=== PATIENT | female | born 1935 | race Caucasian/White ===

== ENCOUNTER 2016-10-05 14:03 | Inpatient (IN) | payer MEDICARE, OTHER ==
[~2016-10-05] VITALS: Ht 157.5 cm; Wt 79.5 kg
[2016-10-05] VITALS (20 sets, daily range): BP systolic 83–183; BP diastolic 44–110; PULSE 76–90; RESP 12–21
[2016-10-05] MEDS ORDERED: ONDANSETRON 4 MG INJ IV STA (14:21)
[2016-10-05] MEDS ORDERED: FAMOTIDINE 20 MG INJ IV STA (14:21)
[2016-10-05] MEDS ORDERED: SOD CHLORIDE 0.9% 1,000 ML IV STA (14:21)
[2016-10-05] MEDS ORDERED: morphine 4 MG/ML VIAL IV STA ×2 (14:21→18:43)
[2016-10-05 15:00] LABS: ADD SCAN DIFF NO
[2016-10-05 15:03] LABS: BASOPHIL # 0.1 10^3/ul (0.0-0.1); BASOPHILS % 0.5 % (0.0-2.0); EOSINOPHILS % 0.4 % (0.0-7.0); HEMATOCRIT 40.1 % (37.0-47.0); HEMOGLOBIN 12.6 g/dl (12.0-16.0); LYMPHOCYTES # 1.7 10^3/ul (0.8-2.9); LYMPHOCYTES % 15.3 % (15.0-51.0); MEAN CORPUSCULAR HEMOGLOBIN 28.4 pg (29.0-33.0); MEAN CORPUSCULAR HGB CONC 31.4 g/dl (32.0-37.0); MEAN CORPUSCULAR VOLUME 90.5 fl (82.0-101.0); MEAN PLATELET VOLUME 11.1 fl (7.4-10.4); MONOCYTE # 0.4 10^3/ul (0.3-0.9); MONOCYTES % 3.8 % (0.0-11.0); NEUTROPHIL # 8.6 10^3/ul (1.6-7.5); NEUTROPHILS % 79.6 % (39.0-77.0); PLATELET COUNT 295 10^3/UL (140-415); RED BLOOD COUNT 4.43 10^6/ul (4.20-5.40); RED CELL DISTRIBUTION WIDTH 15.3 % (11.5-14.5); WHITE BLOOD COUNT 10.8 10^3/ul (4.8-10.8)
[2016-10-05 15:23] LABS: ALBUMIN 4.1 g/dl (3.3-4.9)
[2016-10-05 15:24] LABS: POTASSIUM 4.4 mmol/L (3.5-5.1)
[2016-10-05 15:26] LABS: ALBUMIN/GLOBULIN RATIO 1.24; BILIRUBIN,INDIRECT 0.6 mg/dl (0-1.1); BILIRUBIN,TOTAL 0.6 mg/dl (0.2-1.3); CALCIUM 9.9 mg/dl (8.4-10.2); CREATININE 0.59 mg/dl (0.44-1.00); TOTAL PROTEIN 7.4 g/dl (6.1-8.1)
[2016-10-05 16:35] LABS: ADD UMIC YES; URINE BILIRUBIN (Dip) NEGATIVE (NEGATIVE); URINE BLOOD (Dip) NEGATIVE (NEGATIVE); URINE COLOR LT. YELLOW (YELLOW); URINE GLUCOSE (Dip) NEGATIVE (NEGATIVE); URINE KETONES (Dip) NEGATIVE (NEGATIVE); URINE LEUKOCYTE ESTERASE (Dip) 1+ (NEGATIVE); URINE NITRITE (Dip) NEGATIVE (NEGATIVE); URINE TOTAL PROTEIN (Dip) NEGATIVE (NEGATIVE); URINE UROBILINOGEN (Dip) 0.2 E.U./dL (0.1-1.0)
--- NOTE | 2016-10-05 16:36 | RADRPT ---
PROCEDURE: CT Abdomen and Pelvis without contrast. CLINICAL INDICATION: Abdominal and pelvic pain. TECHNIQUE: CT scan of the abdomen and pelvis without contrast was performed. Coronal and sagittal reformatted images were obtained from the axial source images. Images were reviewed on a high-resolu [employer] PACS workstation. Total exam DLP is 1188.68 mGy-cm. CTDIvol is 21.06 mGy. One or more of the following dose reduction techniques were used: Automated exposure control, adjustment of the mA and/ or kV according to patient size, use of iterative reconstruction technique. COMPARISON: None. FINDINGS: There is mild linear scarring or atelectasis at the left lung base. The lung bases are otherwise no rmal. There is no pleural effusion or pericardial effusion. The heart is mildly enlarged. The liver is normal in size and attenuation. There is no focal hepatic lesion. Gallstones are present in the gallbladder. There is no evidence of cholecystitis. The bile ducts a re normal. The spleen is normal in size. There is no focal splenic lesion. Both adrenals are normal with no enlargement or mass. The pancreas is unremarkable with no mass or evidence of pancreatitis. There is no renal mass or hydronephrosis. There are small nonobstructing 0.1-0.2 cm calculi in both kidneys. The abdominal aorta is not dilated. There is calcification in the aorta consistent with atherosclero sis. There is no retroperitoneal lymphadenopathy or mass. There is a soft tissue mass in the pelvis posterior to the right acetabulum measuring 4.6 x 3.5 x 4. 7 cm in AP, transverse, and cranial caudal dimensions. Small calcifications are present within the mass. The mass has smooth margins. There is no other pelvic lymphadenopathy or mass. The bladder and distal ureters are normal. The periappendiceal region is unremarkable with no evidence of appendicitis. There is diverticulosis throughout the colon. There is no evidence of diverticulitis. There is a l eft lower quadrant spigelian hernia containing a loop of small bowel with surrounding edema consiste nt with incarceration of the spigelian hernia. There is no free fluid or free gas. There is no abscess or perforation demonstrated. There are degenerative changes of the spine. There is no fracture or lytic lesion. IMPRESSION: 1. Mild linear scarring or atelectasis at the left lung base. 2. Mild cardiomegaly. 3. Gallstones in the gallbladder. No evidence of cholecystitis. 4. Small nonobstructing bilateral renal calculi. 5. Atherosclerosis. 6. Soft tissue mass in the pelvis posterior to the right acetabulum measuring up to 4.7 cm in maxim al dimension. This may be benign or malignant. Correlation with MRI should be considered. 7. Diverticulosis throughout the colon. No evidence of diverticulitis. 8. Left lower quadrant spigelian hernia containing a loop of bowel with surrounding edema consisten t with incarceration. 9. Degenerative changes of the spine. Call report: A call report of the findings was made to Dr. Arenas on 10/05/2016 at 1630 hours. RPTAT: QQ .Rodri Don MD, MD Date Time Electronically viewed and signed by .Rodri Don MD, on 10/05/2016 16:36 .R/
[2016-10-05] MEDS ORDERED: LACT-9 PO (16:49)
[2016-10-05 16:50] LABS: BACTERIA,URINE MANY; SQUAMOUS EPITHELIAL CELL,UR MANY; URINE RBCS 0-2 /HPF (0)
[2016-10-05] MEDS ORDERED: MAGN1TAB PO (16:52)
[2016-10-05] MEDS ORDERED: APIX5TAB PO (16:53)
[2016-10-05] MEDS ORDERED: ATOR80TA75 PO (16:53)
[2016-10-05] MEDS ORDERED: FAMO-18 PO (16:54)
[2016-10-05] MEDS ORDERED: DOCU-144 PO (16:54)
[2016-10-05] MEDS ORDERED: LISI-313 PO (16:55)
[2016-10-05] MEDS ORDERED: SIME125T PO (16:56)
[2016-10-05] MEDS ORDERED: METO-448 PO (16:57)
[2016-10-05] MEDS ORDERED: ACET325T45 PO (16:58)
[2016-10-05] MEDS ORDERED: POLY17PO6 PO (16:59)
[2016-10-05] MEDS ORDERED: MULT-105 PO (16:59)
[2016-10-05] MEDS ORDERED: MAGN400O4 PO (17:00)
[2016-10-05] MEDS ORDERED: ONDANSETRON 4 MG INJ IV PRN ×4 (17:00→21:30)
[2016-10-05] MEDS ORDERED: ACETAMINOPHEN 325 MG TAB PO PRN ×2 (17:00→18:30)
[2016-10-05] MEDS ORDERED: ESCI10TA PO (17:01)
[2016-10-05] MEDS ORDERED: TEMA15CA PO (17:01)
[2016-10-05] MEDS ORDERED: BISA10SU75 PR (17:02)
[2016-10-05] MEDS ORDERED: FLEETPED PR (17:03)
--- NOTE | 2016-10-05 17:06 | CONS ---
Date/Time of Note Date/Time of Note DATE: 10/05/16 TIME: 17:05 Assessment/Plan Assessment/Plan Chief Complaint/Hosp Course ASSESSMENT AND PLAN: This is an 81-year-old female who presents with: soft tissue mass in the right acetabulum, questionable malignancy versus benign. check tumor markers will d/w family how aggressive we will be with w-up Mild anemia. We will continue to monitor hemoglobin and hematocrit levels. Incarcerated abdominal hernia surg eval History of cerebrovascular accident with left-sided hemiparesis. dc anticoagulation prior surgery. Once the patient has been cleared from surgery we will resume full anticoagulation. History of coronary artery disease, continue medical management. Hypertension. Blood pressure is currently controlled. We will continue to monitor. We will resume blood pressure medications once the patient is tolerating p.o. History of dyslipidemia. Continue statin therapy. Gastrointestinal and deep venous thrombosis prophylaxis. Continue Pepcid and heparin. General debility. We will place a physical therapy consult for evaluation. Problems: Consultation Date/Type/Reason Admit Date/Time 10/05/16 Date of Consultation: Oct 05, 2016 Type of Consultation: HEMEON Reason for Consultation ANEMIA PELVIC MASS Referring Provider: MEGAN FLORES DO Hx of Present Illness This is an 81-year-old female with a past medical history of hypertension, a history of CVA with left-sided weakness, history of diverticulitis, history of coronary artery disease, history of depression, history of dyslipidemia, who presents to [facility] for evaluation of abdominal pain. The patient states the pain has been sharp and ongoing for the last 3 days. She describes it as localizing to her left lower quadrant. The patient felt this was similar to previous history of diverticulitis. She was having mild nausea, but denied any vomiting. The patient upon arrival to the emergency room had a CT scan of the abdomen and pelvis which showed diverticulitis and left lower quadrant hernia containing a loop of bowel, surrounding edema, consistent with incarceration, as well as a soft tissue mass in the pelvis in the posterior right acetabulum measuring 4.7 cm. I WAS ASKED TO SEE PT RE soft tissue mass in the pelvis PAST MEDICAL HISTORY: As stated above, history of hypertension, history of CVA with left-sided hemiparesis, history of dyslipidemia, history of coronary artery disease, history of depression. PAST SURGICAL HISTORY: Ovarian cyst removal. ALLERGIES: NO KNOWN DRUG ALLERGIES. FAMILY HISTORY: Noncontributory. MEDICATIONS: The patient's medications have been reviewed and reconciled. REVIEW OF SYSTEMS: A 14-point review of systems was conducted. Pertinent positives stated in HPI, otherwise negative. Social History Smoking Status: Never smoker Exam/Review of Systems Vital Signs Vitals Vital Signs Date Time Temp Pulse Resp B/P Pulse Ox O2 Delivery O2 Flow Rate FiO2 10/05/16 14:10 98.7 84 20 141/90 98 Exam PHYSICAL EXAMINATION: HEENT: Head is normocephalic. Pupils are reactive to light. NECK: Supple. HEART: Regular rate. LUNGS: Show diminished breath sounds at the base. ABDOMEN: Soft with abdominal binder. There is some mild tenderness to palpation. No rebound. EXTREMITIES: Negative for clubbing or cyanosis. No edema. DERMATOLOGIC: No rashes. MUSCULOSKELETAL: No joint effusions. NEUROLOGIC: There is noted left-sided weakness. Results Result Diagram: 10/05/16 1430 10/05/16 1430 Results 24 hrs Laboratory Tests Test 10/05/16 14:30 10/05/16 16:10 White Blood Count 10.8 Red Blood Count 4.43 Hemoglobin 12.6 Hematocrit 40.1 Mean Corpuscular Volume 90.5 Mean Corpuscular Hemoglobin 28.4 L Mean Corpuscular Hemoglobin Concent 31.4 L Red Cell Distribution Width 15.3 H Platelet Count 295 Mean Platelet Volume 11.1 H Neutrophils % 79.6 H Lymphocytes % 15.3 Monocytes % 3.8 Eosinophils % 0.4 Basophils % 0.5 Nucleated Red Blood Cells % 0.0 Neutrophils # 8.6 H Lymphocytes # 1.7 Monocytes # 0.4 Eosinophils # 0.0 Basophils # 0.1 Nucleated Red Blood Cells # 0.0 Sodium Level 139 Potassium Level 4.4 Chloride Level 101 Carbon Dioxide Level 25 Anion Gap 17 H Blood Urea Nitrogen 17 Creatinine 0.59 Glucose Level 118 Lactic Acid Level 1.2 Calcium Level 9.9 Total Bilirubin 0.6 Direct Bilirubin 0.00 Indirect Bilirubin 0.6 Aspartate Amino Transf (AST/SGOT) 28 Alanine Aminotransferase (ALT/SGPT) 28 Alkaline Phosphatase 150 H Total Protein 7.4 Albumin 4.1 Globulin 3.30 H Albumin/Globulin Ratio 1.24 Lipase 28 Urine Color LT. YELLOW Urine Clarity CLOUDY Urine pH 6.0 Urine Specific [place] 1.015 Urine Ketones NEGATIVE Urine Nitrite NEGATIVE Urine Bilirubin NEGATIVE Urine Urobilinogen 0.2 E.U./dL Urine Leukocyte Esterase 1+ H Urine Microscopic RBC 0-2 Urine Microscopic WBC 10-25 Urine Squamous Epithelial Cells MANY Urine Bacteria MANY Urine Hemoglobin NEGATIVE Urine Glucose NEGATIVE Urine Total Protein NEGATIVE TERRA RANGEL MD Oct 05, 2016 17:06
[2016-10-05] MEDS ORDERED: SOD CHLORIDE 0.9% 1,000 ML IV SCH (18:10)
--- NOTE | 2016-10-05 18:18 | ERA ---
ER Documentation Chief Complaint Date/Time DATE: 10/05/16 TIME: 18:15 Chief Complaint AP LOWER QUADS WITH NORMAL BM AND NO N/V. NO DIARRHEA. POOR PO INTAKE HPI This is an 81-year-old female who presents to the emergency room for evaluation of abdominal pain. The patient localizes her pain to the left lower quadrant and states that it is an achy and sharp pain that has been present for 3 days. The patient states that this feels similar to her previous episodes of diverticulitis. She states that she has mild nausea but denies any vomiting or diarrhea associated with this. Patient states that she is passing gas, but has not had a bowel movement today. The patient denies any aggravating or relieving factors for her pain and came to the ER for evaluation ROS All systems reviewed and are negative except as per history of present illness. Medications Home Meds Reported Medications Sod Phosphate/Sod Biphosphate* (Fleet* Enema Pediatric) 66.6 Ml Soln, 66.6 ML WI Q2DAYS Y for CONSTIPATION, ENEMA 10/05/16 Bisacodyl* (Bisacodyl*) 10 Mg Supp, 10 MG WI Q24H Y for PRN, SUPP 10/05/16 Temazepam* (Temazepam*) 15 Mg Capsule, 15 MG PO HS Y for INSOMNIA, CAP 10/05/16 Escitalopram Oxalate* (Lexapro*) 10 Mg Tablet, 10 MG PO QHS, #30 TAB 10/05/16 Magnesium Hydroxide* (Milk Of Magnesia*) 400 Mg/5 Ml Oral.susp, 30 ML PO Q24H Y for PRN, ML 10/05/16 Polyethylene Glycol* (Miralax*) 17 Gm Powd.pack, 17 GM PO DAILY, #30 PACKET 10/05/16 Multivitamin with Minerals (Multivitamins with Minerals) 1 Each Tablet, 1 EACH PO DAILY, TAB 10/05/16 Acetaminophen* (Acetaminophen*) 325 Mg Tablet, 650 MG PO Q4H Y for FOR PAIN 1-, #30 TAB 10/05/16 Metoprolol Tartrate* (Lopressor*) 25 Mg Tab, 12.5 MG PO BID, #60 TAB HOLD IF SBP<110 10/05/16 Simethicone* (Phazyme*) 125 Mg Tab.chew, 125 MG PO QHS Y for DISTENSION/GAS/ BLOATING, TAB.CHEW 10/05/16 Lisinopril* (Lisinopril*) 5 Mg Tablet, 5 MG PO DAILY, #30 TAB HOLD IF SBP<110 10/05/16 Famotidine* (Pepcid*) 20 Mg Tablet, 20 MG PO BID, #60 TAB 10/05/16 Docusate Sodium* (Colace*) 100 Mg Capsule, 100 MG PO BID, #60 CAP 10/05/16 Atorvastatin* (Atorvastatin*) 80 Mg Tablet, 80 MG PO QHS, #30 TAB 10/05/16 Apixaban* (Eliquis*) 5 Mg Tablet, 5 MG PO BID, TAB 10/05/16 Magnesium Carbonate/Al Hydrox (Gaviscon Es Tablet Chew) 1 Each Tab.chew, 1 EACH PO TID Y for PRN, TAB.CHEW 10/05/16 Lactose-Free Food (ENSURE LIQUID) 237 Ml Liquid, 237 ML PO BID 10/05/16 Allergies Allergies: Coded Allergies: No Known Allergy (Unverified , 10/05/16) PMhx/Soc History of Surgery: Yes (OVARIAN CYST REMOVAL ) Anesthesia Reaction: No Hx Neurological Disorder: Yes (STROKE WITH LT SIDE WEAKNESS ) Hx Respiratory Disorders: No Hx Cardiac Disorders: Yes (HTN ) Hx Psychiatric Problems: No Hx Miscellaneous Medical Probl: Yes (DIVERTICULITIS ) Hx Alcohol Use: No Hx Substance Use: No Hx Tobacco Use: No Smoking Status: Never smoker Physical Exam Vitals Vital Signs Date Time Temp Pulse Resp B/P Pulse Ox O2 Delivery O2 Flow Rate FiO2 10/05/16 17:30 90 18 135/87 96 Room Air 10/05/16 14:10 98.7 84 20 141/90 98 Physical Exam INITIAL VITAL SIGNS: Reviewed by me GENERAL: The patient is well developed and appropriate for usual state of health in no apparent distress HEENT: Pupils equal, round, and reactive to light. EOMI. There is no scleral icterus. NECK: C-spine is soft and supple, there is no meningismus. There is no cervical lymphadenopathy. LUNGS: Clear to auscultation bilaterally. There are no rales, wheezes or rhonchi. HEART: Regular rate and rhythm, no murmurs, clicks, rubs or gallops. ABDOMEN: Tender to palpation in the left lower quadrant, bowel sounds 4 EXTREMITIES: There is no peripheral cyanosis or edema. No focal swelling or erythema. NEUROLOGICAL: The patient moves all four extremities with 5/5 strength. Cranial nerves II - XII are intact. Normal gait. Alert and oriented SKIN: There is no apparent rash or petechiae. HEME/LYMPHATIC: There is no evidence of excessive bruising or lymphedema. PSYCHIATRIC: The patient does not appear anxious or depressed. Result Diagram: 10/05/16 1430 10/05/16 1430 Results 24 hrs Laboratory Tests Test 10/05/16 14:30 10/05/16 16:10 White Blood Count 10.810^3/ul Red Blood Count 4.4310^6/ul Hemoglobin 12.6g/dl Hematocrit 40.1% Mean Corpuscular Volume 90.5fl Mean Corpuscular Hemoglobin 28.4pg Mean Corpuscular Hemoglobin Concent 31.4g/dl Red Cell Distribution Width 15.3% Platelet Count 63366^3/UL Mean Platelet Volume 11.1fl Neutrophils % 79.6% Lymphocytes % 15.3% Monocytes % 3.8% Eosinophils % 0.4% Basophils % 0.5% Nucleated Red Blood Cells % 0.0/100WBC Neutrophils # 8.610^3/ul Lymphocytes # 1.710^3/ul Monocytes # 0.410^3/ul Eosinophils # 0.010^3/ul Basophils # 0.110^3/ul Nucleated Red Blood Cells # 0.010^3/ul Sodium Level 139mmol/L Potassium Level 4.4mmol/L Chloride Level 101mmol/L Carbon Dioxide Level 25mmol/L Anion Gap 17 Blood Urea Nitrogen 17mg/dl Creatinine 0.59mg/dl Glucose Level 118mg/dl Lactic Acid Level 1.2mmol/L Calcium Level 9.9mg/dl Total Bilirubin 0.6mg/dl Direct Bilirubin 0.00mg/dl Indirect Bilirubin 0.6mg/dl Aspartate Amino Transf (AST/SGOT) 28IU/L Alanine Aminotransferase (ALT/SGPT) 28IU/L Alkaline Phosphatase 150IU/L Total Protein 7.4g/dl Albumin 4.1g/dl Globulin 3.30g/dl Albumin/Globulin Ratio 1.24 Lipase 28U/L Urine Color LT. YELLOW Urine Clarity CLOUDY Urine pH 6.0 Urine Specific [place] 1.015 Urine Ketones NEGATIVE Urine Nitrite NEGATIVE Urine Bilirubin NEGATIVE Urine Urobilinogen 0.2 E.U./dL Urine Leukocyte Esterase 1+ Urine Microscopic RBC 0-2/HPF Urine Microscopic WBC 10-25/HPF Urine Squamous Epithelial Cells MANY Urine Bacteria MANY Urine Hemoglobin NEGATIVE Urine Glucose NEGATIVE% Urine Total Protein NEGATIVE Current Medications Medications (Trade) Dose Ordered Sig/Portillo Route PRN Reason Start Time Stop Time Status Last Admin Dose Admin Sodium Chloride (NS) 1,000 ml @ 1,000 mls/hr Q1H STAT IV 10/05/16 14:21 10/05/16 15:20 DC 10/05/16 15:12 Morphine Sulfate (morphine) 4 mg ONCE STAT IV 10/05/16 14:21 10/05/16 14:22 DC 10/05/16 15:12 Ondansetron HCl (Zofran Inj) 4 mg ONCE STAT IV 10/05/16 14:21 10/05/16 14:22 DC 10/05/16 15:12 Famotidine (Pepcid Iv) 20 mg ONCE STAT IV 10/05/16 14:21 10/05/16 14:22 DC 10/05/16 15:12 Ondansetron HCl (Zofran Inj) 4 mg BRIDGE ORDER PRN IV NAUSEA AND/OR VOMITING 10/05/16 17:00 10/06/16 16:59 Acetaminophen 650 mg 650 mg ER BRIDGE PRN PO MILD PAIN/FEVER 10/05/16 17:00 10/06/16 16:59 Sodium Chloride (NS) 1,000 ml @ 80 mls/hr [id number] IV 10/05/16 18:10 10/06/16 06:39 Ondansetron HCl (Zofran Inj) 4 mg BRIDGE ORDER PRN IV NAUSEA AND/OR VOMITING 10/05/16 18:30 10/06/16 18:29 Acetaminophen (Tylenol Tab) 650 mg ER BRIDGE PRN PO MILD PAIN/FEVER 10/05/16 18:30 10/06/16 18:29 Procedures/MDM CT abdomen pelvis without: 1. Mild linear scarring or atelectasis at the left lung base. 2. Mild cardiomegaly. 3. Gallstones in the gallbladder. No evidence of cholecystitis. 4. Small nonobstructing bilateral renal calculi. 5. Atherosclerosis. 6. Soft tissue mass in the pelvis posterior to the right acetabulum measuring up to 4.7 cm in maximal dimension. This may be benign or malignant. Correlation with MRI should be considered. 7. Diverticulosis throughout the colon. No evidence of diverticulitis. 8. Left lower quadrant spigelian hernia containing a loop of bowel with surrounding edema consistent with incarceration. 9. Degenerative changes of the spine. EKG: Rate/Rhythm: [Normal Sinus Rhythm] QRS, ST, T-waves: [No changes consistent w/ acute ischemia] Impression: [No evidence of ischemia or arrhythmia] This 81-year-old female presents to the ER for evaluation of abdominal pain. When I evaluated this patient she did have left lower quadrant abdominal pain and does have a history of diverticulitis. CT of abdomen pelvis was obtained which does show an incarcerated spigelian hernia with mild edema. I did contact this patient's primary care physician, Dr. Chin who would like this patient admitted to Dr. Bloom. I have contacted our general surgeon collections technician who agrees to see this patient. This patient and the patient's son are aware this patient's condition and the patient will be kept n.p.o. Pain is controlled with morphine. The patient is hemodynamically stable for [facility] floor at this time. Departure Diagnosis: Primary Impression: Incarcerated hernia Additional Impressions: Spigelian hernia Abdominal pain Condition: Stable IRAIDA JAMES DO Oct 05, 2016 18:18
--- NOTE | 2016-10-05 19:24 | CONS ---
Date/Time of Note Date/Time of Note DATE: 10/05/16 TIME: 19:09 Assessment/Plan Assessment/Plan Chief Complaint/Hosp Course 81-year-old female with incarcerated left spigelian hernia * CT scan personally reviewed. I agree with the radiologist's findings. * Given incarcerated nature of hernia containing small bowel and inflammatory changes within the hernia I would recommend emergent surgical intervention to prevent bowel strangulation. * The patient has a recent history of a CVA and is on anticoagulation. This significantly increases the risk of an operative procedure, however, the consequences of nonoperation would before more detrimental to the patient. * I discussed the above with the patient's son at the bedside including all risks and benefits of the procedure, including, but not limited to: Wound infection, excessive bleeding, further cerebrovascular accident, cardiac complications, injury to surrounding intra-abdominal organs, hernia recurrence, etc. also discussed the case with the patient's grandson was a polytechnic registrar. They all understand and agreed to the treatment plan as outlined. * Informed consent will be obtained and she'll be scheduled for emergent surgical intervention Problems: Consultation Date/Type/Reason Admit Date/Time 10/05/16 Date of Consultation: Oct 05, 2016 Type of Consultation: GENERAL SURGERY Reason for Consultation Abdominal pain Hx of Present Illness Patient is an 81-year-old female with a history of CVA in June 2016, diverticulitis who presents with a 1 day history of abdominal pain. The history is mostly obtained from the patient's son at the bedside. The pain is located in the left lower quadrant. It was associated with nausea, but no vomiting. She did have a regular bowel movement yesterday, but no bowel movement today. She has been passing flatus. There has been no fever/chills. On arrival to the emergency room the patient was found to be hemodynamically stable and without leukocytosis. A CT scan of the abdomen and pelvis showed findings consistent with an incarcerated left Spigelian hernia containing a loop of bowel. A 14 point review of systems was conducted and was negative except for that which was mentioned in history of present illness Past Medical History Medical History: diverticulitis, other (CVA) Past Surgical History Past Surgical Hx: no surgical history Family History Significant Family History: no pertinent family hx Social History Smoking Status: Never smoker Exam/Review of Systems Vital Signs Vitals Vital Signs Date Time Temp Pulse Resp B/P Pulse Ox O2 Delivery O2 Flow Rate FiO2 10/05/16 18:00 89 20 152/80 98 Nasal Cannula 2.0 10/05/16 14:10 98.7 Exam GENERAL: Awake, alert, oriented 3. No acute distress. SKIN: No jaundice. HEENT: PERRLA, EOMI, No Scleral Icterus NECK: Supple without JVD CARDIOVASCULAR: S1S2, regular rate and rhythm. No murmurs appreciated. RESPIRATORY: Clear to auscultation bilaterally. ABDOMEN: Obese, Soft, bowel sounds present, nondistended, there is left lower quadrant tenderness to palpation. There is a firm, nonreducible mass in the area of the patient's tenderness. There is no rebound or guarding or evidence of peritonitis. There are no overlying skin changes. EXTREMITIES: There is left upper extremity and left lower extremity weakness from prior CVA NEUROLOGIC: Cranial nerves II-XII are intact. Sensation is intact grossly. Results Result Diagram: 10/05/16 1430 10/05/16 1430 Results 24 hrs Laboratory Tests Test 10/05/16 14:30 10/05/16 16:10 White Blood Count 10.8 Red Blood Count 4.43 Hemoglobin 12.6 Hematocrit 40.1 Mean Corpuscular Volume 90.5 Mean Corpuscular Hemoglobin 28.4 L Mean Corpuscular Hemoglobin Concent 31.4 L Red Cell Distribution Width 15.3 H Platelet Count 295 Mean Platelet Volume 11.1 H Neutrophils % 79.6 H Lymphocytes % 15.3 Monocytes % 3.8 Eosinophils % 0.4 Basophils % 0.5 Nucleated Red Blood Cells % 0.0 Neutrophils # 8.6 H Lymphocytes # 1.7 Monocytes # 0.4 Eosinophils # 0.0 Basophils # 0.1 Nucleated Red Blood Cells # 0.0 Sodium Level 139 Potassium Level 4.4 Chloride Level 101 Carbon Dioxide Level 25 Anion Gap 17 H Blood Urea Nitrogen 17 Creatinine 0.59 Glucose Level 118 Lactic Acid Level 1.2 Calcium Level 9.9 Total Bilirubin 0.6 Direct Bilirubin 0.00 Indirect Bilirubin 0.6 Aspartate Amino Transf (AST/SGOT) 28 Alanine Aminotransferase (ALT/SGPT) 28 Alkaline Phosphatase 150 H Total Protein 7.4 Albumin 4.1 Globulin 3.30 H Albumin/Globulin Ratio 1.24 Lipase 28 Urine Color LT. YELLOW Urine Clarity CLOUDY Urine pH 6.0 Urine Specific [place] 1.015 Urine Ketones NEGATIVE Urine Nitrite NEGATIVE Urine Bilirubin NEGATIVE Urine Urobilinogen 0.2 E.U./dL Urine Leukocyte Esterase 1+ H Urine Microscopic RBC 0-2 Urine Microscopic WBC 10-25 Urine Squamous Epithelial Cells MANY Urine Bacteria MANY Urine Hemoglobin NEGATIVE Urine Glucose NEGATIVE Urine Total Protein NEGATIVE Medications Medications Current Medications Sodium Chloride (NS) 1,000 ml @ 80 mls/hr [id number] IV ; Start 10/05/16 at 18:10 ; Stop 10/06/16 at 06:39 Procedures Procedures PROCEDURE: CT Abdomen and Pelvis without contrast. CLINICAL INDICATION: Abdominal and pelvic pain. TECHNIQUE: CT scan of the abdomen and pelvis without contrast was performed. Coronal and sagittal reformatted images were obtained from the axial source images. Images were reviewed on a high-resolution PACS workstation. Total exam DLP is 1188.68 mGy-cm. CTDIvol is 21.06 mGy. One or more of the following dose reduction techniques were used: Automated exposure control, adjustment of the mA and/or kV according to patient size, use of iterative reconstruction technique. COMPARISON: None. FINDINGS: There is mild linear scarring or atelectasis at the left lung base. The lung bases are otherwise normal. There is no pleural effusion or pericardial effusion. The heart is mildly enlarged. The liver is normal in size and attenuation. There is no focal hepatic lesion. Gallstones are present in the gallbladder. There is no evidence of cholecystitis. The bile ducts are normal. The spleen is normal in size. There is no focal splenic lesion. Both adrenals are normal with no enlargement or mass. The pancreas is unremarkable with no mass or evidence of pancreatitis. There is no renal mass or hydronephrosis. There are small nonobstructing 0.1- 0.2 cm calculi in both kidneys. The abdominal aorta is not dilated. There is calcification in the aorta consistent with atherosclerosis. There is no retroperitoneal lymphadenopathy or mass. There is a soft tissue mass in the pelvis posterior to the right acetabulum measuring 4.6 x 3.5 x 4.7 cm in AP, transverse, and cranial caudal dimensions. Small calcifications are present within the mass. The mass has smooth margins. There is no other pelvic lymphadenopathy or mass. The bladder and distal ureters are normal. The periappendiceal region is unremarkable with no evidence of appendicitis. There is diverticulosis throughout the colon. There is no evidence of diverticulitis. There is a left lower quadrant spigelian hernia containing a loop of small bowel with surrounding edema consistent with incarceration of the spigelian hernia. There is no free fluid or free gas. There is no abscess or perforation demonstrated. There are degenerative changes of the spine. There is no fracture or lytic lesion. IMPRESSION: 1. Mild linear scarring or atelectasis at the left lung base. 2. Mild cardiomegaly. 3. Gallstones in the gallbladder. No evidence of cholecystitis. 4. Small nonobstructing bilateral renal calculi. 5. Atherosclerosis. 6. Soft tissue mass in the pelvis posterior to the right acetabulum measuring up to 4.7 cm in maximal dimension. This may be benign or malignant. Correlation with MRI should be considered. 7. Diverticulosis throughout the colon. No evidence of diverticulitis. 8. Left lower quadrant spigelian hernia containing a loop of bowel with surrounding edema consistent with incarceration. 9. Degenerative changes of the spine. Call report: A call report of the findings was made to Dr. James on 2016 at 1630 hours. RPTAT: QQ .Rodri Don MD, Date Time Electronically viewed and signed by .Rodri Don MD, on 10/05/2016 16:36 .R/ CC: IRAIDA JAMES MICHAEL A. MD Oct 05, 2016 19:19
[2016-10-05] MEDS ORDERED: HYDROmorphONE (0.2 MG/ML) 10ML SYG IV PRN (20:00)
[2016-10-05] MEDS ORDERED: FENTAnyl 50 MCG/ML VIAL IV PRN ×2 (20:00)
[2016-10-05] MEDS ORDERED: LABETALOL HCL 20MG INJ IV PRN (20:00)
[2016-10-05] MEDS ORDERED: hydrALAzine 20 MG INJ IV PRN (20:00)
[2016-10-05] MEDS ORDERED: EPHEDrine SULFATE 50 MG/5 ML SYG IV PRN (20:00)
[2016-10-05] MEDS ORDERED: MEPERIDINE 25 MG INJ IV PRN (20:00)
[2016-10-05] MEDS ORDERED: FENTAnyl 50 MCG/ML VIAL ONE (20:02)
[2016-10-05] MEDS: BUPIVACAINE 0.25% (MPF) 30 ML INJ ONE ×2 (20:16→21:20)
[2016-10-05] MEDS ORDERED: POLYMYXIN/BACITRACIN 1L IRRIG ONE (20:48)
[2016-10-05] MEDS ORDERED: DEXAMETHASONE 4 MG/ML 1 ML INJ ONE (21:17)
[2016-10-05] MEDS ORDERED: ONDANSETRON 4 MG INJ ONE (21:19)
[2016-10-05] MEDS ORDERED: GLYCOPYRROLATE 0.4 MG INJ ONE (21:29)
[2016-10-05] MEDS ORDERED: NEOSTIGMINE 3 MG/3 ML SYRINGE ONE (21:29)
[2016-10-05] MEDS: CEFAZOLIN 2 GM/50 ML (PMX) 50 ML IVPB SCH (21:30)
--- NOTE | 2016-10-05 21:49 | OPR ---
Date/Time of Note Date/Time of Note DATE: 10/05/16 TIME: 21:38 Operative Report Procedure Date: Oct 05, 2016 Preoperative Diagnosis Incarcerated abdominal wall hernia Postoperative Diagnosis Incarcerated abdominal wall hernia Operation Performed 1. Laparoscopic repair of incarcerated abdominal wall hernia 2. Laparoscopic lysis of adhesions Surgeon: SULEIMAN LUI MD Anesthesia: general Anesthesiologist: AURY COLEMAN Estimated Blood Loss: minimal Specimens None Complications: None Pt Condition Post Procedure: stable Disposition: PACU Indications The patient is an obese 81-year-old female with a history of recent CVA on anti- thrombotic therapy who presented to the emergency room complaining of a 1 day history of severe left lower quadrant abdominal pain. Patient had clinical signs and symptoms of an incarcerated left lower quadrant abdominal wall hernia. CT scan which was done confirmed the presence of incarcerated small bowel within the hernia. She was therefore scheduled for emergent surgical repair. All risks and benefits of the procedure, including, but not limited to: Wound infection, excessive bleeding given the fact that she is on anti- thrombotic therapy, repeat CVA, injury to intra-abdominal organs, hernia recurrence, possible need for bowel resection, , etc. were all explained to the patient's son in extensive detail. Both the patient and the son fully understood and wished to proceed with the procedure. Informed consent was obtained. Operative\Procedure Findings Abdominal wall hernia containing incarcerated small bowel inferior and medial to the iliac crest on the left side. Bowel was hemorrhagic, but viable. Procedure Description Patient was brought to the operating room and placed supine on the operating table. Bilateral sequential compression devices were placed on both lower extremities. A dose of broad-spectrum perioperative intravenous antibiotics was given. The patient had a Cramer catheter inserted while in the emergency room. After the induction of smooth general endotracheal anesthesia the patient's abdomen was prepped and draped in standard surgical fashion. After performance of the surgical timeout a 5 mm incision was made in the midline subxiphoid area. Veress needle was used to access the intra-abdominal cavity atraumatically. Pneumoperitoneum was then obtained and the Veress needle was exchanged for a 5 mm trocar through which a 5 mm 30 laparoscope was placed. Diagnostic laparoscopy showed a hernia defect in the left lower quadrant inferior and lateral to the location of a spigelian hernia. This hernia defect was more inferior and medial to the iliac crest on the left side. There was small bowel incarcerated within the hernia defect. There were intra-abdominal adhesions to the anterior abdominal wall. At this point another 5 mm port was placed in line with the umbilicus near the anterior axillary line. Using the LigaSure device lysis of adhesions was performed in order to be able to place the third port. The 12 mm port was then placed in the right lower quadrant. All port sites were anesthetized with 0.25% Marcaine prior to incision. Using manual external pressure and slight traction the hernia was reduced. The small bowel was examined. It was noted to be hemorrhagic, but viable. The hernia defect was then measured. It measured approximately 2 cm in diameter. Warm irrigation was used over the area of the hemorrhagic small bowel. Small bowel was observed during the entire procedure and repair of the hernia defect and appeared more viable as the hemorrhagic nature improved. It was then decided to repair the hernia defect. The defect was repaired using a 9 cm round Covidien Symbotex mesh. A 3-0 Vicryl suture was placed through the mid portion of the mesh. Mesh was then soaked in antibiotic irrigation and inserted into the field. A small incision was made using the 11 blade scalpel the center of the hernia defect and the suture passer was passed through the center of the defect. The marking suture in the midportion of the mesh was then grasped and pulled out through this site. The mesh was anchored to the abdominal wall. The mesh was then secured in place in double crown fashion using a secure strap tacker. With the repair complete hemostasis was inspected for and noted to be total. The fascia of the 12 mm port site was then reapproximated using an Endo Close device and 0 Vicryl suture. Pneumoperitoneum was then released and all remaining trochars were withdrawn under direct vision. The incisions were irrigated with more warm normal saline. Further local anesthesia was applied around the skin of the incision sites. The skin was then reapproximated using 4- 0 Monocryl sutures in subcuticular fashion. Incisions were cleaned and Dermabond was applied as was an abdominal binder. The patient was then awoken from anesthesia and transported to the recovery room in stable condition. All counts were correct at the end of the case 2 SULEIMAN LUI MD Oct 05, 2016 21:48
[2016-10-05] MEDS: HYDROmorphONE (0.2 MG/ML) 10ML SYG IV PRN ×2 (22:10→22:21)
[2016-10-06] VITALS (11 sets, daily range): BP systolic 116–140; BP diastolic 64–84; PULSE 73–88; RESP 18–20; Ht 157.5 cm; Wt 79.5 kg
[2016-10-06] MEDS: CEFAZOLIN 2 GM/50 ML (PMX) 50 ML IVPB SCH ×2 (07:01→14:43)
[2016-10-06 07:52] LABS: ADD SCAN DIFF NO
[2016-10-06 07:54] LABS: BASOPHILS % 0.1 % (0.0-2.0); HEMATOCRIT 36.6 % (37.0-47.0); HEMOGLOBIN 11.3 g/dl (12.0-16.0); LYMPHOCYTES # 1.2 10^3/ul (0.8-2.9); LYMPHOCYTES % 11.7 % (15.0-51.0); MEAN CORPUSCULAR HEMOGLOBIN 28.3 pg (29.0-33.0); MEAN CORPUSCULAR HGB CONC 30.9 g/dl (32.0-37.0); MEAN CORPUSCULAR VOLUME 91.7 fl (82.0-101.0); MEAN PLATELET VOLUME 10.4 fl (7.4-10.4); MONOCYTE # 0.3 10^3/ul (0.3-0.9); MONOCYTES % 2.5 % (0.0-11.0); NEUTROPHILS % 85.5 % (39.0-77.0); PLATELET COUNT 281 10^3/UL (140-415); RED BLOOD COUNT 3.99 10^6/ul (4.20-5.40); RED CELL DISTRIBUTION WIDTH 15.5 % (11.5-14.5); WHITE BLOOD COUNT 10.5 10^3/ul (4.8-10.8)
[2016-10-06 08:20] LABS: CALCIUM 9.2 mg/dl (8.4-10.2); CREATININE 0.57 mg/dl (0.44-1.00); POTASSIUM 4.7 mmol/L (3.5-5.1)
[2016-10-06] MEDS ORDERED: ACETAMINOPHEN 325 MG TAB PO PRN (08:30)
[2016-10-06] MEDS ORDERED: MAGNESIUM HYDROXIDE 30ML CUP PO PRN (08:30)
--- NOTE | 2016-10-06 08:30 | PN ---
Date/Time of Note Date/Time of Note DATE: 10/06/16 TIME: 08:27 Assessment/Plan Lines/Catheters IV Catheter Type (from Nrs): Peripheral IV Horner in Place (from Nrsg): Yes Assessment/Plan Assessment/Plan 81-year-old female s/p laparoscopic repair of incarcerated abdominal wall hernia * Clinically doing well * Labs are OK * Advance diet to clear liquids * OOB/IS/PT * D/C horner if OK with primary team * Can start prophylactic subcutaneous heparin * If remains stable can resume full anticoagulation in AM Discussed with primary care team Subjective 24 Hr Interval Summary Feeling better. Denies abdominal pain. Afebrile. Exam/Review of Systems Vital Signs Vitals Vital Signs Date Time Temp Pulse Resp B/P Pulse Ox O2 Delivery O2 Flow Rate FiO2 10/06/16 07:29 98.2 90 18 120/75 92 10/05/16 22:57 Nasal Cannula 3.0 Intake and Output 10/05/16 10/05/16 10/06/16 15:00 23:00 07:00 Intake Total 2000 ml Output Total 5 ml Balance 1995 ml Exam Free Text/Dictation GENERAL: Awake, alert, oriented 3. No acute distress. CARDIOVASCULAR: S1S2, irregularly irregular. No murmurs appreciated. RESPIRATORY: Clear to auscultation bilaterally. ABDOMEN: Obese, Soft, bowel sounds present, nondistended, minimal incisional tenderness to palpation EXTREMITIES: There is left upper extremity and left lower extremity weakness from prior CVA Results Result Diagram: 10/06/16 0700 10/05/16 1430 SULEIMAN LUI MD Oct 06, 2016 08:30
[2016-10-06] MEDS ORDERED: FAMOTIDINE 20 MG TAB PO SCH (09:00)
[2016-10-06] MEDS ORDERED: DOCUSATE SODIUM 100 MG CAP PO SCH (09:00)
[2016-10-06] MEDS: FAMOTIDINE 20 MG INJ IV SCH (09:02)
[2016-10-06] MEDS: METOPROLOL 25 MG TAB PO SCH ×2 (09:03→20:44)
[2016-10-06] MEDS: POLYETHYLENE GLYCOL 17 GM PACKET PO SCH (09:03)
--- NOTE | 2016-10-06 09:08 | HP ---
DATE OF ADMISSION: 10/05/2016 CHIEF COMPLAINT: Abdominal pain, incarcerated abdominal hernia. HISTORY OF PRESENT ILLNESS: This is an 81-year-old female with a past medical history of hypertensi on, a history of CVA with left-sided weakness, history of diverticulitis, history of coronary artery disease, history of depression, history of dyslipidemia, who presents to [facility] for evaluation of abdominal pain. The patient states the pain has been sharp and ongoing for the last 3 days. She describes it as localizing to her left lower quadrant. The patient felt this was similar to previous history of diverticulitis. She was having mild nausea, but denied any vomiting . The patient upon arrival to the emergency room had a CT scan of the abdomen and pelvis which show ed diverticulitis and left lower quadrant hernia containing a loop of bowel, surrounding edema, cons istent with incarceration, as well as a soft tissue mass in the pelvis in the posterior right acetab ulum measuring 4.7 cm. The patient was then seen by surgeon, Dr. Foster, and was taken to the operat ing room where she had a laparoscopic repair of her incarcerated abdominal hernia, and had lysis of adhesions. The patient had no intraoperative or immediate postoperative complications. She was bro ught back to telemetry. Upon my evaluation of the patient at this time, she is currently complaining of some mild lower back pain, but otherwise is stating she feels much better. She denies any hemoptysis, hemetemesis, bhavin tochezia, or any chest pain. PAST MEDICAL HISTORY: As stated above, history of hypertension, history of CVA with left-sided mann paresis, history of dyslipidemia, history of coronary artery disease, history of depression. PAST SURGICAL HISTORY: Ovarian cyst removal. ALLERGIES: NO KNOWN DRUG ALLERGIES. FAMILY HISTORY: Noncontributory. MEDICATIONS: The patient's medications have been reviewed and reconciled. REVIEW OF SYSTEMS: A 14-point review of systems was conducted. Pertinent positives stated in HPI, otherwise negative. PHYSICAL EXAMINATION: VITAL SIGNS: Blood pressure is 120/75, respiration 18, pulse 90, temperature 98.2. HEENT: Head is normocephalic. Pupils are reactive to light. NECK: Supple. HEART: Regular rate. LUNGS: Show diminished breath sounds at the base. ABDOMEN: Soft with abdominal binder. There is some mild tenderness to palpation. No rebound. EXTREMITIES: Negative for clubbing or cyanosis. No edema. DERMATOLOGIC: No rashes. MUSCULOSKELETAL: No joint effusions. NEUROLOGIC: There is noted left-sided weakness. LABORATORY DATA: Shows white count 10.5, hemoglobin , hematocrit 36.6, platelets 281,000. IMAGING STUDIES: As stated in HPI. ASSESSMENT AND PLAN: This is an 81-year-old female who presents with: 1. Incarcerated abdominal hernia. The patient is status post laparoscopic repair, status post lysi s of adhesions. The patient is postop day #1. Plan at this point is to monitor patient closely. W e will continue pain control. We will follow up with general surgeon, Dr. Foster, for further help w ith management. Keep patient n.p.o. at this time until cleared by surgery. We will monitor closely . 2. History of cerebrovascular accident with left-sided hemiparesis. The patient is currently off a nticoagulation due to recent surgery. We will continue to monitor. Once the patient has been clear ed from surgery we will resume full anticoagulation. 3. History of coronary artery disease, continue medical management. 4. Hypertension. Blood pressure is currently controlled. We will continue to monitor. We will re sume blood pressure medications once the patient is tolerating p.o. 6. History of dyslipidemia. Continue statin therapy. 7. Mild anemia. We will continue to monitor hemoglobin and hematocrit levels. No evidence of blee d. 8. Gastrointestinal and deep venous thrombosis prophylaxis. Continue Pepcid and heparin. 9. General debility. We will place a physical therapy consult for evaluation. 10. History of soft tissue mass in the right acetabulum, questionable malignancy versus benign. We will monitor. Workup can be done once the patient is clinically stable and in the outpatient [facility]. Please note, I spent 25 minutes of face to face time with the patient's son, discussing code status. The patient is FULL CODE. Dictated By: MEGAN SILVA/JOSÉ ANTONIO Conf#: [id number] DID#: [id number]
[2016-10-06] MEDS: HEPARIN 5,000 UNIT/0.5 ML VIAL SC SCH ×2 (09:09→20:48)
[2016-10-06 10:44] LABS: ALBUMIN 3.2 g/dl (3.3-4.9); BILIRUBIN,INDIRECT 0.4 mg/dl (0-1.1); BILIRUBIN,TOTAL 0.4 mg/dl (0.2-1.3)
[2016-10-06] MEDS ORDERED: VITAMIN A & D 5 GM OINT PACKET TOP ONE (11:34)
[2016-10-06 12:35] LABS: CANCER ANTIGEN 125 14.2 U/ml (0.0-35.0); CARCINOEMBRYONIC ANTIGEN 1.6 ng/ml (0.0-5.0)
[2016-10-06 12:39] LABS: CANCER ANTIGEN 19-9 3.4 U/ml (0.0-37.0)
[2016-10-06] MEDS: morphine 2 MG INJ IV PRN (15:49)
[2016-10-06] MEDS: DOCUSATE SODIUM 10 MG/ML (10ML CUP) PO SCH (20:43)
[2016-10-06] MEDS: ATORVASTATIN 80 MG TAB PO SCH (20:44)
[2016-10-06] MEDS: ESCITALOPRAM 10 MG TAB PO SCH (20:44)
--- NOTE | 2016-10-06 21:15 | CONS ---
Date/Time of Note Date/Time of Note DATE: 10/06/16 TIME: 21:11 Assessment/Plan Assessment/Plan Chief Complaint/Hosp Course ASSESSMENT AND PLAN: This is an 81-year-old female who presents with: soft tissue mass in the right acetabulum, questionable malignancy versus benign. tumor markers- neg will d/w family how aggressive we will be with w-up Mild anemia. We will continue to monitor hemoglobin and hematocrit levels. Incarcerated abdominal hernia surg eval History of cerebrovascular accident with left-sided hemiparesis. anticoagulation off for surgery. Once the patient has been cleared from surgery we will resume full anticoagulation. History of coronary artery disease, continue medical management. Hypertension. Blood pressure is currently controlled. We will continue to monitor. We will resume blood pressure medications once the patient is tolerating p.o. History of dyslipidemia. Continue statin therapy. Gastrointestinal and deep venous thrombosis prophylaxis. Continue Pepcid and heparin. General debility. We will place a physical therapy consult for evaluation. Problems: Consultation Date/Type/Reason Admit Date/Time Oct 05, 2016 at 16:59 Initial Consult Date 10/05/16 Type of Consultation: [facility] Referring Provider: MEGAN FLORES DO 24 HR Interval Summary Free Text/Dictation all noted d/w staff pt is felling better post op pain controlled tumor markers - neg Exam/Review of Systems Vital Signs Vitals Vital Signs Date Time Temp Pulse Resp B/P Pulse Ox O2 Delivery O2 Flow Rate FiO2 10/06/16 16:17 87 10/06/16 16:05 98.4 18 140/84 91 10/06/16 08:20 Nasal Cannula 2.0 Intake and Output 10/05/16 10/05/16 10/06/16 15:00 23:00 07:00 Intake Total 2000 ml Output Total 5 ml 450 ml Balance 1995 ml -450 ml Exam HEENT: Head is normocephalic. Pupils are reactive to light. NECK: Supple. HEART: Regular rate. LUNGS: Show diminished breath sounds at the base. ABDOMEN: Soft with abdominal binder. There is some mild tenderness to palpation. No rebound. EXTREMITIES: Negative for clubbing or cyanosis. No edema. DERMATOLOGIC: No rashes. MUSCULOSKELETAL: No joint effusions. NEUROLOGIC: There is noted left-sided weakness. Results Result Diagram: 10/06/16 0700 10/06/16 0700 Results 24 hrs Laboratory Tests Test 10/06/16 05:58 10/06/16 07:00 Total Bilirubin 0.4 Direct Bilirubin 0.00 Indirect Bilirubin 0.4 Aspartate Amino Transf (AST/SGOT) 22 Alanine Aminotransferase (ALT/SGPT) 29 Alkaline Phosphatase 126 H Total Protein 6.0 #L Albumin 3.2 L Carcinoembryonic Antigen 1.6 CA 19-9 Antigen 3.4 CA 125 Antigen 14.2 White Blood Count 10.5 Red Blood Count 3.99 L Hemoglobin 11.3 L Hematocrit 36.6 L Mean Corpuscular Volume 91.7 Mean Corpuscular Hemoglobin 28.3 L Mean Corpuscular Hemoglobin Concent 30.9 L Red Cell Distribution Width 15.5 H Platelet Count 281 Mean Platelet Volume 10.4 Neutrophils % 85.5 H Lymphocytes % 11.7 L Monocytes % 2.5 Eosinophils % 0.0 Basophils % 0.1 Nucleated Red Blood Cells % 0.0 Neutrophils # 9.0 H Lymphocytes # 1.2 Monocytes # 0.3 Eosinophils # 0.0 Basophils # 0.0 Nucleated Red Blood Cells # 0.0 Sodium Level 135 Potassium Level 4.7 Chloride Level 107 Carbon Dioxide Level 24 Anion Gap 9 # Blood Urea Nitrogen 16 Creatinine 0.57 Glucose Level 123 Lactic Acid Level 1.0 Calcium Level 9.2 Medications Medications Current Medications Cefazolin Sodium/ Dextrose (Ancef 2 Gm/50 ml (Pmx)) 50 ml @ 100 mls/hr Q8H IVPB Last administered on 10/06/16 14:43; Admin Dose 100 MLS/HR; Start at 21:30; Stop 10/06/16 at 21:29 Morphine Sulfate (morphine) 2 mg Q3 PRN IV PAIN LEVEL 6-10 Last administered on 10/06/16 15:49; Admin Dose 2 MG; Start 10/05/16 at 21:30 Ondansetron HCl (Zofran Inj) 4 mg Q6H PRN IV NAUSEA AND/OR VOMITING Last administered on 10/06/16 16:00; Admin Dose 4 MG; Start 10/05/16 at 21:30 Famotidine (Pepcid Iv) 20 mg Q24H IV Last administered on 10/06/16 09:02; Admin Dose 20 MG; Start 10/06/16 at 09:00 Acetaminophen (Tylenol Tab) 650 mg Q4H PRN PO FOR PAIN -11/04 Last administered on 10/06/16 20:50; Admin Dose 650 MG; Start 10/06/16 at 08:30 Atorvastatin Calcium (Lipitor) 80 mg QHS PO Last administered on 10/06/16 20: 44; Admin Dose 80 MG; Start 10/06/16 at 21:00 Escitalopram Oxalate (Lexapro) 10 mg QHS PO Last administered on 10/06/16 20: 44; Admin Dose 10 MG; Start 10/06/16 at 21:00 Magnesium Hydroxide (Milk Of Mag) 30 ml Q24H PRN PO PRN; Start 10/06/16 at 08: 30 Metoprolol Tartrate (Lopressor) 12.5 mg BID PO Last administered on 10/06/16 20:44; Admin Dose 12.5 MG; Start 10/06/16 at 09:00 Polyethylene Glycol (Miralax) 17 gm DAILY PO Last administered on 10/06/16 09: 03; Admin Dose 17 GM; Start 10/06/16 at 09:00 Heparin Sodium (Porcine) (Heparin (5000 Units/0.5 ml)) 5,000 unit BID SC Last administered on 10/06/16 20:48; Admin Dose 5,000 UNIT; Start 10/06/16 at 09:00 Docusate Sodium (Colace Liquid Cup) 100 mg BID PO Last administered on 20:43; Admin Dose 100 MG; Start 10/06/16 at 21:00 TERRA RANGEL MD Oct 06, 2016 21:14
[2016-10-06] MEDS: SOD CHLORIDE 0.9% 1,000 ML IV SCH (22:47)
[2016-10-07] VITALS (12 sets, daily range): BP systolic 124–139; BP diastolic 63–76; PULSE 72–85; RESP 18–20
[2016-10-07] MEDS ORDERED: HYDROCODONE/APAP (7.5/325) TAB PO PRN (02:30)
[2016-10-07] MEDS: morphine 2 MG INJ IV PRN ×3 (03:25→22:28)
[2016-10-07 06:59] LABS: ADD SCAN DIFF NO
[2016-10-07 07:03] LABS: BASOPHIL # 0.1 10^3/ul (0.0-0.1); BASOPHILS % 0.6 % (0.0-2.0); EOSINOPHILS # 0.1 10^3/ul (0.0-0.5); EOSINOPHILS % 0.6 % (0.0-7.0); HEMOGLOBIN 10.3 g/dl (12.0-16.0); LYMPHOCYTES # 2.2 10^3/ul (0.8-2.9); LYMPHOCYTES % 24.4 % (15.0-51.0); MEAN CORPUSCULAR HEMOGLOBIN 28.7 pg (29.0-33.0); MEAN CORPUSCULAR HGB CONC 31.2 g/dl (32.0-37.0); MEAN CORPUSCULAR VOLUME 91.9 fl (82.0-101.0); MEAN PLATELET VOLUME 10.5 fl (7.4-10.4); MONOCYTE # 0.7 10^3/ul (0.3-0.9); MONOCYTES % 7.3 % (0.0-11.0); NEUTROPHIL # 5.9 10^3/ul (1.6-7.5); NEUTROPHILS % 66.8 % (39.0-77.0); PLATELET COUNT 252 10^3/UL (140-415); RED BLOOD COUNT 3.59 10^6/ul (4.20-5.40); RED CELL DISTRIBUTION WIDTH 15.7 % (11.5-14.5); WHITE BLOOD COUNT 8.9 10^3/ul (4.8-10.8)
[2016-10-07 07:30] LABS: CALCIUM 8.7 mg/dl (8.4-10.2); CREATININE 0.63 mg/dl (0.44-1.00); PHOSPHORUS 2.5 mg/dl (2.5-4.9)
[2016-10-07] MEDS: DOCUSATE SODIUM 10 MG/ML (10ML CUP) PO SCH ×2 (08:36→20:49)
[2016-10-07] MEDS: FAMOTIDINE 20 MG INJ IV SCH (08:36)
[2016-10-07] MEDS: POLYETHYLENE GLYCOL 17 GM PACKET PO SCH (08:37)
[2016-10-07] MEDS: METOPROLOL 25 MG TAB PO SCH ×2 (08:38→20:50)
[2016-10-07] MEDS: HEPARIN 5,000 UNIT/0.5 ML VIAL SC SCH ×2 (08:48→20:54)
[2016-10-07] MEDS ORDERED: CHOLECALCIFEROL 1,000 UNIT TAB PO SCH (09:00)
[2016-10-07] MEDS ORDERED: FOLIC ACID 1 MG TAB PO SCH (09:00)
[2016-10-07] MEDS ORDERED: ASPIRIN (EC) 81 MG TAB PO SCH (09:00)
--- NOTE | 2016-10-07 09:48 | PN ---
DATE: 10/07/2016 SUBJECTIVE: The patient is stable, complaining of generalized abdominal pain, some flatulence. No o ther events noted. No hemoptysis, hematemesis or hematochezia. OBJECTIVE: VITAL SIGNS: Blood pressure 128/63, respiration 18, pulse 85, temperature 98.2. HEENT: Head is normocephalic. NECK: Supple. HEART: Regular rate. LUNGS: Show diminished breath sounds at the base. ABDOMEN: Soft, mild tenderness to palpation, laparoscopy scars are clean, dry and intact. EXTREMITIES: Negative for clubbing, cyanosis. No edema. DERMATOLOGIC: No rashes. MUSCULOSKELETAL: No joint effusions. NEUROLOGIC: No change in exam. MEDICATIONS: The patient's medications have been reviewed. LABORATORY DATA: Shows sodium 135, potassium 4.0, chloride 106, BUN 20, creatinine 0.63. White cou nt 8.9, hemoglobin 10.3, hematocrit 32.0, platelet count 252. ASSESSMENT AND PLAN: 1. Incarcerated abdominal hernia. The patient is status post laparoscopic repair, status post lysi s of adhesions. The patient is postop day #2, currently stable. Pain is well controlled. We will c ontinue to follow up recommendations by general surgeon, Dr. Foster. The patient is on clear liquid diet. We will advance as tolerated. 2. History of cerebrovascular accident with left-sided hemiparesis. The patient remains on Eliquis . We will follow up with general surgeon, if okay we will resume anticoagulation. 3. History of coronary artery disease. Continue medical regimen. 4. Hypertension. Blood pressure controlled. Continue to monitor. The patient's blood pressure me dication will resume. 5. History of dyslipidemia. Continue statin therapy. 6. Mild anemia, likely from postoperative blood loss. Continue to monitor hemoglobin and hematocrit levels, no evidence of bleed. 7. GI and deep venous thrombosis prophylaxis continue Pepcid and heparin. 8. General debility. Continue physical therapy. Consult has been placed. 9. Soft tissue mass right acetabulum, questionable malignancy. The patient has been seen by hemato logist/oncologist, Dr. Huntley will defer workup to her. Dictated By: MEGAN FLORES DO NR/NTS Conf#: [id number] DID#: [id number]
--- NOTE | 2016-10-07 13:02 | PN ---
Date/Time of Note Date/Time of Note DATE: 10/07/16 TIME: 12:58 Assessment/Plan Lines/Catheters IV Catheter Type (from Nrsg): Saline Lock Cramer in Place (from Nrsg): Yes Assessment/Plan Assessment/Plan 81-year-old female s/p laparoscopic repair of incarcerated abdominal wall hernia POD #2 * Advance to soft diet * OOB/IS/PT * Okay to restart anticoagulation * Continue medical management Subjective 24 Hr Interval Summary Complaining of some incisional pain. Cramer had to be reinserted for urinary retention. Passing flatus. Small bowel movement. Denies nausea. Tolerating clear liquids. Afebrile. Exam/Review of Systems Vital Signs Vitals Vital Signs Date Time Temp Pulse Resp B/P Pulse Ox O2 Delivery O2 Flow Rate FiO2 10/07/16 12:07 72 10/07/16 11:48 98.7 20 124/70 95 10/07/16 08:00 Nasal Cannula 2.0 Intake and Output 10/06/16 10/06/16 10/07/16 15:00 23:00 07:00 Intake Total 700 ml 600 ml Output Total 450 ml 400 ml Balance 250 ml 200 ml Exam Free Text/Dictation GENERAL: Awake, alert, oriented 3. No acute distress. CARDIOVASCULAR: S1S2, irregularly irregular. No murmurs appreciated. RESPIRATORY: Decreased air entry bilateral bases ABDOMEN: Obese, Soft, bowel sounds present, nondistended, mild incisional tenderness to palpation INCISIONS: Clean, dry, intact EXTREMITIES: There is left upper extremity and left lower extremity weakness from prior CVA Results Result Diagram: 10/07/16 0625 10/07/16 0625 SULEIMAN LUI MD Oct 07, 2016 13:02
[2016-10-07] MEDS: ATORVASTATIN 80 MG TAB PO SCH (20:49)
[2016-10-07] MEDS: ESCITALOPRAM 10 MG TAB PO SCH (20:50)
[2016-10-07] MEDS ORDERED: ATORVASTATIN 40 MG TAB PO SCH (21:00)
[2016-10-07] MEDS ORDERED: TAMSULOSIN (SR) 0.4 MG CAP PO SCH (21:00)
[2016-10-07] MEDS: SOD CHLORIDE 0.9% 1,000 ML IV SCH (22:14)
--- NOTE | 2016-10-07 23:32 | CONS ---
Date/Time of Note Date/Time of Note DATE: 10/07/16 TIME: 23:30 Assessment/Plan Assessment/Plan Chief Complaint/Hosp Course ASSESSMENT AND PLAN: This is an 81-year-old female who presents with: soft tissue mass in the right acetabulum, questionable malignancy versus benign. tumor markers- neg will d/w family how aggressive we will be with w-up CONSIDER MRI PELVIS AFTER SURGICAL RECOVERY Mild anemia. We will continue to monitor hemoglobin and hematocrit levels. Incarcerated abdominal hernia POST OP History of cerebrovascular accident with left-sided hemiparesis. anticoagulation off for surgery. Once the patient has been cleared from surgery we will resume full anticoagulation. History of coronary artery disease, continue medical management. Hypertension. Blood pressure is currently controlled. We will continue to monitor. We will resume blood pressure medications once the patient is tolerating p.o. History of dyslipidemia. Continue statin therapy. Gastrointestinal and deep venous thrombosis prophylaxis. Continue Pepcid and heparin. General debility. We will place a physical therapy consult for evaluation. Problems: Consultation Date/Type/Reason Admit Date/Time Oct 05, 2016 at 16:59 Initial Consult Date 10/05/16 Type of Consultation: [facility] Referring Provider: MEGAN FLORES DO 24 HR Interval Summary Free Text/Dictation SUBJECTIVE: The patient is stable, complaining of generalized abdominal pain, some flatulence. No other events noted. No hemoptysis, hematemesis or hematochezia. Exam/Review of Systems Vital Signs Vitals Vital Signs Date Time Temp Pulse Resp B/P Pulse Ox O2 Delivery O2 Flow Rate FiO2 10/07/16 20:30 78 10/07/16 20:13 98.8 20 139/76 90 10/07/16 20:00 Nasal Cannula 2.0 Intake and Output 10/06/16 10/06/16 10/07/16 15:00 23:00 07:00 Intake Total 700 ml 600 ml Output Total 450 ml 400 ml Balance 250 ml 200 ml Exam OBJECTIVE: HEENT: Head is normocephalic. NECK: Supple. HEART: Regular rate. LUNGS: Show diminished breath sounds at the base. ABDOMEN: Soft, mild tenderness to palpation, laparoscopy scars are clean, dry and intact. EXTREMITIES: Negative for clubbing, cyanosis. No edema. DERMATOLOGIC: No rashes. MUSCULOSKELETAL: No joint effusions. NEUROLOGIC: No change in exam. Results Result Diagram: 10/07/16 0625 10/07/16 0625 Results 24 hrs Laboratory Tests Test 10/07/16 06:25 White Blood Count 8.9 Red Blood Count 3.59 L Hemoglobin 10.3 L Hematocrit 33.0 L Mean Corpuscular Volume 91.9 Mean Corpuscular Hemoglobin 28.7 L Mean Corpuscular Hemoglobin Concent 31.2 L Red Cell Distribution Width 15.7 H Platelet Count 252 Mean Platelet Volume 10.5 H Neutrophils % 66.8 Lymphocytes % 24.4 Monocytes % 7.3 Eosinophils % 0.6 Basophils % 0.6 Nucleated Red Blood Cells % 0.0 Neutrophils # 5.9 Lymphocytes # 2.2 Monocytes # 0.7 Eosinophils # 0.1 Basophils # 0.1 Nucleated Red Blood Cells # 0.0 Sodium Level 135 Potassium Level 4.0 Chloride Level 106 Carbon Dioxide Level 29 Anion Gap 4 L Blood Urea Nitrogen 20 Creatinine 0.63 Glucose Level 95 Calcium Level 8.7 Phosphorus Level 2.5 Magnesium Level 2.0 Medications Medications Current Medications Morphine Sulfate (morphine) 2 mg Q3 PRN IV PAIN LEVEL 6-10 Last administered on 10/07/16 22:28; Admin Dose 2 MG; Start 10/05/16 at 21:30 Ondansetron HCl (Zofran Inj) 4 mg Q6H PRN IV NAUSEA AND/OR VOMITING Last administered on 10/06/16 16:00; Admin Dose 4 MG; Start 10/05/16 at 21:30 Famotidine (Pepcid Iv) 20 mg Q24H IV Last administered on 10/07/16 08:36; Admin Dose 20 MG; Start 10/06/16 at 09:00 Acetaminophen (Tylenol Tab) 650 mg Q4H PRN PO FOR PAIN 1-5/10 Last administered on 10/06/16 20:50; Admin Dose 650 MG; Start 10/06/16 at 08:30 Atorvastatin Calcium (Lipitor) 80 mg QHS PO Last administered on 10/07/16 20: 49; Admin Dose 80 MG; Start 10/06/16 at 21:00 Escitalopram Oxalate (Lexapro) 10 mg QHS PO Last administered on 10/07/16 20: 50; Admin Dose 10 MG; Start 10/06/16 at 21:00 Magnesium Hydroxide (Milk Of Mag) 30 ml Q24H PRN PO PRN Last administered on 21:15; Admin Dose 30 ML; Start 10/06/16 at 08:30 Metoprolol Tartrate (Lopressor) 12.5 mg BID PO Last administered on 10/07/16 20:50; Admin Dose 12.5 MG; Start 10/06/16 at 09:00 Polyethylene Glycol (Miralax) 17 gm DAILY PO Last administered on 10/07/16 08: 37; Admin Dose 17 GM; Start 10/06/16 at 09:00 Heparin Sodium (Porcine) (Heparin (5000 Units/0.5 ml)) 5,000 unit BID SC Last administered on 10/07/16 20:54; Admin Dose 5,000 UNIT; Start 10/06/16 at 09:00 Docusate Sodium 100 mg 100 mg BID PO Last administered on 10/07/16 20:49; Admin Dose 100 MG; Start 10/06/16 at 21:00 Sodium Chloride (NS) 1,000 ml @ 40 mls/hr Q24H IV Last administered on 22:14; Admin Dose 40 MLS/HR; Start 10/06/16 at 23:00 Simethicone (Mylicon) 80 mg Q6H PRN PO DISTENSION/GAS/BLOATING Last administered on 10/07/16 22:15; Admin Dose 80 MG; Start 10/07/16 at 16:00 TERRA RANGEL MD Oct 07, 2016 23:31
[2016-10-08] VITALS (12 sets, daily range): BP systolic 132–177; BP diastolic 67–95; PULSE 75–90; RESP 18–20
[2016-10-08 07:23] LABS: ADD SCAN DIFF NO
[2016-10-08 07:25] LABS: BASOPHILS % 0.4 % (0.0-2.0); EOSINOPHILS # 0.1 10^3/ul (0.0-0.5); HEMATOCRIT 31.4 % (37.0-47.0); HEMOGLOBIN 10.1 g/dl (12.0-16.0); LYMPHOCYTES # 1.6 10^3/ul (0.8-2.9); LYMPHOCYTES % 22.1 % (15.0-51.0); MEAN CORPUSCULAR HGB CONC 32.2 g/dl (32.0-37.0); MEAN CORPUSCULAR VOLUME 90.2 fl (82.0-101.0); MEAN PLATELET VOLUME 10.5 fl (7.4-10.4); MONOCYTE # 0.5 10^3/ul (0.3-0.9); MONOCYTES % 7.6 % (0.0-11.0); NEUTROPHIL # 4.9 10^3/ul (1.6-7.5); NEUTROPHILS % 68.6 % (39.0-77.0); PLATELET COUNT 234 10^3/UL (140-415); RED BLOOD COUNT 3.48 10^6/ul (4.20-5.40); RED CELL DISTRIBUTION WIDTH 15.4 % (11.5-14.5); WHITE BLOOD COUNT 7.1 10^3/ul (4.8-10.8)
[2016-10-08] MEDS: HEPARIN 5,000 UNIT/0.5 ML VIAL SC SCH (08:12)
[2016-10-08] MEDS: POLYETHYLENE GLYCOL 17 GM PACKET PO SCH (08:13)
[2016-10-08] MEDS: FAMOTIDINE 20 MG INJ IV SCH (08:13)
[2016-10-08] MEDS: DOCUSATE SODIUM 10 MG/ML (10ML CUP) PO SCH ×2 (08:13→21:00)
[2016-10-08] MEDS: METOPROLOL 25 MG TAB PO SCH ×2 (08:14→21:01)
[2016-10-08 08:37] LABS: CALCIUM 8.2 mg/dl (8.4-10.2); CREATININE 0.54 mg/dl (0.44-1.00); PHOSPHORUS 2.2 mg/dl (2.5-4.9); POTASSIUM 3.7 mmol/L (3.5-5.1)
--- NOTE | 2016-10-08 09:47 | PN ---
DATE: 10/08/2016 SUBJECTIVE: Patient stable, no acute events overnight. No fevers, chills, nausea, vomiting, no malvin rtness of breath. The patient is tolerating p.o.s. No other events noted. OBJECTIVE: VITAL SIGNS: Blood pressure 177/95, respiration 19, pulse 87, temperature 98.1. HEENT: Head is normocephalic. NECK: Supple. HEART: Regular rate. LUNGS: Show diminished breath sounds at the base. ABDOMEN: Soft, nontender to palpation without rebound or guarding. EXTREMITIES: Negative for clubbing, cyanosis. No edema. DERMATOLOGIC: No rashes. MUSCULOSKELETAL: No joint effusions. NEUROLOGIC: No change in exam. MEDICATIONS: Reviewed. LABORATORY DATA: Showed sodium 134, potassium 3.7, BUN 15, creatinine 0.54, phosphorus 2.2. White count 7.1, hemoglobin 10.1, hematocrit 31.4, platelet count 234. ASSESSMENT AND PLAN: 1. Incarcerated abdominal hernia. The patient is status post laparoscopic repair, status post lysi s of adhesions. The patient is postop day #3. Currently stable. Continue pain control. The patien t is tolerating p.o.s. 2. History of cerebrovascular accident with left-sided hemiparesis. Will resume Eliquis. 3. History of coronary artery disease. Continue medical management. 4. Hypertension. Continue current blood pressure regimen. Adjust medications as needed. 5. Dyslipidemia. Continue statin therapy. 6. Mild anemia. Continue to monitor hemoglobin and hematocrit levels, no evidence of bleed. 7. General debility. Continue physical therapy. 8. Soft tissue mass, right acetabulum, questionable malignancy, will defer to hematology for evalua tion. 9. General debility. Continue physical therapy. Dictated By: MEGAN SILVA/NTS Conf#: [id number] DID#: [id number]
[2016-10-08] MEDS: APIXABAN 5 MG TABLET PO SCH ×2 (10:12→21:00)
[2016-10-08] MEDS ORDERED: NEUTRA-PHOS 250 MG PACKET PO ONE (10:30)
--- NOTE | 2016-10-08 18:33 | PN ---
Date/Time of Note Date/Time of Note DATE: 10/08/16 TIME: 18:31 Assessment/Plan Lines/Catheters IV Catheter Type (from Nrs): Saline Lock Cramer in Place (from Nrs): No Assessment/Plan Assessment/Plan 81-year-old female s/p laparoscopic repair of incarcerated abdominal wall hernia POD #3 * Continue current management * Surgically stable for discharge to rehabilitation once medically clear Subjective 24 Hr Interval Summary Doing well. Up in chair. Denies abdominal pain. Tolerating diet. BM x 2 today. Afebrile. Exam/Review of Systems Vital Signs Vitals Vital Signs Date Time Temp Pulse Resp B/P Pulse Ox O2 Delivery O2 Flow Rate FiO2 10/08/16 16:33 90 10/08/16 15:29 98.2 18 158/75 96 10/08/16 03:10 21 10/07/16 20:00 Nasal Cannula 2.0 Intake and Output 10/07/16 10/07/16 10/08/16 15:00 23:00 07:00 Intake Total 750 ml 680 ml Output Total 300 ml 600 ml Balance 450 ml 80 ml Exam Free Text/Dictation GENERAL: Awake, alert, oriented 3. No acute distress. CARDIOVASCULAR: S1S2, irregularly irregular. No murmurs appreciated. RESPIRATORY: Decreased air entry bilateral bases ABDOMEN: Obese, Soft, bowel sounds present, nondistended, nontender to palpation INCISIONS: Clean, dry, intact EXTREMITIES: There is left upper extremity and left lower extremity weakness from prior CVA Results Result Diagram: 10/08/16 0635 10/08/16 0635 SULEIMAN LUI MD Oct 08, 2016 18:33
--- NOTE | 2016-10-08 19:30 | CONS ---
Date/Time of Note Date/Time of Note DATE: 10/08/16 TIME: 19:30 Assessment/Plan Assessment/Plan Chief Complaint/Hosp Course ASSESSMENT AND PLAN: This is an 81-year-old female who presents with: soft tissue mass in the right acetabulum, questionable malignancy versus benign. tumor markers- neg will d/w family how aggressive we will be with w-up CONSIDER MRI PELVIS AFTER SURGICAL RECOVERY Mild anemia. We will continue to monitor hemoglobin and hematocrit levels. Incarcerated abdominal hernia POST OP History of cerebrovascular accident with left-sided hemiparesis. resumed full anticoagulation. History of coronary artery disease, continue medical management. Hypertension. Blood pressure is currently controlled. We will continue to monitor. We will resume blood pressure medications once the patient is tolerating p.o. History of dyslipidemia. Continue statin therapy. Gastrointestinal and deep venous thrombosis prophylaxis. Continue Pepcid and heparin. General debility. CONT PT Problems: Consultation Date/Type/Reason Admit Date/Time Oct 05, 2016 at 16:59 Initial Consult Date 10/05/16 Type of Consultation: [facility] Referring Provider: MEGAN FLORES DO 24 HR Interval Summary Free Text/Dictation Patient stable, no acute events overnight. No fevers, chills, nausea, vomiting , no shortness of breath. The patient is tolerating p.o.s. No other events noted. ALL NOTED IMPROVING Exam/Review of Systems Vital Signs Vitals Vital Signs Date Time Temp Pulse Resp B/P Pulse Ox O2 Delivery O2 Flow Rate FiO2 10/08/16 16:33 90 10/08/16 15:29 98.2 18 158/75 96 10/08/16 03:10 21 10/07/16 20:00 Nasal Cannula 2.0 Intake and Output 10/07/16 10/07/16 10/08/16 14:59 22:59 06:59 Intake Total 750 ml 680 ml Output Total 300 ml 600 ml Balance 450 ml 80 ml Exam OBJECTIVE: HEENT: Head is normocephalic. NECK: Supple. HEART: Regular rate. LUNGS: Show diminished breath sounds at the base. ABDOMEN: Soft, nontender to palpation without rebound or guarding. EXTREMITIES: Negative for clubbing, cyanosis. No edema. DERMATOLOGIC: No rashes. MUSCULOSKELETAL: No joint effusions. NEUROLOGIC: No change in exam. Results Result Diagram: 10/08/16 0635 4/13/17 0635 Results 24 hrs Laboratory Tests Test 10/08/16 06:35 White Blood Count 7.1 # Red Blood Count 3.48 L Hemoglobin 10.1 L Hematocrit 31.4 L Mean Corpuscular Volume 90.2 Mean Corpuscular Hemoglobin 29.0 Mean Corpuscular Hemoglobin Concent 32.2 Red Cell Distribution Width 15.4 H Platelet Count 234 Mean Platelet Volume 10.5 H Neutrophils % 68.6 Lymphocytes % 22.1 Monocytes % 7.6 Eosinophils % 1.0 Basophils % 0.4 Nucleated Red Blood Cells % 0.0 Neutrophils # 4.9 Lymphocytes # 1.6 Monocytes # 0.5 Eosinophils # 0.1 Basophils # 0.0 Nucleated Red Blood Cells # 0.0 Sodium Level 134 L Potassium Level 3.7 Chloride Level 104 Carbon Dioxide Level 26 Anion Gap 8 Blood Urea Nitrogen 15 Creatinine 0.54 Glucose Level 95 Calcium Level 8.2 L Phosphorus Level 2.2 L Magnesium Level 2.0 Medications Medications Current Medications Morphine Sulfate (morphine) 2 mg Q3 PRN IV PAIN LEVEL 6-10 Last administered on 10/07/16 22:28; Admin Dose 2 MG; Start 10/05/16 at 21:30 Ondansetron HCl (Zofran Inj) 4 mg Q6H PRN IV NAUSEA AND/OR VOMITING Last administered on 10/06/16 16:00; Admin Dose 4 MG; Start 10/05/16 at 21:30 Famotidine (Pepcid Iv) 20 mg Q24H IV Last administered on 10/08/16 08:13; Admin Dose 20 MG; Start 10/06/16 at 09:00 Acetaminophen (Tylenol Tab) 650 mg Q4H PRN PO FOR PAIN 1-5/10 Last administered on 10/06/16 20:50; Admin Dose 650 MG; Start 10/06/16 at 08:30 Atorvastatin Calcium (Lipitor) 80 mg QHS PO Last administered on 10/07/16 20: 49; Admin Dose 80 MG; Start 10/06/16 at 21:00 Escitalopram Oxalate (Lexapro) 10 mg QHS PO Last administered on 10/07/16 20: 50; Admin Dose 10 MG; Start 10/06/16 at 21:00 Magnesium Hydroxide (Milk Of Mag) 30 ml Q24H PRN PO PRN Last administered on 21:15; Admin Dose 30 ML; Start 10/06/16 at 08:30 Metoprolol Tartrate (Lopressor) 12.5 mg BID PO Last administered on 10/08/16 08:14; Admin Dose 12.5 MG; Start 10/06/16 at 09:00 Polyethylene Glycol (Miralax) 17 gm DAILY PO Last administered on 10/07/16 08: 37; Admin Dose 17 GM; Start 10/06/16 at 09:00 Docusate Sodium (Colace Liquid Cup) 100 mg BID PO Last administered on 20:49; Admin Dose 100 MG; Start 10/06/16 at 21:00 Simethicone (Mylicon) 80 mg Q6H PRN PO DISTENSION/GAS/BLOATING Last administered on 10/08/16 09:08; Admin Dose 80 MG; Start 10/07/16 at 16:00 Apixaban (Eliquis) 5 mg BID PO Last administered on 10/08/16 10:12; Admin Dose 5 MG; Start 10/08/16 at 09:30 TERRA RANGEL MD Oct 08, 2016 19:30
[2016-10-08] MEDS: morphine 2 MG INJ IV PRN (20:58)
[2016-10-08] MEDS: ESCITALOPRAM 10 MG TAB PO SCH (20:59)
[2016-10-08] MEDS: ATORVASTATIN 80 MG TAB PO SCH (21:00)
[2016-10-09 01:03] VITALS: BP 144/86; RESP 20
[2016-10-09 07:11] LABS: ADD SCAN DIFF NO
[2016-10-09 07:20] VITALS: BP 153/82; RESP 18
[2016-10-09 07:23] LABS: BASOPHILS % 0.5 % (0.0-2.0); EOSINOPHILS # 0.1 10^3/ul (0.0-0.5); EOSINOPHILS % 1.5 % (0.0-7.0); HEMATOCRIT 33.4 % (37.0-47.0); LYMPHOCYTES # 2.4 10^3/ul (0.8-2.9); LYMPHOCYTES % 31.3 % (15.0-51.0); MEAN CORPUSCULAR HEMOGLOBIN 29.2 pg (29.0-33.0); MEAN CORPUSCULAR HGB CONC 32.9 g/dl (32.0-37.0); MEAN CORPUSCULAR VOLUME 88.6 fl (82.0-101.0); MEAN PLATELET VOLUME 10.8 fl (7.4-10.4); MONOCYTE # 0.5 10^3/ul (0.3-0.9); MONOCYTES % 6.9 % (0.0-11.0); NEUTROPHIL # 4.5 10^3/ul (1.6-7.5); NEUTROPHILS % 59.3 % (39.0-77.0); PLATELET COUNT 266 10^3/UL (140-415); RED BLOOD COUNT 3.77 10^6/ul (4.20-5.40); RED CELL DISTRIBUTION WIDTH 14.9 % (11.5-14.5); WHITE BLOOD COUNT 7.5 10^3/ul (4.8-10.8)
[2016-10-09 07:57] LABS: CALCIUM 8.7 mg/dl (8.4-10.2); CREATININE 0.53 mg/dl (0.44-1.00); PHOSPHORUS 2.5 mg/dl (2.5-4.9); POTASSIUM 3.6 mmol/L (3.5-5.1)
[2016-10-09] MEDS: APIXABAN 5 MG TABLET PO SCH (08:23)
[2016-10-09] MEDS: METOPROLOL 25 MG TAB PO SCH (08:24)
[2016-10-09] MEDS: FAMOTIDINE 20 MG INJ IV SCH (08:24)
[2016-10-09] MEDS: POLYETHYLENE GLYCOL 17 GM PACKET PO SCH (09:00)
[2016-10-09] MEDS: DOCUSATE SODIUM 10 MG/ML (10ML CUP) PO SCH (09:00)
[2016-10-09 10:15] VITALS: BP 138/80; PULSE 70
--- NOTE | 2016-10-09 11:21 | CONS ---
Date/Time of Note Date/Time of Note DATE: 10/09/16 TIME: 11:21 Assessment/Plan Assessment/Plan Chief Complaint/Hosp Course ASSESSMENT AND PLAN: This is an 81-year-old female who presents with: soft tissue mass in the right acetabulum, questionable malignancy versus benign. tumor markers- neg will d/w family how aggressive we will be with w-up CONSIDER MRI PELVIS AFTER SURGICAL RECOVERY Mild anemia. We will continue to monitor hemoglobin and hematocrit levels. Incarcerated abdominal hernia POST OP History of cerebrovascular accident with left-sided hemiparesis. resumed full anticoagulation. History of coronary artery disease, continue medical management. Hypertension. Blood pressure is currently controlled. We will continue to monitor. We will resume blood pressure medications once the patient is tolerating p.o. History of dyslipidemia. Continue statin therapy. Gastrointestinal and deep venous thrombosis prophylaxis. Continue Pepcid and heparin. General debility. CONT PT Problems: Consultation Date/Type/Reason Admit Date/Time Oct 05, 2016 at 16:59 Initial Consult Date 10/05/16 [facility] Referring Provider: MEGAN FLORES DO 24 HR Interval Summary Free Text/Dictation IMPROVING Exam/Review of Systems Vital Signs Vitals Vital Signs Date Time Temp Pulse Resp B/P Pulse Ox O2 Delivery O2 Flow Rate FiO2 10/09/16 10:15 70 138/80 10/09/16 07:20 98.1 18 98 10/08/16 03:10 21 10/07/16 20:00 Nasal Cannula 2.0 Intake and Output 10/08/16 10/08/16 10/09/16 15:00 23:00 07:00 Intake Total 1010 ml 250 ml Balance 1010 ml 250 ml Exam HEENT: Head is normocephalic. NECK: Supple. HEART: Regular rate. LUNGS: Show diminished breath sounds at the base. ABDOMEN: Soft, nontender to palpation without rebound or guarding. EXTREMITIES: Negative for clubbing, cyanosis. No edema. DERMATOLOGIC: No rashes. MUSCULOSKELETAL: No joint effusions. NEUROLOGIC: No change in exam. Results Result Diagram: 10/09/16 0622 10/09/16 0622 Results 24 hrs Laboratory Tests Test 10/09/16 06:22 White Blood Count 7.5 Red Blood Count 3.77 L Hemoglobin 11.0 L Hematocrit 33.4 L Mean Corpuscular Volume 88.6 Mean Corpuscular Hemoglobin 29.2 Mean Corpuscular Hemoglobin Concent 32.9 Red Cell Distribution Width 14.9 H Platelet Count 266 Mean Platelet Volume 10.8 H Neutrophils % 59.3 Lymphocytes % 31.3 Monocytes % 6.9 Eosinophils % 1.5 Basophils % 0.5 Nucleated Red Blood Cells % 0.0 Neutrophils # 4.5 Lymphocytes # 2.4 Monocytes # 0.5 Eosinophils # 0.1 Basophils # 0.0 Nucleated Red Blood Cells # 0.0 Sodium Level 135 Potassium Level 3.6 Chloride Level 104 Carbon Dioxide Level 28 Anion Gap 7 L Blood Urea Nitrogen 10 Creatinine 0.53 Glucose Level 100 Calcium Level 8.7 Phosphorus Level 2.5 Magnesium Level 2.0 Medications Medications Current Medications Morphine Sulfate (morphine) 2 mg Q3 PRN IV PAIN LEVEL 6-10 Last administered on 10/08/16 20:58; Admin Dose 2 MG; Start 10/05/16 at 21:30 Ondansetron HCl (Zofran Inj) 4 mg Q6H PRN IV NAUSEA AND/OR VOMITING Last administered on 10/06/16 16:00; Admin Dose 4 MG; Start 10/05/16 at 21:30 Famotidine (Pepcid Iv) 20 mg Q24H IV Last administered on 10/09/16 08:24; Admin Dose 20 MG; Start 10/06/16 at 09:00 Acetaminophen (Tylenol Tab) 650 mg Q4H PRN PO FOR PAIN 1-5 Last administered on 10/06/16 20:50; Admin Dose 650 MG; Start 10/06/16 at 08:30 Atorvastatin Calcium (Lipitor) 80 mg QHS PO Last administered on 10/08/16 21: 00; Admin Dose 80 MG; Start 10/06/16 at 21:00 Escitalopram Oxalate (Lexapro) 10 mg QHS PO Last administered on 10/08/16 20: 59; Admin Dose 10 MG; Start 10/06/16 at 21:00 Magnesium Hydroxide (Milk Of Mag) 30 ml Q24H PRN PO PRN Last administered on 21:15; Admin Dose 30 ML; Start 10/06/16 at 08:30 Metoprolol Tartrate (Lopressor) 12.5 mg BID PO Last administered on 10/09/16 08:24; Admin Dose 12.5 MG; Start 10/06/16 at 09:00 Polyethylene Glycol (Miralax) 17 gm DAILY PO Last administered on 10/07/16 08: 37; Admin Dose 17 GM; Start 10/06/16 at 09:00 Docusate Sodium (Colace Liquid Cup) 100 mg BID PO Last administered on 20:49; Admin Dose 100 MG; Start 10/06/16 at 21:00 Simethicone (Mylicon) 80 mg Q6H PRN PO DISTENSION/GAS/BLOATING Last administered on 10/09/16 08:24; Admin Dose 80 MG; Start 10/07/16 at 16:00 Apixaban (Eliquis) 5 mg BID PO Last administered on 10/09/16 08:23; Admin Dose 5 MG; Start 10/08/16 at 09:30 TERRA RANGEL MD Oct 09, 2016 11:21
--- NOTE | 2016-10-09 11:58 | PN ---
DATE: 10/09/2016 SUBJECTIVE: The patient is stable. The patient did have an episode of loose stool. No other event s noted. No hemoptysis, hematemesis, or hematochezia. OBJECTIVE: VITAL SIGNS: Blood pressure 138/80, respirations 18, pulse 73, temperature 98.1. HEENT: Head is normocephalic. NECK: Supple. HEART: Regular rate. LUNGS: Show diminished breath sounds at the base. ABDOMEN: Soft, nontender to palpation, no rebound or guarding. EXTREMITIES: Negative for clubbing, cyanosis, no edema. DERMATOLOGIC: No rashes. MUSCULOSKELETAL: No joint effusions. NEUROLOGIC: No change in exam. MEDICATIONS: The patient's medications have been reviewed. LABORATORY DATA: Shows a white count 7.5, hemoglobin 11.0, hematocrit 33.4, platelet count 266. So dium 135, potassium 3.6, BUN 10, creatinine 0.53. ASSESSMENT AND PLAN: 1. Incarcerated abdominal hernia. The patient is status post laparoscopic repair, status post lysi s of adhesions. The patient is postop day #4, currently stable. Continue supportive care. 2. History of cerebrovascular accident with left-sided hemiparesis. The patient was resumed on [place]se. Continue medical management. 3. History of coronary artery disease. Continue medical management. 4. Hypertension. Continue current blood pressure regimen. 5. Dyslipidemia. Continue statin therapy. 6. Anemia. Continue to monitor hemoglobin and hematocrit levels. 7. Soft tissue mass, right acetabulum, questionable malignancy. Etiology is unclear, defer to bhavin tology for evaluation. 8. General debility. Continue physical therapy. DISPOSITION: The patient is pending possible transfer to acute rehab if okay with family. Otherwis e, the patient may be discharged back to her [facility]. Dictated By: MEGAN SILVA/JOSÉ ANTONIO Conf#: [id number] DID#: [id number]
== END 2016-10-09 16:03 | DRG 354 ==
LOC: E/R 14:03 → MS1 16:59 → TEL 10-06 00:03 → PP2 10-09 00:26
PROVIDERS: ADMIT Internal Medicine; ATTEND Internal Medicine
PROC: 0WUF4JZ Supplement Abdominal Wall with Synthetic Substitute, Percutaneous Endoscopic Approach (ICD-10-PCS; principal; 2016-10-05 19:30)
DX: K43.6 Other and unspecified ventral hernia with obstruction, without gangrene (principal); I69.354 Hemiplegia and hemiparesis following cerebral infarction affecting left non-dominant side; D64.9 Anemia, unspecified; R19.09 Other intra-abdominal and pelvic swelling, mass and lump; I10 Essential (primary) hypertension; E78.5 Hyperlipidemia, unspecified; R33.9 Retention of urine, unspecified
CPT/HCPCS: 74176; 80048; 80053; 80076; 81001; 81003; 82378; 83605; 83690; 83735; 84100; 85025; 86301; 86304; 86900; 86901; 87081; 96361; 96374; 96375; 96376; 97116; 97162; 97530; J0360; J0690; J1100; J1170; J1644; J2270; J2405; J2710; J3010; J7030

== ENCOUNTER 2016-10-09 16:20 | Inpatient (IN) | payer MEDICARE, OTHER ==
[~2016-10-09] VITALS: Ht 167.6 cm; Wt 84.8 kg
[2016-10-09 16:20] VITALS: BP 164/74; PULSE 92; RESP 20; Ht 167.6 cm; Wt 84.8 kg
[~2016-10-09 16:20] MED LIST: ACET325T45 PO; APIX5TAB PO; ATOR80TA75 PO; BISA10SU75 PR; DOCU-144 PO; ESCI10TA PO; FAMO-18 PO; FLEETPED PR; LACT-9 PO; LISI-313 PO; MAGN1TAB PO; MAGN400O4 PO; METO-448 PO; MULT-105 PO; POLY17PO6 PO; SIME125T PO; TEMA15CA PO
[2016-10-09] MEDS ORDERED: LACTULOSE 30ML CUP PO PRN (19:30)
[2016-10-09] MEDS ORDERED: MAGNESIUM HYDROXIDE 30ML CUP PO PRN ×2 (19:30)
[2016-10-09] MEDS ORDERED: ACETAMINOPHEN 325 MG TAB PO PRN (19:30)
[2016-10-09] MEDS ORDERED: BISACODYL 10 MG SUPP PR PRN (19:30)
[2016-10-09] MEDS: DOCUSATE SODIUM 10 MG/ML (10ML CUP) PO SCH (20:04)
[2016-10-09] MEDS: ATORVASTATIN 80 MG TAB PO SCH (20:04)
[2016-10-09 20:05] VITALS: BP 139/84; RESP 18
[2016-10-09] MEDS: ESCITALOPRAM 10 MG TAB PO SCH (20:05)
[2016-10-09] MEDS: SENNA TAB PO SCH (20:05)
[2016-10-09] MEDS: METOPROLOL 25 MG TAB PO SCH (20:25)
[2016-10-09] MEDS: APIXABAN 5 MG TABLET PO SCH (21:09)
[2016-10-10] MEDS: AL HYDROX/MG TRISILICATE TAB PO PRN (03:47)
[2016-10-10 07:18] LABS: ADD SCAN DIFF NO
[2016-10-10 07:31] LABS: BASOPHILS % 0.4 % (0.0-2.0); EOSINOPHILS # 0.1 10^3/ul (0.0-0.5); EOSINOPHILS % 1.8 % (0.0-7.0); HEMATOCRIT 36.1 % (37.0-47.0); HEMOGLOBIN 11.8 g/dl (12.0-16.0); LYMPHOCYTES # 2.3 10^3/ul (0.8-2.9); MEAN CORPUSCULAR HGB CONC 32.7 g/dl (32.0-37.0); MEAN CORPUSCULAR VOLUME 88.7 fl (82.0-101.0); MEAN PLATELET VOLUME 10.2 fl (7.4-10.4); MONOCYTE # 0.5 10^3/ul (0.3-0.9); MONOCYTES % 6.8 % (0.0-11.0); NEUTROPHIL # 4.6 10^3/ul (1.6-7.5); NEUTROPHILS % 60.7 % (39.0-77.0); PLATELET COUNT 296 10^3/UL (140-415); RED BLOOD COUNT 4.07 10^6/ul (4.20-5.40); RED CELL DISTRIBUTION WIDTH 15.1 % (11.5-14.5); WHITE BLOOD COUNT 7.6 10^3/ul (4.8-10.8)
[2016-10-10 07:44] LABS: ALBUMIN 3.3 g/dl (3.3-4.9)
[2016-10-10 07:45] LABS: POTASSIUM 3.6 mmol/L (3.5-5.1)
[2016-10-10 07:47] LABS: BILIRUBIN,INDIRECT 0.6 mg/dl (0-1.1); BILIRUBIN,TOTAL 0.6 mg/dl (0.2-1.3); CREATININE 0.55 mg/dl (0.44-1.00)
[2016-10-10 07:48] LABS: CALCIUM 9.3 mg/dl (8.4-10.2); TOTAL PROTEIN 6.6 g/dl (6.1-8.1)
[2016-10-10] MEDS: DOCUSATE SODIUM 10 MG/ML (10ML CUP) PO SCH ×2 (08:09→20:28)
[2016-10-10] MEDS: APIXABAN 5 MG TABLET PO SCH ×2 (08:09→20:27)
[2016-10-10] MEDS: POLYETHYLENE GLYCOL 17 GM PACKET PO SCH (08:09)
[2016-10-10] MEDS: MULTIVITAMINS/MINERALS TAB PO SCH (08:11)
[2016-10-10] MEDS: LISINOPRIL 5 MG TAB PO SCH (08:11)
[2016-10-10] MEDS: FAMOTIDINE 20 MG TAB PO SCH (08:11)
[2016-10-10] MEDS: METOPROLOL 25 MG TAB PO SCH ×2 (08:11→20:24)
[2016-10-10 08:33] VITALS: BP 138/78; RESP 18
--- NOTE | 2016-10-10 09:27 | CONS ---
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 ACTIVE COMORBIDITIES: 1. Dysphagia. 2. Status post laparoscopic repair of abdominal hernia. 3. Coronary artery disease. 4. Hypertension. 5. Dyslipidemia. 6. Soft tissue mass in the right acetabulum. 7. Impairments in self-care, mobility and cognition. HISTORY OF PRESENT ILLNESS: The patient is a pleasant 81-year-old female with a history of multipl e medical comorbidities, who had a recent CVA with left-sided weakness. The patient was [facility] a prison facility for [facility]itative care; however, was noted to have increasing abdomi nal pain and was brought to the acute hospital, where she was noted to have an incarcerated hernia, as well as a soft tissue mass in the right acetabulum. The patient underwent laparoscopic repair of the hernia. The patient is now with significant impairments in self-care and mobility as compared to baseline, and has been cleared to transfer to the rehabilitation unit for comprehensive interdisc iplinary rehab care. FUNCTIONAL HISTORY: Prior to recent events she was independent in self-care tasks and mobility. Cu rrently she requires moderate assist for self-care and mobility tasks. SOCIAL HISTORY: The patient reportedly has a supportive family who is looking to have her return h ome with supervision. PAST MEDICAL HISTORY: 1. Hypertension. 2. History of diverticulitis. 3. History of coronary artery disease. 4. History of depression. 5. Dyslipidemia. CURRENT MEDICATIONS: 1. Lisinopril 5 mg p.o. daily. 2. Gaviscon ES p.o. t.i.d. 3. Temazepam 50 mg p.o. at bedtime p.r.n. 4. Eliquis 5 mg p.o. b.i.d. 5. Lipitor 80 mg p.o. at bedtime. 6. Lexapro 10 mg p.o. at bedtime. 7. Lopressor 12.5 mg p.o. b.i.d. 8. MiraLax p.r.n. 9. Mylicon p.r.n. ALLERGIES: PATIENT WITH NO KNOWN DRUG ALLERGIES. PHYSICAL EXAMINATION: VITAL SIGNS: The patient is currently afebrile, with stable vital signs. HEENT: Extraocular motions are intact. Oropharynx is clear. NECK: Supple. LUNGS: Clear anteriorly. CARDIAC: S1, S2. ABDOMEN: Soft, nontender, positive bowel sounds. NEUROLOGIC: She is awake and alert. She is oriented to person and hospital. She will follow simpl e 1-step commands. She demonstrates good strength in the right upper and lower extremities. She aponte s a flaccid left upper extremity. She has antigravity strength in the left lower extremity. PLAN: The patient has been admitted for comprehensive interdisciplinary acute rehab and is anticipa hailee to tolerate 3 hours of daily therapy in divided doses for at least 5/7 days a week. Treatment p trevor will include: 1. Physical therapy to focus on bed mobility, transfers, and household ambulation, with the goal of having the patient reach a standby assist level. 2. Occupational therapy to focus on hygiene, grooming, dressing, bathing, and toileting activities, with the goal of having the patient reach a standby assist level. 3. Rehabilitation nursing for carryover of therapeutic interventions, with the goal of continent of bowel and bladder and the goal of pain adequately managed on oral medications. 4. Speech therapy for full dysphagia management, in addition to cognitive evaluation, with the goal of having the patient return to baseline cognition and meet nutritional needs by mouth. ESTIMATED LENGTH OF STAY: 14 days. DISPOSITION GOAL: Home. REHABILITATION BARRIER: Abdominal pain. INTERVENTION FOR BARRIER: Close medical followup. I acknowledge that I performed a full physical examination on this patient within 24 hours of admiss ion to the rehabilitation unit and believe the patient is a good candidate for comprehensive interdi sciplinary rehab care and is anticipated to make reasonable goals in a reasonable period of time, as outlined above. Dictated By: FARIDEH FREEMAN/JOSÉ ANTONIO Conf#: [id number] DID#: [id number]
--- NOTE | 2016-10-10 10:45 | CONS ---
Date/Time of Note Date/Time of Note DATE: 10/10/16 TIME: 10:43 Assessment/Plan Assessment/Plan Chief Complaint/Hosp Course This is an 81-year-old female who presents with: soft tissue mass in the right acetabulum, questionable malignancy versus benign. tumor markers- neg will d/w family how aggressive we will be with w-up CONSIDER MRI PELVIS AFTER SURGICAL RECOVERY Mild anemia. We will continue to monitor hemoglobin and hematocrit levels. Incarcerated abdominal hernia POST OP History of cerebrovascular accident with left-sided hemiparesis. resumed full anticoagulation. History of coronary artery disease, continue medical management. Hypertension. Blood pressure is currently controlled. We will continue to monitor. We will resume blood pressure medications once the patient is tolerating p.o. History of dyslipidemia. Continue statin therapy. Gastrointestinal and deep venous thrombosis prophylaxis. Continue Pepcid and heparin. General debility. CONT PT Problems: Consultation Date/Type/Reason Admit Date/Time Oct 09, 2016 at 16:20 Date of Consultation: Oct 10, 2016 Type of Consultation: 10.10.16 Referring Provider: MEGAN FLORES DO Hx of Present Illness The patient is a pleasant 81-year-old female with a history of multiple medical comorbidities, who had a recent CVA with left-sided weakness. The patient was transferred [place] [facility] facility for rehabilitative care; however, was noted to have increasing abdominal pain and was brought to the acute hospital, where she was noted to have an incarcerated hernia, as well as a soft tissue mass in the right acetabulum. The patient underwent laparoscopic repair of the hernia. The patient is now with significant impairments in self- care and mobility as compared to baseline, and has been cleared to transfer to the rehabilitation unit for comprehensive interdisciplinary rehab care. FUNCTIONAL HISTORY: Prior to recent events she was independent in self-care tasks and mobility. Currently she requires moderate assist for self-care and mobility tasks. SOCIAL HISTORY: The patient reportedly has a supportive family who is looking to have her return home with supervision. PAST MEDICAL HISTORY: 1. Hypertension. 2. History of diverticulitis. 3. History of coronary artery disease. 4. History of depression. 5. Dyslipidemia. CURRENT MEDICATIONS: 1. Lisinopril 5 mg p.o. daily. 2. Gaviscon ES p.o. t.i.d. 3. Temazepam 50 mg p.o. at bedtime p.r.n. 4. Eliquis 5 mg p.o. b.i.d. 5. Lipitor 80 mg p.o. at bedtime. 6. Lexapro 10 mg p.o. at bedtime. 7. Lopressor 12.5 mg p.o. b.i.d. 8. MiraLax p.r.n. 9. Mylicon p.r.n. ALLERGIES: PATIENT WITH NO KNOWN DRUG ALLERGIES. Past Surgical History Past Surgical Hx: no surgical history Social History Smoking Status: Never smoker Exam/Review of Systems Vital Signs Vitals Vital Signs Date Time Temp Pulse Resp B/P Pulse Ox O2 Delivery O2 Flow Rate FiO2 10/10/16 08:33 97.7 83 18 138/78 97 10/09/16 16:20 Room Air Intake and Output 10/09/16 10/09/16 10/10/16 15:00 23:00 07:00 Intake Total 360 ml 300 ml Output Total 400 ml 850 ml Balance -40 ml -550 ml Exam PHYSICAL EXAMINATION: VITAL SIGNS: The patient is currently afebrile, with stable vital signs. HEENT: Extraocular motions are intact. Oropharynx is clear. NECK: Supple. LUNGS: Clear anteriorly. CARDIAC: S1, S2. ABDOMEN: Soft, nontender, positive bowel sounds. NEUROLOGIC: She is awake and alert. She is oriented to person and hospital. She will follow simple 1-step commands. She demonstrates good strength in the right upper and lower extremities. She has a flaccid left upper extremity. She has antigravity strength in the left lower extremity. Results Result Diagram: 10/10/16 0657 10/10/16 0657 Results 24 hrs Laboratory Tests Test 10/10/16 06:57 White Blood Count 7.6 Red Blood Count 4.07 L Hemoglobin 11.8 L Hematocrit 36.1 L Mean Corpuscular Volume 88.7 Mean Corpuscular Hemoglobin 29.0 Mean Corpuscular Hemoglobin Concent 32.7 Red Cell Distribution Width 15.1 H Platelet Count 296 Mean Platelet Volume 10.2 Neutrophils % 60.7 Lymphocytes % 30.0 Monocytes % 6.8 Eosinophils % 1.8 Basophils % 0.4 Nucleated Red Blood Cells % 0.0 Neutrophils # 4.6 Lymphocytes # 2.3 Monocytes # 0.5 Eosinophils # 0.1 Basophils # 0.0 Nucleated Red Blood Cells # 0.0 Sodium Level 136 Potassium Level 3.6 Chloride Level 103 Carbon Dioxide Level 26 Anion Gap 11 Blood Urea Nitrogen 10 Creatinine 0.55 Glucose Level 111 Calcium Level 9.3 Total Bilirubin 0.6 Direct Bilirubin 0.00 Indirect Bilirubin 0.6 Aspartate Amino Transf (AST/SGOT) 20 Alanine Aminotransferase (ALT/SGPT) 20 Alkaline Phosphatase 123 H Total Protein 6.6 Albumin 3.3 Globulin 3.30 H Albumin/Globulin Ratio 1.00 Medications Medications Current Medications Acetaminophen (Tylenol Tab) 650 mg Q4H PRN PO FOR PAIN -11/04; Start 10/09/16 at 19:30 Apixaban (Eliquis) 5 mg BID PO Last administered on 10/10/16 08:09; Admin Dose 5 MG; Start 10/09/16 at 21:00 Atorvastatin Calcium (Lipitor) 80 mg QHS PO Last administered on 10/09/16 20: 04; Admin Dose 80 MG; Start 10/09/16 at 21:00 Docusate Sodium (Colace Liquid Cup) 100 mg BID PO Last administered on 08:09; Admin Dose 100 MG; Start 10/09/16 at 21:00 Escitalopram Oxalate (Lexapro) 10 mg QHS PO Last administered on 10/09/16 20: 05; Admin Dose 10 MG; Start 10/09/16 at 21:00 Famotidine (Pepcid) 20 mg DAILY@09 PO Last administered on 10/10/16 08:11; Admin Dose 20 MG; Start 10/10/16 at 09:00 Metoprolol Tartrate (Lopressor) 12.5 mg BID PO Last administered on 10/10/16 08:11; Admin Dose 12.5 MG; Start 10/09/16 at 21:00 Polyethylene Glycol (Miralax) 17 gm DAILY PO Last administered on 10/10/16 08: 09; Admin Dose 17 GM; Start 10/10/16 at 09:00 Simethicone (Mylicon) 80 mg Q6H PRN PO DISTENSION/GAS/BLOATING Last administered on 10/09/16 20:04; Admin Dose 80 MG; Start 10/09/16 at 19:30 Senna (Senokot) 1 tab HS PO Last administered on 10/09/16 20:05; Admin Dose 1 TAB; Start 10/09/16 at 21:00 Bisacodyl (Dulcolax Supp) 10 mg DAILY PRN [place] CONSTIPATION; Start 10/09/16 at 19 :30 Magnesium Hydroxide (Milk Of Mag) 30 ml BID PRN PO CONSTIPATION; Start at 19:30 Lactulose (Enulose) 20 gm DAILY PRN PO CONSTIPATION; Start 10/09/16 at 19:30 Temazepam (Restoril) 15 mg HS PRN PO INSOMNIA; Start 10/10/16 at 01:55 Multivitamins/ Minerals (Theragran-M) 1 tab DAILY PO Last administered on 08:11; Admin Dose 1 TAB; Start 10/10/16 at 09:00 Lisinopril (Zestril) 5 mg DAILY PO Last administered on 10/10/16 08:11; Admin Dose 5 MG; Start 10/10/16 at 09:00 Al Hydroxide/Mg Trisilicate (Gaviscon) 1 tab TID PRN PO HEARTBURN Last administered on 10/10/16 03:47; Admin Dose 1 TAB; Start 10/10/16 at 02:00 TERRA RANGEL MD Oct 10, 2016 10:44
--- NOTE | 2016-10-10 11:35 | HP ---
Date/Time of Note Date/Time of Note DATE: 10/10/16 TIME: 11:34 Assessment/Plan VTE Prophylaxis VTE Prophylaxis Intervention: other Lines/Catheters IV [facility]ter [facility]from [facility]): Saline Lock Assessment/Plan Assessment/Plan 1. Incarcerated abdominal hernia. The patient is status post laparoscopic repair, status post lysis of adhesions. The patient is postop day #5, currently stable. Continue supportive care. 2. History of cerebrovascular accident with left-sided hemiparesis. The patient was resumed on Eliquis. Currently admitted to ARU for continuity of care 3. History of coronary artery disease. Continue medical management. 4. Hypertension. Continue current blood pressure regimen. 5. Dyslipidemia. Continue statin therapy. 6. Anemia. Continue to monitor hemoglobin and hematocrit levels. 7. Soft tissue mass, right acetabulum, questionable malignancy. Etiology is unclear, defer to hematology for evaluation. 8. General debility. Continue physical therapy. HPI/ROS Admit Date/Time Admit Date/Time Oct 09, 2016 at 16:20 ROS Eyes: no complaints ENT: no complaints Respiratory: no complaints Cardiovascular: no complaints Gastrointestinal: no complaints Genitourinary: no complaints Musculoskeletal: no complaints Skin: no complaints Neurologic: other Lymphatic: no complaints Psychological: no complaints Immunologic: no complaints PMH/Family/Social Past Medical History HISTORY OF PRESENT ILLNESS: The patient is a pleasant 81-year-old female with a history of multiple medical comorbidities, who had a recent CVA with left- sided weakness. The patient was transferred to a detention facility for rehabilitative care; however, was noted to have increasing abdominal pain and was brought to the acute hospital, where she was noted to have an incarcerated hernia, as well as a soft tissue mass in the right acetabulum. The patient underwent laparoscopic repair of the hernia. The patient is now with significant impairments in self-care and mobility as compared to baseline, and has been cleared to transfer to the rehabilitation unit for comprehensive interdisciplinary rehab care. FUNCTIONAL HISTORY: Prior to recent events she was independent in self-care tasks and mobility. Currently she requires moderate assist for self-care and mobility tasks. SOCIAL HISTORY: The patient reportedly has a supportive family who is looking to have her return home with supervision. PAST MEDICAL HISTORY: 1. Hypertension. 2. History of diverticulitis. 3. History of coronary artery disease. 4. History of depression. 5. Dyslipidemia. CURRENT MEDICATIONS: 1. Lisinopril 5 mg p.o. daily. 2. Gaviscon ES p.o. t.i.d. 3. Temazepam 50 mg p.o. at bedtime p.r.n. 4. Eliquis 5 mg p.o. b.i.d. 5. Lipitor 80 mg p.o. at bedtime. 6. Lexapro 10 mg p.o. at bedtime. 7. Lopressor 12.5 mg p.o. b.i.d. 8. MiraLax p.r.n. 9. Mylicon p.r.n. ALLERGIES: PATIENT WITH NO KNOWN DRUG ALLERGIES. PHYSICAL EXAMINATION: VITAL SIGNS: The patient is currently afebrile, with stable vital signs. HEENT: Extraocular motions are intact. Oropharynx is clear. NECK: Supple. LUNGS: Clear anteriorly. CARDIAC: S1, S2. ABDOMEN: Soft, nontender, positive bowel sounds. NEUROLOGIC: She is awake and alert. She is oriented to person and hospital. She will follow simple 1-step commands. She demonstrates good strength in the right upper and lower extremities. She has a flaccid left upper extremity. She has antigravity strength in the left lower extremity. Past Surgical History Past Surgical Hx: no surgical history Social History Smoking Status: Never smoker Exam/Review of Systems Vital Signs Vitals Vital Signs Date Time Temp Pulse Resp B/P Pulse Ox O2 Delivery O2 Flow Rate FiO2 10/10/16 08:33 97.7 83 18 138/78 97 10/09/16 16:20 Room Air Intake and Output 10/09/16 10/09/16 10/10/16 15:00 23:00 07:00 Intake Total 360 ml 300 ml Output Total 400 ml 850 ml Balance -40 ml -550 ml Labs Result Diagram: 10/10/16 0657 10/10/16 0657 Medications Medications Current Medications Acetaminophen (Tylenol Tab) 650 mg Q4H PRN PO FOR PAIN 1-5; Start 10/09/16 at 19:30 Apixaban (Eliquis) 5 mg BID PO Last administered on 10/10/16 08:09; Admin Dose 5 MG; Start 10/09/16 at 21:00 Atorvastatin Calcium (Lipitor) 80 mg QHS PO Last administered on 10/09/16 20: 04; Admin Dose 80 MG; Start 10/09/16 at 21:00 Docusate Sodium (Colace Liquid Cup) 100 mg BID PO Last administered on 08:09; Admin Dose 100 MG; Start 10/09/16 at 21:00 Escitalopram Oxalate (Lexapro) 10 mg QHS PO Last administered on 10/09/16 20: 05; Admin Dose 10 MG; Start 10/09/16 at 21:00 Famotidine (Pepcid) 20 mg DAILY@09 PO Last administered on 10/10/16 08:11; Admin Dose 20 MG; Start 10/10/16 at 09:00 Metoprolol Tartrate (Lopressor) 12.5 mg BID PO Last administered on 10/10/16 08:11; Admin Dose 12.5 MG; Start 10/09/16 at 21:00 Polyethylene Glycol (Miralax) 17 gm DAILY PO Last administered on 10/10/16 08: 09; Admin Dose 17 GM; Start 10/10/16 at 09:00 Simethicone (Mylicon) 80 mg Q6H PRN PO DISTENSION/GAS/BLOATING Last administered on 10/09/16 20:04; Admin Dose 80 MG; Start 10/09/16 at 19:30 Senna (Senokot) 1 tab HS PO Last administered on 10/09/16 20:05; Admin Dose 1 TAB; Start 10/09/16 at 21:00 Bisacodyl (Dulcolax Supp) 10 mg DAILY PRN [place] CONSTIPATION; Start 10/09/16 at 19 :30 Magnesium Hydroxide (Milk Of Mag) 30 ml BID PRN PO CONSTIPATION; Start at 19:30 Lactulose (Enulose) 20 gm DAILY PRN PO CONSTIPATION; Start 10/09/16 at 19:30 Temazepam (Restoril) 15 mg HS PRN PO INSOMNIA; Start 10/10/16 at 01:55 Multivitamins/ Minerals (Theragran-M) 1 tab DAILY PO Last administered on 08:11; Admin Dose 1 TAB; Start 10/10/16 at 09:00 Lisinopril (Zestril) 5 mg DAILY PO Last administered on 10/10/16 08:11; Admin Dose 5 MG; Start 10/10/16 at 09:00 Al Hydroxide/Mg Trisilicate (Gaviscon) 1 tab TID PRN PO HEARTBURN Last administered on 10/10/16t 03:47; Admin Dose 1 TAB; Start 10/10/16 at 02:00 FORTUNATO ALBERTO DO Oct 10, 2016 11:35
[2016-10-10 20:00] VITALS: BP 175/89; PULSE 84; RESP 18
[2016-10-10] MEDS: ESCITALOPRAM 10 MG TAB PO SCH (20:26)
[2016-10-10] MEDS: ATORVASTATIN 80 MG TAB PO SCH (20:28)
[2016-10-10] MEDS: SENNA TAB PO SCH (20:28)
[2016-10-10 22:06] VITALS: BP 151/75; RESP 18
[2016-10-11] MEDS: TEMAZEPAM 15 MG CAP PO PRN ×2 (00:08→20:38)
[2016-10-11 07:30] VITALS: BP 128/78; RESP 18
[2016-10-11] MEDS: DOCUSATE SODIUM 10 MG/ML (10ML CUP) PO SCH ×3 (08:30→20:38)
[2016-10-11] MEDS: APIXABAN 5 MG TABLET PO SCH ×2 (08:30→20:38)
[2016-10-11] MEDS: METOPROLOL 25 MG TAB PO SCH ×2 (08:31→20:38)
[2016-10-11] MEDS: POLYETHYLENE GLYCOL 17 GM PACKET PO SCH (08:31)
[2016-10-11] MEDS: LISINOPRIL 5 MG TAB PO SCH (08:32)
[2016-10-11] MEDS: FAMOTIDINE 20 MG TAB PO SCH (08:32)
[2016-10-11] MEDS: MULTIVITAMINS/MINERALS TAB PO SCH (08:32)
--- NOTE | 2016-10-11 12:21 | PN ---
Date/Time of Note Date/Time of Note DATE: 10/11/16 TIME: 12:20 Assessment/Plan VTE Prophylaxis VTE Prophylaxis Intervention: other Lines/Catheters IV Catheter Type (from [facility]): Saline Lock Assessment/Plan Assessment/Plan 1. Incarcerated abdominal hernia. The patient is status post laparoscopic repair, status post lysis of adhesions. The patient is postop day #6, currently stable. Continue supportive care. 2. History of cerebrovascular accident with left-sided hemiparesis. The patient was resumed on Eliquis. Currently admitted to ARU for continuity of care 3. History of coronary artery disease. Continue medical management. 4. Hypertension. Continue current blood pressure regimen. 5. Dyslipidemia. Continue statin therapy. 6. Anemia. Continue to monitor hemoglobin and hematocrit levels. 7. Soft tissue mass, right acetabulum, questionable malignancy. Etiology is unclear, defer to hematology for evaluation. 8. General debility. Continue physical therapy. Subjective 24 Hr Interval Summary Free Text/Dictation internal medicine follow up ROS Eyes: no complaints ENT: no complaints Respiratory: no complaints Cardiovascular: no complaints Gastrointestinal: no complaints Genitourinary: no complaints Musculoskeletal: no complaints Skin: no complaints Neurologic: other Lymphatic: no complaints Psychological: no complaints Immunologic: no complaints The patient is a pleasant 81-year-old female with a history of multiple medical comorbidities, who had a recent CVA with left-sided weakness. The patient was transferred to a fpc facility for rehabilitative care; however, was noted to have increasing abdominal pain and was brought to the acute hospital, where she was noted to have an incarcerated hernia, as well as a soft tissue mass in the right acetabulum. The patient underwent laparoscopic repair of the hernia. The patient is now with significant impairments in self- care and mobility as compared to baseline, and has been cleared to transfer to the rehabilitation unit for comprehensive interdisciplinary rehab care. d/w charge nurse and family at the bedside PHYSICAL EXAMINATION: VITAL SIGNS: The patient is currently afebrile, with stable vital signs. HEENT: Extraocular motions are intact. Oropharynx is clear. NECK: Supple. LUNGS: Clear anteriorly. CARDIAC: S1, S2. ABDOMEN: Soft, nontender, positive bowel sounds. NEUROLOGIC: She is awake and alert. She is oriented to person and hospital. She will follow simple 1-step commands. She demonstrates good strength in the right upper and lower extremities. She has a flaccid left upper extremity. She has antigravity strength in the left lower extremity. Exam/Review of Systems Vital Signs Vitals Vital Signs Date Time Temp Pulse Resp B/P Pulse Ox O2 Delivery O2 Flow Rate FiO2 10/11/16 07:30 98.1 81 18 128/78 97 10/10/16 22:06 Room Air Intake and Output 10/10/16 10/10/16 10/11/16 15:00 23:00 07:00 Intake Total 300 ml 480 ml 360 ml Balance 300 ml 480 ml 360 ml Results Result Diagram: 10/10/16 0657 10/10/16 0657 Medications Medications Current Medications Acetaminophen (Tylenol Tab) 650 mg Q4H PRN PO FOR PAIN -11/04; Start 10/09/16 at 19:30 Apixaban (Eliquis) 5 mg BID PO Last administered on 10/11/16 08:30; Admin Dose 5 MG; Start 10/09/16 at 21:00 Atorvastatin Calcium (Lipitor) 80 mg QHS PO Last administered on 10/10/16 20: 28; Admin Dose 80 MG; Start 10/09/16 at 21:00 Docusate Sodium (Colace Liquid Cup) 100 mg BID PO Last administered on 20:28; Admin Dose 100 MG; Start 10/09/16 at 21:00 Escitalopram Oxalate (Lexapro) 10 mg QHS PO Last administered on 10/10/16 20: 26; Admin Dose 10 MG; Start 10/09/16 at 21:00 Famotidine (Pepcid) 20 mg DAILY@09 PO Last administered on 10/11/16 08:32; Admin Dose 20 MG; Start 10/10/16 at 09:00 Metoprolol Tartrate (Lopressor) 12.5 mg BID PO Last administered on 10/11/16 08:31; Admin Dose 12.5 MG; Start 10/09/16 at 21:00 Polyethylene Glycol (Miralax) 17 gm DAILY PO Last administered on 10/11/16 08: 31; Admin Dose 17 GM; Start 10/10/16 at 09:00 Simethicone (Mylicon) 80 mg Q6H PRN PO DISTENSION/GAS/BLOATING Last administered on 10/09/16 20:04; Admin Dose 80 MG; Start 10/09/16 at 19:30 Senna (Senokot) 1 tab HS PO Last administered on 10/10/16 20:28; Admin Dose 1 TAB; Start 10/09/16 at 21:00 Bisacodyl (Dulcolax Supp) 10 mg DAILY PRN [place] CONSTIPATION; Start 10/09/16 at 19 :30 Magnesium Hydroxide (Milk Of Mag) 30 ml BID PRN PO CONSTIPATION; Start at 19:30 Lactulose (Enulose) 20 gm DAILY PRN PO CONSTIPATION; Start 10/09/16 at 19:30 Temazepam (Restoril) 15 mg HS PRN PO INSOMNIA Last administered on 10/11/16 00 :08; Admin Dose 15 MG; Start 10/10/16 at 01:55 Multivitamins/ Minerals (Theragran-M) 1 tab DAILY PO Last administered on 08:32; Admin Dose 1 TAB; Start 10/10/16 at 09:00 Lisinopril (Zestril) 5 mg DAILY PO Last administered on 10/11/16 08:32; Admin Dose 5 MG; Start 10/10/16 at 09:00 Al Hydroxide/Mg Trisilicate (Gaviscon) 1 tab TID PRN PO HEARTBURN Last administered on 10/10/16 03:47; Admin Dose 1 TAB; Start 10/10/16 at 02:00 FORTUNATO ALBERTO DO Oct 11, 2016 12:21
--- NOTE | 2016-10-11 15:45 | CONS ---
Date/Time of Note Date/Time of Note DATE: 10/11/16 TIME: 15:43 Assessment/Plan Assessment/Plan Chief Complaint/Hosp Course This is an 81-year-old female who presents with: soft tissue mass in the right acetabulum, questionable malignancy versus benign. tumor markers- neg will d/w family how aggressive we will be with w-up D/W SON PAULETTE- AGREED TO DO MRI PELVIS Mild anemia. We will continue to monitor hemoglobin and hematocrit levels. Incarcerated abdominal hernia POST OP History of cerebrovascular accident with left-sided hemiparesis. resumed full anticoagulation. History of coronary artery disease, continue medical management. Hypertension. Blood pressure is currently controlled. We will continue to monitor. We will resume blood pressure medications once the patient is tolerating p.o. History of dyslipidemia. Continue statin therapy. Gastrointestinal and deep venous thrombosis prophylaxis. Continue Pepcid and heparin. General debility. CONT PT Problems: Consultation Date/Type/Reason Admit Date/Time Oct 09, 2016 at 16:20 Initial Consult Date 10/10/16 Type of Consultation: 10.10.16 Referring Provider: MEGAN FLORES DO 24 HR Interval Summary Free Text/Dictation ALL NOTED NO NEW EVENTS Exam/Review of Systems Vital Signs Vitals Vital Signs Date Time Temp Pulse Resp B/P Pulse Ox O2 Delivery O2 Flow Rate FiO2 10/11/16 07:30 98.1 81 18 128/78 97 10/10/16 22:06 Room Air Intake and Output 10/10/16 10/10/16 10/11/16 15:00 23:00 07:00 Intake Total 300 ml 480 ml 360 ml Balance 300 ml 480 ml 360 ml Exam HEENT: Extraocular motions are intact. Oropharynx is clear. NECK: Supple. LUNGS: Clear anteriorly. CARDIAC: S1, S2. ABDOMEN: Soft, nontender, positive bowel sounds. NEUROLOGIC: She is awake and alert. She is oriented to person and hospital. She will follow simple 1-step commands. She demonstrates good strength in the right upper and lower extremities. She has a flaccid left upper extremity. She has antigravity strength in the left lower extremity. NO PATH LN-NAZ Results Result Diagram: 10/10/16 0657 10/10/16 0657 Medications Medications Current Medications Acetaminophen (Tylenol Tab) 650 mg Q4H PRN PO FOR PAIN 1-5/10; Start 10/09/16 at 19:30 Apixaban (Eliquis) 5 mg BID PO Last administered on 10/11/16 08:30; Admin Dose 5 MG; Start 10/09/16 at 21:00 Atorvastatin Calcium (Lipitor) 80 mg QHS PO Last administered on 10/10/16 20: 28; Admin Dose 80 MG; Start 10/09/16 at 21:00 Docusate Sodium (Colace Liquid Cup) 100 mg BID PO Last administered on 20:28; Admin Dose 100 MG; Start 10/09/16 at 21:00 Escitalopram Oxalate (Lexapro) 10 mg QHS PO Last administered on 10/10/16 20: 26; Admin Dose 10 MG; Start 10/09/16 at 21:00 Famotidine (Pepcid) 20 mg DAILY@09 PO Last administered on 10/11/16 08:32; Admin Dose 20 MG; Start 10/10/16 at 09:00 Metoprolol Tartrate (Lopressor) 12.5 mg BID PO Last administered on 10/11/16 08:31; Admin Dose 12.5 MG; Start 10/09/16 at 21:00 Polyethylene Glycol (Miralax) 17 gm DAILY PO Last administered on 10/11/16 08: 31; Admin Dose 17 GM; Start 10/10/16 at 09:00 Simethicone (Mylicon) 80 mg Q6H PRN PO DISTENSION/GAS/BLOATING Last administered on 10/09/16 20:04; Admin Dose 80 MG; Start 10/09/16 at 19:30 Senna (Senokot) 1 tab HS PO Last administered on 10/10/16 20:28; Admin Dose 1 TAB; Start 10/09/16 at 21:00 Bisacodyl (Dulcolax Supp) 10 mg DAILY PRN [place] CONSTIPATION; Start 10/09/16 at 19 :30 Magnesium Hydroxide (Milk Of Mag) 30 ml BID PRN PO CONSTIPATION; Start at 19:30 Lactulose (Enulose) 20 gm DAILY PRN PO CONSTIPATION; Start 10/09/16 at 19:30 Temazepam (Restoril) 15 mg HS PRN PO INSOMNIA Last administered on 10/11/16 00 :08; Admin Dose 15 MG; Start 10/10/16 at 01:55 Multivitamins/ Minerals (Theragran-M) 1 tab DAILY PO Last administered on 08:32; Admin Dose 1 TAB; Start 10/10/16 at 09:00 Lisinopril (Zestril) 5 mg DAILY PO Last administered on 10/11/16 08:32; Admin Dose 5 MG; Start 10/10/16 at 09:00 Al Hydroxide/Mg Trisilicate (Gaviscon) 1 tab TID PRN PO HEARTBURN Last administered on 10/10/16 03:47; Admin Dose 1 TAB; Start 10/10/16 at 02:00 TERRA RANGEL MD Oct 11, 2016 15:45
[2016-10-11] MEDS: [UNRECOGNIZED DRUG - OTHER] PO SCH (18:37)
[2016-10-11 19:35] VITALS: BP 121/56; RESP 19
[2016-10-11] MEDS: ATORVASTATIN 80 MG TAB PO SCH (20:37)
[2016-10-11] MEDS: SENNA TAB PO SCH (20:38)
[2016-10-11] MEDS: ESCITALOPRAM 10 MG TAB PO SCH (20:38)
[2016-10-12] MEDS: [UNRECOGNIZED DRUG - OTHER] PO SCH (02:02)
[2016-10-12 07:30] VITALS: BP 145/96; RESP 18
[2016-10-12] MEDS: MULTIVITAMINS/MINERALS TAB PO SCH (08:12)
[2016-10-12] MEDS: LISINOPRIL 5 MG TAB PO SCH (08:12)
[2016-10-12] MEDS: POLYETHYLENE GLYCOL 17 GM PACKET PO SCH (08:12)
[2016-10-12] MEDS: DOCUSATE SODIUM 10 MG/ML (10ML CUP) PO SCH ×2 (08:12→20:32)
[2016-10-12] MEDS: FAMOTIDINE 20 MG TAB PO SCH (08:12)
[2016-10-12] MEDS: METOPROLOL 25 MG TAB PO SCH ×2 (08:13→20:26)
[2016-10-12] MEDS: APIXABAN 5 MG TABLET PO SCH ×2 (08:13→20:29)
--- NOTE | 2016-10-12 09:44 | PN ---
DATE: 10/12/2016 SUBJECTIVE: The patient is stable, no acute events overnight. No fevers, chills, sweats. No short ness of breath. OBJECTIVE: VITAL SIGNS: Blood pressure 145/96, respiration 18, pulse 73, temperature 98.3. HEENT: Head is normocephalic. NECK: Supple. HEART: Regular rate. LUNGS: Show diminished breath sounds at the base. ABDOMEN: Soft, nontender to palpation. No rebound or guarding. EXTREMITIES: Negative for clubbing, cyanosis. No edema. DERMATOLOGIC: No rashes. MUSCULOSKELETAL: No joint effusions. NEUROLOGIC: No change in exam. MEDICATIONS: Have been reviewed. LABORATORY DATA: Has been reviewed. No new labs. ASSESSMENT AND PLAN: 1. Incarcerated abdominal hernia. The patient is status post laparoscopic repair, status post lysi s of adhesions. The patient is postop day #7, currently stable. Continue supportive care. 2. History of cerebrovascular accident with left-sided hemiparesis. The patient has been resumed o n Eliquis. Continue physical therapy and occupational therapy. 3. Coronary artery disease. Continue current medical management. 4. Hypertension. Blood pressure controlled. Continue current regimen. 5. Dyslipidemia. Continue statin therapy. 6. Anemia. Continue to monitor hemoglobin and hematocrit levels. 7. Soft tissue mass of the right acetabulum, questionable malignancy. Etiology unclear. Defer to hematology for further evaluation. 8. General debility. Continue physical therapy and occupational therapy. 9. Gastrointestinal/deep venous thrombosis prophylaxis. Continue proton pump inhibitor and Eliquis . Dictated By: MEGAN SILVA/JOSÉ ANTONIO Conf#: [id number] DID#: [id number]
--- NOTE | 2016-10-12 10:16 | CONS ---
Date/Time of Note Date/Time of Note DATE: 10/12/16 TIME: 10:15 Assessment/Plan Assessment/Plan Chief Complaint/Hosp Course This is an 81-year-old female who presents with: soft tissue mass in the right acetabulum, questionable malignancy versus benign. tumor markers- neg will d/w family how aggressive we will be with w-up D/W SON PAULETTE- AGREED TO DO MRI PELVIS , W ILL PROCEED TODAY Mild anemia. We will continue to monitor hemoglobin and hematocrit levels. Incarcerated abdominal hernia POST OP History of cerebrovascular accident with left-sided hemiparesis. ON full anticoagulation. History of coronary artery disease, continue medical management. Hypertension. Blood pressure is currently controlled. We will continue to monitor. We will resume blood pressure medications once the patient is tolerating p.o. History of dyslipidemia. Continue statin therapy. Gastrointestinal and deep venous thrombosis prophylaxis. Continue Pepcid and heparin. General debility. CONT PT Problems: Consultation Date/Type/Reason Admit Date/Time Oct 09, 2016 at 16:20 Initial Consult Date 10/10/16 Type of Consultation: 10.10.16 Referring Provider: MEGAN FLORES DO 24 HR Interval Summary Free Text/Dictation ALL NOTED FOR MRI ABD/ PELVIS TODAY Exam/Review of Systems Vital Signs Vitals Vital Signs Date Time Temp Pulse Resp B/P Pulse Ox O2 Delivery O2 Flow Rate FiO2 10/12/16 07:30 98.3 73 18 145/96 98 10/10/16 22:06 Room Air Intake and Output 10/11/16 10/11/16 10/12/16 15:00 23:00 07:00 Intake Total 480 ml Balance 480 ml Exam HEENT: Extraocular motions are intact. Oropharynx is clear. NECK: Supple. LUNGS: Clear anteriorly. CARDIAC: S1, S2. ABDOMEN: Soft, nontender, positive bowel sounds. NEUROLOGIC: She is awake and alert. She is oriented to person and hospital. She will follow simple 1-step commands. She demonstrates good strength in the right upper and lower extremities. She has a flaccid left upper extremity. She has antigravity strength in the left lower extremity. NO PATH LN-NAZ Results Result Diagram: 10/10/16 0657 10/10/16 0657 Medications Medications Current Medications Acetaminophen (Tylenol Tab) 650 mg Q4H PRN PO FOR PAIN 1-5/10; Start 10/09/16 at 19:30 Apixaban (Eliquis) 5 mg BID PO Last administered on 10/12/16 08:13; Admin Dose 5 MG; Start 10/09/16 at 21:00 Atorvastatin Calcium (Lipitor) 80 mg QHS PO Last administered on 10/11/16 20: 37; Admin Dose 80 MG; Start 10/09/16 at 21:00 Docusate Sodium (Colace Liquid Cup) 100 mg BID PO Last administered on 08:12; Admin Dose 100 MG; Start 10/09/16 at 21:00 Escitalopram Oxalate (Lexapro) 10 mg QHS PO Last administered on 10/11/16 20: 38; Admin Dose 10 MG; Start 10/09/16 at 21:00 Famotidine (Pepcid) 20 mg DAILY@09 PO Last administered on 10/12/16 08:12; Admin Dose 20 MG; Start 10/10/16 at 09:00 Metoprolol Tartrate (Lopressor) 12.5 mg BID PO Last administered on 10/12/16 08:13; Admin Dose 12.5 MG; Start 10/09/16 at 21:00 Polyethylene Glycol (Miralax) 17 gm DAILY PO Last administered on 10/12/16 08: 12; Admin Dose 17 GM; Start 10/10/16 at 09:00 Senna (Senokot) 1 tab HS PO Last administered on 10/11/16 20:38; Admin Dose 1 TAB; Start 10/09/16 at 21:00 Bisacodyl (Dulcolax Supp) 10 mg DAILY PRN [place] CONSTIPATION; Start 10/09/16 at 19 :30 Magnesium Hydroxide (Milk Of Mag) 30 ml BID PRN PO CONSTIPATION; Start at 19:30 Lactulose (Enulose) 20 gm DAILY PRN PO CONSTIPATION; Start 10/09/16 at 19:30 Temazepam (Restoril) 15 mg HS PRN PO INSOMNIA Last administered on 10/11/16 20 :38; Admin Dose 15 MG; Start 10/10/16 at 01:55 Multivitamins/ Minerals (Theragran-M) 1 tab DAILY PO Last administered on 08:12; Admin Dose 1 TAB; Start 10/10/16 at 09:00 Lisinopril (Zestril) 5 mg DAILY PO Last administered on 10/12/16 08:12; Admin Dose 5 MG; Start 10/10/16 at 09:00 Al Hydroxide/Mg Trisilicate (Gaviscon) 1 tab TID PRN PO HEARTBURN Last administered on 10/10/16 03:47; Admin Dose 1 TAB; Start 10/10/16 at 02:00 Patient Own Medication 1 ea DAILY PO Last administered on 10/12/16 02:02; Admin Dose 1 EA; Start 10/12/16 at 09:00 TERRA RANGEL MD Oct 12, 2016 10:16
--- NOTE | 2016-10-12 12:08 | CONS ---
Date/Time of Note Date/Time of Note DATE: 10/12/16 TIME: 12:06 Consult Date/Type/Reason Admit Date/Time Oct 09, 2016 at 16:20 Initial Consult Date 10/10/16 Type of Consultation: 10.10.16 Ordering Provider: MEGAN FLORES DO Subjective Comfortable Objective pulm-cta abd-soft Vital Signs Date Time Temp Pulse Resp B/P Pulse Ox O2 Delivery O2 Flow Rate FiO2 10/12/16 07:30 98.3 73 18 145/96 98 10/10/16 22:06 Room Air Intake and Output 10/11/16 10/11/16 10/12/16 15:00 23:00 07:00 Intake Total 480 ml Balance 480 ml INTERDISCIPLINARY TEAM CONFERENCE BOWEL- Cont BLADDER-Cont SKIN- intact OT- DRESSING-mod/max BATHING-mod/max TOILETING-mod/max PT- BED MOBILITY-max TRANSFERS-max AMBULATION-max 10 feet SPEECH- COGNITION-[place] DYPHAGIA-mech soft A/P- Interdisciplinary team conference held today. Please see interdisciplinary sheet. Working toward d.c. on 10/22 with post discharge follow up of physical therapy, occupational therapy. Results/Medications Result Diagram: 10/10/16 0657 10/10/16 0657 Medications Current Medications Acetaminophen (Tylenol Tab) 650 mg Q4H PRN PO FOR PAIN 1-5; Start 10/09/16 at 19:30 Apixaban (Eliquis) 5 mg BID PO Last administered on 10/12/16 08:13; Admin Dose 5 MG; Start 10/09/16 at 21:00 Atorvastatin Calcium (Lipitor) 80 mg QHS PO Last administered on 10/11/16 20: 37; Admin Dose 80 MG; Start 10/09/16 at 21:00 Docusate Sodium (Colace Liquid Cup) 100 mg BID PO Last administered on 08:12; Admin Dose 100 MG; Start 10/09/16 at 21:00 Escitalopram Oxalate (Lexapro) 10 mg QHS PO Last administered on 10/11/16 20: 38; Admin Dose 10 MG; Start 10/09/16 at 21:00 Famotidine (Pepcid) 20 mg DAILY@09 PO Last administered on 10/12/16 08:12; Admin Dose 20 MG; Start 10/10/16 at 09:00 Metoprolol Tartrate (Lopressor) 12.5 mg BID PO Last administered on 10/12/16 08:13; Admin Dose 12.5 MG; Start 10/09/16 at 21:00 Polyethylene Glycol (Miralax) 17 gm DAILY PO Last administered on 10/12/16 08: 12; Admin Dose 17 GM; Start 10/10/16 at 09:00 Senna (Senokot) 1 tab HS PO Last administered on 10/11/16 20:38; Admin Dose 1 TAB; Start 10/09/16 at 21:00 Bisacodyl (Dulcolax Supp) 10 mg DAILY PRN [place] CONSTIPATION; Start 10/09/16 at 19 :30 Magnesium Hydroxide (Milk Of Mag) 30 ml BID PRN PO CONSTIPATION; Start at 19:30 Lactulose (Enulose) 20 gm DAILY PRN PO CONSTIPATION; Start 10/09/16 at 19:30 Temazepam (Restoril) 15 mg HS PRN PO INSOMNIA Last administered on 10/11/16 20 :38; Admin Dose 15 MG; Start 10/10/16 at 01:55 Multivitamins/ Minerals (Theragran-M) 1 tab DAILY PO Last administered on 08:12; Admin Dose 1 TAB; Start 10/10/16 at 09:00 Lisinopril (Zestril) 5 mg DAILY PO Last administered on 10/12/16 08:12; Admin Dose 5 MG; Start 10/10/16 at 09:00 Al Hydroxide/Mg Trisilicate (Gaviscon) 1 tab TID PRN PO HEARTBURN Last administered on 10/10/16 03:47; Admin Dose 1 TAB; Start 10/10/16 at 02:00 Patient Own Medication 1 ea DAILY PO Last administered on 10/12/16 02:02; Admin Dose 1 EA; Start 10/12/16 at 09:00 FARIDEH COOK MD Oct 12, 2016 12:08
[2016-10-12] MEDS: AL HYDROX/MG TRISILICATE TAB PO PRN ×2 (14:03→23:27)
[2016-10-12] MEDS ORDERED: [UNRECOGNIZED DRUG - OTHER] ORAL PRN (14:30)
[2016-10-12 20:24] VITALS: BP 135/52; RESP 18
[2016-10-12] MEDS: ESCITALOPRAM 10 MG TAB PO SCH (20:26)
[2016-10-12] MEDS: ATORVASTATIN 80 MG TAB PO SCH (20:29)
[2016-10-12] MEDS: SENNA TAB PO SCH (20:29)
[2016-10-13] MEDS: AL HYDROX/MG TRISILICATE TAB PO PRN (06:32)
[2016-10-13 07:36] VITALS: BP 127/74; RESP 18
--- NOTE | 2016-10-13 08:37 | RADRPT ---
PROCEDURE: MR Pelvis with and without contrast. CLINICAL INDICATION: Soft tissue mass. TECHNIQUE: Protocol: MRI of the pelvis with and without intravenous contrast using a female pelvis soft tisssu e protocol. Contrast: 10 cc of intravenous Magnevist. COMPARISON: CT, 10/05/2016. FINDINGS: There is a complex T2 hyperintense cystic mass identified in the region of the posterior acetabulum, measuring approximately 4.5 x 3.3 cm. Postmenopausal uterus measures approximately 7 cm in craniocaudal length. There are multiple small uterine fibroids, largest of which is is a subserosal anterior uterine body fibroid measuring 17 mm. There is also a 9 mm anterior submucosal uterine body fibroid. There is no adnexal cyst or mass. There is moderate to severe sigmoid colonic diverticulosis without diverticulitis. 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 Decompressed urinary bladder is grossly unremarkable. 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 Recommend percutaneous CT guided biopsy for confirmation. Multiple uterine myomas. RPTAT: EE .Hipolito Glynn MD, Date Time Electronically viewed and signed by .Hipolito Glynn MD, on 10/13/2016 08:41 .C/
[2016-10-13] MEDS: POLYETHYLENE GLYCOL 17 GM PACKET PO SCH (09:20)
[2016-10-13] MEDS: MULTIVITAMINS/MINERALS TAB PO SCH (09:21)
[2016-10-13] MEDS: FAMOTIDINE 20 MG TAB PO SCH (09:21)
[2016-10-13] MEDS: DOCUSATE SODIUM 10 MG/ML (10ML CUP) PO SCH ×2 (09:21→21:00)
[2016-10-13] MEDS: LISINOPRIL 5 MG TAB PO SCH (09:23)
[2016-10-13] MEDS: APIXABAN 5 MG TABLET PO SCH ×2 (09:23→21:09)
[2016-10-13] MEDS: METOPROLOL 25 MG TAB PO SCH ×2 (09:23→21:09)
--- NOTE | 2016-10-13 10:55 | PN ---
DATE: 10/13/2016 SUBJECTIVE: The patient is stable, no acute events overnight. No fevers, chills, nausea or vomitin g. OBJECTIVE: VITAL SIGNS: Blood pressure 127/74, respirations 18, pulse 87, temperature 98.4. HEENT: Head is normocephalic. NECK: Supple. HEART: Regular rate. LUNGS: Show diminished breath sounds at base. ABDOMEN: Soft, nontender to palpation without rebound or guarding. EXTREMITIES: Negative for clubbing, cyanosis, edema. DERMATOLOGIC: No rashes. MUSCULOSKELETAL: No joint effusions. NEUROLOGIC: No change in exam. MEDICATIONS: Have been reviewed. LABORATORY DATA: Reviewed. No new labs. IMAGING STUDIES: MRI shows an enhancing mass in the posterior right acetabulum, suggestive of neuro genic tumor. The patient's urine culture is growing out multi____ organisms. ASSESSMENT AND PLAN: 1. Incarcerated abdominal hernia. The patient is status post laparoscopic repair, status post lysi s of adhesions. The patient is postop day #8, currently stable. Continue supportive care. 2. 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 Will defer to hemato logy for evaluation and for possible biopsy. 3. History of cerebrovascular accident with left-sided hemiparesis. Continue Eliquis. 4. Coronary artery disease. Continue medical management. 5. Hypertension. Continue current blood pressure regimen. 6. Dyslipidemia. Continue statin therapy. 7. Anemia. Continue to monitor hemoglobin and hematocrit levels. 8. General debility. Continue physical therapy. 9. Gastrointestinal and deep venous thrombosis prophylaxis. Continue proton pump inhibitor and Ciara elyse. 10. Urinary contamination. The patient's urine culture shows multi____organisms. There is no evid ence of sepsis or urinary tract infection at this time. Will continue to monitor. Dictated By: MEGAN SILVA/JOSÉ ANTONIO Conf#: [id number] DID#: [id number]
--- NOTE | 2016-10-13 12:25 | CONS ---
Date/Time of Note Date/Time of Note DATE: 10/13/16 TIME: 12:22 Consult Date/Type/Reason Admit Date/Time Oct 09, 2016 at 16:20 Initial Consult Date 10/10/16 Type of Consultation: . Ordering Provider: MEGAN FLORES DO Subjective tired after therapy this morning Objective pulm-cta mod assist transfer and amb 25 feet Vital Signs Date Time Temp Pulse Resp B/P Pulse Ox O2 Delivery O2 Flow Rate FiO2 10/13/16 07:36 98.4 87 18 127/74 97 10/10/16 22:06 Room Air Intake and Output 10/12/16 10/12/16 10/13/16 15:00 23:00 07:00 Intake Total 300 ml 420 ml 240 ml Balance 300 ml 420 ml 240 ml Results/Medications Result Diagram: 10/10/16 0657 10/10/16 0657 Medications Current Medications Acetaminophen (Tylenol Tab) 650 mg Q4H PRN PO FOR PAIN -11/04; Start 10/09/16 at 19:30 Apixaban (Eliquis) 5 mg BID PO Last administered on 10/13/16 09:23; Admin Dose 5 MG; Start 10/09/16 at 21:00 Atorvastatin Calcium (Lipitor) 80 mg QHS PO Last administered on 10/12/16 20: 29; Admin Dose 80 MG; Start 10/09/16 at 21:00 Docusate Sodium (Colace Liquid Cup) 100 mg BID PO Last administered on 09:21; Admin Dose 100 MG; Start 10/09/16 at 21:00 Escitalopram Oxalate (Lexapro) 10 mg QHS PO Last administered on 10/12/16 20: 26; Admin Dose 10 MG; Start 10/09/16 at 21:00 Famotidine (Pepcid) 20 mg DAILY@09 PO Last administered on 10/13/16 09:21; Admin Dose 20 MG; Start 10/10/16 at 09:00 Metoprolol Tartrate (Lopressor) 12.5 mg BID PO Last administered on 10/13/16 09:23; Admin Dose 12.5 MG; Start 10/09/16 at 21:00 Polyethylene Glycol (Miralax) 17 gm DAILY PO Last administered on 10/13/16 09: 20; Admin Dose 17 GM; Start 10/10/16 at 09:00 Senna (Senokot) 1 tab HS PO Last administered on 10/12/16 20:29; Admin Dose 1 TAB; Start 10/09/16 at 21:00 Bisacodyl (Dulcolax Supp) 10 mg DAILY PRN [place] CONSTIPATION; Start 10/09/16 at 19 :30 Magnesium Hydroxide (Milk Of Mag) 30 ml BID PRN PO CONSTIPATION; Start at 19:30 Lactulose (Enulose) 20 gm DAILY PRN PO CONSTIPATION; Start 10/09/16 at 19:30 Temazepam (Restoril) 15 mg HS PRN PO INSOMNIA Last administered on 10/11/16 20 :38; Admin Dose 15 MG; Start 10/10/16 at 01:55 Multivitamins/ Minerals (Theragran-M) 1 tab DAILY PO Last administered on 09:21; Admin Dose 1 TAB; Start 10/10/16 at 09:00 Lisinopril (Zestril) 5 mg DAILY PO Last administered on 10/13/16 09:23; Admin Dose 5 MG; Start 10/10/16 at 09:00 Al Hydroxide/Mg Trisilicate (Gaviscon) 1 tab TID PRN PO HEARTBURN Last administered on 10/13/16 06:32; Admin Dose 1 TAB; Start 10/10/16 at 02:00 Simethicone (Mylicon) 160 mg TID PRN PO DISTENSION/GAS/BLOATING; Start at 15:00 Assessment/Plan Additional Assessment/Plan Rehab- Right infarct cerebrovascular accident with left-sided weakness. Continue interdisciplinary rehab Rt acetab mass- Enhancing, enhancing mass located posterior to the right acetabulum on MRI. F/B heme/onc Dysphagia-speech Status post laparoscopic repair of abdominal hernia. Coronary artery disease. Hypertension. Dyslipidemia. FARIDEH COOK MD Oct 13, 2016 12:25
--- NOTE | 2016-10-13 18:15 | CONS ---
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 Recommend percutaneous CT guided biopsy for confirmation. WILL D/W FAMILY Multiple uterine myomas. Mild anemia. We will continue to monitor hemoglobin and hematocrit levels. Incarcerated abdominal hernia POST OP History of cerebrovascular accident with left-sided hemiparesis. ON full anticoagulation. History of coronary artery disease, continue medical management. Hypertension. Blood pressure is currently controlled. We will continue to monitor. We will resume blood pressure medications once the patient is tolerating p.o. History of dyslipidemia. Continue statin therapy. Gastrointestinal and deep venous thrombosis prophylaxis. Continue Pepcid and heparin. General debility. CONT PT Problems: Consultation Date/Type/Reason Admit Date/Time Oct 09, 2016 at 16:20 Initial Consult Date 10/10/16 Type of Consultation: 10.10.16 Referring Provider: MEGAN FLORES DO 24 HR Interval Summary Free Text/Dictation ALL NOTED NO NEW EVENTS Exam/Review of Systems Vital Signs Vitals Vital Signs Date Time Temp Pulse Resp B/P Pulse Ox O2 Delivery O2 Flow Rate FiO2 10/13/16 07:36 98.4 87 18 127/74 97 10/10/16 22:06 Room Air Intake and Output 10/12/16 10/12/16 10/13/16 15:00 23:00 07:00 Intake Total 300 ml 420 ml 240 ml Balance 300 ml 420 ml 240 ml Exam HEENT: Head is normocephalic. NECK: Supple. HEART: Regular rate. LUNGS: Show diminished breath sounds at base. ABDOMEN: Soft, nontender to palpation without rebound or guarding. EXTREMITIES: Negative for clubbing, cyanosis, edema. DERMATOLOGIC: No rashes. MUSCULOSKELETAL: No joint effusions. NEUROLOGIC: No change in exam. Results Result Diagram: 10/10/16 0657 10/10/16 0657 Medications Medications Current Medications Acetaminophen (Tylenol Tab) 650 mg Q4H PRN PO FOR PAIN 1-5/10; Start 10/09/16 at 19:30 Apixaban (Eliquis) 5 mg BID PO Last administered on 10/13/16 09:23; Admin Dose 5 MG; Start 10/09/16 at 21:00 Atorvastatin Calcium (Lipitor) 80 mg QHS PO Last administered on 10/12/16 20: 29; Admin Dose 80 MG; Start 10/09/16 at 21:00 Docusate Sodium (Colace Liquid Cup) 100 mg BID PO Last administered on 09:21; Admin Dose 100 MG; Start 10/09/16 at 21:00 Escitalopram Oxalate (Lexapro) 10 mg QHS PO Last administered on 10/12/16 20: 26; Admin Dose 10 MG; Start 10/09/16 at 21:00 Famotidine (Pepcid) 20 mg DAILY@09 PO Last administered on 10/13/16 09:21; Admin Dose 20 MG; Start 10/10/16 at 09:00 Metoprolol Tartrate (Lopressor) 12.5 mg BID PO Last administered on 10/13/16 09:23; Admin Dose 12.5 MG; Start 10/09/16 at 21:00 Polyethylene Glycol (Miralax) 17 gm DAILY PO Last administered on 10/13/16 09: 20; Admin Dose 17 GM; Start 10/10/16 at 09:00 Senna (Senokot) 1 tab HS PO Last administered on 10/12/16 20:29; Admin Dose 1 TAB; Start 10/09/16 at 21:00 Bisacodyl (Dulcolax Supp) 10 mg DAILY PRN [place] CONSTIPATION; Start 10/09/16 at 19 :30 Magnesium Hydroxide (Milk Of Mag) 30 ml BID PRN PO CONSTIPATION; Start at 19:30 Lactulose (Enulose) 20 gm DAILY PRN PO CONSTIPATION; Start 10/09/16 at 19:30 Temazepam (Restoril) 15 mg HS PRN PO INSOMNIA Last administered on 10/11/16 20 :38; Admin Dose 15 MG; Start 10/10/16 at 01:55 Multivitamins/ Minerals (Theragran-M) 1 tab DAILY PO Last administered on 09:21; Admin Dose 1 TAB; Start 10/10/16 at 09:00 Lisinopril (Zestril) 5 mg DAILY PO Last administered on 10/13/16 09:23; Admin Dose 5 MG; Start 10/10/16 at 09:00 Al Hydroxide/Mg Trisilicate (Gaviscon) 1 tab TID PRN PO HEARTBURN Last administered on 10/13/16 06:32; Admin Dose 1 TAB; Start 10/10/16 at 02:00 Simethicone (Mylicon) 160 mg TID PRN PO DISTENSION/GAS/BLOATING; Start at 15:00 Procedures Procedures [place] [id number] Radiology Main Line: [phone] DIAGNOSTIC IMAGING REPORT Patient: MARIANELA MURILLO : 1935 Age: 81 Sex: F MR #: [id number] DOS: 10/12/16 0900 Ordering MD: TERRA RANGEL MD Location: [facility] Room/Bed: [facility] PROCEDURE: MR Pelvis with and without contrast. CLINICAL INDICATION: Soft tissue mass. TECHNIQUE: Protocol: MRI of the pelvis with and without intravenous contrast using a female pelvis soft tisssue protocol. Contrast: 10 cc of intravenous Magnevist. COMPARISON: CT, 10/05/2016. FINDINGS: There is a complex T2 hyperintense cystic mass identified in the region of the posterior acetabulum, measuring approximately 4.5 x 3.3 cm. Postmenopausal uterus measures approximately 7 cm in craniocaudal length. There are multiple small uterine fibroids, largest of which is is a subserosal anterior uterine body fibroid measuring 17 mm. There is also a 9 mm anterior submucosal uterine body fibroid. There is no adnexal cyst or mass. There is moderate to severe sigmoid colonic diverticulosis without diverticulitis. 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 Decompressed urinary bladder is grossly unremarkable. 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 Recommend percutaneous CT guided biopsy for confirmation. Multiple uterine myomas. TERRA RANGEL MD Oct 13, 2016 18:15
[2016-10-13 20:00] VITALS: BP 133/68; RESP 18
[2016-10-13] MEDS: ESCITALOPRAM 10 MG TAB PO SCH (21:09)
[2016-10-13] MEDS: SENNA TAB PO SCH (21:09)
[2016-10-13] MEDS: ATORVASTATIN 80 MG TAB PO SCH (21:09)
[2016-10-14] MEDS: AL HYDROX/MG TRISILICATE TAB PO PRN (01:50)
[2016-10-14 07:47] VITALS: BP 106/76; RESP 18
[2016-10-14] MEDS: POLYETHYLENE GLYCOL 17 GM PACKET PO SCH (08:20)
[2016-10-14] MEDS: DOCUSATE SODIUM 10 MG/ML (10ML CUP) PO SCH ×2 (08:20→20:38)
[2016-10-14] MEDS: APIXABAN 5 MG TABLET PO SCH ×2 (08:20→20:38)
[2016-10-14] MEDS: MULTIVITAMINS/MINERALS TAB PO SCH (08:20)
[2016-10-14] MEDS: METOPROLOL 25 MG TAB PO SCH ×2 (08:21→20:39)
[2016-10-14] MEDS: LISINOPRIL 5 MG TAB PO SCH (08:22)
[2016-10-14] MEDS: FAMOTIDINE 20 MG TAB PO SCH (08:24)
--- NOTE | 2016-10-14 10:25 | PN ---
DATE: 10/14/2016 SUBJECTIVE: The patient is stable, no acute events overnight. No fevers, chills, nausea, vomiting, no shortness of breath. OBJECTIVE: VITAL SIGNS: Blood pressure is 106/76, respiration 18, pulse 77, temperature 98.1. HEENT: Head is normocephalic. NECK: Supple. HEART: Regular rate. LUNGS: Show diminished breath sounds at the base. ABDOMEN: Soft, nontender to palpation without rebound or guarding. EXTREMITIES: Negative for clubbing, cyanosis, no edema. DERMATOLOGIC: No rashes. MUSCULOSKELETAL: No joint effusions. NEUROLOGIC: No change in exam. MEDICATIONS: The patient's medications have been reviewed. LABORATORY DATA: Has been reviewed. No new labs. Pelvic ultrasound was reviewed. ASSESSMENT AND PLAN: 1. Incarcerated abdominal hernia status post laparoscopic repair, status post lysis of adhesions. The patient is postop day #9, currently stable. Continue physical therapy. 2. Pelvic mass. MRI suggests ____ endocrine tumor. I reviewed yesterday the patient's previous im aging study which was given to me by the patient's grandson. I also discussed with the patient's so n, Dev, about whether to pursue a biopsy. He will review it with Dr. Huntley. Otherwise, con tranue to monitor. 3. History of cerebrovascular accident with left-sided hemiparesis. Continue Eliquis. 4. Coronary disease. Continue medical management. 5. Hypertension. Continue current blood pressure regimen. 6. Dyslipidemia. Continue statin therapy. 7. Anemia. Continue to monitor hemoglobin and hematocrit levels. 8. Gastrointestinal and deep venous thrombosis prophylaxis. Continue proton pump inhibitor and Ciara elyse. 9. General debility. Continue physical therapy. 10. Urinary contamination. Will continue to monitor. No obvious signs of sepsis or urinary tract infection. Dictated By: MEGAN SILVA/JOSÉ ANTONIO Conf#: [id number] DID#: [id number]
--- NOTE | 2016-10-14 12:37 | CONS ---
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 Recommend percutaneous CT guided biopsy for confirmation. WILL D/W FAMILY- PT HAD PELVIC MASS 2 YR AGO ON IMAGING STUDIES AT [facility] WILL COMPARE Multiple uterine myomas. Mild anemia. We will continue to monitor hemoglobin and hematocrit levels. Incarcerated abdominal hernia POST OP History of cerebrovascular accident with left-sided hemiparesis. ON full anticoagulation. History of coronary artery disease, continue medical management. Hypertension. Blood pressure is currently controlled. We will continue to monitor. We will resume blood pressure medications once the patient is tolerating p.o. History of dyslipidemia. Continue statin therapy. Gastrointestinal and deep venous thrombosis prophylaxis. Continue Pepcid and heparin. General debility. CONT PT Problems: Consultation Date/Type/Reason Admit Date/Time Oct 09, 2016 at 16:20 Initial Consult Date 10/10/16 Type of Consultation: 10.10.16 Referring Provider: MEGAN FLORES DO 24 HR Interval Summary Free Text/Dictation ALL NOTED D/W FAMILY RE MRI Exam/Review of Systems Vital Signs Vitals Vital Signs Date Time Temp Pulse Resp B/P Pulse Ox O2 Delivery O2 Flow Rate FiO2 10/14/16 07:47 98.1 77 18 106/76 98 10/10/16 22:06 Room Air Intake and Output 10/13/16 10/13/16 10/14/16 15:00 23:00 07:00 Intake Total 1950 ml 360 ml 1150 ml Output Total 2 ml Balance 1948 ml 360 ml 1150 ml Exam HEENT: Head is normocephalic. NECK: Supple. HEART: Regular rate. LUNGS: Show diminished breath sounds at base. ABDOMEN: Soft, nontender to palpation without rebound or guarding. EXTREMITIES: Negative for clubbing, cyanosis, edema. DERMATOLOGIC: No rashes. MUSCULOSKELETAL: No joint effusions. NEUROLOGIC: No change in exam. Results Result Diagram: 10/10/16 0657 10/10/16 0657 Medications Medications Current Medications Acetaminophen (Tylenol Tab) 650 mg Q4H PRN PO FOR PAIN 1-5/; Start 10/09/16 at 19:30 Apixaban (Eliquis) 5 mg BID PO Last administered on 10/14/16 08:20; Admin Dose 5 MG; Start 10/09/16 at 21:00 Atorvastatin Calcium (Lipitor) 80 mg QHS PO Last administered on 10/13/16 21: 09; Admin Dose 80 MG; Start 10/09/16 at 21:00 Docusate Sodium (Colace Liquid Cup) 100 mg BID PO Last administered on 08:20; Admin Dose 100 MG; Start 10/09/16 at 21:00 Escitalopram Oxalate (Lexapro) 10 mg QHS PO Last administered on 10/13/16 21: 09; Admin Dose 10 MG; Start 10/09/16 at 21:00 Famotidine (Pepcid) 20 mg DAILY@09 PO Last administered on 10/14/16 08:24; Admin Dose 20 MG; Start 10/10/16 at 09:00 Metoprolol Tartrate (Lopressor) 12.5 mg BID PO Last administered on 10/13/16 21:09; Admin Dose 12.5 MG; Start 10/09/16 at 21:00 Polyethylene Glycol (Miralax) 17 gm DAILY PO Last administered on 10/14/16 08: 20; Admin Dose 17 GM; Start 10/10/16 at 09:00 Senna (Senokot) 1 tab HS PO Last administered on 10/13/16 21:09; Admin Dose 1 TAB; Start 10/09/16 at 21:00 Bisacodyl (Dulcolax Supp) 10 mg DAILY PRN [place] CONSTIPATION; Start 10/09/16 at 19 :30 Magnesium Hydroxide (Milk Of Mag) 30 ml BID PRN PO CONSTIPATION; Start at 19:30 Lactulose (Enulose) 20 gm DAILY PRN PO CONSTIPATION; Start 10/09/16 at 19:30 Temazepam (Restoril) 15 mg HS PRN PO INSOMNIA Last administered on 10/11/16 20 :38; Admin Dose 15 MG; Start 10/10/16 at 01:55 Multivitamins/ Minerals (Theragran-M) 1 tab DAILY PO Last administered on 08:20; Admin Dose 1 TAB; Start 10/10/16 at 09:00 Lisinopril (Zestril) 5 mg DAILY PO Last administered on 10/13/16 09:23; Admin Dose 5 MG; Start 10/10/16 at 09:00 Al Hydroxide/Mg Trisilicate (Gaviscon) 1 tab TID PRN PO HEARTBURN Last administered on 10/14/16 01:50; Admin Dose 1 TAB; Start 10/10/16 at 02:00 Simethicone (Mylicon) 160 mg TID PRN PO DISTENSION/GAS/BLOATING; Start at 15:00 TERRA RANGEL MD Oct 14, 2016 12:37
--- NOTE | 2016-10-14 12:45 | CONS ---
Date/Time of Note Date/Time of Note DATE: 10/14/16 TIME: 12:44 Consult Date/Type/Reason Admit Date/Time Oct 09, 2016 at 16:20 Initial Consult Date 10/10/16 Type of Consultation: 10.10.16 Ordering Provider: MEGAN FLORES DO Subjective Comfortable Objective pulm-cta abd- soft min/mod ambulation Vital Signs Date Time Temp Pulse Resp B/P Pulse Ox O2 Delivery O2 Flow Rate FiO2 10/14/16 07:47 98.1 77 18 106/76 98 10/10/16 22:06 Room Air Intake and Output 10/13/16 10/13/16 10/14/16 14:59 22:59 06:59 Intake Total 1950 ml 360 ml 1150 ml Output Total 2 ml Balance 1948 ml 360 ml 1150 ml Results/Medications Result Diagram: 10/10/16 0657 10/10/16 0657 Medications Current Medications Acetaminophen (Tylenol Tab) 650 mg Q4H PRN PO FOR PAIN -11/04; Start 10/09/16 at 19:30 Apixaban (Eliquis) 5 mg BID PO Last administered on 10/14/16 08:20; Admin Dose 5 MG; Start 10/09/16 at 21:00 Atorvastatin Calcium (Lipitor) 80 mg QHS PO Last administered on 10/13/16 21: 09; Admin Dose 80 MG; Start 10/09/16 at 21:00 Docusate Sodium (Colace Liquid Cup) 100 mg BID PO Last administered on 08:20; Admin Dose 100 MG; Start 10/09/16 at 21:00 Escitalopram Oxalate (Lexapro) 10 mg QHS PO Last administered on 10/13/16 21: 09; Admin Dose 10 MG; Start 10/09/16 at 21:00 Famotidine (Pepcid) 20 mg DAILY@09 PO Last administered on 10/14/16 08:24; Admin Dose 20 MG; Start 10/10/16 at 09:00 Metoprolol Tartrate (Lopressor) 12.5 mg BID PO Last administered on 10/13/16 21:09; Admin Dose 12.5 MG; Start 10/09/16 at 21:00 Polyethylene Glycol (Miralax) 17 gm DAILY PO Last administered on 10/14/16 08: 20; Admin Dose 17 GM; Start 10/10/16 at 09:00 Senna (Senokot) 1 tab HS PO Last administered on 10/13/16 21:09; Admin Dose 1 TAB; Start 10/09/16 at 21:00 Bisacodyl (Dulcolax Supp) 10 mg DAILY PRN [place] CONSTIPATION; Start 10/09/16 at 19 :30 Magnesium Hydroxide (Milk Of Mag) 30 ml BID PRN PO CONSTIPATION; Start at 19:30 Lactulose (Enulose) 20 gm DAILY PRN PO CONSTIPATION; Start 10/09/16 at 19:30 Temazepam (Restoril) 15 mg HS PRN PO INSOMNIA Last administered on 10/11/16 20 :38; Admin Dose 15 MG; Start 10/10/16 at 01:55 Multivitamins/ Minerals (Theragran-M) 1 tab DAILY PO Last administered on 08:20; Admin Dose 1 TAB; Start 10/10/16 at 09:00 Lisinopril (Zestril) 5 mg DAILY PO Last administered on 10/13/16 09:23; Admin Dose 5 MG; Start 10/10/16 at 09:00 Al Hydroxide/Mg Trisilicate (Gaviscon) 1 tab TID PRN PO HEARTBURN Last administered on 10/14/16 01:50; Admin Dose 1 TAB; Start 10/10/16 at 02:00 Simethicone (Mylicon) 160 mg TID PRN PO DISTENSION/GAS/BLOATING; Start at 15:00 Assessment/Plan Additional Assessment/Plan Rehab- Right infarct cerebrovascular accident with left-sided weakness. Continue rehab therapy. LUE support when OOB Rt acetab mass- Enhancing, enhancing mass located posterior to the right acetabulum on MRI. F/B heme/onc Dysphagia-speech Status post laparoscopic repair of abdominal hernia. Coronary artery disease. Hypertension. Dyslipidemia. FARIDEH COOK MD Oct 14, 2016 12:45
[2016-10-14] MEDS: TEMAZEPAM 15 MG CAP PO PRN (20:38)
[2016-10-14] MEDS: ATORVASTATIN 80 MG TAB PO SCH (20:38)
[2016-10-14] MEDS: ESCITALOPRAM 10 MG TAB PO SCH (20:38)
[2016-10-14] MEDS: SENNA TAB PO SCH (20:38)
[2016-10-15] MEDS: AL HYDROX/MG TRISILICATE TAB PO PRN (02:21)
[2016-10-15 08:00] VITALS: BP 140/74; PULSE 73; RESP 18
[2016-10-15] MEDS: DOCUSATE SODIUM 10 MG/ML (10ML CUP) PO SCH ×2 (08:34→21:00)
[2016-10-15] MEDS: MULTIVITAMINS/MINERALS TAB PO SCH (08:34)
[2016-10-15] MEDS: POLYETHYLENE GLYCOL 17 GM PACKET PO SCH (08:34)
[2016-10-15] MEDS: METOPROLOL 25 MG TAB PO SCH ×2 (08:35→20:53)
[2016-10-15] MEDS: LISINOPRIL 5 MG TAB PO SCH (08:36)
[2016-10-15] MEDS: FAMOTIDINE 20 MG TAB PO SCH (08:36)
[2016-10-15] MEDS: APIXABAN 5 MG TABLET PO SCH ×2 (08:36→20:51)
--- NOTE | 2016-10-15 10:36 | PN ---
DATE: 10/15/2016 SUBJECTIVE: The patient is stable. No events overnight. No fevers, chills, nausea or vomiting. OBJECTIVE: VITAL SIGNS: Blood pressure is 140/74, respirations 18, pulse 73, temperature 98.1. HEENT: Head is normocephalic. NECK: Supple. HEART: Regular rate. LUNGS: Showed diminished breath sounds at the base. ABDOMEN: Soft, nontender to palpation. No rebound or guarding. EXTREMITIES: Negative for clubbing or cyanosis. No edema. DERMATOLOGIC: No rashes. MUSCULOSKELETAL: Have no joint effusion. NEUROLOGIC: No change in exam. MEDICATIONS: The patient's medications have been reviewed. LABORATORY DATA: Has been reviewed. No new labs. ASSESSMENT AND PLAN: 1. Incarcerated abdominal hernia, status post laparoscopic repair. The patient is status post lysi s of adhesions, postop day #10. Continue physical therapy. 2. Pelvic mass. Questionable neuroendocrine tumor. I have discussed the case with the patient's s on, Dev. Will follow up with Dr. Huntley to determine if biopsy will be pursued. 3. History of cerebrovascular accident with left-sided hemiparesis. Continue Eliquis. 4. Coronary artery disease. Continue medical management. 5. Hypertension. Continue the current blood pressure regimen. 6. Dyslipidemia. Continue statin therapy. 7. Anemia. Continue to monitor hemoglobin and hematocrit levels. 8. General debility. Continue physical therapy. 9. Gastrointestinal and deep venous thrombosis prophylaxis. Continue PPI and Eliquis. Dictated By: MEGAN SILVA/JOSÉ ANTONIO Conf#: [id number] DID#: [id number]
--- NOTE | 2016-10-15 12:14 | CONS ---
Date/Time of Note Date/Time of Note DATE: 10/15/16 TIME: 12:13 Consult Date/Type/Reason Admit Date/Time Oct 09, 2016 at 16:20 Initial Consult Date 10/10/16 Type of Consultation: 10.10.16 Ordering Provider: MEGAN FLORES DO Subjective Doing well, no complaints Objective pulm-cta abd- soft Vital Signs Date Time Temp Pulse Resp B/P Pulse Ox O2 Delivery O2 Flow Rate FiO2 10/15/16 08:00 98.1 73 18 140/74 99 Room Air Intake and Output 10/14/16 10/14/16 10/15/16 14:59 22:59 06:59 Intake Total 720 ml 840 ml Output Total 600 ml Balance 720 ml 840 ml -600 ml Results/Medications Medications Current Medications Acetaminophen (Tylenol Tab) 650 mg Q4H PRN PO FOR PAIN 1-11/04; Start 10/09/16 at 19:30 Apixaban (Eliquis) 5 mg BID PO Last administered on 10/15/16 08:36; Admin Dose 5 MG; Start 10/09/16 at 21:00 Atorvastatin Calcium (Lipitor) 80 mg QHS PO Last administered on 10/14/16 20: 38; Admin Dose 80 MG; Start 10/09/16 at 21:00 Docusate Sodium (Colace Liquid Cup) 100 mg BID PO Last administered on 08:34; Admin Dose 100 MG; Start 10/09/16 at 21:00 Escitalopram Oxalate (Lexapro) 10 mg QHS PO Last administered on 10/14/16 20: 38; Admin Dose 10 MG; Start 10/09/16 at 21:00 Famotidine (Pepcid) 20 mg DAILY@09 PO Last administered on 10/15/16 08:36; Admin Dose 20 MG; Start 10/10/16 at 09:00 Metoprolol Tartrate (Lopressor) 12.5 mg BID PO Last administered on 10/15/16 08:35; Admin Dose 12.5 MG; Start 10/09/16 at 21:00 Polyethylene Glycol (Miralax) 17 gm DAILY PO Last administered on 10/15/16 08: 34; Admin Dose 17 GM; Start 10/10/16 at 09:00 Senna (Senokot) 1 tab HS PO Last administered on 10/14/16 20:38; Admin Dose 1 TAB; Start 10/09/16 at 21:00 Bisacodyl (Dulcolax Supp) 10 mg DAILY PRN [place] CONSTIPATION; Start 10/09/16 at 19 :30 Magnesium Hydroxide (Milk Of Mag) 30 ml BID PRN PO CONSTIPATION; Start at 19:30 Lactulose (Enulose) 20 gm DAILY PRN PO CONSTIPATION; Start 10/09/16 at 19:30 Temazepam (Restoril) 15 mg HS PRN PO INSOMNIA Last administered on 10/14/16 20 :38; Admin Dose 15 MG; Start 10/10/16 at 01:55 Multivitamins/ Minerals (Theragran-M) 1 tab DAILY PO Last administered on 08:34; Admin Dose 1 TAB; Start 10/10/16 at 09:00 Lisinopril (Zestril) 5 mg DAILY PO Last administered on 10/15/16 08:36; Admin Dose 5 MG; Start 10/10/16 at 09:00 Al Hydroxide/Mg Trisilicate (Gaviscon) 1 tab TID PRN PO HEARTBURN Last administered on 10/15/16 02:21; Admin Dose 1 TAB; Start 10/10/16 at 02:00 Simethicone (Mylicon) 160 mg TID PRN PO DISTENSION/GAS/BLOATING; Start at 15:00 Assessment/Plan Additional Assessment/Plan Rehab- Right infarct cerebrovascular accident with left-sided weakness. Case d/w family at bedside. Steady progress. Continue rehab Rt acetab mass- Enhancing, enhancing mass located posterior to the right acetabulum on MRI. F/B heme/onc Dysphagia-speech Status post laparoscopic repair of abdominal hernia. Coronary artery disease. Hypertension. Dyslipidemia. FARIDEH COOK MD Oct 15, 2016 12:14
--- NOTE | 2016-10-15 18:07 | CONS ---
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 Recommend percutaneous CT guided biopsy for confirmation. D/W FAMILY- PT HAD PELVIC MASS 2 YR AGO ON IMAGING STUDIES AT [facility] on CT AP 10.29.15- MASS 4.6 X.4.6 - RELATIVELY STABLE WILL D/W FAMILY - WOULD NOT PUSH BX FOR NOW Multiple uterine myomas. Mild anemia. We will continue to monitor hemoglobin and hematocrit levels. Incarcerated abdominal hernia POST OP History of cerebrovascular accident with left-sided hemiparesis. ON full anticoagulation. History of coronary artery disease, continue medical management. Hypertension. Blood pressure is currently controlled. We will continue to monitor. We will resume blood pressure medications once the patient is tolerating p.o. History of dyslipidemia. Continue statin therapy. Gastrointestinal and deep venous thrombosis prophylaxis. Continue Pepcid and heparin. General debility. CONT PT Problems: Consultation Date/Type/Reason Admit Date/Time Oct 09, 2016 at 16:20 Initial Consult Date 10/10/16 Type of Consultation: 10.10.16 Referring Provider: MEGAN FLORES DO 24 HR Interval Summary Free Text/Dictation SUBJECTIVE: The patient is stable. No events overnight. No fevers, chills, nausea or vomiting. Exam/Review of Systems Vital Signs Vitals Vital Signs Date Time Temp Pulse Resp B/P Pulse Ox O2 Delivery O2 Flow Rate FiO2 10/15/16 08:00 98.1 73 18 140/74 99 Room Air Intake and Output 10/14/16 10/14/16 10/15/16 15:00 23:00 07:00 Intake Total 720 ml 840 ml Output Total 600 ml Balance 720 ml 840 ml -600 ml Exam HEENT: Head is normocephalic. NECK: Supple. HEART: Regular rate. LUNGS: Showed diminished breath sounds at the base. ABDOMEN: Soft, nontender to palpation. No rebound or guarding. EXTREMITIES: Negative for clubbing or cyanosis. No edema. DERMATOLOGIC: No rashes. MUSCULOSKELETAL: Have no joint effusion. NEUROLOGIC: No change in exam. Medications Medications Current Medications Acetaminophen (Tylenol Tab) 650 mg Q4H PRN PO FOR PAIN -11/04; Start 10/09/16 at 19:30 Apixaban (Eliquis) 5 mg BID PO Last administered on 10/15/16 08:36; Admin Dose 5 MG; Start 10/09/16 at 21:00 Atorvastatin Calcium (Lipitor) 80 mg QHS PO Last administered on 10/14/16 20: 38; Admin Dose 80 MG; Start 10/09/16 at 21:00 Docusate Sodium (Colace Liquid Cup) 100 mg BID PO Last administered on 08:34; Admin Dose 100 MG; Start 10/09/16 at 21:00 Escitalopram Oxalate (Lexapro) 10 mg QHS PO Last administered on 10/14/16 20: 38; Admin Dose 10 MG; Start 10/09/16 at 21:00 Famotidine (Pepcid) 20 mg DAILY@09 PO Last administered on 10/15/16 08:36; Admin Dose 20 MG; Start 10/10/16 at 09:00 Metoprolol Tartrate (Lopressor) 12.5 mg BID PO Last administered on 10/15/16 08:35; Admin Dose 12.5 MG; Start 10/09/16 at 21:00 Polyethylene Glycol (Miralax) 17 gm DAILY PO Last administered on 10/15/16 08: 34; Admin Dose 17 GM; Start 10/10/16 at 09:00 Senna (Senokot) 1 tab HS PO Last administered on 10/14/16 20:38; Admin Dose 1 TAB; Start 10/09/16 at 21:00 Bisacodyl (Dulcolax Supp) 10 mg DAILY PRN [place] CONSTIPATION; Start 10/09/16 at 19 :30 Magnesium Hydroxide (Milk Of Mag) 30 ml BID PRN PO CONSTIPATION; Start at 19:30 Lactulose (Enulose) 20 gm DAILY PRN PO CONSTIPATION; Start 10/09/16 at 19:30 Temazepam (Restoril) 15 mg HS PRN PO INSOMNIA Last administered on 10/14/16 20 :38; Admin Dose 15 MG; Start 10/10/16 at 01:55 Multivitamins/ Minerals (Theragran-M) 1 tab DAILY PO Last administered on 08:34; Admin Dose 1 TAB; Start 10/10/16 at 09:00 Lisinopril (Zestril) 5 mg DAILY PO Last administered on 10/15/16 08:36; Admin Dose 5 MG; Start 10/10/16 at 09:00 Al Hydroxide/Mg Trisilicate (Gaviscon) 1 tab TID PRN PO HEARTBURN Last administered on 10/15/16 02:21; Admin Dose 1 TAB; Start 10/10/16 at 02:00 Simethicone (Mylicon) 160 mg TID PRN PO DISTENSION/GAS/BLOATING; Start at 15:00 TERRA RANGEL MD Oct 15, 2016 18:07
[2016-10-15 20:00] VITALS: BP 103/53; RESP 18
[2016-10-15] MEDS: ATORVASTATIN 80 MG TAB PO SCH (20:51)
[2016-10-15] MEDS: ESCITALOPRAM 10 MG TAB PO SCH (20:51)
[2016-10-15] MEDS: SENNA TAB PO SCH (21:00)
[2016-10-16 06:47] LABS: ADD SCAN DIFF NO
[2016-10-16 06:58] LABS: BASOPHIL # 0.1 10^3/ul (0.0-0.1); BASOPHILS % 0.6 % (0.0-2.0); EOSINOPHILS # 0.2 10^3/ul (0.0-0.5); EOSINOPHILS % 2.7 % (0.0-7.0); HEMATOCRIT 35.3 % (37.0-47.0); HEMOGLOBIN 11.4 g/dl (12.0-16.0); LYMPHOCYTES # 2.4 10^3/ul (0.8-2.9); MEAN CORPUSCULAR HEMOGLOBIN 29.1 pg (29.0-33.0); MEAN CORPUSCULAR HGB CONC 32.3 g/dl (32.0-37.0); MEAN CORPUSCULAR VOLUME 90.1 fl (82.0-101.0); MEAN PLATELET VOLUME 10.2 fl (7.4-10.4); MONOCYTE # 0.6 10^3/ul (0.3-0.9); MONOCYTES % 7.4 % (0.0-11.0); NEUTROPHIL # 4.9 10^3/ul (1.6-7.5); NEUTROPHILS % 59.7 % (39.0-77.0); PLATELET COUNT 331 10^3/UL (140-415); RED BLOOD COUNT 3.92 10^6/ul (4.20-5.40); RED CELL DISTRIBUTION WIDTH 15.7 % (11.5-14.5); WHITE BLOOD COUNT 8.2 10^3/ul (4.8-10.8)
[2016-10-16 07:55] LABS: CALCIUM 9.2 mg/dl (8.4-10.2); CREATININE 0.57 mg/dl (0.44-1.00); MAGNESIUM 2.3 mg/dl (1.7-2.5); PHOSPHORUS 3.9 mg/dl (2.5-4.9); POTASSIUM 4.4 mmol/L (3.5-5.1)
[2016-10-16] MEDS: POLYETHYLENE GLYCOL 17 GM PACKET PO SCH (09:00)
[2016-10-16] MEDS: METOPROLOL 25 MG TAB PO SCH ×2 (09:00→20:49)
[2016-10-16] MEDS: LISINOPRIL 5 MG TAB PO SCH (09:00)
[2016-10-16] MEDS: DOCUSATE SODIUM 10 MG/ML (10ML CUP) PO SCH ×2 (09:00→20:50)
[2016-10-16] MEDS: FAMOTIDINE 20 MG TAB PO SCH (09:00)
--- NOTE | 2016-10-16 10:44 | PN ---
DATE: 10/16/2016 SUBJECTIVE: The patient is stable. No events overnight. No fevers, chills, nausea or vomiting. OBJECTIVE: VITAL SIGNS: Blood pressure 103/53, respirations 18, pulse 89, temperature 98.2. HEENT: Head is normocephalic. NECK: Supple. HEART: Regular rate. LUNGS: Show diminished breath sounds at the bases. ABDOMEN: Soft, nontender to palpation. No rebound or guarding. EXTREMITIES: Negative for clubbing, cyanosis. No edema. DERMATOLOGIC: No rashes. MUSCULOSKELETAL: No joint effusions. NEUROLOGIC: No change in exam. MEDICATIONS: The patient's medications have been reviewed. LABORATORY DATA: Shows a BMP within normal limits. White count 8.2, hemoglobin 9.4, hematocrit 35. 2, platelet count 331. ASSESSMENT AND PLAN: 1. Incarcerated abdominal hernia, status post laparoscopic repair. The patient is status post lysi s of adhesions. Postop day #11. 2. 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 The case has been discussed with the patient's naomi love and Dr. Huntley. We will follow up with their recommendations. 3. History of cerebrovascular accident with left-sided hemiparesis. Continue Eliquis. 4. Coronary artery disease. Continue medical management. 5. Hypertension. Continue current blood pressure regimen. 6. Dyslipidemia. Continue statin therapy. 7. Anemia. Continue to monitor hemoglobin and hematocrit levels. 8. General debility. Continue PT, OT. 9. Gastrointestinal and deep venous thrombosis prophylaxis. Continue proton pump inhibitor and Ciara elyse. Dictated By: MEGAN SILVA/JOSÉ ANTONIO Conf#: [id number] DID#: [id number]
[2016-10-16] MEDS: MULTIVITAMINS/MINERALS TAB PO SCH (10:51)
[2016-10-16] MEDS: APIXABAN 5 MG TABLET PO SCH ×2 (10:51→20:49)
--- NOTE | 2016-10-16 12:09 | CONS ---
Date/Time of Note Date/Time of Note DATE: 10/16/16 TIME: 12:08 Consult Date/Type/Reason Admit Date/Time Oct 09, 2016 at 16:20 Initial Consult Date 10/10/16 Type of Consultation: 10.10.16 Ordering Provider: MEGAN FLORES DO Subjective Comfortable Objective pulm-cta abd-soft min assist Vital Signs Date Time Temp Pulse Resp B/P Pulse Ox O2 Delivery O2 Flow Rate FiO2 10/15/16 20:00 98.2 89 18 103/53 96 10/15/16 08:00 Room Air Intake and Output 10/15/16 10/15/16 10/16/16 14:59 22:59 06:59 Intake Total 720 ml 200 ml Balance 720 ml 200 ml Results/Medications Result Diagram: 10/16/16 0520 10/16/16 0550 Results 24 hrs Laboratory Tests Test 10/16/16 05:20 10/16/16 05:50 White Blood Count 8.2 Red Blood Count 3.92 L Hemoglobin 11.4 L Hematocrit 35.3 L Mean Corpuscular Volume 90.1 Mean Corpuscular Hemoglobin 29.1 Mean Corpuscular Hemoglobin Concent 32.3 Red Cell Distribution Width 15.7 H Platelet Count 331 Mean Platelet Volume 10.2 Neutrophils % 59.7 Lymphocytes % 29.0 Monocytes % 7.4 Eosinophils % 2.7 Basophils % 0.6 Nucleated Red Blood Cells % 0.0 Neutrophils # 4.9 Lymphocytes # 2.4 Monocytes # 0.6 Eosinophils # 0.2 Basophils # 0.1 Nucleated Red Blood Cells # 0.0 Sodium Level 136 Potassium Level 4.4 Chloride Level 105 Carbon Dioxide Level 24 Anion Gap 11 Blood Urea Nitrogen 15 Creatinine 0.57 Glucose Level 100 Calcium Level 9.2 Phosphorus Level 3.9 Magnesium Level 2.3 Medications Current Medications Acetaminophen (Tylenol Tab) 650 mg Q4H PRN PO FOR PAIN 1-11/04; Start 10/09/16 at 19:30 Apixaban (Eliquis) 5 mg BID PO Last administered on 10/16/16 10:51; Admin Dose 5 MG; Start 10/09/16 at 21:00 Atorvastatin Calcium (Lipitor) 80 mg QHS PO Last administered on 10/15/16 20: 51; Admin Dose 80 MG; Start 10/09/16 at 21:00 Docusate Sodium (Colace Liquid Cup) 100 mg BID PO Last administered on 08:34; Admin Dose 100 MG; Start 10/09/16 at 21:00 Escitalopram Oxalate (Lexapro) 10 mg QHS PO Last administered on 10/15/16 20: 51; Admin Dose 10 MG; Start 10/09/16 at 21:00 Famotidine (Pepcid) 20 mg DAILY@09 PO Last administered on 10/16/16 09:00; Admin Dose 20 MG; Start 10/10/16 at 09:00 Metoprolol Tartrate (Lopressor) 12.5 mg BID PO Last administered on 10/15/16 20:53; Admin Dose 12.5 MG; Start 10/09/16 at 21:00 Polyethylene Glycol (Miralax) 17 gm DAILY PO Last administered on 10/15/16 08: 34; Admin Dose 17 GM; Start 10/10/16 at 09:00 Senna (Senokot) 1 tab HS PO Last administered on 10/14/16 20:38; Admin Dose 1 TAB; Start 10/09/16 at 21:00 Bisacodyl (Dulcolax Supp) 10 mg DAILY PRN [place] CONSTIPATION; Start 10/09/16 at 19 :30 Magnesium Hydroxide (Milk Of Mag) 30 ml BID PRN PO CONSTIPATION; Start at 19:30 Lactulose (Enulose) 20 gm DAILY PRN PO CONSTIPATION; Start 10/09/16 at 19:30 Temazepam (Restoril) 15 mg HS PRN PO INSOMNIA Last administered on 10/14/16 20 :38; Admin Dose 15 MG; Start 10/10/16 at 01:55 Multivitamins/ Minerals (Theragran-M) 1 tab DAILY PO Last administered on 10:51; Admin Dose 1 TAB; Start 10/10/16 at 09:00 Lisinopril (Zestril) 5 mg DAILY PO Last administered on 10/15/16 08:36; Admin Dose 5 MG; Start 10/10/16 at 09:00 Al Hydroxide/Mg Trisilicate (Gaviscon) 1 tab TID PRN PO HEARTBURN Last administered on 10/15/16 02:21; Admin Dose 1 TAB; Start 10/10/16 at 02:00 Simethicone (Mylicon) 160 mg TID PRN PO DISTENSION/GAS/BLOATING Last administered on 10/15/16t 23:34; Admin Dose 160 MG; Start 10/12/16 at 15:00 Assessment/Plan Additional Assessment/Plan Rehab- Right infarct cerebrovascular accident with left-sided weakness. Continue rehab program Rt acetab mass- Enhancing, enhancing mass located posterior to the right acetabulum on MRI. F/B heme/onc Dysphagia-speech Status post laparoscopic repair of abdominal hernia. Coronary artery disease. Hypertension. Dyslipidemia. FARIDEH COOK MD Oct 16, 2016 12:09
[2016-10-16 20:22] VITALS: BP 120/74; RESP 18
[2016-10-16] MEDS: ESCITALOPRAM 10 MG TAB PO SCH (20:49)
[2016-10-16] MEDS: ATORVASTATIN 80 MG TAB PO SCH (20:49)
[2016-10-16] MEDS: SENNA TAB PO SCH (20:50)
[2016-10-17] MEDS: AL HYDROX/MG TRISILICATE TAB PO PRN ×2 (00:41→21:00)
[2016-10-17] MEDS: POLYETHYLENE GLYCOL 17 GM PACKET PO SCH (08:41)
[2016-10-17] MEDS: DOCUSATE SODIUM 10 MG/ML (10ML CUP) PO SCH ×2 (08:41→20:10)
[2016-10-17] MEDS: APIXABAN 5 MG TABLET PO SCH ×2 (08:41→20:09)
[2016-10-17] MEDS: MULTIVITAMINS/MINERALS TAB PO SCH (08:41)
[2016-10-17] MEDS: METOPROLOL 25 MG TAB PO SCH ×2 (08:43→20:10)
[2016-10-17] MEDS: FAMOTIDINE 20 MG TAB PO SCH (08:43)
[2016-10-17] MEDS: LISINOPRIL 5 MG TAB PO SCH (08:44)
--- NOTE | 2016-10-17 09:11 | CONS ---
Date/Time of Note Date/Time of Note DATE: 10/17/16 TIME: 09:11 Consult Date/Type/Reason Admit Date/Time Oct 09, 2016 at 16:20 Initial Consult Date 10/10/16 Type of Consultation: 10.10.16 Ordering Provider: MEGAN FLORES DO Subjective Comfortable Objective pulm-cta mod assist ambulation Vital Signs Date Time Temp Pulse Resp B/P Pulse Ox O2 Delivery O2 Flow Rate FiO2 10/16/16 20:22 99.0 93 18 120/74 95 10/15/16 08:00 Room Air Intake and Output 10/16/16 10/16/16 10/17/16 15:00 23:00 07:00 Intake Total 960 ml 1000 ml 150 ml Output Total 1 ml Balance 959 ml 1000 ml 150 ml Results/Medications Result Diagram: 10/16/16 0520 10/16/16 0550 Results 24 hrs Laboratory Tests Test 10/17/16 02:02 Bedside Glucose 110 Medications Current Medications Acetaminophen (Tylenol Tab) 650 mg Q4H PRN PO FOR PAIN -11/04; Start 10/09/16 at 19:30 Apixaban (Eliquis) 5 mg BID PO Last administered on 10/17/16 08:41; Admin Dose 5 MG; Start 10/09/16 at 21:00 Atorvastatin Calcium (Lipitor) 80 mg QHS PO Last administered on 10/16/16 20: 49; Admin Dose 80 MG; Start 10/09/16 at 21:00 Docusate Sodium (Colace Liquid Cup) 100 mg BID PO Last administered on 08:41; Admin Dose 100 MG; Start 10/09/16 at 21:00 Escitalopram Oxalate (Lexapro) 10 mg QHS PO Last administered on 10/16/16 20: 49; Admin Dose 10 MG; Start 10/09/16 at 21:00 Famotidine (Pepcid) 20 mg DAILY@09 PO Last administered on 10/17/16 08:43; Admin Dose 20 MG; Start 10/10/16 at 09:00 Metoprolol Tartrate (Lopressor) 12.5 mg BID PO Last administered on 10/15/16 20:53; Admin Dose 12.5 MG; Start 10/09/16 at 21:00 Polyethylene Glycol (Miralax) 17 gm DAILY PO Last administered on 10/17/16 08: 41; Admin Dose 17 GM; Start 10/10/16 at 09:00 Senna (Senokot) 1 tab HS PO Last administered on 10/14/16 20:38; Admin Dose 1 TAB; Start 10/09/16 at 21:00 Bisacodyl (Dulcolax Supp) 10 mg DAILY PRN [place] CONSTIPATION; Start 10/09/16 at 19 :30 Magnesium Hydroxide (Milk Of Mag) 30 ml BID PRN PO CONSTIPATION; Start at 19:30 Lactulose (Enulose) 20 gm DAILY PRN PO CONSTIPATION; Start 10/09/16 at 19:30 Temazepam (Restoril) 15 mg HS PRN PO INSOMNIA Last administered on 10/14/16 20 :38; Admin Dose 15 MG; Start 10/10/16 at 01:55 Multivitamins/ Minerals (Theragran-M) 1 tab DAILY PO Last administered on 08:41; Admin Dose 1 TAB; Start 10/10/16 at 09:00 Lisinopril (Zestril) 5 mg DAILY PO Last administered on 10/15/16 08:36; Admin Dose 5 MG; Start 10/10/16 at 09:00 Al Hydroxide/Mg Trisilicate (Gaviscon) 1 tab TID PRN PO HEARTBURN Last administered on 10/17/16 00:41; Admin Dose 1 TAB; Start 10/10/16 at 02:00 Simethicone (Mylicon) 160 mg TID PRN PO DISTENSION/GAS/BLOATING Last administered on 10/15/16 23:34; Admin Dose 160 MG; Start 10/12/16 at 15:00 Assessment/Plan Additional Assessment/Plan Rehab- Right infarct cerebrovascular accident with left-sided weakness. Continue rehab therapies Rt acetab mass- Enhancing, enhancing mass located posterior to the right acetabulum on MRI. F/B heme/onc Dysphagia-speech Status post laparoscopic repair of abdominal hernia- pain improving. Coronary artery disease. Hypertension. Dyslipidemia. FARIDEH COOK MD Oct 17, 2016 09:11
--- NOTE | 2016-10-17 12:04 | PN ---
DATE: 10/17/2016 SUBJECTIVE: The patient is stable, no acute events overnight. No fevers, chills, nausea, vomiting. OBJECTIVE: VITAL SIGNS: Blood pressure 120/74, respirations ____, pulse 93, temperature 99.0. HEENT: Head is normocephalic. NECK: Supple. HEART: Regular rate. LUNGS: Show diminished breath sounds at base. ABDOMEN: Soft, nontender to palpation without rebound or guarding. EXTREMITIES: Negative for clubbing, cyanosis, or edema. DERMATOLOGIC: No rashes. MUSCULOSKELETAL: No joint effusions. NEUROLOGIC: No change in exam. MEDICATIONS: The patient's medications have been reviewed. LABORATORY DATA: Have been reviewed. No new labs. ASSESSMENT AND PLAN: 1. Incarcerated abdominal hernia status post laparoscopic repair. The patient is currently stable. Continue PT, OT. 2. Pelvic mass, questionable neuroendocrine tumor. The case has been discussed with family. Will follow up with Dr. Huntley for recommendations. 3. History of cerebrovascular accident with left-sided hemiparesis. Continue medical management. 4. Coronary artery disease. Continue current treatment plan. 5. Hypertension. Blood pressure is controlled with current regimen. 6. Dyslipidemia. Continue statin therapy. 7. Anemia. Continue to monitor hemoglobin and hematocrit levels. 8. General debility. Continue PT, OT. 9. Gastrointestinal and deep venous thrombosis prophylaxis. Continue proton pump inhibitor and Ciara elyse. Dictated By: MEGAN SILVA/JOSÉ ANTONIO Conf#: [id number] DID#: [id number]
[2016-10-17 16:00] VITALS: BP 110/62; PULSE 80; RESP 18
[2016-10-17 20:06] VITALS: BP 116/59; RESP 21
[2016-10-17] MEDS: SENNA TAB PO SCH (20:09)
[2016-10-17] MEDS: ESCITALOPRAM 10 MG TAB PO SCH (20:09)
[2016-10-17] MEDS: ATORVASTATIN 80 MG TAB PO SCH (20:10)
[2016-10-18 08:00] VITALS: BP 122/63; PULSE 83; RESP 20
[2016-10-18] MEDS: APIXABAN 5 MG TABLET PO SCH ×2 (08:54→20:29)
[2016-10-18] MEDS: MULTIVITAMINS/MINERALS TAB PO SCH (08:54)
[2016-10-18] MEDS: POLYETHYLENE GLYCOL 17 GM PACKET PO SCH (08:54)
[2016-10-18] MEDS: DOCUSATE SODIUM 10 MG/ML (10ML CUP) PO SCH ×2 (08:54→20:35)
[2016-10-18] MEDS: LISINOPRIL 5 MG TAB PO SCH (08:55)
[2016-10-18] MEDS: METOPROLOL 25 MG TAB PO SCH ×2 (08:55→20:29)
[2016-10-18] MEDS: FAMOTIDINE 20 MG TAB PO SCH (08:57)
--- NOTE | 2016-10-18 11:17 | PN ---
DATE: 10/18/2016 SUBJECTIVE: The patient is stable, no acute events overnight. No fevers, chills, nausea or vomitin g. No shortness of breath. OBJECTIVE: VITAL SIGNS: Blood pressure 116/59, respiration 21, pulse is 80, temperature 97.8. HEENT: Head is normocephalic. NECK: Supple. HEART: Regular rate. LUNGS: Show diminished breath sounds at the base. ABDOMEN: Soft, nontender to palpation without rebound or guarding. EXTREMITIES: Negative for clubbing, cyanosis, no edema. DERMATOLOGIC: No rashes. MUSCULOSKELETAL: No joint effusions. NEUROLOGIC: No change in exam. MEDICATIONS: The patient's medications are reviewed. LABORATORY DATA: Reviewed. ASSESSMENT AND PLAN: 1. Incarcerated abdominal hernia status post laparoscopic repair. The patient is currently stable. Continue physical therapy/occupational therapy. 2. Pelvic mass, questionable neuroendocrine tumor. Case has been discussed with family and will fo llow up with Dr. Huntley for recommendations. 3. Cerebrovascular accident with left-sided hemiparesis. Continue medical management. 4. Coronary artery disease. Continue current treatment plan. 5. Hypertension. Continue current blood pressure regimen. 6. Dyslipidemia. Continue statin therapy. 7. Anemia. Continue to monitor hemoglobin and hematocrit levels. 8. Episodes of flatus. Continue Gas-X. 9. General debility. Continue physical therapy/occupational Therapy. 10. Gastrointestinal and deep venous thrombosis prophylaxis. Give PPI and Eliquis. Dictated By: MEGAN SILVA/JOSÉ ANTONIO Conf#: [id number] DID#: [id number]
[2016-10-18 19:29] VITALS: BP 119/64; RESP 20
[2016-10-18] MEDS: SENNA TAB PO SCH (20:29)
[2016-10-18] MEDS: AL HYDROX/MG TRISILICATE TAB PO PRN (20:29)
[2016-10-18] MEDS: ATORVASTATIN 80 MG TAB PO SCH (20:29)
[2016-10-18] MEDS: ESCITALOPRAM 10 MG TAB PO SCH (20:29)
[2016-10-19 07:30] VITALS: BP 144/84; RESP 18
[2016-10-19] MEDS: DOCUSATE SODIUM 10 MG/ML (10ML CUP) PO SCH ×2 (08:17→21:00)
[2016-10-19] MEDS: LISINOPRIL 5 MG TAB PO SCH (08:18)
[2016-10-19] MEDS: MULTIVITAMINS/MINERALS TAB PO SCH (08:18)
[2016-10-19] MEDS: FAMOTIDINE 20 MG TAB PO SCH (08:18)
[2016-10-19] MEDS: POLYETHYLENE GLYCOL 17 GM PACKET PO SCH (08:18)
[2016-10-19] MEDS: METOPROLOL 25 MG TAB PO SCH ×2 (08:19→20:35)
[2016-10-19] MEDS: APIXABAN 5 MG TABLET PO SCH ×2 (08:19→20:34)
--- NOTE | 2016-10-19 09:39 | CONS ---
Date/Time of Note Date/Time of Note DATE: 10/19/16 TIME: 09:39 Consult Date/Type/Reason Admit Date/Time Oct 09, 2016 at 16:20 Initial Consult Date 10/10/16 Type of Consultation: ..17 Ordering Provider: MEGAN FLORES DO Objective Vital Signs Date Time Temp Pulse Resp B/P Pulse Ox O2 Delivery O2 Flow Rate FiO2 10/19/16 07:30 98.1 69 18 144/84 100 10/18/16 08:00 Room Air Intake and Output 10/18/16 10/18/16 10/19/16 15:00 23:00 07:00 Intake Total 400 ml 240 ml Output Total 350 ml Balance 50 ml 240 ml INTERDISCIPLINARY TEAM CONFERENCE BOWEL- Cont BLADDER-Cont SKIN- intact OT- DRESSING-min/mod BATHING-min/mod TOILETING-min/mod PT- BED MOBILITY-mod TRANSFERS-mod AMBULATION-mod 60 feet SPEECH- COGNITION-HI DYPHAGIA- mech soft A/P- Interdisciplinary team conference held today. Please see interdisciplinary sheet. Working toward d.c. on 10/28 with post discharge follow up of physical therapy, occupational therapy. Results/Medications Result Diagram: 10/16/16 0520 10/16/16 0550 Medications Current Medications Acetaminophen (Tylenol Tab) 650 mg Q4H PRN PO FOR PAIN -11/04; Start 10/09/16 at 19:30 Apixaban (Eliquis) 5 mg BID PO Last administered on 10/19/16 08:19; Admin Dose 5 MG; Start 10/09/16 at 21:00 Atorvastatin Calcium (Lipitor) 80 mg QHS PO Last administered on 10/18/16 20: 29; Admin Dose 80 MG; Start 10/09/16 at 21:00 Docusate Sodium (Colace Liquid Cup) 100 mg BID PO Last administered on 08:17; Admin Dose 100 MG; Start 10/09/16 at 21:00 Escitalopram Oxalate (Lexapro) 10 mg QHS PO Last administered on 10/18/16 20: 29; Admin Dose 10 MG; Start 10/09/16 at 21:00 Famotidine (Pepcid) 20 mg DAILY@09 PO Last administered on 10/19/16 08:18; Admin Dose 20 MG; Start 10/10/16 at 09:00 Metoprolol Tartrate (Lopressor) 12.5 mg BID PO Last administered on 10/19/16 08:19; Admin Dose 12.5 MG; Start 10/09/16 at 21:00 Polyethylene Glycol (Miralax) 17 gm DAILY PO Last administered on 10/19/16 08: 18; Admin Dose 17 GM; Start 10/10/16 at 09:00 Senna (Senokot) 1 tab HS PO Last administered on 10/18/16 20:29; Admin Dose 1 TAB; Start 10/09/16 at 21:00 Bisacodyl (Dulcolax Supp) 10 mg DAILY PRN [place] CONSTIPATION; Start 10/09/16 at 19 :30 Magnesium Hydroxide (Milk Of Mag) 30 ml BID PRN PO CONSTIPATION; Start at 19:30 Lactulose (Enulose) 20 gm DAILY PRN PO CONSTIPATION; Start 10/09/16 at 19:30 Temazepam (Restoril) 15 mg HS PRN PO INSOMNIA Last administered on 10/14/16 20 :38; Admin Dose 15 MG; Start 10/10/16 at 01:55 Multivitamins/ Minerals (Theragran-M) 1 tab DAILY PO Last administered on 08:18; Admin Dose 1 TAB; Start 10/10/16 at 09:00 Lisinopril (Zestril) 5 mg DAILY PO Last administered on 10/19/16 08:18; Admin Dose 5 MG; Start 10/10/16 at 09:00 Al Hydroxide/Mg Trisilicate (Gaviscon) 1 tab TID PRN PO HEARTBURN Last administered on 10/18/16 20:29; Admin Dose 1 TAB; Start 10/10/16 at 02:00 Simethicone (Mylicon) 160 mg TID PRN PO DISTENSION/GAS/BLOATING Last administered on 10/15/16 23:34; Admin Dose 160 MG; Start 10/12/16 at 15:00 FARIDEH COOK MD Oct 19, 2016 09:39
--- NOTE | 2016-10-19 11:38 | PN ---
DATE: 10/19/2016 SUBJECTIVE: The patient is stable. No events overnight. No fevers, chills, nausea, vomiting. No s hortness of breath. OBJECTIVE: VITAL SIGNS: Blood pressure 144/84, respiration 18, pulse 69, temperature 98.1. HEENT: Head is normocephalic. NECK: Supple. HEART: Regular rate. LUNGS: Show diminished breath sounds at the base. ABDOMEN: Soft, nontender to palpation without rebound or guarding. EXTREMITIES: Negative for clubbing, cyanosis. No edema. DERMATOLOGIC: No rashes. MUSCULOSKELETAL: No joint effusions. NEUROLOGIC: No change in exam. MEDICATIONS: The patient's medications have been reviewed. LABORATORY DATA: Have been reviewed. ASSESSMENT AND PLAN: 1. Incarcerated abdominal hernia status post laparoscopic repair. The patient is currently stable. Continue PT, OT. 2. Pelvic mass with possible neuroendocrine tumor. The patient's case has been discussed with naomi love. We will follow up with Dr. Huntley recommendations. No plan for biopsy at this time. 3. Cerebrovascular accident with left-sided hemiparesis. Continue medical management. 4. Chronic disease. Continue current treatment plan. 5. Hypertension. Continue current blood pressure regimen. 6. Dyslipidemia. Continue statin therapy. 7. Anemia. Continue to monitor hemoglobin and hematocrit levels. 8. General debility. Continue PT, OT. 9. Gastrointestinal and DVT prophylaxis. Continue PPI and Eliquis. Dictated By: MEGAN SILVA/JOSÉ ANTONIO Conf#: [id number] DID#: [id number]
[2016-10-19 20:15] VITALS: BP 114/65; RESP 18
[2016-10-19] MEDS: ATORVASTATIN 80 MG TAB PO SCH (20:34)
[2016-10-19] MEDS: ESCITALOPRAM 10 MG TAB PO SCH (20:34)
[2016-10-19] MEDS: AL HYDROX/MG TRISILICATE TAB PO PRN (20:40)
[2016-10-19] MEDS: SENNA TAB PO SCH (21:00)
[2016-10-20 07:30] LABS: ADD SCAN DIFF NO
[2016-10-20 07:39] LABS: BASOPHIL # 0.1 10^3/ul (0.0-0.1); BASOPHILS % 0.9 % (0.0-2.0); EOSINOPHILS # 0.2 10^3/ul (0.0-0.5); EOSINOPHILS % 2.3 % (0.0-7.0); HEMOGLOBIN 11.1 g/dl (12.0-16.0); LYMPHOCYTES # 2.7 10^3/ul (0.8-2.9); LYMPHOCYTES % 33.4 % (15.0-51.0); MEAN CORPUSCULAR HEMOGLOBIN 28.2 pg (29.0-33.0); MEAN CORPUSCULAR HGB CONC 30.8 g/dl (32.0-37.0); MEAN CORPUSCULAR VOLUME 91.4 fl (82.0-101.0); MEAN PLATELET VOLUME 10.5 fl (7.4-10.4); MONOCYTE # 0.6 10^3/ul (0.3-0.9); MONOCYTES % 7.2 % (0.0-11.0); NEUTROPHIL # 4.6 10^3/ul (1.6-7.5); NEUTROPHILS % 55.8 % (39.0-77.0); PLATELET COUNT 334 10^3/UL (140-415); RED BLOOD COUNT 3.94 10^6/ul (4.20-5.40); RED CELL DISTRIBUTION WIDTH 15.9 % (11.5-14.5); WHITE BLOOD COUNT 8.2 10^3/ul (4.8-10.8)
[2016-10-20 08:00] VITALS: BP 140/69; PULSE 81; RESP 18
[2016-10-20 08:05] LABS: CALCIUM 9.4 mg/dl (8.4-10.2); CREATININE 0.59 mg/dl (0.44-1.00); MAGNESIUM 2.2 mg/dl (1.7-2.5); PHOSPHORUS 3.8 mg/dl (2.5-4.9); POTASSIUM 4.2 mmol/L (3.5-5.1)
[2016-10-20] MEDS: POLYETHYLENE GLYCOL 17 GM PACKET PO SCH (08:24)
[2016-10-20] MEDS: DOCUSATE SODIUM 10 MG/ML (10ML CUP) PO SCH ×2 (08:24→21:32)
[2016-10-20] MEDS: FAMOTIDINE 20 MG TAB PO SCH (08:25)
[2016-10-20] MEDS: LISINOPRIL 5 MG TAB PO SCH (08:25)
[2016-10-20] MEDS: MULTIVITAMINS/MINERALS TAB PO SCH (08:25)
[2016-10-20] MEDS: METOPROLOL 25 MG TAB PO SCH ×2 (08:26→21:00)
[2016-10-20] MEDS: APIXABAN 5 MG TABLET PO SCH ×2 (08:26→21:32)
--- NOTE | 2016-10-20 11:40 | PN ---
DATE: 10/20/2016 SUBJECTIVE: The patient is stable, no acute events overnight. No fevers, chills, nausea, vomiting. OBJECTIVE: VITAL SIGNS: Blood pressure is 140/69, respirations 18, pulse 91, temperature 98.0. HEENT: Head is normocephalic. NECK: Supple. HEART: Regular rate. LUNGS: Show diminished breath sounds at the bases. ABDOMEN: Soft, nontender to palpation. No rebound or guarding. EXTREMITIES: Negative for clubbing, cyanosis. DERMATOLOGIC: No rashes. MUSCULOSKELETAL: No joint effusions. NEUROLOGIC: No change in exam. MEDICATIONS: The patient's medications have been reviewed. LABORATORY DATA: Shows white count 8.2, hemoglobin 9.1, hematocrit 36.0, platelet count 334. BMP w ithin normal limits. ASSESSMENT AND PLAN: 1. Incarcerated abdominal hernia, status post laparoscopic repair. The patient is currently stable . Continue PT, OT. 2. Pelvic mass with possible neuroendocrine tumor. The patient's case has been discussed with naomi love and Dr. Huntley, no further intervention at this time. 3. Cerebrovascular accident with left-sided hemiparesis. Continue medical management. 4. Hypertension. Continue current blood pressure regimen. 5. Dyslipidemia. Continue statin therapy. 6. Anemia. Continue to monitor hemoglobin and hematocrit levels. 7. Gastrointestinal and deep venous thrombosis prophylaxis. Continue proton pump inhibitor and Ciara elyse. 8. General debility. Continue PT, OT. Dictated By: MEGAN SILVA/JOSÉ ANTONIO Conf#: [id number] DID#: [id number]
--- NOTE | 2016-10-20 12:57 | CONS ---
Date/Time of Note Date/Time of Note DATE: 10/20/16 TIME: 12:56 Consult Date/Type/Reason Admit Date/Time Oct 09, 2016 at 16:20 Initial Consult Date 10/10/16 Type of Consultation: 10.10.16 Ordering Provider: MEGAN FLORES DO Subjective "I am better" Objective pulm-cta mod assist ambulation Vital Signs Date Time Temp Pulse Resp B/P Pulse Ox O2 Delivery O2 Flow Rate FiO2 10/20/16 08:00 98.0 81 18 140/69 97 Room Air Intake and Output 10/19/16 10/19/16 10/20/16 15:00 23:00 07:00 Intake Total 420 ml 200 ml Balance 420 ml 200 ml Results/Medications Result Diagram: 10/20/16 0610/20/16 0600 Results 24 hrs Laboratory Tests Test 10/20/16 06:00 White Blood Count 8.2 Red Blood Count 3.94 L Hemoglobin 11.1 L Hematocrit 36.0 L Mean Corpuscular Volume 91.4 Mean Corpuscular Hemoglobin 28.2 L Mean Corpuscular Hemoglobin Concent 30.8 L Red Cell Distribution Width 15.9 H Platelet Count 334 Mean Platelet Volume 10.5 H Neutrophils % 55.8 Lymphocytes % 33.4 Monocytes % 7.2 Eosinophils % 2.3 Basophils % 0.9 Nucleated Red Blood Cells % 0.0 Neutrophils # 4.6 Lymphocytes # 2.7 Monocytes # 0.6 Eosinophils # 0.2 Basophils # 0.1 Nucleated Red Blood Cells # 0.0 Sodium Level 137 Potassium Level 4.2 Chloride Level 107 Carbon Dioxide Level 26 Anion Gap 8 Blood Urea Nitrogen 17 Creatinine 0.59 Glucose Level 92 Calcium Level 9.4 Phosphorus Level 3.8 Magnesium Level 2.2 Medications Current Medications Acetaminophen (Tylenol Tab) 650 mg Q4H PRN PO FOR PAIN 1-5/10; Start 10/09/16 at 19:30 Apixaban (Eliquis) 5 mg BID PO Last administered on 10/20/16 08:26; Admin Dose 5 MG; Start 10/09/16 at 21:00 Atorvastatin Calcium (Lipitor) 80 mg QHS PO Last administered on 10/19/16 20: 34; Admin Dose 80 MG; Start 10/09/16 at 21:00 Docusate Sodium (Colace Liquid Cup) 100 mg BID PO Last administered on 08:24; Admin Dose 100 MG; Start 10/09/16 at 21:00 Escitalopram Oxalate (Lexapro) 10 mg QHS PO Last administered on 10/19/16 20: 34; Admin Dose 10 MG; Start 10/09/16 at 21:00 Famotidine (Pepcid) 20 mg DAILY@09 PO Last administered on 10/20/16 08:25; Admin Dose 20 MG; Start 10/10/16 at 09:00 Metoprolol Tartrate (Lopressor) 12.5 mg BID PO Last administered on 10/20/16 08:26; Admin Dose 12.5 MG; Start 10/09/16 at 21:00 Polyethylene Glycol (Miralax) 17 gm DAILY PO Last administered on 10/20/16 08: 24; Admin Dose 17 GM; Start 10/10/16 at 09:00 Senna (Senokot) 1 tab HS PO Last administered on 10/18/16 20:29; Admin Dose 1 TAB; Start 10/09/16 at 21:00 Bisacodyl (Dulcolax Supp) 10 mg DAILY PRN [place] CONSTIPATION; Start 10/09/16 at 19 :30 Magnesium Hydroxide (Milk Of Mag) 30 ml BID PRN PO CONSTIPATION; Start at 19:30 Lactulose (Enulose) 20 gm DAILY PRN PO CONSTIPATION; Start 10/09/16 at 19:30 Temazepam (Restoril) 15 mg HS PRN PO INSOMNIA Last administered on 10/14/16 20 :38; Admin Dose 15 MG; Start 10/10/16 at 01:55 Multivitamins/ Minerals (Theragran-M) 1 tab DAILY PO Last administered on 08:25; Admin Dose 1 TAB; Start 10/10/16 at 09:00 Lisinopril (Zestril) 5 mg DAILY PO Last administered on 10/20/16 08:25; Admin Dose 5 MG; Start 10/10/16 at 09:00 Al Hydroxide/Mg Trisilicate (Gaviscon) 1 tab TID PRN PO HEARTBURN Last administered on 10/19/16 20:40; Admin Dose 1 TAB; Start 10/10/16 at 02:00 Simethicone (Mylicon) 160 mg TID PRN PO DISTENSION/GAS/BLOATING Last administered on 10/15/16t 23:34; Admin Dose 160 MG; Start 10/12/16 at 15:00 Assessment/Plan Additional Assessment/Plan Rehab- Right infarct cerebrovascular accident with left-sided weakness. Continue rehab therapies. Patient with some increasing tone in L UE, but no volitional strength Rt acetab mass- Enhancing, enhancing mass located posterior to the right acetabulum on MRI. F/B heme/onc Dysphagia-speech Status post laparoscopic repair of abdominal hernia. Coronary artery disease. Hypertension. Dyslipidemia. FARIDEH COOK MD Oct 20, 2016 12:57
[2016-10-20 20:00] VITALS: BP 108/64; RESP 18
[2016-10-20] MEDS: SENNA TAB PO SCH (21:32)
[2016-10-20] MEDS: ATORVASTATIN 80 MG TAB PO SCH (21:32)
[2016-10-20] MEDS: TEMAZEPAM 15 MG CAP PO PRN (21:32)
[2016-10-20] MEDS: ESCITALOPRAM 10 MG TAB PO SCH (21:35)
[2016-10-21 08:00] VITALS: BP 103/68; PULSE 85; RESP 18
[2016-10-21] MEDS: LISINOPRIL 5 MG TAB PO SCH (08:24)
[2016-10-21] MEDS: APIXABAN 5 MG TABLET PO SCH ×2 (08:31→20:29)
[2016-10-21] MEDS: POLYETHYLENE GLYCOL 17 GM PACKET PO SCH (08:31)
[2016-10-21] MEDS: MULTIVITAMINS/MINERALS TAB PO SCH (08:31)
[2016-10-21] MEDS: FAMOTIDINE 20 MG TAB PO SCH (08:31)
[2016-10-21] MEDS: DOCUSATE SODIUM 10 MG/ML (10ML CUP) PO SCH ×2 (08:35→20:42)
[2016-10-21] MEDS: METOPROLOL 25 MG TAB PO SCH ×2 (08:35→20:29)
--- NOTE | 2016-10-21 11:27 | PN ---
DATE: 10/21/2016 SUBJECTIVE: The patient is stable. No acute events overnight. No fevers, chills, nausea or vomiti ng. No shortness of breath. OBJECTIVE: VITAL SIGNS: Blood pressure 103/68, respirations 18, pulse 85, temperature 98.2. HEENT: Head is normocephalic. NECK: Supple. HEART: Regular rate. LUNGS: Show diminished breath sounds at the bases. ABDOMEN: Soft, nontender to palpation. No rebound or guarding. EXTREMITIES: Negative for clubbing, cyanosis. No edema. DERMATOLOGIC: No rashes. MUSCULOSKELETAL: No joint effusions. NEUROLOGIC: No change in exam. MEDICATIONS: The patient's medications have been reviewed. LABORATORY DATA: Has been reviewed. No new labs. ASSESSMENT AND PLAN: 1. Incarcerated abdominal hernia, status post laparoscopic repair. The patient is currently stable . Continue PT, OT. 2. Pelvis mass with possible neuroendocrine tumor. The patient's case has been discussed with the family and Dr. Huntley. No plan for intervention. 3. Cerebrovascular accident with left-sided hemiparesis. Continue medical management. 4. Hypertension. Continue current blood pressure regimen. 5. Dyslipidemia. Continue statin therapy. 6. Anemia. Continue to monitor hemoglobin and hematocrit levels. 7. Gastrointestinal and deep venous thrombosis prophylaxis. Continue proton pump inhibitor and Ciara elyse. 8. General debility. Continue PT, OT. Dictated By: MEGAN SILVA/JOSÉ ANTONIO Conf#: [id number] DID#: [id number]
--- NOTE | 2016-10-21 12:35 | CONS ---
Date/Time of Note Date/Time of Note DATE: 10/21/16 TIME: 12:33 Consult Date/Type/Reason Admit Date/Time Oct 09, 2016 at 16:20 Initial Consult Date 10/10/16 Type of Consultation: 10.10.16 Ordering Provider: MEGAN FLORES DO Objective pulm-cta abd-soft Vital Signs Date Time Temp Pulse Resp B/P Pulse Ox O2 Delivery O2 Flow Rate FiO2 10/21/16 08:00 98.2 85 18 103/68 97 Room Air Intake and Output 10/20/16 10/20/16 10/21/16 15:00 23:00 07:00 Intake Total 750 ml 720 ml 240 ml Balance 750 ml 720 ml 240 ml Results/Medications Result Diagram: 10/20/16 0610/20/16 0600 Medications Current Medications Acetaminophen (Tylenol Tab) 650 mg Q4H PRN PO FOR PAIN 1-11/04; Start 10/09/16 at 19:30 Apixaban (Eliquis) 5 mg BID PO Last administered on 10/21/16 08:31; Admin Dose 5 MG; Start 10/09/16 at 21:00 Atorvastatin Calcium (Lipitor) 80 mg QHS PO Last administered on 10/20/16 21: 32; Admin Dose 80 MG; Start 10/09/16 at 21:00 Docusate Sodium (Colace Liquid Cup) 100 mg BID PO Last administered on 21:32; Admin Dose 100 MG; Start 10/09/16 at 21:00 Escitalopram Oxalate (Lexapro) 10 mg QHS PO Last administered on 10/20/16 21: 35; Admin Dose 10 MG; Start 10/09/16 at 21:00 Famotidine (Pepcid) 20 mg DAILY@09 PO Last administered on 10/21/16 08:31; Admin Dose 20 MG; Start 10/10/16 at 09:00 Metoprolol Tartrate (Lopressor) 12.5 mg BID PO Last administered on 10/20/16 08:26; Admin Dose 12.5 MG; Start 10/09/16 at 21:00 Polyethylene Glycol (Miralax) 17 gm DAILY PO Last administered on 10/21/16 08: 31; Admin Dose 17 GM; Start 10/10/16 at 09:00 Senna (Senokot) 1 tab HS PO Last administered on 10/20/16 21:32; Admin Dose 1 TAB; Start 10/09/16 at 21:00 Bisacodyl (Dulcolax Supp) 10 mg DAILY PRN [place] CONSTIPATION; Start 10/09/16 at 19 :30 Magnesium Hydroxide (Milk Of Mag) 30 ml BID PRN PO CONSTIPATION; Start at 19:30 Lactulose (Enulose) 20 gm DAILY PRN PO CONSTIPATION; Start 10/09/16 at 19:30 Temazepam (Restoril) 15 mg HS PRN PO INSOMNIA Last administered on 10/20/16 21 :32; Admin Dose 15 MG; Start 10/10/16 at 01:55 Multivitamins/ Minerals (Theragran-M) 1 tab DAILY PO Last administered on 08:31; Admin Dose 1 TAB; Start 10/10/16 at 09:00 Lisinopril (Zestril) 5 mg DAILY PO Last administered on 10/20/16 08:25; Admin Dose 5 MG; Start 10/10/16 at 09:00 Al Hydroxide/Mg Trisilicate (Gaviscon) 1 tab TID PRN PO HEARTBURN Last administered on 10/19/16 20:40; Admin Dose 1 TAB; Start 10/10/16 at 02:00 Simethicone (Mylicon) 160 mg TID PRN PO DISTENSION/GAS/BLOATING Last administered on 10/15/16 23:34; Admin Dose 160 MG; Start 10/12/16 at 15:00 Assessment/Plan Additional Assessment/Plan Rehab- 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 Continue rehab program Rt acetab mass- Enhancing, enhancing mass located posterior to the right acetabulum on MRI. F/B heme/onc Dysphagia-speech Status post laparoscopic repair of abdominal hernia. Coronary artery disease. Hypertension. Dyslipidemia. FARIDEH COOK MD Oct 21, 2016 12:34
--- NOTE | 2016-10-21 18:45 | CONS ---
DATE OF ADMISSION: 10/09/2016 DATE OF CONSULTATION: 10/21/2016 TYPE OF CONSULTATION: Psychological. REFERRING PHYSICIAN: Nathan Ramesh MD CONSULTING PSYCHOLOGIST: Sneha Strong, PhD REASON FOR CONSULTATION: This consultation was requested by Dr. Haris Ramesh in order to evaluate the cognitive and emotional functioning of this patient related to her present medical condition. HISTORY OF PRESENT ILLNESS: The patient is an 81-year-old female. The patient does have a history of multiple medical problems. The patient had a recent CVA with left-sided weakness. The patient t jimbo had some other medical problems and then underwent a laparoscopic repair of a hernia. The patie nt was cleared medically and did have impairments in self-care, so was then transferred to the [facility] for rehabilitation. The patient reports being very d epressed. The patient is depressed about her medical condition, but also about the of her you ngramakrishna son who was only 56-year-old, of brain cancer. The patient does have one other son who does h elp with her care. The patient is motivated to get better and does want to return to her previous l evel of functioning. The patient reports that she is very tired and wants to go home. The patient is motivated to help herself do as well as she can. FAMILY AND SOCIAL HISTORY: The patient lives alone in a home in [place]. The patient report s that her 5 years ago and her son approximately a year ago. The pa tient does want to return home after discharge. The patient is aware that she is going to need help after discharge and the patient's son is trying to work on this in regard to getting caregiver serv ices. MEDICATIONS: The patient is currently on Lexapro 10 mg at bedtime and restoril 15 mg at bedtime. SUBSTANCE USE: The patient reports that she does not smoke. The patient reports that she does not use alcohol or other drugs. MENTAL STATUS EXAMINATION: APPEARANCE: The patient was seen in her wheelchair. She appears of average height and weight. The patient is right-handed. BEHAVIOR: The patient was cooperative during the consultation. The patient did attempt to answer a ll questions presented to her by the interviewer. MOOD AND AFFECT: The patient's mood appears to be depressed. Affect does appear to be just slightl y anxious. PERCEPTION: The patient reports no hallucinations or delusions. The patient was alert to person, p lace, situation and time. MEMORY AND COGNITION: The patient's memory and cognition appear to be intact. She did not have dif ficulty recalling recent or remote events. She was able to say that she was in the [facility] rehab program. The patient was able to say who the [facility] administrator is. She c ould not say who the governor of the state, or who the mayor of the [facility] is. But for her age, the p atient overall is seeming to be adequate in regard to her overall cognitive ability. INTELLIGENCE: Intelligence appears to fall in the average range. INSIGHT: Fair. JUDGMENT: Fair. THOUGHT CONTENT: The patient is concerned about her present medical condition. The patient does wa nt to return home as soon as possible. The patient is motivated to get better. The patient is very depressed about situations in her life. The patient's 5 years ago and her son ap proximately a year ago. DISCUSSION: The patient can likely benefit from some cognitive/behavioral psychotherapy while she i s on the unit. The psychotherapy would help her with her underlying level of grief and some of her depression and to try to deal with her frustration about her physical health. DIAGNOSTIC IMPRESSION: F33.1, major depressive disorder, recurrent, moderate. Thank you very much, Dr. Haris Ramesh, for referring this individual. Please do not hesitate to ca ll if you have additional questions. Dictated By: SNEHA STRONG PHD LEO/JOSÉ ANTONIO Conf#: [id number] DID#: [id number]
[2016-10-21 20:00] VITALS: BP 131/73; RESP 18
[2016-10-21] MEDS: ESCITALOPRAM 10 MG TAB PO SCH (20:28)
[2016-10-21] MEDS: SENNA TAB PO SCH (20:29)
[2016-10-21] MEDS: AL HYDROX/MG TRISILICATE TAB PO PRN (20:30)
[2016-10-21] MEDS: ATORVASTATIN 80 MG TAB PO SCH (20:41)
[2016-10-22 07:30] VITALS: BP 123/76; RESP 18
[2016-10-22] MEDS: POLYETHYLENE GLYCOL 17 GM PACKET PO SCH (08:40)
[2016-10-22] MEDS: MULTIVITAMINS/MINERALS TAB PO SCH (08:40)
[2016-10-22] MEDS: FAMOTIDINE 20 MG TAB PO SCH (08:40)
[2016-10-22] MEDS: DOCUSATE SODIUM 10 MG/ML (10ML CUP) PO SCH ×2 (08:40→20:18)
[2016-10-22] MEDS: LISINOPRIL 5 MG TAB PO SCH (08:40)
[2016-10-22] MEDS: APIXABAN 5 MG TABLET PO SCH ×2 (08:42→20:10)
[2016-10-22] MEDS: METOPROLOL 25 MG TAB PO SCH ×2 (08:42→20:19)
--- NOTE | 2016-10-22 10:42 | PN ---
DATE: 10/22/2016 SUBJECTIVE: The patient is stable, no acute events overnight. No fevers, chills, nausea, vomiting. OBJECTIVE: VITAL SIGNS: Blood pressure 123/76, respirations 18, pulse 68, temperature 97.7. HEENT: Head is normocephalic. NECK: Supple. HEART: Regular rate. LUNGS: Show diminished breath sounds at the bases. ABDOMEN: Soft, nontender to palpation. No rebound or guarding. EXTREMITIES: Negative for clubbing, cyanosis. No edema. DERMATOLOGIC: No rashes. MUSCULOSKELETAL: No joint effusions. NEUROLOGIC: No change in exam. MEDICATIONS: The patient's medications have been reviewed. LABORATORY DATA: Have been reviewed. No new labs. ASSESSMENT AND PLAN: 1. Incarcerated abdominal hernia, status post laparoscopic repair. The patient is currently stable . Continue PT, OT. 2. 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 The patient's guest service team leader, Dr. Huntley, is aware . No plan for intervention at this time. 3. Cerebrovascular accident with left-sided hemiparesis. Continue current medical management. 4. Hypertension. Continue current blood pressure regimen. 5. Dyslipidemia. Continue statin therapy. 6. Anemia. Continue to monitor hemoglobin and hematocrit levels. 7. Gastrointestinal and deep venous thrombosis prophylaxis. Continue proton pump inhibitor and Ciara elyse. 8. General debility. Continue PT, OT. Dictated By: MEGAN SILAV/JOSÉ ANTONIO Conf#: [id number] DID#: [id number]
--- NOTE | 2016-10-22 11:06 | PN ---
Date/Time of Note Date/Time of Note DATE: 10/22/16 TIME: 10:58 Assessment/Plan VTE Prophylaxis VTE Prophylaxis Intervention: other (eliquis) Lines/Catheters IV Catheter Type (from Nrs): Saline Lock Urinary Cath still in place: No Assessment/Plan Assessment/Plan 1. Right cerebrovascular accident with left-sided hemiparesis, left hemisensory loss, impaired mobility/gait/ADLs/cognition, dysphagia. Continue PT/OT/ST. Min assist to CGA for bed mobility and transfers. Continue secondary stroke prevention. 2. Right acetabulum mass. Medically managed per heme/onc. 3.Status post laparoscopic repair of abdominal hernia. 4.Coronary artery disease. Continue medical management. 5.Hypertension. BP controlled. Continue medical management. 6.Dyslipidemia. Continue statin. Subjective 24 Hr Interval Summary Free Text/Dictation Rehab progress note Subjective: No acute complaints. ROS: Denies abdominal pain, no chest pain, no shortness of breath, denies constipation, no dysuria, no chills, no new weakness, no headache or dizziness. Exam/Review of Systems Vital Signs Vitals Vital Signs Date Time Temp Pulse Resp B/P Pulse Ox O2 Delivery O2 Flow Rate FiO2 10/22/16 07:30 97.7 68 18 123/76 96 10/21/16 08:00 Room Air Intake and Output 10/21/16 10/21/16 10/22/16 15:00 23:00 07:00 Intake Total 700 ml 480 ml 350 ml Balance 700 ml 480 ml 350 ml Exam General: Awake, alert, no acute distress CV: Regular rate, s1s2 Lungs: Clear to auscultation, no wheezing or crackles Abdomen soft, nontender, +bowel sounds Extremities without cyanosis, no edema Neuro: Left sided hemiparesis. No new sensory changes. Results Result Diagram: 10/20/16 0600 10/20/16 0600 Medications Medications Current Medications Acetaminophen (Tylenol Tab) 650 mg Q4H PRN PO FOR PAIN 1-5; Start 10/09/16 at 19:30 Apixaban (Eliquis) 5 mg BID PO Last administered on 10/22/16 08:42; Admin Dose 5 MG; Start 10/09/16 at 21:00 Atorvastatin Calcium (Lipitor) 80 mg QHS PO Last administered on 10/21/16 20: 41; Admin Dose 80 MG; Start 10/09/16 at 21:00 Docusate Sodium (Colace Liquid Cup) 100 mg BID PO Last administered on 08:40; Admin Dose 100 MG; Start 10/09/16 at 21:00 Escitalopram Oxalate (Lexapro) 10 mg QHS PO Last administered on 10/21/16 20: 28; Admin Dose 10 MG; Start 10/09/16 at 21:00 Famotidine (Pepcid) 20 mg DAILY@09 PO Last administered on 10/22/16 08:40; Admin Dose 20 MG; Start 10/10/16 at 09:00 Metoprolol Tartrate (Lopressor) 12.5 mg BID PO Last administered on 10/22/16 08:42; Admin Dose 12.5 MG; Start 10/09/16 at 21:00 Polyethylene Glycol (Miralax) 17 gm DAILY PO Last administered on 10/22/16 08: 40; Admin Dose 17 GM; Start 10/10/16 at 09:00 Senna (Senokot) 1 tab HS PO Last administered on 10/21/16 20:29; Admin Dose 1 TAB; Start 10/09/16 at 21:00 Bisacodyl (Dulcolax Supp) 10 mg DAILY PRN [place] CONSTIPATION; Start 10/09/16 at 19 :30 Magnesium Hydroxide (Milk Of Mag) 30 ml BID PRN PO CONSTIPATION; Start at 19:30 Lactulose (Enulose) 20 gm DAILY PRN PO CONSTIPATION; Start 10/09/16 at 19:30 Temazepam (Restoril) 15 mg HS PRN PO INSOMNIA Last administered on 10/20/16 21 :32; Admin Dose 15 MG; Start 10/10/16 at 01:55 Multivitamins/ Minerals (Theragran-M) 1 tab DAILY PO Last administered on 08:40; Admin Dose 1 TAB; Start 10/10/16 at 09:00 Lisinopril (Zestril) 5 mg DAILY PO Last administered on 10/22/16 08:40; Admin Dose 5 MG; Start 10/10/16 at 09:00 Al Hydroxide/Mg Trisilicate (Gaviscon) 1 tab TID PRN PO HEARTBURN Last administered on 10/21/16 20:30; Admin Dose 1 TAB; Start 10/10/16 at 02:00 Simethicone (Mylicon) 160 mg TID PRN PO DISTENSION/GAS/BLOATING Last administered on 10/15/16 23:34; Admin Dose 160 MG; Start 10/12/16 at 15:00 HANG MEDRANO Oct 22, 2016 11:06
[2016-10-22 19:28] VITALS: BP 99/56; RESP 19
[2016-10-22] MEDS: ESCITALOPRAM 10 MG TAB PO SCH (20:09)
[2016-10-22] MEDS: ATORVASTATIN 80 MG TAB PO SCH (20:10)
[2016-10-22] MEDS: SENNA TAB PO SCH (20:19)
[2016-10-23] MEDS: AL HYDROX/MG TRISILICATE TAB PO PRN (00:33)
[2016-10-23 07:30] VITALS: BP 119/58; RESP 18
[2016-10-23] MEDS: MULTIVITAMINS/MINERALS TAB PO SCH (08:22)
[2016-10-23] MEDS: LISINOPRIL 5 MG TAB PO SCH (08:23)
[2016-10-23] MEDS: METOPROLOL 25 MG TAB PO SCH ×2 (08:23→20:49)
[2016-10-23] MEDS: APIXABAN 5 MG TABLET PO SCH ×2 (08:23→20:49)
[2016-10-23] MEDS: DOCUSATE SODIUM 10 MG/ML (10ML CUP) PO SCH ×2 (08:24→20:55)
[2016-10-23] MEDS: POLYETHYLENE GLYCOL 17 GM PACKET PO SCH (08:24)
[2016-10-23] MEDS: FAMOTIDINE 20 MG TAB PO SCH (08:28)
--- NOTE | 2016-10-23 10:43 | PN ---
DATE: 10/23/2016 SUBJECTIVE: The patient is stable. No events overnight. No fevers, chills, nausea, vomiting. OBJECTIVE: VITAL SIGNS: Blood pressure is 119/58, respiration is 18, pulse 77, temperature 98.1. HEENT: Head is normocephalic. NECK: Supple. HEART: Regular rate. LUNGS: Show diminished breath sounds at base. ABDOMEN: Soft, nontender to palpation without rebound or guarding. EXTREMITIES: Negative for clubbing, cyanosis, edema. DERMATOLOGIC: No rashes. MUSCULOSKELETAL: No joint effusions. NEUROLOGIC: No change in exam. MEDICATIONS: The patient's medications have been reviewed. LABORATORY DATA: Has been reviewed. ASSESSMENT AND PLAN: 1. Incarcerated abdominal hernia status post laparoscopic repair. The patient is currently stable. Continue PT, OT. 2. 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 The patient has been evaluated by furniture delivery driver, Dr. Huntley. No plan for intervention at this time. 3. Cerebrovascular accident with left-sided hemiparesis. Continue medical management. 4. Hypertension. Continue current blood pressure regimen. 5. Dyslipidemia. Continue statin therapy. 6. Anemia. Continue to monitor hemoglobin and hematocrit levels. 7. Gastrointestinal and deep venous thrombosis prophylaxis. Continue proton pump inhibitor and Ciara elyse. 8. General debility. Continue PT, OT. Dictated By: MEGAN SILVA/JOSÉ ANTONIO Conf#: [id number] DID#: [id number]
--- NOTE | 2016-10-23 12:38 | PN ---
Date/Time of Note Date/Time of Note DATE: 10/23/16 TIME: 12:33 Assessment/Plan VTE Prophylaxis VTE Prophylaxis Intervention: other (eliquis) Lines/Catheters IV Catheter Type (from Nrs): Saline Lock Urinary Cath still in place: No Assessment/Plan Assessment/Plan 1. Right cerebrovascular accident with left-sided hemiparesis, left hemisensory loss, impaired mobility/gait/ADLs/cognition, dysphagia. Continue PT/OT/ST. Transfers improving, now CGA. Minimal assistance for lower body dressing. Continue secondary stroke prevention. Developing more tone in LUE, continue ROM/ stretching, proper positioning. May benefit from addition of baclofen in the future, will monitor. 2. Right acetabulum mass. Medically managed per oncology. 3.Status post laparoscopic repair of abdominal hernia. 4.Coronary artery disease. Continue medical management. 5.Hypertension. Continue to monitor BP. Continue antihypertensive meds per internal medicine. 6.Dyslipidemia. Continue statin. 7. Anemia. Continue to monitor hemoglobin/hematocrit. Subjective 24 Hr Interval Summary Free Text/Dictation Rehab progress note Subjective: Denies any acute complaints at present. ROS: Denies chest pain, no shortness of breath, no abdominal pain, no nausea, no vomiting, denies muscle spasms. Exam/Review of Systems Vital Signs Vitals Vital Signs Date Time Temp Pulse Resp B/P Pulse Ox O2 Delivery O2 Flow Rate FiO2 10/23/16 07:30 98.1 77 18 119/58 98 10/21/16 08:00 Room Air Intake and Output 10/22/16 10/22/16 10/23/16 15:00 23:00 07:00 Intake Total 680 ml 350 ml Output Total 200 ml Balance 680 ml 150 ml Exam General: Awake, alert, no acute distress CV: Regular rate, s1s2 Lungs: Clear to auscultation, no wheezing or crackles Abdomens soft, nontender Extremities without cyanosis, no new swelling Neuro: Left sided hemiparesis stable. Mild increased tone in LUE. Results Result Diagram: 10/20/16 0600 10/20/16 0600 Medications Medications Current Medications Acetaminophen (Tylenol Tab) 650 mg Q4H PRN PO FOR PAIN 1-5; Start 10/09/16 at 19:30 Apixaban (Eliquis) 5 mg BID PO Last administered on 10/23/16t 08:23; Admin Dose 5 MG; Start 10/09/16 at 21:00 Atorvastatin Calcium (Lipitor) 80 mg QHS PO Last administered on 10/22/16 20: 10; Admin Dose 80 MG; Start 10/09/16 at 21:00 Docusate Sodium (Colace Liquid Cup) 100 mg BID PO Last administered on 08:24; Admin Dose 100 MG; Start 10/09/16 at 21:00 Escitalopram Oxalate (Lexapro) 10 mg QHS PO Last administered on 10/22/16 20: 09; Admin Dose 10 MG; Start 10/09/16 at 21:00 Famotidine (Pepcid) 20 mg DAILY@09 PO Last administered on 10/23/16 08:28; Admin Dose 20 MG; Start 10/10/16 at 09:00 Metoprolol Tartrate (Lopressor) 12.5 mg BID PO Last administered on 10/23/16 08:23; Admin Dose 12.5 MG; Start 10/09/16 at 21:00 Polyethylene Glycol (Miralax) 17 gm DAILY PO Last administered on 10/23/16 08: 24; Admin Dose 17 GM; Start 10/10/16 at 09:00 Senna (Senokot) 1 tab HS PO Last administered on 10/21/16 20:29; Admin Dose 1 TAB; Start 10/09/16 at 21:00 Bisacodyl (Dulcolax Supp) 10 mg DAILY PRN [place] CONSTIPATION; Start 10/09/16 at 19 :30 Magnesium Hydroxide (Milk Of Mag) 30 ml BID PRN PO CONSTIPATION; Start at 19:30 Lactulose (Enulose) 20 gm DAILY PRN PO CONSTIPATION; Start 10/09/16 at 19:30 Temazepam (Restoril) 15 mg HS PRN PO INSOMNIA Last administered on 10/20/16 21 :32; Admin Dose 15 MG; Start 10/10/16 at 01:55 Multivitamins/ Minerals (Theragran-M) 1 tab DAILY PO Last administered on 08:22; Admin Dose 1 TAB; Start 10/10/16 at 09:00 Lisinopril (Zestril) 5 mg DAILY PO Last administered on 10/23/16 08:23; Admin Dose 5 MG; Start 10/10/16 at 09:00 Al Hydroxide/Mg Trisilicate (Gaviscon) 1 tab TID PRN PO HEARTBURN Last administered on 10/23/16 00:33; Admin Dose 1 TAB; Start 10/10/16 at 02:00 Simethicone (Mylicon) 160 mg TID PRN PO DISTENSION/GAS/BLOATING Last administered on 10/15/16 23:34; Admin Dose 160 MG; Start 10/12/16 at 15:00 HANG MEDRANO Oct 23, 2016 12:38
[2016-10-23 20:30] VITALS: BP 155/71; RESP 18
[2016-10-23] MEDS: ESCITALOPRAM 10 MG TAB PO SCH (20:49)
[2016-10-23] MEDS: ATORVASTATIN 80 MG TAB PO SCH (20:49)
[2016-10-23] MEDS: SENNA TAB PO SCH (20:58)
[2016-10-24] MEDS: AL HYDROX/MG TRISILICATE TAB PO PRN ×2 (05:58→16:28)
[2016-10-24 06:05] VITALS: BP 143/80; PULSE 74
--- NOTE | 2016-10-24 09:56 | CONS ---
Date/Time of Note Date/Time of Note DATE: 10/24/16 TIME: 09:55 Consult Date/Type/Reason Admit Date/Time Oct 09, 2016 at 16:20 Initial Consult Date 10/10/16 Type of Consultation: 10.10.16 Ordering Provider: MEGAN FLORES pt. seen and examined. no new c/o. PE: VITAL SIGNS: Blood pressure is 119/58, respiration is 18, pulse 77, temperature 98.1. HEENT: Head is normocephalic. NECK: Supple. HEART: Regular rate. LUNGS: Show diminished breath sounds at base. ABDOMEN: Soft, nontender to palpation without rebound or guarding. EXTREMITIES: Negative for clubbing, cyanosis, edema. DERMATOLOGIC: No rashes. MUSCULOSKELETAL: No joint effusions. NEUROLOGIC: No change in exam. Objective Vital Signs Date Time Temp Pulse Resp B/P Pulse Ox O2 Delivery O2 Flow Rate FiO2 10/24/16 06:05 74 143/80 10/23/16 20:30 97.6 18 97 10/21/16 08:00 Room Air Intake and Output 10/23/16 10/23/16 10/24/16 15:00 23:00 07:00 Intake Total 320 ml 450 ml Output Total 300 ml Balance 20 ml 450 ml Results/Medications Result Diagram: 10/20/16 0610/20/16 0600 Medications Current Medications Acetaminophen (Tylenol Tab) 650 mg Q4H PRN PO FOR PAIN 1-5/10; Start 10/09/16 at 19:30 Apixaban (Eliquis) 5 mg BID PO Last administered on 10/23/16 20:49; Admin Dose 5 MG; Start 10/09/16 at 21:00 Atorvastatin Calcium (Lipitor) 80 mg QHS PO Last administered on 10/23/16 20: 49; Admin Dose 80 MG; Start 10/09/16 at 21:00 Docusate Sodium (Colace Liquid Cup) 100 mg BID PO Last administered on 20:55; Admin Dose 100 MG; Start 10/09/16 at 21:00 Escitalopram Oxalate (Lexapro) 10 mg QHS PO Last administered on 10/23/16 20: 49; Admin Dose 10 MG; Start 10/09/16 at 21:00 Famotidine (Pepcid) 20 mg DAILY@09 PO Last administered on 10/23/16 08:28; Admin Dose 20 MG; Start 10/10/16 at 09:00 Metoprolol Tartrate (Lopressor) 12.5 mg BID PO Last administered on 10/23/16 20:49; Admin Dose 12.5 MG; Start 10/09/16 at 21:00 Polyethylene Glycol (Miralax) 17 gm DAILY PO Last administered on 10/23/16 08: 24; Admin Dose 17 GM; Start 10/10/16 at 09:00 Senna (Senokot) 1 tab HS PO Last administered on 10/21/16 20:29; Admin Dose 1 TAB; Start 10/09/16 at 21:00 Bisacodyl (Dulcolax Supp) 10 mg DAILY PRN [place] CONSTIPATION; Start 10/09/16 at 19 :30 Magnesium Hydroxide (Milk Of Mag) 30 ml BID PRN PO CONSTIPATION; Start at 19:30 Lactulose (Enulose) 20 gm DAILY PRN PO CONSTIPATION; Start 10/09/16 at 19:30 Temazepam (Restoril) 15 mg HS PRN PO INSOMNIA Last administered on 10/20/16 21 :32; Admin Dose 15 MG; Start 10/10/16 at 01:55 Multivitamins/ Minerals (Theragran-M) 1 tab DAILY PO Last administered on 08:22; Admin Dose 1 TAB; Start 10/10/16 at 09:00 Lisinopril (Zestril) 5 mg DAILY PO Last administered on 10/23/16 08:23; Admin Dose 5 MG; Start 10/10/16 at 09:00 Al Hydroxide/Mg Trisilicate (Gaviscon) 1 tab TID PRN PO HEARTBURN Last administered on 10/24/16 05:58; Admin Dose 1 TAB; Start 10/10/16 at 02:00 Simethicone (Mylicon) 160 mg TID PRN PO DISTENSION/GAS/BLOATING Last administered on 10/15/16 23:34; Admin Dose 160 MG; Start 10/12/16 at 15:00 Assessment/Plan Chief Complaint/Hosp Course 1. Incarcerated abdominal hernia status post laparoscopic repair. The patient is currently stable. Continue PT, OT. 2. 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 The patient has been evaluated by converter skimmer, Dr. Huntley. No plan for intervention at this time. 3. Cerebrovascular accident with left-sided hemiparesis. Continue medical management. 4. Hypertension. Continue current blood pressure regimen. 5. Dyslipidemia. Continue statin therapy. 6. Anemia. Continue to monitor hemoglobin and hematocrit levels. 7. Gastrointestinal and deep venous thrombosis prophylaxis. Continue proton pump inhibitor and Eliquis. 8. General debility. Continue PT, OT. Problems: JAVI BELTRÁN MD Oct 24, 2016 09:56
[2016-10-24] MEDS: MULTIVITAMINS/MINERALS TAB PO SCH (10:22)
[2016-10-24] MEDS: DOCUSATE SODIUM 10 MG/ML (10ML CUP) PO SCH ×2 (10:22→20:27)
[2016-10-24] MEDS: LISINOPRIL 5 MG TAB PO SCH (10:23)
[2016-10-24] MEDS: APIXABAN 5 MG TABLET PO SCH ×2 (10:23→20:25)
[2016-10-24] MEDS: METOPROLOL 25 MG TAB PO SCH ×2 (10:24→20:26)
[2016-10-24] MEDS: POLYETHYLENE GLYCOL 17 GM PACKET PO SCH (10:24)
[2016-10-24] MEDS: FAMOTIDINE 20 MG TAB PO SCH (10:28)
--- NOTE | 2016-10-24 13:42 | PN ---
Date/Time of Note Date/Time of Note DATE: 10/24/16 TIME: 13:40 Assessment/Plan VTE Prophylaxis VTE Prophylaxis Intervention: other (eliquis) Lines/Catheters IV Catheter Type (from Nrs): Saline Lock Urinary Cath still in place: No Assessment/Plan Assessment/Plan 1. Right cerebrovascular accident with left-sided hemiparesis, left hemisensory loss, impaired mobility/gait/ADLs/cognition, dysphagia. Continue PT/OT/ST. Gait improving now ambulating 60ft x2 with CGA with hemiwalker. Continue secondary stroke prevention. Continue to monitor tone on the left, continue ROM/stretching , proper positioning. 2. Right acetabulum mass. Oncology medically managing. 3.Status post laparoscopic repair of abdominal hernia. Monitor surgical site. 4.Coronary artery disease. Continue medical management. 5.Hypertension. BP controlled. Continue current regimen per internal medicine. 6.Dyslipidemia. Continue statin. 7. Anemia. Continue to monitor hemoglobin/hematocrit, internal medicine following. Subjective 24 Hr Interval Summary Free Text/Dictation Rehab progress note Subjective: Nursing reports no acute overnight events. Patient without acute complaints. Denies muscle spasms. ROS: Denies headache, no chest pain, no shortness of breath, no abdominal pain, no vomiting, no chills. Exam/Review of Systems Vital Signs Vitals Vital Signs Date Time Temp Pulse Resp B/P Pulse Ox O2 Delivery O2 Flow Rate FiO2 10/24/16 06:05 74 143/80 10/23/16 20:30 97.6 18 97 10/21/16 08:00 Room Air Intake and Output 10/23/16 10/23/16 10/24/16 15:00 23:00 07:00 Intake Total 320 ml 450 ml Output Total 300 ml Balance 20 ml 450 ml Exam General: Awake, alert, no acute distress CV: Regular rate, s1s2 Lungs: Clear to auscultation, no wheezing or crackles Abdomens soft, nontender Extremities without cyanosis, no new swelling Neuro: Left sided hemiparesis stable. Follows simple commands. Results Result Diagram: 10/20/16 0600 10/20/16 0600 Medications Medications Current Medications Acetaminophen (Tylenol Tab) 650 mg Q4H PRN PO FOR PAIN 1-510; Start 10/09/16 at 19:30 Apixaban (Eliquis) 5 mg BID PO Last administered on 10/24/16 10:23; Admin Dose 5 MG; Start 10/09/16 at 21:00 Atorvastatin Calcium (Lipitor) 80 mg QHS PO Last administered on 10/23/16 20: 49; Admin Dose 80 MG; Start 10/09/16 at 21:00 Docusate Sodium (Colace Liquid Cup) 100 mg BID PO Last administered on 10:22; Admin Dose 100 MG; Start 10/09/16 at 21:00 Escitalopram Oxalate (Lexapro) 10 mg QHS PO Last administered on 10/23/16 20: 49; Admin Dose 10 MG; Start 10/09/16 at 21:00 Famotidine (Pepcid) 20 mg DAILY@09 PO Last administered on 10/24/16 10:28; Admin Dose 20 MG; Start 10/10/16 at 09:00 Metoprolol Tartrate (Lopressor) 12.5 mg BID PO Last administered on 10/24/16 10:24; Admin Dose 12.5 MG; Start 10/09/16 at 21:00 Polyethylene Glycol (Miralax) 17 gm DAILY PO Last administered on 10/24/16 10: 24; Admin Dose 17 GM; Start 10/10/16 at 09:00 Senna (Senokot) 1 tab HS PO Last administered on 10/21/16 20:29; Admin Dose 1 TAB; Start 10/09/16 at 21:00 Bisacodyl (Dulcolax Supp) 10 mg DAILY PRN [place] CONSTIPATION; Start 10/09/16 at 19 :30 Magnesium Hydroxide (Milk Of Mag) 30 ml BID PRN PO CONSTIPATION; Start at 19:30 Lactulose (Enulose) 20 gm DAILY PRN PO CONSTIPATION; Start 10/09/16 at 19:30 Temazepam (Restoril) 15 mg HS PRN PO INSOMNIA Last administered on 10/20/16 21 :32; Admin Dose 15 MG; Start 10/10/16 at 01:55 Multivitamins/ Minerals (Theragran-M) 1 tab DAILY PO Last administered on 10:22; Admin Dose 1 TAB; Start 10/10/16 at 09:00 Lisinopril (Zestril) 5 mg DAILY PO Last administered on 10/24/16 10:23; Admin Dose 5 MG; Start 10/10/16 at 09:00 Al Hydroxide/Mg Trisilicate (Gaviscon) 1 tab TID PRN PO HEARTBURN Last administered on 10/24/16 05:58; Admin Dose 1 TAB; Start 10/10/16 at 02:00 Simethicone (Mylicon) 160 mg TID PRN PO DISTENSION/GAS/BLOATING Last administered on 10/15/16 23:34; Admin Dose 160 MG; Start 10/12/16 at 15:00 HANG MEDRANO Oct 24, 2016 13:42
[2016-10-24] MEDS: ESCITALOPRAM 10 MG TAB PO SCH (20:25)
[2016-10-24] MEDS: ATORVASTATIN 80 MG TAB PO SCH (20:25)
[2016-10-24] MEDS: SENNA TAB PO SCH (20:27)
[2016-10-24 20:40] VITALS: BP 106/62; RESP 18
[2016-10-24] MEDS: ACETAMINOPHEN 325 MG TAB PO PRN (23:32)
[2016-10-24] MEDS: TEMAZEPAM 15 MG CAP PO PRN (23:32)
[2016-10-25] MEDS: ACETAMINOPHEN 325 MG TAB PO PRN (03:48)
[2016-10-25 07:30] VITALS: BP 116/58; RESP 18
[2016-10-25] MEDS: LISINOPRIL 5 MG TAB PO SCH (09:00)
[2016-10-25] MEDS: METOPROLOL 25 MG TAB PO SCH ×2 (09:00→20:22)
[2016-10-25] MEDS: FAMOTIDINE 20 MG TAB PO SCH (09:01)
[2016-10-25] MEDS: POLYETHYLENE GLYCOL 17 GM PACKET PO SCH (09:01)
[2016-10-25] MEDS: APIXABAN 5 MG TABLET PO SCH ×2 (09:01→20:21)
[2016-10-25] MEDS: MULTIVITAMINS/MINERALS TAB PO SCH (09:01)
[2016-10-25] MEDS: DOCUSATE SODIUM 10 MG/ML (10ML CUP) PO SCH ×2 (09:01→20:21)
[2016-10-25 09:09] VITALS: BP 108/68; PULSE 68; RESP 18
--- NOTE | 2016-10-25 09:09 | CONS ---
Date/Time of Note Date/Time of Note DATE: 10/25/16 TIME: 09:08 Consult Date/Type/Reason Admit Date/Time Oct 09, 2016 at 16:20 Initial Consult Date 10/10/16 Type of Consultation: 10.10.16 Ordering Provider: MEGAN FLORES DO Subjective pt. seen and exaimend good uop. d/w rn, no new events. PE: General: Awake, alert, no acute distress CV: Regular rate, s1s2 Lungs: Clear to auscultation, no wheezing or crackles Abdomens soft, nontender Extremities without cyanosis, no new swelling Neuro: Left sided hemiparesis stable. Follows simple commands. Objective Vital Signs Date Time Temp Pulse Resp B/P Pulse Ox O2 Delivery O2 Flow Rate FiO2 10/24/16 20:40 97.7 78 18 106/62 97 10/21/16 08:00 Room Air Intake and Output 10/24/16 10/24/16 10/25/16 15:00 23:00 07:00 Intake Total 600 ml 650 ml Balance 600 ml 650 ml Results/Medications Medications Current Medications Acetaminophen (Tylenol Tab) 650 mg Q4H PRN PO FOR PAIN -11/04 Last administered on 10/25/16 03:48; Admin Dose 650 MG; Start 10/09/16 at 19:30 Apixaban (Eliquis) 5 mg BID PO Last administered on 10/25/16 09:01; Admin Dose 5 MG; Start 10/09/16 at 21:00 Atorvastatin Calcium (Lipitor) 80 mg QHS PO Last administered on 10/24/16 20: 25; Admin Dose 80 MG; Start 10/09/16 at 21:00 Docusate Sodium (Colace Liquid Cup) 100 mg BID PO Last administered on 09:01; Admin Dose 100 MG; Start 10/09/16 at 21:00 Escitalopram Oxalate (Lexapro) 10 mg QHS PO Last administered on 10/24/16 20: 25; Admin Dose 10 MG; Start 10/09/16 at 21:00 Famotidine (Pepcid) 20 mg DAILY@09 PO Last administered on 10/25/16 09:01; Admin Dose 20 MG; Start 10/10/16 at 09:00 Metoprolol Tartrate (Lopressor) 12.5 mg BID PO Last administered on 10/24/16 10:24; Admin Dose 12.5 MG; Start 10/09/16 at 21:00 Polyethylene Glycol (Miralax) 17 gm DAILY PO Last administered on 10/25/16 09: 01; Admin Dose 17 GM; Start 10/10/16 at 09:00 Senna (Senokot) 1 tab HS PO Last administered on 10/21/16 20:29; Admin Dose 1 TAB; Start 10/09/16 at 21:00 Bisacodyl (Dulcolax Supp) 10 mg DAILY PRN [place] CONSTIPATION; Start 10/09/16 at 19 :30 Magnesium Hydroxide (Milk Of Mag) 30 ml BID PRN PO CONSTIPATION; Start at 19:30 Lactulose (Enulose) 20 gm DAILY PRN PO CONSTIPATION; Start 10/09/16 at 19:30 Temazepam (Restoril) 15 mg HS PRN PO INSOMNIA Last administered on 10/24/16 23 :32; Admin Dose 15 MG; Start 10/10/16 at 01:55 Multivitamins/ Minerals (Theragran-M) 1 tab DAILY PO Last administered on 09:01; Admin Dose 1 TAB; Start 10/10/16 at 09:00 Lisinopril (Zestril) 5 mg DAILY PO Last administered on 10/24/16 10:23; Admin Dose 5 MG; Start 10/10/16 at 09:00 Al Hydroxide/Mg Trisilicate (Gaviscon) 1 tab TID PRN PO HEARTBURN Last administered on 10/24/16 16:28; Admin Dose 1 TAB; Start 10/10/16 at 02:00 Simethicone (Mylicon) 160 mg TID PRN PO DISTENSION/GAS/BLOATING Last administered on 10/15/16 23:34; Admin Dose 160 MG; Start 10/12/16 at 15:00 Assessment/Plan Chief Complaint/Hosp Course 1. Incarcerated abdominal hernia status post laparoscopic repair. The patient is currently stable. Continue PT, OT. 2. 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 The patient has been evaluated by marketing strategy manager, Dr. Huntley. No plan for intervention at this time. 3. Cerebrovascular accident with left-sided hemiparesis. Continue medical management. 4. Hypertension. Continue current blood pressure regimen. 5. Dyslipidemia. Continue statin therapy. 6. Anemia. Continue to monitor hemoglobin and hematocrit levels. 7. Gastrointestinal and deep venous thrombosis prophylaxis. Continue proton pump inhibitor and Eliquis. 8. General debility. Continue PT, OT. Problems: JAVI BELTRÁN MD Oct 25, 2016 09:09
--- NOTE | 2016-10-25 10:01 | PN ---
Date/Time of Note Date/Time of Note DATE: 10/25/16 TIME: 09:58 Assessment/Plan VTE Prophylaxis VTE Prophylaxis Intervention: other (eliquis) Lines/Catheters IV Catheter Type (from Nrs): Saline Lock Urinary Cath still in place: No Assessment/Plan Assessment/Plan 1. Right cerebrovascular accident with left-sided hemiparesis, left hemisensory loss, impaired mobility/gait/ADLs/cognition, dysphagia. Continue PT/OT/ST. SPV for grooming, mod assist for bathing. Continue secondary stroke prevention. Developing more tone in left upper extremity, continue ROM/stretching, proper positioning. Keep LUE elevated. 2. Right acetabulum mass. Medically managed per heme/onc. 3.Status post laparoscopic repair of abdominal hernia. Continue to monitor surgical site. 4.Coronary artery disease. Continue medical management. 5.Hypertension. BP overall controlled. Continue management per internal medicine. 6.Dyslipidemia. Continue statin. 7. Anemia. Continue to monitor. Subjective 24 Hr Interval Summary Free Text/Dictation Rehab progress note Subjective: No acute complaints. ROS: Denies headache, no dizziness, no chest pain, no shortness of breath, no abdominal pain, no vomiting, no constipation. Exam/Review of Systems Vital Signs Vitals Vital Signs Date Time Temp Pulse Resp B/P Pulse Ox O2 Delivery O2 Flow Rate FiO2 10/25/16 09:09 68 18 108/68 96 Room Air 10/24/16 20:40 97.7 Intake and Output 10/24/16 10/24/16 10/25/16 15:00 23:00 07:00 Intake Total 600 ml 650 ml Balance 600 ml 650 ml Exam General: Awake, alert, no acute distress CV: Regular rate and rhythm, s1s2 audible Lungs: Respirations are nonlabored, no wheezing Abdomen soft, nontender. Extremities without cyanosis, left hand edema without warmth or redness Neuro: Left hemiparesis stable. Follows simple commands. Medications Medications Current Medications Acetaminophen (Tylenol Tab) 650 mg Q4H PRN PO FOR PAIN 1-510 Last administered on 10/25/16 03:48; Admin Dose 650 MG; Start 10/09/16 at 19:30 Apixaban (Eliquis) 5 mg BID PO Last administered on 10/25/16 09:01; Admin Dose 5 MG; Start 10/09/16 at 21:00 Atorvastatin Calcium (Lipitor) 80 mg QHS PO Last administered on 10/24/16 20: 25; Admin Dose 80 MG; Start 10/09/16 at 21:00 Docusate Sodium (Colace Liquid Cup) 100 mg BID PO Last administered on 09:01; Admin Dose 100 MG; Start 10/09/16 at 21:00 Escitalopram Oxalate (Lexapro) 10 mg QHS PO Last administered on 10/24/16 20: 25; Admin Dose 10 MG; Start 10/09/16 at 21:00 Famotidine (Pepcid) 20 mg DAILY@09 PO Last administered on 10/25/16 09:01; Admin Dose 20 MG; Start 10/10/16 at 09:00 Metoprolol Tartrate (Lopressor) 12.5 mg BID PO Last administered on 10/24/16 10:24; Admin Dose 12.5 MG; Start 10/09/16 at 21:00 Polyethylene Glycol (Miralax) 17 gm DAILY PO Last administered on 10/25/16 09: 01; Admin Dose 17 GM; Start 10/10/16 at 09:00 Senna (Senokot) 1 tab HS PO Last administered on 10/21/16 20:29; Admin Dose 1 TAB; Start 10/09/16 at 21:00 Bisacodyl (Dulcolax Supp) 10 mg DAILY PRN [place] CONSTIPATION; Start 10/09/16 at 19 :30 Magnesium Hydroxide (Milk Of Mag) 30 ml BID PRN PO CONSTIPATION; Start at 19:30 Lactulose (Enulose) 20 gm DAILY PRN PO CONSTIPATION; Start 10/09/16 at 19:30 Temazepam (Restoril) 15 mg HS PRN PO INSOMNIA Last administered on 10/24/16 23 :32; Admin Dose 15 MG; Start 10/10/16 at 01:55 Multivitamins/ Minerals (Theragran-M) 1 tab DAILY PO Last administered on 09:01; Admin Dose 1 TAB; Start 10/10/16 at 09:00 Lisinopril (Zestril) 5 mg DAILY PO Last administered on 10/24/16 10:23; Admin Dose 5 MG; Start 10/10/16 at 09:00 Al Hydroxide/Mg Trisilicate (Gaviscon) 1 tab TID PRN PO HEARTBURN Last administered on 10/24/16 16:28; Admin Dose 1 TAB; Start 10/10/16 at 02:00 Simethicone (Mylicon) 160 mg TID PRN PO DISTENSION/GAS/BLOATING Last administered on 10/15/16 23:34; Admin Dose 160 MG; Start 10/12/16 at 15:00 HANG MEDRANO Oct 25, 2016 10:01
[2016-10-25] MEDS: ESCITALOPRAM 10 MG TAB PO SCH (20:21)
[2016-10-25] MEDS: SENNA TAB PO SCH (20:21)
[2016-10-25] MEDS: ATORVASTATIN 80 MG TAB PO SCH (20:21)
[2016-10-25 20:39] VITALS: BP 117/58; RESP 19
[2016-10-26 07:30] VITALS: BP 123/88; RESP 18
[2016-10-26] MEDS: DOCUSATE SODIUM 10 MG/ML (10ML CUP) PO SCH ×2 (09:08→20:44)
[2016-10-26] MEDS: APIXABAN 5 MG TABLET PO SCH ×2 (09:08→20:44)
[2016-10-26] MEDS: MULTIVITAMINS/MINERALS TAB PO SCH (09:08)
[2016-10-26] MEDS: LISINOPRIL 5 MG TAB PO SCH (09:09)
[2016-10-26] MEDS: METOPROLOL 25 MG TAB PO SCH ×2 (09:09→20:44)
[2016-10-26] MEDS: POLYETHYLENE GLYCOL 17 GM PACKET PO SCH (09:09)
[2016-10-26] MEDS: FAMOTIDINE 20 MG TAB PO SCH (09:15)
--- NOTE | 2016-10-26 11:10 | CONS ---
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 D/W FAMILY- PT HAD PELVIC MASS 2 YR AGO ON IMAGING STUDIES AT [facility] on CT AP 10.29.15- MASS 4.6 X.4.6 - RELATIVELY STABLE WILL D/W FAMILY - WOULD NOT PUSH BX FOR NOW Multiple uterine myomas. anemia. We will continue to monitor hemoglobin and hematocrit levels. Incarcerated abdominal hernia POST OP History of cerebrovascular accident with left-sided hemiparesis. ON full anticoagulation. History of coronary artery disease, continue medical management. Hypertension. Blood pressure is currently controlled. We will continue to monitor. We will resume blood pressure medications once the patient is tolerating p.o. History of dyslipidemia. Continue statin therapy. Gastrointestinal and deep venous thrombosis prophylaxis. Continue Pepcid and heparin. General debility. CONT PT Problems: Consultation Date/Type/Reason Admit Date/Time Oct 09, 2016 at 16:20 Initial Consult Date 10/10/16 Type of Consultation: 10.10.16 Referring Provider: MEGAN FLORES DO 24 HR Interval Summary Free Text/Dictation all noted no new events no bleeding no hemolysis Exam/Review of Systems Vital Signs Vitals Vital Signs Date Time Temp Pulse Resp B/P Pulse Ox O2 Delivery O2 Flow Rate FiO2 10/25/16 20:39 98.0 80 19 117/58 98 10/25/16 09:09 Room Air Intake and Output 10/25/16 10/25/16 10/26/16 15:00 23:00 07:00 Intake Total 1580 ml Output Total 550 ml 300 ml Balance 1030 ml -300 ml Exam HEENT: Head is normocephalic. NECK: Supple. HEART: Regular rate. LUNGS: Show diminished breath sounds at the base. ABDOMEN: Soft, nontender to palpation without rebound or guarding. EXTREMITIES: Negative for clubbing, cyanosis, no edema. DERMATOLOGIC: No rashes. MUSCULOSKELETAL: No joint effusions. NEUROLOGIC: No change in exam. Medications Medications Current Medications Acetaminophen (Tylenol Tab) 650 mg Q4H PRN PO FOR PAIN 1-5/10 Last administered on 10/25/16 03:48; Admin Dose 650 MG; Start 10/09/16 at 19:30 Apixaban (Eliquis) 5 mg BID PO Last administered on 10/26/16 09:08; Admin Dose 5 MG; Start 10/09/16 at 21:00 Atorvastatin Calcium (Lipitor) 80 mg QHS PO Last administered on 10/25/16 20: 21; Admin Dose 80 MG; Start 10/09/16 at 21:00 Docusate Sodium (Colace Liquid Cup) 100 mg BID PO Last administered on 09:08; Admin Dose 100 MG; Start 10/09/16 at 21:00 Escitalopram Oxalate (Lexapro) 10 mg QHS PO Last administered on 10/25/16 20: 21; Admin Dose 10 MG; Start 10/09/16 at 21:00 Famotidine (Pepcid) 20 mg DAILY@09 PO Last administered on 10/26/16 09:15; Admin Dose 20 MG; Start 10/10/16 at 09:00 Metoprolol Tartrate (Lopressor) 12.5 mg BID PO Last administered on 10/26/16 09 :09; Admin Dose 12.5 MG; Start 10/09/16 at 21:00 Polyethylene Glycol (Miralax) 17 gm DAILY PO Last administered on 10/26/16 09: 09; Admin Dose 17 GM; Start 10/10/16 at 09:00 Senna (Senokot) 1 tab HS PO Last administered on 10/25/16 20:21; Admin Dose 1 TAB; Start 10/09/16 at 21:00 Bisacodyl (Dulcolax Supp) 10 mg DAILY PRN [place] CONSTIPATION; Start 10/09/16 at 19 :30 Magnesium Hydroxide (Milk Of Mag) 30 ml BID PRN PO CONSTIPATION; Start at 19:30 Lactulose (Enulose) 20 gm DAILY PRN PO CONSTIPATION; Start 10/09/16 at 19:30 Temazepam (Restoril) 15 mg HS PRN PO INSOMNIA Last administered on 10/24/16 23 :32; Admin Dose 15 MG; Start 10/10/16 at 01:55 Multivitamins/ Minerals (Theragran-M) 1 tab DAILY PO Last administered on 09:08; Admin Dose 1 TAB; Start 10/10/16 at 09:00 Lisinopril (Zestril) 5 mg DAILY PO Last administered on 10/26/16 09:09; Admin Dose 5 MG; Start 10/10/16 at 09:00 Al Hydroxide/Mg Trisilicate (Gaviscon) 1 tab TID PRN PO HEARTBURN Last administered on 10/24/16 16:28; Admin Dose 1 TAB; Start 10/10/16 at 02:00 Simethicone (Mylicon) 160 mg TID PRN PO DISTENSION/GAS/BLOATING Last administered on 10/15/16 23:34; Admin Dose 160 MG; Start 10/12/16 at 15:00 TERRA RANGEL MD October 26, 2016 11:10
--- NOTE | 2016-10-26 12:19 | CONS ---
Date/Time of Note Date/Time of Note DATE: 10/26/16 TIME: 12:19 Consult Date/Type/Reason Admit Date/Time Oct 09, 2016 at 16:20 Initial Consult Date 10/10/16 Type of Consultation: 10.10.16 Ordering Provider: MEGAN FLORES DO Objective Vital Signs Date Time Temp Pulse Resp B/P Pulse Ox O2 Delivery O2 Flow Rate FiO2 10/25/16 20:39 98.0 80 19 117/58 98 10/25/16 09:09 Room Air Intake and Output 10/25/16 10/25/16 10/26/16 14:59 22:59 06:59 Intake Total 1580 ml Output Total 550 ml 300 ml Balance 1030 ml -300 ml INTERDISCIPLINARY TEAM CONFERENCE BOWEL- Cont BLADDER-Cont SKIN- intact OT- DRESSING-min BATHING-min TOILETING-min PT- BED MOBILITY-min TRANSFERS-min AMBULATION-cga 60 feet A/P- Interdisciplinary team conference held today. Please see interdisciplinary sheet. Working toward d.c. on 10/28 with post discharge follow up of physical therapy, occupational therapy. Results/Medications Medications Current Medications Acetaminophen (Tylenol Tab) 650 mg Q4H PRN PO FOR PAIN -11/04 Last administered on 10/25/16 03:48; Admin Dose 650 MG; Start 10/09/16 at 19:30 Apixaban (Eliquis) 5 mg BID PO Last administered on 10/26/16 09:08; Admin Dose 5 MG; Start 10/09/16 at 21:00 Atorvastatin Calcium (Lipitor) 80 mg QHS PO Last administered on 10/25/16 20: 21; Admin Dose 80 MG; Start 10/09/16 at 21:00 Docusate Sodium (Colace Liquid Cup) 100 mg BID PO Last administered on 09:08; Admin Dose 100 MG; Start 10/09/16 at 21:00 Escitalopram Oxalate (Lexapro) 10 mg QHS PO Last administered on 10/25/16 20: 21; Admin Dose 10 MG; Start 10/09/16 at 21:00 Famotidine (Pepcid) 20 mg DAILY@09 PO Last administered on 10/26/16 09:15; Admin Dose 20 MG; Start 10/10/16 at 09:00 Metoprolol Tartrate (Lopressor) 12.5 mg BID PO Last administered on 10/26/16 09 :09; Admin Dose 12.5 MG; Start 10/09/16 at 21:00 Polyethylene Glycol (Miralax) 17 gm DAILY PO Last administered on 10/26/16 09: 09; Admin Dose 17 GM; Start 10/10/16 at 09:00 Senna (Senokot) 1 tab HS PO Last administered on 10/25/16 20:21; Admin Dose 1 TAB; Start 10/09/16 at 21:00 Bisacodyl (Dulcolax Supp) 10 mg DAILY PRN [place] CONSTIPATION; Start 10/09/16 at 19 :30 Magnesium Hydroxide (Milk Of Mag) 30 ml BID PRN PO CONSTIPATION; Start at 19:30 Lactulose (Enulose) 20 gm DAILY PRN PO CONSTIPATION; Start 10/09/16 at 19:30 Temazepam (Restoril) 15 mg HS PRN PO INSOMNIA Last administered on 10/24/16 23 :32; Admin Dose 15 MG; Start 10/10/16 at 01:55 Multivitamins/ Minerals (Theragran-M) 1 tab DAILY PO Last administered on 09:08; Admin Dose 1 TAB; Start 10/10/16 at 09:00 Lisinopril (Zestril) 5 mg DAILY PO Last administered on 10/26/16 09:09; Admin Dose 5 MG; Start 10/10/16 at 09:00 Al Hydroxide/Mg Trisilicate (Gaviscon) 1 tab TID PRN PO HEARTBURN Last administered on 10/24/16 16:28; Admin Dose 1 TAB; Start 10/10/16 at 02:00 Simethicone (Mylicon) 160 mg TID PRN PO DISTENSION/GAS/BLOATING Last administered on 10/15/16 23:34; Admin Dose 160 MG; Start 10/12/16 at 15:00 FARIDEH COOK MD October 26, 2016 12:19 FARIDEH COOK MD October 26, 2016 12:19
--- NOTE | 2016-10-26 13:47 | PN ---
DATE: 10/26/2016 SUBJECTIVE: The patient is stable. No events overnight. No fevers, chills, nausea or vomiting. OBJECTIVE: VITAL SIGNS: Blood pressure 117/58, respiration is 19, pulse 60, temperature 98.0. HEENT: Head is normocephalic. NECK: Supple. HEART: Regular rate. LUNGS: Show diminished breath sounds at the base. ABDOMEN: Soft, nontender to palpation without rebound or guarding. EXTREMITIES: Negative for clubbing, cyanosis, no edema. DERMATOLOGIC: No rashes. MUSCULOSKELETAL: No joint effusions. NEUROLOGIC: No change in exam. MEDICATIONS: Have been reviewed. LABORATORY DATA: Has been reviewed. ASSESSMENT AND PLAN: 1. Incarcerated abdominal hernia status post laparoscopic repair. The patient is currently stable. Continue PT, OT. 2. 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 The patient has been evaluated by electric cutter operator, Dr. Huntley. No plan for intervention. Continue to monitor. 3. Cerebrovascular accident with left-sided hemiparesis. Continue medical management. 4. Hypertension. Continue current blood pressure regimen. 5. Dyslipidemia. Continue statin therapy. 6. Anemia. Continue to monitor hemoglobin and hematocrit levels. 7. Gastrointestinal and deep venous thrombosis prophylaxis. Continue proton pump inhibitor and Ciara elyse. 8. General debility. Continue PT, OT. Dictated By: MEGAN SILVA/JOSÉ ANTONIO Conf#: [id number] DID#: [id number]
[2016-10-26] MEDS: AL HYDROX/MG TRISILICATE TAB PO PRN (19:42)
[2016-10-26 20:11] VITALS: BP 116/71; RESP 18
[2016-10-26] MEDS: ESCITALOPRAM 10 MG TAB PO SCH (20:43)
[2016-10-26] MEDS: SENNA TAB PO SCH (20:44)
[2016-10-26] MEDS: ATORVASTATIN 80 MG TAB PO SCH (20:44)
[2016-10-27 08:06] VITALS: BP 116/75; RESP 18
[2016-10-27] MEDS: DOCUSATE SODIUM 10 MG/ML (10ML CUP) PO SCH ×2 (09:00→20:41)
[2016-10-27] MEDS: LISINOPRIL 5 MG TAB PO SCH (09:00)
[2016-10-27] MEDS: METOPROLOL 25 MG TAB PO SCH ×2 (09:16→20:41)
[2016-10-27] MEDS: APIXABAN 5 MG TABLET PO SCH ×2 (09:16→20:41)
[2016-10-27] MEDS: MULTIVITAMINS/MINERALS TAB PO SCH (09:16)
[2016-10-27] MEDS: POLYETHYLENE GLYCOL 17 GM PACKET PO SCH (09:17)
[2016-10-27] MEDS: FAMOTIDINE 20 MG TAB PO SCH (09:17)
--- NOTE | 2016-10-27 11:38 | PN ---
DATE: 10/27/2016 SUBJECTIVE: The patient is stable, no acute events overnight. No fevers, chills, nausea, vomiting. OBJECTIVE: VITAL SIGNS: Blood pressure 116/75, respiration 18, pulse 70, temperature 97.9. HEENT: Head is normocephalic. NECK: Supple. HEART: Regular rate. LUNGS: Show diminished breath sounds at base. ABDOMEN: Soft, nontender to palpation. No rebound or guarding. EXTREMITIES: Negative for clubbing, cyanosis, no edema. DERMATOLOGIC: No rashes. MUSCULOSKELETAL: No joint effusions. NEUROLOGIC: No change in exam. MEDICATIONS: The patient's medications have been reviewed. LABORATORY DATA: Have been reviewed. ASSESSMENT AND PLAN: 1. Incarcerated abdominal hernia status post laparoscopic therapy is currently stable. Continue PT , OT. 2. 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 The patient has been evaluated by Dr. Huntley no plan for intervention. Continue to monitor. 3. Cerebrovascular accident with left-sided hemiparesis. Continue medical management. 4. Hypertension. Continue current blood pressure regimen. 5. Dyslipidemia. Continue statin therapy. 6. Anemia. Continue to monitor hemoglobin and hematocrit levels. 7. General debility. Continue PT, OT. 8. Gastrointestinal prophylaxis, continue PPI and Eliquis. Dictated By: MEGAN SILVA/JOSÉ ANTONIO Conf#: [id number] DID#: [id number]
--- NOTE | 2016-10-27 12:08 | CONS ---
Date/Time of Note Date/Time of Note DATE: 10/27/16 TIME: 12:08 Consult Date/Type/Reason Admit Date/Time Oct 09, 2016 at 16:20 Initial Consult Date 10/10/16 Type of Consultation: 4.15.17 Ordering Provider: MEGAN FLORES DO Subjective Overall improved Objective pulm-cta ambulation 60 feet Vital Signs Date Time Temp Pulse Resp B/P Pulse Ox O2 Delivery O2 Flow Rate FiO2 10/27/16 08:06 97.9 90 18 116/75 96 10/25/16 09:09 Room Air Intake and Output 10/26/16 10/26/16 10/27/16 15:00 23:00 07:00 Intake Total 960 ml 800 ml Balance 960 ml 800 ml Results/Medications Medications Current Medications Acetaminophen (Tylenol Tab) 650 mg Q4H PRN PO FOR PAIN -11/04 Last administered on 10/25/16 03:48; Admin Dose 650 MG; Start 10/09/16 at 19:30 Apixaban (Eliquis) 5 mg BID PO Last administered on 10/27/16 09:16; Admin Dose 5 MG; Start 10/09/16 at 21:00 Atorvastatin Calcium (Lipitor) 80 mg QHS PO Last administered on 10/26/16 20:44 ; Admin Dose 80 MG; Start 10/09/16 at 21:00 Docusate Sodium (Colace Liquid Cup) 100 mg BID PO Last administered on 20:44; Admin Dose 100 MG; Start 10/09/16 at 21:00 Escitalopram Oxalate (Lexapro) 10 mg QHS PO Last administered on 10/26/16 20:43 ; Admin Dose 10 MG; Start 10/09/16 at 21:00 Famotidine (Pepcid) 20 mg DAILY@09 PO Last administered on 10/27/16 09:17; Admin Dose 20 MG; Start 10/10/16 at 09:00 Metoprolol Tartrate (Lopressor) 12.5 mg BID PO Last administered on 10/27/16 09 :16; Admin Dose 12.5 MG; Start 10/09/16 at 21:00 Polyethylene Glycol (Miralax) 17 gm DAILY PO Last administered on 10/27/16 09: 17; Admin Dose 17 GM; Start 10/10/16 at 09:00 Senna (Senokot) 1 tab HS PO Last administered on 10/26/16 20:44; Admin Dose 1 TAB; Start 10/09/16 at 21:00 Bisacodyl (Dulcolax Supp) 10 mg DAILY PRN [place] CONSTIPATION; Start 10/09/16 at 19 :30 Magnesium Hydroxide (Milk Of Mag) 30 ml BID PRN PO CONSTIPATION; Start at 19:30 Lactulose (Enulose) 20 gm DAILY PRN PO CONSTIPATION; Start 10/09/16 at 19:30 Temazepam (Restoril) 15 mg HS PRN PO INSOMNIA Last administered on 10/24/16 23 :32; Admin Dose 15 MG; Start 10/10/16 at 01:55 Multivitamins/ Minerals (Theragran-M) 1 tab DAILY PO Last administered on 09:16; Admin Dose 1 TAB; Start 10/10/16 at 09:00 Lisinopril (Zestril) 5 mg DAILY PO Last administered on 10/26/16 09:09; Admin Dose 5 MG; Start 10/10/16 at 09:00 Al Hydroxide/Mg Trisilicate (Gaviscon) 1 tab TID PRN PO HEARTBURN Last administered on 10/26/16 19:42; Admin Dose 1 TAB; Start 10/10/16 at 02:00 Simethicone (Mylicon) 160 mg TID PRN PO DISTENSION/GAS/BLOATING Last administered on 10/15/16 23:34; Admin Dose 160 MG; Start 10/12/16 at 15:00 Assessment/Plan Additional Assessment/Plan Rehab- R Infarct CVA Overall steady progress. Anticipate dc tomorrow Dyphagia- improved s/p lap repair of abd hernia CAD HTn R actebular soft tissue mass FARIDEH COOK MD October 27, 2016 12:08
--- NOTE | 2016-10-27 17:48 | CONS ---
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 D/W FAMILY- PT HAD PELVIC MASS 2 YR AGO ON IMAGING STUDIES AT [facility] on CT AP 10.29.15- MASS 4.6 X.4.6 - RELATIVELY STABLE D/W FAMILY - NO BX FOR NOW Multiple uterine myomas. anemia. We will continue to monitor hemoglobin and hematocrit levels. Incarcerated abdominal hernia POST OP History of cerebrovascular accident with left-sided hemiparesis. ON full anticoagulation. History of coronary artery disease, continue medical management. Hypertension. Blood pressure is currently controlled. We will continue to monitor. We will resume blood pressure medications once the patient is tolerating p.o. History of dyslipidemia. Continue statin therapy. Gastrointestinal and deep venous thrombosis prophylaxis. Continue Pepcid and heparin. General debility. CONT PT Problems: Consultation Date/Type/Reason Admit Date/Time Oct 09, 2016 at 16:20 Initial Consult Date 10/10/16 Type of Consultation: 10.10.16 Referring Provider: MEGAN FLORES DO 24 HR Interval Summary Free Text/Dictation ALL NOTED NO NEW EVENTS Exam/Review of Systems Vital Signs Vitals Vital Signs Date Time Temp Pulse Resp B/P Pulse Ox O2 Delivery O2 Flow Rate FiO2 10/27/16 08:06 97.9 90 18 116/75 96 10/25/16 09:09 Room Air Intake and Output 10/26/16 10/26/16 10/27/16 15:00 23:00 07:00 Intake Total 960 ml 800 ml Balance 960 ml 800 ml Exam The patient is stable, no acute events overnight. No fevers, chills, nausea, vomiting. OBJECTIVE: HEENT: Head is normocephalic. NECK: Supple. HEART: Regular rate. LUNGS: Show diminished breath sounds at base. ABDOMEN: Soft, nontender to palpation. No rebound or guarding. EXTREMITIES: Negative for clubbing, cyanosis, no edema. DERMATOLOGIC: No rashes. MUSCULOSKELETAL: No joint effusions. NEUROLOGIC: No change in exam. Medications Medications Current Medications Acetaminophen (Tylenol Tab) 650 mg Q4H PRN PO FOR PAIN -11/04 Last administered on 10/25/16 03:48; Admin Dose 650 MG; Start 10/09/16 at 19:30 Apixaban (Eliquis) 5 mg BID PO Last administered on 10/27/16 09:16; Admin Dose 5 MG; Start 10/09/16 at 21:00 Atorvastatin Calcium (Lipitor) 80 mg QHS PO Last administered on 10/26/16 20:44 ; Admin Dose 80 MG; Start 10/09/16 at 21:00 Docusate Sodium (Colace Liquid Cup) 100 mg BID PO Last administered on 20:44; Admin Dose 100 MG; Start 10/09/16 at 21:00 Escitalopram Oxalate (Lexapro) 10 mg QHS PO Last administered on 10/26/16 20:43 ; Admin Dose 10 MG; Start 10/09/16 at 21:00 Famotidine (Pepcid) 20 mg DAILY@09 PO Last administered on 10/27/16 09:17; Admin Dose 20 MG; Start 10/10/16 at 09:00 Metoprolol Tartrate (Lopressor) 12.5 mg BID PO Last administered on 10/27/16 09 :16; Admin Dose 12.5 MG; Start 10/09/16 at 21:00 Polyethylene Glycol (Miralax) 17 gm DAILY PO Last administered on 10/27/16 09: 17; Admin Dose 17 GM; Start 10/10/16 at 09:00 Senna (Senokot) 1 tab HS PO Last administered on 10/26/16 20:44; Admin Dose 1 TAB; Start 10/09/16 at 21:00 Bisacodyl (Dulcolax Supp) 10 mg DAILY PRN [place] CONSTIPATION; Start 10/09/16 at 19 :30 Magnesium Hydroxide (Milk Of Mag) 30 ml BID PRN PO CONSTIPATION; Start at 19:30 Lactulose (Enulose) 20 gm DAILY PRN PO CONSTIPATION; Start 10/09/16 at 19:30 Temazepam (Restoril) 15 mg HS PRN PO INSOMNIA Last administered on 10/24/16 23 :32; Admin Dose 15 MG; Start 10/10/16 at 01:55 Multivitamins/ Minerals (Theragran-M) 1 tab DAILY PO Last administered on 09:16; Admin Dose 1 TAB; Start 10/10/16 at 09:00 Lisinopril (Zestril) 5 mg DAILY PO Last administered on 10/26/16 09:09; Admin Dose 5 MG; Start 10/10/16 at 09:00 Al Hydroxide/Mg Trisilicate (Gaviscon) 1 tab TID PRN PO HEARTBURN Last administered on 10/26/16 19:42; Admin Dose 1 TAB; Start 10/10/16 at 02:00 Simethicone (Mylicon) 160 mg TID PRN PO DISTENSION/GAS/BLOATING Last administered on 10/15/16 23:34; Admin Dose 160 MG; Start 10/12/16 at 15:00 TERRA RANGEL MD October 27, 2016 17:48
[2016-10-27 20:00] VITALS: BP 112/63; RESP 19
[2016-10-27] MEDS: ESCITALOPRAM 10 MG TAB PO SCH (20:41)
[2016-10-27] MEDS: SENNA TAB PO SCH (20:41)
[2016-10-27] MEDS: ATORVASTATIN 80 MG TAB PO SCH (20:41)
[2016-10-27] MEDS: AL HYDROX/MG TRISILICATE TAB PO PRN (22:22)
[2016-10-28] MEDS: AL HYDROX/MG TRISILICATE TAB PO PRN (04:35)
[2016-10-28] MEDS: LISINOPRIL 5 MG TAB PO SCH (09:00)
[2016-10-28] MEDS: DOCUSATE SODIUM 10 MG/ML (10ML CUP) PO SCH (09:00)
[2016-10-28] MEDS: METOPROLOL 25 MG TAB PO SCH (09:00)
--- NOTE | 2016-10-28 09:24 | CONS ---
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 D/W FAMILY- PT HAD PELVIC MASS 2 YR AGO ON IMAGING STUDIES AT [facility] on CT AP 10.29.15- MASS 4.6 X.4.6 - RELATIVELY STABLE D/W FAMILY - NO BX FOR NOW Multiple uterine myomas. anemia. We will continue to monitor hemoglobin and hematocrit levels. Incarcerated abdominal hernia POST OP History of cerebrovascular accident with left-sided hemiparesis. ON full anticoagulation. History of coronary artery disease, continue medical management. Hypertension. Blood pressure is currently controlled. We will continue to monitor. We will resume blood pressure medications once the patient is tolerating p.o. History of dyslipidemia. Continue statin therapy. Gastrointestinal and deep venous thrombosis prophylaxis. Continue Pepcid and heparin. General debility. CONT PT dc per dr Bloom Problems: Consultation Date/Type/Reason Admit Date/Time Oct 09, 2016 at 16:20 Initial Consult Date 10/10/16 Type of Consultation: 10.10.16 Referring Provider: MEGAN BLOOM DO 24 HR Interval Summary Free Text/Dictation The patient is stable, no acute events overnight. No fevers, chills, nausea, vomiting. Exam/Review of Systems Vital Signs Vitals Vital Signs Date Time Temp Pulse Resp B/P Pulse Ox O2 Delivery O2 Flow Rate FiO2 10/27/16 20:00 97.9 79 19 112/63 95 10/25/16 09:09 Room Air Intake and Output 10/27/16 10/27/16 10/28/16 15:00 23:00 07:00 Intake Total 1260 ml 620 ml 750 ml Balance 1260 ml 620 ml 750 ml Exam OBJECTIVE: HEENT: Head is normocephalic. NECK: Supple. HEART: Regular rate. LUNGS: Show diminished breath sounds at base. ABDOMEN: Soft, nontender to palpation. No rebound or guarding. EXTREMITIES: Negative for clubbing, cyanosis, no edema. DERMATOLOGIC: No rashes. MUSCULOSKELETAL: No joint effusions. NEUROLOGIC: No change in exam. Medications Medications Current Medications Acetaminophen (Tylenol Tab) 650 mg Q4H PRN PO FOR PAIN -11/04 Last administered on 10/25/16 03:48; Admin Dose 650 MG; Start 10/09/16 at 19:30 Apixaban (Eliquis) 5 mg BID PO Last administered on 10/27/16 20:41; Admin Dose 5 MG; Start 10/09/16 at 21:00 Atorvastatin Calcium (Lipitor) 80 mg QHS PO Last administered on 10/27/16 20:41 ; Admin Dose 80 MG; Start 10/09/16 at 21:00 Docusate Sodium (Colace Liquid Cup) 100 mg BID PO Last administered on 20:41; Admin Dose 100 MG; Start 10/09/16 at 21:00 Escitalopram Oxalate (Lexapro) 10 mg QHS PO Last administered on 10/27/16 20:41 ; Admin Dose 10 MG; Start 10/09/16 at 21:00 Famotidine (Pepcid) 20 mg DAILY@09 PO Last administered on 10/27/16 09:17; Admin Dose 20 MG; Start 10/10/16 at 09:00 Metoprolol Tartrate (Lopressor) 12.5 mg BID PO Last administered on 10/27/16 20 :41; Admin Dose 12.5 MG; Start 10/09/16 at 21:00 Polyethylene Glycol (Miralax) 17 gm DAILY PO Last administered on 10/27/16 09: 17; Admin Dose 17 GM; Start 10/10/16 at 09:00 Senna (Senokot) 1 tab HS PO Last administered on 10/27/16 20:41; Admin Dose 1 TAB; Start 10/09/16 at 21:00 Bisacodyl (Dulcolax Supp) 10 mg DAILY PRN [place] CONSTIPATION; Start 10/09/16 at 19 :30 Magnesium Hydroxide (Milk Of Mag) 30 ml BID PRN PO CONSTIPATION; Start at 19:30 Lactulose (Enulose) 20 gm DAILY PRN PO CONSTIPATION; Start 10/09/16 at 19:30 Temazepam (Restoril) 15 mg HS PRN PO INSOMNIA Last administered on 10/24/16 23 :32; Admin Dose 15 MG; Start 10/10/16 at 01:55 Multivitamins/ Minerals (Theragran-M) 1 tab DAILY PO Last administered on 09:16; Admin Dose 1 TAB; Start 10/10/16 at 09:00 Lisinopril (Zestril) 5 mg DAILY PO Last administered on 10/26/16 09:09; Admin Dose 5 MG; Start 10/10/16 at 09:00 Al Hydroxide/Mg Trisilicate (Gaviscon) 1 tab TID PRN PO HEARTBURN Last administered on 10/28/16 04:35; Admin Dose 1 TAB; Start 10/10/16 at 02:00 Simethicone (Mylicon) 160 mg TID PRN PO DISTENSION/GAS/BLOATING Last administered on 10/15/16 23:34; Admin Dose 160 MG; Start 10/12/16 at 15:00 TERRA RANGEL MD October 28, 2016 09:24
[2016-10-28] MEDS: POLYETHYLENE GLYCOL 17 GM PACKET PO SCH (09:28)
[2016-10-28] MEDS: MULTIVITAMINS/MINERALS TAB PO SCH (09:28)
[2016-10-28] MEDS: FAMOTIDINE 20 MG TAB PO SCH (09:29)
[2016-10-28] MEDS: APIXABAN 5 MG TABLET PO SCH (09:29)
--- NOTE | 2016-10-28 09:38 | CONS ---
Date/Time of Note Date/Time of Note DATE: 10/28/16 TIME: 09:38 Consult Date/Type/Reason Admit Date/Time Oct 09, 2016 at 16:20 Initial Consult Date 10/10/16 Type of Consultation: 10.10.16 Ordering Provider: MEGAN FLORES pt. seen and examined going to snf for further help with ADL's PE: HEENT: Head is normocephalic. NECK: Supple. HEART: Regular rate. LUNGS: Show diminished breath sounds at the base. ABDOMEN: Soft, nontender to palpation, no rebound or guarding. EXTREMITIES: Positive for bilateral AKA. DERMATOLOGIC: No rashes. MUSCULOSKELETAL: No joint effusions. NEUROLOGIC: No change in exam. Objective Vital Signs Date Time Temp Pulse Resp B/P Pulse Ox O2 Delivery O2 Flow Rate FiO2 10/27/16 20:00 97.9 79 19 112/63 95 10/25/16 09:09 Room Air Intake and Output 10/27/16 10/27/16 10/28/16 15:00 23:00 07:00 Intake Total 1260 ml 620 ml 750 ml Balance 1260 ml 620 ml 750 ml Results/Medications Medications Current Medications Acetaminophen (Tylenol Tab) 650 mg Q4H PRN PO FOR PAIN -11/04 Last administered on 10/25/16 03:48; Admin Dose 650 MG; Start 10/09/16 at 19:30 Apixaban (Eliquis) 5 mg BID PO Last administered on 10/28/16 09:29; Admin Dose 5 MG; Start 10/09/16 at 21:00 Atorvastatin Calcium (Lipitor) 80 mg QHS PO Last administered on 10/27/16 20:41 ; Admin Dose 80 MG; Start 10/09/16 at 21:00 Docusate Sodium (Colace Liquid Cup) 100 mg BID PO Last administered on 20:41; Admin Dose 100 MG; Start 10/09/16 at 21:00 Escitalopram Oxalate (Lexapro) 10 mg QHS PO Last administered on 10/27/16 20:41 ; Admin Dose 10 MG; Start 10/09/16 at 21:00 Famotidine (Pepcid) 20 mg DAILY@ PO Last administered on 10/28/16 09:29; Admin Dose 20 MG; Start 10/10/16 at 09:00 Metoprolol Tartrate (Lopressor) 12.5 mg BID PO Last administered on 10/27/16 20 :41; Admin Dose 12.5 MG; Start 10/09/16 at 21:00 Polyethylene Glycol (Miralax) 17 gm DAILY PO Last administered on 10/28/16 09: 28; Admin Dose 17 GM; Start 10/10/16 at 09:00 Senna (Senokot) 1 tab HS PO Last administered on 10/27/16 20:41; Admin Dose 1 TAB; Start 10/09/16 at 21:00 Bisacodyl (Dulcolax Supp) 10 mg DAILY PRN [place] CONSTIPATION; Start 10/09/16 at 19 :30 Magnesium Hydroxide (Milk Of Mag) 30 ml BID PRN PO CONSTIPATION; Start at 19:30 Lactulose (Enulose) 20 gm DAILY PRN PO CONSTIPATION; Start 10/09/16 at 19:30 Temazepam (Restoril) 15 mg HS PRN PO INSOMNIA Last administered on 10/24/16 23 :32; Admin Dose 15 MG; Start 10/10/16 at 01:55 Multivitamins/ Minerals (Theragran-M) 1 tab DAILY PO Last administered on 09:28; Admin Dose 1 TAB; Start 10/10/16 at 09:00 Lisinopril (Zestril) 5 mg DAILY PO Last administered on 10/26/16 09:09; Admin Dose 5 MG; Start 10/10/16 at 09:00 Al Hydroxide/Mg Trisilicate (Gaviscon) 1 tab TID PRN PO HEARTBURN Last administered on 10/28/16 04:35; Admin Dose 1 TAB; Start 10/10/16 at 02:00 Simethicone (Mylicon) 160 mg TID PRN PO DISTENSION/GAS/BLOATING Last administered on 10/15/16 23:34; Admin Dose 160 MG; Start 10/12/16 at 15:00 Assessment/Plan Chief Complaint/Hosp Course 1. Incarcerated abdominal hernia status post laparoscopic repair. The patient is currently stable. Continue PT, OT. 2. 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 The patient has been evaluated by plane runner, Dr. Huntley. No plan for intervention at this time. 3. Cerebrovascular accident with left-sided hemiparesis. Continue medical management. 4. Hypertension. Continue current blood pressure regimen. 5. Dyslipidemia. Continue statin therapy. 6. Anemia. Continue to monitor hemoglobin and hematocrit levels. 7. Gastrointestinal and deep venous thrombosis prophylaxis. Continue proton pump inhibitor and Eliquis. 8. General debility. Continue PT, OT. Problems: JAIV BELTRÁN MD October 28, 2016 09:38
--- NOTE | 2016-10-28 20:13 | PN ---
DATE: 10/28/2016 PSYCHOLOGY--INDIVIDUAL SESSION--[id number] This is a followup on a patient who was seen last week. The patient was seen sitting up in her whee lchair. The patient reports that she has made progress while in the program. The patient is prepar ing for discharge today. The patient is still feeling that she has a ways to go, that she wants to be able to increase her overall level of functioning. The patient is still having issues with her e motions surrounding her physical disability. The patient still does have some left-sided paralysis, and she is upset about her inability to function as she would like. I worked with the patient supportively try to help encourage her to continue to work on herself when she leaves the hospital both emotionally and physically. Dictated By: SNEHA JACKSON PHD LEO/JOSÉ ANTONIO Conf#: [id number] DID#: [id number]
--- NOTE | 2016-10-29 13:43 | DS ---
DATE OF ADMISSION: 10/09/2016 DATE OF DISCHARGE: 10/28/2016 REHABILITATION DISCHARGE SUMMARY ADMISSION DIAGNOSES 1. 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 2. Dysphagia. 3. Status post laparoscopic repair of abdominal hernia. 4. Coronary artery disease. 5. Hypertension. 6. Dyslipidemia. 7. Soft tissue mass in the right acetabulum. 8. Impairments in self-care, mobility and cognition. DISCHARGE DIAGNOSES: 1. 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 2. Dysphagia. 3. Status post laparoscopic repair of abdominal hernia. 4. Coronary artery disease. 5. Hypertension. 6. Dyslipidemia. 7. Soft tissue mass in the right acetabulum. 8. Improvements in self-care, mobility and cognition. HOSPITAL COURSE: The patient was admitted for comprehensive interdisciplinary acute rehab and made excellent functional gains during the course of the stay. The patient progressed to a minimal to co ntact guard assist level for all areas of self-care and mobility including ambulating over 100 feet with the use of a front-wheel walker. The patient's cognition also significantly improved. The pat ient now able to tolerate lower level of care and is being discharged to [facility] facility. DISCHARGE MEDICATIONS: Per the medication reconciliation sheet. CONDITION ON DISCHARGE: Stable. Dictated By: FARIDEH FREEMAN/JOSÉ ANTONIO Conf#: [id number] DID#: [id number]
== END 2016-10-28 13:15 | disposition home health service (06) | DRG 57 ==
LOC: VRC 16:20
PROVIDERS: ADMIT Physical Medicine & Rehabilitation; ATTEND Physical Medicine & Rehabilitation
DX: I69.354 Hemiplegia and hemiparesis following cerebral infarction affecting left non-dominant side (principal); F33.1 Major depressive disorder, recurrent, moderate; I10 Essential (primary) hypertension; R13.10 Dysphagia, unspecified; I25.10 Atherosclerotic heart disease of native coronary artery without angina pectoris; E78.5 Hyperlipidemia, unspecified; G31.84 Mild cognitive impairment of uncertain or unknown etiology; Z74.09 Other reduced mobility; R22.9 Localized swelling, mass and lump, unspecified; Z48.815 Encounter for surgical aftercare following surgery on the digestive system
CPT/HCPCS: 72197; 80048; 80053; 82962; 83735; 84100; 85025; 87081; 87086; 92507; 92523; 92526; 92610; 97110; 97112; 97116; 97150; 97163; 97167; 97530; 97535; 97542

== ENCOUNTER 2017-02-15 13:33 | Inpatient (IN) | payer MEDICARE, OTHER ==
[~2017-02-15] VITALS: Ht 172.7 cm; Wt 73.5 kg
[2017-02-15] VITALS (7 sets, daily range): BP systolic 121–142; BP diastolic 76–94; PULSE 62–79; RESP 16–18; TEMP 98.4; Ht 172.7 cm; Wt 73.5 kg
[~2017-02-15 13:33] MED LIST changes: -FAMO-18 PO; +FAMO-96 PO
--- NOTE | 2017-02-15 13:39 | ERA ---
ER Documentation Chief Complaint Date/Time DATE: 02/15/17 TIME: 13:38 Chief Complaint Fainting HPI The patient is a 82-year-old female, presenting to the ER because of generalized weakness for 3 days and episodes of fainting since going to the son today. She does not have any trauma, seizure activity, neck pain, chest pain, dyspnea, abdominal pain, vomiting, dysuria, diarrhea. She does not smoke nor drink Past medical history: History of CVA with left hemiparalysis, hypertension, dyslipidemia, CAD Past surgical history: Appendectomy, right inguinal herniorrhaphy ROS All systems reviewed and are negative except as per history of present illness. Medications Home Meds Reported Medications Lactulose (Generlac) 10 Gm/15 Ml Solution, 30 ML PO TID 02/15/17 Donepezil* (Donepezil*) 23 Mg Tablet, 23 MG PO DAILY, #30 TAB 02/15/17 Meclizine Hcl* (Meclizine Hcl*) 25 Mg Tablet, 25 MG PO DAILY Y for DIZZINESS, TAB 02/15/17 Esomeprazole Mag Trihydrate (Nexium) 40 Mg Capsule.dr, 40 MG PO DAILY, #30 CAP 02/15/17 Fzrjcy-Akwwfecu-Njpwads* (Creon DR* 3,000) 3,000 L-9,500-15,000 Unit Capsule.dr , 1 CAP PO WITH MEALS, CAP 02/15/17 Rivaroxaban* (Xarelto*) 20 Mg Tablet, 20 MG PO WITH DINNER, TAB 02/15/17 Simethicone* (Mylicon*) 80 Mg Tab, 160 MG PO TID Y for STOMACH UPSET, TAB 02/15/17 Metoprolol Succinate* (Toprol XL*) 25 Mg Tab.sr.24h, 12.5 MG PO BID, #30 TAB HOLD FOR SBP<110 02/15/17 Temazepam* (Temazepam*) 15 Mg Capsule, 15 MG PO HS Y for INSOMNIA, CAP 10/05/16 Escitalopram Oxalate* (Lexapro*) 10 Mg Tablet, 10 MG PO QHS, #30 TAB 10/05/16 Polyethylene Glycol* (Miralax*) 17 Gm Powd.pack, 17 GM PO DAILY, #30 PACKET 10/05/16 Lisinopril* (Lisinopril*) 5 Mg Tablet, 5 MG PO DAILY, #30 TAB HOLD IF SBP<110 10/05/16 Docusate Sodium* (Colace*) 100 Mg Capsule, 100 MG PO BID, #60 CAP 10/05/16 Atorvastatin* (Atorvastatin*) 80 Mg Tablet, 80 MG PO QHS, #30 TAB 10/05/16 Discontinued Reported Medications Sod Phosphate/Sod Biphosphate* (Fleet* Enema Pediatric) 66.6 Ml Soln, 66.6 ML SD Q2DAYS Y for CONSTIPATION, ENEMA 10/05/16 Bisacodyl* (Bisacodyl*) 10 Mg Supp, 10 MG SD Q24H Y for PRN, SUPP 10/05/16 Magnesium Hydroxide* (Milk Of Magnesia*) 400 Mg/5 Ml Oral.susp, 30 ML PO Q24H Y for PRN, ML 10/05/16 Multivitamin with Minerals (Multivitamins with Minerals) 1 Each Tablet, 1 EACH PO DAILY, TAB 10/05/16 Acetaminophen* (Acetaminophen*) 325 Mg Tablet, 650 MG PO Q4H Y for FOR PAIN -, #30 TAB 10/05/16 Metoprolol Tartrate* (Lopressor*) 25 Mg Tab, 12.5 MG PO BID, #60 TAB HOLD IF SBP<110 10/05/16 Simethicone* (Phazyme*) 125 Mg Tab.chew, 125 MG PO QHS Y for DISTENSION/GAS/ BLOATING, TAB.CHEW 10/05/16 Famotidine* (Pepcid*) 20 Mg Tablet, 20 MG PO BID, #60 TAB 10/05/16 Apixaban* (Eliquis*) 5 Mg Tablet, 5 MG PO BID, TAB 10/05/16 Magnesium Carbonate/Al Hydrox (Gaviscon Es Tablet Chew) 1 Each Tab.chew, 1 EACH PO TID Y for PRN, TAB.CHEW 10/05/16 Lactose-Free Food (ENSURE LIQUID) 237 Ml Liquid, 237 ML PO BID 10/05/16 Allergies Allergies: Coded Allergies: No Known Allergy (Unverified , 02/15/17) PMhx/Soc Anesthesia Reaction: No Hx Neurological Disorder: No Hx Respiratory Disorders: Yes (STROKE 10 YRS AGO) Hx Cardiac Disorders: Yes (HX OF HTN,DISLIPIDEMIA,CAD) Hx Psychiatric Problems: No Hx Alcohol Use: No Hx Substance Use: No Hx Tobacco Use: No Physical Exam Vitals Vital Signs Date Time Temp Pulse Resp B/P Pulse Ox O2 Delivery O2 Flow Rate FiO2 02/15/17 15:41 98.4 78 18 130/80 96 02/15/17 13:41 98.4 80 18 134/85 96 Physical Exam Const: No acute distress. Head: Atraumatic. Eyes: Normal Conjunctiva. ENT: Normal External Ears, Nose and Mouth. Neck: Full range of motion. No meningismus. Resp: Clear to auscultation bilaterally. Cardio: Regular rate and rhythm. Abd: Soft, non distended, normal bowel sounds, non tender. Skin: No petechiae or rashes. Back: No midline or flank tenderness. Ext: No cyanosis, or edema. Neur: Awake and alert. No focal deficit. Mild left hemiparalysis Psych: Normal Mood and Affect. Result Diagram: 02/15/17 1420 02/15/17 1420 Results 24 hrs Laboratory Tests Test 02/15/17 14:20 02/15/17 16:18 White Blood Count 5.710^3/ul Red Blood Count 4.0510^6/ul Hemoglobin 11.8g/dl Hematocrit 36.1% Mean Corpuscular Volume 89.1fl Mean Corpuscular Hemoglobin 29.1pg Mean Corpuscular Hemoglobin Concent 32.7g/dl Red Cell Distribution Width 14.2% Platelet Count 20496^3/UL Mean Platelet Volume 10.3fl Neutrophils % 58.9% Lymphocytes % 30.3% Monocytes % 8.1% Eosinophils % 1.2% Basophils % 1.1% Nucleated Red Blood Cells % 0.0/100WBC Neutrophils # (Manual) 310^3/ul Lymphocytes # 1.710^3/ul Monocytes # 0.510^3/ul Eosinophils # 0.110^3/ul Basophils # 0.110^3/ul Nucleated Red Blood Cells # 0.010^3/ul Sodium Level 139mmol/L Potassium Level 3.7mmol/L Chloride Level 105mmol/L Carbon Dioxide Level 25mmol/L Anion Gap 13 Blood Urea Nitrogen 11mg/dl Creatinine 0.61mg/dl Glucose Level 100mg/dl Calcium Level 9.1mg/dl Total Bilirubin 0.1mg/dl Direct Bilirubin 0.00mg/dl Indirect Bilirubin 0.1mg/dl Aspartate Amino Transf (AST/SGOT) 19IU/L Alanine Aminotransferase (ALT/SGPT) 32IU/L Alkaline Phosphatase 124IU/L Total Protein 6.7g/dl Albumin 3.4g/dl Globulin 3.30g/dl Albumin/Globulin Ratio 1.03 Lipase 26U/L Bedside Urine pH (LAB) 5.0 Bedside Urine Protein (LAB) Trace Bedside Urine Glucose (UA) Negative Bedside Urine Ketones (LAB) Negative Bedside Urine Blood Trace-intact Bedside Urine Nitrite (LAB) Positive Bedside Urine Leukocyte Esterase (L Trace Current Medications Medications (Trade) Dose Ordered Sig/Portillo Route PRN Reason Start Time Stop Time Status Last Admin Dose Admin Ceftriaxone Sodium (Rocephin) 50 ml @ 100 mls/hr ONCE ONCE IVPB 02/15/17 17:00 02/15/17 17:29 Procedures/MDM [place] [address] Radiology Main Line: [phone] DIAGNOSTIC IMAGING REPORT Patient: MARIANELA MURILLO : 1935 Age: 82 Sex: F MR #: [id number] DOS: 02/15/17 1354 Ordering MD: SULEIMAN MEIER MD Location: E/R Room/Bed: PROCEDURE: XR Chest 1 view. CLINICAL INDICATION: Abnormal breath sounds, abdominal pain. TECHNIQUE: AP views of the chest were obtained. COMPARISON: None. FINDINGS: The heart is large. Calcified atherosclerosis is noted in the aorta. The lungs are hypoinflated. Atelectasis is identified at the lung bases. No consolidations are identified. No pneumothorax is seen. Osseous structures are intact. IMPRESSION: Cardiomegaly with calcified atherosclerosis in the aorta. Hypoinflated lungs with atelectasis at the lung bases. RPTAT: AA .Kemal Kasper MD, MD Date Time Electronically viewed and signed by .Kemal Kasper MD, on 02/15/2017 15:13 .P/ CC: SULEIMAN MEIER MD [facility] [address] [place] [address] Radiology Main Line: [phone] DIAGNOSTIC IMAGING REPORT Patient: MARIANELA MURILLO : 1935 Age: 82 Sex: F [id number] DOS: 02/15/17 1407 Ordering MD: SULEIMAN MEIER MD Location: E/R Room/Bed: PROCEDURE: CT brain without contrast CLINICAL INDICATION: Syncope, history of stroke TECHNIQUE: CT of the brain without contrast performed on a multidetector CT scanner, with multiplanar reformats. One or more of the following dose reduction techniques were used: Automated exposure control, adjustment in mA and / or kV according to patient size, use of iterative reconstructive technique. CTDIvol = 43 mGy; DLP = 872 mGy-cm. COMPARISON: None available FINDINGS: There is a chronic infarct involving the right frontal, parietal and insular regions with adjacent gliosis. No acute intracranial hemorrhage is identified. No extra-axial fluid collection is seen. No significant mass effect or midline shift is identified. The ventricles and sulci are mild to moderate enlarged compatible with volume loss. There are mild areas of hypodensity in the periventricular - deep white matter which are nonspecific but suggestive of chronic small vessel ischemic changes. Cordero-white differentiation is otherwise preserved. Atherosclerotic calcifications of the intracranial internal carotid arteries are noted. Calvarium and skull base are intact. Mastoid air cells and imaged paranasal sinuses grossly clear. IMPRESSION: 1. No acute intracranial pathology identified. 2. Chronic right frontoparietal - insular infarct. 3. Mild to moderate volume loss, with mild chronic small vessel ischemic changes. RPTAT: VV .Jorge Logan MD, MD Date Time Electronically viewed and signed by .Jorge Logan MD, MD on 02/15/2017 15:47 .O/ CC: SULEIMAN MEIER MD MEDICAL MAKING DECISION: The patient is a 82-year-old female, presenting with acute syncope of unclear etiology, acute cystitis. She was treated with Rocephin 1 g IV The differential diagnoses considered include but are not limited to bradyarrhythmia, tachyarrhythmias, aortic outflow obstruction, neurogenic including subarachnoid hemorrhage, orthostatic hypotension and all of its causes , hypoglycemia, dysautonomia, medications, UTI, pyelonephritis. Departure Diagnosis: Primary Impression: Syncope Additional Impressions: UTI (urinary tract infection) Anemia Condition: Stable Comments I discussed the findings with the patient. I discussed the patient with her physician at 3:55 PM who was made aware of the lab, the treatment, the patient condition. The patient is admitted to telemetry under SULEIMAN Kelley MD Feb 15, 2017 13:38
[2017-02-15 14:36] LABS: BASOPHIL # 0.1 10^3/ul (0.0-0.1); BASOPHILS % 1.1 % (0.0-2.0); EOSINOPHILS # 0.1 10^3/ul (0.0-0.5); EOSINOPHILS % 1.2 % (0.0-7.0); HEMATOCRIT 36.1 % (37.0-47.0); HEMOGLOBIN 11.8 g/dl (12.0-16.0); LYMPHOCYTES # 1.7 10^3/ul (0.8-2.9); LYMPHOCYTES % 30.3 % (15.0-51.0); MEAN CORPUSCULAR HEMOGLOBIN 29.1 pg (29.0-33.0); MEAN CORPUSCULAR HGB CONC 32.7 g/dl (32.0-37.0); MEAN CORPUSCULAR VOLUME 89.1 fl (82.0-101.0); MEAN PLATELET VOLUME 10.3 fl (7.4-10.4); MONOCYTE # 0.5 10^3/ul (0.3-0.9); MONOCYTES % 8.1 % (0.0-11.0); NEUTROPHILS % 58.9 % (39.0-77.0); PLATELET COUNT 342 10^3/UL (140-415); RED BLOOD COUNT 4.05 10^6/ul (4.20-5.40); RED CELL DISTRIBUTION WIDTH 14.2 % (11.5-14.5); WHITE BLOOD COUNT 5.7 10^3/ul (4.8-10.8)
[2017-02-15 14:58] LABS: ALBUMIN 3.4 g/dl (3.3-4.9); ALBUMIN/GLOBULIN RATIO 1.03; BILIRUBIN,INDIRECT 0.1 mg/dl (0-1.1); BILIRUBIN,TOTAL 0.1 mg/dl (0.2-1.3); CALCIUM 9.1 mg/dl (8.4-10.2); CREATININE 0.61 mg/dl (0.44-1.00); POTASSIUM 3.7 mmol/L (3.5-5.1); TOTAL PROTEIN 6.7 g/dl (6.1-8.1)
--- NOTE | 2017-02-15 15:13 | RADRPT ---
PROCEDURE: XR Chest 1 view. CLINICAL INDICATION: Abnormal breath sounds, abdominal pain. TECHNIQUE: AP views of the chest were obtained. COMPARISON: None. FINDINGS: The heart is large. Calcified atherosclerosis is noted in the aorta. The lungs are hypoinflated. A telectasis is identified at the lung bases. No consolidations are identified. No pneumothorax is se en. Osseous structures are intact. IMPRESSION: Cardiomegaly with calcified atherosclerosis in the aorta. Hypoinflated lungs with atelectasis at the lung bases. RPTAT: AA .Kemal Kasper MD, MD Date Time Electronically viewed and signed by .Kemal Kasper MD, on 02/15/2017 15:13 .P/
--- NOTE | 2017-02-15 15:48 | RADRPT ---
PROCEDURE: CT brain without contrast CLINICAL INDICATION: Syncope, history of stroke TECHNIQUE: CT of the brain without contrast performed on a multidetector CT scanner, with multiplan ar reformats. One or more of the following dose reduction techniques were used: Automated exposure control, adjustment in mA and / or kV according to patient size, use of iterative reconstructive jennifer hnique. CTDIvol = 43 mGy; DLP = 872 mGy-cm. COMPARISON: None available FINDINGS: There is a chronic infarct involving the right frontal, parietal and insular regions with adjacent g liosis. No acute intracranial hemorrhage is identified. No extra-axial fluid collection is seen. No significant mass effect or midline shift is identified. The ventricles and sulci are mild to moderate enlarged compatible with volume loss. There are mild areas of hypodensity in the periventricular - deep white matter which are nonspecific but suggestive of chronic small vessel ischemic changes. Cordero-white differentiation is otherwise p reserved. Atherosclerotic calcifications of the intracranial internal carotid arteries are noted. Calvarium and skull base are intact. Mastoid air cells and imaged paranasal sinuses grossly clear. IMPRESSION: 1. No acute intracranial pathology identified. 2. Chronic right frontoparietal - insular infarct. 3. Mild to moderate volume loss, with mild chronic small vessel ischemic changes. RPTAT: VV .Jorge Logan MD, MD Date Time Electronically viewed and signed by .Jorge Logan MD, on 02/15/2017 15:47 .O/
[2017-02-15 16:13] LABS: URINE BLOOD (Dip) POC Trace-intact (NEGATIVE)
[2017-02-15] MEDS ORDERED: METO25TA7 PO (16:17)
[2017-02-15] MEDS ORDERED: MYL80 PO (16:18)
[2017-02-15] MEDS ORDERED: RIVA20TA PO (16:19)
[2017-02-15] MEDS ORDERED: ESOM40CA PO (16:21)
[2017-02-15] MEDS ORDERED: LIPA1CAP PO (16:21)
[2017-02-15] MEDS ORDERED: DONE23TA3 PO (16:22)
[2017-02-15] MEDS ORDERED: MECL-77 PO (16:22)
[2017-02-15] MEDS ORDERED: LACT10SO36 PO (16:23)
[2017-02-15] MEDS ORDERED: CEFTRIAXONE 1 GM/50 ML (PMX) 50 ML IVPB ONE (17:00)
--- NOTE | 2017-02-15 18:22 | RADRPT ---
PROCEDURE: US carotid arteries. CLINICAL INDICATION: Dizziness. TECHNIQUE: Multiple sonographic images of the carotid arteries and vertebral arteries were obtaine d utilizing tapia scale, duplex, and color-flow imaging. The images were reviewed on a PACS workstati on. COMPARISON: No prior studies are available for comparison. FINDINGS: Evaluation of the right carotid bifurcation region reveals mild atherosclerotic disease. Evaluation of the left carotid bifurcation region reveals mild atherosclerotic disease. There is antegrade flow within the vertebral arteries bilaterally. RIGHT CAROTID MEASUREMENTS: Common Carotid Ijrldn65 (cm/sec) Internal Carotid Artery 56 (cm/sec) External Carotid Artery 77 (cm/sec) Vertebral Artery 72 (cm/sec) Internal Carotid/Common Carotid0.6 LEFT CAROTID MEASUREMENTS: Common Carotid Ekpcen48 (cm/sec) Internal Carotid Artery 63 (cm/sec) External Carotid Artery 53 (cm/sec) Vertebral Artery 67 (cm/sec) Internal Carotid/Common Carotid0.7 Validated velocity measurements with angiographic measurements. Velocity criteria are extrapolated f rom diameter data as defined by the Society of Radiologists in Ultrasound Consensus Conference. Radi ology 2003; 229;340-346. This study does indirectly reference the measurement of the distal ICA juan carlos meter as the denominator for stenosis measurement. IMPRESSION: 1. Less than 50% stenosis bilaterally in the internal carotid arteries. 2. Normal antegrade flow in the vertebral arteries bilaterally. RPTAT: QQ SRU Consensus Conference Criteria for the Diagnosis of Carotid Artery Stenosis* Degree of Stenosis, % ICA PSV, cm/sec Plaque Estimate, % ICA/CCA PSV Ratio Normal <125 None <2.0 <50 <125 <50 <2.0 50 69 125-230 >50 2.0-4.0 >70 but less than near occlusion >230 >50 <4.0 Near occlusion High, low, or undetectable Visible Variable Total occlusion Undetectable Visible, no detectable lumen Not applicable *Cartoid artery stenosis: tapia-scale and Doppler US diagnosis. Society of Radiologists in Ultrasound Consensus Conference. Radiology 2003; 229: 340-346 .Rodri Don MD, Date Time Electronically viewed and signed by .Rodri Don MD, on 02/15/2017 18:21 .R/
--- NOTE | 2017-02-15 18:24 | CONS ---
DATE OF ADMISSION: 02/15/2017 DATE OF CONSULTATION: REASON FOR CONSULTATION: Syncope, rule out cardiac etiology. REQUESTING PHYSICIAN: Dr. Huntley. HISTORY OF PRESENT ILLNESS: Mr. Woodward is a very pleasant 82-year- old female with a history of prior CVA, dyslipidemia, hypertension, coronary artery disease, possible cardiac arrhythmia on Xarelto, left hemiparesis, who initially presented with generalized weakness x3 days, and then an episode of syncope. Per patient, she was lying in bed, and was told that she had passed out. The patient states that she felt generalized weakness before this, but no chest pain or shortness of breath. Upon arrival in the Emergency Department, temperature 98.4, blood pressure 134/85, pulse 80, respirations 18, O2 saturation 96 percent. Patient's labs white count 5.7, hemoglobin 0.8, platelet count 342. Sodium 139, potassium 3.7, creatinine 0.6, BUN 11, AST 19, ALT 32, alkaline phosphotase 124. UA borderline positive. The patient underwent a chest x-ray revealing hypoinflated lungs, atelectasis at the lung bases. She had a head CT that revealed no acute intracranial pathology, chronic right frontoparietal insular infarct, qaxh-ms-rwcltyer volume loss. The patient does not have an electrocardiogram in the chart for my review at this time. Patient at this time awaits admit to the floor for further evaluation and treatment. The patient denies chest pain and shortness of breath. PAST MEDICAL HISTORY: As above in history of present illness. MEDICATION: Prior to admit: 1. Aricept daily. 2. Xarelto 10 mg daily. 3. Atorvastatin 80 mg q.h.s. 4. Lisinopril 5 mg daily. 5. Toprol-XL 12.5 mg p.o. b.i.d. 6. Temazepam p.r.n.. 7. Lactulose p.r.n. 8. Colace p.r.n. 9. Nexium 40 mg daily. 10. Lipase. 11. Protease. 12. Amylase with meals. 13. Meclizine p.r.n. 14. MiraLAX p.r.n. 15. Mylicon p.r.n. ALLERGIES: NO KNOWN DRUG ALLERGIES. SOCIAL HISTORY: No tobacco, EtOH, no illicit drug use. FAMILY HISTORY: No history of sudden cardiac or early CAD. REVIEW OF SYSTEMS: As above in history of present illness. CONSTITUTIONAL: No fevers or chills. RESPIRATORY: No current shortness of breath. CARDIOVASCULAR: An episode of syncope. No current chest pain. GASTROINTESTINAL: No vomiting. GENITOURINARY: No hematuria. MUSCULOSKELETAL: Skeletal, no significant myalgias or arthralgias. ENDOCRINE: No documented diagnosis of thyroid disease. PHYSICAL EXAMINATION: VITAL SIGNS: Afebrile. Blood pressure most recently 130/80, pulse 78, respiratory 98, respirations 18, O2 saturation 98 percent. GENERAL: The patient is alert, awake, in no acute distress. NECK: JVP approximately 8-9 cm of water. LUNGS: Fair air movement throughout. HEART: Regular rate and rhythm. Normal S1, S2, 1/6 systolic murmur, nondisplaced PMI. ABDOMEN: Positive bowel sounds. Soft. EXTREMITIES: No edema. 1+ pulses bilaterally posterior tibia. LABORATORY: As above in history of present illness. No further labs reviewed. IMAGING STUDIES: Imaging studies above in history of present illness. No further imaging studies were reviewed at this time. IMPRESSION: 1. Syncope. Assess with cardiology, rule out cardiac arrhythmia. Rule out acute coronary syndrome. 2. Hypertension. 3. Dyslipidemia. 4. History of cerebrovascular accident. 5. Dementia. 6. Possible urinary tract infection. 7. Possible cardiac arrhythmias by medications. RECOMMENDATIONS: 1. At this time, would admit patient to telemetry monitoring to follow rhythm and rate control closely and rule out any possible rhythm causes to the patient's single episode. 2. Would follow blood pressures closely with possible need for low-dose beta ted. 3. We resumed the patient's baseline Xarelto at this time for possible ventral thromboembolic complications. It is for atrial fibrillation. 4. Complete workup for infarction show patient's symptoms are not due to any acute coronary syndrome or acute myocardial infarction. Check troponin q.6h x3. 5. Check a fasting lipid panel for general stratification and initiate lipid medications necessary. 6. Continue patient's antibiotics and follow up all culture data, including urine culture, and we checked orthostatics that showed possibly short orthostasis . 7. Check a 2D echo to rule out any decreased EF for significant valvular wall motion abnormalities that may be associated with the syncopal episode. Thank you for allowing me take part in the care of this patient with you. I will continue to follow very closely with you with recommendations to be made and to her inpatient hospital course. Dictated By: Jersey Guido /chaut/ /Document#: [id number] CC: Kristin Huntley MD;*End*
[2017-02-15] MEDS ORDERED: ACETAMINOPHEN 325 MG TAB PO PRN (20:30)
[2017-02-15] MEDS ORDERED: MECLIZINE 25 MG TAB PO PRN (20:30)
[2017-02-15] MEDS ORDERED: NACL 0.9% 3 ML SYG IV SCH (20:30)
[2017-02-15] MEDS ORDERED: ONDANSETRON 4 MG INJ IV PRN (20:30)
[2017-02-15] MEDS: DOCUSATE SODIUM 100 MG CAP PO SCH (21:00)
[2017-02-15] MEDS: LACTULOSE 30ML CUP PO SCH (21:00)
[2017-02-15] MEDS: ATORVASTATIN 80 MG TAB PO SCH (22:56)
[2017-02-15] MEDS: ZOLPIDEM 5 MG TAB PO PRN (22:57)
[2017-02-15] MEDS: ESCITALOPRAM 10 MG TAB PO SCH (22:57)
[2017-02-15] MEDS: METOPROLOL (XL) 25 MG TAB PO SCH (22:58)
--- NOTE | 2017-02-15 23:22 | CONS ---
Date/Time of Note Date/Time of Note DATE: 02/15/17 TIME: 23:21 Assessment/Plan Assessment/Plan Chief Complaint/Hosp Course IMPRESSION: ANEMIA MONITOR BLOOD COUNT CLOSELY PROCEED WITH W-UP Syncope. Assess with cardiology, rule out cardiac arrhythmia. Rule out acute coronary syndrome. admit patient to telemetry CARD CONSULT follow blood pressures closely with possible need for low- dose beta ted per cardiology resumed Xarelto at this time for possible ventral thromboembolic complications. It is for atrial fibrillation. workup for infarction- Check troponin q.6h x3. fasting lipid panel for general stratification and initiate lipid medications necessary. 2D echo to rule out any decreased EF for significant valvular wall motion abnormalities that may be associated with the syncopal episode. Hypertension. Dyslipidemia. History of cerebrovascular accident. Dementia. Possible urinary tract infection. Possible cardiac arrhythmias by medications. Problems: Consultation Date/Type/Reason Admit Date/Time Feb 15, 2017 at 15:58 Date of Consultation: Feb 15, 2017 Type of Consultation: hemeonc Reason for Consultation anemia Referring Provider: FORTUNATO ALBERTO of Present Illness Mr. Woodward is a very pleasant 82-year- old female with a history of prior CVA, dyslipidemia, hypertension, coronary artery disease, possible cardiac arrhythmia on Xarelto, left hemiparesis, who initially presented with generalized weakness x3 days, and then an episode of syncope. Per patient, she was lying in bed, and was told that she had passed out. The patient states that she felt generalized weakness before this, but no chest pain or shortness of breath. Upon arrival in the Emergency Department, temperature 98.4, blood pressure 134/85, pulse 80, respirations 18, O2 saturation 96 percent. Patient's labs white count 5.7, hemoglobin 0.8, platelet count 342. Sodium 139, potassium 3.7, creatinine 0.6, BUN 11, AST 19, ALT 32, alkaline phosphotase 124. UA borderline positive. The patient underwent a chest x-ray revealing hypoinflated lungs, atelectasis at the lung bases. She had a head CT that revealed no acute intracranial pathology, chronic right frontoparietal insular infarct, [id number] volume loss. The patient does not have an electrocardiogram in the chart for my review at this time. Patient at this time awaits admit to the floor for further evaluation and treatment. The patient denies chest pain and shortness of breath. I WAS AKED TO PROVIDE [facility] CONSULT RE ANEMIA PAST MEDICAL HISTORY: As above in history of present illness. MEDICATION: Prior to admit: 1. Aricept daily. 2. Xarelto 10 mg daily. 3. Atorvastatin 80 mg q.h.s. 4. Lisinopril 5 mg daily. 5. Toprol-XL 12.5 mg p.o. b.i.d. 6. Temazepam p.r.n.. 7. Lactulose p.r.n. 8. Colace p.r.n. 9. Nexium 40 mg daily. 10. Lipase. 11. Protease. 12. Amylase with meals. 13. Meclizine p.r.n. 14. MiraLAX p.r.n. 15. Mylicon p.r.n. ALLERGIES: NO KNOWN DRUG ALLERGIES. SOCIAL HISTORY: No tobacco, EtOH, no illicit drug use. FAMILY HISTORY: No history of sudden cardiac or early CAD. REVIEW OF SYSTEMS: As above in history of present illness. CONSTITUTIONAL: No fevers or chills. RESPIRATORY: No current shortness of breath. CARDIOVASCULAR: An episode of syncope. No current chest pain. GASTROINTESTINAL: No vomiting. GENITOURINARY: No hematuria. MUSCULOSKELETAL: Skeletal, no significant myalgias or arthralgias. ENDOCRINE: No documented diagnosis of thyroid disease. LABORATORY: As above in history of present illness. No further labs reviewed. IMAGING STUDIES: Imaging studies above in history of present illness. No further imaging studies were reviewed at this time. Past Surgical History Past Surgical Hx: no surgical history Social History Smoking Status: Never smoker Exam/Review of Systems Vital Signs Vitals Vital Signs Date Time Temp Pulse Resp B/P Pulse Ox O2 Delivery O2 Flow Rate FiO2 02/15/17 22:23 70 02/15/17 21:20 97.6 18 136/76 96 Room Air Exam PHYSICAL EXAMINATION: VITAL SIGNS: PER EMR GENERAL: The patient is alert, awake, in no acute distress. NECK: JVP approximately 8-9 cm of water. LUNGS: Fair air movement throughout. HEART: Regular rate and rhythm. Normal S1, S2, 1/6 systolic murmur, nondisplaced PMI. ABDOMEN: Positive bowel sounds. Soft. EXTREMITIES: No edema. 1+ pulses bilaterally posterior tibia. Results Result Diagram: 02/15/17 1420 02/15/17 1420 Results 24 hrs Laboratory Tests Test 02/15/17 14:20 02/15/17 16:18 White Blood Count 5.7 # Red Blood Count 4.05 L Hemoglobin 11.8 L Hematocrit 36.1 L Mean Corpuscular Volume 89.1 Mean Corpuscular Hemoglobin 29.1 Mean Corpuscular Hemoglobin Concent 32.7 Red Cell Distribution Width 14.2 Platelet Count 342 Mean Platelet Volume 10.3 Neutrophils % 58.9 Lymphocytes % 30.3 Monocytes % 8.1 Eosinophils % 1.2 Basophils % 1.1 Nucleated Red Blood Cells % 0.0 Neutrophils # (Manual) 3 Lymphocytes # 1.7 Monocytes # 0.5 Eosinophils # 0.1 Basophils # 0.1 Nucleated Red Blood Cells # 0.0 Sodium Level 139 Potassium Level 3.7 Chloride Level 105 Carbon Dioxide Level 25 Anion Gap 13 Blood Urea Nitrogen 11 Creatinine 0.61 Glucose Level 100 Calcium Level 9.1 Total Bilirubin 0.1 L Direct Bilirubin 0.00 Indirect Bilirubin 0.1 Aspartate Amino Transf (AST/SGOT) 19 Alanine Aminotransferase (ALT/SGPT) 32 Alkaline Phosphatase 124 H Troponin I < 0.012 Total Protein 6.7 Albumin 3.4 Globulin 3.30 H Albumin/Globulin Ratio 1.03 Lipase 26 Thyroid Stimulating Hormone (TSH) 1.480 Bedside Urine pH (LAB) 5.0 Bedside Urine Protein (LAB) Trace H Bedside Urine Glucose (UA) Negative Bedside Urine Ketones (LAB) Negative Bedside Urine Blood Trace-intact H Bedside Urine Nitrite (LAB) Positive H Bedside Urine Leukocyte Esterase (L Trace H Medications Medications Current Medications Ondansetron HCl (Zofran Inj) 4 mg Q6H PRN IV NAUSEA AND/OR VOMITING; Start at 20:30 Acetaminophen 650 mg 650 mg Q6H PRN PO PAIN LEVEL 1-3 OR FEVER; Start 02/15/17 at 20:30 Ceftriaxone Sodium (Rocephin) 50 ml @ 100 mls/hr Q24H IVPB ; Start 02/16/17 at 17:00 Atorvastatin Calcium (Lipitor) 80 mg QHS PO Last administered on 02/15/17t 22: 56; Admin Dose 80 MG; Start 02/15/17 at 21:00 Docusate Sodium (Colace) 100 mg BID PO ; Start 02/15/17 at 21:00 Escitalopram Oxalate (Lexapro) 10 mg QHS PO Last administered on 02/15/17 22: 57; Admin Dose 10 MG; Start 02/15/17 at 21:00 Lisinopril (Zestril) 5 mg DAILY PO ; Start 02/16/17 at 09:00 Meclizine HCl (Antivert) 25 mg DAILY PRN PO DIZZINESS; Start 02/15/17 at 20:30 Metoprolol Succinate (Toprol Xl) 12.5 mg BID PO Last administered on 02/15/17 22:58; Admin Dose 12.5 MG; Start 02/15/17 at 21:00 Polyethylene Glycol (Miralax) 17 gm DAILY PO ; Start 02/16/17 at 09:00 Simethicone (Mylicon) 160 mg TID PRN PO STOMACH UPSET; Start 02/15/17 at 20:30 Miscellaneous Information 23 mg DAILY PO ; Start 02/16/17 at 09:00; Status UNV Pantoprazole (Protonix Tab) 40 mg DAILY@06 PO ; Start 02/16/17 at 06:00 Lactulose (Enulose) 20 gm TID PO ; Start 02/15/17 at 21:00 Zolpidem Tartrate (Ambien) 5 mg HS PRN PO INSOMNIA Last administered on 22:57; Admin Dose 5 MG; Start 02/15/17 at 21:00 TERRA RANGEL MD Feb 15, 2017 23:22
[2017-02-16] VITALS (12 sets, daily range): BP systolic 112–139; BP diastolic 58–93; PULSE 60–80; RESP 15–18
[2017-02-16] MEDS: PANTOPRAZOLE (EC) 40 MG TAB PO SCH (06:22)
[2017-02-16 06:38] LABS: BASOPHIL # 0.1 10^3/ul (0.0-0.1); BASOPHILS % 0.9 % (0.0-2.0); EOSINOPHILS # 0.1 10^3/ul (0.0-0.5); EOSINOPHILS % 2.4 % (0.0-7.0); HEMATOCRIT 33.9 % (37.0-47.0); HEMOGLOBIN 11.1 g/dl (12.0-16.0); LYMPHOCYTES # 2.2 10^3/ul (0.8-2.9); MEAN CORPUSCULAR HGB CONC 32.7 g/dl (32.0-37.0); MEAN CORPUSCULAR VOLUME 88.5 fl (82.0-101.0); MEAN PLATELET VOLUME 10.2 fl (7.4-10.4); MONOCYTE # 0.5 10^3/ul (0.3-0.9); MONOCYTES % 8.6 % (0.0-11.0); NEUTROPHILS % 46.7 % (39.0-77.0); PLATELET COUNT 349 10^3/UL (140-415); RED BLOOD COUNT 3.83 10^6/ul (4.20-5.40); RED CELL DISTRIBUTION WIDTH 14.3 % (11.5-14.5); WHITE BLOOD COUNT 5.4 10^3/ul (4.8-10.8)
[2017-02-16 07:00] LABS: RETICULOCYTE COUNT % 0.9 % (0.5-1.5)
[2017-02-16 07:10] LABS: URIC ACID 3.6 mg/dl (3.1-7.9)
[2017-02-16 07:11] LABS: ALBUMIN 3.1 g/dl (3.3-4.9); ALBUMIN/GLOBULIN RATIO 0.96; BILIRUBIN,INDIRECT 0.2 mg/dl (0-1.1); BILIRUBIN,TOTAL 0.2 mg/dl (0.2-1.3); CALCIUM 9.3 mg/dl (8.4-10.2); CREATININE 0.59 mg/dl (0.44-1.00); PHOSPHORUS 3.4 mg/dl (2.5-4.9); POTASSIUM 3.7 mmol/L (3.5-5.1); TOTAL PROTEIN 6.3 g/dl (6.1-8.1)
[2017-02-16] MEDS ORDERED: LIPASE PROTEASE AMYLASE PO SCH (07:35)
[2017-02-16 07:38] LABS: IRON 37 ug/dl (35-150)
[2017-02-16 07:47] LABS: TOTAL IRON BINDING CAPACITY 213 ug/dl (241-421)
[2017-02-16 08:12] LABS: CHOL/HDL RATIO 3.8 RATIO
[2017-02-16] MEDS: METOPROLOL (XL) 25 MG TAB PO SCH ×2 (08:53→21:58)
[2017-02-16] MEDS: LISINOPRIL 5 MG TAB PO SCH (08:53)
[2017-02-16] MEDS: LACTULOSE 30ML CUP PO SCH ×3 (08:53→21:58)
[2017-02-16] MEDS: DOCUSATE SODIUM 100 MG CAP PO SCH ×2 (08:53→21:58)
[2017-02-16] MEDS: POLYETHYLENE GLYCOL 17 GM PACKET PO SCH (08:58)
[2017-02-16] MEDS ORDERED: NON-FORMULARY/PATIENT OWN MED (Donepezil* 23 MG) PO SCH (09:00)
[2017-02-16] MEDS ORDERED: ENOXAPARIN 40 MG/0.4 ML SYG SC SCH (09:00)
[2017-02-16 09:44] LABS: T3 UPTAKE 36.9 % (23.5-40.5)
--- NOTE | 2017-02-16 11:15 | CONS ---
Date/Time of Note Date/Time of Note DATE: 02/16/17 TIME: 11:12 Assessment/Plan Assessment/Plan Additional Assessment/Plan 1. Syncope. Assess with cardiology, rule out cardiac arrhythmia. Rule out acute coronary syndrome - rate controlled ow, no rocío arrhythmia reported. 2. Hypertension- well Rx, con't med rx 3. Dyslipidemia. 4. History of cerebrovascular accident- con't supportive Rx. 5. Dementia- on meds. 6. Possible urinary tract infection- anti-Bx preprimary team 7. Possible cardiac arrhythmias by medications- rate controlled now. Consultation Date/Type/Reason Admit Date/Time Feb 15, 2017 at 15:58 Initial Consult Date 02/15/17 Type of Consultation: [facility] Referring Provider: FORTUNATO ALBERTO DO 24 HR Interval Summary Free Text/Dictation Rule out acute coronary syndrome - rate controlled ow, no rocío arrhythmia reported. ROS: No fever, no chills, no nausea, no vomiting, no diarrhea/constipation No recent weight changes No chest pain, no PND, no orthopnea No dizziness, blurred vision No thirst, no heat or cold intolerance Exam/Review of Systems Vital Signs Vitals Vital Signs Date Time Temp Pulse Resp B/P Pulse Ox O2 Delivery O2 Flow Rate FiO2 02/16/17 08:12 78 02/16/17 07:44 98.5 18 120/66 94 02/15/17 21:20 Room Air Intake and Output 02/15/17 02/15/17 02/16/17 15:00 23:00 07:00 Intake Total 300 ml Balance 300 ml Exam General: WN/WD/NAD, AOx 1-2 confused HEENT: Unicetric/atraumatic/EOMI (follows some commands) NECK: JVD elevated, no thyromegaly Lymph: no lymphadenopathy HEART: irregular with no S3, II/ systolic murmur at apex LUNGS: Coarse sounds ABD: soft, NT, ND, +BS : Intact Neuro: non focal SKIN: chronic changes EXT: trace edema Results Result Diagram: 02/16/17 0502/16/17 0520 Results 24 hrs Laboratory Tests Test 02/15/17 14:20 02/15/17 16:18 02/16/17 00:38 02/16/17 05:20 White Blood Count 5.7 # 5.4 Red Blood Count 4.05 L 3.83 L Hemoglobin 11.8 L 11.1 L Hematocrit 36.1 L 33.9 L Mean Corpuscular Volume 89.1 88.5 Mean Corpuscular Hemoglobin 29.1 29.0 Mean Corpuscular Hemoglobin Concent 32.7 32.7 Red Cell Distribution Width 14.2 14.3 Platelet Count 342 349 Mean Platelet Volume 10.3 10.2 Neutrophils % 58.9 46.7 Lymphocytes % 30.3 41.0 Monocytes % 8.1 8.6 Eosinophils % 1.2 2.4 Basophils % 1.1 0.9 Nucleated Red Blood Cells % 0.0 0.0 Neutrophils # (Manual) 3 3 Lymphocytes # 1.7 2.2 Monocytes # 0.5 0.5 Eosinophils # 0.1 0.1 Basophils # 0.1 0.1 Nucleated Red Blood Cells # 0.0 0.0 Sodium Level 139 138 Potassium Level 3.7 3.7 Chloride Level 105 104 Carbon Dioxide Level 25 27 Anion Gap 13 11 Blood Urea Nitrogen 11 10 Creatinine 0.61 0.59 Glucose Level 100 88 Calcium Level 9.1 9.3 Total Bilirubin 0.1 L 0.2 Direct Bilirubin 0.00 0.00 Indirect Bilirubin 0.1 0.2 Aspartate Amino Transf (AST/SGOT) 19 18 Alanine Aminotransferase (ALT/SGPT) 32 27 Alkaline Phosphatase 124 H 119 Troponin I < 0.012 < 0.012 Total Protein 6.7 6.3 Albumin 3.4 3.1 L Globulin 3.30 H 3.20 Albumin/Globulin Ratio 1.03 0.96 Lipase 26 Thyroid Stimulating Hormone (TSH) 1.480 Bedside Urine pH (LAB) 5.0 Bedside Urine Protein (LAB) Trace H Bedside Urine Glucose (UA) Negative Bedside Urine Ketones (LAB) Negative Bedside Urine Blood Trace-intact H Bedside Urine Nitrite (LAB) Positive H Bedside Urine Leukocyte Esterase (L Trace H Erythrocyte Sedimentation Rate 21 Absolute Reticulocyte Count 0.033 Percent Reticulocyte Count 0.9 Uric Acid 3.6 Phosphorus Level 3.4 Magnesium Level 2.0 Iron Level 37 Total Iron Binding Capacity 213 L Percent Iron Saturation 17 L Ferritin 133.0 Lactate Dehydrogenase 391 Carcinoembryonic Antigen Pending Vitamin B12 Level 278 Folate 9.0 Free Thyroxine Index 3.51 Thyroxine (T4) 9.5 Triiodothyronine (T3) Uptake 36.9 Test 02/16/17 07:32 Troponin I < 0.012 Triglycerides Level 105 Cholesterol Level 137 LDL Cholesterol, Calculated 80 HDL Cholesterol 36 Cholesterol/HDL Ratio 3.8 Medications Medications Current Medications Ondansetron HCl (Zofran Inj) 4 mg Q6H PRN IV NAUSEA AND/OR VOMITING; Start at 20:30 Acetaminophen 650 mg 650 mg Q6H PRN PO PAIN LEVEL 1-3 OR FEVER; Start 02/15/17 at 20:30 Ceftriaxone Sodium (Rocephin) 50 ml @ 100 mls/hr Q24H IVPB ; Start 02/16/17 at 17:00 Atorvastatin Calcium (Lipitor) 80 mg QHS PO Last administered on 02/15/17 22: 56; Admin Dose 80 MG; Start 02/15/17 at 21:00 Docusate Sodium (Colace) 100 mg BID PO Last administered on 02/16/17 08:53; Admin Dose 100 MG; Start 02/15/17 at 21:00 Escitalopram Oxalate (Lexapro) 10 mg QHS PO Last administered on 02/15/17 22: 57; Admin Dose 10 MG; Start 02/15/17 at 21:00 Lisinopril (Zestril) 5 mg DAILY PO Last administered on 02/16/17 08:53; Admin Dose 5 MG; Start 02/16/17 at 09:00 Meclizine HCl (Antivert) 25 mg DAILY PRN PO DIZZINESS; Start 02/15/17 at 20:30 Metoprolol Succinate (Toprol Xl) 12.5 mg BID PO Last administered on 02/16/17 08:53; Admin Dose 12.5 MG; Start 02/15/17 at 21:00 Polyethylene Glycol (Miralax) 17 gm DAILY PO ; Start 02/16/17 at 09:00 Simethicone (Mylicon) 160 mg TID PRN PO STOMACH UPSET; Start 02/15/17 at 20:30 Miscellaneous Information 23 mg DAILY PO ; Start 02/16/17 at 09:00; Status UNV Pantoprazole (Protonix Tab) 40 mg DAILY@06 PO Last administered on 02/16/17 06 :22; Admin Dose 40 MG; Start 02/16/17 at 06:00 Lactulose (Enulose) 20 gm TID PO Last administered on 02/16/17 08:53; Admin Dose 20 GM; Start 02/15/17 at 21:00 Zolpidem Tartrate (Ambien) 5 mg HS PRN PO INSOMNIA Last administered on t 22:57; Admin Dose 5 MG; Start 02/15/17 at 21:00 NAGI NARANJO MD Feb 16, 2017 11:14
[2017-02-16] MEDS: [UNRECOGNIZED DRUG - OTHER] XX SCH ×2 (12:00→20:00)
[2017-02-16] MEDS: LIPASE XX SCH ×2 (12:00→20:00)
[2017-02-16] MEDS: [UNRECOGNIZED DRUG - REMARK] XX SCH ×2 (12:00→20:00)
[2017-02-16] MEDS: AMYLASE XX SCH ×2 (12:00→20:00)
[2017-02-16 15:10] LABS: CARCINOEMBRYONIC ANTIGEN 2.6 ng/ml (0.0-5.0)
[2017-02-16] MEDS: CEFTRIAXONE 1 GM/50 ML (PMX) 50 ML IVPB SCH (18:10)
[2017-02-16] MEDS: RIVAROXABAN 20 MG TABLET PO SCH (18:10)
--- NOTE | 2017-02-16 20:55 | CONS ---
Date/Time of Note Date/Time of Note DATE: 02/16/17 TIME: 20:53 Assessment/Plan Assessment/Plan Chief Complaint/Hosp Course IMPRESSION: ANEMIA MONITOR BLOOD COUNT CLOSELY COMPLETE W-UP Syncope. cardiology f-up, rule out cardiac arrhythmia. Ruled out acute coronary syndrome. admit patient to telemetry CARD CONSULT follow blood pressures closely with possible need for low- dose beta ted per cardiology resumed Xarelto at this time for possible ventral thromboembolic complications. It is for atrial fibrillation. workup for infarction- Check troponin q.6h x3. fasting lipid panel for general stratification and initiate lipid medications necessary. 2D echo to rule out any decreased EF for significant valvular wall motion abnormalities that may be associated with the syncopal episode. DECONDITIONING START PT Hypertension. Dyslipidemia. History of cerebrovascular accident. Dementia. Possible urinary tract infection. Possible cardiac arrhythmias by medications. Problems: Consultation Date/Type/Reason Admit Date/Time Feb 15, 2017 at 15:58 Initial Consult Date 02/15/17 Type of Consultation: [facility] Referring Provider: FORTUNATO ALBERTO DO 24 HR Interval Summary Free Text/Dictation all noted a-up in progress no bleeding no hemolysis Exam/Review of Systems Vital Signs Vitals Vital Signs Date Time Temp Pulse Resp B/P Pulse Ox O2 Delivery O2 Flow Rate FiO2 02/16/17 16:17 80 02/16/17 15:36 98.1 18 131/81 98 02/15/17 21:20 Room Air Intake and Output 02/15/17 02/15/17 02/16/17 14:59 22:59 06:59 Intake Total 300 ml Balance 300 ml Exam GENERAL: The patient is alert, awake, in no acute distress. NECK: JVP approximately 8-9 cm of water. LUNGS: Fair air movement throughout. HEART: Regular rate and rhythm. Normal S1, S2, 1/6 systolic murmur, nondisplaced PMI. ABDOMEN: Positive bowel sounds. Soft. EXTREMITIES: No edema. 1+ pulses bilaterally posterior tibia. Results Result Diagram: 02/16/17 0520 02/16/17 0520 Results 24 hrs Laboratory Tests Test 02/16/17 00:38 02/16/17 05:20 02/16/17 07:32 Troponin I < 0.012 < 0.012 White Blood Count 5.4 Red Blood Count 3.83 L Hemoglobin 11.1 L Hematocrit 33.9 L Mean Corpuscular Volume 88.5 Mean Corpuscular Hemoglobin 29.0 Mean Corpuscular Hemoglobin Concent 32.7 Red Cell Distribution Width 14.3 Platelet Count 349 Mean Platelet Volume 10.2 Neutrophils % 46.7 Lymphocytes % 41.0 Monocytes % 8.6 Eosinophils % 2.4 Basophils % 0.9 Nucleated Red Blood Cells % 0.0 Neutrophils # (Manual) 3 Lymphocytes # 2.2 Monocytes # 0.5 Eosinophils # 0.1 Basophils # 0.1 Nucleated Red Blood Cells # 0.0 Erythrocyte Sedimentation Rate 21 Absolute Reticulocyte Count 0.033 Percent Reticulocyte Count 0.9 Sodium Level 138 Potassium Level 3.7 Chloride Level 104 Carbon Dioxide Level 27 Anion Gap 11 Blood Urea Nitrogen 10 Creatinine 0.59 Glucose Level 88 Uric Acid 3.6 Calcium Level 9.3 Phosphorus Level 3.4 Magnesium Level 2.0 Iron Level 37 Total Iron Binding Capacity 213 L Percent Iron Saturation 17 L Ferritin 133.0 Total Bilirubin 0.2 Direct Bilirubin 0.00 Indirect Bilirubin 0.2 Aspartate Amino Transf (AST/SGOT) 18 Alanine Aminotransferase (ALT/SGPT) 27 Alkaline Phosphatase 119 Lactate Dehydrogenase 391 Total Protein 6.3 Albumin 3.1 L Globulin 3.20 Albumin/Globulin Ratio 0.96 Carcinoembryonic Antigen 2.6 Vitamin B12 Level 278 Folate 9.0 Free Thyroxine Index 3.51 Thyroxine (T4) 9.5 Triiodothyronine (T3) Uptake 36.9 Triglycerides Level 105 Cholesterol Level 137 LDL Cholesterol, Calculated 80 HDL Cholesterol 36 Cholesterol/HDL Ratio 3.8 Medications Medications Current Medications Ondansetron HCl (Zofran Inj) 4 mg Q6H PRN IV NAUSEA AND/OR VOMITING; Start at 20:30 Acetaminophen 650 mg 650 mg Q6H PRN PO PAIN LEVEL 1-3 OR FEVER; Start 02/15/17 at 20:30 Ceftriaxone Sodium (Rocephin) 50 ml @ 100 mls/hr Q24H IVPB Last administered on 02/16/17 18:10; Admin Dose 100 MLS/HR; Start 02/16/17 at 17:00 Atorvastatin Calcium (Lipitor) 80 mg QHS PO Last administered on 02/15/17 22: 56; Admin Dose 80 MG; Start 02/15/17 at 21:00 Docusate Sodium (Colace) 100 mg BID PO Last administered on 02/16/17 08:53; Admin Dose 100 MG; Start 02/15/17 at 21:00 Escitalopram Oxalate (Lexapro) 10 mg QHS PO Last administered on 02/15/17 22: 57; Admin Dose 10 MG; Start 02/15/17 at 21:00 Lisinopril (Zestril) 5 mg DAILY PO Last administered on 02/16/17 08:53; Admin Dose 5 MG; Start 02/16/17 at 09:00 Meclizine HCl (Antivert) 25 mg DAILY PRN PO DIZZINESS; Start 02/15/17 at 20:30 Metoprolol Succinate (Toprol Xl) 12.5 mg BID PO Last administered on 02/16/17 08:53; Admin Dose 12.5 MG; Start 02/15/17 at 21:00 Polyethylene Glycol (Miralax) 17 gm DAILY PO ; Start 02/16/17 at 09:00 Simethicone (Mylicon) 160 mg TID PRN PO STOMACH UPSET; Start 02/15/17 at 20:30 Miscellaneous Information 23 mg DAILY PO ; Start 02/16/17 at 09:00; Status UNV Pantoprazole (Protonix Tab) 40 mg DAILY@06 PO Last administered on 02/16/17 06 :22; Admin Dose 40 MG; Start 02/16/17 at 06:00 Lactulose (Enulose) 20 gm TID PO Last administered on 02/16/17 08:53; Admin Dose 20 GM; Start 02/15/17 at 21:00 Zolpidem Tartrate (Ambien) 5 mg HS PRN PO INSOMNIA Last administered on 22:57; Admin Dose 5 MG; Start 02/15/17 at 21:00 Miscellaneous Information (*Order Clarification Bulletin) Lipase-Protease- Amylase* (Zaida DR* 3,000) 1 ... Q8H XX ; Start 02/16/17 at 12:00 Miscellaneous Information (*Order Clarification Bulletin) DONEPEZIL 23MG : PLEASE ASK FAMILY... Q8H XX ; Start 02/16/17 at 12:00 TERRA RANGEL MD Feb 16, 2017 20:55
[2017-02-16] MEDS: ESCITALOPRAM 10 MG TAB PO SCH (21:00)
[2017-02-16] MEDS: ATORVASTATIN 80 MG TAB PO SCH (21:57)
[2017-02-16] MEDS: ZOLPIDEM 5 MG TAB PO PRN (22:29)
[2017-02-17] VITALS (15 sets, daily range): BP systolic 104–141; BP diastolic 61–77; PULSE 60–75; RESP 16–20
[2017-02-17] MEDS: AMYLASE XX SCH ×3 (03:51→20:00)
[2017-02-17] MEDS: [UNRECOGNIZED DRUG - REMARK] XX SCH ×3 (03:51→20:00)
[2017-02-17] MEDS: [UNRECOGNIZED DRUG - OTHER] XX SCH ×3 (03:51→20:00)
[2017-02-17] MEDS: LIPASE XX SCH ×3 (03:51→20:00)
[2017-02-17] MEDS: PANTOPRAZOLE (EC) 40 MG TAB PO SCH (06:03)
[2017-02-17] MEDS: LACTULOSE 30ML CUP PO SCH ×3 (08:52→21:00)
[2017-02-17] MEDS: POLYETHYLENE GLYCOL 17 GM PACKET PO SCH (08:52)
[2017-02-17] MEDS: LISINOPRIL 5 MG TAB PO SCH (08:53)
[2017-02-17] MEDS: DOCUSATE SODIUM 100 MG CAP PO SCH ×2 (08:53→20:57)
[2017-02-17] MEDS: METOPROLOL (XL) 25 MG TAB PO SCH ×2 (08:54→21:03)
--- NOTE | 2017-02-17 13:10 | CONS ---
Date/Time of Note Date/Time of Note DATE: 02/17/17 TIME: 13:10 Assessment/Plan Assessment/Plan Chief Complaint/Hosp Course IMPRESSION: ANEMIA MONITOR BLOOD COUNT CLOSELY COMPLETE W-UP Syncope. cardiology f-up, rule out cardiac arrhythmia. Ruled out acute coronary syndrome. admit patient to telemetry CARD CONSULT follow blood pressures closely with possible need for low- dose beta ted per cardiology resumed Xarelto at this time for possible ventral thromboembolic complications. It is for atrial fibrillation. workup for infarction- Check troponin q.6h x3. fasting lipid panel for general stratification and initiate lipid medications necessary. 2D echo to rule out any decreased EF for significant valvular wall motion abnormalities that may be associated with the syncopal episode. DECONDITIONING START PT Hypertension. Dyslipidemia. History of cerebrovascular accident. Dementia. Possible urinary tract infection. Possible cardiac arrhythmias by medications. Problems: Consultation Date/Type/Reason Admit Date/Time Feb 15, 2017 at 15:58 Initial Consult Date 02/15/17 [facility] Referring Provider: FORTUNATO ALBERTO DO 24 HR Interval Summary Free Text/Dictation ALL NOTED W-UP IN PROGRESS Exam/Review of Systems Vital Signs Vitals Vital Signs Date Time Temp Pulse Resp B/P Pulse Ox O2 Delivery O2 Flow Rate FiO2 02/17/17 12:06 97.8 73 18 119/72 98 02/15/17 21:20 Room Air Intake and Output 02/16/17 02/16/17 02/17/17 15:00 23:00 07:00 Intake Total 650 ml 500 ml Balance 650 ml 500 ml Exam GENERAL: The patient is alert, awake, in no acute distress. NECK: JVP approximately 8-9 cm of water. LUNGS: Fair air movement throughout. HEART: Regular rate and rhythm. Normal S1, S2, 1/6 systolic murmur, nondisplaced PMI. ABDOMEN: Positive bowel sounds. Soft. EXTREMITIES: No edema. 1+ pulses bilaterally posterior tibia. Results Result Diagram: 02/16/1751902/16/17519 Medications Medications Current Medications Ondansetron HCl (Zofran Inj) 4 mg Q6H PRN IV NAUSEA AND/OR VOMITING; Start at 20:30 Acetaminophen 650 mg 650 mg Q6H PRN PO PAIN LEVEL 1-3 OR FEVER; Start 02/15/17 at 20:30 Ceftriaxone Sodium (Rocephin) 50 ml @ 100 mls/hr Q24H IVPB Last administered on 02/16/17 18:10; Admin Dose 100 MLS/HR; Start 02/16/17 at 17:00 Atorvastatin Calcium (Lipitor) 80 mg QHS PO Last administered on 02/16/17 21: 57; Admin Dose 80 MG; Start 02/15/17 at 21:00 Docusate Sodium (Colace) 100 mg BID PO Last administered on 02/17/17 08:53; Admin Dose 100 MG; Start 02/15/17 at 21:00 Escitalopram Oxalate (Lexapro) 10 mg QHS PO Last administered on 02/16/17 21: 00; Admin Dose 10 MG; Start 02/15/17 at 21:00 Lisinopril (Zestril) 5 mg DAILY PO Last administered on 02/17/17 08:53; Admin Dose 5 MG; Start 02/16/17 at 09:00 Meclizine HCl (Antivert) 25 mg DAILY PRN PO DIZZINESS; Start 02/15/17 at 20:30 Metoprolol Succinate (Toprol Xl) 12.5 mg BID PO Last administered on 02/17/17 08:54; Admin Dose 12.5 MG; Start 02/15/17 at 21:00 Polyethylene Glycol (Miralax) 17 gm DAILY PO Last administered on 02/17/17 08: 52; Admin Dose 17 GM; Start 02/16/17 at 09:00 Simethicone (Mylicon) 160 mg TID PRN PO STOMACH UPSET; Start 02/15/17 at 20:30 Miscellaneous Information 23 mg DAILY PO ; Start 02/16/17 at 09:00; Status UNV Pantoprazole (Protonix Tab) 40 mg DAILY@06 PO Last administered on 02/17/17 06 :03; Admin Dose 40 MG; Start 02/16/17 at 06:00 Lactulose (Enulose) 20 gm TID PO Last administered on 02/17/17 08:52; Admin Dose 20 GM; Start 02/15/17 at 21:00 Zolpidem Tartrate (Ambien) 5 mg HS PRN PO INSOMNIA Last administered on 22:29; Admin Dose 5 MG; Start 02/15/17 at 21:00 Miscellaneous Information (*Order Clarification Bulletin) Lipase-Protease- Amylase* (Zaida DR* 3,000) 1 ... Q8H XX ; Start 02/16/17 at 12:00 Miscellaneous Information (*Order Clarification Bulletin) DONEPEZIL 23MG : PLEASE ASK FAMILY... Q8H XX ; Start 02/16/17 at 12:00 TERRA RANGEL MD Feb 17, 2017 13:10
--- NOTE | 2017-02-17 14:03 | CONS ---
Date/Time of Note Date/Time of Note DATE: 02/17/17 TIME: 13:54 Assessment/Plan Assessment/Plan Chief Complaint/Hosp Course IMPRESSION: 1. Syncope. Assess with cardiology, rule out cardiac arrhythmia. Rule out acute coronary syndrome.-negative trop x 3/negative orthostatics 2. Hypertension. 3. Dyslipidemia. 4. History of cerebrovascular accident. 5. Dementia. 6. Possible urinary tract infection. 7. PAF on xarelto 8. H/O cva Recc: -Tele -serial ecg's -Continue low dose BB -Continue statin -Continue xarelto -will f/u echo Problems: Consultation Date/Type/Reason Admit Date/Time Feb 15, 2017 at 15:58 Initial Consult Date 02/15/17 Type of Consultation: cardiology Reason for Consultation syncope Referring Provider: FORTUNATO ALBERTO DO Exam/Review of Systems Vital Signs Vitals Vital Signs Date Time Temp Pulse Resp B/P Pulse Ox O2 Delivery O2 Flow Rate FiO2 02/17/17 12:06 97.8 73 18 119/72 98 02/15/17 21:20 Room Air Intake and Output 02/16/17 02/16/17 02/17/17 15:00 23:00 07:00 Intake Total 650 ml 500 ml Balance 650 ml 500 ml Exam Review of Systems: CONSTITUTIONAL: No fevers, chills. PULMONARY: No sob CARDIOVASCULAR: No chest pain/palpitations GASTROINTESTINAL: No nausea/vomiting. GENITOURINARY: No hematuria/dysuria. MUSCULOSKELETAL: No myagias/arthalgias. PSYCHIATRIC: The patient denies depression. NEUROLOGIC: No weakness Constitutional: alert Psych: no complaints Head: normocephalic Neck: jvd (9 cm water), supple Respiratory: diminished breath sounds Cardiovascular: regular rate and rhythm Gastrointestinal: non-tender, soft Musculoskeletal: muscle tone (normal) Extremities: edema (none) Neurological: other (No focal deficits) Results Result Diagram: 02/16/1751902/16/17519 Medications Medications Current Medications Ondansetron HCl (Zofran Inj) 4 mg Q6H PRN IV NAUSEA AND/OR VOMITING; Start at 20:30 Acetaminophen 650 mg 650 mg Q6H PRN PO PAIN LEVEL 1-3 OR FEVER; Start 02/15/17 at 20:30 Ceftriaxone Sodium (Rocephin) 50 ml @ 100 mls/hr Q24H IVPB Last administered on 02/16/17 18:10; Admin Dose 100 MLS/HR; Start 02/16/17 at 17:00 Atorvastatin Calcium (Lipitor) 80 mg QHS PO Last administered on 02/16/17 21: 57; Admin Dose 80 MG; Start 02/15/17 at 21:00 Docusate Sodium (Colace) 100 mg BID PO Last administered on 02/17/17 08:53; Admin Dose 100 MG; Start 02/15/17 at 21:00 Escitalopram Oxalate (Lexapro) 10 mg QHS PO Last administered on 02/16/17 21: 00; Admin Dose 10 MG; Start 02/15/17 at 21:00 Lisinopril (Zestril) 5 mg DAILY PO Last administered on 02/17/17 08:53; Admin Dose 5 MG; Start 02/16/17 at 09:00 Meclizine HCl (Antivert) 25 mg DAILY PRN PO DIZZINESS; Start 02/15/17 at 20:30 Metoprolol Succinate (Toprol Xl) 12.5 mg BID PO Last administered on 02/17/17 08:54; Admin Dose 12.5 MG; Start 02/15/17 at 21:00 Polyethylene Glycol (Miralax) 17 gm DAILY PO Last administered on 02/17/17 08: 52; Admin Dose 17 GM; Start 02/16/17 at 09:00 Simethicone (Mylicon) 160 mg TID PRN PO STOMACH UPSET; Start 02/15/17 at 20:30 Miscellaneous Information 23 mg DAILY PO ; Start 02/16/17 at 09:00; Status UNV Pantoprazole (Protonix Tab) 40 mg DAILY@06 PO Last administered on 02/17/17 06 :03; Admin Dose 40 MG; Start 02/16/17 at 06:00 Lactulose (Enulose) 20 gm TID PO Last administered on 02/17/17 08:52; Admin Dose 20 GM; Start 02/15/17 at 21:00 Zolpidem Tartrate (Ambien) 5 mg HS PRN PO INSOMNIA Last administered on 22:29; Admin Dose 5 MG; Start 02/15/17 at 21:00 Miscellaneous Information (*Order Clarification Bulletin) Lipase-Protease- Amylase* (Zaida WALKER* 3,000) 1 ... Q8H XX ; Start 02/16/17 at 12:00 Miscellaneous Information (*Order Clarification Bulletin) DONEPEZIL 23MG : PLEASE ASK FAMILY... Q8H XX ; Start 02/16/17 at 12:00 DAVID TESFAYE Feb 17, 2017 14:03
--- NOTE | 2017-02-17 14:54 | RADRPT ---
Echocardiogram Report Patient Name: MARIANELA MURILLO Gender: Female Date: 1935 Study Date: 16-Feb-2017 Hospital Security Officer: [facility] Location: [id number] Ref. Physician: DAVID DONNELLY Quality: Technically Difficult Study Procedures: Transthoracic echocardiogram with complete 2D, M-Mode, and doppler examination. Indications: Syncope. 2D/M Mode Doppler Measurement Value Normal Ranges Measurement Value Normal Ranges LVIDd 2D 4.6 3.5 - 5.6 cm AV Peak Graham 1.4 m/sec LVIDs 2D 3.0 2.1 - 4.1 cm AV Peak PG 8.0 mmHg FS 2D 33.3 % LVOT Peak Graham 0.8 m/sec LVPWd 2D 1.1 0.6 - 1.1 cm LVOT Peak PG 3.0 mmHg IVSd 2D 1.1 0.6 - 1.1 cm MV E Peak Graham 0.8 m/sec IVS/LVPW 2D 1.0 TR Peak Graham 3.1 m/sec AoR Diam 2D 2.8 2.0 - 3.7 cm TR Peak PG 37.0 mmHg LA/Ao 2D 2 0 - 1 RVSP 41.0 mmHg EDV 2D 95.4 cm3 ESV 2D 28.4 cm3 LA Dimen 2D 5.1 2.3 - 4.0 cm Findings Left Ventricle: Normal left ventricular systolic function. Normal left ventricular cavity size. Normal left ventricular wall thickness. Ejection fraction is visually estimated at 5560 %. Abnormal Diastolic Function. Right Ventricle: Normal right ventricular systolic function. Mild enlargement of right ventricle. Left Atrium: There is severe enlargement of left atrium. Right Atrium: The right atrium is normal in size. Mitral Valve: Mild mitral leaflet calcification. Mild mitral annular calcification. Trace mitral regurgitation. Aortic Valve: Normal appearance of the aortic valve. No significant aortic stenosis or insufficiency. Tricuspid Valve: Normal appearance of the tricuspid valve. Estimated peak PA systolic pressure 40 mmHg. There is mild tricuspid regurgitation. Pulmonic Valve: Pulmonic valve not well visualized. There is trace pulmonic regurgitation. Pericardium: Normal pericardium with no significant pericardial effusion. Aorta: Normal aortic root. IVC: Normal size and normal respiratory collapse consistent with normal right atrial pressure. Conclusions 1.Normal left ventricular systolic function. Normal left ventricular cavity size. Normal left ventricular wall thickness. Ejection fraction is visually estimated at 55-60 %. Abnormal Diastolic Function. 2.Normal right ventricular systolic function. Mild enlargement of right ventricle. 3.There is severe enlargement of left atrium. 4.Mild mitral leaflet calcification. Mild mitral annular calcification. Trace mitral regurgitation. 5.Normal appearance of the tricuspid valve. Estimated peak PA systolic pressure 40 mmHg. There is mild tricuspid regurgitation. 6.Pulmonic valve not well visualized. There is trace pulmonic regurgitation. Electronically Signed By: David Donnelly 17-Feb-2017 14:54:14 -0700 Patient Name: MARIANELA MURILLO Study Date: 16-Feb-2017 [id number]
[2017-02-17] MEDS: GENTAMICIN 0.3% 5 ML OPH BOTH EYES SCH ×3 (16:28→20:59)
--- NOTE | 2017-02-17 17:35 | CONS ---
Date/Time of Note Date/Time of Note DATE: 02/17/17 TIME: 17:34 Consultation Date/Type/Reason Admit Date/Time Feb 15, 2017 at 15:58 Date of Consultation: Feb 17, 2017 Type of Consultation: ID Reason for Consultation Antibiotic management Psychological: no complaints Past Surgical History Past Surgical Hx: no surgical history Social History Smoking Status: Never smoker Exam/Review of Systems Vital Signs Vitals Vital Signs Date Time Temp Pulse Resp B/P Pulse Ox O2 Delivery O2 Flow Rate FiO2 02/17/17 16:06 98.5 18 125/77 95 02/17/17 16:00 65 02/15/17 21:20 Room Air Intake and Output 02/16/17 02/16/17 02/17/17 15:00 23:00 07:00 Intake Total 650 ml 500 ml Balance 650 ml 500 ml Results Result Diagram: 02/16/17 0520 02/16/17 05 Medications Medications Current Medications Ondansetron HCl (Zofran Inj) 4 mg Q6H PRN IV NAUSEA AND/OR VOMITING; Start at 20:30 Acetaminophen 650 mg 650 mg Q6H PRN PO PAIN LEVEL 1-3 OR FEVER; Start 02/15/17 at 20:30 Ceftriaxone Sodium (Rocephin) 50 ml @ 100 mls/hr Q24H IVPB Last administered on 02/16/17 18:10; Admin Dose 100 MLS/HR; Start 02/16/17 at 17:00 Atorvastatin Calcium (Lipitor) 80 mg QHS PO Last administered on 02/16/17 21: 57; Admin Dose 80 MG; Start 02/15/17 at 21:00 Docusate Sodium (Colace) 100 mg BID PO Last administered on 02/17/17 08:53; Admin Dose 100 MG; Start 02/15/17 at 21:00 Escitalopram Oxalate (Lexapro) 10 mg QHS PO Last administered on 02/16/17 21: 00; Admin Dose 10 MG; Start 02/15/17 at 21:00 Lisinopril (Zestril) 5 mg DAILY PO Last administered on 02/17/17 08:53; Admin Dose 5 MG; Start 02/16/17 at 09:00 Meclizine HCl (Antivert) 25 mg DAILY PRN PO DIZZINESS; Start 02/15/17 at 20:30 Metoprolol Succinate (Toprol Xl) 12.5 mg BID PO Last administered on 02/17/17 08:54; Admin Dose 12.5 MG; Start 02/15/17 at 21:00 Polyethylene Glycol (Miralax) 17 gm DAILY PO Last administered on 02/17/17 08: 52; Admin Dose 17 GM; Start 02/16/17 at 09:00 Simethicone (Mylicon) 160 mg TID PRN PO STOMACH UPSET; Start 02/15/17 at 20:30 Miscellaneous Information 23 mg DAILY PO ; Start 02/16/17 at 09:00; Status UNV Pantoprazole (Protonix Tab) 40 mg DAILY@06 PO Last administered on 02/17/17 06 :03; Admin Dose 40 MG; Start 02/16/17 at 06:00 Lactulose (Enulose) 20 gm TID PO Last administered on 02/17/17 08:52; Admin Dose 20 GM; Start 02/15/17 at 21:00 Zolpidem Tartrate (Ambien) 5 mg HS PRN PO INSOMNIA Last administered on 22:29; Admin Dose 5 MG; Start 02/15/17 at 21:00 Miscellaneous Information (*Order Clarification Bulletin) Lipase-Protease- Amylase* (Zaida WALKER* 3,000) 1 ... Q8H XX ; Start 02/16/17 at 12:00 Miscellaneous Information (*Order Clarification Bulletin) DONEPEZIL 23MG : PLEASE ASK FAMILY... Q8H XX ; Start 02/16/17 at 12:00 ENZO ARTEAGA MD Feb 17, 2017 17:35
[2017-02-17] MEDS: RIVAROXABAN 20 MG TABLET PO SCH (17:47)
[2017-02-17] MEDS: CEFTRIAXONE 1 GM/50 ML (PMX) 50 ML IVPB SCH (17:48)
[2017-02-17] MEDS: ZOLPIDEM 5 MG TAB PO PRN (20:57)
[2017-02-17] MEDS: ATORVASTATIN 80 MG TAB PO SCH (20:57)
[2017-02-17] MEDS: ESCITALOPRAM 10 MG TAB PO SCH (21:00)
--- NOTE | 2017-02-17 21:32 | HP ---
DATE OF ADMISSION: 02/15/2017 HISTORY OF PRESENT ILLNESS: This is an 82-year-old female with a past medical history of CVA with left-sided hemiparesis, history of hypertension, dyslipidemia, coronary artery disease, who presents to [facility] Emergency Room because of generalized weakness for 3 day and an episode of syncope. Patient denies any episodes of trauma, seizure activity, neck pain, nausea, vomiting, shortness of breath. Patient was subsequently admitted to telemetry. While on telemetry, patient was seen by spreader operator, Dr. Donnelly, for evaluation. A CT scan of the brain was obtained, which showed no acute intracranial pathology. Chest x-ray was also obtained, which shows cardiomegaly and lungs, but a carotid Doppler ultrasound shows less than 50 percent stenosis. Patient while on telemetry has been stable. There have been no episodes of hemoptysis, hematemesis, hematochezia. PAST MEDICAL HISTORY: As stated above. History of CVA, hypertension, dyslipidemia, disease. PAST SURGICAL HISTORY: Appendectomy, right inguinal hemiarthroplasty. MEDICATIONS: Reviewed and reconciled. FAMILY HISTORY: Noncontributory. SOCIAL HISTORY: Does not drink, smoke, or do drugs. REVIEW OF SYSTEMS: Fourteen-point review of systems was conducted. Pertinent positives in HPI, otherwise negative. PHYSICAL EXAMINATION: VITAL SIGNS: Blood pressure is 125/77, respirations 18, pulse 65, temperature 98.5. HEENT: Head is normocephalic. NECK: Supple. HEART: Regular rate. LUNGS: Show diminished breath sounds at the base. ABDOMEN: Soft, nontender to palpation. No rebound. No guarding. EXTREMITIES: Negative for clubbing, cyanosis, no edema. DERMATOLOGIC: No rashes. MUSCULOSKELETAL: No joint effusion. NEUROLOGIC: No change in exam. MEDICATIONS: Have been reviewed. LABORATORY DATA: Shows a white count 5.4, hemoglobin 11.1, hematocrit 33.9, platelet count . Sodium 138, potassium 3.7, BUN 10, creatinine 0.59. Patient has a urine culture positive for Klebsiella pneumonia. ASSESSMENT AND PLAN: This is an 82-year-old female who presents with: 1. Syncope. Etiology is unclear, possibly vasovagal, possibly secondary to urinary tract infection. Patient is currently stable on telemetry. Workup ongoing by Cardiology. Will continue current treatment plan. Monitor closely. 2. Systemic inflammatory response syndrome. Possible sepsis secondary to urinary tract infection. Patient is on antibiotic therapy. Continue follow up with Infectious Disease. 3. Coronary artery disease. Continue current medical management. 4. History of cerebrovascular accident with right-sided hemiparesis. Continue current treatment plan. 5. Hypertension. Continue current blood pressure regimen. 6. Hyperlipidemia. Continue statin therapy. 7. Anemia. Continue to monitor H and H levels. 8. History of soft tissue mass in the right acetabulum. Patient's workup has been completed. Will follow up with her primary oncologist, Dr. Huntley for further recommendations. 9. Debility. Continue physical therapy. 10. Dementia. 11. History of paroxysmal atrial fibrillation. Continue current medical management. Follow up with Cardiology. 12. Anxiety/depression. Continue Lexapro. Dictated By: Derrick Bloom DO /anders/kel /Document#: [id number]
--- NOTE | 2017-02-17 21:46 | CONS ---
Date/Time of Note Date/Time of Note DATE: 02/17/17 TIME: 21:37 Assessment/Plan Assessment/Plan Chief Complaint/Hosp Course Neuroexam: AOx3, fluent speech, decreased response to visual threat from the left, pupils reactive 4 to 3 mm right, 3 to 2 mm on the left, EOMI, left afcial droop, normal sensations, tongue on midline. Increased tone, spasticity LUE, 1/ 5, LLE 3+/5. Sensory intact, to touch. DTR 2 on the right, 3 on the left, left babinski. Coordination intact RUE, no dysmetria or tremor A/P: Generalized weakness, improving. UTI. Hx of CVA. Possible syncope, pt denies, a.fib, card on case. On anticoagulation, keep normotensive euglycemic, continue statin Problems: Consultation Date/Type/Reason Admit Date/Time Feb 15, 2017 at 15:58 Type of Consultation: neurology Hx of Present Illness 82 y/o female with 3 days of generalized weakness, questionable syncope, pt denies now. Better now Psychological: no complaints Past Medical History a.fib, cva with left sided weakness Medical History: high cholesterol, hypertension Past Surgical History Past Surgical Hx: no surgical history Family History Significant Family History: hypertension Social History Alcohol Use: none Smoking Status: Never smoker Drug Use: none Exam/Review of Systems Vital Signs Vitals Vital Signs Date Time Temp Pulse Resp B/P Pulse Ox O2 Delivery O2 Flow Rate FiO2 02/17/17 19:45 98.6 71 17 104/61 94 02/15/17 21:20 Room Air Intake and Output 02/16/17 02/16/17 02/17/17 15:00 23:00 07:00 Intake Total 650 ml 500 ml Balance 650 ml 500 ml Exam Constitutional: alert, oriented, well developed Head: atraumatic, normocephalic Eyes: EOMI, nl conjunctiva Neck: non-tender, supple Respiratory: clear to auscultation, normal air movement Cardiovascular: irregular rhythm Gastrointestinal: non-tender, soft Results Result Diagram: 02/16/1751902/16/17519 Medications Medications Current Medications Ondansetron HCl (Zofran Inj) 4 mg Q6H PRN IV NAUSEA AND/OR VOMITING; Start at 20:30 Acetaminophen 650 mg 650 mg Q6H PRN PO PAIN LEVEL 1-3 OR FEVER; Start 02/15/17 at 20:30 Ceftriaxone Sodium (Rocephin) 50 ml @ 100 mls/hr Q24H IVPB Last administered on 02/17/17 17:48; Admin Dose 100 MLS/HR; Start 02/16/17 at 17:00 Atorvastatin Calcium (Lipitor) 80 mg QHS PO Last administered on 02/17/17 20: 57; Admin Dose 80 MG; Start 02/15/17 at 21:00 Docusate Sodium (Colace) 100 mg BID PO Last administered on 02/17/17 20:57; Admin Dose 100 MG; Start 02/15/17 at 21:00 Escitalopram Oxalate (Lexapro) 10 mg QHS PO Last administered on 02/16/17 21: 00; Admin Dose 10 MG; Start 02/15/17 at 21:00 Lisinopril (Zestril) 5 mg DAILY PO Last administered on 02/17/17 08:53; Admin Dose 5 MG; Start 02/16/17 at 09:00 Meclizine HCl (Antivert) 25 mg DAILY PRN PO DIZZINESS; Start 02/15/17 at 20:30 Metoprolol Succinate (Toprol Xl) 12.5 mg BID PO Last administered on 02/17/17 21:03; Admin Dose 12.5 MG; Start 02/15/17 at 21:00 Polyethylene Glycol (Miralax) 17 gm DAILY PO Last administered on 02/17/17 08: 52; Admin Dose 17 GM; Start 02/16/17 at 09:00 Simethicone (Mylicon) 160 mg TID PRN PO STOMACH UPSET; Start 02/15/17 at 20:30 Miscellaneous Information 23 mg DAILY PO ; Start 02/16/17 at 09:00; Status UNV Pantoprazole (Protonix Tab) 40 mg DAILY@06 PO Last administered on 02/17/17 06 :03; Admin Dose 40 MG; Start 02/16/17 at 06:00 Lactulose (Enulose) 20 gm TID PO Last administered on 02/17/17 08:52; Admin Dose 20 GM; Start 02/15/17 at 21:00 Zolpidem Tartrate (Ambien) 5 mg HS PRN PO INSOMNIA Last administered on 8/23/ 17at 20:57; Admin Dose 5 MG; Start 02/15/17 at 21:00 Miscellaneous Information (*Order Clarification Bulletin) Lipase-Protease- Amylase* (Zaida WALKER* 3,000) 1 ... Q8H XX ; Start 02/16/17 at 12:00 Miscellaneous Information (*Order Clarification Bulletin) DONEPEZIL 23MG : PLEASE ASK FAMILY... Q8H XX ; Start 02/16/17 at 12:00 GA GRIER MD Feb 17, 2017 21:46
[2017-02-18] VITALS (14 sets, daily range): BP systolic 101–142; BP diastolic 60–78; PULSE 66–102; RESP 18–20
[2017-02-18] MEDS: GENTAMICIN 0.3% 5 ML OPH BOTH EYES SCH ×6 (01:00→21:00)
[2017-02-18] MEDS: [UNRECOGNIZED DRUG - REMARK] XX SCH ×2 (01:37→11:28)
[2017-02-18] MEDS: AMYLASE XX SCH ×2 (04:00→11:28)
[2017-02-18] MEDS: LIPASE XX SCH ×2 (04:00→11:28)
[2017-02-18] MEDS: [UNRECOGNIZED DRUG - OTHER] XX SCH ×2 (04:00→11:28)
--- NOTE | 2017-02-18 04:48 | CONS ---
DATE OF ADMISSION: 02/15/2017 DATE OF CONSULTATION: 02/17/2017 REASON FOR CONSULTATION: Antibiotic management. HISTORY OF PRESENT ILLNESS: Karlee Woodward is an 82-year-old female who was admitted on the , with a history of "fainting." Her past problems include: 1. History of CVA with left hemiparesis. 2. Hypertension. 3. Dyslipidemia. 4. Coronary artery disease. 5. Status post appendectomy. 6. Status post right inguinal herniorrhaphy. The patient has had generalized weakness for 3 days and episodes of fainting since going to, I guess, visit her son today. As noted, she has a history of stroke, hyperlipidemia, hypertension, and coronary artery disease. On admission, her white count was 5.7, H and H of 11.8 and 36.1, platelet count 343,000. BUN and creatinine are 11 and 0.61. PAST MEDICAL HISTORY: Operations as outlined. FAMILY HISTORY: Noncontributory. SOCIAL HISTORY: She does not smoke, drink, or abuse drugs. ALLERGIES: NONE TO PENICILLIN, SULFA, OR FOODS. MEDICATION: Per chart. REVIEW OF SYSTEMS: As per HPI. PHYSICAL EXAMINATION: GENERAL: The patient is an elderly appearing female who is awake, responsive, in no acute distress. VITAL SIGNS: Stable. She is afebrile. SKIN: Without generalized rash. HEENT: Within normal limits. NECK: Supple. Lymph nodes are nonpalpable. CHEST: Decreased breath sounds at the bases. HEART: Without murmur or gallop. ABDOMEN: Soft and nontender without organosplenomegaly or masses. EXTREMITIES: Without cyanosis, clubbing, or edema. RECTAL AND GENITAL: Deferred. NEUROLOGIC: She has mild left hemiparesis. LABORATORY: The patient was started on ceftriaxone. Her white count today is 5.4. Her urine shows positive for nitrites, trace leukocyte esterase. Her urine culture is growing salazar pneumoniae, which is sensitive to everything, including ceftriaxone. Chest x- ray shows hypoinflated lungs with atelectasis at the lung base and cardiomegaly with calcified atherosclerosis in the aorta. IMPRESSION: The patient comes in now with urinary tract infection. She has been seen by Dr. Huntley. She is on Xarelto for possible ventral probable embolic complications and for atrial fibrillation. Will continue her on this current therapy. I will dictate my findings to Dr. Bloom, to Dr. Huntley, Dr. Donnelly, Dr. Abel. Dictated By: Sameer Mims MD JD/anders/mira /Document#: [id number]
[2017-02-18] MEDS: PANTOPRAZOLE (EC) 40 MG TAB PO SCH (06:28)
[2017-02-18 07:43] LABS: BASOPHIL # 0.1 10^3/ul (0.0-0.1); EOSINOPHILS # 0.1 10^3/ul (0.0-0.5); EOSINOPHILS % 1.8 % (0.0-7.0); HEMATOCRIT 35.6 % (37.0-47.0); HEMOGLOBIN 11.4 g/dl (12.0-16.0); LYMPHOCYTES # 2.2 10^3/ul (0.8-2.9); LYMPHOCYTES % 36.1 % (15.0-51.0); MEAN CORPUSCULAR HEMOGLOBIN 28.9 pg (29.0-33.0); MEAN CORPUSCULAR VOLUME 90.1 fl (82.0-101.0); MONOCYTE # 0.4 10^3/ul (0.3-0.9); MONOCYTES % 6.8 % (0.0-11.0); NEUTROPHILS % 53.8 % (39.0-77.0); PLATELET COUNT 351 10^3/UL (140-415); RED BLOOD COUNT 3.95 10^6/ul (4.20-5.40); RED CELL DISTRIBUTION WIDTH 14.2 % (11.5-14.5); WHITE BLOOD COUNT 6.1 10^3/ul (4.8-10.8)
[2017-02-18] MEDS: DOCUSATE SODIUM 100 MG CAP PO SCH ×2 (08:38→21:13)
[2017-02-18] MEDS: LACTULOSE 30ML CUP PO SCH ×3 (08:39→21:00)
[2017-02-18] MEDS: POLYETHYLENE GLYCOL 17 GM PACKET PO SCH (08:39)
[2017-02-18] MEDS: METOPROLOL (XL) 25 MG TAB PO SCH ×2 (08:48→21:00)
[2017-02-18] MEDS: LISINOPRIL 5 MG TAB PO SCH (08:48)
--- NOTE | 2017-02-18 09:22 | PN ---
DATE: 02/18/2017 SUBJECTIVE DATA: The patient is stable. No events overnight. No fevers, chills, nausea, vomiting. No shortness of breath. OBJECTIVE DATA: VITAL SIGNS: Blood pressure 114/77, respirations 18, pulse 94, temperature 98.6. HEENT: Head is normocephalic. NECK: Supple. HEART: Regular rate. LUNGS: Show diminished breath sounds at the base. ABDOMEN: Soft, nontender to palpation. No rebound or guarding. EXTREMITIES: Negative for clubbing, cyanosis. No edema. DERMATOLOGIC: Clean. No rashes. MUSCULOSKELETAL: No joint effusion. NEUROLOGIC: No focal deficits. MEDICATIONS: Reviewed. LABORATORY AND DIAGNOSTIC DATA: Shows a white count 6.1, hemoglobin 9.4, crit 25.6, platelet count is 351. ASSESSMENT AND PLAN: 1. Syncope. Etiology is unclear, possibly vasovagal. The patient has been seen by neurologist, Dr. Garcia and cloth shrinking machine operator helper, Dr. Donnelly. At this point, continue current treatment plan. We will follow with recommendations. 2. Urinary tract infection. Continue current antibiotic regimen. Follow up with Infectious Disease. 3. Coronary artery disease. The patient has been seen by Cardiology. No evidence of acute coronary syndrome. Continue medical management. 4. History of cerebrovascular accident with right-sided hemiparesis. Continue medical management. 5. Hypertension. Continue current treatment plan. 6. Continue with statin therapy. 7. Anemia. Continue to monitor H and H levels. 8. Debility. Continue physical therapy. 9. Dementia. Continue to monitor. 10. Paroxysmal atrial fibrillation. Currently in sinus rhythm. 11. Anxiety, depression. Continue Lexapro. Dictated By: Derrick Bloom DO /anders/elkin /Document#: [id number]
[2017-02-18 10:28] LABS: CALCIUM 9.3 mg/dl (8.4-10.2); CREATININE 0.64 mg/dl (0.44-1.00); PHOSPHORUS 3.3 mg/dl (2.5-4.9); POTASSIUM 4.1 mmol/L (3.5-5.1)
--- NOTE | 2017-02-18 13:29 | CONS ---
Date/Time of Note Date/Time of Note DATE: 02/18/17 TIME: 13:26 Assessment/Plan Assessment/Plan Chief Complaint/Hosp Course IMPRESSION: 1. Syncope. -NL EF by echo/RV enlargement with NL RV function/negative trop x 3/negative orthostatics/no sig arrythmias by ecg 2. Hypertension. 3. Dyslipidemia. 4. History of cerebrovascular accident. 5. Dementia. 6. Possible urinary tract infection. 7. PAF on xarelto 8. H/O cva Recc: -Tele -serial ecg's -Continue low dose BB -Continue statin -Continue xarelto Problems: Consultation Date/Type/Reason Admit Date/Time Feb 18, 2017 at 08:37 Initial Consult Date 02/15/17 Type of Consultation: cardiology Reason for Consultation syncope Referring Provider: FORTUNATO ALBERTO DO Exam/Review of Systems Vital Signs Vitals Vital Signs Date Time Temp Pulse Resp B/P Pulse Ox O2 Delivery O2 Flow Rate FiO2 02/18/17 12:44 73 02/18/17 11:50 97.8 18 133/69 100 02/15/17 21:20 Room Air Intake and Output 02/17/17 02/17/17 02/18/17 15:00 23:00 07:00 Intake Total 770 ml 500 ml Balance 770 ml 500 ml Exam Review of Systems: CONSTITUTIONAL: No fevers, chills. PULMONARY: No sob CARDIOVASCULAR: No chest pain/palpitations GASTROINTESTINAL: No nausea/vomiting. GENITOURINARY: No hematuria/dysuria. MUSCULOSKELETAL: No myagias/arthalgias. PSYCHIATRIC: The patient denies depression. NEUROLOGIC: No weakness Constitutional: alert Psych: no complaints Head: normocephalic ENMT: mucosa pink and moist Neck: jvd (9 cm water), supple Respiratory: diminished breath sounds (at bases/B) Cardiovascular: regular rate and rhythm Gastrointestinal: non-tender, soft Musculoskeletal: muscle tone (normal) Extremities: edema (none) Neurological: other (NO focal deficits) Results Result Diagram: 02/18/17 0659 02/18/17 0659 Results 24 hrs Laboratory Tests Test 02/18/17 06:59 White Blood Count 6.1 Red Blood Count 3.95 L Hemoglobin 11.4 L Hematocrit 35.6 L Mean Corpuscular Volume 90.1 Mean Corpuscular Hemoglobin 28.9 L Mean Corpuscular Hemoglobin Concent 32.0 Red Cell Distribution Width 14.2 Platelet Count 351 Mean Platelet Volume 10.0 Neutrophils % 53.8 Lymphocytes % 36.1 Monocytes % 6.8 Eosinophils % 1.8 Basophils % 1.0 Nucleated Red Blood Cells % 0.0 Neutrophils # (Manual) 3 Lymphocytes # 2.2 Monocytes # 0.4 Eosinophils # 0.1 Basophils # 0.1 Nucleated Red Blood Cells # 0.0 Sodium Level 138 Potassium Level 4.1 Chloride Level 104 Carbon Dioxide Level 24 Anion Gap 14 Blood Urea Nitrogen 14 Creatinine 0.64 Glucose Level 101 Calcium Level 9.3 Phosphorus Level 3.3 Magnesium Level 2.0 Medications Medications Current Medications Ondansetron HCl (Zofran Inj) 4 mg Q6H PRN IV NAUSEA AND/OR VOMITING; Start at 20:30 Acetaminophen 650 mg 650 mg Q6H PRN PO PAIN LEVEL 1-3 OR FEVER; Start 02/15/17 at 20:30 Ceftriaxone Sodium (Rocephin) 50 ml @ 100 mls/hr Q24H IVPB Last administered on 02/17/17 17:48; Admin Dose 100 MLS/HR; Start 02/16/17 at 17:00 Atorvastatin Calcium (Lipitor) 80 mg QHS PO Last administered on 02/17/17 20: 57; Admin Dose 80 MG; Start 02/15/17 at 21:00 Docusate Sodium (Colace) 100 mg BID PO Last administered on 02/17/17 20:57; Admin Dose 100 MG; Start 02/15/17 at 21:00 Escitalopram Oxalate (Lexapro) 10 mg QHS PO Last administered on 02/16/17 21: 00; Admin Dose 10 MG; Start 02/15/17 at 21:00 Lisinopril (Zestril) 5 mg DAILY PO Last administered on 02/18/17 08:48; Admin Dose 5 MG; Start 02/16/17 at 09:00 Meclizine HCl (Antivert) 25 mg DAILY PRN PO DIZZINESS; Start 02/15/17 at 20:30 Metoprolol Succinate (Toprol Xl) 12.5 mg BID PO Last administered on 02/18/17 08:48; Admin Dose 12.5 MG; Start 02/15/17 at 21:00 Polyethylene Glycol (Miralax) 17 gm DAILY PO Last administered on 02/17/17 08: 52; Admin Dose 17 GM; Start 02/16/17 at 09:00 Simethicone (Mylicon) 160 mg TID PRN PO STOMACH UPSET; Start 02/15/17 at 20:30 Pantoprazole (Protonix Tab) 40 mg DAILY@06 PO Last administered on 02/18/17 06 :28; Admin Dose 40 MG; Start 02/16/17 at 06:00 Lactulose (Enulose) 20 gm TID PO Last administered on 02/17/17 08:52; Admin Dose 20 GM; Start 02/15/17 at 21:00 Zolpidem Tartrate (Ambien) 5 mg HS PRN PO INSOMNIA Last administered on 20:57; Admin Dose 5 MG; Start 02/15/17 at 21:00 DAVID TESFAYE Feb 18, 2017 13:29
--- NOTE | 2017-02-18 14:30 | PN ---
DATE: 02/18/2017 SUBJECTIVE DATA: No events overnight. The patient is alert, looks comfortable. Denies pain. No fevers. OBJECTIVE DATA: VITAL SIGNS: Temperature 97.8, pulse 66, respirations 18, blood pressure 133/69, saturation 100 percent on room air. LABORATORY AND DIAGNOSTIC DATA: WBC 6.1, platelets 351, no shift, no bands. BUN is 14, creatinine 0.64. ANTIMICROBIALS: The patient is on ceftriaxone. MICROBIOLOGY: Urine culture growing Klebsiella pneumonia. PHYSICAL EXAMINATION: GENERAL: This is a well-developed, well-nourished, fragile elderly woman, who is alert, in no distress. HEENT: Head atraumatic, normocephalic. Sclerae anicteric. Buccal mucosa pink. NECK: Supple. CHEST: Rise symmetrical. Breath sounds clear. HEART: S1, S2. ABDOMEN: Soft, bowel sounds present. EXTREMITIES: Without cyanosis. ASSESSMENT: 1. Urinary tract infection. 2. Cerebrovascular accident (CVA). 3. Hypertension. 4. Dyslipidemia. PLAN: 1. The patient remains stable. 2. We will continue her on current antimicrobials to complete treatment for urinary tract infection. 3. Continue management as per primary team and consultants, patient is being seen by Neurology and Cardiology. Dictated By: Jake Jimenez NP /anders/raiza /Document#: [id number]
[2017-02-18] MEDS ORDERED: LORAZEPAM 2 MG INJ IV ONE (16:00)
--- NOTE | 2017-02-18 16:38 | RADRPT ---
PROCEDURE: CT head without intravenous contrast CLINICAL INDICATION: New onset tremors. COMPARISON: CT from 02/15/2017. TECHNIQUE: Axial CT images from skull base to vertex. DOSE: The estimated administered radiation dose was CTDI vol = 45 mGy. DLP = 720 mGy-cm. One or mor e of the following dose reduction techniques were used: automated exposure control, adjustment of th e mA and/or kV according to patient size, or use of iterative reconstruction. FINDINGS: Parenchyma: No acute hemorrhage, large territorial infarction, or mass. Old infarction within the ri ght frontal lobe. Mild amount of periventricular and subcortical white matter hypodensity, a nonspec ific finding often associated with chronic microangiopathy. Ventricles: Slight ex vacuo dilation of the lateral ventricles. Extra-axial spaces: No herniation or midline shift. Paranasal sinuses: Clear. Mastoids and middle ears: Clear. Visualized orbits: Normal. Vessels: No calcified atherosclerotic arterial plaque identified. Bones: Normal. Extracranial soft tissues: Normal. Additional comment: None. IMPRESSION: 1. No acute hemorrhage or new territorial infarction. 2. Old infarction within the right middle cerebral artery territory. RPTAT: PP Physician Pacheco Date Time Electronically viewed and signed by Physician Pacheco on 02/18/2017 16:37 LG/
--- NOTE | 2017-02-18 17:32 | EN ---
Date/Time of Note Date/Time of Note DATE: 02/18/17 TIME: 17:31 Event Note Medicine Medicine Event Note Rapid response team: Called for seizure activity Patient was noted to have rhythmic shaking of her LLE into her LLQ abdominal muscles. She remained alert the whole time and in no distress. VSS She was given 2 mg ativan and seizure activity stopped Will be sent for head CT Dr Bloom was made aware JUVENTINO WISEMAN MD Feb 18, 2017 17:32
[2017-02-18] MEDS: RIVAROXABAN 20 MG TABLET PO SCH (17:55)
[2017-02-18] MEDS: CEFTRIAXONE 1 GM/50 ML (PMX) 50 ML IVPB SCH (17:55)
--- NOTE | 2017-02-18 20:14 | CONS ---
Date/Time of Note Date/Time of Note DATE: 02/18/17 TIME: 20:10 Consult Date/Type/Reason Admit Date/Time Feb 18, 2017 at 08:37 Initial Consult Date 02/17/17 Type of Consultation: neurology Ordering Provider: FORTUNATO ALBERTO DO Subjective left sided tremor? earlier today, improved with ativan. Repeat CT negative. No new medications. Objective Vital Signs Date Time Temp Pulse Resp B/P Pulse Ox O2 Delivery O2 Flow Rate FiO2 02/18/17 19:47 97.4 67 19 101/64 93 02/15/17 21:20 Room Air Intake and Output 02/17/17 02/17/17 02/18/17 15:00 23:00 07:00 Intake Total 770 ml 500 ml Balance 770 ml 500 ml Results/Medications Result Diagram: 02/18/17 0659 02/18/17 0659 Results 24 hrs Laboratory Tests Test 02/18/17 06:59 02/18/17 15:45 White Blood Count 6.1 Red Blood Count 3.95 L Hemoglobin 11.4 L Hematocrit 35.6 L Mean Corpuscular Volume 90.1 Mean Corpuscular Hemoglobin 28.9 L Mean Corpuscular Hemoglobin Concent 32.0 Red Cell Distribution Width 14.2 Platelet Count 351 Mean Platelet Volume 10.0 Neutrophils % 53.8 Lymphocytes % 36.1 Monocytes % 6.8 Eosinophils % 1.8 Basophils % 1.0 Nucleated Red Blood Cells % 0.0 Neutrophils # (Manual) 3 Lymphocytes # 2.2 Monocytes # 0.4 Eosinophils # 0.1 Basophils # 0.1 Nucleated Red Blood Cells # 0.0 Sodium Level 138 Potassium Level 4.1 Chloride Level 104 Carbon Dioxide Level 24 Anion Gap 14 Blood Urea Nitrogen 14 Creatinine 0.64 Glucose Level 101 Calcium Level 9.3 Phosphorus Level 3.3 Magnesium Level 2.0 Bedside Glucose 106 Medications Current Medications Ondansetron HCl (Zofran Inj) 4 mg Q6H PRN IV NAUSEA AND/OR VOMITING; Start at 20:30 Acetaminophen 650 mg 650 mg Q6H PRN PO PAIN LEVEL 1-3 OR FEVER; Start 02/15/17 at 20:30 Ceftriaxone Sodium (Rocephin) 50 ml @ 100 mls/hr Q24H IVPB Last administered on 02/18/17t 17:55; Admin Dose 100 MLS/HR; Start 02/16/17 at 17:00 Atorvastatin Calcium (Lipitor) 80 mg QHS PO Last administered on 02/17/17 20: 57; Admin Dose 80 MG; Start 02/15/17 at 21:00 Docusate Sodium (Colace) 100 mg BID PO Last administered on 02/17/17 20:57; Admin Dose 100 MG; Start 02/15/17 at 21:00 Escitalopram Oxalate (Lexapro) 10 mg QHS PO Last administered on 02/16/17 21: 00; Admin Dose 10 MG; Start 02/15/17 at 21:00 Lisinopril (Zestril) 5 mg DAILY PO Last administered on 02/18/17 08:48; Admin Dose 5 MG; Start 02/16/17 at 09:00 Meclizine HCl (Antivert) 25 mg DAILY PRN PO DIZZINESS; Start 02/15/17 at 20:30 Metoprolol Succinate (Toprol Xl) 12.5 mg BID PO Last administered on 02/18/17 08:48; Admin Dose 12.5 MG; Start 02/15/17 at 21:00 Polyethylene Glycol (Miralax) 17 gm DAILY PO Last administered on 02/17/17 08: 52; Admin Dose 17 GM; Start 02/16/17 at 09:00 Simethicone (Mylicon) 160 mg TID PRN PO STOMACH UPSET Last administered on 02/18 17:55; Admin Dose 160 MG; Start 02/15/17 at 20:30 Pantoprazole (Protonix Tab) 40 mg DAILY@06 PO Last administered on 02/18/17 06 :28; Admin Dose 40 MG; Start 02/16/17 at 06:00 Lactulose (Enulose) 20 gm TID PO Last administered on 02/17/17 08:52; Admin Dose 20 GM; Start 02/15/17 at 21:00 Zolpidem Tartrate (Ambien) 5 mg HS PRN PO INSOMNIA Last administered on 20:57; Admin Dose 5 MG; Start 02/15/17 at 21:00 Clonidine (Catapres) 0.1 mg Q6H PRN PO ELEVATED SYSTOLIC BP; Start 02/18/17 at 16:00 Assessment/Plan Chief Complaint/Hosp Course Neuroexam: AOx2 (feb 16) , fluent speech, decreased response to visual threat from the left, pupils reactive 4 to 3 mm right, 3 to 2 mm on the left, EOMI, left afcial droop, normal sensations, tongue on midline. Increased tone, spasticity LUE/LE, 0-1/5, . Sensory intact, to touch. DTR 2 on the right, 3 on the left, left babinski. 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 MRI brain requested. EEG. Keppra 500 mg bid, ativan prn. Admitted with 3 days of generalized weakness, improving. UTI. Hx of CVA. Possible syncope, pt farshadies, chelly, card on case. On anticoagulation, keep normotensive euglycemic, continue statin Problems: AG GRIER MD Feb 18, 2017 20:14
[2017-02-18] MEDS: ATORVASTATIN 80 MG TAB PO SCH (21:13)
[2017-02-18] MEDS: ESCITALOPRAM 10 MG TAB PO SCH (21:13)
[2017-02-18] MEDS: LEVETIRACETAM IV 500 MG in SOD CHLORIDE 0.9% 100 ML IVPB SCH (21:15)
[2017-02-18] MEDS: ZOLPIDEM 5 MG TAB PO PRN (23:21)
--- NOTE | 2017-02-18 23:26 | CONS ---
Date/Time of Note Date/Time of Note DATE: 02/18/17 TIME: 23:26 Assessment/Plan Assessment/Plan Chief Complaint/Hosp Course IMPRESSION: ANEMIA MONITOR BLOOD COUNT CLOSELY COMPLETE W-UP Syncope. cardiology f-up, rule out cardiac arrhythmia. Ruled out acute coronary syndrome. admit patient to telemetry CARD CONSULT follow blood pressures closely with possible need for low- dose beta ted per cardiology resumed Xarelto at this time for possible ventral thromboembolic complications. It is for atrial fibrillation. workup for infarction- Check troponin q.6h x3. fasting lipid panel for general stratification and initiate lipid medications necessary. 2D echo to rule out any decreased EF for significant valvular wall motion abnormalities that may be associated with the syncopal episode. SZ- NEURO DECONDITIONING START PT Hypertension. Dyslipidemia. History of cerebrovascular accident. Dementia. Possible urinary tract infection. Possible cardiac arrhythmias by medications. Problems: Consultation Date/Type/Reason Admit Date/Time Feb 18, 2017 at 08:37 Initial Consult Date 02/15/17 Type of Consultation: hemeon Referring Provider: FORTUNATO ALBERTO DO 24 HR Interval Summary Free Text/Dictation H/H STABLE + SZ Exam/Review of Systems Vital Signs Vitals Vital Signs Date Time Temp Pulse Resp B/P Pulse Ox O2 Delivery O2 Flow Rate FiO2 02/18/17 20:00 76 02/18/17 19:47 97.4 19 101/64 93 02/15/17 21:20 Room Air Intake and Output 02/17/17 02/17/17 02/18/17 15:00 23:00 07:00 Intake Total 770 ml 500 ml Balance 770 ml 500 ml Exam GENERAL: The patient is alert, awake, in no acute distress. NECK: JVP approximately 8-9 cm of water. LUNGS: Fair air movement throughout. HEART: Regular rate and rhythm. Normal S1, S2, 1/6 systolic murmur, nondisplaced PMI. ABDOMEN: Positive bowel sounds. Soft. EXTREMITIES: No edema. 1+ pulses bilaterally posterior tibia. + SZ Results Result Diagram: 02/18/17 0659 02/18/17 0659 Results 24 hrs Laboratory Tests Test 02/18/17 06:59 02/18/17 15:45 White Blood Count 6.1 Red Blood Count 3.95 L Hemoglobin 11.4 L Hematocrit 35.6 L Mean Corpuscular Volume 90.1 Mean Corpuscular Hemoglobin 28.9 L Mean Corpuscular Hemoglobin Concent 32.0 Red Cell Distribution Width 14.2 Platelet Count 351 Mean Platelet Volume 10.0 Neutrophils % 53.8 Lymphocytes % 36.1 Monocytes % 6.8 Eosinophils % 1.8 Basophils % 1.0 Nucleated Red Blood Cells % 0.0 Neutrophils # (Manual) 3 Lymphocytes # 2.2 Monocytes # 0.4 Eosinophils # 0.1 Basophils # 0.1 Nucleated Red Blood Cells # 0.0 Sodium Level 138 Potassium Level 4.1 Chloride Level 104 Carbon Dioxide Level 24 Anion Gap 14 Blood Urea Nitrogen 14 Creatinine 0.64 Glucose Level 101 Calcium Level 9.3 Phosphorus Level 3.3 Magnesium Level 2.0 Bedside Glucose 106 Medications Medications Current Medications Ondansetron HCl (Zofran Inj) 4 mg Q6H PRN IV NAUSEA AND/OR VOMITING; Start at 20:30 Acetaminophen 650 mg 650 mg Q6H PRN PO PAIN LEVEL 1-3 OR FEVER; Start 02/15/17 at 20:30 Ceftriaxone Sodium (Rocephin) 50 ml @ 100 mls/hr Q24H IVPB Last administered on 02/18/17 17:55; Admin Dose 100 MLS/HR; Start 02/16/17 at 17:00 Atorvastatin Calcium (Lipitor) 80 mg QHS PO Last administered on 02/18/17 21: 13; Admin Dose 80 MG; Start 02/15/17 at 21:00 Docusate Sodium (Colace) 100 mg BID PO Last administered on 02/18/17 21:13; Admin Dose 100 MG; Start 02/15/17 at 21:00 Escitalopram Oxalate (Lexapro) 10 mg QHS PO Last administered on 02/18/17 21: 13; Admin Dose 10 MG; Start 02/15/17 at 21:00 Lisinopril (Zestril) 5 mg DAILY PO Last administered on 02/18/17 08:48; Admin Dose 5 MG; Start 02/16/17 at 09:00 Meclizine HCl (Antivert) 25 mg DAILY PRN PO DIZZINESS; Start 02/15/17 at 20:30 Metoprolol Succinate (Toprol Xl) 12.5 mg BID PO Last administered on 02/18/17 08:48; Admin Dose 12.5 MG; Start 02/15/17 at 21:00 Polyethylene Glycol (Miralax) 17 gm DAILY PO Last administered on 02/17/17 08: 52; Admin Dose 17 GM; Start 02/16/17 at 09:00 Simethicone (Mylicon) 160 mg TID PRN PO STOMACH UPSET Last administered on 02/18 17:55; Admin Dose 160 MG; Start 02/15/17 at 20:30 Pantoprazole (Protonix Tab) 40 mg DAILY@06 PO Last administered on 02/18/17 06 :28; Admin Dose 40 MG; Start 02/16/17 at 06:00 Lactulose (Enulose) 20 gm TID PO Last administered on 02/18/17 21:00; Admin Dose 20 GM; Start 02/15/17 at 21:00 Zolpidem Tartrate (Ambien) 5 mg HS PRN PO INSOMNIA Last administered on 23:21; Admin Dose 5 MG; Start 02/15/17 at 21:00 Clonidine 0.1 mg 0.1 mg Q6H PRN PO ELEVATED SYSTOLIC BP; Start 02/18/17 at 16: 00 Levetiracetam/ Sodium Chloride (Keppra Iv/NS) 105 ml @ 430 mls/hr Q12 IVPB Last administered on 02/18/17 21:15; Admin Dose 430 MLS/HR; Start 02/18/17 at 21:00 TERRA RANGEL MD Feb 18, 2017 23:26
--- NOTE | 2017-02-18 23:43 | RADRPT ---
PROCEDURE: MR Brain without contrast. CLINICAL INDICATION: 82-year-old female with new onset of seizures. TECHNIQUE: An MRI of the brain was performed without contrast utilizing the following sequences: Sagittal T1 weighted, sagittal FLAIR, axial T1, axial FLAIR, axial T2 weighted, axial diffusion weig hted, axial ADC mapping. Images were reviewed on a PACS workstation. COMPARISON: CT head 02/18/2017, 02/15/2017 FINDINGS: Diffusion weighted sequences demonstrate subtle areas of diffusion restriction involving the deep po rtions of the large right middle cerebral artery distribution infarct (axial series image [id number]) as well as the right periventricular region (axial series image 20). There is a prominent area of encep halomalacia involving the right frontal operculum, lateral right frontal lobe, right frontal and par ietal lobes. There is no evidence of hemorrhagic conversion. There is no intracranial hemorrhage, extra-axial fluid collection, mass lesion, midline shift or hydrocephalous. There is baseline of mo derate prominence of the cerebral sulci, lateral and third ventricles. The basal cisterns are patent . There is severe patchy and confluent periventricular and subcortical white matter T2 / FLAIR sign al hyperintensity, with extensive gliosis involving the right cerebral hemisphere in the regions of the chronic right MCA distribution infarct. Normal flow voids are visible the proximal intracranial arteries and dural sinuses, indicating patency. The midline structures are intact. The paranasal sinuses, mastoid air cells and middle ear cavities are normally aerated. The orbits, calvarium and extracranial soft tissues are normal in appearance. IMPRESSION: 1. Large remote right MCA distribution infarct involving the right frontal and parietal lobes with extensive encephalomalacia and gliosis in the underlying white matter. In the deepest portions of t he ounce infarct, there are small areas of acute/recent infarct superimposed on the chronic infarct. 2. Small area of acute/recent infarct involving the right periventricular white matter. 3. No intracranial hemorrhage, mass lesion or hydrocephalous. The above findings were discussed with Patient's Nurse Rebeca by telephone on 02/18/2017 11:39:10 PM. RPTAT: HGAS .Choco Cox MD, MD Date Time Electronically viewed and signed by .Choco Cox MD, on 02/18/2017 23:43 .S/
[2017-02-19] VITALS (11 sets, daily range): BP systolic 98–151; BP diastolic 53–79; PULSE 65–75; RESP 18–20
[2017-02-19] MEDS: GENTAMICIN 0.3% 5 ML OPH BOTH EYES SCH ×6 (01:00→21:09)
[2017-02-19] MEDS: PANTOPRAZOLE (EC) 40 MG TAB PO SCH (06:00)
[2017-02-19] MEDS: LEVETIRACETAM IV 500 MG in SOD CHLORIDE 0.9% 100 ML IVPB SCH ×2 (09:34→21:09)
[2017-02-19] MEDS: DOCUSATE SODIUM 100 MG CAP PO SCH ×2 (09:34→21:10)
[2017-02-19] MEDS: POLYETHYLENE GLYCOL 17 GM PACKET PO SCH (09:35)
[2017-02-19] MEDS: LACTULOSE 30ML CUP PO SCH ×3 (09:35→21:00)
[2017-02-19] MEDS: LISINOPRIL 5 MG TAB PO SCH (09:36)
[2017-02-19] MEDS: METOPROLOL (XL) 25 MG TAB PO SCH ×2 (09:36→21:00)
[2017-02-19] MEDS: BACLOFEN 10 MG TAB PO SCH ×2 (10:30→21:10)
--- NOTE | 2017-02-19 12:08 | PN ---
DATE: 02/19/2017 SUBJECTIVE DATA: The patient had an episode of a twitching spasm yesterday. The patient had a stat CT scan and MRI of the brain, which showed findings of a small area of acute infarct of the right periventricular white matter. No hemorrhage was noted. The patient was seen by a neurologist, Dr. Burt. No other acute events noted. No fevers, chills, nausea, vomiting. This morning, the patient noted to have spasming of her abdomen, but is alert and oriented. OBJECTIVE DATA: VITAL SIGNS: Blood pressure is 151/79, respirations 20, pulse 79, temperature 97.9. HEENT: Head is normocephalic. NECK: Supple. HEART: Regular rate. LUNGS: Diminished breath sounds at the base. ABDOMEN: Soft, nontender to palpation. Noted twitching of her left-sided abdomen. EXTREMITIES: Negative for clubbing, cyanosis. No edema. DERMATOLOGIC: No rashes. MUSCULOSKELETAL: No joint effusion. NEUROLOGIC: The patient has a right-sided deficit, no change. LABORATORY AND DIAGNOSTIC DATA: From 02/18/2017 was reviewed. MRI of the brain, as stated, shows a large remote right MCA distribution infarct with extensive encephalomalacia. In the deepest portion, there is a small area of acute infarct superimposed. No intracranial hemorrhage noted. No hydrocephalus. ASSESSMENT AND PLAN: 1. Acute cerebrovascular accident (CVA). The patient's MRI shows a small area of acute infarct in the right periventricular white matter. Plan is to continue current medical management with Xarelto. Continue Lipitor. Will discuss with Neurology if the patient should be started on aspirin. Will monitor closely. 2. Myoclonic jerks, abdominal twitching. Etiology is unclear if this is a seizure. Plan is continue Keppra. Will give patient baclofen p.r.n. Will follow up with Neurology for recommendations. 3. Hypertension. Will allow level of permissive hypertension in the setting of acute cerebrovascular accident (CVA). Monitor closely. 4. Syncope. Etiology may have been vasovagal versus recent cerebrovascular accident (CVA). Continue to monitor. Follow up with Cardiology, Neurology. 5. Urinary tract infection (UTI). Continue current antibiotic regimen. 6. Coronary artery disease. Continue medical management. 7. Hypertension. Continue current blood pressure regimen. 8. Continue statin therapy. 9. Anemia. Monitor H and H levels. 10. Dementia. Continue to monitor. 11. Paroxysmal atrial fibrillation. Currently in sinus rhythm. 12. Anxiety, depression. Continue Lexapro. 13. Gastrointestinal and deep venous thrombosis prophylaxis. Continue Xarelto and PPI. Dictated By: Derrick Bloom DO /anders/margarita /Document#: [id number]
--- NOTE | 2017-02-19 12:50 | CONS ---
Date/Time of Note Date/Time of Note DATE: 02/19/17 TIME: 12:47 Assessment/Plan Assessment/Plan Chief Complaint/Hosp Course IMPRESSION: 1. Syncope. -NL EF by echo/RV enlargement with NL RV function/negative trop x 3/negative orthostatics/no sig arrythmias by ecg. Area of acute infarct by MRI 2. Hypertension. 3. Dyslipidemia. 4. History of cerebrovascular accident. 5. Dementia. 6. Possible urinary tract infection. 7. PAF on xarelto 8. H/O cva-acute on chronic by MRI this admit Recc: -Tele -Continue low dose BBACEI -Continue statin -Continue xarelto -Continue abx's and f/u cx data Problems: Consultation Date/Type/Reason Admit Date/Time Feb 18, 2017 at 08:37 Initial Consult Date 02/15/17 Type of Consultation: cardiology Reason for Consultation syncope/AF Referring Provider: FORTUNATO ALBERTO DO Exam/Review of Systems Vital Signs Vitals Vital Signs Date Time Temp Pulse Resp B/P Pulse Ox O2 Delivery O2 Flow Rate FiO2 02/19/17 12:41 75 02/19/17 11:34 98.1 18 127/77 97 02/15/17 21:20 Room Air Intake and Output 02/18/17 02/18/17 02/19/17 15:00 23:00 07:00 Intake Total 720 ml 500 ml Balance 720 ml 500 ml Exam Review of Systems: CONSTITUTIONAL: No fevers, chills. PULMONARY: No sob CARDIOVASCULAR: No chest pain/palpitations GASTROINTESTINAL: No nausea/vomiting. GENITOURINARY: No hematuria/dysuria. MUSCULOSKELETAL: No myagias/arthalgias. PSYCHIATRIC: The patient denies depression. NEUROLOGIC: No weakness Psych: no complaints Head: normocephalic ENMT: mucosa pink and moist Neck: jvd (9 cm water), supple Respiratory: clear to auscultation Cardiovascular: regular rate and rhythm Gastrointestinal: non-tender, soft Musculoskeletal: muscle tone (normal) Extremities: edema (none) Neurological: lethargic Results Result Diagram: 02/18/17 0659 02/18/17 0659 Results 24 hrs Laboratory Tests Test 02/18/17 15:45 Bedside Glucose 106 Medications Medications Current Medications Ondansetron HCl (Zofran Inj) 4 mg Q6H PRN IV NAUSEA AND/OR VOMITING; Start at 20:30 Acetaminophen 650 mg 650 mg Q6H PRN PO PAIN LEVEL 1-3 OR FEVER; Start 02/15/17 at 20:30 Ceftriaxone Sodium (Rocephin) 50 ml @ 100 mls/hr Q24H IVPB Last administered on 02/18/17 17:55; Admin Dose 100 MLS/HR; Start 02/16/17 at 17:00 Atorvastatin Calcium (Lipitor) 80 mg QHS PO Last administered on 02/18/17 21: 13; Admin Dose 80 MG; Start 02/15/17 at 21:00 Docusate Sodium (Colace) 100 mg BID PO Last administered on 02/19/17 09:34; Admin Dose 100 MG; Start 02/15/17 at 21:00 Escitalopram Oxalate (Lexapro) 10 mg QHS PO Last administered on 02/18/17 21: 13; Admin Dose 10 MG; Start 02/15/17 at 21:00 Lisinopril (Zestril) 5 mg DAILY PO Last administered on 02/19/17 09:36; Admin Dose 5 MG; Start 02/16/17 at 09:00 Meclizine HCl (Antivert) 25 mg DAILY PRN PO DIZZINESS; Start 02/15/17 at 20:30 Metoprolol Succinate (Toprol Xl) 12.5 mg BID PO Last administered on 02/19/17 09:36; Admin Dose 12.5 MG; Start 02/15/17 at 21:00 Polyethylene Glycol (Miralax) 17 gm DAILY PO Last administered on 02/19/17 09: 35; Admin Dose 17 GM; Start 02/16/17 at 09:00 Simethicone (Mylicon) 160 mg TID PRN PO STOMACH UPSET Last administered on 02/18 17:55; Admin Dose 160 MG; Start 02/15/17 at 20:30 Pantoprazole (Protonix Tab) 40 mg DAILY@06 PO Last administered on 02/19/17 06 :00; Admin Dose 40 MG; Start 02/16/17 at 06:00 Lactulose (Enulose) 20 gm TID PO Last administered on 02/19/17 09:35; Admin Dose 20 GM; Start 02/15/17 at 21:00 Zolpidem Tartrate (Ambien) 5 mg HS PRN PO INSOMNIA Last administered on 23:21; Admin Dose 5 MG; Start 02/15/17 at 21:00 Clonidine 0.1 mg 0.1 mg Q6H PRN PO ELEVATED SYSTOLIC BP; Start 02/18/17 at 16: 00 Levetiracetam/ Sodium Chloride (Keppra Iv/NS) 105 ml @ 430 mls/hr Q12 IVPB Last administered on 02/19/17 09:34; Admin Dose 430 MLS/HR; Start 02/18/17 at 21:00 Baclofen (Lioresal) 5 mg BID PO Last administered on 02/19/17 10:30; Admin Dose 5 MG; Start 02/19/17 at 10:30 DAVID TESFAYE Feb 19, 2017 12:49
--- NOTE | 2017-02-19 15:08 | CONS ---
Date/Time of Note Date/Time of Note DATE: 02/19/17 TIME: 15:04 Assessment/Plan Assessment/Plan Chief Complaint/Hosp Course SUBJECTIVE DATA: Alert, reading newspaper, afebrile, had episode of severe muscular twitching last night ANTIMICROBIALS: The patient is on ceftriaxone. MICROBIOLOGY: Urine culture growing Klebsiella pneumonia. PHYSICAL EXAMINATION: GENERAL: This is a well-developed, well-nourished, fragile elderly woman, who is alert, in no distress. HEENT: Head atraumatic, normocephalic. Sclerae anicteric. Buccal mucosa pink. NECK: Supple. CHEST: Rise symmetrical. Breath sounds clear. HEART: S1, S2. ABDOMEN: Soft, bowel sounds present. EXTREMITIES: Without cyanosis. ASSESSMENT: 1. Urinary tract infection. 2. Acute Cerebrovascular accident (CVA). 3. Hypertension. 4. Dyslipidemia. 5. Recurrent muscle twitching PLAN: The patient remains stable, neurology on case, continue abx for UTI for couple more days DW pt Problems: Consultation Date/Type/Reason Admit Date/Time Feb 18, 2017 at 08:37 Initial Consult Date 02/17/17 Type of Consultation: id Referring Provider: FORTUNATO ALBERTO DO Exam/Review of Systems Vital Signs Vitals Vital Signs Date Time Temp Pulse Resp B/P Pulse Ox O2 Delivery O2 Flow Rate FiO2 02/19/17 12:41 75 02/19/17 11:34 98.1 18 127/77 97 02/15/17 21:20 Room Air Intake and Output 02/18/17 02/18/17 02/19/17 15:00 23:00 07:00 Intake Total 720 ml 500 ml Balance 720 ml 500 ml Results Result Diagram: 02/18/17 0659 02/18/17 0659 Results 24 hrs Laboratory Tests Test 02/18/17 15:45 Bedside Glucose 106 Medications Medications Current Medications Ondansetron HCl (Zofran Inj) 4 mg Q6H PRN IV NAUSEA AND/OR VOMITING; Start at 20:30 Acetaminophen 650 mg 650 mg Q6H PRN PO PAIN LEVEL 1-3 OR FEVER; Start 02/15/17 at 20:30 Ceftriaxone Sodium (Rocephin) 50 ml @ 100 mls/hr Q24H IVPB Last administered on 02/18/17t 17:55; Admin Dose 100 MLS/HR; Start 02/16/17 at 17:00 Atorvastatin Calcium (Lipitor) 80 mg QHS PO Last administered on 02/18/17 21: 13; Admin Dose 80 MG; Start 02/15/17 at 21:00 Docusate Sodium (Colace) 100 mg BID PO Last administered on 02/19/17 09:34; Admin Dose 100 MG; Start 02/15/17 at 21:00 Escitalopram Oxalate (Lexapro) 10 mg QHS PO Last administered on 02/18/17 21: 13; Admin Dose 10 MG; Start 02/15/17 at 21:00 Lisinopril (Zestril) 5 mg DAILY PO Last administered on 02/19/17 09:36; Admin Dose 5 MG; Start 02/16/17 at 09:00 Meclizine HCl (Antivert) 25 mg DAILY PRN PO DIZZINESS; Start 02/15/17 at 20:30 Metoprolol Succinate (Toprol Xl) 12.5 mg BID PO Last administered on 02/19/17 09:36; Admin Dose 12.5 MG; Start 02/15/17 at 21:00 Polyethylene Glycol (Miralax) 17 gm DAILY PO Last administered on 02/19/17 09: 35; Admin Dose 17 GM; Start 02/16/17 at 09:00 Simethicone (Mylicon) 160 mg TID PRN PO STOMACH UPSET Last administered on 02/18 17:55; Admin Dose 160 MG; Start 02/15/17 at 20:30 Pantoprazole (Protonix Tab) 40 mg DAILY@06 PO Last administered on 02/19/17 06 :00; Admin Dose 40 MG; Start 02/16/17 at 06:00 Lactulose (Enulose) 20 gm TID PO Last administered on 02/19/17 09:35; Admin Dose 20 GM; Start 02/15/17 at 21:00 Zolpidem Tartrate (Ambien) 5 mg HS PRN PO INSOMNIA Last administered on 23:21; Admin Dose 5 MG; Start 02/15/17 at 21:00 Clonidine 0.1 mg 0.1 mg Q6H PRN PO ELEVATED SYSTOLIC BP; Start 02/18/17 at 16: 00 Levetiracetam/ Sodium Chloride (Keppra Iv/NS) 105 ml @ 430 mls/hr Q12 IVPB Last administered on 02/19/17 09:34; Admin Dose 430 MLS/HR; Start 02/18/17 at 21:00 Baclofen (Lioresal) 5 mg BID PO Last administered on 02/19/17 10:30; Admin Dose 5 MG; Start 02/19/17 at 10:30 DWAINE CHIRINOS NP Feb 19, 2017 15:08
--- NOTE | 2017-02-19 16:59 | CONS ---
Date/Time of Note Date/Time of Note DATE: 02/19/17 TIME: 16:47 Consult Date/Type/Reason Admit Date/Time Feb 18, 2017 at 08:37 Initial Consult Date 02/17/17 Type of Consultation: neurology Ordering Provider: FORTUNATO ALBERTO DO Subjective transient left sided tremulousness in AM per pt, abdominal jerks seen by PMD, none now. MRI tiny areas of acute ischemic CVA at the border of old right MCA CVA Objective Vital Signs Date Time Temp Pulse Resp B/P Pulse Ox O2 Delivery O2 Flow Rate FiO2 02/19/17 16:28 65 02/19/17 15:50 98.0 18 120/60 97 02/15/17 21:20 Room Air Intake and Output 02/18/17 02/18/17 02/19/17 15:00 23:00 07:00 Intake Total 720 ml 500 ml Balance 720 ml 500 ml Results/Medications Result Diagram: 02/18/17 0659 02/18/17 0659 Medications Current Medications Ondansetron HCl (Zofran Inj) 4 mg Q6H PRN IV NAUSEA AND/OR VOMITING; Start at 20:30 Acetaminophen 650 mg 650 mg Q6H PRN PO PAIN LEVEL 1-3 OR FEVER; Start 02/15/17 at 20:30 Ceftriaxone Sodium (Rocephin) 50 ml @ 100 mls/hr Q24H IVPB Last administered on 02/18/17 17:55; Admin Dose 100 MLS/HR; Start 02/16/17 at 17:00 Atorvastatin Calcium (Lipitor) 80 mg QHS PO Last administered on 02/18/17 21: 13; Admin Dose 80 MG; Start 02/15/17 at 21:00 Docusate Sodium (Colace) 100 mg BID PO Last administered on 02/19/17 09:34; Admin Dose 100 MG; Start 02/15/17 at 21:00 Escitalopram Oxalate (Lexapro) 10 mg QHS PO Last administered on 02/18/17 21: 13; Admin Dose 10 MG; Start 02/15/17 at 21:00 Lisinopril (Zestril) 5 mg DAILY PO Last administered on 02/19/17 09:36; Admin Dose 5 MG; Start 02/16/17 at 09:00 Meclizine HCl (Antivert) 25 mg DAILY PRN PO DIZZINESS; Start 02/15/17 at 20:30 Metoprolol Succinate (Toprol Xl) 12.5 mg BID PO Last administered on 02/19/17 09:36; Admin Dose 12.5 MG; Start 02/15/17 at 21:00 Polyethylene Glycol (Miralax) 17 gm DAILY PO Last administered on 02/19/17 09: 35; Admin Dose 17 GM; Start 02/16/17 at 09:00 Simethicone (Mylicon) 160 mg TID PRN PO STOMACH UPSET Last administered on 02/18 17:55; Admin Dose 160 MG; Start 02/15/17 at 20:30 Pantoprazole (Protonix Tab) 40 mg DAILY@06 PO Last administered on 02/19/17 06 :00; Admin Dose 40 MG; Start 02/16/17 at 06:00 Lactulose (Enulose) 20 gm TID PO Last administered on 02/19/17 13:00; Admin Dose 20 GM; Start 02/15/17 at 21:00 Zolpidem Tartrate (Ambien) 5 mg HS PRN PO INSOMNIA Last administered on 23:21; Admin Dose 5 MG; Start 02/15/17 at 21:00 Clonidine 0.1 mg 0.1 mg Q6H PRN PO ELEVATED SYSTOLIC BP; Start 02/18/17 at 16: 00 Levetiracetam/ Sodium Chloride (Keppra Iv/NS) 105 ml @ 430 mls/hr Q12 IVPB Last administered on 02/19/17 09:34; Admin Dose 430 MLS/HR; Start 02/18/17 at 21:00 Baclofen (Lioresal) 5 mg BID PO Last administered on 02/19/17 10:30; Admin Dose 5 MG; Start 02/19/17 at 10:30 Assessment/Plan Chief Complaint/Hosp Course Neuroexam: AOx2 , fluent speech, decreased response to visual threat from the left, pupils reactive 4 to 3 mm right, 3 to 2 mm on the left, EOMI, left afcial droop, normal sensations, tongue on midline. Increased tone, spasticity LUE 0/5 , LLE 3-/5 . Sensory intact, to touch. DTR 2 on the right, 3 on the left, left babinski. 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 Acute ischemic CVA in on the border of old right MCA CVA on MRI brain. EEG pending. Continue Keppra 500 mg bid, ativan prn. Cont anticoagulation, I'll add ASA 81 Admitted with 3 days of generalized weakness, improving. UTI. Hx of CVA. Syncopes upon admisiion, per son, chelly, card on case. On anticoagulation, keep normotensive euglycemic, continue statin Problems: GA GRIER MD Feb 19, 2017 16:58
[2017-02-19] MEDS: CEFTRIAXONE 1 GM/50 ML (PMX) 50 ML IVPB SCH (17:00)
--- NOTE | 2017-02-19 17:07 | RADRPT ---
Vent Rate: 68 bpm RR Interval: 0 msec HI Interval: 0 msec QRS Duration: 80 msec QT Interval: 462 msec QTC Interval: 491 msec P-R-T Lillian: 0 - -9 - 7 degrees Atrial fibrillation Prolonged QT Abnormal ECG Electronically Signed By: Baudilio Verdugo [id number]
[2017-02-19] MEDS: RIVAROXABAN 20 MG TABLET PO SCH (18:32)
--- NOTE | 2017-02-19 20:12 | CONS ---
Date/Time of Note Date/Time of Note DATE: 02/19/17 TIME: 20:10 Assessment/Plan Assessment/Plan Chief Complaint/Hosp Course IMPRESSION: ANEMIA MONITOR BLOOD COUNT CLOSELY ACD CVD MRI- Large remote right MCA distribution infarct involving the right frontal and parietal lobes with extensive encephalomalacia and gliosis in the underlying white matter. In the deepest portions of the ounce infarct, there are small areas of acute/recent infarct superimposed on the chronic infarct. Small area of acute/recent infarct involving the right periventricular white matter. NEURO F-UP ON KERA ON ASA AND XARELTO Syncope. cardiology f-up, rule out cardiac arrhythmia. Ruled out acute coronary syndrome. admit patient to telemetry CARD CONSULT follow blood pressures closely with possible need for low- dose beta ted per cardiology resumed Xarelto at this time for possible ventral thromboembolic complications. It is for atrial fibrillation. workup for infarction- Check troponin q.6h x3. fasting lipid panel for general stratification and initiate lipid medications necessary. 2D echo to rule out any decreased EF for significant valvular wall motion abnormalities that may be associated with the syncopal episode. DECONDITIONING START PT Hypertension. Dyslipidemia. History of cerebrovascular accident. Dementia. Possible urinary tract infection. Possible cardiac arrhythmias by medications. Problems: Consultation Date/Type/Reason Admit Date/Time Feb 18, 2017 at 08:37 Initial Consult Date 02/15/17 Type of Consultation: [facility] Referring Provider: FORTUNATO ALBERTO DO 24 HR Interval Summary Free Text/Dictation SEEN BY NEURO BETTER ON [facility] Exam/Review of Systems Vital Signs Vitals Vital Signs Date Time Temp Pulse Resp B/P Pulse Ox O2 Delivery O2 Flow Rate FiO2 02/19/17 16:28 65 02/19/17 15:50 98.0 18 120/60 97 02/15/17 21:20 Room Air Intake and Output 02/18/17 02/18/17 02/19/17 15:00 23:00 07:00 Intake Total 720 ml 500 ml Balance 720 ml 500 ml Exam GENERAL: The patient is alert, awake, in no acute distress. NECK: JVP approximately 8-9 cm of water. LUNGS: Fair air movement throughout. HEART: Regular rate and rhythm. Normal S1, S2, 1/6 systolic murmur, nondisplaced PMI. ABDOMEN: Positive bowel sounds. Soft. EXTREMITIES: No edema. 1+ pulses bilaterally posterior tibia. Results Result Diagram: 02/18/1759 02/18/1759 Medications Medications Current Medications Ondansetron HCl (Zofran Inj) 4 mg Q6H PRN IV NAUSEA AND/OR VOMITING; Start at 20:30 Acetaminophen 650 mg 650 mg Q6H PRN PO PAIN LEVEL 1-3 OR FEVER; Start 02/15/17 at 20:30 Ceftriaxone Sodium (Rocephin) 50 ml @ 100 mls/hr Q24H IVPB Last administered on 02/19/17 17:00; Admin Dose 100 MLS/HR; Start 02/16/17 at 17:00 Atorvastatin Calcium (Lipitor) 80 mg QHS PO Last administered on 02/18/17 21: 13; Admin Dose 80 MG; Start 02/15/17 at 21:00 Docusate Sodium (Colace) 100 mg BID PO Last administered on 02/19/17 09:34; Admin Dose 100 MG; Start 02/15/17 at 21:00 Escitalopram Oxalate (Lexapro) 10 mg QHS PO Last administered on 02/18/17 21: 13; Admin Dose 10 MG; Start 02/15/17 at 21:00 Lisinopril (Zestril) 5 mg DAILY PO Last administered on 02/19/17 09:36; Admin Dose 5 MG; Start 02/16/17 at 09:00 Meclizine HCl (Antivert) 25 mg DAILY PRN PO DIZZINESS; Start 02/15/17 at 20:30 Metoprolol Succinate (Toprol Xl) 12.5 mg BID PO Last administered on 02/19/17 09:36; Admin Dose 12.5 MG; Start 02/15/17 at 21:00 Polyethylene Glycol (Miralax) 17 gm DAILY PO Last administered on 02/19/17 09: 35; Admin Dose 17 GM; Start 02/16/17 at 09:00 Simethicone (Mylicon) 160 mg TID PRN PO STOMACH UPSET Last administered on 02/18 17:55; Admin Dose 160 MG; Start 02/15/17 at 20:30 Pantoprazole (Protonix Tab) 40 mg DAILY@06 PO Last administered on 02/19/17 06 :00; Admin Dose 40 MG; Start 02/16/17 at 06:00 Lactulose (Enulose) 20 gm TID PO Last administered on 02/19/17 13:00; Admin Dose 20 GM; Start 02/15/17 at 21:00 Zolpidem Tartrate (Ambien) 5 mg HS PRN PO INSOMNIA Last administered on 23:21; Admin Dose 5 MG; Start 02/15/17 at 21:00 Clonidine 0.1 mg 0.1 mg Q6H PRN PO ELEVATED SYSTOLIC BP; Start 02/18/17 at 16: 00 Levetiracetam/ Sodium Chloride (Keppra Iv/NS) 105 ml @ 430 mls/hr Q12 IVPB Last administered on 02/19/17 09:34; Admin Dose 430 MLS/HR; Start 02/18/17 at 21:00 Baclofen (Lioresal) 5 mg BID PO Last administered on 02/19/17 10:30; Admin Dose 5 MG; Start 02/19/17 at 10:30 Aspirin (Aspirin) 81 mg DAILY PO ; Start 02/20/17 at 09:00 Procedures Procedures [place] [address] Radiology Main Line: [phone] DIAGNOSTIC IMAGING REPORT Patient: MARIANELA MURILLO : 1935 Age: 82 Sex: F MR #: [id number] DOS: 02/18/17 1822 Ordering MD: TERRA RANGEL MD Location: [facility] [place] Room/Bed: [facility] PROCEDURE: MR Brain without contrast. CLINICAL INDICATION: 82-year-old female with new onset of seizures. TECHNIQUE: An MRI of the brain was performed without contrast utilizing the following sequences: Sagittal T1 weighted, sagittal FLAIR, axial T1, axial FLAIR, axial T2 weighted, axial diffusion weighted, axial ADC mapping. Images were reviewed on a PACS workstation. COMPARISON: CT head 02/18/2017, 02/15/2017 FINDINGS: Diffusion weighted sequences demonstrate subtle areas of diffusion restriction involving the deep portions of the large right middle cerebral artery distribution infarct (axial series image [id number]) as well as the right periventricular region (axial series image 20). There is a prominent area of encephalomalacia involving the right frontal operculum, lateral right frontal lobe, right frontal and parietal lobes. There is no evidence of hemorrhagic conversion. There is no intracranial hemorrhage, extra-axial fluid collection, mass lesion, midline shift or hydrocephalous. There is baseline of moderate prominence of the cerebral sulci, lateral and third ventricles. The basal cisterns are patent. There is severe patchy and confluent periventricular and subcortical white matter T2 / FLAIR signal hyperintensity, with extensive gliosis involving the right cerebral hemisphere in the regions of the chronic right MCA distribution infarct. Normal flow voids are visible the proximal intracranial arteries and dural sinuses, indicating patency. The midline structures are intact. The paranasal sinuses, mastoid air cells and middle ear cavities are normally aerated. The orbits, calvarium and extracranial soft tissues are normal in appearance. IMPRESSION: 1. Large remote right MCA distribution infarct involving the right frontal and parietal lobes with extensive encephalomalacia and gliosis in the underlying white matter. In the deepest portions of the ounce infarct, there are small areas of acute/recent infarct superimposed on the chronic infarct. 2. Small area of acute/recent infarct involving the right periventricular white matter. 3. No intracranial hemorrhage, mass lesion or hydrocephalous. The above findings were discussed with Patient's Nurse Rebeca by telephone on 11:39:10 PM. RPTAT: HGAS .Choco Cox MD, MD Date Time Electronically viewed and signed by .Choco Cox MD, on 02/18/2017 23: 43 .S/ CC: TERRA RANGEL MD, VERA M MD Feb 19, 2017 20:12
[2017-02-19] MEDS: ATORVASTATIN 80 MG TAB PO SCH (21:10)
[2017-02-19] MEDS: ESCITALOPRAM 10 MG TAB PO SCH (21:10)
[2017-02-20] VITALS (10 sets, daily range): BP systolic 89–130; BP diastolic 53–78; PULSE 69–73; RESP 17–20
[2017-02-20] MEDS: GENTAMICIN 0.3% 5 ML OPH BOTH EYES SCH ×6 (01:00→21:07)
[2017-02-20] MEDS: ZOLPIDEM 5 MG TAB PO PRN ×2 (01:30→21:07)
[2017-02-20] MEDS: PANTOPRAZOLE (EC) 40 MG TAB PO SCH (06:00)
[2017-02-20 08:00] LABS: BASOPHIL # 0.1 10^3/ul (0.0-0.1); BASOPHILS % 0.8 % (0.0-2.0); EOSINOPHILS # 0.1 10^3/ul (0.0-0.5); EOSINOPHILS % 1.3 % (0.0-7.0); HEMATOCRIT 37.2 % (37.0-47.0); HEMOGLOBIN 11.9 g/dl (12.0-16.0); LYMPHOCYTES # 2.2 10^3/ul (0.8-2.9); LYMPHOCYTES % 25.6 % (15.0-51.0); MEAN CORPUSCULAR HEMOGLOBIN 28.7 pg (29.0-33.0); MEAN CORPUSCULAR VOLUME 89.9 fl (82.0-101.0); MEAN PLATELET VOLUME 10.2 fl (7.4-10.4); MONOCYTE # 0.5 10^3/ul (0.3-0.9); MONOCYTES % 5.7 % (0.0-11.0); PLATELET COUNT 377 10^3/UL (140-415); RED BLOOD COUNT 4.14 10^6/ul (4.20-5.40); RED CELL DISTRIBUTION WIDTH 14.3 % (11.5-14.5); WHITE BLOOD COUNT 8.4 10^3/ul (4.8-10.8)
[2017-02-20 08:26] LABS: CALCIUM 9.3 mg/dl (8.4-10.2); CREATININE 0.63 mg/dl (0.44-1.00); MAGNESIUM 2.1 mg/dl (1.7-2.5); PHOSPHORUS 3.3 mg/dl (2.5-4.9); POTASSIUM 4.2 mmol/L (3.5-5.1)
[2017-02-20] MEDS: POLYETHYLENE GLYCOL 17 GM PACKET PO SCH (09:00)
[2017-02-20] MEDS: LACTULOSE 30ML CUP PO SCH ×3 (09:00→21:02)
--- NOTE | 2017-02-20 09:28 | PN ---
DATE: 02/20/2017 SUBJECTIVE DATA: The patient is stable this morning. There is no further signs of myoclonic jerks or abdominal twitching. Aspirin was added by Neurology yesterday. No other events noted. OBJECTIVE DATA: VITAL SIGNS: Blood pressure 130/78, respirations 18, pulse 87, and temperature 98.0. HEENT: Head is normocephalic. NECK: Supple. HEART: Regular rate. LUNGS: Diminished breath sounds at the base. ABDOMEN: Soft, nontender to palpation. No guarding. EXTREMITIES: Negative for clubbing, cyanosis. No edema. DERMATOLOGIC: No rashes. MUSCULOSKELETAL: No joint effusion. NEUROLOGIC: No change in exam. MEDICATIONS: Reviewed. LABORATORY AND DIAGNOSTIC DATA: Currently pending. ASSESSMENT AND PLAN: 1. Acute cerebrovascular accident (CVA). The patient's MRI shows small area of acute infarct. The patient is currently stable. Continue current medical management with Xarelto, aspirin, and Lipitor. Follow up with Neurology. 2. Myoclonic jerks and abdominal twitching, improved, etiology is unclear. Continue Keppra and baclofen. 3. Hypertension. Continue current blood pressure regimen. 4. Syncope. Etiology is vasovagal. Continue to monitor. 5. Urinary tract infection (UTI). Continue current antibiotic regimen. 6. Coronary artery disease. Continue medical management. 7. Hypertension. Continue current blood pressure regimen. 8. Dyslipidemia. Continue statin therapy. 9. Anemia. Monitor hemoglobin and hematocrit levels. 10. Dementia. Continue to monitor. 11. Paroxysmal atrial fibrillation. Currently sinus rhythm. 12. Anxiety depression. Continue Lexapro. 13. Sequential compression devices (SCDs) for deep venous thrombosis (DVT) prophylaxis. Continue PPI with Xarelto. DISPOSITION: Anticipate possible transfer to SNF in the next 1 to 2 if the patient remains hemodynamically stable. Dictated By: Derrick Bloom DO /anders/raiza /Document#: [id number]
[2017-02-20] MEDS: ASPIRIN 81 MG TAB PO SCH (10:50)
[2017-02-20] MEDS: DOCUSATE SODIUM 100 MG CAP PO SCH ×2 (10:50→21:01)
[2017-02-20] MEDS: LISINOPRIL 5 MG TAB PO SCH (10:50)
[2017-02-20] MEDS: BACLOFEN 10 MG TAB PO SCH ×2 (10:52→21:02)
[2017-02-20] MEDS: METOPROLOL (XL) 25 MG TAB PO SCH ×2 (10:52→21:00)
[2017-02-20] MEDS: LEVETIRACETAM IV 500 MG in SOD CHLORIDE 0.9% 100 ML IVPB SCH (10:53)
--- NOTE | 2017-02-20 12:47 | CONS ---
Date/Time of Note Date/Time of Note DATE: 02/20/17 TIME: 12:46 Assessment/Plan Assessment/Plan Chief Complaint/Hosp Course IMPRESSION: ANEMIA MONITOR BLOOD COUNT CLOSELY ACD CVD MRI- Large remote right MCA distribution infarct involving the right frontal and parietal lobes with extensive encephalomalacia and gliosis in the underlying white matter. In the deepest portions of the ounce infarct, there are small areas of acute/recent infarct superimposed on the chronic infarct. Small area of acute/recent infarct involving the right periventricular white matter. NEURO F-UP ON KEPPRA ON ASA AND XARELTO SZ per neuro Syncope. cardiology f-up, ruled out cardiac arrhythmia. Ruled out acute coronary syndrome. telemetry CARD f-up follow blood pressures closely with possible need for low- dose beta ted per cardiology resumed Xarelto at this time for possible ventral thromboembolic complications. It is for atrial fibrillation. fasting lipid panel for general stratification and initiate lipid medications necessary. 2D echo to rule out any decreased EF for significant valvular wall motion abnormalities that may be associated with the syncopal episode. DECONDITIONING PT Hypertension. Dyslipidemia. History of cerebrovascular accident. Dementia. Possible urinary tract infection. Possible cardiac arrhythmias by medications. Problems: Consultation Date/Type/Reason Admit Date/Time Feb 18, 2017 at 08:37 Initial Consult Date 02/15/17 Type of Consultation: [facility] Referring Provider: FORTUNATO ALBERTO DO 24 HR Interval Summary Free Text/Dictation ALL NOTED IMPROVING Exam/Review of Systems Vital Signs Vitals Vital Signs Date Time Temp Pulse Resp B/P Pulse Ox O2 Delivery O2 Flow Rate FiO2 02/20/17 12:00 72 02/20/17 08:08 98.0 18 130/78 97 Intake and Output 02/19/17 02/19/17 02/20/17 15:00 23:00 07:00 Intake Total 105 ml 220 ml Balance 105 ml 220 ml Exam GENERAL: The patient is alert, awake, in no acute distress. NECK: JVP approximately 8-9 cm of water. LUNGS: Fair air movement throughout. HEART: Regular rate and rhythm. Normal S1, S2, 1/6 systolic murmur, nondisplaced PMI. ABDOMEN: Positive bowel sounds. Soft. EXTREMITIES: No edema. 1+ pulses bilaterally posterior tibia. Results Result Diagram: 02/20/17 0645 02/20/17 0645 Results 24 hrs Laboratory Tests Test 02/20/17 06:45 White Blood Count 8.4 # Red Blood Count 4.14 L Hemoglobin 11.9 L Hematocrit 37.2 Mean Corpuscular Volume 89.9 Mean Corpuscular Hemoglobin 28.7 L Mean Corpuscular Hemoglobin Concent 32.0 Red Cell Distribution Width 14.3 Platelet Count 377 Mean Platelet Volume 10.2 Neutrophils % 66.0 Lymphocytes % 25.6 Monocytes % 5.7 Eosinophils % 1.3 Basophils % 0.8 Nucleated Red Blood Cells % 0.0 Neutrophils # (Manual) 5.6 Lymphocytes # 2.2 Monocytes # 0.5 Eosinophils # 0.1 Basophils # 0.1 Nucleated Red Blood Cells # 0.0 Sodium Level 142 Potassium Level 4.2 Chloride Level 103 Carbon Dioxide Level 25 Anion Gap 18 H Blood Urea Nitrogen 13 Creatinine 0.63 Glucose Level 87 Calcium Level 9.3 Phosphorus Level 3.3 Magnesium Level 2.1 Medications Medications Current Medications Ondansetron HCl (Zofran Inj) 4 mg Q6H PRN IV NAUSEA AND/OR VOMITING; Start at 20:30 Acetaminophen 650 mg 650 mg Q6H PRN PO PAIN LEVEL 1-3 OR FEVER; Start 02/15/17 at 20:30 Ceftriaxone Sodium (Rocephin) 50 ml @ 100 mls/hr Q24H IVPB Last administered on 02/19/17 17:00; Admin Dose 100 MLS/HR; Start 02/16/17 at 17:00 Atorvastatin Calcium (Lipitor) 80 mg QHS PO Last administered on 02/19/17 21: 10; Admin Dose 80 MG; Start 02/15/17 at 21:00 Docusate Sodium (Colace) 100 mg BID PO Last administered on 02/20/17 10:50; Admin Dose 100 MG; Start 02/15/17 at 21:00 Escitalopram Oxalate (Lexapro) 10 mg QHS PO Last administered on 02/19/17 21: 10; Admin Dose 10 MG; Start 02/15/17 at 21:00 Lisinopril (Zestril) 5 mg DAILY PO Last administered on 02/20/17 10:50; Admin Dose 5 MG; Start 02/16/17 at 09:00 Meclizine HCl (Antivert) 25 mg DAILY PRN PO DIZZINESS; Start 02/15/17 at 20:30 Metoprolol Succinate (Toprol Xl) 12.5 mg BID PO Last administered on 02/20/17 10:52; Admin Dose 12.5 MG; Start 02/15/17 at 21:00 Polyethylene Glycol (Miralax) 17 gm DAILY PO Last administered on 02/19/17 09: 35; Admin Dose 17 GM; Start 02/16/17 at 09:00 Simethicone (Mylicon) 160 mg TID PRN PO STOMACH UPSET Last administered on 02/18 17:55; Admin Dose 160 MG; Start 02/15/17 at 20:30 Pantoprazole (Protonix Tab) 40 mg DAILY@06 PO Last administered on 02/20/17 06 :00; Admin Dose 40 MG; Start 02/16/17 at 06:00 Lactulose (Enulose) 20 gm TID PO Last administered on 02/19/17 13:00; Admin Dose 20 GM; Start 02/15/17 at 21:00 Zolpidem Tartrate (Ambien) 5 mg HS PRN PO INSOMNIA Last administered on 01:30; Admin Dose 5 MG; Start 02/15/17 at 21:00 Clonidine 0.1 mg 0.1 mg Q6H PRN PO ELEVATED SYSTOLIC BP; Start 02/18/17 at 16: 00 Levetiracetam/ Sodium Chloride (Keppra Iv/NS) 105 ml @ 430 mls/hr Q12 IVPB Last administered on 02/20/17 10:53; Admin Dose 430 MLS/HR; Start 02/18/17 at 21:00 Baclofen (Lioresal) 5 mg BID PO Last administered on 02/20/17 10:52; Admin Dose 5 MG; Start 02/19/17 at 10:30 Aspirin (Aspirin) 81 mg DAILY PO Last administered on 02/20/17 10:50; Admin Dose 81 MG; Start 02/20/17 at 09:00 TERRA RANGEL MD Feb 20, 2017 12:47
--- NOTE | 2017-02-20 13:08 | CONS ---
Date/Time of Note Date/Time of Note DATE: 02/20/17 TIME: 13:06 Assessment/Plan Assessment/Plan Additional Assessment/Plan 1. Syncope. -NL EF by echo/RV enlargement with NL RV function/negative trop x 3/negative orthostatics/no sig arrythmias by ecg. Area of acute infarct by MRI - neuro follows 2. Hypertension - well Rx, con't med rx. 3. Dyslipidemia. 4. History of cerebrovascular accident- stable, neuro follows 5. Dementia. 6. Possible urinary tract infection- on anti-bx 7. PAF on xarelto - no bleeding 8. H/O cva-acute on chronic by MRI this admit Consultation Date/Type/Reason Admit Date/Time Feb 18, 2017 at 08:37 Initial Consult Date 02/15/17 Type of Consultation: [facility] Referring Provider: FORTUNATO ALBERTO DO 24 HR Interval Summary Free Text/Dictation NO acute change - no significant ectopy on tele ROS: No fever, no chills, no nausea, no vomiting, no diarrhea/constipation No recent weight changes No chest pain, no PND, no orthopnea No dizziness, blurred vision No thirst, no heat or cold intolerance Exam/Review of Systems Vital Signs Vitals Vital Signs Date Time Temp Pulse Resp B/P Pulse Ox O2 Delivery O2 Flow Rate FiO2 02/20/17 12:00 72 02/20/17 08:08 98.0 18 130/78 97 Intake and Output 02/19/17 02/19/17 02/20/17 15:00 23:00 07:00 Intake Total 105 ml 220 ml Balance 105 ml 220 ml Exam General: WN/WD/NAD, AOx 1-2 HEENT: Unicetric/atraumatic/EOMI (follows some commands) NECK: JVD elevated, no thyromegaly Lymph: no lymphadenopathy HEART: regular with no S3, II/ systolic murmur at apex LUNGS: Coarse sounds ABD: soft, NT, ND, +BS : Intact Neuro: non focal SKIN: chronic changes EXT: trace edema Results Result Diagram: 02/20/17 0645 02/20/17 0645 Results 24 hrs Laboratory Tests Test 02/20/17 06:45 White Blood Count 8.4 # Red Blood Count 4.14 L Hemoglobin 11.9 L Hematocrit 37.2 Mean Corpuscular Volume 89.9 Mean Corpuscular Hemoglobin 28.7 L Mean Corpuscular Hemoglobin Concent 32.0 Red Cell Distribution Width 14.3 Platelet Count 377 Mean Platelet Volume 10.2 Neutrophils % 66.0 Lymphocytes % 25.6 Monocytes % 5.7 Eosinophils % 1.3 Basophils % 0.8 Nucleated Red Blood Cells % 0.0 Neutrophils # (Manual) 5.6 Lymphocytes # 2.2 Monocytes # 0.5 Eosinophils # 0.1 Basophils # 0.1 Nucleated Red Blood Cells # 0.0 Sodium Level 142 Potassium Level 4.2 Chloride Level 103 Carbon Dioxide Level 25 Anion Gap 18 H Blood Urea Nitrogen 13 Creatinine 0.63 Glucose Level 87 Calcium Level 9.3 Phosphorus Level 3.3 Magnesium Level 2.1 Medications Medications Current Medications Ondansetron HCl (Zofran Inj) 4 mg Q6H PRN IV NAUSEA AND/OR VOMITING; Start at 20:30 Acetaminophen 650 mg 650 mg Q6H PRN PO PAIN LEVEL 1-3 OR FEVER; Start 02/15/17 at 20:30 Ceftriaxone Sodium (Rocephin) 50 ml @ 100 mls/hr Q24H IVPB Last administered on 02/19/17 17:00; Admin Dose 100 MLS/HR; Start 02/16/17 at 17:00 Atorvastatin Calcium (Lipitor) 80 mg QHS PO Last administered on 02/19/17 21: 10; Admin Dose 80 MG; Start 02/15/17 at 21:00 Docusate Sodium (Colace) 100 mg BID PO Last administered on 02/20/17 10:50; Admin Dose 100 MG; Start 02/15/17 at 21:00 Escitalopram Oxalate (Lexapro) 10 mg QHS PO Last administered on 02/19/17 21: 10; Admin Dose 10 MG; Start 02/15/17 at 21:00 Lisinopril (Zestril) 5 mg DAILY PO Last administered on 02/20/17 10:50; Admin Dose 5 MG; Start 02/16/17 at 09:00 Meclizine HCl (Antivert) 25 mg DAILY PRN PO DIZZINESS; Start 02/15/17 at 20:30 Metoprolol Succinate (Toprol Xl) 12.5 mg BID PO Last administered on 02/20/17 10:52; Admin Dose 12.5 MG; Start 02/15/17 at 21:00 Polyethylene Glycol (Miralax) 17 gm DAILY PO Last administered on 02/19/17 09: 35; Admin Dose 17 GM; Start 02/16/17 at 09:00 Simethicone (Mylicon) 160 mg TID PRN PO STOMACH UPSET Last administered on 02/18 17:55; Admin Dose 160 MG; Start 02/15/17 at 20:30 Pantoprazole (Protonix Tab) 40 mg DAILY@06 PO Last administered on 02/20/17 06 :00; Admin Dose 40 MG; Start 02/16/17 at 06:00 Lactulose (Enulose) 20 gm TID PO Last administered on 02/19/17 13:00; Admin Dose 20 GM; Start 02/15/17 at 21:00 Zolpidem Tartrate (Ambien) 5 mg HS PRN PO INSOMNIA Last administered on 01:30; Admin Dose 5 MG; Start 02/15/17 at 21:00 Clonidine 0.1 mg 0.1 mg Q6H PRN PO ELEVATED SYSTOLIC BP; Start 02/18/17 at 16: 00 Levetiracetam/ Sodium Chloride (Keppra Iv/NS) 105 ml @ 430 mls/hr Q12 IVPB Last administered on 02/20/17 10:53; Admin Dose 430 MLS/HR; Start 02/18/17 at 21:00 Baclofen (Lioresal) 5 mg BID PO Last administered on 02/20/17 10:52; Admin Dose 5 MG; Start 02/19/17 at 10:30 Aspirin (Aspirin) 81 mg DAILY PO Last administered on 02/20/17 10:50; Admin Dose 81 MG; Start 02/20/17 at 09:00 NAGI NARANJO MD Feb 20, 2017 13:08
--- NOTE | 2017-02-20 15:27 | CONS ---
Date/Time of Note Date/Time of Note DATE: 02/20/17 TIME: 15:25 Consult Date/Type/Reason Admit Date/Time Feb 18, 2017 at 08:37 Initial Consult Date 02/17/17 Type of Consultation: neurology Ordering Provider: FORTUNATO ALBERTO DO Subjective no acute events, no more seizures Objective Vital Signs Date Time Temp Pulse Resp B/P Pulse Ox O2 Delivery O2 Flow Rate FiO2 02/20/17 12:00 98.0 85 18 102/53 98 Intake and Output 02/19/17 02/19/17 02/20/17 15:00 23:00 07:00 Intake Total 105 ml 220 ml Balance 105 ml 220 ml Results/Medications Result Diagram: 02/20/17 0645 02/20/17 0645 Results 24 hrs Laboratory Tests Test 02/20/17 06:45 White Blood Count 8.4 # Red Blood Count 4.14 L Hemoglobin 11.9 L Hematocrit 37.2 Mean Corpuscular Volume 89.9 Mean Corpuscular Hemoglobin 28.7 L Mean Corpuscular Hemoglobin Concent 32.0 Red Cell Distribution Width 14.3 Platelet Count 377 Mean Platelet Volume 10.2 Neutrophils % 66.0 Lymphocytes % 25.6 Monocytes % 5.7 Eosinophils % 1.3 Basophils % 0.8 Nucleated Red Blood Cells % 0.0 Neutrophils # (Manual) 5.6 Lymphocytes # 2.2 Monocytes # 0.5 Eosinophils # 0.1 Basophils # 0.1 Nucleated Red Blood Cells # 0.0 Sodium Level 142 Potassium Level 4.2 Chloride Level 103 Carbon Dioxide Level 25 Anion Gap 18 H Blood Urea Nitrogen 13 Creatinine 0.63 Glucose Level 87 Calcium Level 9.3 Phosphorus Level 3.3 Magnesium Level 2.1 Medications Current Medications Ondansetron HCl (Zofran Inj) 4 mg Q6H PRN IV NAUSEA AND/OR VOMITING; Start at 20:30 Acetaminophen 650 mg 650 mg Q6H PRN PO PAIN LEVEL 1-3 OR FEVER; Start 02/15/17 at 20:30 Ceftriaxone Sodium (Rocephin) 50 ml @ 100 mls/hr Q24H IVPB Last administered on 02/19/17 17:00; Admin Dose 100 MLS/HR; Start 02/16/17 at 17:00 Atorvastatin Calcium (Lipitor) 80 mg QHS PO Last administered on 02/19/17 21: 10; Admin Dose 80 MG; Start 02/15/17 at 21:00 Docusate Sodium (Colace) 100 mg BID PO Last administered on 02/20/17 10:50; Admin Dose 100 MG; Start 02/15/17 at 21:00 Escitalopram Oxalate (Lexapro) 10 mg QHS PO Last administered on 02/19/17 21: 10; Admin Dose 10 MG; Start 02/15/17 at 21:00 Lisinopril (Zestril) 5 mg DAILY PO Last administered on 02/20/17 10:50; Admin Dose 5 MG; Start 02/16/17 at 09:00 Meclizine HCl (Antivert) 25 mg DAILY PRN PO DIZZINESS; Start 02/15/17 at 20:30 Metoprolol Succinate (Toprol Xl) 12.5 mg BID PO Last administered on 02/20/17 10:52; Admin Dose 12.5 MG; Start 02/15/17 at 21:00 Polyethylene Glycol (Miralax) 17 gm DAILY PO Last administered on 02/19/17 09: 35; Admin Dose 17 GM; Start 02/16/17 at 09:00 Simethicone (Mylicon) 160 mg TID PRN PO STOMACH UPSET Last administered on 02/18 17:55; Admin Dose 160 MG; Start 02/15/17 at 20:30 Pantoprazole (Protonix Tab) 40 mg DAILY@06 PO Last administered on 02/20/17 06 :00; Admin Dose 40 MG; Start 02/16/17 at 06:00 Lactulose (Enulose) 20 gm TID PO Last administered on 02/19/17 13:00; Admin Dose 20 GM; Start 02/15/17 at 21:00 Zolpidem Tartrate (Ambien) 5 mg HS PRN PO INSOMNIA Last administered on 01:30; Admin Dose 5 MG; Start 02/15/17 at 21:00 Clonidine 0.1 mg 0.1 mg Q6H PRN PO ELEVATED SYSTOLIC BP; Start 02/18/17 at 16: 00 Levetiracetam/ Sodium Chloride (Keppra Iv/NS) 105 ml @ 430 mls/hr Q12 IVPB Last administered on 02/20/17 10:53; Admin Dose 430 MLS/HR; Start 02/18/17 at 21:00 Baclofen (Lioresal) 5 mg BID PO Last administered on 02/20/17 10:52; Admin Dose 5 MG; Start 02/19/17 at 10:30 Aspirin (Aspirin) 81 mg DAILY PO Last administered on 02/20/17 10:50; Admin Dose 81 MG; Start 02/20/17 at 09:00 Assessment/Plan Chief Complaint/Hosp Course Neuroexam: AOx2 , fluent speech, decreased response to visual threat from the left, pupils reactive 4 to 3 mm right, 3 to 2 mm on the left, EOMI, left facial droop, normal sensations, tongue on midline. Increased tone, spasticity LUE 0/5 , LLE 3/5 . Sensory intact, to touch. DTR 2 on the right, 3 on the left, left babinski. 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 Acute ischemic CVA in on the border of old right MCA CVA on MRI brain. EEG pending. Continue Keppra 500 mg bid, ativan prn. Cont anticoagulation , I'll add ASA 81 Admitted with 3 days of generalized weakness, improving. UTI. Hx of CVA. Syncopes upon admisiion, per son, chelly, card on case. On anticoagulation, keep normotensive euglycemic, continue statin Problems: GA GRIER MD Feb 20, 2017 15:27
--- NOTE | 2017-02-20 18:11 | CONS ---
Date/Time of Note Date/Time of Note DATE: 02/20/17 TIME: 18:05 Assessment/Plan Assessment/Plan Chief Complaint/Hosp Course ID PROGRESS NOTE CURRENT ABX: Ceftriaxone #5 24H INTERVAL SUMMARY * Awake, alert, responsive, tells me she feels better, LUEXT hemiparesis, VSS, NAD, no fevers * MICROBIOLOGY: Urine culture growing Klebsiella pneumonia. BCx (-) * Chart reviewed EXAM GNE: 82 yo F A/A/responsive, VSS HEENT: Unremarkable NECK: Supple CVS: RRR, S1 and S2 CHEST: Equal chest rise bilaterally without dyspnea ABD: Soft, NT, + BS EXT: No c/c/e, LUEXT paresis ID ASSESSMENT 82 yo F admit with: 1. s/p Acute Cerebrovascular accident (CVA) w/left sided hemiparesis 2. GNR Urinary tract infection-> Probable neurogenic bladder w/retention 3. Seizure activity -> (+)Muscle twitching, on Keppra 4. Hypertension. 5. Dyslipidemia. (-) MRSA Nares CURRENT ABX: Ceftriaxone #5 ID RECOMMENDATIONS 1. Continue Ceftriaxone total 7 days 2. Aspiration precautions . Problems: Consultation Date/Type/Reason Admit Date/Time Feb 18, 2017 at 08:37 Initial Consult Date 02/17/17 Type of Consultation: ID Referring Provider: FORTUNATO ALBERTO DO Exam/Review of Systems Vital Signs Vitals Vital Signs Date Time Temp Pulse Resp B/P Pulse Ox O2 Delivery O2 Flow Rate FiO2 02/20/17 16:00 69 02/20/17 15:50 98.1 17 96/56 94 Intake and Output 02/19/17 02/19/17 02/20/17 15:00 23:00 07:00 Intake Total 105 ml 220 ml Balance 105 ml 220 ml Results Result Diagram: 02/20/17 0645 02/20/17 0645 Results 24 hrs Laboratory Tests Test 02/20/17 06:45 White Blood Count 8.4 # Red Blood Count 4.14 L Hemoglobin 11.9 L Hematocrit 37.2 Mean Corpuscular Volume 89.9 Mean Corpuscular Hemoglobin 28.7 L Mean Corpuscular Hemoglobin Concent 32.0 Red Cell Distribution Width 14.3 Platelet Count 377 Mean Platelet Volume 10.2 Neutrophils % 66.0 Lymphocytes % 25.6 Monocytes % 5.7 Eosinophils % 1.3 Basophils % 0.8 Nucleated Red Blood Cells % 0.0 Neutrophils # (Manual) 5.6 Lymphocytes # 2.2 Monocytes # 0.5 Eosinophils # 0.1 Basophils # 0.1 Nucleated Red Blood Cells # 0.0 Sodium Level 142 Potassium Level 4.2 Chloride Level 103 Carbon Dioxide Level 25 Anion Gap 18 H Blood Urea Nitrogen 13 Creatinine 0.63 Glucose Level 87 Calcium Level 9.3 Phosphorus Level 3.3 Magnesium Level 2.1 Medications Medications Current Medications Ondansetron HCl (Zofran Inj) 4 mg Q6H PRN IV NAUSEA AND/OR VOMITING; Start at 20:30 Acetaminophen 650 mg 650 mg Q6H PRN PO PAIN LEVEL 1-3 OR FEVER; Start 02/15/17 at 20:30 Ceftriaxone Sodium (Rocephin) 50 ml @ 100 mls/hr Q24H IVPB Last administered on 02/19/17 17:00; Admin Dose 100 MLS/HR; Start 02/16/17 at 17:00 Atorvastatin Calcium (Lipitor) 80 mg QHS PO Last administered on 02/19/17 21: 10; Admin Dose 80 MG; Start 02/15/17 at 21:00 Docusate Sodium (Colace) 100 mg BID PO Last administered on 02/20/17 10:50; Admin Dose 100 MG; Start 02/15/17 at 21:00 Escitalopram Oxalate (Lexapro) 10 mg QHS PO Last administered on 02/19/17 21: 10; Admin Dose 10 MG; Start 02/15/17 at 21:00 Lisinopril (Zestril) 5 mg DAILY PO Last administered on 02/20/17 10:50; Admin Dose 5 MG; Start 02/16/17 at 09:00 Meclizine HCl (Antivert) 25 mg DAILY PRN PO DIZZINESS; Start 02/15/17 at 20:30 Metoprolol Succinate (Toprol Xl) 12.5 mg BID PO Last administered on 02/20/17 10:52; Admin Dose 12.5 MG; Start 02/15/17 at 21:00 Polyethylene Glycol (Miralax) 17 gm DAILY PO Last administered on 02/19/17 09: 35; Admin Dose 17 GM; Start 02/16/17 at 09:00 Simethicone (Mylicon) 160 mg TID PRN PO STOMACH UPSET Last administered on 02/18 17:55; Admin Dose 160 MG; Start 02/15/17 at 20:30 Pantoprazole (Protonix Tab) 40 mg DAILY@06 PO Last administered on 02/20/17 06 :00; Admin Dose 40 MG; Start 02/16/17 at 06:00 Lactulose (Enulose) 20 gm TID PO Last administered on 02/19/17 13:00; Admin Dose 20 GM; Start 02/15/17 at 21:00 Zolpidem Tartrate (Ambien) 5 mg HS PRN PO INSOMNIA Last administered on 01:30; Admin Dose 5 MG; Start 02/15/17 at 21:00 Clonidine (Catapres) 0.1 mg Q6H PRN PO ELEVATED SYSTOLIC BP; Start 02/18/17 at 16:00 Baclofen (Lioresal) 5 mg BID PO Last administered on 02/20/17 10:52; Admin Dose 5 MG; Start 02/19/17 at 10:30 Aspirin (Aspirin) 81 mg DAILY PO Last administered on 02/20/17 10:50; Admin Dose 81 MG; Start 02/20/17 at 09:00 Levetiracetam (Keppra) 500 mg BID PO ; Start 02/20/17 at 21:00 GONZALES AVELAR NP Feb 20, 2017 18:11
[2017-02-20] MEDS: CEFTRIAXONE 1 GM/50 ML (PMX) 50 ML IVPB SCH (18:32)
[2017-02-20] MEDS: RIVAROXABAN 20 MG TABLET PO SCH (18:32)
[2017-02-20] MEDS: ESCITALOPRAM 10 MG TAB PO SCH (21:01)
[2017-02-20] MEDS: ATORVASTATIN 80 MG TAB PO SCH (21:01)
[2017-02-20] MEDS: LEVETIRACETAM 500 MG TAB PO SCH (21:01)
[2017-02-21] VITALS (13 sets, daily range): BP systolic 103–128; BP diastolic 55–88; PULSE 61–79; RESP 18–20
[2017-02-21] MEDS: GENTAMICIN 0.3% 5 ML OPH BOTH EYES SCH ×6 (02:05→21:55)
[2017-02-21] MEDS: PANTOPRAZOLE (EC) 40 MG TAB PO SCH (05:24)
[2017-02-21] MEDS: POLYETHYLENE GLYCOL 17 GM PACKET PO SCH (09:00)
[2017-02-21] MEDS: LACTULOSE 30ML CUP PO SCH ×3 (09:00→21:53)
[2017-02-21] MEDS: ASPIRIN 81 MG TAB PO SCH (09:21)
[2017-02-21] MEDS: LEVETIRACETAM 500 MG TAB PO SCH ×3 (09:21→21:54)
[2017-02-21] MEDS: BACLOFEN 10 MG TAB PO SCH (09:21)
[2017-02-21] MEDS: DOCUSATE SODIUM 100 MG CAP PO SCH ×2 (09:22→21:54)
[2017-02-21] MEDS: METOPROLOL (XL) 25 MG TAB PO SCH ×2 (09:22→21:57)
[2017-02-21] MEDS: LISINOPRIL 5 MG TAB PO SCH (09:22)
--- NOTE | 2017-02-21 10:18 | CONS ---
Date/Time of Note Date/Time of Note DATE: 02/21/17 TIME: 10:16 Assessment/Plan Assessment/Plan Additional Assessment/Plan 1. Syncope. -NL EF by echo/RV enlargement with NL RV function/negative trop x 3/negative orthostatics/no sig arrythmias by ecg. Area of acute infarct by MRI - neuro follows - NO SIGNIFICANT ECTOPY ON TELE 2. Hypertension - well Rx, con't med rx. 3. Dyslipidemia- Rx as needed 4. History of cerebrovascular accident- stable, neuro follows - new CVA noted 5. Dementia. 6. Possible urinary tract infection- on anti-bx - treated 7. PAF on xarelto - no bleeding 8. H/O cva-acute on chronic by MRI this admit Consultation Date/Type/Reason Admit Date/Time Feb 18, 2017 at 08:37 Initial Consult Date 02/15/17 Type of Consultation: ID Referring Provider: FORTUNATO ALBERTO DO 24 HR Interval Summary Free Text/Dictation NO acute events - no evidence of tachy-rocío arrhythmia - will monitor for now ROS: No fever, no chills, no nausea, no vomiting, no diarrhea/constipation No recent weight changes No chest pain, no PND, no orthopnea No dizziness, blurred vision No thirst, no heat or cold intolerance (per nurse) Exam/Review of Systems Vital Signs Vitals Vital Signs Date Time Temp Pulse Resp B/P Pulse Ox O2 Delivery O2 Flow Rate FiO2 02/21/17 08:10 98.4 58 18 109/88 96 Intake and Output 02/20/17 02/20/17 02/21/17 15:00 23:00 07:00 Intake Total 305 ml 60 ml Balance 305 ml 60 ml Exam General: WN/WD/NAD, AOx 1-2 confused HEENT: Unicetric/atraumatic/EOMI (follow some commands) NECK: JVD elevated, no thyromegaly Lymph: no lymphadenopathy HEART: Irregular with no S3, II/ systolic murmur at apex LUNGS: Coarse sounds ABD: soft, NT, ND, +BS : Intact Neuro: s/p CVA SKIN: chronic changes EXT: trace edema Results Result Diagram: 02/20/17 0645 02/20/1745 Medications Medications Current Medications Ondansetron HCl (Zofran Inj) 4 mg Q6H PRN IV NAUSEA AND/OR VOMITING; Start 8/ 21/17 at 20:30 Acetaminophen 650 mg 650 mg Q6H PRN PO PAIN LEVEL 1-3 OR FEVER; Start 02/15/17 at 20:30 Ceftriaxone Sodium (Rocephin) 50 ml @ 100 mls/hr Q24H IVPB Last administered on 02/20/17 18:32; Admin Dose 100 MLS/HR; Start 02/16/17 at 17:00 Atorvastatin Calcium (Lipitor) 80 mg QHS PO Last administered on 02/20/17 21: 01; Admin Dose 80 MG; Start 02/15/17 at 21:00 Docusate Sodium (Colace) 100 mg BID PO Last administered on 02/21/17 09:22; Admin Dose 100 MG; Start 02/15/17 at 21:00 Escitalopram Oxalate (Lexapro) 10 mg QHS PO Last administered on 02/20/17 21: 01; Admin Dose 10 MG; Start 02/15/17 at 21:00 Lisinopril (Zestril) 5 mg DAILY PO Last administered on 02/21/17 09:22; Admin Dose 5 MG; Start 02/16/17 at 09:00 Meclizine HCl (Antivert) 25 mg DAILY PRN PO DIZZINESS; Start 02/15/17 at 20:30 Metoprolol Succinate (Toprol Xl) 12.5 mg BID PO Last administered on 02/21/17 09:22; Admin Dose 12.5 MG; Start 02/15/17 at 21:00 Polyethylene Glycol (Miralax) 17 gm DAILY PO Last administered on 02/19/17 09: 35; Admin Dose 17 GM; Start 02/16/17 at 09:00 Simethicone (Mylicon) 160 mg TID PRN PO STOMACH UPSET Last administered on 02/18 17:55; Admin Dose 160 MG; Start 02/15/17 at 20:30 Pantoprazole (Protonix Tab) 40 mg DAILY@06 PO Last administered on 02/21/17 05 :24; Admin Dose 40 MG; Start 02/16/17 at 06:00 Lactulose (Enulose) 20 gm TID PO Last administered on 02/20/17 21:02; Admin Dose 20 GM; Start 02/15/17 at 21:00 Zolpidem Tartrate (Ambien) 5 mg HS PRN PO INSOMNIA Last administered on 21:07; Admin Dose 5 MG; Start 02/15/17 at 21:00 Clonidine (Catapres) 0.1 mg Q6H PRN PO ELEVATED SYSTOLIC BP; Start 02/18/17 at 16:00 Baclofen (Lioresal) 5 mg BID PO Last administered on 02/21/17 09:21; Admin Dose 5 MG; Start 02/19/17 at 10:30 Aspirin (Aspirin) 81 mg DAILY PO Last administered on 02/21/17 09:21; Admin Dose 81 MG; Start 02/20/17 at 09:00 Levetiracetam (Keppra) 500 mg BID PO Last administered on 02/21/17 09:21; Admin Dose 500 MG; Start 02/20/17 at 21:00 NAGI NARANJO MD Feb 21, 2017 10:18
--- NOTE | 2017-02-21 11:27 | PN ---
DATE: 02/21/2017 SUBJECTIVE DATA: The patient is stable. No fevers, chills, nausea, or vomiting. No shortness of breath. OBJECTIVE DATA: VITAL SIGNS: Blood pressure 128/67, respirations 18, pulse 87, and temperature 98.2. HEENT: Head is normocephalic. NECK: Supple. HEART: Regular rate. LUNGS: Diminished breath sounds at the base. ABDOMEN: Soft, nontender to palpation. No guarding. EXTREMITIES: Negative for clubbing, cyanosis. No edema. DERMATOLOGIC: No rashes. MUSCULOSKELETAL: No joint effusion. NEUROLOGIC: Unchanged exam. MEDICATIONS: Reviewed. LABORATORY AND DIAGNOSTIC DATA: Reviewed. ASSESSMENT AND PLAN: 1. Acute cerebrovascular accident (CVA). Patient's MRI shows small area of acute infarct. Continue current medical management. Continue Xarelto, aspirin, and Lipitor. 2. Myoclonic jerks, abdominal twitching resolved. Continue Keppra and baclofen, EEG is pending. 3. Hypertension. Continue current blood pressure regimen. 4. Status post syncope. 5. Urinary tract infection (UTI). The patient is completing antibiotic course. 6. Coronary artery disease. Continue medical management. 7. Hypertension. Continue current blood pressure regimen. 8. Dyslipidemia. Continue statin therapy. 9. Anemia. Monitor hemoglobin and hematocrit levels. 10. Dementia. Continue to monitor. 11. Paroxysmal atrial fibrillation. Currently sinus rhythm. 12. Anxiety and depression. Continue Lexapro. 13. Gastrointestinal (GI) and deep venous thrombosis (DVT) prophylaxis. Continue proton pump inhibitor (PPI), sequential leg squeezers, and Xarelto. Dictated By: Derrick Bloom DO /anders/raiza /Document#: [id number]
[2017-02-21] MEDS: clonAZEPAM 0.5 MG TAB PO SCH ×2 (12:00→21:53)
--- NOTE | 2017-02-21 12:00 | CONS ---
Date/Time of Note Date/Time of Note DATE: 02/21/17 TIME: 11:57 Consult Date/Type/Reason Admit Date/Time Feb 18, 2017 at 08:37 Initial Consult Date 02/17/17 Type of Consultation: neurology Ordering Provider: FORTUNATO ALBERTO DO Subjective Jerk like movements of the LLE, q1-2 sec since AM Objective Vital Signs Date Time Temp Pulse Resp B/P Pulse Ox O2 Delivery O2 Flow Rate FiO2 02/21/17 08:10 98.4 58 18 109/88 96 Intake and Output 02/20/17 02/20/17 02/21/17 15:00 23:00 07:00 Intake Total 305 ml 60 ml Balance 305 ml 60 ml Results/Medications Result Diagram: 02/20/17 0645 02/20/17 0645 Medications Current Medications Ondansetron HCl (Zofran Inj) 4 mg Q6H PRN IV NAUSEA AND/OR VOMITING; Start at 20:30 Acetaminophen 650 mg 650 mg Q6H PRN PO PAIN LEVEL 1-3 OR FEVER; Start 02/15/17 at 20:30 Ceftriaxone Sodium (Rocephin) 50 ml @ 100 mls/hr Q24H IVPB Last administered on 02/20/17 18:32; Admin Dose 100 MLS/HR; Start 02/16/17 at 17:00 Atorvastatin Calcium (Lipitor) 80 mg QHS PO Last administered on 02/20/17 21: 01; Admin Dose 80 MG; Start 02/15/17 at 21:00 Docusate Sodium (Colace) 100 mg BID PO Last administered on 02/21/17 09:22; Admin Dose 100 MG; Start 02/15/17 at 21:00 Escitalopram Oxalate (Lexapro) 10 mg QHS PO Last administered on 02/20/17 21: 01; Admin Dose 10 MG; Start 02/15/17 at 21:00 Lisinopril (Zestril) 5 mg DAILY PO Last administered on 02/21/17 09:22; Admin Dose 5 MG; Start 02/16/17 at 09:00 Meclizine HCl (Antivert) 25 mg DAILY PRN PO DIZZINESS; Start 02/15/17 at 20:30 Metoprolol Succinate (Toprol Xl) 12.5 mg BID PO Last administered on 02/21/17 09:22; Admin Dose 12.5 MG; Start 02/15/17 at 21:00 Polyethylene Glycol (Miralax) 17 gm DAILY PO Last administered on 02/19/17 09: 35; Admin Dose 17 GM; Start 02/16/17 at 09:00 Simethicone (Mylicon) 160 mg TID PRN PO STOMACH UPSET Last administered on 02/18 17:55; Admin Dose 160 MG; Start 02/15/17 at 20:30 Pantoprazole (Protonix Tab) 40 mg DAILY@06 PO Last administered on 02/21/17 05 :24; Admin Dose 40 MG; Start 02/16/17 at 06:00 Lactulose (Enulose) 20 gm TID PO Last administered on 02/20/17 21:02; Admin Dose 20 GM; Start 02/15/17 at 21:00 Zolpidem Tartrate (Ambien) 5 mg HS PRN PO INSOMNIA Last administered on 21:07; Admin Dose 5 MG; Start 02/15/17 at 21:00 Clonidine (Catapres) 0.1 mg Q6H PRN PO ELEVATED SYSTOLIC BP; Start 02/18/17 at 16:00 Baclofen (Lioresal) 5 mg BID PO Last administered on 02/21/17 09:21; Admin Dose 5 MG; Start 02/19/17 at 10:30 Aspirin (Aspirin) 81 mg DAILY PO Last administered on 02/21/17 09:21; Admin Dose 81 MG; Start 02/20/17 at 09:00 Levetiracetam (Keppra) 500 mg BID PO Last administered on 02/21/17 09:21; Admin Dose 500 MG; Start 02/20/17 at 21:00 Assessment/Plan Chief Complaint/Hosp Course Neuroexam: AOx2 , fluent speech, decreased response to visual threat from the left, pupils reactive 4 to 3 mm right, 3 to 2 mm on the left, EOMI, left facial droop, normal sensations, tongue on midline. Increased tone, spasticity LUE 0/5 , LLE 3/5 . Sensory intact, to touch. DTR 2 on the right, 3 on the left, left babinski. Coordination intact RUE, no dysmetria or tremor. Jerk like movements of the LLE, q1-2 sec since AM A/P: Left sided focal motor seizures, normal mentation. Increase Keppra 500 mg tid, also I'll add clonazepam 0.25 bid. 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 Cont anticoagulation, ASA 81, keep normotensive euglycemic, continue statin. Consider acute rehab. Problems: GA GRIER MD Feb 21, 2017 12:00
--- NOTE | 2017-02-21 14:56 | CONS ---
Date/Time of Note Date/Time of Note DATE: 02/21/17 TIME: 14:54 Assessment/Plan Assessment/Plan Chief Complaint/Hosp Course ID PROGRESS NOTE CURRENT ABX: Ceftriaxone #6 24H INTERVAL SUMMARY * She is awake, alert, responsive, doing well, feels OK, no fevers * MICROBIOLOGY: Urine culture growing Klebsiella pneumonia. BCx (-) * Chart reviewed EXAM GNE: 82 yo F A/A/responsive, VSS HEENT: Unremarkable NECK: Supple CVS: RRR, S1 and S2 CHEST: Equal chest rise bilaterally without dyspnea ABD: Soft, NT, + BS EXT: No c/c/e, LUEXT paresis ID ASSESSMENT 82 yo F admit with: 1. Acute Cerebrovascular accident (CVA) w/left sided hemiparesis 2. GNR Urinary tract infection 3. Seizure activity -> (+)Muscle twitching, on Keppra 4. Hypertension. 5. Dyslipidemia. (-) MRSA Nares CURRENT ABX: Ceftriaxone #6 ID RECOMMENDATIONS 1. Continue Ceftriaxone total 7 days -- 2. Aspiration precautions . Problems: Consultation Date/Type/Reason Admit Date/Time Feb 18, 2017 at 08:37 Initial Consult Date 02/17/17 Type of Consultation: ID Referring Provider: FORTUNATO ALBERTO DO Exam/Review of Systems Vital Signs Vitals Vital Signs Date Time Temp Pulse Resp B/P Pulse Ox O2 Delivery O2 Flow Rate FiO2 02/21/17 12:08 98.2 75 18 111/63 99 Intake and Output 02/20/17 02/20/17 02/21/17 15:00 23:00 07:00 Intake Total 305 ml 60 ml Balance 305 ml 60 ml Results Result Diagram: 02/20/17 0645 02/20/17 0645 Medications Medications Current Medications Ondansetron HCl (Zofran Inj) 4 mg Q6H PRN IV NAUSEA AND/OR VOMITING; Start at 20:30 Acetaminophen 650 mg 650 mg Q6H PRN PO PAIN LEVEL 1-3 OR FEVER; Start 02/15/17 at 20:30 Ceftriaxone Sodium (Rocephin) 50 ml @ 100 mls/hr Q24H IVPB Last administered on 02/20/17t 18:32; Admin Dose 100 MLS/HR; Start 02/16/17 at 17:00 Atorvastatin Calcium (Lipitor) 80 mg QHS PO Last administered on 02/20/17 21: 01; Admin Dose 80 MG; Start 02/15/17 at 21:00 Docusate Sodium (Colace) 100 mg BID PO Last administered on 02/21/17 09:22; Admin Dose 100 MG; Start 02/15/17 at 21:00 Escitalopram Oxalate (Lexapro) 10 mg QHS PO Last administered on 02/20/17 21: 01; Admin Dose 10 MG; Start 02/15/17 at 21:00 Lisinopril (Zestril) 5 mg DAILY PO Last administered on 02/21/17 09:22; Admin Dose 5 MG; Start 02/16/17 at 09:00 Meclizine HCl (Antivert) 25 mg DAILY PRN PO DIZZINESS; Start 02/15/17 at 20:30 Metoprolol Succinate (Toprol Xl) 12.5 mg BID PO Last administered on 02/21/17 09:22; Admin Dose 12.5 MG; Start 02/15/17 at 21:00 Polyethylene Glycol (Miralax) 17 gm DAILY PO Last administered on 02/19/17 09: 35; Admin Dose 17 GM; Start 02/16/17 at 09:00 Simethicone (Mylicon) 160 mg TID PRN PO STOMACH UPSET Last administered on 02/18 17:55; Admin Dose 160 MG; Start 02/15/17 at 20:30 Pantoprazole (Protonix Tab) 40 mg DAILY@06 PO Last administered on 02/21/17 05 :24; Admin Dose 40 MG; Start 02/16/17 at 06:00 Lactulose (Enulose) 20 gm TID PO Last administered on 02/20/17 21:02; Admin Dose 20 GM; Start 02/15/17 at 21:00 Zolpidem Tartrate (Ambien) 5 mg HS PRN PO INSOMNIA Last administered on 21:07; Admin Dose 5 MG; Start 02/15/17 at 21:00 Clonidine (Catapres) 0.1 mg Q6H PRN PO ELEVATED SYSTOLIC BP; Start 02/18/17 at 16:00 Aspirin (Aspirin) 81 mg DAILY PO Last administered on 02/21/17 09:21; Admin Dose 81 MG; Start 8/26/17 at 09:00 Levetiracetam (Keppra) 500 mg TID PO Last administered on 02/21/17 13:30; Admin Dose 500 MG; Start 02/21/17 at 13:00 Clonazepam (Klonopin) 0.25 mg BID PO Last administered on 02/21/17 12:00; Admin Dose 0.25 MG; Start 02/21/17 at 12:00 GONZALES AVELAR NP Feb 21, 2017 14:56
[2017-02-21] MEDS: RIVAROXABAN 20 MG TABLET PO SCH (17:33)
[2017-02-21] MEDS: CEFTRIAXONE 1 GM/50 ML (PMX) 50 ML IVPB SCH (17:34)
--- NOTE | 2017-02-21 21:20 | CONS ---
Date/Time of Note Date/Time of Note DATE: 02/21/17 TIME: : Assessment/Plan Assessment/Plan Chief Complaint/Hosp Course IMPRESSION: ANEMIA MONITOR BLOOD COUNT CLOSELY ACD CVD MRI- Large remote right MCA distribution infarct involving the right frontal and parietal lobes with extensive encephalomalacia and gliosis in the underlying white matter. In the deepest portions of the ounce infarct, there are small areas of acute/recent infarct superimposed on the chronic infarct. Small area of acute/recent infarct involving the right periventricular white matter. NEURO F-UP ON KEPPRA ON ASA AND XARELTO acute rehab SZ per neuro Syncope. cardiology f-up, ruled out cardiac arrhythmia. Ruled out acute coronary syndrome. telemetry CARD f-up follow blood pressures closely with possible need for low- dose beta ted per cardiology resumed Xarelto at this time for possible ventral thromboembolic complications. It is for atrial fibrillation. fasting lipid panel for general stratification and initiate lipid medications necessary. 2D echo to rule out any decreased EF for significant valvular wall motion abnormalities that may be associated with the syncopal episode. DECONDITIONING PT Hypertension. Dyslipidemia. History of cerebrovascular accident. Dementia. Possible urinary tract infection. Possible cardiac arrhythmias by medications. Problems: Consultation Date/Type/Reason Admit Date/Time Feb 18, 2017 at 08:37 Initial Consult Date 02/15/17 Type of Consultation: [facility] Referring Provider: FORTUNATO ALBERTO DO 24 HR Interval Summary Free Text/Dictation all noted no new events sz - better but still present Jerk like movements of the LLE, q1-2 sec since AM Exam/Review of Systems Vital Signs Vitals Vital Signs Date Time Temp Pulse Resp B/P Pulse Ox O2 Delivery O2 Flow Rate FiO2 02/21/17 20:28 97.5 77 20 110/65 97 Intake and Output 02/20/17 02/20/17 02/21/17 15:00 23:00 07:00 Intake Total 305 ml 60 ml Balance 305 ml 60 ml Exam GENERAL: The patient is alert, awake, in no acute distress. NECK: JVP approximately 8-9 cm of water. LUNGS: Fair air movement throughout. HEART: Regular rate and rhythm. Normal S1, S2, 1/6 systolic murmur, nondisplaced PMI. ABDOMEN: Positive bowel sounds. Soft. EXTREMITIES: No edema. 1+ pulses bilaterally posterior tibia. + SZ --> less in intensity Results Result Diagram: 02/20/1764402/20/17644 Medications Medications Current Medications Ondansetron HCl (Zofran Inj) 4 mg Q6H PRN IV NAUSEA AND/OR VOMITING; Start at 20:30 Acetaminophen 650 mg 650 mg Q6H PRN PO PAIN LEVEL 1-3 OR FEVER; Start 02/15/17 at 20:30 Ceftriaxone Sodium (Rocephin) 50 ml @ 100 mls/hr Q24H IVPB Last administered on 02/21/17 17:34; Admin Dose 100 MLS/HR; Start 02/16/17 at 17:00 Atorvastatin Calcium (Lipitor) 80 mg QHS PO Last administered on 02/20/17 21: 01; Admin Dose 80 MG; Start 02/15/17 at 21:00 Docusate Sodium (Colace) 100 mg BID PO Last administered on 02/21/17 09:22; Admin Dose 100 MG; Start 02/15/17 at 21:00 Escitalopram Oxalate (Lexapro) 10 mg QHS PO Last administered on 02/20/17 21: 01; Admin Dose 10 MG; Start 02/15/17 at 21:00 Lisinopril (Zestril) 5 mg DAILY PO Last administered on 02/21/17 09:22; Admin Dose 5 MG; Start 02/16/17 at 09:00 Meclizine HCl (Antivert) 25 mg DAILY PRN PO DIZZINESS; Start 02/15/17 at 20:30 Metoprolol Succinate (Toprol Xl) 12.5 mg BID PO Last administered on 02/21/17 09:22; Admin Dose 12.5 MG; Start 02/15/17 at 21:00 Polyethylene Glycol (Miralax) 17 gm DAILY PO Last administered on 02/19/17 09: 35; Admin Dose 17 GM; Start 02/16/17 at 09:00 Simethicone (Mylicon) 160 mg TID PRN PO STOMACH UPSET Last administered on 02/18 17:55; Admin Dose 160 MG; Start 02/15/17 at 20:30 Pantoprazole (Protonix Tab) 40 mg DAILY@06 PO Last administered on 02/21/17 05 :24; Admin Dose 40 MG; Start 02/16/17 at 06:00 Lactulose (Enulose) 20 gm TID PO Last administered on 02/20/17 21:02; Admin Dose 20 GM; Start 02/15/17 at 21:00 Zolpidem Tartrate (Ambien) 5 mg HS PRN PO INSOMNIA Last administered on 21:07; Admin Dose 5 MG; Start 02/15/17 at 21:00 Clonidine (Catapres) 0.1 mg Q6H PRN PO ELEVATED SYSTOLIC BP; Start 02/18/17 at 16:00 Aspirin (Aspirin) 81 mg DAILY PO Last administered on 02/21/17 09:21; Admin Dose 81 MG; Start 02/20/17 at 09:00 Levetiracetam (Keppra) 500 mg TID PO Last administered on 02/21/17 13:30; Admin Dose 500 MG; Start 02/21/17 at 13:00 Clonazepam (Klonopin) 0.25 mg BID PO Last administered on 02/21/17 12:00; Admin Dose 0.25 MG; Start 02/21/17 at 12:00 TERRA RANGEL MD Feb 21, 2017 21:20
[2017-02-21] MEDS: ATORVASTATIN 80 MG TAB PO SCH (21:54)
[2017-02-21] MEDS: ESCITALOPRAM 10 MG TAB PO SCH (21:54)
[2017-02-21] MEDS: ZOLPIDEM 5 MG TAB PO PRN (22:00)
[2017-02-22] VITALS (13 sets, daily range): BP systolic 99–129; BP diastolic 56–87; PULSE 68–81; RESP 17–19
[2017-02-22] MEDS: GENTAMICIN 0.3% 5 ML OPH BOTH EYES SCH ×6 (01:00→20:41)
[2017-02-22] MEDS: PANTOPRAZOLE (EC) 40 MG TAB PO SCH (06:36)
[2017-02-22] MEDS: METOPROLOL (XL) 25 MG TAB PO SCH ×2 (09:00→20:43)
[2017-02-22] MEDS: LISINOPRIL 5 MG TAB PO SCH (09:00)
[2017-02-22] MEDS: DOCUSATE SODIUM 100 MG CAP PO SCH ×2 (09:43→20:42)
[2017-02-22] MEDS: LEVETIRACETAM 500 MG TAB PO SCH ×2 (09:43→13:00)
[2017-02-22] MEDS: ASPIRIN 81 MG TAB PO SCH (09:44)
[2017-02-22] MEDS: clonAZEPAM 0.5 MG TAB PO SCH ×2 (09:44→20:42)
[2017-02-22] MEDS: POLYETHYLENE GLYCOL 17 GM PACKET PO SCH (09:44)
[2017-02-22] MEDS: LACTULOSE 30ML CUP PO SCH ×3 (09:44→20:42)
--- NOTE | 2017-02-22 12:20 | CONS ---
Date/Time of Note Date/Time of Note DATE: 02/22/17 TIME: 12:18 Assessment/Plan Assessment/Plan Chief Complaint/Hosp Course IMPRESSION: 1. Syncope. -NL EF by echo/RV enlargement with NL RV function/negative trop x 3/negative orthostatics/no sig arrythmias by ecg. Area of acute infarct by MRI 2. Hypertension. 3. Dyslipidemia. 4. History of cerebrovascular accident. 5. Dementia. 6. Possible urinary tract infection. 7. PAF on xarelto/BB 8. H/O cva-acute on chronic by MRI this admit Recc: -Tele -Continue low dose BBACEI -Continue statin -Continue xarelto -Continue abx's and f/u cx data -Rehab eval -neuro following Problems: Consultation Date/Type/Reason Admit Date/Time Feb 18, 2017 at 08:37 Initial Consult Date 02/15/17 Type of Consultation: cardiology Reason for Consultation syncope Referring Provider: FORTUNATO ALBERTO DO Exam/Review of Systems Vital Signs Vitals Vital Signs Date Time Temp Pulse Resp B/P Pulse Ox O2 Delivery O2 Flow Rate FiO2 02/22/17 11:44 98.5 80 18 117/61 95 Intake and Output 02/21/17 02/21/17 02/22/17 15:00 23:00 07:00 Intake Total 1060 ml Balance 1060 ml Exam Review of Systems: CONSTITUTIONAL: No fevers, chills. PULMONARY: No sob CARDIOVASCULAR: No chest pain/palpitations GASTROINTESTINAL: No nausea/vomiting. GENITOURINARY: No hematuria/dysuria. MUSCULOSKELETAL: No myagias/arthalgias. PSYCHIATRIC: The patient denies depression. NEUROLOGIC: lethargic Constitutional: alert Psych: no complaints Head: normocephalic ENMT: mucosa pink and moist Neck: jvd (8 cm water), supple Respiratory: diminished breath sounds (at bases/B) Cardiovascular: regular rate and rhythm Gastrointestinal: non-tender, soft Musculoskeletal: muscle tone (normal) Extremities: edema (none) Neurological: other (No focal deficits) Results Result Diagram: 02/20/17 0645 02/20/17 0645 Medications Medications Current Medications Ondansetron HCl (Zofran Inj) 4 mg Q6H PRN IV NAUSEA AND/OR VOMITING; Start at 20:30 Acetaminophen 650 mg 650 mg Q6H PRN PO PAIN LEVEL 1-3 OR FEVER; Start 02/15/17 at 20:30 Ceftriaxone Sodium (Rocephin) 50 ml @ 100 mls/hr Q24H IVPB Last administered on 02/21/17 17:34; Admin Dose 100 MLS/HR; Start 02/16/17 at 17:00 Atorvastatin Calcium (Lipitor) 80 mg QHS PO Last administered on 02/21/17 21: 54; Admin Dose 80 MG; Start 02/15/17 at 21:00 Docusate Sodium (Colace) 100 mg BID PO Last administered on 02/22/17 09:43; Admin Dose 100 MG; Start 02/15/17 at 21:00 Escitalopram Oxalate (Lexapro) 10 mg QHS PO Last administered on 02/21/17 21: 54; Admin Dose 10 MG; Start 02/15/17 at 21:00 Lisinopril (Zestril) 5 mg DAILY PO Last administered on 02/21/17 09:22; Admin Dose 5 MG; Start 02/16/17 at 09:00 Meclizine HCl (Antivert) 25 mg DAILY PRN PO DIZZINESS; Start 02/15/17 at 20:30 Metoprolol Succinate (Toprol Xl) 12.5 mg BID PO Last administered on 02/21/17 21:57; Admin Dose 12.5 MG; Start 02/15/17 at 21:00 Polyethylene Glycol (Miralax) 17 gm DAILY PO Last administered on 02/22/17 09: 44; Admin Dose 17 GM; Start 02/16/17 at 09:00 Simethicone (Mylicon) 160 mg TID PRN PO STOMACH UPSET Last administered on 02/18 17:55; Admin Dose 160 MG; Start 02/15/17 at 20:30 Pantoprazole (Protonix Tab) 40 mg DAILY@06 PO Last administered on 02/22/17 06 :36; Admin Dose 40 MG; Start 02/16/17 at 06:00 Lactulose (Enulose) 20 gm TID PO Last administered on 02/22/17 09:44; Admin Dose 20 GM; Start 02/15/17 at 21:00 Zolpidem Tartrate (Ambien) 5 mg HS PRN PO INSOMNIA Last administered on 22:00; Admin Dose 5 MG; Start 02/15/17 at 21:00 Clonidine (Catapres) 0.1 mg Q6H PRN PO ELEVATED SYSTOLIC BP; Start 02/18/17 at 16:00 Aspirin (Aspirin) 81 mg DAILY PO Last administered on 02/22/17 09:44; Admin Dose 81 MG; Start 02/20/17 at 09:00 Levetiracetam (Keppra) 500 mg TID PO Last administered on 02/22/17 09:43; Admin Dose 500 MG; Start 02/21/17 at 13:00 Clonazepam (Klonopin) 0.25 mg BID PO Last administered on 02/22/17 09:44; Admin Dose 0.25 MG; Start 02/21/17 at 12:00 DAVID TESFAYE Feb 22, 2017 12:20
--- NOTE | 2017-02-22 14:20 | CONS ---
Date/Time of Note Date/Time of Note DATE: 02/22/17 TIME: 14:20 Assessment/Plan Assessment/Plan Chief Complaint/Hosp Course IMPRESSION: ANEMIA MONITOR BLOOD COUNT CLOSELY ACD CVD MRI- Large remote right MCA distribution infarct involving the right frontal and parietal lobes with extensive encephalomalacia and gliosis in the underlying white matter. In the deepest portions of the ounce infarct, there are small areas of acute/recent infarct superimposed on the chronic infarct. Small area of acute/recent infarct involving the right periventricular white matter. NEURO F-UP ON KEPPRA ON ASA AND ELIQUIS acute rehab SZ per neuro Syncope. cardiology f-up, ruled out cardiac arrhythmia. Ruled out acute coronary syndrome. telemetry CARD f-up follow blood pressures closely with possible need for low- dose beta ted per cardiology resumed Xarelto at this time for possible ventral thromboembolic complications. It is for atrial fibrillation. fasting lipid panel for general stratification and initiate lipid medications necessary. 2D echo to rule out any decreased EF for significant valvular wall motion abnormalities that may be associated with the syncopal episode. DECONDITIONING PT Hypertension. Dyslipidemia. History of cerebrovascular accident. Dementia. Possible urinary tract infection. Possible cardiac arrhythmias by medications. Problems: Consultation Date/Type/Reason Admit Date/Time Feb 18, 2017 at 08:37 Initial Consult Date 02/15/17 Type of Consultation: [facility] Referring Provider: FORTUNATO ALBERTO DO 24 HR Interval Summary Free Text/Dictation ALL NOTED still intermittent left leg jerk like movements, at times rhythmical EEG- ABN NEURO - ON CASE Exam/Review of Systems Vital Signs Vitals Vital Signs Date Time Temp Pulse Resp B/P Pulse Ox O2 Delivery O2 Flow Rate FiO2 02/22/17 13:21 71 02/22/17 11:44 98.5 18 117/61 95 Intake and Output 02/21/17 02/21/17 02/22/17 15:00 23:00 07:00 Intake Total 1060 ml Balance 1060 ml Exam GENERAL: The patient is alert, awake, in no acute distress. NECK: JVP approximately 8-9 cm of water. LUNGS: Fair air movement throughout. HEART: Regular rate and rhythm. Normal S1, S2, 1/6 systolic murmur, nondisplaced PMI. ABDOMEN: Positive bowel sounds. Soft. EXTREMITIES: No edema. 1+ pulses bilaterally posterior tibia. Results Result Diagram: 02/20/1745 02/20/17644 Medications Medications Current Medications Ondansetron HCl (Zofran Inj) 4 mg Q6H PRN IV NAUSEA AND/OR VOMITING; Start at 20:30 Acetaminophen 650 mg 650 mg Q6H PRN PO PAIN LEVEL 1-3 OR FEVER; Start 02/15/17 at 20:30 Ceftriaxone Sodium (Rocephin) 50 ml @ 100 mls/hr Q24H IVPB Last administered on 02/21/17 17:34; Admin Dose 100 MLS/HR; Start 02/16/17 at 17:00 Atorvastatin Calcium (Lipitor) 80 mg QHS PO Last administered on 02/21/17 21: 54; Admin Dose 80 MG; Start 02/15/17 at 21:00 Docusate Sodium (Colace) 100 mg BID PO Last administered on 02/22/17 09:43; Admin Dose 100 MG; Start 02/15/17 at 21:00 Escitalopram Oxalate (Lexapro) 10 mg QHS PO Last administered on 02/21/17 21: 54; Admin Dose 10 MG; Start 02/15/17 at 21:00 Lisinopril (Zestril) 5 mg DAILY PO Last administered on 02/21/17 09:22; Admin Dose 5 MG; Start 02/16/17 at 09:00 Meclizine HCl (Antivert) 25 mg DAILY PRN PO DIZZINESS; Start 02/15/17 at 20:30 Metoprolol Succinate (Toprol Xl) 12.5 mg BID PO Last administered on 02/21/17 21:57; Admin Dose 12.5 MG; Start 02/15/17 at 21:00 Polyethylene Glycol (Miralax) 17 gm DAILY PO Last administered on 02/22/17 09: 44; Admin Dose 17 GM; Start 02/16/17 at 09:00 Simethicone (Mylicon) 160 mg TID PRN PO STOMACH UPSET Last administered on 02/18 17:55; Admin Dose 160 MG; Start 02/15/17 at 20:30 Pantoprazole (Protonix Tab) 40 mg DAILY@06 PO Last administered on 02/22/17 06 :36; Admin Dose 40 MG; Start 02/16/17 at 06:00 Lactulose (Enulose) 20 gm TID PO Last administered on 02/22/17 09:44; Admin Dose 20 GM; Start 02/15/17 at 21:00 Zolpidem Tartrate (Ambien) 5 mg HS PRN PO INSOMNIA Last administered on 22:00; Admin Dose 5 MG; Start 02/15/17 at 21:00 Clonidine (Catapres) 0.1 mg Q6H PRN PO ELEVATED SYSTOLIC BP; Start 02/18/17 at 16:00 Aspirin (Aspirin) 81 mg DAILY PO Last administered on 02/22/17 09:44; Admin Dose 81 MG; Start 02/20/17 at 09:00 Levetiracetam (Keppra) 500 mg TID PO Last administered on 02/22/17 09:43; Admin Dose 500 MG; Start 02/21/17 at 13:00 Clonazepam (Klonopin) 0.25 mg BID PO Last administered on 02/22/17 09:44; Admin Dose 0.25 MG; Start 02/21/17 at 12:00 TERRA RANGEL MD Feb 22, 2017 14:20
[2017-02-22] MEDS: CEFTRIAXONE 1 GM/50 ML (PMX) 50 ML IVPB SCH (17:00)
--- NOTE | 2017-02-22 17:41 | PN ---
DATE: 02/22/2017 SUBJECTIVE DATA: The patient is stable. No events overnight. No fevers, chills, nausea, vomiting. No shortness of breath. OBJECTIVE DATA: VITAL SIGNS: Blood pressure is 129/87, respirations 18, pulse 65, and temperature 97.7. HEENT: Head is normocephalic. NECK: Supple. HEART: Regular rate. LUNGS: Diminished breath sounds at the base. ABDOMEN: Soft, nontender to palpation. No rebound or guarding. EXTREMITIES: Negative for clubbing, cyanosis. No edema. DERMATOLOGIC: Clean. No rashes. MUSCULOSKELETAL: No joint effusion. NEUROLOGIC: No change in exam. MEDICATIONS: Reviewed. LABORATORY AND DIAGNOSTIC DATA: Has been reviewed. No new labs. ASSESSMENT AND PLAN: 1. Acute cerebrovascular accident (CVA). Continue current medical management. Xarelto, aspirin, and Lipitor. 2. Myoclonic jerks. Questionable seizure. The patient is on Keppra ad Baclofen, continue. 3. Hypertension, improved. Continue current blood pressure regimen. 4. Urinary tract infection (UTI). The patient is to complete antibiotic course. 5. Coronary artery disease. Continue medical management. 6. Dyslipidemia. Continue statin therapy. 7. Anemia. Monitor hemoglobin and hematocrit levels. 8. Dementia. Continue to monitor. 9. Paroxysmal atrial fibrillation. Currently sinus rhythm. 10. Anxiety and depression. Continue Lexapro. 11. Gastrointestinal (GI) and deep venous thrombosis (DVT) prophylaxis. Continue proton pump inhibitor (PPI) and Xarelto. Dictated By: Derrick Bloom DO /anders/raiza /Document#: [id number]
--- NOTE | 2017-02-22 19:54 | CONS ---
Date/Time of Note Date/Time of Note DATE: 02/22/17 TIME: 19:50 Consult Date/Type/Reason Admit Date/Time Feb 18, 2017 at 08:37 Initial Consult Date 02/17/17 Type of Consultation: neurology Ordering Provider: FORTUNATO ALBERTO DO Subjective still intermittent left leg jerk like movements, at times rhythmical Objective Vital Signs Date Time Temp Pulse Resp B/P Pulse Ox O2 Delivery O2 Flow Rate FiO2 02/22/17 19:38 97.5 71 19 99/60 96 Intake and Output 02/21/17 02/21/17 02/22/17 15:00 23:00 07:00 Intake Total 1060 ml Balance 1060 ml Results/Medications Result Diagram: 02/20/1745 02/20/17 0645 Medications Current Medications Ondansetron HCl (Zofran Inj) 4 mg Q6H PRN IV NAUSEA AND/OR VOMITING; Start at 20:30 Acetaminophen 650 mg 650 mg Q6H PRN PO PAIN LEVEL 1-3 OR FEVER; Start 02/15/17 at 20:30 Ceftriaxone Sodium (Rocephin) 50 ml @ 100 mls/hr Q24H IVPB Last administered on 02/22/17 17:00; Admin Dose 100 MLS/HR; Start 02/16/17 at 17:00 Atorvastatin Calcium (Lipitor) 80 mg QHS PO Last administered on 02/21/17 21: 54; Admin Dose 80 MG; Start 02/15/17 at 21:00 Docusate Sodium (Colace) 100 mg BID PO Last administered on 02/22/17 09:43; Admin Dose 100 MG; Start 02/15/17 at 21:00 Escitalopram Oxalate (Lexapro) 10 mg QHS PO Last administered on 02/21/17 21: 54; Admin Dose 10 MG; Start 02/15/17 at 21:00 Lisinopril (Zestril) 5 mg DAILY PO Last administered on 02/21/17 09:22; Admin Dose 5 MG; Start 02/16/17 at 09:00 Meclizine HCl (Antivert) 25 mg DAILY PRN PO DIZZINESS; Start 02/15/17 at 20:30 Metoprolol Succinate (Toprol Xl) 12.5 mg BID PO Last administered on 02/21/17 21:57; Admin Dose 12.5 MG; Start 02/15/17 at 21:00 Polyethylene Glycol (Miralax) 17 gm DAILY PO Last administered on 02/22/17 09: 44; Admin Dose 17 GM; Start 02/16/17 at 09:00 Simethicone (Mylicon) 160 mg TID PRN PO STOMACH UPSET Last administered on 02/18 17:55; Admin Dose 160 MG; Start 02/15/17 at 20:30 Pantoprazole (Protonix Tab) 40 mg DAILY@06 PO Last administered on 02/22/17 06 :36; Admin Dose 40 MG; Start 02/16/17 at 06:00 Lactulose (Enulose) 20 gm TID PO Last administered on 02/22/17 09:44; Admin Dose 20 GM; Start 02/15/17 at 21:00 Zolpidem Tartrate (Ambien) 5 mg HS PRN PO INSOMNIA Last administered on 22:00; Admin Dose 5 MG; Start 02/15/17 at 21:00 Clonidine (Catapres) 0.1 mg Q6H PRN PO ELEVATED SYSTOLIC BP; Start 02/18/17 at 16:00 Aspirin (Aspirin) 81 mg DAILY PO Last administered on 02/22/17 09:44; Admin Dose 81 MG; Start 02/20/17 at 09:00 Levetiracetam (Keppra) 500 mg TID PO Last administered on 02/22/17 09:43; Admin Dose 500 MG; Start 02/21/17 at 13:00 Clonazepam (Klonopin) 0.25 mg BID PO Last administered on 02/22/17 09:44; Admin Dose 0.25 MG; Start 02/21/17 at 12:00 Apixaban (Eliquis) 2.5 mg BID PO ; Start 02/22/17 at 21:00 Assessment/Plan Chief Complaint/Hosp Course Neuroexam: AOx2 , fluent speech, decreased response to visual threat from the left, pupils reactive 4 to 3 mm right, 3 to 2 mm on the left, EOMI, left facial droop, normal sensations, tongue on midline. Increased tone, spasticity LUE 0/5 , LLE 3/5 . Sensory intact, to touch. DTR 2 on the right, 3 on the left, left babinski. Coordination intact RUE, no dysmetria or tremor. Jerk like movements of the LLE, q1-2 sec since AM A/P: Left sided focal motor seizures, normal mentation. Increase Keppra 750 mg tid, also I'll add clonazepam 0.25 bid. 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 Cont anticoagulation, ASA 81, keep normotensive euglycemic, continue statin. Consider acute rehab. EEG right temporal parietal sharps, infrequent, not rhythmical, no ongoing electrical seizures seen, at times focal motor seizures could not be seen on EEG. Problems: GA GRIER MD Feb 22, 2017 19:53
[2017-02-22] MEDS: APIXABAN 5 MG TABLET PO SCH (20:42)
[2017-02-22] MEDS: ATORVASTATIN 80 MG TAB PO SCH (20:42)
[2017-02-22] MEDS: ESCITALOPRAM 10 MG TAB PO SCH (20:42)
[2017-02-22] MEDS: LEVETIRACETAM 750 MG TAB PO SCH (22:58)
[2017-02-23] VITALS (11 sets, daily range): BP systolic 100–119; BP diastolic 56–65; PULSE 60–82; RESP 17–19
[2017-02-23] MEDS: GENTAMICIN 0.3% 5 ML OPH BOTH EYES SCH ×6 (01:47→20:48)
--- NOTE | 2017-02-23 03:59 | PRO ---
DATE OF PROCEDURE: 02/22/2017 PROCEDURE: EEG. INDICATION: The patient is a 81-year-old lady with acute, as well as chronic, stroke in the right hemisphere and left-sided tremulousness, suspicious for focal seizures. MEDICATIONS: 1. Keppra. 2. Clonazepam. Routine EEG was recorded digitally. [id number] and scalp-to- ear montages were recorded and reviewed. All impedances were measured and recorded. Cap electrodes were placed in accordance with international 10-20 system of electrode placements. DESCRIPTION OF PROCEDURE: Background activity of approximately 8 cycles per second was seen in the awake state. This activity attenuates with eye opening. Photic stimulation produces no definite driving. Occasional left temporal parietal sharp waves were seen, not frequent and not rhythmical. No signs of ongoing electrographic seizures. No lateralized slowing was observed. IMPRESSION: Abnormal study, due to the presence of the right temporal parietal sharp waves which may reflect presence of structural abnormality of patient's stroke, and could be epileptogenic. No signs of ongoing seizures. Please note that focal seizures, especially simple focal seizures, sometimes could be missed on EEG. Dictated By: Jose Thomas MD /anders/mira /Document#: [id number] ROBERTO CARLOS
--- NOTE | 2017-02-23 04:00 | PN ---
DATE: 02/22/2017 SUBJECTIVE DATA: No events overnight. Patient is alert, looks comfortable. No fevers. VITAL SIGNS: Stable. LABORATORY AND DIAGNOSTIC DATA: No labs this morning. ANTIMICROBIALS: Remains on ceftriaxone, day number 7. PHYSICAL EXAMINATION: GENERAL: Fragile, elderly woman who is awake, in no distress. HEENT: Head atraumatic, normocephalic. Sclerae anicteric. Buccal mucosa dry. NECK: Supple. Trachea midline. CHEST: Rise symmetrical. Breath sounds clear. HEART: S1, S2. ABDOMEN: Soft, bowel sounds present. EXTREMITIES: With left paresis and twitching of the left side. ASSESSMENT: 1. Acute cerebrovascular accident, with left-sided hemiparesis. 2. Status post urinary tract infection. 3. Hypertension. 4. Questionable seizure disorder. PLAN: Patient remains stable. Neurology follows. We are going to discontinue antibiotics and observe her, continue on anti- aspiration measures and repeat cultures p.r.n. Above was discussed with son at bedside. Dictated By: Jake Jimenez NP /anders/kel /Document#: [id number]
[2017-02-23] MEDS: PANTOPRAZOLE (EC) 40 MG TAB PO SCH (05:10)
--- NOTE | 2017-02-23 09:35 | CONS ---
Date/Time of Note Date/Time of Note DATE: 02/23/17 TIME: 09:32 Assessment/Plan Assessment/Plan Additional Assessment/Plan 1. Syncope. -NL EF by echo/RV enlargement with NL RV function/negative trop x 3/negative orthostatics/no sig arrythmias by ecg. Area of acute infarct by MRI - neuro follows - NO SIGNIFICANT ECTOPY ON TELE 2. Hypertension - well Rx, con't med rx. WELL RX now. 3. Dyslipidemia- Rx as needed 4. History of cerebrovascular accident- stable, neuro follows - new CVA noted , on meds. 5. Dementia. 6. Possible urinary tract infection- on anti-bx - treated 7. PAF on xarelto - no bleeding 8. H/O cva-acute on chronic by MRI this admit 9. CAD - no CP now, no intervention planned. Consultation Date/Type/Reason Admit Date/Time Feb 18, 2017 at 08:37 Initial Consult Date 02/15/17 Type of Consultation: neurology Referring Provider: FORTUNATO ALBERTO DO 24 HR Interval Summary Free Text/Dictation NO acute events - BP in good range - no CP, doubt ischemia - will Rx medically now. Rate well controlled in a. fib. ROS: No fever, no chills, no nausea, no vomiting, no diarrhea/constipation No recent weight changes No chest pain, no PND, no orthopnea No dizziness, blurred vision No thirst, no heat or cold intolerance Exam/Review of Systems Vital Signs Vitals Vital Signs Date Time Temp Pulse Resp B/P Pulse Ox O2 Delivery O2 Flow Rate FiO2 02/23/17 07:36 98.2 76 17 109/56 97 Intake and Output 02/22/17 02/22/17 02/23/17 15:00 23:00 07:00 Intake Total 435 ml 200 ml Balance 435 ml 200 ml Exam General: WN/WD/NAD, AOx confused HEENT: Unicetric/atraumatic/EOMI (does not follow commands) NECK: JVD elevated, no thyromegaly Lymph: no lymphadenopathy HEART: Ir Irregular with no S3, II/ systolic murmur at apex LUNGS: Coarse sounds ABD: soft, NT, ND, +BS : Intact Neuro: non focal SKIN: chronic changes EXT: trace edema Results Result Diagram: 02/20/1745 02/20/17644 Medications Medications Current Medications Ondansetron HCl (Zofran Inj) 4 mg Q6H PRN IV NAUSEA AND/OR VOMITING; Start at 20:30 Acetaminophen 650 mg 650 mg Q6H PRN PO PAIN LEVEL 1-3 OR FEVER; Start 02/15/17 at 20:30 Ceftriaxone Sodium (Rocephin) 50 ml @ 100 mls/hr Q24H IVPB Last administered on 02/22/17 17:00; Admin Dose 100 MLS/HR; Start 02/16/17 at 17:00 Atorvastatin Calcium (Lipitor) 80 mg QHS PO Last administered on 02/22/17 20: 42; Admin Dose 80 MG; Start 02/15/17 at 21:00 Docusate Sodium (Colace) 100 mg BID PO Last administered on 02/22/17 20:42; Admin Dose 100 MG; Start 02/15/17 at 21:00 Escitalopram Oxalate (Lexapro) 10 mg QHS PO Last administered on 02/22/17 20: 42; Admin Dose 10 MG; Start 02/15/17 at 21:00 Lisinopril (Zestril) 5 mg DAILY PO Last administered on 02/21/17 09:22; Admin Dose 5 MG; Start 02/16/17 at 09:00 Meclizine HCl (Antivert) 25 mg DAILY PRN PO DIZZINESS; Start 02/15/17 at 20:30 Metoprolol Succinate (Toprol Xl) 12.5 mg BID PO Last administered on 02/21/17 21:57; Admin Dose 12.5 MG; Start 02/15/17 at 21:00 Polyethylene Glycol (Miralax) 17 gm DAILY PO Last administered on 02/22/17 09: 44; Admin Dose 17 GM; Start 02/16/17 at 09:00 Simethicone (Mylicon) 160 mg TID PRN PO STOMACH UPSET Last administered on 02/18 17:55; Admin Dose 160 MG; Start 02/15/17 at 20:30 Pantoprazole (Protonix Tab) 40 mg DAILY@06 PO Last administered on 02/23/17 05 :10; Admin Dose 40 MG; Start 02/16/17 at 06:00 Lactulose (Enulose) 20 gm TID PO Last administered on 02/22/17 20:42; Admin Dose 20 GM; Start 02/15/17 at 21:00 Zolpidem Tartrate (Ambien) 5 mg HS PRN PO INSOMNIA Last administered on 22:00; Admin Dose 5 MG; Start 02/15/17 at 21:00 Clonidine (Catapres) 0.1 mg Q6H PRN PO ELEVATED SYSTOLIC BP; Start 02/18/17 at 16:00 Aspirin (Aspirin) 81 mg DAILY PO Last administered on 02/22/17 09:44; Admin Dose 81 MG; Start 02/20/17 at 09:00 Clonazepam (Klonopin) 0.25 mg BID PO Last administered on 02/22/17 20:42; Admin Dose 0.25 MG; Start 02/21/17 at 12:00 Apixaban (Eliquis) 2.5 mg BID PO Last administered on 02/22/17 20:42; Admin Dose 2.5 MG; Start 02/22/17 at 21:00 Levetiracetam (Keppra) 750 mg TID PO Last administered on 02/22/17 22:58; Admin Dose 750 MG; Start 02/22/17 at 21:00 NAGI NARANJO MD Feb 23, 2017 09:35
[2017-02-23] MEDS: LACTULOSE 30ML CUP PO SCH ×3 (09:43→20:50)
[2017-02-23] MEDS: POLYETHYLENE GLYCOL 17 GM PACKET PO SCH (09:43)
[2017-02-23] MEDS: ASPIRIN 81 MG TAB PO SCH (09:44)
[2017-02-23] MEDS: DOCUSATE SODIUM 100 MG CAP PO SCH ×2 (09:44→20:48)
[2017-02-23] MEDS: APIXABAN 5 MG TABLET PO SCH ×2 (09:44→20:49)
[2017-02-23] MEDS: LEVETIRACETAM 750 MG TAB PO SCH ×3 (09:44→20:50)
[2017-02-23] MEDS: METOPROLOL (XL) 25 MG TAB PO SCH ×2 (09:47→20:50)
[2017-02-23] MEDS: LISINOPRIL 5 MG TAB PO SCH (09:48)
[2017-02-23] MEDS: clonAZEPAM 0.5 MG TAB PO SCH ×2 (09:51→20:48)
--- NOTE | 2017-02-23 10:34 | PN ---
DATE: 02/23/2017 SUBJECTIVE DATA: Patient is stable. No events overnight. No fevers, chills, nausea, vomiting. OBJECTIVE DATA: VITAL SIGNS: Blood pressure is 109/56, temperature 98.2, respirations 17. HEENT: Head is normocephalic. NECK: Supple. HEART: Regular rate. LUNGS: Show diminished breath sounds at the base. ABDOMEN: Soft, nontender to palpation. No rebound or guarding. EXTREMITIES: Negative for clubbing, cyanosis. No edema. DERMATOLOGIC: Clean. No rashes. MUSCULOSKELETAL: No joint effusion. NEUROLOGIC: No change in exam. MEDICATIONS: Reviewed. LABORATORY AND DIAGNOSTIC DATA: Reviewed. No new labs. ASSESSMENT AND PLAN: 1. Acute cerebrovascular accident. The patient is currently stable. Continue medical management with Xarelto, aspirin, Lipitor. 2. Questionable seizure, status post myoclonic jerks. The patient remains on Keppra and baclofen. Continue to monitor. Follow up with Neurology. 3. Hypertension, controlled. Continue current blood pressure regimen. 4. Urinary tract infection. Continue current antibiotic regimen. 5. Coronary artery disease. Continue current treatment plan. 6. Dyslipidemia. Continue statin therapy. 7. Anemia. Continue to monitor H and H levels. 8. Dementia. Continue to monitor. 9. Paroxysmal atrial fibrillation. Currently in sinus rhythm. 10. Anxiety, depression. Continue Lexapro. 11. Gastrointestinal and deep venous thrombosis prophylaxis. Continue proton pump inhibitor and Xarelto. Dictated By: Derrick Bloom DO /anders/elkin /Document#: [id number]
--- NOTE | 2017-02-23 13:13 | CONS ---
Date/Time of Note Date/Time of Note DATE: 02/23/17 TIME: 13:11 Assessment/Plan Assessment/Plan Chief Complaint/Hosp Course SUBJECTIVE DATA: No acute changes. Patient is awake looks comfortable. Temperature 98.3 pulse 82 respirations 18 blood pressure 100/63 saturation 94 on room air PHYSICAL EXAMINATION: GENERAL: This is a well-developed, well-nourished, fragile elderly woman, who is alert, in no distress. HEENT: Head atraumatic, normocephalic. Sclerae anicteric. Buccal mucosa pink. NECK: Supple. CHEST: Rise symmetrical. Breath sounds clear. HEART: S1, S2. ABDOMEN: Soft, bowel sounds present. EXTREMITIES: Without cyanosis. ASSESSMENT: 1. Status post urinary tract infection. 2. Acute Cerebrovascular accident (CVA). 3. Hypertension. 4. Dyslipidemia. 5. Recurrent muscle twitching PLAN: The patient remains stable, DC antibiotics, follow neurology recommendations [facility] staff Problems: Consultation Date/Type/Reason Admit Date/Time Feb 18, 2017 at 08:37 Initial Consult Date 02/17/17 Type of Consultation: ID Referring Provider: FORTUNATO ALBERTO DO Exam/Review of Systems Vital Signs Vitals Vital Signs Date Time Temp Pulse Resp B/P Pulse Ox O2 Delivery O2 Flow Rate FiO2 02/23/17 12:11 82 02/23/17 11:30 98.3 18 100/63 94 Intake and Output 02/22/17 02/22/17 02/23/17 15:00 23:00 07:00 Intake Total 435 ml 200 ml Balance 435 ml 200 ml Results Result Diagram: 02/20/17 0645 02/20/17 0645 Medications Medications Current Medications Ondansetron HCl (Zofran Inj) 4 mg Q6H PRN IV NAUSEA AND/OR VOMITING; Start at 20:30 Acetaminophen 650 mg 650 mg Q6H PRN PO PAIN LEVEL 1-3 OR FEVER; Start 02/15/17 at 20:30 Ceftriaxone Sodium (Rocephin) 50 ml @ 100 mls/hr Q24H IVPB Last administered on 02/22/17 17:00; Admin Dose 100 MLS/HR; Start 02/16/17 at 17:00 Atorvastatin Calcium (Lipitor) 80 mg QHS PO Last administered on 02/22/17 20: 42; Admin Dose 80 MG; Start 02/15/17 at 21:00 Docusate Sodium (Colace) 100 mg BID PO Last administered on 02/23/17 09:44; Admin Dose 100 MG; Start 02/15/17 at 21:00 Escitalopram Oxalate (Lexapro) 10 mg QHS PO Last administered on 02/22/17 20: 42; Admin Dose 10 MG; Start 02/15/17 at 21:00 Lisinopril (Zestril) 5 mg DAILY PO Last administered on 02/23/17 09:48; Admin Dose 5 MG; Start 02/16/17 at 09:00 Meclizine HCl (Antivert) 25 mg DAILY PRN PO DIZZINESS; Start 02/15/17 at 20:30 Metoprolol Succinate (Toprol Xl) 12.5 mg BID PO Last administered on 02/23/17 09:47; Admin Dose 12.5 MG; Start 02/15/17 at 21:00 Polyethylene Glycol (Miralax) 17 gm DAILY PO Last administered on 02/23/17 09: 43; Admin Dose 17 GM; Start 02/16/17 at 09:00 Simethicone (Mylicon) 160 mg TID PRN PO STOMACH UPSET Last administered on 02/18 17:55; Admin Dose 160 MG; Start 02/15/17 at 20:30 Pantoprazole (Protonix Tab) 40 mg DAILY@06 PO Last administered on 02/23/17 05 :10; Admin Dose 40 MG; Start 02/16/17 at 06:00 Lactulose (Enulose) 20 gm TID PO Last administered on 02/23/17 09:43; Admin Dose 20 GM; Start 02/15/17 at 21:00 Zolpidem Tartrate (Ambien) 5 mg HS PRN PO INSOMNIA Last administered on 22:00; Admin Dose 5 MG; Start 02/15/17 at 21:00 Clonidine (Catapres) 0.1 mg Q6H PRN PO ELEVATED SYSTOLIC BP; Start 02/18/17 at 16:00 Aspirin (Aspirin) 81 mg DAILY PO Last administered on 02/23/17 09:44; Admin Dose 81 MG; Start 02/20/17 at 09:00 Clonazepam (Klonopin) 0.25 mg BID PO Last administered on 02/23/17 09:51; Admin Dose 0.25 MG; Start 02/21/17 at 12:00 Apixaban (Eliquis) 2.5 mg BID PO Last administered on 02/23/17 09:44; Admin Dose 2.5 MG; Start 02/22/17 at 21:00 Levetiracetam (Keppra) 750 mg TID PO Last administered on 02/23/17 09:44; Admin Dose 750 MG; Start 02/22/17 at 21:00 DWAINE CHIRINOS NP Feb 23, 2017 13:13
[2017-02-23] MEDS: ATORVASTATIN 80 MG TAB PO SCH (20:49)
[2017-02-23] MEDS: ESCITALOPRAM 10 MG TAB PO SCH (20:49)
--- NOTE | 2017-02-23 21:40 | CONS ---
Date/Time of Note Date/Time of Note DATE: 02/23/17 TIME: 21:38 Consult Date/Type/Reason Admit Date/Time Feb 18, 2017 at 08:37 Initial Consult Date 02/17/17 Type of Consultation: neuro Ordering Provider: FORTUNATO ALBERTO DO Subjective no acute events, still intermittent jerk like movements of the left leg, now not rhythmical Objective Vital Signs Date Time Temp Pulse Resp B/P Pulse Ox O2 Delivery O2 Flow Rate FiO2 02/23/17 20:20 75 02/23/17 19:42 98.4 19 106/60 97 Intake and Output 02/22/17 02/22/17 02/23/17 15:00 23:00 07:00 Intake Total 435 ml 200 ml Balance 435 ml 200 ml Results/Medications Result Diagram: 02/20/17 0645 02/20/17 0645 Medications Current Medications Ondansetron HCl (Zofran Inj) 4 mg Q6H PRN IV NAUSEA AND/OR VOMITING; Start at 20:30 Acetaminophen (Tylenol Tab) 650 mg Q6H PRN PO PAIN LEVEL 1-3 OR FEVER Last administered on 02/23/17 14:16; Admin Dose 650 MG; Start 02/15/17 at 20:30 Atorvastatin Calcium (Lipitor) 80 mg QHS PO Last administered on 02/23/17 20: 49; Admin Dose 80 MG; Start 02/15/17 at 21:00 Docusate Sodium (Colace) 100 mg BID PO Last administered on 02/23/17 20:48; Admin Dose 100 MG; Start 02/15/17 at 21:00 Escitalopram Oxalate (Lexapro) 10 mg QHS PO Last administered on 02/23/17 20: 49; Admin Dose 10 MG; Start 02/15/17 at 21:00 Lisinopril (Zestril) 5 mg DAILY PO Last administered on 02/23/17 09:48; Admin Dose 5 MG; Start 02/16/17 at 09:00 Meclizine HCl (Antivert) 25 mg DAILY PRN PO DIZZINESS; Start 02/15/17 at 20:30 Metoprolol Succinate (Toprol Xl) 12.5 mg BID PO Last administered on 02/23/17 20:50; Admin Dose 12.5 MG; Start 02/15/17 at 21:00 Polyethylene Glycol (Miralax) 17 gm DAILY PO Last administered on 02/23/17 09: 43; Admin Dose 17 GM; Start 02/16/17 at 09:00 Simethicone (Mylicon) 160 mg TID PRN PO STOMACH UPSET Last administered on 02/18 17:55; Admin Dose 160 MG; Start 02/15/17 at 20:30 Pantoprazole (Protonix Tab) 40 mg DAILY@06 PO Last administered on 02/23/17 05 :10; Admin Dose 40 MG; Start 02/16/17 at 06:00 Lactulose (Enulose) 20 gm TID PO Last administered on 02/23/17 20:50; Admin Dose 20 GM; Start 02/15/17 at 21:00 Zolpidem Tartrate (Ambien) 5 mg HS PRN PO INSOMNIA Last administered on 22:00; Admin Dose 5 MG; Start 02/15/17 at 21:00 Clonidine (Catapres) 0.1 mg Q6H PRN PO ELEVATED SYSTOLIC BP; Start 02/18/17 at 16:00 Aspirin (Aspirin) 81 mg DAILY PO Last administered on 02/23/17 09:44; Admin Dose 81 MG; Start 02/20/17 at 09:00 Clonazepam (Klonopin) 0.25 mg BID PO Last administered on 02/23/17 20:48; Admin Dose 0.25 MG; Start 02/21/17 at 12:00 Apixaban (Eliquis) 2.5 mg BID PO Last administered on 02/23/17 20:49; Admin Dose 2.5 MG; Start 02/22/17 at 21:00 Levetiracetam (Keppra) 750 mg TID PO Last administered on 02/23/17 20:50; Admin Dose 750 MG; Start 02/22/17 at 21:00 Assessment/Plan Chief Complaint/Hosp Course Neuroexam: AOx2 , fluent speech, decreased response to visual threat from the left, pupils reactive 4 to 3 mm right, 3 to 2 mm on the left, EOMI, left facial droop, normal sensations, tongue on midline. Increased tone, spasticity LUE 0/5 , LLE 3/5 . Sensory intact, to touch. DTR 2 on the right, 3 on the left, left babinski. Coordination intact RUE, no dysmetria or tremor. Jerk like movements of the LLE, intermittent not definitely rhythmical A/P: Left sided focal motor seizures vs myoclonus. Increase Keppra 750 mg tid, also I'll add clonazepam 0.25 bid. 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 Cont anticoagulation, ASA 81, keep normotensive euglycemic, continue statin. Consider acute rehab. EEG right temporal parietal sharps, infrequent, not rhythmical, no ongoing electrical seizures seen, at times focal motor seizures could not be seen on EEG. Problems: GA GRIER MD Feb 23, 2017 21:40
--- NOTE | 2017-02-23 22:33 | CONS ---
Date/Time of Note Date/Time of Note DATE: 02/23/17 TIME: 22:32 Assessment/Plan Assessment/Plan Chief Complaint/Hosp Course IMPRESSION: ANEMIA MONITOR BLOOD COUNT CLOSELY ACD CVD MRI- Large remote right MCA distribution infarct involving the right frontal and parietal lobes with extensive encephalomalacia and gliosis in the underlying white matter. In the deepest portions of the ounce infarct, there are small areas of acute/recent infarct superimposed on the chronic infarct. Small area of acute/recent infarct involving the right periventricular white matter. NEURO F-UP ON KEPPRA ON ASA AND ELIQUIS acute rehab SZ per neuro Syncope. cardiology f-up, ruled out cardiac arrhythmia. Ruled out acute coronary syndrome. telemetry CARD f-up follow blood pressures closely with possible need for low- dose beta ted per cardiology resumed Xarelto at this time for possible ventral thromboembolic complications. It is for atrial fibrillation. fasting lipid panel for general stratification and initiate lipid medications necessary. 2D echo to rule out any decreased EF for significant valvular wall motion abnormalities that may be associated with the syncopal episode. DECONDITIONING PT Hypertension. Dyslipidemia. History of cerebrovascular accident. Dementia. Possible urinary tract infection. Possible cardiac arrhythmias by medications. Problems: Consultation Date/Type/Reason Admit Date/Time Feb 18, 2017 at 08:37 Initial Consult Date 02/15/17 Type of Consultation: neuro Referring Provider: FORTUNATO ALBERTO DO 24 HR Interval Summary Free Text/Dictation ALL NOTED SZ- LESSENED Exam/Review of Systems Vital Signs Vitals Vital Signs Date Time Temp Pulse Resp B/P Pulse Ox O2 Delivery O2 Flow Rate FiO2 02/23/17 20:20 75 02/23/17 19:42 98.4 19 106/60 97 Intake and Output 02/22/17 02/22/17 02/23/17 15:00 23:00 07:00 Intake Total 435 ml 200 ml Balance 435 ml 200 ml Exam GENERAL: The patient is alert, awake, in no acute distress. NECK: JVP approximately 8-9 cm of water. LUNGS: Fair air movement throughout. HEART: Regular rate and rhythm. Normal S1, S2, 1/6 systolic murmur, nondisplaced PMI. ABDOMEN: Positive bowel sounds. Soft. EXTREMITIES: No edema. 1+ pulses bilaterally posterior tibia. Results Result Diagram: 02/20/17 0645 02/20/1745 Medications Medications Current Medications Ondansetron HCl (Zofran Inj) 4 mg Q6H PRN IV NAUSEA AND/OR VOMITING; Start at 20:30 Acetaminophen (Tylenol Tab) 650 mg Q6H PRN PO PAIN LEVEL 1-3 OR FEVER Last administered on 02/23/17 14:16; Admin Dose 650 MG; Start 02/15/17 at 20:30 Atorvastatin Calcium (Lipitor) 80 mg QHS PO Last administered on 02/23/17 20: 49; Admin Dose 80 MG; Start 02/15/17 at 21:00 Docusate Sodium (Colace) 100 mg BID PO Last administered on 02/23/17 20:48; Admin Dose 100 MG; Start 02/15/17 at 21:00 Escitalopram Oxalate (Lexapro) 10 mg QHS PO Last administered on 02/23/17 20: 49; Admin Dose 10 MG; Start 02/15/17 at 21:00 Lisinopril (Zestril) 5 mg DAILY PO Last administered on 02/23/17 09:48; Admin Dose 5 MG; Start 02/16/17 at 09:00 Meclizine HCl (Antivert) 25 mg DAILY PRN PO DIZZINESS; Start 02/15/17 at 20:30 Metoprolol Succinate (Toprol Xl) 12.5 mg BID PO Last administered on 02/23/17 20:50; Admin Dose 12.5 MG; Start 02/15/17 at 21:00 Polyethylene Glycol (Miralax) 17 gm DAILY PO Last administered on 02/23/17 09: 43; Admin Dose 17 GM; Start 02/16/17 at 09:00 Simethicone (Mylicon) 160 mg TID PRN PO STOMACH UPSET Last administered on 02/18 17:55; Admin Dose 160 MG; Start 02/15/17 at 20:30 Pantoprazole (Protonix Tab) 40 mg DAILY@06 PO Last administered on 02/23/17 05 :10; Admin Dose 40 MG; Start 02/16/17 at 06:00 Lactulose (Enulose) 20 gm TID PO Last administered on 02/23/17 20:50; Admin Dose 20 GM; Start 02/15/17 at 21:00 Zolpidem Tartrate (Ambien) 5 mg HS PRN PO INSOMNIA Last administered on 22:00; Admin Dose 5 MG; Start 02/15/17 at 21:00 Clonidine (Catapres) 0.1 mg Q6H PRN PO ELEVATED SYSTOLIC BP; Start 02/18/17 at 16:00 Aspirin (Aspirin) 81 mg DAILY PO Last administered on 02/23/17 09:44; Admin Dose 81 MG; Start 02/20/17 at 09:00 Clonazepam (Klonopin) 0.25 mg BID PO Last administered on 02/23/17 20:48; Admin Dose 0.25 MG; Start 02/21/17 at 12:00 Apixaban (Eliquis) 2.5 mg BID PO Last administered on 02/23/17 20:49; Admin Dose 2.5 MG; Start 02/22/17 at 21:00 Levetiracetam (Keppra) 750 mg TID PO Last administered on 02/23/17 20:50; Admin Dose 750 MG; Start 02/22/17 at 21:00 TERRA RANGEL MD Feb 23, 2017 22:33
[2017-02-24] VITALS (10 sets, daily range): BP systolic 108–125; BP diastolic 69–74; PULSE 68–80; RESP 18–19
[2017-02-24] MEDS: GENTAMICIN 0.3% 5 ML OPH BOTH EYES SCH ×4 (01:24→14:10)
[2017-02-24] MEDS: PANTOPRAZOLE (EC) 40 MG TAB PO SCH (05:15)
[2017-02-24] MEDS: LEVETIRACETAM 750 MG TAB PO SCH ×2 (08:48→14:09)
[2017-02-24] MEDS: LISINOPRIL 5 MG TAB PO SCH (08:49)
[2017-02-24] MEDS: LACTULOSE 30ML CUP PO SCH ×2 (08:50→13:00)
[2017-02-24] MEDS: APIXABAN 5 MG TABLET PO SCH (08:50)
[2017-02-24] MEDS: clonAZEPAM 0.5 MG TAB PO SCH (08:50)
[2017-02-24] MEDS: POLYETHYLENE GLYCOL 17 GM PACKET PO SCH (08:50)
[2017-02-24] MEDS: ASPIRIN 81 MG TAB PO SCH (08:50)
[2017-02-24] MEDS: METOPROLOL (XL) 25 MG TAB PO SCH (08:50)
[2017-02-24] MEDS: DOCUSATE SODIUM 100 MG CAP PO SCH (08:51)
--- NOTE | 2017-02-24 12:48 | DS ---
DATE OF ADMISSION: 02/18/2017 DATE OF DISCHARGE: 02/24/2017 HOSPITAL COURSE: This is a 82-year-old female with a past medical history of cerebrovascular accident with left-sided hemiparesis, history of hypertension, dyslipidemia, coronary artery disease, who presents to [facility] with generalized weakness for 3 days after a syncopal episode. The patient was subsequently admitted and was seen by finisher operator and neurology. The patient's syncopal workup was negative; however, during the hospital course the patient became hypertensive and more altered. A MRI of the brain was obtained, which showed findings of a new infarct in the right MCA distribution. The patient was medically managed with aspirin on top of her anticoagulation of Eliquis. The patient is clinically stable and has been working with physical therapy in anticipation of transfer to acute rehab for continued care. The patient during hospital course, also had a urinary tract infection which was treated with IV antibiotics. Currently at this time the patient is stable, will be transferred for acute rehab for continued care. FINAL DIAGNOSES: 1. Acute cerebrovascular accident. 2. Status post myoclonic jerks. 3. Noted seizures, currently on Keppra. 4. Hypertension. 5. Status post urinary tract infection. 6. Coronary artery disease. 7. Dyslipidemia. 8. Anemia. 9. Dementia. 10. Paroxysmal atrial fibrillation. 11. Anxiety disorder with depression. 12. Gastrointestinal and deep venous prophylaxis; the patient remains on Eliquis and PPI. DISCHARGE CONDITION: The patient is stable, in no acute distress. DISCHARGE MEDICATIONS: See reconciliation list. TIME SPENT: Please note, it took me over 30 minutes time to prepare patient's transfer. Dictated By: Derrick Bloom DO /anders/cindy /Document#: [id number]
--- NOTE | 2017-02-24 15:26 | CONS ---
Date/Time of Note Date/Time of Note DATE: 02/24/17 TIME: 15:24 Assessment/Plan Assessment/Plan Chief Complaint/Hosp Course IMPRESSION: 1. Syncope. -NL EF by echo/RV enlargement with NL RV function/negative trop x 3/negative orthostatics/no sig arrythmias by ecg. Area of acute infarct by MRI 2. Hypertension. 3. Dyslipidemia. 4. History of cerebrovascular accident. 5. Dementia. 6. Possible urinary tract infection. 7. PAF on xarelto/BB 8. H/O cva-acute on chronic by MRI this admit Recc: -Tele -Continue low dose BBACEI -Continue statin -Continue xarelto -Continue abx's and f/u cx data -Rehab eval -neuro following Problems: Consultation Date/Type/Reason Admit Date/Time Feb 18, 2017 at 08:37 Initial Consult Date 02/15/17 Type of Consultation: cardiology Reason for Consultation syncope Referring Provider: FORTUNATO ALBERTO DO Exam/Review of Systems Vital Signs Vitals Vital Signs Date Time Temp Pulse Resp B/P Pulse Ox O2 Delivery O2 Flow Rate FiO2 02/24/17 12:13 76 02/24/17 12:00 98.2 19 125/74 98 Intake and Output 02/23/17 02/23/17 02/24/17 15:00 23:00 07:00 Intake Total 480 ml 300 ml Balance 480 ml 300 ml Exam Review of Systems: CONSTITUTIONAL: No fevers, chills. PULMONARY: No sob CARDIOVASCULAR: No chest pain/palpitations GASTROINTESTINAL: No nausea/vomiting. GENITOURINARY: No hematuria/dysuria. MUSCULOSKELETAL: No myagias/arthalgias. PSYCHIATRIC: The patient denies depression. NEUROLOGIC: lethargic Constitutional: other (sleeping) Psych: no complaints Head: normocephalic ENMT: mucosa pink and moist Neck: jvd (8-9 cm water), supple Respiratory: diminished breath sounds (at bases/B) Cardiovascular: regular rate and rhythm Gastrointestinal: non-tender, soft Musculoskeletal: muscle tone (normal) Extremities: edema (none) Results Result Diagram: 02/20/17 0645 02/20/17 0645 Medications Medications Current Medications Ondansetron HCl (Zofran Inj) 4 mg Q6H PRN IV NAUSEA AND/OR VOMITING; Start at 20:30 Acetaminophen (Tylenol Tab) 650 mg Q6H PRN PO PAIN LEVEL 1-3 OR FEVER Last administered on 02/23/17 14:16; Admin Dose 650 MG; Start 02/15/17 at 20:30 Atorvastatin Calcium (Lipitor) 80 mg QHS PO Last administered on 02/23/17 20: 49; Admin Dose 80 MG; Start 02/15/17 at 21:00 Docusate Sodium (Colace) 100 mg BID PO Last administered on 02/24/17 08:51; Admin Dose 100 MG; Start 02/15/17 at 21:00 Escitalopram Oxalate (Lexapro) 10 mg QHS PO Last administered on 02/23/17 20: 49; Admin Dose 10 MG; Start 02/15/17 at 21:00 Lisinopril (Zestril) 5 mg DAILY PO Last administered on 02/24/17 08:49; Admin Dose 5 MG; Start 02/16/17 at 09:00 Meclizine HCl (Antivert) 25 mg DAILY PRN PO DIZZINESS; Start 02/15/17 at 20:30 Metoprolol Succinate (Toprol Xl) 12.5 mg BID PO Last administered on 02/24/17 08:50; Admin Dose 12.5 MG; Start 02/15/17 at 21:00 Polyethylene Glycol (Miralax) 17 gm DAILY PO Last administered on 02/24/17 08: 50; Admin Dose 17 GM; Start 02/16/17 at 09:00 Simethicone (Mylicon) 160 mg TID PRN PO STOMACH UPSET Last administered on 02/18 17:55; Admin Dose 160 MG; Start 02/15/17 at 20:30 Pantoprazole (Protonix Tab) 40 mg DAILY@06 PO Last administered on 02/24/17 05 :15; Admin Dose 40 MG; Start 02/16/17 at 06:00 Lactulose (Enulose) 20 gm TID PO Last administered on 02/24/17 08:50; Admin Dose 20 GM; Start 02/15/17 at 21:00 Zolpidem Tartrate (Ambien) 5 mg HS PRN PO INSOMNIA Last administered on 22:00; Admin Dose 5 MG; Start 02/15/17 at 21:00 Clonidine (Catapres) 0.1 mg Q6H PRN PO ELEVATED SYSTOLIC BP; Start 02/18/17 at 16:00 Aspirin (Aspirin) 81 mg DAILY PO Last administered on 02/24/17 08:50; Admin Dose 81 MG; Start 02/20/17 at 09:00 Clonazepam (Klonopin) 0.25 mg BID PO Last administered on 02/24/17 08:50; Admin Dose 0.25 MG; Start 02/21/17 at 12:00 Apixaban (Eliquis) 2.5 mg BID PO Last administered on 02/24/17 08:50; Admin Dose 2.5 MG; Start 02/22/17 at 21:00 Levetiracetam (Keppra) 750 mg TID PO Last administered on 02/24/17 14:09; Admin Dose 750 MG; Start 02/22/17 at 21:00 DAVID TESFAYE Feb 24, 2017 15:26
--- NOTE | 2017-02-24 21:53 | CONS ---
Date/Time of Note Date/Time of Note DATE: 02/24/17 TIME: 16:51 VK LE Assessment/Plan Assessment/Plan Chief Complaint/Hosp Course IMPRESSION: ANEMIA MONITOR BLOOD COUNT CLOSELY ACD CVD MRI- Large remote right MCA distribution infarct involving the right frontal and parietal lobes with extensive encephalomalacia and gliosis in the underlying white matter. In the deepest portions of the ounce infarct, there are small areas of acute/recent infarct superimposed on the chronic infarct. Small area of acute/recent infarct involving the right periventricular white matter. NEURO F-UP ON KEPPRA ON ASA AND ELIQUIS acute rehab SZ per neuro Syncope. cardiology f-up, ruled out cardiac arrhythmia. Ruled out acute coronary syndrome. telemetry CARD f-up follow blood pressures closely with possible need for low- dose beta ted per cardiology resumed Xarelto at this time for possible ventral thromboembolic complications. It is for atrial fibrillation.. NOW CHANGED TO ELIQUIS fasting lipid panel for general stratification and initiate lipid medications necessary. 2D echo to rule out any decreased EF for significant valvular wall motion abnormalities that may be associated with the syncopal episode. DECONDITIONING PT Hypertension. Dyslipidemia. History of cerebrovascular accident. Dementia. Possible urinary tract infection. Possible cardiac arrhythmias by medications. Problems: Consultation Date/Type/Reason Admit Date/Time Feb 18, 2017 at 08:37 Initial Consult Date 02/15/17 Type of Consultation: [facility] Referring Provider: FORTUNATO ALBERTO DO 24 HR Interval Summary Free Text/Dictation ALL NOTED GOING TO SUBACUTE TODAY FELLING SL BETTER Exam/Review of Systems Vital Signs Vitals Vital Signs Date Time Temp Pulse Resp B/P Pulse Ox O2 Delivery O2 Flow Rate FiO2 02/24/17 16:20 68 02/24/17 16:00 97.8 18 108/69 96 Intake and Output 02/23/17 02/23/17 02/24/17 15:00 23:00 07:00 Intake Total 480 ml 300 ml Balance 480 ml 300 ml Exam GENERAL: The patient is alert, awake, in no acute distress. NECK: JVP approximately 8-9 cm of water. LUNGS: Fair air movement throughout. HEART: Regular rate and rhythm. Normal S1, S2, 1/6 systolic murmur, nondisplaced PMI. ABDOMEN: Positive bowel sounds. Soft. EXTREMITIES: No edema. 1+ pulses bilaterally posterior tibia. Results Result Diagram: 02/20/17 0645 02/20/17 0645 TERRA RANGEL MD Feb 24, 2017 21:53
--- NOTE | 2017-02-25 03:00 | PN ---
DATE: 02/24/2017 SUBJECTIVE DATA: The patient is awake, looks comfortable. Denies pain. She is afebrile. She is off antibiotics. OBJECTIVE DATA: VITAL SIGNS: Temperature 97.7, pulse is 70, respirations 20, blood pressure 125/74, saturation 98 on room air. GENERAL: Fragile, elderly woman who is alert in no distress. HEENT: Head is atraumatic, normocephalic. Sclerae are anicteric. Buccal mucosa is pink. NECK: Supple. LUNGS: Chest rise is symmetrical. Breath sounds are clear. HEART: S1, S2. ABDOMEN: Soft. Bowel sounds present. EXTREMITIES: Without cyanosis. ASSESSMENT: 1. Status post urinary tract infection. 2. Acute cerebrovascular accident. 3. Hypertension and dyslipidemia. 4. Recurrent muscle twitching. PLAN: The patient remains stable. Neurology is on the case. She is off antibiotics. Pending discharge planning. Dictated By: Jake Jimenez NP /anders/mira /Document#: [id number]
== END 2017-02-24 18:05 | DRG 65 ==
LOC: E/R 13:33 → INTOOBSV 15:58 → MS3 15:58 → MS4 22:20 → OBSVTOIN 02-18 08:37
PROVIDERS: ADMIT Internal Medicine; ATTEND Internal Medicine
DX: I63.9 Cerebral infarction, unspecified (principal); I69.954 Hemiplegia and hemiparesis following unspecified cerebrovascular disease affecting left non-dominant side; F03.90 Unspecified dementia, unspecified severity, without behavioral disturbance, psychotic disturbance, mood disturbance, and anxiety; N39.0 Urinary tract infection, site not specified; R56.9 Unspecified convulsions; I48.0 Paroxysmal atrial fibrillation; B96.1 Klebsiella pneumoniae [K. pneumoniae] as the cause of diseases classified elsewhere; D64.9 Anemia, unspecified; E78.5 Hyperlipidemia, unspecified; F41.8 Other specified anxiety disorders; I10 Essential (primary) hypertension; Z79.02 Long term (current) use of antithrombotics/antiplatelets
CPT/HCPCS: 36415; 70450; 70551; 71010; 80048; 80053; 80061; 81003; 82306; 82378; 82607; 82728; 82746; 82962; 83540; 83615; 83690; 83735; 84100; 84436; 84443; 84479; 84484; 84560; 85025; 85045; 85651; 87086; 92610; 93005; 93306; 93880; 95819; 97110; 97162; 97530; G0378; J0696; J1953; P9612

== ENCOUNTER 2017-02-23 18:43 | Inpatient (IN) | payer MEDICARE, OTHER ==
[~2017-02-23] VITALS: Ht 172.7 cm; Wt 73.5 kg
[~2017-02-23 18:43] MED LIST changes: -ACET325T45 PO; -APIX5TAB PO; -BISA10SU75 PR; +DONE23TA12 PO; +ESOM40CA PO; -FAMO-96 PO; -FLEETPED PR; -LACT-9 PO; +LACT10SO36 PO; +LIPA1CAP PO; -MAGN1TAB PO; -MAGN400O4 PO; +MECL-77 PO; +METO-335 PO; -METO-448 PO; -MULT-105 PO; +MYL80 PO; +RIVA20TA PO; -SIME125T PO
[2017-02-24 18:49] VITALS: BP 119/68; PULSE 74; RESP 18
[2017-02-24 20:00] VITALS: BP 148/79; RESP 18; Ht 172.7 cm; Wt 73.5 kg
[2017-02-24] MEDS ORDERED: ONDANSETRON 4 MG INJ IV PRN (21:00)
[2017-02-24] MEDS: LACTULOSE 30ML CUP PO SCH (22:00)
[2017-02-24] MEDS: [UNRECOGNIZED DRUG - REMARK] XX SCH (22:00)
[2017-02-24] MEDS: METOPROLOL (XL) 25 MG TAB PO SCH (22:00)
[2017-02-24] MEDS: ATORVASTATIN 80 MG TAB PO SCH (22:05)
[2017-02-24] MEDS: LEVETIRACETAM 750 MG TAB PO SCH (22:05)
[2017-02-24] MEDS: clonAZEPAM 0.5 MG TAB PO SCH (22:06)
[2017-02-24] MEDS: ESCITALOPRAM 10 MG TAB PO SCH (22:06)
[2017-02-24] MEDS: DOCUSATE SODIUM 100 MG CAP PO SCH (22:06)
[2017-02-24] MEDS: GENTAMICIN 0.3% 5 ML OPH BOTH EYES SCH (22:07)
[2017-02-24] MEDS: NACL 0.9% 3 ML SYG IV SCH (22:11)
[2017-02-24] MEDS: APIXABAN 5 MG TABLET PO SCH (22:11)
[2017-02-24] MEDS: ZOLPIDEM 5 MG TAB PO PRN (22:11)
[2017-02-25] MEDS: GENTAMICIN 0.3% 5 ML OPH BOTH EYES SCH ×6 (01:00→21:46)
[2017-02-25 02:00] VITALS: BP 145/73; RESP 18
[2017-02-25 03:45] LABS: ADD UMIC NO; UR ASCORBIC ACID NEGATIVE (NEGATIVE); UR BILIRUBIN (Dip) NEGATIVE (NEGATIVE); UR BLOOD (Dip) NEGATIVE (NEGATIVE); UR CLARITY CLEAR (CLEAR); UR COLOR YELLOW (YELLOW); UR GLUCOSE (Dip) NEGATIVE (NEGATIVE); UR KETONES (Dip) NEGATIVE (NEGATIVE); UR LEUKOCYTE ESTERASE (Dip) NEGATIVE Leu/ul (NEGATIVE); UR NITRITE (Dip) NEGATIVE (NEGATIVE); UR SPECIFIC GRAVITY (Dip) 1.013 (1.003-1.030); UR TOTAL PROTEIN (Dip) NEGATIVE (NEGATIVE); UR UROBILINOGEN (Dip) NEGATIVE (NEGATIVE)
[2017-02-25] MEDS: [UNRECOGNIZED DRUG - REMARK] XX SCH (05:00)
[2017-02-25] MEDS: NACL 0.9% 3 ML SYG IV SCH ×3 (06:24→22:06)
[2017-02-25 06:32] LABS: BASOPHIL # 0.1 10^3/ul (0.0-0.1); BASOPHILS % 0.9 % (0.0-2.0); EOSINOPHILS # 0.2 10^3/ul (0.0-0.5); EOSINOPHILS % 2.6 % (0.0-7.0); HEMATOCRIT 35.2 % (37.0-47.0); HEMOGLOBIN 11.1 g/dl (12.0-16.0); LYMPHOCYTES # 2.3 10^3/ul (0.8-2.9); LYMPHOCYTES % 34.1 % (15.0-51.0); MEAN CORPUSCULAR HEMOGLOBIN 28.2 pg (29.0-33.0); MEAN CORPUSCULAR HGB CONC 31.5 g/dl (32.0-37.0); MEAN CORPUSCULAR VOLUME 89.3 fl (82.0-101.0); MEAN PLATELET VOLUME 10.2 fl (7.4-10.4); MONOCYTE # 0.4 10^3/ul (0.3-0.9); MONOCYTES % 6.2 % (0.0-11.0); NEUTROPHILS % 55.6 % (39.0-77.0); PLATELET COUNT 355 10^3/UL (140-415); RED BLOOD COUNT 3.94 10^6/ul (4.20-5.40); RED CELL DISTRIBUTION WIDTH 14.3 % (11.5-14.5); WHITE BLOOD COUNT 6.6 10^3/ul (4.8-10.8)
[2017-02-25] MEDS: PANTOPRAZOLE (EC) 40 MG TAB PO SCH (06:53)
[2017-02-25 07:06] LABS: ALBUMIN 3.1 g/dl (3.3-4.9); ALBUMIN/GLOBULIN RATIO 0.86; BILIRUBIN,INDIRECT 0.1 mg/dl (0-1.1); BILIRUBIN,TOTAL 0.1 mg/dl (0.2-1.3); CALCIUM 9.1 mg/dl (8.4-10.2); CREATININE 0.58 mg/dl (0.44-1.00); POTASSIUM 4.4 mmol/L (3.5-5.1); TOTAL PROTEIN 6.7 g/dl (6.1-8.1)
[2017-02-25 07:30] VITALS: BP 136/77; RESP 18
[2017-02-25] MEDS: LACTULOSE 30ML CUP PO SCH ×3 (09:07→21:46)
[2017-02-25] MEDS: POLYETHYLENE GLYCOL 17 GM PACKET PO SCH (09:07)
[2017-02-25] MEDS: clonAZEPAM 0.5 MG TAB PO SCH ×2 (09:09→21:47)
[2017-02-25] MEDS: DOCUSATE SODIUM 100 MG CAP PO SCH ×2 (09:09→21:47)
[2017-02-25] MEDS: LEVETIRACETAM 750 MG TAB PO SCH ×3 (09:09→21:47)
[2017-02-25] MEDS: ASPIRIN 81 MG TAB PO SCH (09:10)
[2017-02-25] MEDS: LISINOPRIL 5 MG TAB PO SCH (09:10)
[2017-02-25] MEDS: APIXABAN 5 MG TABLET PO SCH ×2 (09:10→21:50)
[2017-02-25] MEDS: METOPROLOL (XL) 25 MG TAB PO SCH ×2 (09:10→21:50)
--- NOTE | 2017-02-25 10:34 | HP ---
DATE OF ADMISSION: 02/24/2017 CHIEF COMPLAINT: Acute CVA. HISTORY OF PRESENT ILLNESS: This is an 82-year-old female with a past medical history of cerebrovascular accident with right-sided hemiparesis, history of hypertension, dyslipidemia of chronic disease, who presented to [facility] with generalized weakness for 3 days from syncopal episode. The patient, during her hospital course, had a syncopal workup, which was initially negative. The patient then developed more altered behavior, hypertension, and myoclonic jerks, possible seizure. An MRI showed evidence of a new infarct in the right MCA distribution. The patient was medically managed with aspirin and Eliquis. The patient was also put on antiseizure medication. The patient was then subsequently transferred to [facility] for continued care. PAST MEDICAL HISTORY: As stated above, history of hypertension, dyslipidemia, and history of CVA. PAST SURGICAL HISTORY: Appendectomy, right inguinal hemiarthroplasty. MEDICATIONS: Have been reviewed and reconciled. FAMILY HISTORY: Noncontributory. SOCIAL HISTORY: Does not drink, smoke, or do drugs. REVIEW OF SYSTEMS: Fourteen review of systems is conducted. Pertinent positives in HPI, otherwise negative. PHYSICAL EXAMINATION: VITAL SIGNS: Blood pressure 130/86, respirations 16, pulse 72, temperature 98.7. HEENT: Head is normocephalic. NECK: Supple. HEART: Regular rate. LUNGS: Diminished breath sounds at the base. ABDOMEN: Soft. Nontender to palpation. No guarding. EXTREMITIES: Negative for clubbing, cyanosis, or edema. DERMATOLOGIC: No rashes. MUSCULOSKELETAL: No joint effusion. NEUROLOGIC: The patient has left-sided hemiparesis. No change. LABORATORY: Shows white count 6.6, hemoglobin 9.1, hematocrit 25.2, platelet count 355. Sodium 139, potassium 1.4, chloride 101, BUN 14, creatinine 0.48. ASSESSMENT AND PLAN: 1. Acute cerebrovascular accident. The patient will continue current medical management of Eliquis, aspirin, and Lipitor. 2. Seizure disorder. Continue Keppra. 3. Hypertension. Continue current blood pressure regimen. 4. This is status post urinary tract infection. 5. Coronary artery disease. Continue current medical management. 6. Continue statin therapy. 7. Anemia. Monitor hemoglobin and hematocrit levels. 8. Dementia. 9. Paroxysmal atrial fibrillation, currently in sinus rhythm. 10. Anxiety and depression. Continue Lexapro. 11. Gastrointestinal and deep venous thrombosis prophylaxis. Continue proton pump inhibitor and Eliquis. Dictated By: Derrick Bloom DO /anders/mira /Document#: [id number]
--- NOTE | 2017-02-25 16:38 | CONS ---
DATE OF ADMISSION: 02/24/2017 DATE OF CONSULTATION: 02/25/2017 REHABILITATION POST ADMISSION PHYSICIAN EVALUATION: REHABILITATION IMPAIRMENT CATEGORY: Right MCA infarct CVA with left-sided weakness. ACTIVE COMORBIDITIES: 1. Possible seizure disorder. 2. Hypertension. 3. Urinary tract infection. 4. Coronary artery disease. 5. Dyslipidemia. 6. Paroxysmal atrial fibrillation. 7. Anemia. 8. History of cerebrovascular accident. 9. Impairments in self-care, mobility and cognition. HISTORY OF PRESENT ILLNESS: The patient is an 82-year-old female with a history of multiple medical comorbidities who was admitted with increasing weakness and syncope. Workup did include an MRI of the brain which demonstrated a large right MCA acute infarct. The patient's hospital course was also notable for some myoclonic jerks, possible seizure activity and significant impairments in self-care and mobility as compared to baseline. The patient has been cleared to transfer to the rehabilitation unit for comprehensive interdisciplinary rehab care. FUNCTIONAL HISTORY: Prior to recent events, she required minimal assist for self-care and mobility tasks. Currently she requires maximal assist for self-care and mobility tasks. SOCIAL HISTORY: The patient lives at home with supportive family and hopes to return there upon discharge. PAST MEDICAL HISTORY: 1. Hypertension. 2. Coronary artery disease. 3. Dyslipidemia. 4. Paroxysmal atrial fibrillation. 5. History of CVA with residual left-sided weakness. CURRENT MEDICATIONS: 1. Eliquis 2.5 mg p.o. b.i.d. 2. Aspirin 81 mg p.o. daily. 3. Lipitor 80 mg p.o. at bedtime. 4. Klonopin 0.25 mg p.o. b.i.d. 5. Colace 100 mg b.i.d. 6. Lexapro 10 mg p.o. at bedtime. 7. Gentamicin eye drops. 8. Keppra 750 p.o. t.i.d. 9. Zestril 5 mg p.o. daily. 10. Antivert 25 mg p.r.n. 11. Toprol-XL 12.5 mg p.o. b.i.d. 12. Protonix 40 mg p.o. daily. 13. MiraLax 1 packet p.o. daily. 14. Mylicon 160 p.o. t.i.d. p.r.n. ALLERGIES: PATIENT WITH NO KNOWN DRUG ALLERGIES. PHYSICAL EXAMINATION: VITAL SIGNS: Patient is currently afebrile with stable vital signs. HEENT: Patient with notable facial droop. The extraocular motions appear intact. Oropharynx is clear. NECK: Supple. LUNGS: Clear anteriorly. HEART: S1, S2. ABDOMEN: Soft. NEUROLOGIC: She is awake, alert, and oriented to person and hospital. She will follow simple one-step commands. She demonstrates good strength in the right upper and lower. She has flaccid left upper extremity and 3- strength in the left lower extremity. PLAN: The patient has been admitted for comprehensive interdisciplinary acute rehab and is anticipated to tolerate 3 hours of daily therapy in divided doses for at least 5 out of 7 days a week. The treatment plan will include: 1. Physical therapy to focus on bed mobility, transfers, household ambulation and wheelchair mobility with goal of having patient reach a standby assist at the wheelchair and minimal assist for ambulation. 2. Occupational therapy to focus on hygiene, grooming, dressing, bathing and toileting activities with goal of having patient reach a standby assist level at the wheelchair level. 3. Speech therapy for full cognitive assessment and retraining in addition to dysphagia management with goal of having patient meet nutritional needs by mouth and return to baseline cognition. 4. Rehabilitation nursing for carry over of therapeutic interventions, the goal of continent bowel and bladder, and the goal of patient and family education with regards to the aforementioned issues. Estimated length of stay 14 days. DISPOSITION GOAL: Home. Rehabilitation Barrier: Weakness Intervention for barrier: Interdisciplinary rehab I acknowledge I performed a full physical examination on this patient within 24 hours of admission to the rehabilitation unit and believe the patient is a good candidate for comprehensive interdisciplinary rehab care and is anticipated to make reasonable goals in a reasonable period of time as outlined above. Dictated By: Nathan Ramesh MD /anders/dary /Document#: [id number] ROBERTO CARLOS
[2017-02-25] MEDS: BISACODYL 10 MG SUPP PR PRN (18:31)
--- NOTE | 2017-02-25 20:58 | CONS ---
Date/Time of Note Date/Time of Note DATE: 02/25/17 TIME: 20:54 Assessment/Plan Assessment/Plan Chief Complaint/Hosp Course Hypercoagulable state Acute cerebrovascular accident. The patient will continue current medical management of Eliquis, aspirin, and Lipitor. ANEMIA- COMPLEX, MULTIFACTORIAL LOOKS COMPENSATED AT PRESENT CONT TO MONITR Seizure disorder. Continue Keppra. Hypertension. Continue current blood pressure regimen. This is status post urinary tract infection. Coronary artery disease. Continue current medical management. Continue statin therapy. Dementia. Paroxysmal atrial fibrillation, currently in sinus rhythm. Anxiety and depression. Continue Lexapro. Gastrointestinal and deep venous thrombosis prophylaxis. Continue proton pump inhibitor and Eliquis Problems: Consultation Date/Type/Reason Admit Date/Time Feb 24, 2017 at 18:19 Date of Consultation: Feb 25, 2017 Type of Consultation: hemeonc Reason for Consultation anemia Referring Provider: MEGAN FLORES DO Hx of Present Illness This is an 82-year-old female with a past medical history of cerebrovascular accident with right-sided hemiparesis, history of hypertension, dyslipidemia of chronic disease, who presented to [facility] with generalized weakness for 3 days from syncopal episode. The patient, during her hospital course, had a syncopal workup, which was initially negative. The patient then developed more altered behavior, hypertension, and myoclonic jerks, possible seizure. An MRI showed evidence of a new infarct in the right MCA distribution. The patient was medically managed with aspirin and Eliquis. The patient was also put on antiseizure medication. The patient was then subsequently transferred to [facility] for continued care. i was asked to provide hemeon consult re anemia PAST MEDICAL HISTORY: As stated above, history of hypertension, dyslipidemia, and history of CVA. PAST SURGICAL HISTORY: Appendectomy, right inguinal hemiarthroplasty. MEDICATIONS: Have been reviewed and reconciled. FAMILY HISTORY: Noncontributory. SOCIAL HISTORY: Does not drink, smoke, or do drugs. REVIEW OF SYSTEMS: Fourteen review of systems is conducted. Pertinent positives in HPI, otherwise negative. . Past Surgical History Past Surgical Hx: no surgical history Social History Smoking Status: Never smoker Exam/Review of Systems Vital Signs Vitals Vital Signs Date Time Temp Pulse Resp B/P Pulse Ox O2 Delivery O2 Flow Rate FiO2 02/25/17 07:30 97.9 67 18 136/77 95 8/30/17 18:49 Room Air Intake and Output 02/24/17 02/24/17 02/25/17 15:00 23:00 07:00 Intake Total 360 ml 650 ml Output Total 250 ml Balance 360 ml 400 ml Exam PHYSICAL EXAMINATION: HEENT: Head is normocephalic. NECK: Supple. HEART: Regular rate. LUNGS: Diminished breath sounds at the base. ABDOMEN: Soft. Nontender to palpation. No guarding. EXTREMITIES: Negative for clubbing, cyanosis, or edema. DERMATOLOGIC: No rashes. MUSCULOSKELETAL: No joint effusion. NEUROLOGIC: The patient has left-sided hemiparesis. No change. Results Result Diagram: 02/25/1760502/25/17605 Results 24 hrs Laboratory Tests Test 02/24/17 22:45 02/25/17 06:06 Urine Color YELLOW Urine Clarity CLEAR Urine pH 5.0 Urine Specific [place] 1.013 Urine Ketones NEGATIVE Urine Nitrite NEGATIVE Urine Bilirubin NEGATIVE Urine Urobilinogen NEGATIVE Urine Leukocyte Esterase NEGATIVE Urine Hemoglobin NEGATIVE Urine Glucose NEGATIVE Urine Total Protein NEGATIVE White Blood Count 6.6 # Red Blood Count 3.94 L Hemoglobin 11.1 L Hematocrit 35.2 L Mean Corpuscular Volume 89.3 Mean Corpuscular Hemoglobin 28.2 L Mean Corpuscular Hemoglobin Concent 31.5 L Red Cell Distribution Width 14.3 Platelet Count 355 Mean Platelet Volume 10.2 Neutrophils % 55.6 Lymphocytes % 34.1 Monocytes % 6.2 Eosinophils % 2.6 Basophils % 0.9 Nucleated Red Blood Cells % 0.0 Neutrophils # (Manual) 3.7 Lymphocytes # 2.3 Monocytes # 0.4 Eosinophils # 0.2 Basophils # 0.1 Nucleated Red Blood Cells # 0.0 Sodium Level 139 Potassium Level 4.4 Chloride Level 101 Carbon Dioxide Level 26 Anion Gap 16 Blood Urea Nitrogen 14 Creatinine 0.58 Glucose Level 96 Calcium Level 9.1 Total Bilirubin 0.1 L Direct Bilirubin 0.00 Indirect Bilirubin 0.1 Aspartate Amino Transf (AST/SGOT) 17 Alanine Aminotransferase (ALT/SGPT) 26 Alkaline Phosphatase 115 Total Protein 6.7 Albumin 3.1 L Globulin 3.60 H Albumin/Globulin Ratio 0.86 Medications Medications Current Medications Pantoprazole (Protonix Tab) 40 mg DAILY@06 PO Last administered on 02/25/17t 06 :53; Admin Dose 40 MG; Start 02/25/17 at 06:00 Polyethylene Glycol (Miralax) 17 gm DAILY PO Last administered on 02/25/17 09: 07; Admin Dose 17 GM; Start 02/25/17 at 09:00 IV Flush (NS 3 ml) 3 ml Q8 IV Last administered on 02/25/17 13:54; Admin Dose 3 ML; Start 02/24/17 at 22:00 Simethicone (Mylicon) 80 mg TID PRN PO DISTENSION/GAS/BLOATING; Start 02/24/17 at 21:00 Zolpidem Tartrate (Ambien) 5 mg HS PRN PO INSOMNIA Last administered on 22:11; Admin Dose 5 MG; Start 02/24/17 at 21:00 Lactulose (Enulose) 20 gm TID PO Last administered on 02/25/17 13:54; Admin Dose 20 GM; Start 02/24/17 at 21:00 Levetiracetam (Keppra) 750 mg TID PO Last administered on 02/25/17 13:54; Admin Dose 750 MG; Start 02/24/17 at 21:00 Lisinopril (Zestril) 5 mg DAILY PO Last administered on 02/25/17 09:10; Admin Dose 5 MG; Start 02/25/17 at 09:00 Meclizine HCl (Antivert) 25 mg DAILY PRN PO VERTIGO; Start 02/24/17 at 21:00 Metoprolol Succinate (Toprol Xl) 12.5 mg BID PO Last administered on 02/25/17 09:10; Admin Dose 12.5 MG; Start 02/24/17 at 21:00 Ondansetron HCl (Zofran Inj) 4 mg Q6H PRN IV NAUSEA AND/OR VOMITING; Start at 21:00 Acetaminophen (Tylenol Tab) 650 mg Q6H PRN PO PAIN AND OR ELEVATED TEMP; Start 02/24/17 at 21:00 Apixaban (Eliquis) 2.5 mg BID PO Last administered on 02/25/17 09:10; Admin Dose 2.5 MG; Start 02/24/17 at 21:00 Aspirin (Aspirin) 81 mg DAILY PO Last administered on 02/25/17 09:10; Admin Dose 81 MG; Start 02/25/17 at 09:00 Atorvastatin Calcium (Lipitor) 80 mg DAILY@21 PO Last administered on 22:05; Admin Dose 80 MG; Start 02/24/17 at 21:00 Clonazepam (Klonopin) 0.25 mg BID PO Last administered on 02/25/17 09:09; Admin Dose 0.25 MG; Start 02/24/17 at 21:00 Gentamicin Sulfate (Gentamicin 0.3% Oph Drop) 1 drop Q4HWA BOTH EYES Last administered on 02/25/17 17:43; Admin Dose 1 DROP; Start 02/24/17 at 21:00 Escitalopram Oxalate (Lexapro) 10 mg QHS PO Last administered on 02/24/17 22: 06; Admin Dose 10 MG; Start 02/24/17 at 21:00 Docusate Sodium (Colace) 100 mg BID PO Last administered on 02/25/17 09:09; Admin Dose 100 MG; Start 02/24/17 at 21:00 Clonidine (Catapres) 0.1 mg Q6H PRN PO SBP > 170; Start 02/24/17 at 21:00 Bisacodyl (Dulcolax Supp) 10 mg DAILY PRN AL CONSTIPATION Last administered on 02/25/17 18:31; Admin Dose 10 MG; Start 02/25/17 at 04:30 TERRA RANGEL MD Feb 25, 2017 20:58
--- NOTE | 2017-02-25 21:06 | CONS ---
Date/Time of Note Date/Time of Note DATE: 02/25/17 TIME: 21:03 Assessment/Plan Assessment/Plan Chief Complaint/Hosp Course IMPRESSION: 1. Syncope. -NL EF by echo/RV enlargement with NL RV function/negative trop x 3/negative orthostatics/no sig arrythmias by ecg. Area of acute infarct by MRI 2. Hypertension. 3. Dyslipidemia. 4. History of cerebrovascular accident. 5. Dementia. 6. Possible urinary tract infection. 7. PAF on xarelto/BB 8. H/O cva-acute on chronic by MRI this admit Recc: -Now transferred to rehab -Continue low dose BB/ACEI as tolerated with slight increase -Continue statin -Now on eliquis -PT/OT Problems: Consultation Date/Type/Reason Admit Date/Time Feb 24, 2017 at 18:19 Initial Consult Date 02/25/17 Type of Consultation: cardiology Reason for Consultation syncope Referring Provider: MEGAN FLORES DO Exam/Review of Systems Vital Signs Vitals Vital Signs Date Time Temp Pulse Resp B/P Pulse Ox O2 Delivery O2 Flow Rate FiO2 02/25/17 07:30 97.9 67 18 136/77 95 02/24/17 18:49 Room Air Intake and Output 02/24/17 02/24/17 02/25/17 15:00 23:00 07:00 Intake Total 360 ml 650 ml Output Total 250 ml Balance 360 ml 400 ml Exam Review of Systems: CONSTITUTIONAL: No fevers, chills. PULMONARY: No sob CARDIOVASCULAR: No chest pain/palpitations GASTROINTESTINAL: No nausea/vomiting. GENITOURINARY: No hematuria/dysuria. MUSCULOSKELETAL: No myagias/arthalgias. PSYCHIATRIC: The patient denies depression. NEUROLOGIC: No weakness Constitutional: alert Psych: no complaints Head: normocephalic ENMT: mucosa pink and moist Neck: jvd (8 cm water), supple Respiratory: clear to auscultation Cardiovascular: regular rate and rhythm Gastrointestinal: non-tender, soft Musculoskeletal: muscle tone (normal) Extremities: edema (none) Neurological: lethargic Results Result Diagram: 02/25/17 0606 02/25/17 0606 Results 24 hrs Laboratory Tests Test 02/24/17 22:45 02/25/17 06:06 Urine Color YELLOW Urine Clarity CLEAR Urine pH 5.0 Urine Specific [place] 1.013 Urine Ketones NEGATIVE Urine Nitrite NEGATIVE Urine Bilirubin NEGATIVE Urine Urobilinogen NEGATIVE Urine Leukocyte Esterase NEGATIVE Urine Hemoglobin NEGATIVE Urine Glucose NEGATIVE Urine Total Protein NEGATIVE White Blood Count 6.6 # Red Blood Count 3.94 L Hemoglobin 11.1 L Hematocrit 35.2 L Mean Corpuscular Volume 89.3 Mean Corpuscular Hemoglobin 28.2 L Mean Corpuscular Hemoglobin Concent 31.5 L Red Cell Distribution Width 14.3 Platelet Count 355 Mean Platelet Volume 10.2 Neutrophils % 55.6 Lymphocytes % 34.1 Monocytes % 6.2 Eosinophils % 2.6 Basophils % 0.9 Nucleated Red Blood Cells % 0.0 Neutrophils # (Manual) 3.7 Lymphocytes # 2.3 Monocytes # 0.4 Eosinophils # 0.2 Basophils # 0.1 Nucleated Red Blood Cells # 0.0 Sodium Level 139 Potassium Level 4.4 Chloride Level 101 Carbon Dioxide Level 26 Anion Gap 16 Blood Urea Nitrogen 14 Creatinine 0.58 Glucose Level 96 Calcium Level 9.1 Total Bilirubin 0.1 L Direct Bilirubin 0.00 Indirect Bilirubin 0.1 Aspartate Amino Transf (AST/SGOT) 17 Alanine Aminotransferase (ALT/SGPT) 26 Alkaline Phosphatase 115 Total Protein 6.7 Albumin 3.1 L Globulin 3.60 H Albumin/Globulin Ratio 0.86 Medications Medications Current Medications Pantoprazole (Protonix Tab) 40 mg DAILY@06 PO Last administered on 02/25/17 06 :53; Admin Dose 40 MG; Start 02/25/17 at 06:00 Polyethylene Glycol (Miralax) 17 gm DAILY PO Last administered on 02/25/17 09: 07; Admin Dose 17 GM; Start 02/25/17 at 09:00 IV Flush (NS 3 ml) 3 ml Q8 IV Last administered on 02/25/17 13:54; Admin Dose 3 ML; Start 02/24/17 at 22:00 Simethicone (Mylicon) 80 mg TID PRN PO DISTENSION/GAS/BLOATING; Start 02/24/17 at 21:00 Zolpidem Tartrate (Ambien) 5 mg HS PRN PO INSOMNIA Last administered on 22:11; Admin Dose 5 MG; Start 02/24/17 at 21:00 Lactulose (Enulose) 20 gm TID PO Last administered on 02/25/17 13:54; Admin Dose 20 GM; Start 02/24/17 at 21:00 Levetiracetam (Keppra) 750 mg TID PO Last administered on 02/25/17 13:54; Admin Dose 750 MG; Start 02/24/17 at 21:00 Lisinopril (Zestril) 5 mg DAILY PO Last administered on 02/25/17 09:10; Admin Dose 5 MG; Start 02/25/17 at 09:00 Meclizine HCl (Antivert) 25 mg DAILY PRN PO VERTIGO; Start 02/24/17 at 21:00 Metoprolol Succinate (Toprol Xl) 12.5 mg BID PO Last administered on 02/25/17 09:10; Admin Dose 12.5 MG; Start 02/24/17 at 21:00 Ondansetron HCl (Zofran Inj) 4 mg Q6H PRN IV NAUSEA AND/OR VOMITING; Start at 21:00 Acetaminophen (Tylenol Tab) 650 mg Q6H PRN PO PAIN AND OR ELEVATED TEMP; Start 02/24/17 at 21:00 Apixaban (Eliquis) 2.5 mg BID PO Last administered on 02/25/17 09:10; Admin Dose 2.5 MG; Start 02/24/17 at 21:00 Aspirin (Aspirin) 81 mg DAILY PO Last administered on 02/25/17 09:10; Admin Dose 81 MG; Start 02/25/17 at 09:00 Atorvastatin Calcium (Lipitor) 80 mg DAILY@21 PO Last administered on 22:05; Admin Dose 80 MG; Start 02/24/17 at 21:00 Clonazepam (Klonopin) 0.25 mg BID PO Last administered on 02/25/17 09:09; Admin Dose 0.25 MG; Start 02/24/17 at 21:00 Gentamicin Sulfate (Gentamicin 0.3% Oph Drop) 1 drop Q4HWA BOTH EYES Last administered on 02/25/17 17:43; Admin Dose 1 DROP; Start 02/24/17 at 21:00 Escitalopram Oxalate (Lexapro) 10 mg QHS PO Last administered on 02/24/17 22: 06; Admin Dose 10 MG; Start 02/24/17 at 21:00 Docusate Sodium (Colace) 100 mg BID PO Last administered on 02/25/17 09:09; Admin Dose 100 MG; Start 02/24/17 at 21:00 Clonidine (Catapres) 0.1 mg Q6H PRN PO SBP > 170; Start 02/24/17 at 21:00 Bisacodyl (Dulcolax Supp) 10 mg DAILY PRN [place] CONSTIPATION Last administered on 02/25/17 18:31; Admin Dose 10 MG; Start 02/25/17 at 04:30 DAVID TESFAYE Feb 25, 2017 21:06
[2017-02-25] MEDS: ATORVASTATIN 80 MG TAB PO SCH (21:50)
[2017-02-25] MEDS: ESCITALOPRAM 10 MG TAB PO SCH (21:50)
[2017-02-26] MEDS: GENTAMICIN 0.3% 5 ML OPH BOTH EYES SCH ×6 (01:00→20:29)
[2017-02-26 02:13] VITALS: BP 100/66; RESP 19
[2017-02-26] MEDS: PANTOPRAZOLE (EC) 40 MG TAB PO SCH (06:52)
[2017-02-26] MEDS: NACL 0.9% 3 ML SYG IV SCH ×3 (06:53→22:10)
[2017-02-26 07:55] VITALS: BP 122/79; RESP 18
[2017-02-26] MEDS: clonAZEPAM 0.5 MG TAB PO SCH ×2 (09:33→20:30)
[2017-02-26] MEDS: ASPIRIN 81 MG TAB PO SCH (09:33)
[2017-02-26] MEDS: DOCUSATE SODIUM 100 MG CAP PO SCH ×2 (09:33→20:29)
[2017-02-26] MEDS: LACTULOSE 30ML CUP PO SCH ×3 (09:33→20:29)
[2017-02-26] MEDS: LEVETIRACETAM 750 MG TAB PO SCH ×3 (09:33→20:30)
[2017-02-26] MEDS: POLYETHYLENE GLYCOL 17 GM PACKET PO SCH (09:34)
[2017-02-26] MEDS: LISINOPRIL 5 MG TAB PO SCH (09:34)
[2017-02-26] MEDS: METOPROLOL (XL) 25 MG TAB PO SCH ×2 (09:34→20:30)
[2017-02-26] MEDS: MECLIZINE 25 MG TAB PO PRN (09:35)
[2017-02-26] MEDS: APIXABAN 5 MG TABLET PO SCH ×2 (09:42→20:29)
--- NOTE | 2017-02-26 11:22 | PN ---
DATE: 02/26/2017 SUBJECTIVE DATA: Patient is stable. No acute events overnight. No fevers, chills, nausea, vomiting. OBJECTIVE DATA: VITAL SIGNS: Blood pressure 122/79, respiration 18, pulse 67, temperature 98.2. HEENT: Head is normocephalic. NECK: Supple. HEART: Regular rate. LUNGS: Show diminished breath sounds at the base. ABDOMEN: Soft, nontender to palpation. No rebound or guarding. EXTREMITIES: Negative for clubbing, cyanosis. No edema. DERMATOLOGIC: Clean. No rashes. MUSCULOSKELETAL: No joint effusion. NEUROLOGIC: Unchanged exam. MEDICATIONS: Reviewed. LABORATORY AND DIAGNOSTIC DATA: Reviewed. No new labs. ASSESSMENT AND PLAN: 1. Acute cerebrovascular accident. The patient is currently stable. Continue medical management with Eliquis, aspirin, and Lipitor. 2. Seizure disorder. Continue Keppra. 3. Hypertension. Continue current blood pressure regimen. 4. Coronary artery disease. Continue medical management. 5. Dyslipidemia. Continue statin therapy. 6. Anemia. Monitor H and H levels. 7. History of dementia. 8. Paroxysmal atrial fibrillation. Currently in sinus rhythm. 9. Anxiety and depression. 10. Status post urinary tract infection. 11. Gastrointestinal and deep venous thrombosis prophylaxis. Dictated By: Derrick Bloom DO /anders/elkin /Document#: [id number]
--- NOTE | 2017-02-26 11:53 | CONS ---
Date/Time of Note Date/Time of Note DATE: 02/26/17 TIME: 11:52 Consult Date/Type/Reason Admit Date/Time Feb 24, 2017 at 18:19 Initial Consult Date 02/25/17 Type of Consultation: cardiology Ordering Provider: MEGAN FLORES DO Subjective Comfortable Objective pulm-cta max assist Vital Signs Date Time Temp Pulse Resp B/P Pulse Ox O2 Delivery O2 Flow Rate FiO2 02/26/17 07:55 98.2 67 18 122/79 97 02/24/17 18:49 Room Air Intake and Output 02/25/17 02/25/17 02/26/17 15:00 23:00 07:00 Intake Total 580 ml 250 ml Output Total 200 ml Balance 380 ml 250 ml Results/Medications Result Diagram: 02/25/1760502/25/17 06 Medications Current Medications Pantoprazole (Protonix Tab) 40 mg DAILY@06 PO Last administered on 02/26/17 06: 52; Admin Dose 40 MG; Start 02/25/17 at 06:00 Polyethylene Glycol (Miralax) 17 gm DAILY PO Last administered on 02/26/17 09: 34; Admin Dose 17 GM; Start 02/25/17 at 09:00 IV Flush (NS 3 ml) 3 ml Q8 IV Last administered on 02/26/17 06:53; Admin Dose 3 ML; Start 02/24/17 at 22:00 Simethicone (Mylicon) 80 mg TID PRN PO DISTENSION/GAS/BLOATING; Start 02/24/17 at 21:00 Zolpidem Tartrate (Ambien) 5 mg HS PRN PO INSOMNIA Last administered on 22:11; Admin Dose 5 MG; Start 02/24/17 at 21:00 Lactulose (Enulose) 20 gm TID PO Last administered on 02/26/17 09:33; Admin Dose 20 GM; Start 02/24/17 at 21:00 Levetiracetam (Keppra) 750 mg TID PO Last administered on 02/26/17 09:33; Admin Dose 750 MG; Start 02/24/17 at 21:00 Lisinopril (Zestril) 5 mg DAILY PO Last administered on 02/26/17 09:34; Admin Dose 5 MG; Start 02/25/17 at 09:00 Meclizine HCl (Antivert) 25 mg DAILY PRN PO VERTIGO Last administered on 09:35; Admin Dose 25 MG; Start 02/24/17 at 21:00 Metoprolol Succinate (Toprol Xl) 12.5 mg BID PO Last administered on 02/26/17 09:34; Admin Dose 12.5 MG; Start 02/24/17 at 21:00 Ondansetron HCl (Zofran Inj) 4 mg Q6H PRN IV NAUSEA AND/OR VOMITING; Start at 21:00 Acetaminophen (Tylenol Tab) 650 mg Q6H PRN PO PAIN AND OR ELEVATED TEMP; Start 02/24/17 at 21:00 Apixaban (Eliquis) 2.5 mg BID PO Last administered on 02/26/17 09:42; Admin Dose 2.5 MG; Start 02/24/17 at 21:00 Aspirin (Aspirin) 81 mg DAILY PO Last administered on 02/26/17 09:33; Admin Dose 81 MG; Start 02/25/17 at 09:00 Atorvastatin Calcium (Lipitor) 80 mg DAILY@21 PO Last administered on 21:50; Admin Dose 80 MG; Start 02/24/17 at 21:00 Clonazepam (Klonopin) 0.25 mg BID PO Last administered on 02/26/17 09:33; Admin Dose 0.25 MG; Start 02/24/17 at 21:00 Gentamicin Sulfate (Gentamicin 0.3% Oph Drop) 1 drop Q4HWA BOTH EYES Last administered on 02/26/17 09:33; Admin Dose 1 DROP; Start 02/24/17 at 21:00 Escitalopram Oxalate (Lexapro) 10 mg QHS PO Last administered on 02/25/17 21: 50; Admin Dose 10 MG; Start 02/24/17 at 21:00 Docusate Sodium (Colace) 100 mg BID PO Last administered on 02/26/17 09:33; Admin Dose 100 MG; Start 02/24/17 at 21:00 Clonidine (Catapres) 0.1 mg Q6H PRN PO SBP > 170; Start 02/24/17 at 21:00 Bisacodyl (Dulcolax Supp) [address] CONSTIPATION Last administered on 02/25/17t 18:31; Admin Dose 10 MG; Start 02/25/17 at 04:30 Assessment/Plan Additional Assessment/Plan rehab- 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 Continue rehab Possible seizure disorder. Hypertension. Urinary tract infection. Coronary artery disease. Dyslipidemia. Paroxysmal atrial fibrillation. Anemia. History of cerebrovascular accident. FARIDEH COOK MD Feb 26, 2017 11:53
--- NOTE | 2017-02-26 18:26 | CONS ---
Date/Time of Note Date/Time of Note DATE: 02/26/17 TIME: 18:24 Assessment/Plan Assessment/Plan Chief Complaint/Hosp Course IMPRESSION: 1. Syncope. -NL EF by echo/RV enlargement with NL RV function/negative trop x 3/negative orthostatics/no sig arrythmias by ecg. Area of acute infarct by MRI 2. Hypertension-labile 3. Dyslipidemia. 4. History of cerebrovascular accident. 5. Dementia. 6. Possible urinary tract infection. 7. PAF on xarelto/BB 8. H/O cva-acute on chronic by MRI this admit Recc: -Now transferred to rehab -continue keppra -Continue low dose BB/ACEI as tolerated and follow labile BP closely -Continue statin -Continue eliquis -PT/OT Problems: Consultation Date/Type/Reason Admit Date/Time Feb 24, 2017 at 18:19 Initial Consult Date 02/25/17 Type of Consultation: cardiology Reason for Consultation syncope Referring Provider: MEGAN FLORES DO Exam/Review of Systems Vital Signs Vitals Vital Signs Date Time Temp Pulse Resp B/P Pulse Ox O2 Delivery O2 Flow Rate FiO2 02/26/17 07:55 98.2 67 18 122/79 97 02/24/17 18:49 Room Air Intake and Output 02/25/17 02/25/17 02/26/17 15:00 23:00 07:00 Intake Total 580 ml 250 ml Output Total 200 ml Balance 380 ml 250 ml Exam Review of Systems: CONSTITUTIONAL: No fevers, chills. PULMONARY: No sob CARDIOVASCULAR: No chest pain/palpitations GASTROINTESTINAL: No nausea/vomiting. GENITOURINARY: No hematuria/dysuria. MUSCULOSKELETAL: No myagias/arthalgias. PSYCHIATRIC: The patient denies depression. NEUROLOGIC: lethargic Constitutional: alert Psych: no complaints ENMT: mucosa pink and moist Neck: jvd (8 cm water), supple Respiratory: clear to auscultation Cardiovascular: regular rate and rhythm Gastrointestinal: soft Musculoskeletal: muscle weakness (generalized) Extremities: edema Neurological: lethargic Results Result Diagram: 02/25/1760502/25/17605 Medications Medications Current Medications Pantoprazole (Protonix Tab) 40 mg DAILY@06 PO Last administered on 02/26/17t 06: 52; Admin Dose 40 MG; Start 02/25/17 at 06:00 Polyethylene Glycol (Miralax) 17 gm DAILY PO Last administered on 02/26/17 09: 34; Admin Dose 17 GM; Start 02/25/17 at 09:00 IV Flush (NS 3 ml) 3 ml Q8 IV Last administered on 02/26/17 14:00; Admin Dose 3 ML; Start 02/24/17 at 22:00 Simethicone (Mylicon) 80 mg TID PRN PO DISTENSION/GAS/BLOATING; Start 02/24/17 at 21:00 Zolpidem Tartrate (Ambien) 5 mg HS PRN PO INSOMNIA Last administered on 22:11; Admin Dose 5 MG; Start 02/24/17 at 21:00 Lactulose (Enulose) 20 gm TID PO Last administered on 02/26/17 09:33; Admin Dose 20 GM; Start 02/24/17 at 21:00 Levetiracetam (Keppra) 750 mg TID PO Last administered on 02/26/17 12:54; Admin Dose 750 MG; Start 02/24/17 at 21:00 Lisinopril (Zestril) 5 mg DAILY PO Last administered on 02/26/17 09:34; Admin Dose 5 MG; Start 02/25/17 at 09:00 Meclizine HCl (Antivert) 25 mg DAILY PRN PO VERTIGO Last administered on 09:35; Admin Dose 25 MG; Start 02/24/17 at 21:00 Metoprolol Succinate (Toprol Xl) 12.5 mg BID PO Last administered on 02/26/17 09:34; Admin Dose 12.5 MG; Start 02/24/17 at 21:00 Ondansetron HCl (Zofran Inj) 4 mg Q6H PRN IV NAUSEA AND/OR VOMITING; Start at 21:00 Acetaminophen (Tylenol Tab) 650 mg Q6H PRN PO PAIN AND OR ELEVATED TEMP; Start 02/24/17 at 21:00 Apixaban (Eliquis) 2.5 mg BID PO Last administered on 02/26/17 09:42; Admin Dose 2.5 MG; Start 02/24/17 at 21:00 Aspirin (Aspirin) 81 mg DAILY PO Last administered on 02/26/17 09:33; Admin Dose 81 MG; Start 02/25/17 at 09:00 Atorvastatin Calcium (Lipitor) 80 mg DAILY@21 PO Last administered on 21:50; Admin Dose 80 MG; Start 02/24/17 at 21:00 Clonazepam (Klonopin) 0.25 mg BID PO Last administered on 02/26/17 09:33; Admin Dose 0.25 MG; Start 02/24/17 at 21:00 Gentamicin Sulfate (Gentamicin 0.3% Oph Drop) 1 drop Q4HWA BOTH EYES Last administered on 02/26/17 13:00; Admin Dose 1 DROP; Start 02/24/17 at 21:00 Escitalopram Oxalate (Lexapro) 10 mg QHS PO Last administered on 02/25/17 21: 50; Admin Dose 10 MG; Start 02/24/17 at 21:00 Docusate Sodium (Colace) 100 mg BID PO Last administered on 02/26/17 09:33; Admin Dose 100 MG; Start 02/24/17 at 21:00 Clonidine (Catapres) 0.1 mg Q6H PRN PO SBP > 170; Start 02/24/17 at 21:00 Bisacodyl (Dulcolax Supp) 10 mg DAILY PRN [place] CONSTIPATION Last administered on 02/25/17 18:31; Admin Dose 10 MG; Start 02/25/17 at 04:30 DAVID TESFAYE Feb 26, 2017 18:26
--- NOTE | 2017-02-26 18:34 | CONS ---
Date/Time of Note Date/Time of Note DATE: 02/26/17 TIME: 18:33 Assessment/Plan Assessment/Plan Chief Complaint/Hosp Course Hypercoagulable state Acute cerebrovascular accident. The patient will continue current medical management of Eliquis, aspirin, and Lipitor. ANEMIA- COMPLEX, MULTIFACTORIAL LOOKS COMPENSATED AT PRESENT CONT TO MONITR Seizure disorder. Continue Keppra. Hypertension. Continue current blood pressure regimen. This is status post urinary tract infection. Coronary artery disease. Continue current medical management. Continue statin therapy. Dementia. Paroxysmal atrial fibrillation, currently in sinus rhythm. Anxiety and depression. Continue Lexapro. Gastrointestinal and deep venous thrombosis prophylaxis. Continue proton pump inhibitor and Eliquis Problems: Consultation Date/Type/Reason Admit Date/Time Feb 24, 2017 at 18:19 Initial Consult Date 02/25/17 [facility] Referring Provider: MEGAN FLORES DO 24 HR Interval Summary Free Text/Dictation ALL NOTED STABLE NO BLEEDING Exam/Review of Systems Vital Signs Vitals Vital Signs Date Time Temp Pulse Resp B/P Pulse Ox O2 Delivery O2 Flow Rate FiO2 02/26/17 07:55 98.2 67 18 122/79 97 02/24/17 18:49 Room Air Intake and Output 02/25/17 02/25/17 02/26/17 14:59 22:59 06:59 Intake Total 580 ml 250 ml Output Total 200 ml Balance 380 ml 250 ml Exam HEENT: Head is normocephalic. NECK: Supple. HEART: Regular rate. LUNGS: Diminished breath sounds at the base. ABDOMEN: Soft. Nontender to palpation. No guarding. EXTREMITIES: Negative for clubbing, cyanosis, or edema. DERMATOLOGIC: No rashes. MUSCULOSKELETAL: No joint effusion. NEUROLOGIC: The patient has left-sided hemiparesis. No change. Results Result Diagram: 02/25/1760502/25/1706 Medications Medications Current Medications Pantoprazole (Protonix Tab) 40 mg DAILY@06 PO Last administered on 02/26/17 06: 52; Admin Dose 40 MG; Start 02/25/17 at 06:00 Polyethylene Glycol (Miralax) 17 gm DAILY PO Last administered on 02/26/17 09: 34; Admin Dose 17 GM; Start 02/25/17 at 09:00 IV Flush (NS 3 ml) 3 ml Q8 IV Last administered on 02/26/17 14:00; Admin Dose 3 ML; Start 02/24/17 at 22:00 Simethicone (Mylicon) 80 mg TID PRN PO DISTENSION/GAS/BLOATING; Start 02/24/17 at 21:00 Zolpidem Tartrate (Ambien) 5 mg HS PRN PO INSOMNIA Last administered on 22:11; Admin Dose 5 MG; Start 02/24/17 at 21:00 Lactulose (Enulose) 20 gm TID PO Last administered on 02/26/17 09:33; Admin Dose 20 GM; Start 02/24/17 at 21:00 Levetiracetam (Keppra) 750 mg TID PO Last administered on 02/26/17 12:54; Admin Dose 750 MG; Start 02/24/17 at 21:00 Lisinopril (Zestril) 5 mg DAILY PO Last administered on 02/26/17 09:34; Admin Dose 5 MG; Start 02/25/17 at 09:00 Meclizine HCl (Antivert) 25 mg DAILY PRN PO VERTIGO Last administered on 09:35; Admin Dose 25 MG; Start 02/24/17 at 21:00 Metoprolol Succinate (Toprol Xl) 12.5 mg BID PO Last administered on 02/26/17 09:34; Admin Dose 12.5 MG; Start 02/24/17 at 21:00 Ondansetron HCl (Zofran Inj) 4 mg Q6H PRN IV NAUSEA AND/OR VOMITING; Start at 21:00 Acetaminophen (Tylenol Tab) 650 mg Q6H PRN PO PAIN AND OR ELEVATED TEMP; Start 02/24/17 at 21:00 Apixaban (Eliquis) 2.5 mg BID PO Last administered on 02/26/17 09:42; Admin Dose 2.5 MG; Start 02/24/17 at 21:00 Aspirin (Aspirin) 81 mg DAILY PO Last administered on 02/26/17 09:33; Admin Dose 81 MG; Start 02/25/17 at 09:00 Atorvastatin Calcium (Lipitor) 80 mg DAILY@21 PO Last administered on 21:50; Admin Dose 80 MG; Start 02/24/17 at 21:00 Clonazepam (Klonopin) 0.25 mg BID PO Last administered on 02/26/17 09:33; Admin Dose 0.25 MG; Start 02/24/17 at 21:00 Gentamicin Sulfate (Gentamicin 0.3% Oph Drop) 1 drop Q4HWA BOTH EYES Last administered on 02/26/17 13:00; Admin Dose 1 DROP; Start 02/24/17 at 21:00 Escitalopram Oxalate (Lexapro) 10 mg QHS PO Last administered on 02/25/17 21: 50; Admin Dose 10 MG; Start 02/24/17 at 21:00 Docusate Sodium (Colace) 100 mg BID PO Last administered on 02/26/17 09:33; Admin Dose 100 MG; Start 02/24/17 at 21:00 Clonidine (Catapres) 0.1 mg Q6H PRN PO SBP > 170; Start 02/24/17 at 21:00 Bisacodyl (Dulcolax Supp) 10 mg DAILY PRN [place] CONSTIPATION Last administered on 02/25/17 18:31; Admin Dose 10 MG; Start 02/25/17 at 04:30 TERRA RANGEL MD Feb 26, 2017 18:34
[2017-02-26 20:00] VITALS: BP 122/63; RESP 18
[2017-02-26] MEDS: ATORVASTATIN 80 MG TAB PO SCH (20:30)
[2017-02-26] MEDS: ESCITALOPRAM 10 MG TAB PO SCH (20:30)
[2017-02-27] MEDS: GENTAMICIN 0.3% 5 ML OPH BOTH EYES SCH ×6 (01:00→20:27)
[2017-02-27 02:17] VITALS: BP 125/68; RESP 18
[2017-02-27] MEDS: PANTOPRAZOLE (EC) 40 MG TAB PO SCH (06:23)
[2017-02-27] MEDS: NACL 0.9% 3 ML SYG IV SCH ×3 (06:23→22:31)
[2017-02-27 07:30] VITALS: BP 108/63; RESP 18
[2017-02-27] MEDS: LEVETIRACETAM 750 MG TAB PO SCH ×3 (08:49→20:27)
[2017-02-27] MEDS: clonAZEPAM 0.5 MG TAB PO SCH ×2 (08:49→20:28)
[2017-02-27] MEDS: DOCUSATE SODIUM 100 MG CAP PO SCH ×2 (08:49→20:27)
[2017-02-27] MEDS: ASPIRIN 81 MG TAB PO SCH (08:49)
[2017-02-27] MEDS: LISINOPRIL 5 MG TAB PO SCH (08:50)
[2017-02-27] MEDS: APIXABAN 5 MG TABLET PO SCH ×2 (08:50→20:27)
[2017-02-27] MEDS: METOPROLOL (XL) 25 MG TAB PO SCH ×2 (08:50→20:28)
[2017-02-27] MEDS: POLYETHYLENE GLYCOL 17 GM PACKET PO SCH (08:50)
[2017-02-27] MEDS: LACTULOSE 30ML CUP PO SCH ×3 (08:51→20:27)
[2017-02-27 08:59] VITALS: BP 99/57; PULSE 78; RESP 16
--- NOTE | 2017-02-27 11:19 | CONS ---
Date/Time of Note Date/Time of Note DATE: 02/27/17 TIME: 11:19 Consult Date/Type/Reason Admit Date/Time Feb 24, 2017 at 18:19 Initial Consult Date 02/25/17 Type of Consultation: [facility] Ordering Provider: MEGAN FLORES DO Objective pulm-cta max/dep Vital Signs Date Time Temp Pulse Resp B/P Pulse Ox O2 Delivery O2 Flow Rate FiO2 02/27/17 08:59 98.0 78 16 99/57 94 Room Air Intake and Output 02/26/17 02/26/17 02/27/17 15:00 23:00 07:00 Intake Total 720 ml 360 ml 810 ml Balance 720 ml 360 ml 810 ml Results/Medications Result Diagram: 02/25/1760502/25/17 0606 Medications Current Medications Pantoprazole (Protonix Tab) 40 mg DAILY@06 PO Last administered on 02/27/17 06: 23; Admin Dose 40 MG; Start 02/25/17 at 06:00 Polyethylene Glycol (Miralax) 17 gm DAILY PO Last administered on 02/27/17 08: 50; Admin Dose 17 GM; Start 02/25/17 at 09:00 IV Flush (NS 3 ml) 3 ml Q8 IV Last administered on 02/27/17 06:23; Admin Dose 3 ML; Start 02/24/17 at 22:00 Simethicone (Mylicon) 80 mg TID PRN PO DISTENSION/GAS/BLOATING; Start 02/24/17 at 21:00 Zolpidem Tartrate (Ambien) 5 mg HS PRN PO INSOMNIA Last administered on 22:11; Admin Dose 5 MG; Start 02/24/17 at 21:00 Lactulose (Enulose) 20 gm TID PO Last administered on 02/27/17 08:51; Admin Dose 20 GM; Start 02/24/17 at 21:00 Levetiracetam (Keppra) 750 mg TID PO Last administered on 02/27/17 08:49; Admin Dose 750 MG; Start 02/24/17 at 21:00 Lisinopril (Zestril) 5 mg DAILY PO Last administered on 02/26/17 09:34; Admin Dose 5 MG; Start 02/25/17 at 09:00 Meclizine HCl (Antivert) 25 mg DAILY PRN PO VERTIGO Last administered on 09:35; Admin Dose 25 MG; Start 02/24/17 at 21:00 Metoprolol Succinate (Toprol Xl) 12.5 mg BID PO Last administered on 02/26/17 20:30; Admin Dose 12.5 MG; Start 02/24/17 at 21:00 Ondansetron HCl (Zofran Inj) 4 mg Q6H PRN IV NAUSEA AND/OR VOMITING; Start at 21:00 Acetaminophen (Tylenol Tab) 650 mg Q6H PRN PO PAIN AND OR ELEVATED TEMP; Start 02/24/17 at 21:00 Apixaban (Eliquis) 2.5 mg BID PO Last administered on 02/27/17 08:50; Admin Dose 2.5 MG; Start 02/24/17 at 21:00 Aspirin (Aspirin) 81 mg DAILY PO Last administered on 02/27/17 08:49; Admin Dose 81 MG; Start 02/25/17 at 09:00 Atorvastatin Calcium (Lipitor) 80 mg DAILY@21 PO Last administered on 02/26/17 20:30; Admin Dose 80 MG; Start 02/24/17 at 21:00 Clonazepam (Klonopin) 0.25 mg BID PO Last administered on 02/27/17 08:49; Admin Dose 0.25 MG; Start 02/24/17 at 21:00 Gentamicin Sulfate (Gentamicin 0.3% Oph Drop) 1 drop Q4HWA BOTH EYES Last administered on 02/27/17 08:51; Admin Dose 1 DROP; Start 02/24/17 at 21:00 Escitalopram Oxalate (Lexapro) 10 mg QHS PO Last administered on 02/26/17 20:30 ; Admin Dose 10 MG; Start 02/24/17 at 21:00 Docusate Sodium (Colace) 100 mg BID PO Last administered on 02/27/17 08:49; Admin Dose 100 MG; Start 02/24/17 at 21:00 Clonidine (Catapres) 0.1 mg Q6H PRN PO SBP > 170; Start 02/24/17 at 21:00 Bisacodyl (Dulcolax Supp) 10 mg DAILY PRN [place] CONSTIPATION Last administered on 8/31/17at 18:31; Admin Dose 10 MG; Start 02/25/17 at 04:30 Assessment/Plan Additional Assessment/Plan Rehab- rehab- 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 Continue rehab, increase activities as tolerated Possible seizure disorder. Hypertension. Urinary tract infection. Coronary artery disease. Dyslipidemia. Paroxysmal atrial fibrillation. Anemia. History of cerebrovascular accident. FARIDEH COOK MD Feb 27, 2017 11:19
--- NOTE | 2017-02-27 12:55 | PN ---
Date/Time of Note Date/Time of Note DATE: 02/27/17 TIME: 12:54 Assessment/Plan VTE Prophylaxis VTE Prophylaxis Intervention: other Lines/Catheters IV Catheter Type (from [facility]): [facility] Urinary Cath still in place: No Assessment/Plan Chief Complaint/Hosp Course Patient is stable. No acute events overnight. No fevers, chills, nausea, vomiting. OBJECTIVE DATA: HEENT: Head is normocephalic. NECK: Supple. HEART: Regular rate. LUNGS: Show diminished breath sounds at the base. ABDOMEN: Soft, nontender to palpation. No rebound or guarding. EXTREMITIES: Negative for clubbing, cyanosis. No edema. DERMATOLOGIC: Clean. No rashes. MUSCULOSKELETAL: No joint effusion. NEUROLOGIC: Unchanged exam. MEDICATIONS: Reviewed. LABORATORY AND DIAGNOSTIC DATA: Reviewed. No new labs. ASSESSMENT AND PLAN: 1. Acute cerebrovascular accident. The patient is currently stable. Continue medical management with Eliquis, aspirin, and Lipitor. 2. Seizure disorder. Continue Keppra. 3. Hypertension. Continue current blood pressure regimen. 4. Coronary artery disease. Continue medical management. 5. Dyslipidemia. Continue statin therapy. 6. Anemia. Monitor H and H levels. 7. History of dementia. 8. Paroxysmal atrial fibrillation. Currently in sinus rhythm. 9. Anxiety and depression. 10. Status post urinary tract infection. 11. Gastrointestinal and deep venous thrombosis prophylaxis. Problems: Exam/Review of Systems Vital Signs Vitals Vital Signs Date Time Temp Pulse Resp B/P Pulse Ox O2 Delivery O2 Flow Rate FiO2 02/27/17 08:59 98.0 78 16 99/57 94 Room Air Intake and Output 02/26/17 02/26/17 02/27/17 15:00 23:00 07:00 Intake Total 720 ml 360 ml 810 ml Balance 720 ml 360 ml 810 ml Results Result Diagram: 02/25/1760502/25/17 0606 Medications Medications Current Medications Pantoprazole (Protonix Tab) 40 mg DAILY@06 PO Last administered on 02/27/17 06: 23; Admin Dose 40 MG; Start 02/25/17 at 06:00 Polyethylene Glycol (Miralax) 17 gm DAILY PO Last administered on 02/27/17 08: 50; Admin Dose 17 GM; Start 02/25/17 at 09:00 IV Flush (NS 3 ml) 3 ml Q8 IV Last administered on 02/27/17 06:23; Admin Dose 3 ML; Start 02/24/17 at 22:00 Simethicone (Mylicon) 80 mg TID PRN PO DISTENSION/GAS/BLOATING; Start 02/24/17 at 21:00 Zolpidem Tartrate (Ambien) 5 mg HS PRN PO INSOMNIA Last administered on 22:11; Admin Dose 5 MG; Start 02/24/17 at 21:00 Lactulose (Enulose) 20 gm TID PO Last administered on 02/27/17 12:09; Admin Dose 20 GM; Start 02/24/17 at 21:00 Levetiracetam (Keppra) 750 mg TID PO Last administered on 02/27/17 12:09; Admin Dose 750 MG; Start 02/24/17 at 21:00 Lisinopril (Zestril) 5 mg DAILY PO Last administered on 02/26/17 09:34; Admin Dose 5 MG; Start 02/25/17 at 09:00 Meclizine HCl (Antivert) 25 mg DAILY PRN PO VERTIGO Last administered on 09:35; Admin Dose 25 MG; Start 02/24/17 at 21:00 Metoprolol Succinate (Toprol Xl) 12.5 mg BID PO Last administered on 02/26/17 20:30; Admin Dose 12.5 MG; Start 02/24/17 at 21:00 Ondansetron HCl (Zofran Inj) 4 mg Q6H PRN IV NAUSEA AND/OR VOMITING; Start at 21:00 Acetaminophen (Tylenol Tab) 650 mg Q6H PRN PO PAIN AND OR ELEVATED TEMP; Start 02/24/17 at 21:00 Apixaban (Eliquis) 2.5 mg BID PO Last administered on 02/27/17 08:50; Admin Dose 2.5 MG; Start 02/24/17 at 21:00 Aspirin (Aspirin) 81 mg DAILY PO Last administered on 02/27/17 08:49; Admin Dose 81 MG; Start 02/25/17 at 09:00 Atorvastatin Calcium (Lipitor) 80 mg DAILY@21 PO Last administered on 02/26/17 20:30; Admin Dose 80 MG; Start 02/24/17 at 21:00 Clonazepam (Klonopin) 0.25 mg BID PO Last administered on 02/27/17 08:49; Admin Dose 0.25 MG; Start 02/24/17 at 21:00 Gentamicin Sulfate (Gentamicin 0.3% Oph Drop) 1 drop Q4HWA BOTH EYES Last administered on 02/27/17 12:10; Admin Dose 1 DROP; Start 02/24/17 at 21:00 Escitalopram Oxalate (Lexapro) 10 mg QHS PO Last administered on 02/26/17 20:30 ; Admin Dose 10 MG; Start 02/24/17 at 21:00 Docusate Sodium (Colace) 100 mg BID PO Last administered on 02/27/17 08:49; Admin Dose 100 MG; Start 02/24/17 at 21:00 Clonidine (Catapres) 0.1 mg Q6H PRN PO SBP > 170; Start 02/24/17 at 21:00 Bisacodyl (Dulcolax Supp) 10 mg DAILY PRN [place] CONSTIPATION Last administered on 02/25/17 18:31; Admin Dose 10 MG; Start 02/25/17 at 04:30 FORTUNATO ALBERTO DO Feb 27, 2017 12:55
[2017-02-27 14:00] VITALS: BP 105/64; RESP 18
--- NOTE | 2017-02-27 18:55 | CONS ---
Date/Time of Note Date/Time of Note DATE: 02/27/17 TIME: 18:55 Assessment/Plan Assessment/Plan Chief Complaint/Hosp Course Hypercoagulable state Acute cerebrovascular accident. The patient will continue current medical management of Eliquis, aspirin, and Lipitor. ANEMIA- COMPLEX, MULTIFACTORIAL LOOKS COMPENSATED AT PRESENT CONT TO MONITR Seizure disorder. Continue Keppra. Hypertension. Continue current blood pressure regimen. This is status post urinary tract infection. Coronary artery disease. Continue current medical management. Continue statin therapy. Dementia. Paroxysmal atrial fibrillation, currently in sinus rhythm. Anxiety and depression. Continue Lexapro. Gastrointestinal and deep venous thrombosis prophylaxis. Continue proton pump inhibitor and Eliquis Problems: Consultation Date/Type/Reason Admit Date/Time Feb 24, 2017 at 18:19 Initial Consult Date 02/25/17 Type of Consultation: [facility] Referring Provider: MEGAN FLORES DO 24 HR Interval Summary Free Text/Dictation D/W SON NO NEW EVENTS STABLE Exam/Review of Systems Vital Signs Vitals Vital Signs Date Time Temp Pulse Resp B/P Pulse Ox O2 Delivery O2 Flow Rate FiO2 02/27/17 14:00 98.3 70 18 105/64 96 02/27/17 08:59 Room Air Intake and Output 02/26/17 02/26/17 02/27/17 15:00 23:00 07:00 Intake Total 720 ml 360 ml 810 ml Balance 720 ml 360 ml 810 ml Exam HEENT: Head is normocephalic. NECK: Supple. HEART: Regular rate. LUNGS: Diminished breath sounds at the base. ABDOMEN: Soft. Nontender to palpation. No guarding. EXTREMITIES: Negative for clubbing, cyanosis, or edema. DERMATOLOGIC: No rashes. MUSCULOSKELETAL: No joint effusion. NEUROLOGIC: The patient has left-sided hemiparesis. No change. Results Result Diagram: 02/25/1760502/25/17605 Medications Medications Current Medications Pantoprazole (Protonix Tab) 40 mg DAILY@06 PO Last administered on 02/27/17 06: 23; Admin Dose 40 MG; Start 02/25/17 at 06:00 Polyethylene Glycol (Miralax) 17 gm DAILY PO Last administered on 02/27/17 08: 50; Admin Dose 17 GM; Start 02/25/17 at 09:00 IV Flush (NS 3 ml) 3 ml Q8 IV Last administered on 02/27/17 14:00; Admin Dose 3 ML; Start 02/24/17 at 22:00 Simethicone (Mylicon) 80 mg TID PRN PO DISTENSION/GAS/BLOATING; Start 02/24/17 at 21:00 Zolpidem Tartrate (Ambien) 5 mg HS PRN PO INSOMNIA Last administered on 22:11; Admin Dose 5 MG; Start 02/24/17 at 21:00 Lactulose (Enulose) 20 gm TID PO Last administered on 02/27/17 12:09; Admin Dose 20 GM; Start 02/24/17 at 21:00 Levetiracetam (Keppra) 750 mg TID PO Last administered on 02/27/17 12:09; Admin Dose 750 MG; Start 02/24/17 at 21:00 Lisinopril (Zestril) 5 mg DAILY PO Last administered on 02/26/17 09:34; Admin Dose 5 MG; Start 02/25/17 at 09:00 Meclizine HCl (Antivert) 25 mg DAILY PRN PO VERTIGO Last administered on 09:35; Admin Dose 25 MG; Start 02/24/17 at 21:00 Metoprolol Succinate (Toprol Xl) 12.5 mg BID PO Last administered on 02/26/17 20:30; Admin Dose 12.5 MG; Start 02/24/17 at 21:00 Ondansetron HCl (Zofran Inj) 4 mg Q6H PRN IV NAUSEA AND/OR VOMITING; Start at 21:00 Acetaminophen (Tylenol Tab) 650 mg Q6H PRN PO PAIN AND OR ELEVATED TEMP; Start 02/24/17 at 21:00 Apixaban (Eliquis) 2.5 mg BID PO Last administered on 02/27/17 08:50; Admin Dose 2.5 MG; Start 02/24/17 at 21:00 Aspirin (Aspirin) 81 mg DAILY PO Last administered on 02/27/17 08:49; Admin Dose 81 MG; Start 02/25/17 at 09:00 Atorvastatin Calcium (Lipitor) 80 mg DAILY@21 PO Last administered on 02/26/17 20:30; Admin Dose 80 MG; Start 02/24/17 at 21:00 Clonazepam (Klonopin) 0.25 mg BID PO Last administered on 02/27/17 08:49; Admin Dose 0.25 MG; Start 02/24/17 at 21:00 Gentamicin Sulfate (Gentamicin 0.3% Oph Drop) 1 drop Q4HWA BOTH EYES Last administered on 02/27/17 17:44; Admin Dose 1 DROP; Start 02/24/17 at 21:00 Escitalopram Oxalate (Lexapro) 10 mg QHS PO Last administered on 02/26/17 20:30 ; Admin Dose 10 MG; Start 02/24/17 at 21:00 Docusate Sodium (Colace) 100 mg BID PO Last administered on 02/27/17 08:49; Admin Dose 100 MG; Start 02/24/17 at 21:00 Clonidine (Catapres) 0.1 mg Q6H PRN PO SBP > 170; Start 02/24/17 at 21:00 Bisacodyl (Dulcolax Supp) 10 mg DAILY PRN [place] CONSTIPATION Last administered on 02/25/17 18:31; Admin Dose 10 MG; Start 02/25/17 at 04:30 TERRA RANGEL MD Feb 27, 2017 18:55
[2017-02-27 20:00] VITALS: BP 106/70; RESP 18
[2017-02-27] MEDS: ESCITALOPRAM 10 MG TAB PO SCH (20:28)
[2017-02-27] MEDS: ATORVASTATIN 80 MG TAB PO SCH (20:28)
[2017-02-28] MEDS: GENTAMICIN 0.3% 5 ML OPH BOTH EYES SCH ×6 (01:00→21:11)
[2017-02-28 02:00] VITALS: BP 118/67; RESP 18
[2017-02-28] MEDS: NACL 0.9% 3 ML SYG IV SCH ×3 (05:29→21:15)
[2017-02-28] MEDS: PANTOPRAZOLE (EC) 40 MG TAB PO SCH (05:29)
[2017-02-28 07:30] VITALS: BP 102/56; RESP 20
[2017-02-28] MEDS: ASPIRIN 81 MG TAB PO SCH (08:45)
[2017-02-28] MEDS: DOCUSATE SODIUM 100 MG CAP PO SCH ×2 (08:45→21:11)
[2017-02-28] MEDS: APIXABAN 5 MG TABLET PO SCH ×2 (08:45→21:12)
[2017-02-28] MEDS: LEVETIRACETAM 750 MG TAB PO SCH ×3 (08:45→21:12)
[2017-02-28] MEDS: LACTULOSE 30ML CUP PO SCH ×3 (08:47→21:12)
[2017-02-28] MEDS: POLYETHYLENE GLYCOL 17 GM PACKET PO SCH (08:47)
[2017-02-28] MEDS: METOPROLOL (XL) 25 MG TAB PO SCH ×2 (08:48→21:00)
[2017-02-28] MEDS: clonAZEPAM 0.5 MG TAB PO SCH ×2 (08:48→21:12)
[2017-02-28] MEDS: LISINOPRIL 5 MG TAB PO SCH (08:48)
[2017-02-28 08:49] VITALS: BP 91/64; PULSE 64; RESP 16
[2017-02-28 08:55] VITALS: BP 97/64; PULSE 66; RESP 18
--- NOTE | 2017-02-28 10:38 | PN ---
Date/Time of Note Date/Time of Note DATE: 02/28/17 TIME: 10:37 Assessment/Plan VTE Prophylaxis VTE Prophylaxis Intervention: other Lines/Catheters IV [facility] Type [facility]from [facility] Urinary Cath still in place: No Assessment/Plan Chief Complaint/Hosp Course Patient is stable. No acute events overnight. No fevers, chills, nausea, vomiting. slightly hypotensive but asymptomatic OBJECTIVE DATA: HEENT: Head is normocephalic. NECK: Supple. HEART: Regular rate. LUNGS: Show diminished breath sounds at the base. ABDOMEN: Soft, nontender to palpation. No rebound or guarding. EXTREMITIES: Negative for clubbing, cyanosis. No edema. DERMATOLOGIC: Clean. No rashes. MUSCULOSKELETAL: No joint effusion. NEUROLOGIC: Unchanged exam. MEDICATIONS: Reviewed. LABORATORY AND DIAGNOSTIC DATA: Reviewed. No new labs. ASSESSMENT AND PLAN: 1. Acute cerebrovascular accident. The patient is currently stable. Continue medical management with Eliquis, aspirin, and Lipitor. 2. Seizure disorder. Continue Keppra. 3. Hypertension. will decrease lisinopril dose 4. Coronary artery disease. Continue medical management. 5. Dyslipidemia. Continue statin therapy. 6. Anemia. Monitor H and H levels. 7. History of dementia. 8. Paroxysmal atrial fibrillation. Currently in sinus rhythm. 9. Anxiety and depression. 10. Status post urinary tract infection. 11. Gastrointestinal and deep venous thrombosis prophylaxis. Problems: Exam/Review of Systems Vital Signs Vitals Vital Signs Date Time Temp Pulse Resp B/P Pulse Ox O2 Delivery O2 Flow Rate FiO2 02/28/17 08:55 66 18 97/64 96 Room Air 02/28/17 07:30 97.9 Intake and Output 02/27/17 02/27/17 02/28/17 15:00 23:00 07:00 Intake Total 1060 ml 500 ml Output Total 550 ml Balance 510 ml 500 ml Results Result Diagram: 02/25/1760502/25/17 0606 Medications Medications Current Medications Pantoprazole (Protonix Tab) 40 mg DAILY@06 PO Last administered on 02/28/17 05: 29; Admin Dose 40 MG; Start 02/25/17 at 06:00 Polyethylene Glycol (Miralax) 17 gm DAILY PO Last administered on 02/27/17 08: 50; Admin Dose 17 GM; Start 02/25/17 at 09:00 IV Flush (NS 3 ml) 3 ml Q8 IV Last administered on 02/28/17 05:29; Admin Dose 3 ML; Start 02/24/17 at 22:00 Simethicone (Mylicon) 80 mg TID PRN PO DISTENSION/GAS/BLOATING; Start 02/24/17 at 21:00 Zolpidem Tartrate (Ambien) 5 mg HS PRN PO INSOMNIA Last administered on 22:11; Admin Dose 5 MG; Start 02/24/17 at 21:00 Lactulose (Enulose) 20 gm TID PO Last administered on 02/27/17 20:27; Admin Dose 20 GM; Start 02/24/17 at 21:00 Levetiracetam (Keppra) 750 mg TID PO Last administered on 02/28/17 08:45; Admin Dose 750 MG; Start 02/24/17 at 21:00 Lisinopril (Zestril) 5 mg DAILY PO Last administered on 02/26/17 09:34; Admin Dose 5 MG; Start 02/25/17 at 09:00 Meclizine HCl (Antivert) 25 mg DAILY PRN PO VERTIGO Last administered on 09:35; Admin Dose 25 MG; Start 02/24/17 at 21:00 Metoprolol Succinate (Toprol Xl) 12.5 mg BID PO Last administered on 02/27/17 20:28; Admin Dose 12.5 MG; Start 02/24/17 at 21:00 Ondansetron HCl (Zofran Inj) 4 mg Q6H PRN IV NAUSEA AND/OR VOMITING; Start at 21:00 Acetaminophen (Tylenol Tab) 650 mg Q6H PRN PO PAIN AND OR ELEVATED TEMP; Start 02/24/17 at 21:00 Apixaban (Eliquis) 2.5 mg BID PO Last administered on 02/28/17 08:45; Admin Dose 2.5 MG; Start 02/24/17 at 21:00 Aspirin (Aspirin) 81 mg DAILY PO Last administered on 02/28/17 08:45; Admin Dose 81 MG; Start 02/25/17 at 09:00 Atorvastatin Calcium (Lipitor) 80 mg DAILY@21 PO Last administered on 02/27/17 20:28; Admin Dose 80 MG; Start 02/24/17 at 21:00 Clonazepam (Klonopin) 0.25 mg BID PO Last administered on 02/27/17 20:28; Admin Dose 0.25 MG; Start 02/24/17 at 21:00 Gentamicin Sulfate (Gentamicin 0.3% Oph Drop) 1 drop Q4HWA BOTH EYES Last administered on 02/28/17 08:46; Admin Dose 1 DROP; Start 02/24/17 at 21:00 Escitalopram Oxalate (Lexapro) 10 mg QHS PO Last administered on 02/27/17 20:28 ; Admin Dose 10 MG; Start 02/24/17 at 21:00 Docusate Sodium (Colace) 100 mg BID PO Last administered on 02/28/17 08:45; Admin Dose 100 MG; Start 02/24/17 at 21:00 Clonidine (Catapres) 0.1 mg Q6H PRN PO SBP > 170; Start 02/24/17 at 21:00 Bisacodyl (Dulcolax Supp) 10 mg DAILY PRN [place] CONSTIPATION Last administered on 02/25/17 18:31; Admin Dose 10 MG; Start 02/25/17 at 04:30 FORTUNATO ALBERTO DO Feb 28, 2017 10:38
[2017-02-28 19:48] VITALS: BP 90/53; RESP 20
[2017-02-28] MEDS: ESCITALOPRAM 10 MG TAB PO SCH (21:13)
[2017-02-28] MEDS: ATORVASTATIN 80 MG TAB PO SCH (21:13)
[2017-02-28 22:00] VITALS: BP 98/56; PULSE 79; RESP 18
--- NOTE | 2017-02-28 22:27 | CONS ---
Date/Time of Note Date/Time of Note DATE: 02/28/17 TIME: 22:26 Assessment/Plan Assessment/Plan Chief Complaint/Hosp Course Hypercoagulable state Acute cerebrovascular accident. The patient will continue current medical management of Eliquis, aspirin, and Lipitor. ANEMIA- COMPLEX, MULTIFACTORIAL LOOKS COMPENSATED AT PRESENT CONT TO MONITR Seizure disorder. Continue Keppra. Hypertension. Continue current blood pressure regimen. This is status post urinary tract infection. Coronary artery disease. Continue current medical management. Continue statin therapy. Dementia. Paroxysmal atrial fibrillation, currently in sinus rhythm. Anxiety and depression. Continue Lexapro. Gastrointestinal and deep venous thrombosis prophylaxis. Continue proton pump inhibitor and Eliquis Problems: Consultation Date/Type/Reason Admit Date/Time Feb 24, 2017 at 18:19 Initial Consult Date 02/25/17 Type of Consultation: [facility] Referring Provider: MEGAN FLORES DO 24 HR Interval Summary Free Text/Dictation STABLE D/W RN NO BLEEDING ON ELIQUIS Exam/Review of Systems Vital Signs Vitals Vital Signs Date Time Temp Pulse Resp B/P Pulse Ox O2 Delivery O2 Flow Rate FiO2 02/28/17 19:48 97.7 78 20 90/53 96 02/28/17 08:55 Room Air Intake and Output 02/27/17 02/27/17 02/28/17 15:00 23:00 07:00 Intake Total 1060 ml 500 ml Output Total 550 ml Balance 510 ml 500 ml Exam HEENT: Head is normocephalic. NECK: Supple. HEART: Regular rate. LUNGS: Diminished breath sounds at the base. ABDOMEN: Soft. Nontender to palpation. No guarding. EXTREMITIES: Negative for clubbing, cyanosis, or edema. DERMATOLOGIC: No rashes. MUSCULOSKELETAL: No joint effusion. NEUROLOGIC: The patient has left-sided hemiparesis. No change. Results Result Diagram: 02/25/1760502/25/17 06 Medications Medications Current Medications Pantoprazole (Protonix Tab) 40 mg DAILY@06 PO Last administered on 02/28/17 05: 29; Admin Dose 40 MG; Start 02/25/17 at 06:00 Polyethylene Glycol (Miralax) 17 gm DAILY PO Last administered on 02/27/17 08: 50; Admin Dose 17 GM; Start 02/25/17 at 09:00 IV Flush (NS 3 ml) 3 ml Q8 IV Last administered on 02/28/17 21:15; Admin Dose 3 ML; Start 02/24/17 at 22:00 Simethicone (Mylicon) 80 mg TID PRN PO DISTENSION/GAS/BLOATING; Start 02/24/17 at 21:00 Zolpidem Tartrate (Ambien) 5 mg HS PRN PO INSOMNIA Last administered on 22:11; Admin Dose 5 MG; Start 02/24/17 at 21:00 Lactulose (Enulose) 20 gm TID PO Last administered on 02/28/17 21:12; Admin Dose 20 GM; Start 02/24/17 at 21:00 Meclizine HCl (Antivert) 25 mg DAILY PRN PO VERTIGO Last administered on 09:35; Admin Dose 25 MG; Start 02/24/17 at 21:00 Metoprolol Succinate (Toprol Xl) 12.5 mg BID PO Last administered on 02/27/17 20:28; Admin Dose 12.5 MG; Start 02/24/17 at 21:00 Ondansetron HCl (Zofran Inj) 4 mg Q6H PRN IV NAUSEA AND/OR VOMITING; Start at 21:00 Acetaminophen (Tylenol Tab) 650 mg Q6H PRN PO PAIN AND OR ELEVATED TEMP; Start 02/24/17 at 21:00 Apixaban (Eliquis) 2.5 mg BID PO Last administered on 02/28/17 21:12; Admin Dose 2.5 MG; Start 02/24/17 at 21:00 Aspirin (Aspirin) 81 mg DAILY PO Last administered on 02/28/17 08:45; Admin Dose 81 MG; Start 02/25/17 at 09:00 Atorvastatin Calcium (Lipitor) 80 mg DAILY@21 PO Last administered on 02/28/17 21:13; Admin Dose 80 MG; Start 02/24/17 at 21:00 Clonazepam (Klonopin) 0.25 mg BID PO Last administered on 02/28/17 21:12; Admin Dose 0.25 MG; Start 02/24/17 at 21:00 Gentamicin Sulfate (Gentamicin 0.3% Oph Drop) 1 drop Q4HWA BOTH EYES Last administered on 9/3/17at 21:11; Admin Dose 1 DROP; Start 02/24/17 at 21:00 Escitalopram Oxalate (Lexapro) 10 mg QHS PO Last administered on 02/28/17 21:13 ; Admin Dose 10 MG; Start 02/24/17 at 21:00 Docusate Sodium (Colace) 100 mg BID PO Last administered on 02/28/17 21:11; Admin Dose 100 MG; Start 02/24/17 at 21:00 Clonidine (Catapres) 0.1 mg Q6H PRN PO SBP > 170; Start 02/24/17 at 21:00 Bisacodyl (Dulcolax Supp) 10 mg DAILY PRN [place] CONSTIPATION Last administered on 02/25/17 18:31; Admin Dose 10 MG; Start 02/25/17 at 04:30 Lisinopril (Zestril) 2.5 mg DAILY PO ; Start 03/01/17 at 09:00 Levetiracetam (Keppra Liquid) 750 mg TID PO ; Start 03/01/17 at 09:00 TERRA RANGEL MD Feb 28, 2017 22:27
[2017-02-28] MEDS: LEVETIRACETAM (100 MG/ML) 5ML CUP PO SCH (23:53)
[2017-03-01] MEDS: GENTAMICIN 0.3% 5 ML OPH BOTH EYES SCH ×6 (01:28→20:03)
[2017-03-01 02:17] VITALS: BP 108/57; RESP 20
[2017-03-01] MEDS: PANTOPRAZOLE (EC) 40 MG TAB PO SCH (05:20)
[2017-03-01] MEDS: NACL 0.9% 3 ML SYG IV SCH ×3 (05:28→20:08)
[2017-03-01] MEDS: BISACODYL 10 MG SUPP PR PRN (06:47)
[2017-03-01 07:30] VITALS: BP 132/85; RESP 20
[2017-03-01] MEDS: LEVETIRACETAM (100 MG/ML) 5ML CUP PO SCH ×3 (08:40→20:04)
[2017-03-01] MEDS: METOPROLOL (XL) 25 MG TAB PO SCH ×2 (08:45→20:05)
[2017-03-01] MEDS: clonAZEPAM 0.5 MG TAB PO SCH ×2 (08:45→20:03)
[2017-03-01] MEDS: ASPIRIN 81 MG TAB PO SCH (08:45)
[2017-03-01] MEDS: APIXABAN 5 MG TABLET PO SCH ×2 (08:45→20:03)
[2017-03-01] MEDS: LISINOPRIL 5 MG TAB PO SCH (08:49)
[2017-03-01] MEDS ORDERED: LEVETIRACETAM (100 MG/ML) 5ML CUP PO SCH (09:00)
[2017-03-01] MEDS: DOCUSATE SODIUM 100 MG CAP PO SCH ×2 (09:00→20:03)
[2017-03-01] MEDS: LACTULOSE 30ML CUP PO SCH ×3 (09:00→20:04)
[2017-03-01] MEDS: POLYETHYLENE GLYCOL 17 GM PACKET PO SCH (09:00)
--- NOTE | 2017-03-01 09:14 | CONS ---
Date/Time of Note Date/Time of Note DATE: 03/01/17 TIME: 09:13 Consult Date/Type/Reason Admit Date/Time Feb 24, 2017 at 18:19 Initial Consult Date 02/25/17 Type of Consultation: [facility] Ordering Provider: MEGAN FLORES DO Objective Vital Signs Date Time Temp Pulse Resp B/P Pulse Ox O2 Delivery O2 Flow Rate FiO2 03/01/17 02:17 98.4 85 20 108/57 94 02/28/17 22:00 Room Air Intake and Output 02/28/17 02/28/17 03/01/17 15:00 23:00 07:00 Intake Total 1020 ml 430 ml Output Total 1 ml Balance 1019 ml 430 ml INTERDISCIPLINARY TEAM CONFERENCE BOWEL- Cont BLADDER-incont SKIN- intact OT- DRESSING-dep BATHING-dep TOILETING-dep PT- BED MOBILITY-dep TRANSFERS-dep AMBULATION-UA W.C. MOBILITY-max 20 feet SPEECH- COGNITION-mod DYPHAGIA-puree with thin A/P- Interdisciplinary team conference held today. Please see interdisciplinary sheet. Working toward d.c. on 03/12 with post discharge follow up of physical therapy, occupational therapy. Results/Medications Result Diagram: 02/25/17 0606 02/25/17 0606 Medications Current Medications Pantoprazole (Protonix Tab) 40 mg DAILY@06 PO Last administered on 03/01/17 05: 20; Admin Dose 40 MG; Start 02/25/17 at 06:00 Polyethylene Glycol (Miralax) 17 gm DAILY PO Last administered on 02/27/17 08: 50; Admin Dose 17 GM; Start 02/25/17 at 09:00 IV Flush (NS 3 ml) 3 ml Q8 IV Last administered on 03/01/17 05:28; Admin Dose 3 ML; Start 02/24/17 at 22:00 Simethicone (Mylicon) 80 mg TID PRN PO DISTENSION/GAS/BLOATING Last administered on 03/01/17 03:01; Admin Dose 80 MG; Start 02/24/17 at 21:00 Zolpidem Tartrate (Ambien) 5 mg HS PRN PO INSOMNIA Last administered on 22:11; Admin Dose 5 MG; Start 02/24/17 at 21:00 Lactulose (Enulose) 20 gm TID PO Last administered on 02/28/17 21:12; Admin Dose 20 GM; Start 02/24/17 at 21:00 Meclizine HCl (Antivert) 25 mg DAILY PRN PO VERTIGO Last administered on 09:35; Admin Dose 25 MG; Start 02/24/17 at 21:00 Metoprolol Succinate (Toprol Xl) 12.5 mg BID PO Last administered on 03/01/17 08:45; Admin Dose 12.5 MG; Start 02/24/17 at 21:00 Ondansetron HCl (Zofran Inj) 4 mg Q6H PRN IV NAUSEA AND/OR VOMITING; Start at 21:00 Acetaminophen (Tylenol Tab) 650 mg Q6H PRN PO PAIN AND OR ELEVATED TEMP; Start 02/24/17 at 21:00 Apixaban (Eliquis) 2.5 mg BID PO Last administered on 03/01/17 08:45; Admin Dose 2.5 MG; Start 02/24/17 at 21:00 Aspirin (Aspirin) 81 mg DAILY PO Last administered on 03/01/17 08:45; Admin Dose 81 MG; Start 02/25/17 at 09:00 Atorvastatin Calcium (Lipitor) 80 mg DAILY@21 PO Last administered on 02/28/17 21:13; Admin Dose 80 MG; Start 02/24/17 at 21:00 Clonazepam (Klonopin) 0.25 mg BID PO Last administered on 03/01/17 08:45; Admin Dose 0.25 MG; Start 02/24/17 at 21:00 Gentamicin Sulfate (Gentamicin 0.3% Oph Drop) 1 drop Q4HWA BOTH EYES Last administered on 03/01/17 08:39; Admin Dose 1 DROP; Start 02/24/17 at 21:00 Escitalopram Oxalate (Lexapro) 10 mg QHS PO Last administered on 02/28/17 21:13 ; Admin Dose 10 MG; Start 02/24/17 at 21:00 Docusate Sodium (Colace) 100 mg BID PO Last administered on 02/28/17 21:11; Admin Dose 100 MG; Start 02/24/17 at 21:00 Clonidine (Catapres) 0.1 mg Q6H PRN PO SBP > 170; Start 02/24/17 at 21:00 Bisacodyl (Dulcolax Supp) 10 mg DAILY PRN [place] CONSTIPATION Last administered on 03/01/17 06:47; Admin Dose 10 MG; Start 02/25/17 at 04:30 Lisinopril (Zestril) 2.5 mg DAILY PO Last administered on 03/01/17 08:49; Admin Dose 2.5 MG; Start 03/01/17 at 09:00 Levetiracetam (Keppra Liquid) 750 mg TID PO Last administered on 03/01/17 08:40 ; Admin Dose 750 MG; Start 02/28/17 at 23:00 FARIDEH COOK MD Mar 01, 2017 09:14
--- NOTE | 2017-03-01 09:29 | PN ---
DATE: 03/01/2017 SUBJECTIVE DATA: Patient is stable. No events overnight. No fevers, chills, nausea, vomiting. OBJECTIVE DATA: VITAL SIGNS: Blood pressure is 108/56, respirations 20, pulse 75, temperature 98.4. HEENT: Head is normocephalic. NECK: Supple. HEART: Regular rate. LUNGS: Diminished breath sounds at the base. ABDOMEN: Soft, nontender to palpation. No rebound or guarding. EXTREMITIES: Negative for clubbing, cyanosis. No edema. DERMATOLOGIC: Clean. No rashes. MUSCULOSKELETAL: No joint effusion. NEUROLOGIC: No change in exam. MEDICATIONS: The patient's medications have been reviewed. LABORATORY DATA: Reviewed. ASSESSMENT AND PLAN: 1. Acute cerebrovascular accident. The patient is currently stable. Continue current medical management with Eliquis, aspirin, and Lipitor. 2. Seizure disorder. Continue Keppra. 3. Hypertension. Continue current blood pressure regimen. 4. Coronary artery disease. Continue medical management. 5. Dyslipidemia. Continue statin therapy. 6. Anemia. Monitor hemoglobin and hematocrit levels. 7. History of dementia. 8. Paroxysmal atrial fibrillation, currently in sinus rhythm. 9. Depression. 10. Status post urinary tract infection. 11. Gastrointestinal and deep venous thrombosis prophylaxis. Dictated By: Derrick Bloom DO /anders/cortez /Document#: [id number]
[2017-03-01 14:00] VITALS: BP 107/55; RESP 18
--- NOTE | 2017-03-01 16:23 | CONS ---
Date/Time of Note Date/Time of Note DATE: 03/01/17 TIME: 16:23 Assessment/Plan Assessment/Plan Chief Complaint/Hosp Course Hypercoagulable state Acute cerebrovascular accident. The patient will continue current medical management of Eliquis, aspirin, and Lipitor. ANEMIA- COMPLEX, MULTIFACTORIAL LOOKS COMPENSATED AT PRESENT CONT TO MONITR Seizure disorder. Continue Keppra. Hypertension. Continue current blood pressure regimen. This is status post urinary tract infection. Coronary artery disease. Continue current medical management. Continue statin therapy. Dementia. Paroxysmal atrial fibrillation, currently in sinus rhythm. Anxiety and depression. Continue Lexapro. Gastrointestinal and deep venous thrombosis prophylaxis. Continue proton pump inhibitor and Eliquis Problems: Consultation Date/Type/Reason Admit Date/Time Feb 24, 2017 at 18:19 Initial Consult Date 02/25/17 Type of Consultation: [facility] Referring Provider: MEGAN FLORES DO 24 HR Interval Summary Free Text/Dictation ALL NOTED STABLE Exam/Review of Systems Vital Signs Vitals Vital Signs Date Time Temp Pulse Resp B/P Pulse Ox O2 Delivery O2 Flow Rate FiO2 03/01/17 14:00 97.9 79 18 107/55 95 02/28/17 22:00 Room Air Intake and Output 02/28/17 02/28/17 03/01/17 15:00 23:00 07:00 Intake Total 1020 ml 430 ml Output Total 1 ml Balance 1019 ml 430 ml Exam HEENT: Head is normocephalic. NECK: Supple. HEART: Regular rate. LUNGS: Diminished breath sounds at the base. ABDOMEN: Soft. Nontender to palpation. No guarding. EXTREMITIES: Negative for clubbing, cyanosis, or edema. DERMATOLOGIC: No rashes. MUSCULOSKELETAL: No joint effusion. NEUROLOGIC: The patient has left-sided hemiparesis. No change. Results Result Diagram: 02/25/1760502/25/17 0606 Medications Medications Current Medications Pantoprazole (Protonix Tab) 40 mg DAILY@06 PO Last administered on 03/01/17 05: 20; Admin Dose 40 MG; Start 02/25/17 at 06:00 Polyethylene Glycol (Miralax) 17 gm DAILY PO Last administered on 02/27/17 08: 50; Admin Dose 17 GM; Start 02/25/17 at 09:00 IV Flush (NS 3 ml) 3 ml Q8 IV Last administered on 03/01/17 05:28; Admin Dose 3 ML; Start 02/24/17 at 22:00 Simethicone (Mylicon) 80 mg TID PRN PO DISTENSION/GAS/BLOATING Last administered on 03/01/17 03:01; Admin Dose 80 MG; Start 02/24/17 at 21:00 Zolpidem Tartrate (Ambien) 5 mg HS PRN PO INSOMNIA Last administered on 22:11; Admin Dose 5 MG; Start 02/24/17 at 21:00 Lactulose (Enulose) 20 gm TID PO Last administered on 02/28/17 21:12; Admin Dose 20 GM; Start 02/24/17 at 21:00 Meclizine HCl (Antivert) 25 mg DAILY PRN PO VERTIGO Last administered on 09:35; Admin Dose 25 MG; Start 02/24/17 at 21:00 Metoprolol Succinate (Toprol Xl) 12.5 mg BID PO Last administered on 03/01/17 08:45; Admin Dose 12.5 MG; Start 02/24/17 at 21:00 Ondansetron HCl (Zofran Inj) 4 mg Q6H PRN IV NAUSEA AND/OR VOMITING; Start at 21:00 Acetaminophen (Tylenol Tab) 650 mg Q6H PRN PO PAIN AND OR ELEVATED TEMP; Start 02/24/17 at 21:00 Apixaban (Eliquis) 2.5 mg BID PO Last administered on 03/01/17 08:45; Admin Dose 2.5 MG; Start 02/24/17 at 21:00 Aspirin (Aspirin) 81 mg DAILY PO Last administered on 03/01/17 08:45; Admin Dose 81 MG; Start 02/25/17 at 09:00 Atorvastatin Calcium (Lipitor) 80 mg DAILY@21 PO Last administered on 02/28/17 21:13; Admin Dose 80 MG; Start 02/24/17 at 21:00 Clonazepam (Klonopin) 0.25 mg BID PO Last administered on 03/01/17 08:45; Admin Dose 0.25 MG; Start 02/24/17 at 21:00 Gentamicin Sulfate (Gentamicin 0.3% Oph Drop) 1 drop Q4HWA BOTH EYES Last administered on 03/01/17 13:16; Admin Dose 1 DROP; Start 02/24/17 at 21:00 Escitalopram Oxalate (Lexapro) 10 mg QHS PO Last administered on 02/28/17 21:13 ; Admin Dose 10 MG; Start 02/24/17 at 21:00 Docusate Sodium (Colace) 100 mg BID PO Last administered on 02/28/17 21:11; Admin Dose 100 MG; Start 02/24/17 at 21:00 Clonidine (Catapres) 0.1 mg Q6H PRN PO SBP > 170; Start 02/24/17 at 21:00 Bisacodyl (Dulcolax Supp) 10 mg DAILY PRN [place] CONSTIPATION Last administered on 03/01/17 06:47; Admin Dose 10 MG; Start 02/25/17 at 04:30 Lisinopril (Zestril) 2.5 mg DAILY PO Last administered on 03/01/17 08:49; Admin Dose 2.5 MG; Start 03/01/17 at 09:00 Levetiracetam (Keppra Liquid) 750 mg TID PO Last administered on 03/01/17 08:40 ; Admin Dose 750 MG; Start 02/28/17 at 23:00 TERRA RANGEL MD Mar 01, 2017 16:23
[2017-03-01 19:45] VITALS: BP 110/60; RESP 18
[2017-03-01] MEDS: ATORVASTATIN 80 MG TAB PO SCH (20:03)
[2017-03-01] MEDS: ESCITALOPRAM 10 MG TAB PO SCH (20:03)
[2017-03-02] MEDS: GENTAMICIN 0.3% 5 ML OPH BOTH EYES SCH ×6 (01:00→21:04)
[2017-03-02] MEDS: NACL 0.9% 3 ML SYG IV SCH ×3 (06:00→21:06)
[2017-03-02] MEDS: PANTOPRAZOLE (EC) 40 MG TAB PO SCH (06:24)
[2017-03-02 06:38] LABS: BASOPHIL # 0.1 10^3/ul (0.0-0.1); EOSINOPHILS # 0.1 10^3/ul (0.0-0.5); EOSINOPHILS % 1.5 % (0.0-7.0); HEMATOCRIT 34.7 % (37.0-47.0); HEMOGLOBIN 10.8 g/dl (12.0-16.0); LYMPHOCYTES # 2.7 10^3/ul (0.8-2.9); LYMPHOCYTES % 33.8 % (15.0-51.0); MEAN CORPUSCULAR HEMOGLOBIN 28.1 pg (29.0-33.0); MEAN CORPUSCULAR HGB CONC 31.1 g/dl (32.0-37.0); MEAN CORPUSCULAR VOLUME 90.1 fl (82.0-101.0); MEAN PLATELET VOLUME 10.2 fl (7.4-10.4); MONOCYTE # 0.6 10^3/ul (0.3-0.9); MONOCYTES % 7.9 % (0.0-11.0); NEUTROPHILS % 55.1 % (39.0-77.0); PLATELET COUNT 390 10^3/UL (140-415); RED BLOOD COUNT 3.85 10^6/ul (4.20-5.40); RED CELL DISTRIBUTION WIDTH 14.3 % (11.5-14.5)
[2017-03-02 07:15] LABS: CALCIUM 9.2 mg/dl (8.4-10.2); CREATININE 0.61 mg/dl (0.44-1.00); PHOSPHORUS 3.3 mg/dl (2.5-4.9); POTASSIUM 4.3 mmol/L (3.5-5.1)
[2017-03-02 08:00] VITALS: BP 112/66; RESP 18
[2017-03-02] MEDS: LEVETIRACETAM (100 MG/ML) 5ML CUP PO SCH ×3 (08:41→21:06)
[2017-03-02] MEDS: POLYETHYLENE GLYCOL 17 GM PACKET PO SCH (08:41)
[2017-03-02] MEDS: LACTULOSE 30ML CUP PO SCH ×3 (08:42→21:06)
[2017-03-02] MEDS: ASPIRIN 81 MG TAB PO SCH (08:43)
[2017-03-02] MEDS: LISINOPRIL 5 MG TAB PO SCH (08:43)
[2017-03-02] MEDS: clonAZEPAM 0.5 MG TAB PO SCH ×2 (08:43→21:04)
[2017-03-02] MEDS: METOPROLOL (XL) 25 MG TAB PO SCH ×2 (08:43→21:00)
[2017-03-02] MEDS: DOCUSATE SODIUM 100 MG CAP PO SCH ×2 (08:43→21:04)
[2017-03-02] MEDS: APIXABAN 5 MG TABLET PO SCH ×2 (08:43→21:05)
--- NOTE | 2017-03-02 11:27 | PN ---
DATE: 03/02/2017 SUBJECTIVE: The patient is stable. No events overnight. No fevers, chills, nausea, vomiting. OBJECTIVE DATA: VITAL SIGNS: Blood pressure is 112/66, temperature 98.1, pulse 66, respirations 19. HEENT: Head is normocephalic. NECK: Supple. HEART: Regular rate. LUNGS: Diminished breath sounds at the base. ABDOMEN: Soft, nontender to palpation. No rebound or guarding. EXTREMITIES: Negative for clubbing, cyanosis. No edema. DERMATOLOGIC: Clean. No rashes. MUSCULOSKELETAL: No joint effusion. NEUROLOGIC: No change in exam. MEDICATIONS: Reviewed. LABORATORY AND DIAGNOSTIC DATA: White count 8.0, hemoglobin 10.9, hematocrit 34.7, platelet count 390,000. BMP within normal limits. ASSESSMENT AND PLAN: 1. Acute cerebrovascular accident. The patient is currently stable. Continue medical management with Eliquis, aspirin and Lipitor. 2. Seizure disorder. Continue Keppra. 3. Hypertension. Continue current blood pressure regimen. 4. Coronary artery disease. Continue medical management. 5. Continue statin therapy. 6. Anemia. Monitor hemoglobin and hematocrit levels. 7. History of dementia. 8. Paroxysmal atrial fibrillation, currently sinus rhythm. 9. Depression. 10. Status post urinary tract infection. 11. Gastrointestinal and deep venous thrombosis prophylaxis. Dictated By: Derrick Bloom DO /anders/cindy /Document#: [id number]
--- NOTE | 2017-03-02 12:38 | CONS ---
Date/Time of Note Date/Time of Note DATE: 03/02/17 TIME: 12:37 Consult Date/Type/Reason Admit Date/Time Feb 24, 2017 at 18:19 Initial Consult Date 02/25/17 Type of Consultation: [facility] Ordering Provider: MEGAN FLORES DO Subjective Comfortable Objective pulm-cta dep transfers Vital Signs Date Time Temp Pulse Resp B/P Pulse Ox O2 Delivery O2 Flow Rate FiO2 03/02/17 08:00 98.1 66 18 112/66 97 02/28/17 22:00 Room Air Intake and Output 03/01/17 03/01/17 03/02/17 15:00 23:00 07:00 Intake Total 630 ml Balance 630 ml Results/Medications Result Diagram: 03/02/17 0548 03/02/17 0550 Results 24 hrs Laboratory Tests Test 03/02/17 05:48 03/02/17 05:50 White Blood Count 8.0 # Red Blood Count 3.85 L Hemoglobin 10.8 L Hematocrit 34.7 L Mean Corpuscular Volume 90.1 Mean Corpuscular Hemoglobin 28.1 L Mean Corpuscular Hemoglobin Concent 31.1 L Red Cell Distribution Width 14.3 Platelet Count 390 Mean Platelet Volume 10.2 Neutrophils % 55.1 Lymphocytes % 33.8 Monocytes % 7.9 Eosinophils % 1.5 Basophils % 1.0 Nucleated Red Blood Cells % 0.0 Neutrophils # (Manual) 4.4 Lymphocytes # 2.7 Monocytes # 0.6 Eosinophils # 0.1 Basophils # 0.1 Nucleated Red Blood Cells # 0.0 Sodium Level 139 Potassium Level 4.3 Chloride Level 105 Carbon Dioxide Level 27 Anion Gap 11 Blood Urea Nitrogen 14 Creatinine 0.61 Glucose Level 90 Calcium Level 9.2 Phosphorus Level 3.3 Magnesium Level 2.0 Medications Current Medications Pantoprazole (Protonix Tab) 40 mg DAILY@06 PO Last administered on 03/02/17 06: 24; Admin Dose 40 MG; Start 02/25/17 at 06:00 Polyethylene Glycol (Miralax) 17 gm DAILY PO Last administered on 03/02/17 08: 41; Admin Dose 17 GM; Start 02/25/17 at 09:00 IV Flush (NS 3 ml) 3 ml Q8 IV Last administered on 03/01/17 05:28; Admin Dose 3 ML; Start 02/24/17 at 22:00 Simethicone (Mylicon) 80 mg TID PRN PO DISTENSION/GAS/BLOATING Last administered on 03/01/17 03:01; Admin Dose 80 MG; Start 02/24/17 at 21:00 Zolpidem Tartrate (Ambien) 5 mg HS PRN PO INSOMNIA Last administered on 22:11; Admin Dose 5 MG; Start 02/24/17 at 21:00 Lactulose (Enulose) 20 gm TID PO Last administered on 03/02/17 08:42; Admin Dose 20 GM; Start 02/24/17 at 21:00 Meclizine HCl (Antivert) 25 mg DAILY PRN PO VERTIGO Last administered on 09:35; Admin Dose 25 MG; Start 02/24/17 at 21:00 Metoprolol Succinate (Toprol Xl) 12.5 mg BID PO Last administered on 03/02/17 08:43; Admin Dose 12.5 MG; Start 02/24/17 at 21:00 Ondansetron HCl (Zofran Inj) 4 mg Q6H PRN IV NAUSEA AND/OR VOMITING; Start at 21:00 Acetaminophen (Tylenol Tab) 650 mg Q6H PRN PO PAIN AND OR ELEVATED TEMP; Start 02/24/17 at 21:00 Apixaban (Eliquis) 2.5 mg BID PO Last administered on 03/02/17 08:43; Admin Dose 2.5 MG; Start 02/24/17 at 21:00 Aspirin (Aspirin) 81 mg DAILY PO Last administered on 03/02/17 08:43; Admin Dose 81 MG; Start 02/25/17 at 09:00 Atorvastatin Calcium (Lipitor) 80 mg DAILY@21 PO Last administered on 03/01/17 20:03; Admin Dose 80 MG; Start 02/24/17 at 21:00 Clonazepam (Klonopin) 0.25 mg BID PO Last administered on 03/02/17 08:43; Admin Dose 0.25 MG; Start 02/24/17 at 21:00 Gentamicin Sulfate (Gentamicin 0.3% Oph Drop) 1 drop Q4HWA BOTH EYES Last administered on 03/02/17 08:42; Admin Dose 1 DROP; Start 02/24/17 at 21:00 Escitalopram Oxalate (Lexapro) 10 mg QHS PO Last administered on 03/01/17 20:03 ; Admin Dose 10 MG; Start 02/24/17 at 21:00 Docusate Sodium (Colace) 100 mg BID PO Last administered on 03/02/17 08:43; Admin Dose 100 MG; Start 02/24/17 at 21:00 Clonidine (Catapres) 0.1 mg Q6H PRN PO SBP > 170; Start 02/24/17 at 21:00 Bisacodyl (Dulcolax Supp) 10 mg DAILY PRN [place] CONSTIPATION Last administered on 03/01/17 06:47; Admin Dose 10 MG; Start 02/25/17 at 04:30 Lisinopril (Zestril) 2.5 mg DAILY PO Last administered on 03/02/17 08:43; Admin Dose 2.5 MG; Start 03/01/17 at 09:00 Levetiracetam (Keppra Liquid) 750 mg TID PO Last administered on 03/02/17 08:41 ; Admin Dose 750 MG; Start 02/28/17 at 23:00 Assessment/Plan Additional Assessment/Plan Rehab- 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 Continue rehab activities as tolerated Possible seizure disorder. Hypertension. Urinary tract infection. Coronary artery disease. Dyslipidemia. Paroxysmal atrial fibrillation. Anemia. History of cerebrovascular accident. FARIDEH COOK MD Mar 02, 2017 12:38
[2017-03-02 20:00] VITALS: BP 130/64; RESP 18
[2017-03-02] MEDS: ATORVASTATIN 80 MG TAB PO SCH (21:04)
[2017-03-02] MEDS: ESCITALOPRAM 10 MG TAB PO SCH (21:04)
--- NOTE | 2017-03-02 23:16 | CONS ---
Date/Time of Note Date/Time of Note DATE: 03/02/17 TIME: 23:15 Assessment/Plan Assessment/Plan Chief Complaint/Hosp Course Hypercoagulable state Acute cerebrovascular accident. The patient will continue current medical management of Eliquis, aspirin, and Lipitor. ANEMIA- COMPLEX, MULTIFACTORIAL LOOKS COMPENSATED AT PRESENT CONT TO MONITR Seizure disorder. Continue Keppra. Hypertension. Continue current blood pressure regimen. This is status post urinary tract infection. Coronary artery disease. Continue current medical management. Continue statin therapy. Dementia. Paroxysmal atrial fibrillation, currently in sinus rhythm. Anxiety and depression. Continue Lexapro. Gastrointestinal and deep venous thrombosis prophylaxis. Continue proton pump inhibitor and Eliquis Problems: Consultation Date/Type/Reason Admit Date/Time Feb 24, 2017 at 18:19 Initial Consult Date 02/25/17 Type of Consultation: [facility] Referring Provider: MEGAN FLORES DO 24 HR Interval Summary Free Text/Dictation ALL NOTED NO NEW EVENTS Exam/Review of Systems Vital Signs Vitals Vital Signs Date Time Temp Pulse Resp B/P Pulse Ox O2 Delivery O2 Flow Rate FiO2 03/02/17 08:00 98.1 66 18 112/66 97 02/28/17 22:00 Room Air Intake and Output 03/01/17 03/01/17 03/02/17 15:00 23:00 07:00 Intake Total 630 ml Balance 630 ml Exam HEENT: Head is normocephalic. NECK: Supple. HEART: Regular rate. LUNGS: Diminished breath sounds at the base. ABDOMEN: Soft. Nontender to palpation. No guarding. EXTREMITIES: Negative for clubbing, cyanosis, or edema. DERMATOLOGIC: No rashes. MUSCULOSKELETAL: No joint effusion. NEUROLOGIC: The patient has left-sided hemiparesis. No change. Results Result Diagram: 03/02/17 0548 03/02/17 0550 Results 24 hrs Laboratory Tests Test 03/02/17 05:48 03/02/17 05:50 White Blood Count 8.0 # Red Blood Count 3.85 L Hemoglobin 10.8 L Hematocrit 34.7 L Mean Corpuscular Volume 90.1 Mean Corpuscular Hemoglobin 28.1 L Mean Corpuscular Hemoglobin Concent 31.1 L Red Cell Distribution Width 14.3 Platelet Count 390 Mean Platelet Volume 10.2 Neutrophils % 55.1 Lymphocytes % 33.8 Monocytes % 7.9 Eosinophils % 1.5 Basophils % 1.0 Nucleated Red Blood Cells % 0.0 Neutrophils # (Manual) 4.4 Lymphocytes # 2.7 Monocytes # 0.6 Eosinophils # 0.1 Basophils # 0.1 Nucleated Red Blood Cells # 0.0 Sodium Level 139 Potassium Level 4.3 Chloride Level 105 Carbon Dioxide Level 27 Anion Gap 11 Blood Urea Nitrogen 14 Creatinine 0.61 Glucose Level 90 Calcium Level 9.2 Phosphorus Level 3.3 Magnesium Level 2.0 Medications Medications Current Medications Pantoprazole (Protonix Tab) 40 mg DAILY@06 PO Last administered on 03/02/17 06: 24; Admin Dose 40 MG; Start 02/25/17 at 06:00 Polyethylene Glycol (Miralax) 17 gm DAILY PO Last administered on 03/02/17 08: 41; Admin Dose 17 GM; Start 02/25/17 at 09:00 IV Flush (NS 3 ml) 3 ml Q8 IV Last administered on 03/02/17 21:06; Admin Dose 3 ML; Start 02/24/17 at 22:00 Simethicone (Mylicon) 80 mg TID PRN PO DISTENSION/GAS/BLOATING Last administered on 03/01/17 03:01; Admin Dose 80 MG; Start 02/24/17 at 21:00 Zolpidem Tartrate (Ambien) 5 mg HS PRN PO INSOMNIA Last administered on 22:11; Admin Dose 5 MG; Start 02/24/17 at 21:00 Lactulose (Enulose) 20 gm TID PO Last administered on 03/02/17 21:06; Admin Dose 20 GM; Start 02/24/17 at 21:00 Meclizine HCl (Antivert) 25 mg DAILY PRN PO VERTIGO Last administered on 09:35; Admin Dose 25 MG; Start 02/24/17 at 21:00 Metoprolol Succinate (Toprol Xl) 12.5 mg BID PO Last administered on 03/02/17 08:43; Admin Dose 12.5 MG; Start 02/24/17 at 21:00 Ondansetron HCl (Zofran Inj) 4 mg Q6H PRN IV NAUSEA AND/OR VOMITING; Start at 21:00 Acetaminophen (Tylenol Tab) 650 mg Q6H PRN PO PAIN AND OR ELEVATED TEMP; Start 02/24/17 at 21:00 Apixaban (Eliquis) 2.5 mg BID PO Last administered on 03/02/17 21:05; Admin Dose 2.5 MG; Start 02/24/17 at 21:00 Aspirin (Aspirin) 81 mg DAILY PO Last administered on 03/02/17 08:43; Admin Dose 81 MG; Start 02/25/17 at 09:00 Atorvastatin Calcium (Lipitor) 80 mg DAILY@21 PO Last administered on 03/02/17 21:04; Admin Dose 80 MG; Start 02/24/17 at 21:00 Clonazepam (Klonopin) 0.25 mg BID PO Last administered on 03/02/17 21:04; Admin Dose 0.25 MG; Start 02/24/17 at 21:00 Gentamicin Sulfate (Gentamicin 0.3% Oph Drop) 1 drop Q4HWA BOTH EYES Last administered on 03/02/17 21:04; Admin Dose 1 DROP; Start 02/24/17 at 21:00 Escitalopram Oxalate (Lexapro) 10 mg QHS PO Last administered on 03/02/17 21:04 ; Admin Dose 10 MG; Start 02/24/17 at 21:00 Docusate Sodium (Colace) 100 mg BID PO Last administered on 03/02/17 21:04; Admin Dose 100 MG; Start 02/24/17 at 21:00 Clonidine (Catapres) 0.1 mg Q6H PRN PO SBP > 170; Start 02/24/17 at 21:00 Bisacodyl (Dulcolax Supp) 10 mg DAILY PRN [place] CONSTIPATION Last administered on 03/01/17 06:47; Admin Dose 10 MG; Start 02/25/17 at 04:30 Lisinopril (Zestril) 2.5 mg DAILY PO Last administered on 03/02/17 08:43; Admin Dose 2.5 MG; Start 03/01/17 at 09:00 Levetiracetam (Keppra Liquid) 750 mg TID PO Last administered on 03/02/17 21:06 ; Admin Dose 750 MG; Start 02/28/17 at 23:00 TERRA RANGEL MD Mar 02, 2017 23:16
[2017-03-03] MEDS: GENTAMICIN 0.3% 5 ML OPH BOTH EYES SCH ×6 (01:00→20:36)
[2017-03-03 02:00] VITALS: BP 103/59; RESP 18
[2017-03-03] MEDS: PANTOPRAZOLE (EC) 40 MG TAB PO SCH ×2 (06:00→08:45)
[2017-03-03] MEDS: NACL 0.9% 3 ML SYG IV SCH ×3 (06:34→22:00)
[2017-03-03 08:00] VITALS: BP 111/67; RESP 18
[2017-03-03] MEDS: LEVETIRACETAM (100 MG/ML) 5ML CUP PO SCH ×3 (08:44→20:37)
[2017-03-03] MEDS: clonAZEPAM 0.5 MG TAB PO SCH ×2 (08:45→20:37)
[2017-03-03] MEDS: ASPIRIN 81 MG TAB PO SCH (08:45)
[2017-03-03] MEDS: APIXABAN 5 MG TABLET PO SCH ×2 (08:45→20:39)
[2017-03-03] MEDS: DOCUSATE SODIUM 100 MG CAP PO SCH ×2 (08:46→20:36)
[2017-03-03] MEDS: LACTULOSE 30ML CUP PO SCH ×3 (08:46→20:39)
[2017-03-03] MEDS: POLYETHYLENE GLYCOL 17 GM PACKET PO SCH (08:46)
[2017-03-03] MEDS: METOPROLOL (XL) 25 MG TAB PO SCH ×2 (08:46→20:38)
[2017-03-03] MEDS: LISINOPRIL 5 MG TAB PO SCH (08:47)
--- NOTE | 2017-03-03 11:04 | CONS ---
Date/Time of Note Date/Time of Note DATE: 03/03/17 TIME: 11:03 Consult Date/Type/Reason Admit Date/Time Feb 24, 2017 at 18:19 Initial Consult Date 02/25/17 Type of Consultation: [facility] Ordering Provider: MEGAN FLORES DO Subjective No new complaints Objective pulm-cta max assist Vital Signs Date Time Temp Pulse Resp B/P Pulse Ox O2 Delivery O2 Flow Rate FiO2 03/03/17 08:00 98.4 81 18 111/67 95 02/28/17 22:00 Room Air Intake and Output 03/02/17 03/02/17 03/03/17 15:00 23:00 07:00 Intake Total 720 ml 360 ml Balance 720 ml 360 ml Results/Medications Result Diagram: 03/02/17 0548 03/02/17 0550 Medications Current Medications Pantoprazole (Protonix Tab) 40 mg DAILY@06 PO Last administered on 03/03/17 08: 45; Admin Dose 40 MG; Start 02/25/17 at 06:00 Polyethylene Glycol (Miralax) 17 gm DAILY PO Last administered on 03/02/17 08: 41; Admin Dose 17 GM; Start 02/25/17 at 09:00 IV Flush (NS 3 ml) 3 ml Q8 IV Last administered on 03/03/17 06:34; Admin Dose 3 ML; Start 02/24/17 at 22:00 Simethicone (Mylicon) 80 mg TID PRN PO DISTENSION/GAS/BLOATING Last administered on 03/01/17 03:01; Admin Dose 80 MG; Start 02/24/17 at 21:00 Zolpidem Tartrate (Ambien) 5 mg HS PRN PO INSOMNIA Last administered on 22:11; Admin Dose 5 MG; Start 02/24/17 at 21:00 Lactulose (Enulose) 20 gm TID PO Last administered on 03/02/17 21:06; Admin Dose 20 GM; Start 02/24/17 at 21:00 Meclizine HCl (Antivert) 25 mg DAILY PRN PO VERTIGO Last administered on 09:35; Admin Dose 25 MG; Start 02/24/17 at 21:00 Metoprolol Succinate (Toprol Xl) 12.5 mg BID PO Last administered on 03/02/17 08:43; Admin Dose 12.5 MG; Start 02/24/17 at 21:00 Ondansetron HCl (Zofran Inj) 4 mg Q6H PRN IV NAUSEA AND/OR VOMITING; Start at 21:00 Acetaminophen (Tylenol Tab) 650 mg Q6H PRN PO PAIN AND OR ELEVATED TEMP; Start 02/24/17 at 21:00 Apixaban (Eliquis) 2.5 mg BID PO Last administered on 03/03/17 08:45; Admin Dose 2.5 MG; Start 02/24/17 at 21:00 Aspirin (Aspirin) 81 mg DAILY PO Last administered on 03/03/17 08:45; Admin Dose 81 MG; Start 02/25/17 at 09:00 Atorvastatin Calcium (Lipitor) 80 mg DAILY@21 PO Last administered on 03/02/17 21:04; Admin Dose 80 MG; Start 02/24/17 at 21:00 Clonazepam (Klonopin) 0.25 mg BID PO Last administered on 03/03/17 08:45; Admin Dose 0.25 MG; Start 02/24/17 at 21:00 Gentamicin Sulfate (Gentamicin 0.3% Oph Drop) 1 drop Q4HWA BOTH EYES Last administered on 03/03/17 08:45; Admin Dose 1 DROP; Start 02/24/17 at 21:00 Escitalopram Oxalate (Lexapro) 10 mg QHS PO Last administered on 03/02/17 21:04 ; Admin Dose 10 MG; Start 02/24/17 at 21:00 Docusate Sodium (Colace) 100 mg BID PO Last administered on 03/02/17 21:04; Admin Dose 100 MG; Start 02/24/17 at 21:00 Clonidine (Catapres) 0.1 mg Q6H PRN PO SBP > 170; Start 02/24/17 at 21:00 Bisacodyl (Dulcolax Supp) 10 mg DAILY PRN [place] CONSTIPATION Last administered on 03/01/17 06:47; Admin Dose 10 MG; Start 02/25/17 at 04:30 Lisinopril (Zestril) 2.5 mg DAILY PO Last administered on 03/02/17 08:43; Admin Dose 2.5 MG; Start 03/01/17 at 09:00 Levetiracetam (Keppra Liquid) 750 mg TID PO Last administered on 03/03/17t 08:44 ; Admin Dose 750 MG; Start 02/28/17 at 23:00 Assessment/Plan Additional Assessment/Plan Rehab- 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 Continue rehab program. Possible seizure disorder. Hypertension. Urinary tract infection. Coronary artery disease. Dyslipidemia. Paroxysmal atrial fibrillation. Anemia. History of cerebrovascular accident. FARIDEH COOK MD Mar 03, 2017 11:04
--- NOTE | 2017-03-03 11:16 | PN ---
DATE: 03/03/2017 SUBJECTIVE DATA: Patient is stable. No events overnight. No fevers, chills, nausea, vomiting. OBJECTIVE DATA: VITAL SIGNS: Blood pressure 101/67, temperature 98.4. Pulse 81, respirations. HEENT: Head is normocephalic. NECK: Supple. HEART: Regular rate. LUNGS: Diminished breath sounds at the base. ABDOMEN: Soft, nontender to palpation. No rebound or guarding. EXTREMITIES: Negative for clubbing, cyanosis. No edema. DERMATOLOGIC: No rashes. MUSCULOSKELETAL: No joint effusion. NEUROLOGIC: No change in exam. MEDICATIONS: Reviewed. ASSESSMENT AND PLAN: 1. Acute cerebrovascular accident. The patient is currently stable. Continue medical management with Eliquis, aspirin and Lipitor. 2. Seizure disorder. Continue Keppra. 3. Hypertension. Continue current blood pressure regimen. 4. Chronic disease. Continue medical management. 5. Dyslipidemia. Continue statin therapy. 6. Anemia. Monitor hemoglobin and hematocrit levels. 7. Paroxysmal atrial fibrillation. Currently in sinus rhythm. 8. Next status post-percutaneous coronary intervention. 9. Gastrointestinal and deep venous thrombosis prophylaxis. Dictated By: Derrcik Bloom DO /anders/jessica /Document#: [id number]
--- NOTE | 2017-03-03 17:03 | CONS ---
Date/Time of Note Date/Time of Note DATE: 03/03/17 TIME: 17:00 Assessment/Plan Assessment/Plan Chief Complaint/Hosp Course IMPRESSION: 1. Syncope. -NL EF by echo/RV enlargement with NL RV function/negative trop x 3/negative orthostatics/no sig arrythmias by ecg. Area of acute infarct by MRI 2. Hypertension-well controlled and tolerating medications 3. Dyslipidemia. 4. History of cerebrovascular accident. 5. Dementia. 6. Possible urinary tract infection. 7. PAF on xarelto/BB 8. H/O cva-acute on chronic by MRI this admit Recc: -Now transferred to rehab -continue keppra -Continue low dose BB/ACEI as tolerated and follow BP closely -Continue statin -Continue eliquis -PT/OT Problems: Consultation Date/Type/Reason Admit Date/Time Feb 24, 2017 at 18:19 Initial Consult Date 02/25/17 Type of Consultation: cardiology Reason for Consultation syncope Referring Provider: MEGAN FLORES DO Exam/Review of Systems Vital Signs Vitals Vital Signs Date Time Temp Pulse Resp B/P Pulse Ox O2 Delivery O2 Flow Rate FiO2 03/03/17 08:00 98.4 81 18 111/67 95 02/28/17 22:00 Room Air Intake and Output 03/02/17 03/02/17 03/03/17 15:00 23:00 07:00 Intake Total 720 ml 360 ml Balance 720 ml 360 ml Exam Review of Systems: CONSTITUTIONAL: No fevers, chills. PULMONARY: No sob CARDIOVASCULAR: No chest pain/palpitations GASTROINTESTINAL: No nausea/vomiting. GENITOURINARY: No hematuria/dysuria. MUSCULOSKELETAL: No myagias/arthalgias. PSYCHIATRIC: The patient denies depression. NEUROLOGIC: generalized weakness Constitutional: alert Psych: no complaints Head: normocephalic ENMT: mucosa pink and moist Neck: jvd (8 cm water), supple Respiratory: clear to auscultation Cardiovascular: regular rate and rhythm Gastrointestinal: non-tender, soft Musculoskeletal: muscle weakness (mild generalized) Extremities: edema (none) Neurological: lethargic Results Result Diagram: 03/02/17 0548 03/02/17 0550 Medications Medications Current Medications Pantoprazole (Protonix Tab) 40 mg DAILY@06 PO Last administered on 03/03/17t 08: 45; Admin Dose 40 MG; Start 02/25/17 at 06:00 Polyethylene Glycol (Miralax) 17 gm DAILY PO Last administered on 03/02/17 08: 41; Admin Dose 17 GM; Start 02/25/17 at 09:00 IV Flush (NS 3 ml) 3 ml Q8 IV Last administered on 03/03/17 06:34; Admin Dose 3 ML; Start 02/24/17 at 22:00 Simethicone (Mylicon) 80 mg TID PRN PO DISTENSION/GAS/BLOATING Last administered on 03/01/17 03:01; Admin Dose 80 MG; Start 02/24/17 at 21:00 Zolpidem Tartrate (Ambien) 5 mg HS PRN PO INSOMNIA Last administered on 22:11; Admin Dose 5 MG; Start 02/24/17 at 21:00 Lactulose (Enulose) 20 gm TID PO Last administered on 03/02/17 21:06; Admin Dose 20 GM; Start 02/24/17 at 21:00 Meclizine HCl (Antivert) 25 mg DAILY PRN PO VERTIGO Last administered on 09:35; Admin Dose 25 MG; Start 02/24/17 at 21:00 Metoprolol Succinate (Toprol Xl) 12.5 mg BID PO Last administered on 03/02/17 08:43; Admin Dose 12.5 MG; Start 02/24/17 at 21:00 Ondansetron HCl (Zofran Inj) 4 mg Q6H PRN IV NAUSEA AND/OR VOMITING; Start at 21:00 Acetaminophen (Tylenol Tab) 650 mg Q6H PRN PO PAIN AND OR ELEVATED TEMP; Start 02/24/17 at 21:00 Apixaban (Eliquis) 2.5 mg BID PO Last administered on 03/03/17 08:45; Admin Dose 2.5 MG; Start 02/24/17 at 21:00 Aspirin (Aspirin) 81 mg DAILY PO Last administered on 03/03/17 08:45; Admin Dose 81 MG; Start 02/25/17 at 09:00 Atorvastatin Calcium (Lipitor) 80 mg DAILY@21 PO Last administered on 03/02/17 21:04; Admin Dose 80 MG; Start 02/24/17 at 21:00 Clonazepam (Klonopin) 0.25 mg BID PO Last administered on 03/03/17 08:45; Admin Dose 0.25 MG; Start 02/24/17 at 21:00 Gentamicin Sulfate (Gentamicin 0.3% Oph Drop) 1 drop Q4HWA BOTH EYES Last administered on 03/03/17 14:17; Admin Dose 1 DROP; Start 02/24/17 at 21:00 Escitalopram Oxalate (Lexapro) 10 mg QHS PO Last administered on 03/02/17 21:04 ; Admin Dose 10 MG; Start 02/24/17 at 21:00 Docusate Sodium (Colace) 100 mg BID PO Last administered on 03/02/17 21:04; Admin Dose 100 MG; Start 02/24/17 at 21:00 Clonidine (Catapres) 0.1 mg Q6H PRN PO SBP > 170; Start 02/24/17 at 21:00 Bisacodyl (Dulcolax Supp) 10 mg DAILY PRN [place] CONSTIPATION Last administered on 03/01/17 06:47; Admin Dose 10 MG; Start 02/25/17 at 04:30 Lisinopril (Zestril) 2.5 mg DAILY PO Last administered on 03/02/17 08:43; Admin Dose 2.5 MG; Start 03/01/17 at 09:00 Levetiracetam (Keppra Liquid) 750 mg TID PO Last administered on 03/03/17 14:17 ; Admin Dose 750 MG; Start 02/28/17 at 23:00 DAVID TESFAYE Mar 03, 2017 17:03
[2017-03-03 20:00] VITALS: BP 109/63; PULSE 78; RESP 19
[2017-03-03] MEDS: ESCITALOPRAM 10 MG TAB PO SCH (20:37)
[2017-03-03] MEDS: ATORVASTATIN 80 MG TAB PO SCH (20:38)
--- NOTE | 2017-03-03 23:43 | CONS ---
Date/Time of Note Date/Time of Note DATE: 03/03/17 TIME: 23:43 Assessment/Plan Assessment/Plan Chief Complaint/Hosp Course Hypercoagulable state Acute cerebrovascular accident. The patient will continue current medical management of Eliquis, aspirin, and Lipitor. ANEMIA- COMPLEX, MULTIFACTORIAL LOOKS COMPENSATED AT PRESENT CONT TO MONITOR Seizure disorder. Continue Keppra. Hypertension. Continue current blood pressure regimen. This is status post urinary tract infection. Coronary artery disease. Continue current medical management. Continue statin therapy. Dementia. Paroxysmal atrial fibrillation, currently in sinus rhythm. Anxiety and depression. Continue Lexapro. Gastrointestinal and deep venous thrombosis prophylaxis. Continue proton pump inhibitor and Eliquis Problems: Consultation Date/Type/Reason Admit Date/Time Feb 24, 2017 at 18:19 Initial Consult Date 02/25/17 Type of Consultation: [facility] Referring Provider: MEGAN FLORES DO 24 HR Interval Summary Free Text/Dictation ALL NOTED FELLING BETTER TODAY Exam/Review of Systems Vital Signs Vitals Vital Signs Date Time Temp Pulse Resp B/P Pulse Ox O2 Delivery O2 Flow Rate FiO2 03/03/17 08:00 98.4 81 18 111/67 95 02/28/17 22:00 Room Air Intake and Output 03/02/17 03/02/17 03/03/17 15:00 23:00 07:00 Intake Total 720 ml 360 ml Balance 720 ml 360 ml Exam HEENT: Head is normocephalic. NECK: Supple. HEART: Regular rate. LUNGS: Diminished breath sounds at the base. ABDOMEN: Soft. Nontender to palpation. No guarding. EXTREMITIES: Negative for clubbing, cyanosis, or edema. DERMATOLOGIC: No rashes. MUSCULOSKELETAL: No joint effusion. NEUROLOGIC: The patient has left-sided hemiparesis. No change. Results Result Diagram: 03/02/17 0548 03/02/17 0550 Medications Medications Current Medications Pantoprazole (Protonix Tab) 40 mg DAILY@06 PO Last administered on 03/03/17 08: 45; Admin Dose 40 MG; Start 02/25/17 at 06:00 Polyethylene Glycol (Miralax) 17 gm DAILY PO Last administered on 03/02/17 08: 41; Admin Dose 17 GM; Start 02/25/17 at 09:00 IV Flush (NS 3 ml) 3 ml Q8 IV Last administered on 03/03/17 06:34; Admin Dose 3 ML; Start 02/24/17 at 22:00 Simethicone (Mylicon) 80 mg TID PRN PO DISTENSION/GAS/BLOATING Last administered on 03/01/17 03:01; Admin Dose 80 MG; Start 02/24/17 at 21:00 Zolpidem Tartrate (Ambien) 5 mg HS PRN PO INSOMNIA Last administered on 22:11; Admin Dose 5 MG; Start 02/24/17 at 21:00 Lactulose (Enulose) 20 gm TID PO Last administered on 03/02/17 21:06; Admin Dose 20 GM; Start 02/24/17 at 21:00 Meclizine HCl (Antivert) 25 mg DAILY PRN PO VERTIGO Last administered on 09:35; Admin Dose 25 MG; Start 02/24/17 at 21:00 Metoprolol Succinate (Toprol Xl) 12.5 mg BID PO Last administered on 03/02/17 08:43; Admin Dose 12.5 MG; Start 02/24/17 at 21:00 Ondansetron HCl (Zofran Inj) 4 mg Q6H PRN IV NAUSEA AND/OR VOMITING; Start at 21:00 Acetaminophen (Tylenol Tab) 650 mg Q6H PRN PO PAIN AND OR ELEVATED TEMP; Start 02/24/17 at 21:00 Apixaban (Eliquis) 2.5 mg BID PO Last administered on 03/03/17 20:39; Admin Dose 2.5 MG; Start 02/24/17 at 21:00 Aspirin (Aspirin) 81 mg DAILY PO Last administered on 03/03/17 08:45; Admin Dose 81 MG; Start 02/25/17 at 09:00 Atorvastatin Calcium (Lipitor) 80 mg DAILY@21 PO Last administered on 03/02/17 21:04; Admin Dose 80 MG; Start 02/24/17 at 21:00 Clonazepam (Klonopin) 0.25 mg BID PO Last administered on 03/03/17 20:37; Admin Dose 0.25 MG; Start 02/24/17 at 21:00 Gentamicin Sulfate (Gentamicin 0.3% Oph Drop) 1 drop Q4HWA BOTH EYES Last administered on 03/03/17 20:36; Admin Dose 1 DROP; Start 02/24/17 at 21:00 Escitalopram Oxalate (Lexapro) 10 mg QHS PO Last administered on 03/03/17 20:37 ; Admin Dose 10 MG; Start 02/24/17 at 21:00 Docusate Sodium (Colace) 100 mg BID PO Last administered on 03/02/17 21:04; Admin Dose 100 MG; Start 02/24/17 at 21:00 Clonidine (Catapres) 0.1 mg Q6H PRN PO SBP > 170; Start 02/24/17 at 21:00 Bisacodyl (Dulcolax Supp) 10 mg DAILY PRN [place] CONSTIPATION Last administered on 03/01/17 06:47; Admin Dose 10 MG; Start 02/25/17 at 04:30 Lisinopril (Zestril) 2.5 mg DAILY PO Last administered on 03/02/17 08:43; Admin Dose 2.5 MG; Start 03/01/17 at 09:00 Levetiracetam (Keppra Liquid) 750 mg TID PO Last administered on 03/03/17 20:37 ; Admin Dose 750 MG; Start 02/28/17 at 23:00 TERRA RANGEL MD Mar 03, 2017 23:43
[2017-03-04] MEDS: GENTAMICIN 0.3% 5 ML OPH BOTH EYES SCH ×6 (01:00→20:56)
[2017-03-04] MEDS: NACL 0.9% 3 ML SYG IV SCH (05:49)
[2017-03-04 07:30] VITALS: BP 120/69; RESP 18
[2017-03-04] MEDS: clonAZEPAM 0.5 MG TAB PO SCH ×2 (09:24→20:57)
[2017-03-04] MEDS: DOCUSATE SODIUM 100 MG CAP PO SCH ×2 (09:24→20:56)
[2017-03-04] MEDS: LACTULOSE 30ML CUP PO SCH ×3 (09:25→20:58)
[2017-03-04] MEDS: LEVETIRACETAM (100 MG/ML) 5ML CUP PO SCH ×3 (09:25→20:58)
[2017-03-04] MEDS: LISINOPRIL 5 MG TAB PO SCH (09:25)
[2017-03-04] MEDS: POLYETHYLENE GLYCOL 17 GM PACKET PO SCH (09:26)
[2017-03-04] MEDS: METOPROLOL (XL) 25 MG TAB PO SCH ×2 (09:27→21:04)
[2017-03-04] MEDS: APIXABAN 5 MG TABLET PO SCH ×2 (09:27→20:57)
[2017-03-04] MEDS: ASPIRIN 81 MG TAB PO SCH (09:28)
--- NOTE | 2017-03-04 10:48 | PN ---
DATE: 03/04/2017 SUBJECTIVE DATA: The patient is stable. No events overnight. OBJECTIVE DATA: VITAL SIGNS: Blood pressure 137/67, respiration is 18, pulse 81. HEENT: Head is normocephalic. NECK: Supple. HEART: Regular rate. LUNGS: Diminished breath sounds at the base. ABDOMEN: Soft, nontender to palpation. No rebound or guarding. EXTREMITIES: Negative for clubbing, cyanosis. No edema. DERMATOLOGIC: No rashes. MUSCULOSKELETAL: No joint effusion. NEUROLOGIC: No change in exam. MEDICATIONS: Reviewed. LABORATORY AND DIAGNOSTIC DATA: Laboratory data has been reviewed. ASSESSMENT AND PLAN: 1. Acute cerebrovascular accident. The patient is currently stable. Continue aspirin and Lipitor. 2. Seizure disorder. Continue Keppra. 3. Hypertension. Continue current blood pressure regimen. 4. Anemia. Monitor hemoglobin and hematocrit levels. 5. Dyslipidemia. Continue statin therapy. 6. Paroxysmal atrial fibrillation. Currently sinus rhythm. Continue medical management. 7. History of coronary artery disease. 8. Gastrointestinal and deep venous thrombosis prophylaxis. 9. Depression. 10. History of dementia. Dictated By: Derrick Bloom DO /anders/jessica /Document#: [id number]
--- NOTE | 2017-03-04 11:49 | CONS ---
Date/Time of Note Date/Time of Note DATE: 03/04/17 TIME: 11:48 Consult Date/Type/Reason Admit Date/Time Feb 24, 2017 at 18:19 Initial Consult Date 02/25/17 Type of Consultation: [facility] Ordering Provider: MEGAN FLORES DO Subjective comfortable Objective pulm-cta max assist transfer Vital Signs Date Time Temp Pulse Resp B/P Pulse Ox O2 Delivery O2 Flow Rate FiO2 03/04/17 07:30 97.7 18 120/69 96 03/03/17 20:00 78 Room Air Intake and Output 03/03/17 03/03/17 03/04/17 14:59 22:59 06:59 Intake Total 720 ml 360 ml 240 ml Output Total 4 ml 4 ml Balance 716 ml 360 ml 236 ml Results/Medications Result Diagram: 03/02/17 0548 03/02/17 0550 Medications Current Medications Pantoprazole (Protonix Tab) 40 mg DAILY@06 PO Last administered on 03/03/17 08: 45; Admin Dose 40 MG; Start 02/25/17 at 06:00 Polyethylene Glycol (Miralax) 17 gm DAILY PO Last administered on 03/04/17 09: 26; Admin Dose 17 GM; Start 02/25/17 at 09:00 Simethicone (Mylicon) 80 mg TID PRN PO DISTENSION/GAS/BLOATING Last administered on 03/01/17 03:01; Admin Dose 80 MG; Start 02/24/17 at 21:00 Zolpidem Tartrate (Ambien) 5 mg HS PRN PO INSOMNIA Last administered on 22:11; Admin Dose 5 MG; Start 02/24/17 at 21:00 Lactulose (Enulose) 20 gm TID PO Last administered on 03/04/17 09:25; Admin Dose 20 GM; Start 02/24/17 at 21:00 Meclizine HCl (Antivert) 25 mg DAILY PRN PO VERTIGO Last administered on 09:35; Admin Dose 25 MG; Start 02/24/17 at 21:00 Metoprolol Succinate (Toprol Xl) 12.5 mg BID PO Last administered on 03/04/17 09:27; Admin Dose 12.5 MG; Start 02/24/17 at 21:00 Ondansetron HCl (Zofran Inj) 4 mg Q6H PRN IV NAUSEA AND/OR VOMITING; Start at 21:00 Acetaminophen (Tylenol Tab) 650 mg Q6H PRN PO PAIN AND OR ELEVATED TEMP; Start 02/24/17 at 21:00 Apixaban (Eliquis) 2.5 mg BID PO Last administered on 03/04/17 09:27; Admin Dose 2.5 MG; Start 02/24/17 at 21:00 Aspirin (Aspirin) 81 mg DAILY PO Last administered on 03/04/17 09:28; Admin Dose 81 MG; Start 02/25/17 at 09:00 Atorvastatin Calcium (Lipitor) 80 mg DAILY@21 PO Last administered on 03/02/17 21:04; Admin Dose 80 MG; Start 02/24/17 at 21:00 Clonazepam (Klonopin) 0.25 mg BID PO Last administered on 03/04/17 09:24; Admin Dose 0.25 MG; Start 02/24/17 at 21:00 Gentamicin Sulfate (Gentamicin 0.3% Oph Drop) 1 drop Q4HWA BOTH EYES Last administered on 03/04/17 09:25; Admin Dose 1 DROP; Start 02/24/17 at 21:00 Escitalopram Oxalate (Lexapro) 10 mg QHS PO Last administered on 03/03/17 20:37 ; Admin Dose 10 MG; Start 02/24/17 at 21:00 Docusate Sodium (Colace) 100 mg BID PO Last administered on 03/04/17 09:24; Admin Dose 100 MG; Start 02/24/17 at 21:00 Clonidine (Catapres) 0.1 mg Q6H PRN PO SBP > 170; Start 02/24/17 at 21:00 Bisacodyl (Dulcolax Supp) 10 mg DAILY PRN [place] CONSTIPATION Last administered on 03/01/17 06:47; Admin Dose 10 MG; Start 02/25/17 at 04:30 Lisinopril (Zestril) 2.5 mg DAILY PO Last administered on 03/04/17 09:25; Admin Dose 2.5 MG; Start 03/01/17 at 09:00 Levetiracetam (Keppra Liquid) 750 mg TID PO Last administered on 03/04/17 09:25 ; Admin Dose 750 MG; Start 02/28/17 at 23:00 Assessment/Plan Additional Assessment/Plan Rehab- 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 Continue rehab treatment plan, increase activities as tolerated Possible seizure disorder. Hypertension. Urinary tract infection. Coronary artery disease. Dyslipidemia. Paroxysmal atrial fibrillation. Anemia. History of cerebrovascular accident. FARIDEH COOK MD Mar 04, 2017 11:49
[2017-03-04 14:00] VITALS: BP 106/55; RESP 20
--- NOTE | 2017-03-04 19:06 | CONS ---
Date/Time of Note Date/Time of Note DATE: 03/04/17 TIME: 19:04 Assessment/Plan Assessment/Plan Chief Complaint/Hosp Course IMPRESSION: 1. Syncope. -NL EF by echo/RV enlargement with NL RV function/negative trop x 3/negative orthostatics/no sig arrythmias by ecg. Area of acute infarct by MRI 2. Hypertension-well controlled and tolerating medications 3. Dyslipidemia. 4. History of cerebrovascular accident. 5. Dementia. 6. Possible urinary tract infection. 7. PAF on xarelto/BB 8. H/O cva-acute on chronic by MRI this admit Recc: -Now transferred to rehab -continue keppra -Continue low dose BB/ACEI as tolerated and follow BP closely -Continue statin -Continue eliquis -PT/OT Problems: Consultation Date/Type/Reason Admit Date/Time Feb 24, 2017 at 18:19 Initial Consult Date 02/25/17 Type of Consultation: cardiology Reason for Consultation syncope Referring Provider: MEGAN FLORES DO Exam/Review of Systems Vital Signs Vitals Vital Signs Date Time Temp Pulse Resp B/P Pulse Ox O2 Delivery O2 Flow Rate FiO2 03/04/17 14:00 98.6 75 20 106/55 97 03/03/17 20:00 Room Air Intake and Output 03/03/17 03/03/17 03/04/17 14:59 22:59 06:59 Intake Total 720 ml 360 ml 240 ml Output Total 4 ml 4 ml Balance 716 ml 360 ml 236 ml Exam Review of Systems: CONSTITUTIONAL: No fevers, chills. PULMONARY: No sob CARDIOVASCULAR: No chest pain/palpitations GASTROINTESTINAL: No nausea/vomiting. GENITOURINARY: No hematuria/dysuria. MUSCULOSKELETAL: No myagias/arthalgias. PSYCHIATRIC: The patient denies depression. NEUROLOGIC: No weakness Constitutional: alert, oriented Psych: no complaints ENMT: mucosa pink and moist Neck: jvd (9 cm water), supple Respiratory: diminished breath sounds (at bases/B) Cardiovascular: regular rate and rhythm Gastrointestinal: non-tender, soft Musculoskeletal: muscle tone Extremities: other (No focal deficits) Results Result Diagram: 03/02/17 0548 03/02/17 0550 Medications Medications Current Medications Pantoprazole (Protonix Tab) 40 mg DAILY@06 PO Last administered on 03/03/17t 08: 45; Admin Dose 40 MG; Start 02/25/17 at 06:00 Polyethylene Glycol (Miralax) 17 gm DAILY PO Last administered on 03/04/17 09: 26; Admin Dose 17 GM; Start 02/25/17 at 09:00 Simethicone (Mylicon) 80 mg TID PRN PO DISTENSION/GAS/BLOATING Last administered on 03/01/17 03:01; Admin Dose 80 MG; Start 02/24/17 at 21:00 Zolpidem Tartrate (Ambien) 5 mg HS PRN PO INSOMNIA Last administered on 22:11; Admin Dose 5 MG; Start 02/24/17 at 21:00 Lactulose (Enulose) 20 gm TID PO Last administered on 03/04/17 13:38; Admin Dose 20 GM; Start 02/24/17 at 21:00 Meclizine HCl (Antivert) 25 mg DAILY PRN PO VERTIGO Last administered on 09:35; Admin Dose 25 MG; Start 02/24/17 at 21:00 Metoprolol Succinate (Toprol Xl) 12.5 mg BID PO Last administered on 03/04/17 09:27; Admin Dose 12.5 MG; Start 02/24/17 at 21:00 Ondansetron HCl (Zofran Inj) 4 mg Q6H PRN IV NAUSEA AND/OR VOMITING; Start at 21:00 Acetaminophen (Tylenol Tab) 650 mg Q6H PRN PO PAIN AND OR ELEVATED TEMP; Start 02/24/17 at 21:00 Apixaban (Eliquis) 2.5 mg BID PO Last administered on 03/04/17 09:27; Admin Dose 2.5 MG; Start 02/24/17 at 21:00 Aspirin (Aspirin) 81 mg DAILY PO Last administered on 03/04/17 09:28; Admin Dose 81 MG; Start 02/25/17 at 09:00 Atorvastatin Calcium (Lipitor) 80 mg DAILY@21 PO Last administered on 03/02/17 21:04; Admin Dose 80 MG; Start 02/24/17 at 21:00 Clonazepam (Klonopin) 0.25 mg BID PO Last administered on 03/04/17 09:24; Admin Dose 0.25 MG; Start 02/24/17 at 21:00 Gentamicin Sulfate (Gentamicin 0.3% Oph Drop) 1 drop Q4HWA BOTH EYES Last administered on 03/04/17 13:39; Admin Dose 1 DROP; Start 02/24/17 at 21:00 Escitalopram Oxalate (Lexapro) 10 mg QHS PO Last administered on 03/03/17 20:37 ; Admin Dose 10 MG; Start 02/24/17 at 21:00 Docusate Sodium (Colace) 100 mg BID PO Last administered on 03/04/17 09:24; Admin Dose 100 MG; Start 02/24/17 at 21:00 Clonidine (Catapres) 0.1 mg Q6H PRN PO SBP > 170; Start 02/24/17 at 21:00 Bisacodyl (Dulcolax Supp) 10 mg DAILY PRN [place] CONSTIPATION Last administered on 03/01/17 06:47; Admin Dose 10 MG; Start 02/25/17 at 04:30 Lisinopril (Zestril) 2.5 mg DAILY PO Last administered on 03/04/17 09:25; Admin Dose 2.5 MG; Start 03/01/17 at 09:00 Levetiracetam (Keppra Liquid) 750 mg TID PO Last administered on 03/04/17 13:39 ; Admin Dose 750 MG; Start 02/28/17 at 23:00 DAVID TESFAYE Mar 04, 2017 19:06
--- NOTE | 2017-03-04 19:09 | CONS ---
Date/Time of Note Date/Time of Note DATE: 03/04/17 TIME: 19:07 Assessment/Plan Assessment/Plan Chief Complaint/Hosp Course IMPRESSION: 1. Syncope. -NL EF by echo/RV enlargement with NL RV function/negative trop x 3/negative orthostatics/no sig arrythmias by ecg. Area of acute infarct by MRI 2. Hypertension-well controlled and tolerating medications 3. Dyslipidemia. 4. History of cerebrovascular accident. 5. Dementia. 6. Possible urinary tract infection. 7. PAF on xarelto/BB 8. H/O cva-acute on chronic by MRI this admit Recc: -Now transferred to rehab -continue keppra -Continue low dose BB/ACEI as tolerated and follow BP closely -Continue statin -Continue eliquis -PT/OT Problems: Consultation Date/Type/Reason Admit Date/Time Feb 24, 2017 at 18:19 Initial Consult Date 02/25/17 Type of Consultation: cardiology Reason for Consultation syncope Referring Provider: MEGAN FLORES DO Exam/Review of Systems Vital Signs Vitals Vital Signs Date Time Temp Pulse Resp B/P Pulse Ox O2 Delivery O2 Flow Rate FiO2 03/04/17 14:00 98.6 75 20 106/55 97 03/03/17 20:00 Room Air Intake and Output 03/03/17 03/03/17 03/04/17 14:59 22:59 06:59 Intake Total 720 ml 360 ml 240 ml Output Total 4 ml 4 ml Balance 716 ml 360 ml 236 ml Exam Review of Systems: CONSTITUTIONAL: No fevers, chills. PULMONARY: No sob CARDIOVASCULAR: No chest pain/palpitations GASTROINTESTINAL: No nausea/vomiting. GENITOURINARY: No hematuria/dysuria. MUSCULOSKELETAL: No myagias/arthalgias. PSYCHIATRIC: The patient denies depression. NEUROLOGIC: No weakness Constitutional: alert Psych: no complaints Head: normocephalic ENMT: mucosa pink and moist Neck: jvd, supple Respiratory: diminished breath sounds Cardiovascular: regular rate and rhythm Gastrointestinal: non-tender, soft Musculoskeletal: muscle tone Extremities: edema (none) Neurological: other (No focal defiicits) Results Result Diagram: 03/02/17 0548 03/02/17 0550 Medications Medications Current Medications Pantoprazole (Protonix Tab) 40 mg DAILY@06 PO Last administered on 9/6/17at 08: 45; Admin Dose 40 MG; Start 02/25/17 at 06:00 Polyethylene Glycol (Miralax) 17 gm DAILY PO Last administered on 03/04/17 09: 26; Admin Dose 17 GM; Start 02/25/17 at 09:00 Simethicone (Mylicon) 80 mg TID PRN PO DISTENSION/GAS/BLOATING Last administered on 03/01/17 03:01; Admin Dose 80 MG; Start 02/24/17 at 21:00 Zolpidem Tartrate (Ambien) 5 mg HS PRN PO INSOMNIA Last administered on 22:11; Admin Dose 5 MG; Start 02/24/17 at 21:00 Lactulose (Enulose) 20 gm TID PO Last administered on 03/04/17 13:38; Admin Dose 20 GM; Start 02/24/17 at 21:00 Meclizine HCl (Antivert) 25 mg DAILY PRN PO VERTIGO Last administered on 09:35; Admin Dose 25 MG; Start 02/24/17 at 21:00 Metoprolol Succinate (Toprol Xl) 12.5 mg BID PO Last administered on 03/04/17 09:27; Admin Dose 12.5 MG; Start 02/24/17 at 21:00 Ondansetron HCl (Zofran Inj) 4 mg Q6H PRN IV NAUSEA AND/OR VOMITING; Start at 21:00 Acetaminophen (Tylenol Tab) 650 mg Q6H PRN PO PAIN AND OR ELEVATED TEMP; Start 02/24/17 at 21:00 Apixaban (Eliquis) 2.5 mg BID PO Last administered on 03/04/17 09:27; Admin Dose 2.5 MG; Start 02/24/17 at 21:00 Aspirin (Aspirin) 81 mg DAILY PO Last administered on 03/04/17 09:28; Admin Dose 81 MG; Start 02/25/17 at 09:00 Atorvastatin Calcium (Lipitor) 80 mg DAILY@21 PO Last administered on 03/02/17 21:04; Admin Dose 80 MG; Start 02/24/17 at 21:00 Clonazepam (Klonopin) 0.25 mg BID PO Last administered on 03/04/17 09:24; Admin Dose 0.25 MG; Start 02/24/17 at 21:00 Gentamicin Sulfate (Gentamicin 0.3% Oph Drop) 1 drop Q4HWA BOTH EYES Last administered on 03/04/17 13:39; Admin Dose 1 DROP; Start 02/24/17 at 21:00 Escitalopram Oxalate (Lexapro) 10 mg QHS PO Last administered on 03/03/17 20:37 ; Admin Dose 10 MG; Start 02/24/17 at 21:00 Docusate Sodium (Colace) 100 mg BID PO Last administered on 03/04/17 09:24; Admin Dose 100 MG; Start 02/24/17 at 21:00 Clonidine (Catapres) 0.1 mg Q6H PRN PO SBP > 170; Start 02/24/17 at 21:00 Bisacodyl (Dulcolax Supp) 10 mg DAILY PRN [place] CONSTIPATION Last administered on 03/01/17 06:47; Admin Dose 10 MG; Start 02/25/17 at 04:30 Lisinopril (Zestril) 2.5 mg DAILY PO Last administered on 03/04/17 09:25; Admin Dose 2.5 MG; Start 03/01/17 at 09:00 Levetiracetam (Keppra Liquid) 750 mg TID PO Last administered on 03/04/17 13:39 ; Admin Dose 750 MG; Start 02/28/17 at 23:00 DAVID TESFAYE Mar 04, 2017 19:09
[2017-03-04] MEDS: ESCITALOPRAM 10 MG TAB PO SCH (20:57)
[2017-03-04] MEDS: ZOLPIDEM 5 MG TAB PO PRN (20:57)
[2017-03-04 21:00] VITALS: BP 107/60; RESP 18
[2017-03-04] MEDS: ATORVASTATIN 80 MG TAB PO SCH ×2 (21:00→21:04)
[2017-03-04 21:04] VITALS: BP 111/52; PULSE 70; RESP 18
--- NOTE | 2017-03-04 21:23 | CONS ---
Date/Time of Note Date/Time of Note DATE: 03/04/17 TIME: 21:23 Assessment/Plan Assessment/Plan Chief Complaint/Hosp Course Hypercoagulable state Acute cerebrovascular accident. The patient will continue current medical management of Eliquis, aspirin, and Lipitor. ANEMIA- COMPLEX, MULTIFACTORIAL LOOKS COMPENSATED AT PRESENT CONT TO MONITOR Seizure disorder. Continue Keppra. Hypertension. Continue current blood pressure regimen. This is status post urinary tract infection. Coronary artery disease. Continue current medical management. Continue statin therapy. Dementia. Paroxysmal atrial fibrillation, currently in sinus rhythm. Anxiety and depression. Continue Lexapro. Gastrointestinal and deep venous thrombosis prophylaxis. Continue proton pump inhibitor and Eliquis Problems: Consultation Date/Type/Reason Admit Date/Time Feb 24, 2017 at 18:19 Initial Consult Date 02/25/17 Type of Consultation: [facility] Referring Provider: MEGAN FLORES DO 24 HR Interval Summary Free Text/Dictation ALL NOTED NAD Exam/Review of Systems Vital Signs Vitals Vital Signs Date Time Temp Pulse Resp B/P Pulse Ox O2 Delivery O2 Flow Rate FiO2 03/04/17 21:04 70 18 111/52 Room Air 03/04/17 14:00 98.6 97 Intake and Output 03/03/17 03/03/17 03/04/17 15:00 23:00 07:00 Intake Total 720 ml 360 ml 240 ml Output Total 4 ml 4 ml Balance 716 ml 360 ml 236 ml Exam HEENT: Head is normocephalic. NECK: Supple. HEART: Regular rate. LUNGS: Diminished breath sounds at the base. ABDOMEN: Soft. Nontender to palpation. No guarding. EXTREMITIES: Negative for clubbing, cyanosis, or edema. DERMATOLOGIC: No rashes. MUSCULOSKELETAL: No joint effusion. NEUROLOGIC: The patient has left-sided hemiparesis. No change. Results Result Diagram: 03/02/17 0548 03/02/17 0550 Medications Medications Current Medications Pantoprazole (Protonix Tab) 40 mg DAILY@06 PO Last administered on 03/03/17 08: 45; Admin Dose 40 MG; Start 02/25/17 at 06:00 Polyethylene Glycol (Miralax) 17 gm DAILY PO Last administered on 03/04/17 09: 26; Admin Dose 17 GM; Start 02/25/17 at 09:00 Simethicone (Mylicon) 80 mg TID PRN PO DISTENSION/GAS/BLOATING Last administered on 03/01/17 03:01; Admin Dose 80 MG; Start 02/24/17 at 21:00 Zolpidem Tartrate (Ambien) 5 mg HS PRN PO INSOMNIA Last administered on 20:57; Admin Dose 5 MG; Start 02/24/17 at 21:00 Lactulose (Enulose) 20 gm TID PO Last administered on 03/04/17 13:38; Admin Dose 20 GM; Start 02/24/17 at 21:00 Meclizine HCl (Antivert) 25 mg DAILY PRN PO VERTIGO Last administered on 09:35; Admin Dose 25 MG; Start 02/24/17 at 21:00 Metoprolol Succinate (Toprol Xl) 12.5 mg BID PO Last administered on 03/04/17 21:04; Admin Dose 12.5 MG; Start 02/24/17 at 21:00 Ondansetron HCl (Zofran Inj) 4 mg Q6H PRN IV NAUSEA AND/OR VOMITING; Start at 21:00 Acetaminophen (Tylenol Tab) 650 mg Q6H PRN PO PAIN AND OR ELEVATED TEMP; Start 02/24/17 at 21:00 Apixaban (Eliquis) 2.5 mg BID PO Last administered on 03/04/17 20:57; Admin Dose 2.5 MG; Start 02/24/17 at 21:00 Aspirin (Aspirin) 81 mg DAILY PO Last administered on 03/04/17 09:28; Admin Dose 81 MG; Start 02/25/17 at 09:00 Atorvastatin Calcium (Lipitor) 80 mg DAILY@21 PO Last administered on 03/02/17 21:04; Admin Dose 80 MG; Start 02/24/17 at 21:00 Clonazepam (Klonopin) 0.25 mg BID PO Last administered on 03/04/17 20:57; Admin Dose 0.25 MG; Start 02/24/17 at 21:00 Gentamicin Sulfate (Gentamicin 0.3% Oph Drop) 1 drop Q4HWA BOTH EYES Last administered on 03/04/17 13:39; Admin Dose 1 DROP; Start 02/24/17 at 21:00 Escitalopram Oxalate (Lexapro) 10 mg QHS PO Last administered on 03/04/17 20:57 ; Admin Dose 10 MG; Start 02/24/17 at 21:00 Docusate Sodium (Colace) 100 mg BID PO Last administered on 03/04/17 20:56; Admin Dose 100 MG; Start 02/24/17 at 21:00 Clonidine (Catapres) 0.1 mg Q6H PRN PO SBP > 170; Start 02/24/17 at 21:00 Bisacodyl (Dulcolax Supp) 10 mg DAILY PRN [place] CONSTIPATION Last administered on 03/01/17 06:47; Admin Dose 10 MG; Start 02/25/17 at 04:30 Lisinopril (Zestril) 2.5 mg DAILY PO Last administered on 03/04/17 09:25; Admin Dose 2.5 MG; Start 03/01/17 at 09:00 Levetiracetam (Keppra Liquid) 750 mg TID PO Last administered on 03/04/17 20:58 ; Admin Dose 750 MG; Start 02/28/17 at 23:00 TERRA RANGEL MD Mar 04, 2017 21:23
[2017-03-05] MEDS: GENTAMICIN 0.3% 5 ML OPH BOTH EYES SCH ×2 (01:00→05:00)
[2017-03-05 02:00] VITALS: BP 110/62; RESP 18
[2017-03-05] MEDS: PANTOPRAZOLE (EC) 40 MG TAB PO SCH (06:36)
[2017-03-05 07:30] VITALS: BP 100/66; RESP 18
[2017-03-05] MEDS: APIXABAN 5 MG TABLET PO SCH ×2 (09:00→20:48)
[2017-03-05] MEDS: DOCUSATE SODIUM 100 MG CAP PO SCH ×2 (09:00→20:45)
[2017-03-05] MEDS: METOPROLOL (XL) 25 MG TAB PO SCH ×2 (09:00→20:46)
[2017-03-05] MEDS: ASPIRIN 81 MG TAB PO SCH (09:00)
[2017-03-05] MEDS: clonAZEPAM 0.5 MG TAB PO SCH ×2 (09:00→20:46)
[2017-03-05] MEDS: LISINOPRIL 5 MG TAB PO SCH (09:00)
[2017-03-05] MEDS: POLYETHYLENE GLYCOL 17 GM PACKET PO SCH (09:01)
[2017-03-05] MEDS: LEVETIRACETAM (100 MG/ML) 5ML CUP PO SCH ×3 (09:01→20:51)
[2017-03-05] MEDS: LACTULOSE 30ML CUP PO SCH ×3 (09:01→20:51)
--- NOTE | 2017-03-05 10:40 | CONS ---
Date/Time of Note Date/Time of Note DATE: 03/05/17 TIME: 10:38 Consult Date/Type/Reason Admit Date/Time Feb 24, 2017 at 18:19 Initial Consult Date 02/25/17 Type of Consultation: [facility] Ordering Provider: MEGAN FLORES DO Subjective "I feel good" Objective pulm-cta max assist transfer Vital Signs Date Time Temp Pulse Resp B/P Pulse Ox O2 Delivery O2 Flow Rate FiO2 03/05/17 07:30 97.9 66 18 100/66 96 03/04/17 21:04 Room Air Intake and Output 03/04/17 03/04/17 03/05/17 14:59 22:59 06:59 Intake Total 640 ml 940 ml Output Total 1 ml Balance 639 ml 940 ml Results/Medications Result Diagram: 03/02/17 0548 03/02/17 0550 Medications Current Medications Pantoprazole (Protonix Tab) 40 mg DAILY@06 PO Last administered on 03/05/17 06: 36; Admin Dose 40 MG; Start 02/25/17 at 06:00 Polyethylene Glycol (Miralax) 17 gm DAILY PO Last administered on 03/05/17 09: 01; Admin Dose 17 GM; Start 02/25/17 at 09:00 Simethicone (Mylicon) 80 mg TID PRN PO DISTENSION/GAS/BLOATING Last administered on 03/01/17 03:01; Admin Dose 80 MG; Start 02/24/17 at 21:00 Zolpidem Tartrate (Ambien) 5 mg HS PRN PO INSOMNIA Last administered on 20:57; Admin Dose 5 MG; Start 02/24/17 at 21:00 Lactulose (Enulose) 20 gm TID PO Last administered on 03/05/17 09:01; Admin Dose 20 GM; Start 02/24/17 at 21:00 Meclizine HCl (Antivert) 25 mg DAILY PRN PO VERTIGO Last administered on 09:35; Admin Dose 25 MG; Start 02/24/17 at 21:00 Metoprolol Succinate (Toprol Xl) 12.5 mg BID PO Last administered on 03/04/17 21:04; Admin Dose 12.5 MG; Start 02/24/17 at 21:00 Ondansetron HCl (Zofran Inj) 4 mg Q6H PRN IV NAUSEA AND/OR VOMITING; Start at 21:00 Acetaminophen (Tylenol Tab) 650 mg Q6H PRN PO PAIN AND OR ELEVATED TEMP; Start 02/24/17 at 21:00 Apixaban (Eliquis) 2.5 mg BID PO Last administered on 03/05/17 09:00; Admin Dose 2.5 MG; Start 02/24/17 at 21:00 Aspirin (Aspirin) 81 mg DAILY PO Last administered on 03/05/17 09:00; Admin Dose 81 MG; Start 02/25/17 at 09:00 Atorvastatin Calcium (Lipitor) 80 mg DAILY@21 PO Last administered on 03/02/17 21:04; Admin Dose 80 MG; Start 02/24/17 at 21:00 Clonazepam (Klonopin) 0.25 mg BID PO Last administered on 03/05/17 09:00; Admin Dose 0.25 MG; Start 02/24/17 at 21:00 Escitalopram Oxalate (Lexapro) 10 mg QHS PO Last administered on 03/04/17 20:57 ; Admin Dose 10 MG; Start 02/24/17 at 21:00 Docusate Sodium (Colace) 100 mg BID PO Last administered on 03/05/17 09:00; Admin Dose 100 MG; Start 02/24/17 at 21:00 Clonidine (Catapres) 0.1 mg Q6H PRN PO SBP > 170; Start 02/24/17 at 21:00 Bisacodyl (Dulcolax Supp) 10 mg DAILY PRN [place] CONSTIPATION Last administered on 03/01/17 06:47; Admin Dose 10 MG; Start 02/25/17 at 04:30 Lisinopril (Zestril) 2.5 mg DAILY PO Last administered on 03/04/17 09:25; Admin Dose 2.5 MG; Start 03/01/17 at 09:00 Levetiracetam (Keppra Liquid) 750 mg TID PO Last administered on 03/05/17 09:01 ; Admin Dose 750 MG; Start 02/28/17 at 23:00 Assessment/Plan Additional Assessment/Plan Rehab- 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 Continue rehabinterdisciplinary program Possible seizure disorder. Hypertension. Urinary tract infection. Coronary artery disease. Dyslipidemia. Paroxysmal atrial fibrillation. Anemia. History of cerebrovascular accident. FARIDEH COOK MD Mar 05, 2017 10:40
--- NOTE | 2017-03-05 10:58 | PN ---
DATE: 03/05/2017 SUBJECTIVE DATA: The patient is stable. No events overnight. No fevers, chills, nausea, vomiting. OBJECTIVE DATA: VITAL SIGNS: Blood pressure is 166. Pulse 66, respiration 18, temperature 97.9. HEENT: Head is normocephalic. NECK: Supple. HEART: Regular rate. LUNGS: Diminished breath sounds at the base. ABDOMEN: Soft, nontender to palpation. No guarding. EXTREMITIES: Negative for clubbing, cyanosis. No edema. DERMATOLOGIC: No rashes. MUSCULOSKELETAL: No joint effusion. NEUROLOGIC: No change in exam. MEDICATIONS: Reviewed. LABORATORY AND DIAGNOSTIC DATA: Reviewed. ASSESSMENT AND PLAN: 1. Acute cerebrovascular accident with left-sided hemiparesis. The patient is stable. Continue with aspirin and Lipitor. 2. Seizure disorder. Continue Keppra. 3. Hypertension. Continue current blood pressure regimen. 4. Anemia. Monitor hemoglobin and hematocrit. 5. Dyslipidemia. Continue current therapy. 6. Paroxysmal atrial fibrillation, currently in sinus rhythm. Continue medical management. 7. History of coronary artery disease. 8. Gastrointestinal and deep venous thrombosis prophylaxis. 9. Depression. 10. History of dementia. Dictated By: Derrick Bloom DO /anders/jessica /Document#: [id number]
--- NOTE | 2017-03-05 13:56 | CONS ---
Date/Time of Note Date/Time of Note DATE: 03/05/17 TIME: 13:55 Assessment/Plan Assessment/Plan Chief Complaint/Hosp Course Hypercoagulable state Acute cerebrovascular accident. The patient will continue current medical management of Eliquis, aspirin, and Lipitor. ANEMIA- COMPLEX, MULTIFACTORIAL LOOKS COMPENSATED AT PRESENT CONT TO MONITOR Seizure disorder. Continue Keppra. Hypertension. Continue current blood pressure regimen. This is status post urinary tract infection. Coronary artery disease. Continue current medical management. Continue statin therapy. Dementia. Paroxysmal atrial fibrillation, currently in sinus rhythm. Anxiety and depression. Continue Lexapro. Gastrointestinal and deep venous thrombosis prophylaxis. Continue proton pump inhibitor and Eliquis Problems: Consultation Date/Type/Reason Admit Date/Time Feb 24, 2017 at 18:19 Initial Consult Date 02/25/17 Type of Consultation: [facility] Referring Provider: MEGAN FLORES DO 24 HR Interval Summary Free Text/Dictation ALL NOTED NAD Exam/Review of Systems Vital Signs Vitals Vital Signs Date Time Temp Pulse Resp B/P Pulse Ox O2 Delivery O2 Flow Rate FiO2 03/05/17 07:30 97.9 66 18 100/66 96 03/04/17 21:04 Room Air Intake and Output 03/04/17 03/04/17 03/05/17 15:00 23:00 07:00 Intake Total 640 ml 940 ml Output Total 1 ml Balance 639 ml 940 ml Exam HEENT: Head is normocephalic. NECK: Supple. HEART: Regular rate. LUNGS: Diminished breath sounds at the base. ABDOMEN: Soft. Nontender to palpation. No guarding. EXTREMITIES: Negative for clubbing, cyanosis, or edema. DERMATOLOGIC: No rashes. MUSCULOSKELETAL: No joint effusion. NEUROLOGIC: The patient has left-sided hemiparesis. No change. Results Result Diagram: 03/02/17 0548 03/02/17 0550 Medications Medications Current Medications Pantoprazole (Protonix Tab) 40 mg DAILY@06 PO Last administered on 03/05/17 06: 36; Admin Dose 40 MG; Start 02/25/17 at 06:00 Polyethylene Glycol (Miralax) 17 gm DAILY PO Last administered on 03/05/17 09: 01; Admin Dose 17 GM; Start 02/25/17 at 09:00 Simethicone (Mylicon) 80 mg TID PRN PO DISTENSION/GAS/BLOATING Last administered on 03/01/17 03:01; Admin Dose 80 MG; Start 02/24/17 at 21:00 Zolpidem Tartrate (Ambien) 5 mg HS PRN PO INSOMNIA Last administered on 20:57; Admin Dose 5 MG; Start 02/24/17 at 21:00 Lactulose (Enulose) 20 gm TID PO Last administered on 03/05/17 09:01; Admin Dose 20 GM; Start 02/24/17 at 21:00 Meclizine HCl (Antivert) 25 mg DAILY PRN PO VERTIGO Last administered on 09:35; Admin Dose 25 MG; Start 02/24/17 at 21:00 Metoprolol Succinate (Toprol Xl) 12.5 mg BID PO Last administered on 03/04/17 21:04; Admin Dose 12.5 MG; Start 02/24/17 at 21:00 Ondansetron HCl (Zofran Inj) 4 mg Q6H PRN IV NAUSEA AND/OR VOMITING; Start at 21:00 Acetaminophen (Tylenol Tab) 650 mg Q6H PRN PO PAIN AND OR ELEVATED TEMP; Start 02/24/17 at 21:00 Apixaban (Eliquis) 2.5 mg BID PO Last administered on 03/05/17 09:00; Admin Dose 2.5 MG; Start 02/24/17 at 21:00 Aspirin (Aspirin) 81 mg DAILY PO Last administered on 03/05/17 09:00; Admin Dose 81 MG; Start 02/25/17 at 09:00 Atorvastatin Calcium (Lipitor) 80 mg DAILY@21 PO Last administered on 03/02/17 21:04; Admin Dose 80 MG; Start 02/24/17 at 21:00 Clonazepam (Klonopin) 0.25 mg BID PO Last administered on 03/05/17 09:00; Admin Dose 0.25 MG; Start 02/24/17 at 21:00 Escitalopram Oxalate (Lexapro) 10 mg QHS PO Last administered on 03/04/17 20:57 ; Admin Dose 10 MG; Start 02/24/17 at 21:00 Docusate Sodium (Colace) 100 mg BID PO Last administered on 03/05/17 09:00; Admin Dose 100 MG; Start 02/24/17 at 21:00 Clonidine (Catapres) 0.1 mg Q6H PRN PO SBP > 170; Start 02/24/17 at 21:00 Bisacodyl (Dulcolax Supp) 10 mg DAILY PRN [place] CONSTIPATION Last administered on 03/01/17 06:47; Admin Dose 10 MG; Start 02/25/17 at 04:30 Lisinopril (Zestril) 2.5 mg DAILY PO Last administered on 03/04/17 09:25; Admin Dose 2.5 MG; Start 03/01/17 at 09:00 Levetiracetam (Keppra Liquid) 750 mg TID PO Last administered on 03/05/17 12:32 ; Admin Dose 750 MG; Start 02/28/17 at 23:00 TERRA RANGEL MD Mar 05, 2017 13:56
[2017-03-05 14:00] VITALS: BP 103/55; RESP 18
--- NOTE | 2017-03-05 16:24 | CONS ---
Date/Time of Note Date/Time of Note DATE: 03/05/17 TIME: 16:23 Assessment/Plan Assessment/Plan Chief Complaint/Hosp Course IMPRESSION: 1. Syncope. -NL EF by echo/RV enlargement with NL RV function/negative trop x 3/negative orthostatics/no sig arrythmias by ecg. Area of acute infarct by MRI 2. Hypertension-well controlled and tolerating medications 3. Dyslipidemia. 4. History of cerebrovascular accident. 5. Dementia. 6. Possible urinary tract infection. 7. PAF on xarelto/BB 8. H/O cva-acute on chronic by MRI this admit Recc: -Now transferred to rehab -continue keppra -Continue low dose BB as tolerated and follow BP closely -Hold ACEI given marginal BP -Continue statin -Continue eliquis -PT/OT Problems: Consultation Date/Type/Reason Admit Date/Time Feb 24, 2017 at 18:19 Initial Consult Date 02/25/17 Type of Consultation: cardiology Reason for Consultation syncope Referring Provider: MEGAN FLORES DO Exam/Review of Systems Vital Signs Vitals Vital Signs Date Time Temp Pulse Resp B/P Pulse Ox O2 Delivery O2 Flow Rate FiO2 03/05/17 14:00 98.5 70 18 103/55 95 03/04/17 21:04 Room Air Intake and Output 03/04/17 03/04/17 03/05/17 15:00 23:00 07:00 Intake Total 640 ml 940 ml Output Total 1 ml Balance 639 ml 940 ml Exam Review of Systems: CONSTITUTIONAL: No fevers, chills. PULMONARY: No sob CARDIOVASCULAR: No chest pain/palpitations GASTROINTESTINAL: No nausea/vomiting. GENITOURINARY: No hematuria/dysuria. MUSCULOSKELETAL: No myagias/arthalgias. PSYCHIATRIC: The patient denies depression. NEUROLOGIC: No weakness Constitutional: alert Psych: no complaints Head: normocephalic ENMT: mucosa pink and moist Neck: jvd (8 cm water), supple Cardiovascular: regular rate and rhythm Gastrointestinal: non-tender, soft Musculoskeletal: muscle weakness (mild generalized) Extremities: edema (none) Neurological: other (no focal deficits) Results Result Diagram: 03/02/17 0548 03/02/17 0550 Medications Medications Current Medications Pantoprazole (Protonix Tab) 40 mg DAILY@06 PO Last administered on 03/05/17 06: 36; Admin Dose 40 MG; Start 02/25/17 at 06:00 Polyethylene Glycol (Miralax) 17 gm DAILY PO Last administered on 03/05/17 09: 01; Admin Dose 17 GM; Start 02/25/17 at 09:00 Simethicone (Mylicon) 80 mg TID PRN PO DISTENSION/GAS/BLOATING Last administered on 03/01/17 03:01; Admin Dose 80 MG; Start 02/24/17 at 21:00 Zolpidem Tartrate (Ambien) 5 mg HS PRN PO INSOMNIA Last administered on 20:57; Admin Dose 5 MG; Start 02/24/17 at 21:00 Lactulose (Enulose) 20 gm TID PO Last administered on 03/05/17 09:01; Admin Dose 20 GM; Start 02/24/17 at 21:00 Meclizine HCl (Antivert) 25 mg DAILY PRN PO VERTIGO Last administered on 09:35; Admin Dose 25 MG; Start 02/24/17 at 21:00 Metoprolol Succinate (Toprol Xl) 12.5 mg BID PO Last administered on 03/04/17 21:04; Admin Dose 12.5 MG; Start 02/24/17 at 21:00 Ondansetron HCl (Zofran Inj) 4 mg Q6H PRN IV NAUSEA AND/OR VOMITING; Start at 21:00 Acetaminophen (Tylenol Tab) 650 mg Q6H PRN PO PAIN AND OR ELEVATED TEMP; Start 02/24/17 at 21:00 Apixaban (Eliquis) 2.5 mg BID PO Last administered on 03/05/17 09:00; Admin Dose 2.5 MG; Start 02/24/17 at 21:00 Aspirin (Aspirin) 81 mg DAILY PO Last administered on 03/05/17 09:00; Admin Dose 81 MG; Start 02/25/17 at 09:00 Atorvastatin Calcium (Lipitor) 80 mg DAILY@21 PO Last administered on 03/02/17 21:04; Admin Dose 80 MG; Start 02/24/17 at 21:00 Clonazepam (Klonopin) 0.25 mg BID PO Last administered on 03/05/17 09:00; Admin Dose 0.25 MG; Start 02/24/17 at 21:00 Escitalopram Oxalate (Lexapro) 10 mg QHS PO Last administered on 03/04/17 20:57 ; Admin Dose 10 MG; Start 02/24/17 at 21:00 Docusate Sodium (Colace) 100 mg BID PO Last administered on 03/05/17 09:00; Admin Dose 100 MG; Start 02/24/17 at 21:00 Clonidine (Catapres) 0.1 mg Q6H PRN PO SBP > 170; Start 02/24/17 at 21:00 Bisacodyl (Dulcolax Supp) 10 mg DAILY PRN [place] CONSTIPATION Last administered on 03/01/17 06:47; Admin Dose 10 MG; Start 02/25/17 at 04:30 Lisinopril (Zestril) 2.5 mg DAILY PO Last administered on 03/04/17 09:25; Admin Dose 2.5 MG; Start 03/01/17 at 09:00 Levetiracetam (Keppra Liquid) 750 mg TID PO Last administered on 03/05/17 12:32 ; Admin Dose 750 MG; Start 02/28/17 at 23:00 DAVID TESFAYE Mar 05, 2017 16:24
[2017-03-05 20:00] VITALS: BP 132/70; RESP 18
[2017-03-05] MEDS: ATORVASTATIN 80 MG TAB PO SCH (20:45)
[2017-03-05] MEDS: ZOLPIDEM 5 MG TAB PO PRN (20:45)
[2017-03-05] MEDS: ESCITALOPRAM 10 MG TAB PO SCH (20:45)
[2017-03-06 02:00] VITALS: BP 120/68; RESP 18
[2017-03-06] MEDS: PANTOPRAZOLE (EC) 40 MG TAB PO SCH (06:46)
[2017-03-06 08:00] VITALS: BP 115/61; RESP 18
[2017-03-06] MEDS: LEVETIRACETAM (100 MG/ML) 5ML CUP PO SCH ×3 (09:23→20:49)
[2017-03-06] MEDS: LACTULOSE 30ML CUP PO SCH ×3 (09:23→20:50)
[2017-03-06] MEDS: POLYETHYLENE GLYCOL 17 GM PACKET PO SCH (09:23)
[2017-03-06] MEDS: APIXABAN 5 MG TABLET PO SCH ×2 (09:23→20:48)
[2017-03-06] MEDS: ASPIRIN 81 MG TAB PO SCH (09:24)
[2017-03-06] MEDS: METOPROLOL (XL) 25 MG TAB PO SCH ×2 (09:24→20:49)
[2017-03-06] MEDS: DOCUSATE SODIUM 100 MG CAP PO SCH ×2 (09:24→20:48)
[2017-03-06] MEDS: clonAZEPAM 0.5 MG TAB PO SCH ×2 (09:25→20:48)
--- NOTE | 2017-03-06 12:01 | CONS ---
Date/Time of Note Date/Time of Note DATE: 03/06/17 TIME: 12:00 Consult Date/Type/Reason Admit Date/Time Feb 24, 2017 at 18:19 Initial Consult Date 02/25/17 Type of Consultation: cardiology Ordering Provider: MEGAN FLORES DO Subjective Patient up for therapy Objective Lungs clear abdomen soft Maximal assist Vital Signs Date Time Temp Pulse Resp B/P Pulse Ox O2 Delivery O2 Flow Rate FiO2 03/06/17 08:00 97.9 58 18 115/61 97 03/04/17 21:04 Room Air Intake and Output 03/05/17 03/05/17 03/06/17 15:00 23:00 07:00 Intake Total 860 ml 830 ml Output Total 1 ml Balance 859 ml 830 ml Results/Medications Result Diagram: 03/02/17 0548 03/02/17 0550 Medications Current Medications Pantoprazole (Protonix Tab) 40 mg DAILY@06 PO Last administered on 03/06/17 06: 46; Admin Dose 40 MG; Start 02/25/17 at 06:00 Polyethylene Glycol (Miralax) 17 gm DAILY PO Last administered on 03/06/17 09: 23; Admin Dose 17 GM; Start 02/25/17 at 09:00 Simethicone (Mylicon) 80 mg TID PRN PO DISTENSION/GAS/BLOATING Last administered on 03/01/17 03:01; Admin Dose 80 MG; Start 02/24/17 at 21:00 Zolpidem Tartrate (Ambien) 5 mg HS PRN PO INSOMNIA Last administered on 20:45; Admin Dose 5 MG; Start 02/24/17 at 21:00 Lactulose (Enulose) 20 gm TID PO Last administered on 03/06/17 09:23; Admin Dose 20 GM; Start 02/24/17 at 21:00 Meclizine HCl (Antivert) 25 mg DAILY PRN PO VERTIGO Last administered on 09:35; Admin Dose 25 MG; Start 02/24/17 at 21:00 Metoprolol Succinate (Toprol Xl) 12.5 mg BID PO Last administered on 03/06/17 09:24; Admin Dose 12.5 MG; Start 02/24/17 at 21:00 Ondansetron HCl (Zofran Inj) 4 mg Q6H PRN IV NAUSEA AND/OR VOMITING; Start at 21:00 Acetaminophen (Tylenol Tab) 650 mg Q6H PRN PO PAIN AND OR ELEVATED TEMP; Start 02/24/17 at 21:00 Apixaban (Eliquis) 2.5 mg BID PO Last administered on 03/06/17 09:23; Admin Dose 2.5 MG; Start 02/24/17 at 21:00 Aspirin (Aspirin) 81 mg DAILY PO Last administered on 03/06/17 09:24; Admin Dose 81 MG; Start 02/25/17 at 09:00 Atorvastatin Calcium (Lipitor) 80 mg DAILY@21 PO Last administered on 03/05/17 20:45; Admin Dose 80 MG; Start 02/24/17 at 21:00 Clonazepam (Klonopin) 0.25 mg BID PO Last administered on 03/06/17 09:25; Admin Dose 0.25 MG; Start 02/24/17 at 21:00 Escitalopram Oxalate (Lexapro) 10 mg QHS PO Last administered on 03/05/17 20:45 ; Admin Dose 10 MG; Start 02/24/17 at 21:00 Docusate Sodium (Colace) 100 mg BID PO Last administered on 03/06/17 09:24; Admin Dose 100 MG; Start 02/24/17 at 21:00 Clonidine (Catapres) 0.1 mg Q6H PRN PO SBP > 170; Start 02/24/17 at 21:00 Bisacodyl (Dulcolax Supp) 10 mg DAILY PRN [place] CONSTIPATION Last administered on 03/01/17 06:47; Admin Dose 10 MG; Start 02/25/17 at 04:30 Levetiracetam (Keppra Liquid) 750 mg TID PO Last administered on 03/06/17 09:23 ; Admin Dose 750 MG; Start 02/28/17 at 23:00 Assessment/Plan Additional Assessment/Plan Rehab- 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 Continue rehab treatment plan Possible seizure disorder. Hypertension. Urinary tract infection. Coronary artery disease. Dyslipidemia. Paroxysmal atrial fibrillation. Anemia. History of cerebrovascular accident. FARIDEH COOK MD Mar 06, 2017 12:01
--- NOTE | 2017-03-06 13:07 | PN ---
DATE: 03/06/2017 SUBJECTIVE DATA: Patient is stable. No events overnight. No fevers, chills, nausea or vomiting. OBJECTIVE DATA: VITAL SIGNS: Blood pressure is 132/72, temperature 98.5, pulse 78, and respirations 18. HEENT: Head is normocephalic. NECK: Supple. HEART: Regular rate. LUNGS: Diminished breath sounds at the base. ABDOMEN: Soft, nontender to palpation. No rebound or guarding. EXTREMITIES: Negative for clubbing, cyanosis. No edema. DERMATOLOGIC: No rashes. MUSCULOSKELETAL: No joint effusion. NEUROLOGIC: No change in exam. MEDICATIONS: Reviewed. LABORATORY AND DIAGNOSTIC DATA: Reviewed. ASSESSMENT AND PLAN: 1. Acute cerebrovascular accident with right-sided hemiparesis. The patient is currently stable. Continue aspirin, and Lipitor. 2. Seizure disorder. Continue Keppra. 3. Hypertension. Continue current blood pressure regimen. 4. Anemia. Monitor hemoglobin and hematocrit levels. 5. Anemia. Continue statin therapy. 6. Paroxysmal atrial fibrillation. Currently sinus rhythm. Continue medical management. 7. History of coronary artery disease. 8. Gastrointestinal and deep venous thrombosis prophylaxis. 9. Depression. 10. History of dementia. Dictated By: Derrick Bloom DO /anders/jessica /Document#: [id number]
--- NOTE | 2017-03-06 14:38 | CONS ---
Date/Time of Note Date/Time of Note DATE: 03/06/17 TIME: 14:34 Assessment/Plan Assessment/Plan Additional Assessment/Plan Syncope. Stroke Hypertension dyslipidemia dementia PAF clinically stable Continue Metoprolol Continue ASA Continue Eliquis Continue Lipitor Consultation Date/Type/Reason Admit Date/Time Feb 24, 2017 at 18:19 Psychological: no complaints Past Surgical History Past Surgical Hx: no surgical history Social History Smoking Status: Never smoker Exam/Review of Systems Vital Signs Vitals Vital Signs Date Time Temp Pulse Resp B/P Pulse Ox O2 Delivery O2 Flow Rate FiO2 03/06/17 08:00 97.9 58 18 115/61 97 03/04/17 21:04 Room Air Intake and Output 03/05/17 03/05/17 03/06/17 15:00 23:00 07:00 Intake Total 860 ml 830 ml Output Total 1 ml Balance 859 ml 830 ml Exam Constitutional: alert, oriented Head: atraumatic, normocephalic Neck: non-tender, supple Respiratory: clear to auscultation Cardiovascular: regular rate and rhythm Gastrointestinal: nl liver, spleen, non-tender, soft Extremities: normal pulses Results Result Diagram: 03/02/17 0548 03/02/17 0550 Medications Medications Current Medications Pantoprazole (Protonix Tab) 40 mg DAILY@06 PO Last administered on 03/06/17 06: 46; Admin Dose 40 MG; Start 02/25/17 at 06:00 Polyethylene Glycol (Miralax) 17 gm DAILY PO Last administered on 03/06/17 09: 23; Admin Dose 17 GM; Start 02/25/17 at 09:00 Simethicone (Mylicon) 80 mg TID PRN PO DISTENSION/GAS/BLOATING Last administered on 03/01/17 03:01; Admin Dose 80 MG; Start 02/24/17 at 21:00 Zolpidem Tartrate (Ambien) 5 mg HS PRN PO INSOMNIA Last administered on 20:45; Admin Dose 5 MG; Start 02/24/17 at 21:00 Lactulose (Enulose) 20 gm TID PO Last administered on 03/06/17 12:05; Admin Dose 20 GM; Start 02/24/17 at 21:00 Meclizine HCl (Antivert) 25 mg DAILY PRN PO VERTIGO Last administered on 09:35; Admin Dose 25 MG; Start 02/24/17 at 21:00 Metoprolol Succinate (Toprol Xl) 12.5 mg BID PO Last administered on 03/06/17 09:24; Admin Dose 12.5 MG; Start 02/24/17 at 21:00 Ondansetron HCl (Zofran Inj) 4 mg Q6H PRN IV NAUSEA AND/OR VOMITING; Start at 21:00 Acetaminophen (Tylenol Tab) 650 mg Q6H PRN PO PAIN AND OR ELEVATED TEMP; Start 02/24/17 at 21:00 Apixaban (Eliquis) 2.5 mg BID PO Last administered on 03/06/17 09:23; Admin Dose 2.5 MG; Start 02/24/17 at 21:00 Aspirin (Aspirin) 81 mg DAILY PO Last administered on 03/06/17 09:24; Admin Dose 81 MG; Start 02/25/17 at 09:00 Atorvastatin Calcium (Lipitor) 80 mg DAILY@21 PO Last administered on 03/05/17 20:45; Admin Dose 80 MG; Start 02/24/17 at 21:00 Clonazepam (Klonopin) 0.25 mg BID PO Last administered on 03/06/17 09:25; Admin Dose 0.25 MG; Start 02/24/17 at 21:00 Escitalopram Oxalate (Lexapro) 10 mg QHS PO Last administered on 03/05/17 20:45 ; Admin Dose 10 MG; Start 02/24/17 at 21:00 Docusate Sodium (Colace) 100 mg BID PO Last administered on 03/06/17 09:24; Admin Dose 100 MG; Start 02/24/17 at 21:00 Clonidine (Catapres) 0.1 mg Q6H PRN PO SBP > 170; Start 02/24/17 at 21:00 Bisacodyl (Dulcolax Supp) 10 mg DAILY PRN [place] CONSTIPATION Last administered on 03/01/17 06:47; Admin Dose 10 MG; Start 02/25/17 at 04:30 Levetiracetam (Keppra Liquid) 750 mg TID PO Last administered on 03/06/17 12:05 ; Admin Dose 750 MG; Start 02/28/17 at 23:00 NOAH QUISPE M.D. Mar 06, 2017 14:38
[2017-03-06 20:00] VITALS: BP 140/70; RESP 18
[2017-03-06] MEDS: ESCITALOPRAM 10 MG TAB PO SCH (20:48)
[2017-03-06] MEDS: ATORVASTATIN 80 MG TAB PO SCH (20:48)
--- NOTE | 2017-03-06 21:54 | CONS ---
Date/Time of Note Date/Time of Note DATE: 03/06/17 TIME: 21:54 Assessment/Plan Assessment/Plan Chief Complaint/Hosp Course Hypercoagulable state Acute cerebrovascular accident. The patient will continue current medical management of Eliquis, aspirin, and Lipitor. ANEMIA- COMPLEX, MULTIFACTORIAL LOOKS COMPENSATED AT PRESENT CONT TO MONITOR Seizure disorder. Continue Keppra. Hypertension. Continue current blood pressure regimen. This is status post urinary tract infection. Coronary artery disease. Continue current medical management. Continue statin therapy. Dementia. Paroxysmal atrial fibrillation, currently in sinus rhythm. Anxiety and depression. Continue Lexapro. Gastrointestinal and deep venous thrombosis prophylaxis. Continue proton pump inhibitor and Eliquis Problems: Consultation Date/Type/Reason Admit Date/Time Feb 24, 2017 at 18:19 Initial Consult Date 02/25/17 Type of Consultation: [facility] Referring Provider: MEGAN FLORES DO 24 HR Interval Summary Free Text/Dictation ALL NOTED Exam/Review of Systems Vital Signs Vitals Vital Signs Date Time Temp Pulse Resp B/P Pulse Ox O2 Delivery O2 Flow Rate FiO2 03/06/17 20:00 98.5 80 18 140/70 96 03/04/17 21:04 Room Air Intake and Output 03/05/17 03/05/17 03/06/17 15:00 23:00 07:00 Intake Total 860 ml 830 ml Output Total 1 ml Balance 859 ml 830 ml Exam HEENT: Head is normocephalic. NECK: Supple. HEART: Regular rate. LUNGS: Diminished breath sounds at the base. ABDOMEN: Soft. Nontender to palpation. No guarding. EXTREMITIES: Negative for clubbing, cyanosis, or edema. DERMATOLOGIC: No rashes. MUSCULOSKELETAL: No joint effusion. NEUROLOGIC: The patient has left-sided hemiparesis. No change. Results Result Diagram: 03/02/17 0548 03/02/17 0550 Medications Medications Current Medications Pantoprazole (Protonix Tab) 40 mg DAILY@06 PO Last administered on 03/06/17 06: 46; Admin Dose 40 MG; Start 02/25/17 at 06:00 Polyethylene Glycol (Miralax) 17 gm DAILY PO Last administered on 03/06/17 09: 23; Admin Dose 17 GM; Start 02/25/17 at 09:00 Simethicone (Mylicon) 80 mg TID PRN PO DISTENSION/GAS/BLOATING Last administered on 03/01/17 03:01; Admin Dose 80 MG; Start 02/24/17 at 21:00 Zolpidem Tartrate (Ambien) 5 mg HS PRN PO INSOMNIA Last administered on 20:45; Admin Dose 5 MG; Start 02/24/17 at 21:00 Lactulose (Enulose) 20 gm TID PO Last administered on 03/06/17 20:50; Admin Dose 20 GM; Start 02/24/17 at 21:00 Meclizine HCl (Antivert) 25 mg DAILY PRN PO VERTIGO Last administered on 09:35; Admin Dose 25 MG; Start 02/24/17 at 21:00 Metoprolol Succinate (Toprol Xl) 12.5 mg BID PO Last administered on 03/06/17 20:49; Admin Dose 12.5 MG; Start 02/24/17 at 21:00 Ondansetron HCl (Zofran Inj) 4 mg Q6H PRN IV NAUSEA AND/OR VOMITING; Start at 21:00 Acetaminophen (Tylenol Tab) 650 mg Q6H PRN PO PAIN AND OR ELEVATED TEMP; Start 02/24/17 at 21:00 Apixaban (Eliquis) 2.5 mg BID PO Last administered on 03/06/17 20:48; Admin Dose 2.5 MG; Start 02/24/17 at 21:00 Aspirin (Aspirin) 81 mg DAILY PO Last administered on 03/06/17 09:24; Admin Dose 81 MG; Start 02/25/17 at 09:00 Atorvastatin Calcium (Lipitor) 80 mg DAILY@21 PO Last administered on 03/06/17 20:48; Admin Dose 80 MG; Start 02/24/17 at 21:00 Clonazepam (Klonopin) 0.25 mg BID PO Last administered on 03/06/17 20:48; Admin Dose 0.25 MG; Start 02/24/17 at 21:00 Escitalopram Oxalate (Lexapro) 10 mg QHS PO Last administered on 03/06/17 20:48 ; Admin Dose 10 MG; Start 02/24/17 at 21:00 Docusate Sodium (Colace) 100 mg BID PO Last administered on 03/06/17 20:48; Admin Dose 100 MG; Start 02/24/17 at 21:00 Clonidine (Catapres) 0.1 mg Q6H PRN PO SBP > 170; Start 02/24/17 at 21:00 Bisacodyl (Dulcolax Supp) 10 mg DAILY PRN [place] CONSTIPATION Last administered on 03/01/17 06:47; Admin Dose 10 MG; Start 02/25/17 at 04:30 Levetiracetam (Keppra Liquid) 750 mg TID PO Last administered on 03/06/17 20:49 ; Admin Dose 750 MG; Start 02/28/17 at 23:00 TERRA RANGEL MD Mar 06, 2017 21:54
[2017-03-07 02:00] VITALS: BP 134/68; RESP 18
[2017-03-07] MEDS: PANTOPRAZOLE (EC) 40 MG TAB PO SCH (06:38)
[2017-03-07] MEDS: ASPIRIN 81 MG TAB PO SCH (09:18)
[2017-03-07] MEDS: LACTULOSE 30ML CUP PO SCH ×3 (09:18→20:55)
[2017-03-07] MEDS: DOCUSATE SODIUM 100 MG CAP PO SCH ×2 (09:18→20:48)
[2017-03-07] MEDS: METOPROLOL (XL) 25 MG TAB PO SCH ×2 (09:19→20:49)
[2017-03-07] MEDS: LEVETIRACETAM (100 MG/ML) 5ML CUP PO SCH ×3 (09:20→20:48)
[2017-03-07] MEDS: clonAZEPAM 0.5 MG TAB PO SCH ×2 (09:20→20:50)
[2017-03-07] MEDS: POLYETHYLENE GLYCOL 17 GM PACKET PO SCH (09:21)
[2017-03-07] MEDS: APIXABAN 5 MG TABLET PO SCH ×2 (09:21→20:48)
--- NOTE | 2017-03-07 10:39 | PN ---
DATE: 03/07/2017 SUBJECTIVE DATA: The patient is stable. No events overnight. No fevers, chills, nausea, or vomiting. OBJECTIVE DATA: VITAL SIGNS: Blood pressure is 134/68, respirations 18, pulse 78, and temperature 98.4. HEENT: Head is normocephalic. NECK: Supple. HEART: Regular rate. LUNGS: Diminished breath sounds base. ABDOMEN: Soft, nontender to palpation. No rebound or guarding. EXTREMITIES: Negative for clubbing, cyanosis. No edema. DERMATOLOGIC: Clean. No rashes. MUSCULOSKELETAL: No joint effusion. NEUROLOGIC: No change in exam. MEDICATIONS: Reviewed. LABORATORY AND DIAGNOSTIC DATA: Been reviewed. No new labs. ASSESSMENT AND PLAN: 1. Acute cerebrovascular accident with left-sided hemiparesis. The patient is currently stable. Continue current medical management. 2. Seizure disorder. Continue Keppra. 3. Hypertension. Continue current blood pressure regimen. 4. Anemia. Monitor hemoglobin and hematocrit levels. 5. Dyslipidemia. Continue statin therapy. 6. Paroxysmal atrial fibrillation. Currently sinus rhythm. Continue medical management. 7. History of chronic disease. 8. Gastrointestinal (GI) and deep venous thrombosis (DVT) prophylaxis. 9. Depression. 10. History of dementia. Dictated By: Derrick Bloom DO /anders/raiza /Document#: [id number]
--- NOTE | 2017-03-07 13:24 | CONS ---
Date/Time of Note Date/Time of Note DATE: 03/07/17 TIME: 13:23 Assessment/Plan Assessment/Plan Additional Assessment/Plan Syncope. Stroke Hypertension dyslipidemia dementia PAF clinically and hemodynamically stable Continue Metoprolol Continue ASA Continue Eliquis Continue Lipitor Consultation Date/Type/Reason Admit Date/Time Feb 24, 2017 at 18:19 Initial Consult Date 02/25/17 [facility] Referring Provider: MEGAN FLORES DO Exam/Review of Systems Vital Signs Vitals Vital Signs Date Time Temp Pulse Resp B/P Pulse Ox O2 Delivery O2 Flow Rate FiO2 03/07/17 02:00 98.4 78 18 134/68 97 03/04/17 21:04 Room Air Intake and Output 03/06/17 03/06/17 03/07/17 15:00 23:00 07:00 Intake Total 760 ml 520 ml Balance 760 ml 520 ml Exam Constitutional: alert Head: atraumatic, normocephalic Neck: non-tender, supple Respiratory: clear to auscultation Cardiovascular: regular rate and rhythm Gastrointestinal: nl liver, spleen, non-tender, soft Medications Medications Current Medications Pantoprazole (Protonix Tab) 40 mg DAILY@06 PO Last administered on 03/07/17 06 :38; Admin Dose 40 MG; Start 02/25/17 at 06:00 Polyethylene Glycol (Miralax) 17 gm DAILY PO Last administered on 03/07/17 09: 21; Admin Dose 17 GM; Start 02/25/17 at 09:00 Simethicone (Mylicon) 80 mg TID PRN PO DISTENSION/GAS/BLOATING Last administered on 03/01/17 03:01; Admin Dose 80 MG; Start 02/24/17 at 21:00 Zolpidem Tartrate (Ambien) 5 mg HS PRN PO INSOMNIA Last administered on 20:45; Admin Dose 5 MG; Start 02/24/17 at 21:00 Lactulose (Enulose) 20 gm TID PO Last administered on 03/07/17 09:18; Admin Dose 20 GM; Start 02/24/17 at 21:00 Meclizine HCl (Antivert) 25 mg DAILY PRN PO VERTIGO Last administered on 09:35; Admin Dose 25 MG; Start 02/24/17 at 21:00 Metoprolol Succinate (Toprol Xl) 12.5 mg BID PO Last administered on 03/07/17 09:19; Admin Dose 12.5 MG; Start 02/24/17 at 21:00 Ondansetron HCl (Zofran Inj) 4 mg Q6H PRN IV NAUSEA AND/OR VOMITING; Start at 21:00 Acetaminophen (Tylenol Tab) 650 mg Q6H PRN PO PAIN AND OR ELEVATED TEMP; Start 02/24/17 at 21:00 Apixaban (Eliquis) 2.5 mg BID PO Last administered on 03/07/17 09:21; Admin Dose 2.5 MG; Start 02/24/17 at 21:00 Aspirin (Aspirin) 81 mg DAILY PO Last administered on 03/07/17 09:18; Admin Dose 81 MG; Start 02/25/17 at 09:00 Atorvastatin Calcium (Lipitor) 80 mg DAILY@21 PO Last administered on 03/06/17 20:48; Admin Dose 80 MG; Start 02/24/17 at 21:00 Clonazepam (Klonopin) 0.25 mg BID PO Last administered on 03/07/17 09:20; Admin Dose 0.25 MG; Start 02/24/17 at 21:00 Escitalopram Oxalate (Lexapro) 10 mg QHS PO Last administered on 03/06/17 20:48 ; Admin Dose 10 MG; Start 02/24/17 at 21:00 Docusate Sodium (Colace) 100 mg BID PO Last administered on 03/07/17 09:18; Admin Dose 100 MG; Start 02/24/17 at 21:00 Clonidine (Catapres) 0.1 mg Q6H PRN PO SBP > 170; Start 02/24/17 at 21:00 Bisacodyl (Dulcolax Supp) 10 mg DAILY PRN [place] CONSTIPATION Last administered on 03/01/17 06:47; Admin Dose 10 MG; Start 02/25/17 at 04:30 Levetiracetam (Keppra Liquid) 750 mg TID PO Last administered on 03/07/17 09: 20; Admin Dose 750 MG; Start 02/28/17 at 23:00 NOAH QUISPE M.D. Mar 07, 2017 13:24
--- NOTE | 2017-03-07 19:38 | CONS ---
Date/Time of Note Date/Time of Note DATE: 03/07/17 TIME: 19:38 Assessment/Plan Assessment/Plan Chief Complaint/Hosp Course Hypercoagulable state Acute cerebrovascular accident. The patient will continue current medical management of Eliquis, aspirin, and Lipitor. ANEMIA- COMPLEX, MULTIFACTORIAL LOOKS COMPENSATED AT PRESENT CONT TO MONITOR Seizure disorder. Continue Keppra. Hypertension. Continue current blood pressure regimen. This is status post urinary tract infection. Coronary artery disease. Continue current medical management. Continue statin therapy. Dementia. Paroxysmal atrial fibrillation, currently in sinus rhythm. Anxiety and depression. Continue Lexapro. Gastrointestinal and deep venous thrombosis prophylaxis. Continue proton pump inhibitor and Eliquis Problems: Consultation Date/Type/Reason Admit Date/Time Feb 24, 2017 at 18:19 Initial Consult Date 02/25/17 Type of Consultation: [facility] Referring Provider: MGEAN FLORES DO 24 HR Interval Summary Free Text/Dictation STABLE Exam/Review of Systems Vital Signs Vitals Vital Signs Date Time Temp Pulse Resp B/P Pulse Ox O2 Delivery O2 Flow Rate FiO2 03/07/17 02:00 98.4 78 18 134/68 97 03/04/17 21:04 Room Air Intake and Output 03/06/17 03/06/17 03/07/17 15:00 23:00 07:00 Intake Total 760 ml 520 ml Balance 760 ml 520 ml Exam HEENT: Head is normocephalic. NECK: Supple. HEART: Regular rate. LUNGS: Diminished breath sounds at the base. ABDOMEN: Soft. Nontender to palpation. No guarding. EXTREMITIES: Negative for clubbing, cyanosis, or edema. DERMATOLOGIC: No rashes. MUSCULOSKELETAL: No joint effusion. NEUROLOGIC: The patient has left-sided hemiparesis. No change. Medications Medications Current Medications Pantoprazole (Protonix Tab) 40 mg DAILY@06 PO Last administered on 03/07/17 06 :38; Admin Dose 40 MG; Start 02/25/17 at 06:00 Polyethylene Glycol (Miralax) 17 gm DAILY PO Last administered on 03/07/17 09: 21; Admin Dose 17 GM; Start 02/25/17 at 09:00 Simethicone (Mylicon) 80 mg TID PRN PO DISTENSION/GAS/BLOATING Last administered on 03/01/17 03:01; Admin Dose 80 MG; Start 02/24/17 at 21:00 Zolpidem Tartrate (Ambien) 5 mg HS PRN PO INSOMNIA Last administered on 20:45; Admin Dose 5 MG; Start 02/24/17 at 21:00 Lactulose (Enulose) 20 gm TID PO Last administered on 03/07/17 13:28; Admin Dose 20 GM; Start 02/24/17 at 21:00 Meclizine HCl (Antivert) 25 mg DAILY PRN PO VERTIGO Last administered on 09:35; Admin Dose 25 MG; Start 02/24/17 at 21:00 Metoprolol Succinate (Toprol Xl) 12.5 mg BID PO Last administered on 03/07/17 09:19; Admin Dose 12.5 MG; Start 02/24/17 at 21:00 Ondansetron HCl (Zofran Inj) 4 mg Q6H PRN IV NAUSEA AND/OR VOMITING; Start at 21:00 Acetaminophen (Tylenol Tab) 650 mg Q6H PRN PO PAIN AND OR ELEVATED TEMP; Start 02/24/17 at 21:00 Apixaban (Eliquis) 2.5 mg BID PO Last administered on 03/07/17 09:21; Admin Dose 2.5 MG; Start 02/24/17 at 21:00 Aspirin (Aspirin) 81 mg DAILY PO Last administered on 03/07/17 09:18; Admin Dose 81 MG; Start 02/25/17 at 09:00 Atorvastatin Calcium (Lipitor) 80 mg DAILY@21 PO Last administered on 03/06/17 20:48; Admin Dose 80 MG; Start 02/24/17 at 21:00 Clonazepam (Klonopin) 0.25 mg BID PO Last administered on 03/07/17 09:20; Admin Dose 0.25 MG; Start 02/24/17 at 21:00 Escitalopram Oxalate (Lexapro) 10 mg QHS PO Last administered on 03/06/17 20:48 ; Admin Dose 10 MG; Start 02/24/17 at 21:00 Docusate Sodium (Colace) 100 mg BID PO Last administered on 03/07/17 09:18; Admin Dose 100 MG; Start 02/24/17 at 21:00 Clonidine (Catapres) 0.1 mg Q6H PRN PO SBP > 170; Start 02/24/17 at 21:00 Bisacodyl (Dulcolax Supp) 10 mg DAILY PRN [place] CONSTIPATION Last administered on 03/01/17 06:47; Admin Dose 10 MG; Start 02/25/17 at 04:30 Levetiracetam (Keppra Liquid) 750 mg TID PO Last administered on 03/07/17 13: 28; Admin Dose 750 MG; Start 02/28/17 at 23:00 TERRA RANGEL MD Mar 07, 2017 19:38
[2017-03-07 20:03] VITALS: BP 124/76; RESP 17
[2017-03-07] MEDS: ESCITALOPRAM 10 MG TAB PO SCH (20:48)
[2017-03-07] MEDS: ATORVASTATIN 80 MG TAB PO SCH (20:50)
[2017-03-08 02:00] VITALS: BP 118/63; RESP 18
[2017-03-08] MEDS: PANTOPRAZOLE (EC) 40 MG TAB PO SCH (05:31)
[2017-03-08 07:30] VITALS: BP 113/68; RESP 18
[2017-03-08] MEDS: POLYETHYLENE GLYCOL 17 GM PACKET PO SCH (09:08)
[2017-03-08] MEDS: LACTULOSE 30ML CUP PO SCH ×3 (09:08→20:12)
[2017-03-08] MEDS: LEVETIRACETAM (100 MG/ML) 5ML CUP PO SCH ×3 (09:08→20:08)
[2017-03-08] MEDS: DOCUSATE SODIUM 100 MG CAP PO SCH ×2 (09:09→20:08)
[2017-03-08] MEDS: APIXABAN 5 MG TABLET PO SCH ×2 (09:10→20:08)
[2017-03-08] MEDS: METOPROLOL (XL) 25 MG TAB PO SCH ×2 (09:10→20:11)
[2017-03-08] MEDS: ASPIRIN 81 MG TAB PO SCH (09:10)
[2017-03-08] MEDS: clonAZEPAM 0.5 MG TAB PO SCH ×2 (09:11→20:08)
--- NOTE | 2017-03-08 12:13 | CONS ---
Date/Time of Note Date/Time of Note DATE: 03/08/17 TIME: 12:12 Consult Date/Type/Reason Admit Date/Time Feb 24, 2017 at 18:19 Initial Consult Date 02/25/17 Type of Consultation: [facility] Ordering Provider: MEGAN FLORES DO Objective Vital Signs Date Time Temp Pulse Resp B/P Pulse Ox O2 Delivery O2 Flow Rate FiO2 03/08/17 07:30 97.7 70 18 113/68 96 03/04/17 21:04 Room Air Intake and Output 03/07/17 03/07/17 03/08/17 15:00 23:00 07:00 Intake Total 120 ml 480 ml 200 ml Balance 120 ml 480 ml 200 ml INTERDISCIPLINARY TEAM CONFERENCE BOWEL- Cont BLADDER-Cont SKIN- intact OT- DRESSING-mod/max BATHING-max TOILETING-max PT- BED MOBILITY-max TRANSFERS-max W.C. MOBILITY- min 80 feet SPEECH- COGNITION-sba DYPHAGIA-puree and thin A/P- Interdisciplinary team conference held today. Please see interdisciplinary sheet. Working toward d.c. on 03/16 with post discharge follow up of physical therapy, occupational therapy. Results/Medications Medications Current Medications Pantoprazole (Protonix Tab) 40 mg DAILY@06 PO Last administered on 03/08/17 05 :31; Admin Dose 40 MG; Start 02/25/17 at 06:00 Polyethylene Glycol (Miralax) 17 gm DAILY PO Last administered on 03/08/17 09: 08; Admin Dose 17 GM; Start 02/25/17 at 09:00 Simethicone (Mylicon) 80 mg TID PRN PO DISTENSION/GAS/BLOATING Last administered on 03/01/17 03:01; Admin Dose 80 MG; Start 02/24/17 at 21:00 Zolpidem Tartrate (Ambien) 5 mg HS PRN PO INSOMNIA Last administered on 20:45; Admin Dose 5 MG; Start 02/24/17 at 21:00 Lactulose (Enulose) 20 gm TID PO Last administered on 03/08/17 09:08; Admin Dose 20 GM; Start 02/24/17 at 21:00 Meclizine HCl (Antivert) 25 mg DAILY PRN PO VERTIGO Last administered on 09:35; Admin Dose 25 MG; Start 02/24/17 at 21:00 Metoprolol Succinate (Toprol Xl) 12.5 mg BID PO Last administered on 03/08/17 09:10; Admin Dose 12.5 MG; Start 02/24/17 at 21:00 Ondansetron HCl (Zofran Inj) 4 mg Q6H PRN IV NAUSEA AND/OR VOMITING; Start at 21:00 Acetaminophen (Tylenol Tab) 650 mg Q6H PRN PO PAIN AND OR ELEVATED TEMP; Start 02/24/17 at 21:00 Apixaban (Eliquis) 2.5 mg BID PO Last administered on 03/08/17 09:10; Admin Dose 2.5 MG; Start 02/24/17 at 21:00 Aspirin (Aspirin) 81 mg DAILY PO Last administered on 03/08/17 09:10; Admin Dose 81 MG; Start 02/25/17 at 09:00 Atorvastatin Calcium (Lipitor) 80 mg DAILY@21 PO Last administered on 03/06/17 20:48; Admin Dose 80 MG; Start 02/24/17 at 21:00 Clonazepam (Klonopin) 0.25 mg BID PO Last administered on 03/08/17 09:11; Admin Dose 0.25 MG; Start 02/24/17 at 21:00 Escitalopram Oxalate (Lexapro) 10 mg QHS PO Last administered on 03/07/17 20: 48; Admin Dose 10 MG; Start 02/24/17 at 21:00 Docusate Sodium (Colace) 100 mg BID PO Last administered on 03/08/17 09:09; Admin Dose 100 MG; Start 02/24/17 at 21:00 Clonidine (Catapres) 0.1 mg Q6H PRN PO SBP > 170; Start 02/24/17 at 21:00 Bisacodyl (Dulcolax Supp) 10 mg DAILY PRN [place] CONSTIPATION Last administered on 03/01/17 06:47; Admin Dose 10 MG; Start 02/25/17 at 04:30 Levetiracetam (Keppra Liquid) 750 mg TID PO Last administered on 03/08/17 09: 08; Admin Dose 750 MG; Start 02/28/17 at 23:00 FARIDEH COOK MD Mar 08, 2017 12:13
--- NOTE | 2017-03-08 12:50 | CONS ---
Date/Time of Note Date/Time of Note DATE: 03/08/17 TIME: 12:48 Assessment/Plan Assessment/Plan Chief Complaint/Hosp Course IMPRESSION: 1. Syncope. -NL EF by echo/RV enlargement with NL RV function/negative trop x 3/negative orthostatics/no sig arrythmias by ecg. Area of acute infarct by MRI 2. Hypertension-well controlled and tolerating medications 3. Dyslipidemia. 4. History of cerebrovascular accident. 5. Dementia. 6. Possible urinary tract infection. 7. PAF on xarelto/BB 8. H/O cva-acute on chronic by MRI this admit Recc: -Now transferred to rehab -continue keppra -Continue low dose BB as tolerated and follow BP closely -Continue statin -Continue eliquis/asa as tolerated and follow for any bleeding complications -PT/OT Problems: Consultation Date/Type/Reason Admit Date/Time Feb 24, 2017 at 18:19 Initial Consult Date 02/25/17 Type of Consultation: cardiology Reason for Consultation syncope Referring Provider: MEGAN FLORES DO Exam/Review of Systems Vital Signs Vitals Vital Signs Date Time Temp Pulse Resp B/P Pulse Ox O2 Delivery O2 Flow Rate FiO2 03/08/17 07:30 97.7 70 18 113/68 96 03/04/17 21:04 Room Air Intake and Output 03/07/17 03/07/17 03/08/17 15:00 23:00 07:00 Intake Total 120 ml 480 ml 200 ml Balance 120 ml 480 ml 200 ml Exam Review of Systems: CONSTITUTIONAL: No fevers, chills. PULMONARY: No sob CARDIOVASCULAR: No chest pain/palpitations GASTROINTESTINAL: No nausea/vomiting. GENITOURINARY: No hematuria/dysuria. MUSCULOSKELETAL: No myagias/arthalgias. PSYCHIATRIC: The patient denies depression. NEUROLOGIC: lethargic Constitutional: alert Psych: no complaints Head: normocephalic ENMT: mucosa pink and moist Neck: jvd (8 cm water), supple Respiratory: clear to auscultation Cardiovascular: regular rate and rhythm Gastrointestinal: non-tender, soft Musculoskeletal: muscle weakness (generalized) Extremities: edema (none) Neurological: other (No focal deficits) Medications Medications Current Medications Pantoprazole (Protonix Tab) 40 mg DAILY@06 PO Last administered on 03/08/17t 05 :31; Admin Dose 40 MG; Start 02/25/17 at 06:00 Polyethylene Glycol (Miralax) 17 gm DAILY PO Last administered on 03/08/17 09: 08; Admin Dose 17 GM; Start 02/25/17 at 09:00 Simethicone (Mylicon) 80 mg TID PRN PO DISTENSION/GAS/BLOATING Last administered on 03/01/17 03:01; Admin Dose 80 MG; Start 02/24/17 at 21:00 Zolpidem Tartrate (Ambien) 5 mg HS PRN PO INSOMNIA Last administered on 20:45; Admin Dose 5 MG; Start 02/24/17 at 21:00 Lactulose (Enulose) 20 gm TID PO Last administered on 03/08/17 12:43; Admin Dose 20 GM; Start 02/24/17 at 21:00 Meclizine HCl (Antivert) 25 mg DAILY PRN PO VERTIGO Last administered on 09:35; Admin Dose 25 MG; Start 02/24/17 at 21:00 Metoprolol Succinate (Toprol Xl) 12.5 mg BID PO Last administered on 03/08/17 09:10; Admin Dose 12.5 MG; Start 02/24/17 at 21:00 Ondansetron HCl (Zofran Inj) 4 mg Q6H PRN IV NAUSEA AND/OR VOMITING; Start at 21:00 Acetaminophen (Tylenol Tab) 650 mg Q6H PRN PO PAIN AND OR ELEVATED TEMP; Start 02/24/17 at 21:00 Apixaban (Eliquis) 2.5 mg BID PO Last administered on 03/08/17 09:10; Admin Dose 2.5 MG; Start 02/24/17 at 21:00 Aspirin (Aspirin) 81 mg DAILY PO Last administered on 03/08/17 09:10; Admin Dose 81 MG; Start 02/25/17 at 09:00 Atorvastatin Calcium (Lipitor) 80 mg DAILY@21 PO Last administered on 03/06/17 20:48; Admin Dose 80 MG; Start 02/24/17 at 21:00 Clonazepam (Klonopin) 0.25 mg BID PO Last administered on 03/08/17 09:11; Admin Dose 0.25 MG; Start 02/24/17 at 21:00 Escitalopram Oxalate (Lexapro) 10 mg QHS PO Last administered on 03/07/17 20: 48; Admin Dose 10 MG; Start 02/24/17 at 21:00 Docusate Sodium (Colace) 100 mg BID PO Last administered on 03/08/17 09:09; Admin Dose 100 MG; Start 02/24/17 at 21:00 Clonidine (Catapres) 0.1 mg Q6H PRN PO SBP > 170; Start 02/24/17 at 21:00 Bisacodyl (Dulcolax Supp) 10 mg DAILY PRN [place] CONSTIPATION Last administered on 03/01/17 06:47; Admin Dose 10 MG; Start 02/25/17 at 04:30 Levetiracetam (Keppra Liquid) 750 mg TID PO Last administered on 03/08/17 12: 43; Admin Dose 750 MG; Start 02/28/17 at 23:00 DAVID TESFAYE Mar 08, 2017 12:50
[2017-03-08 14:00] VITALS: BP 91/52; RESP 18
--- NOTE | 2017-03-08 18:16 | CONS ---
Date/Time of Note Date/Time of Note DATE: 03/08/17 TIME: 18:15 Assessment/Plan Assessment/Plan Chief Complaint/Hosp Course Hypercoagulable state Acute cerebrovascular accident. The patient will continue current medical management of Eliquis, aspirin, and Lipitor. ANEMIA- COMPLEX, MULTIFACTORIAL LOOKS COMPENSATED AT PRESENT CONT TO MONITOR Seizure disorder. Continue Keppra. Hypertension. Continue current blood pressure regimen. This is status post urinary tract infection. Coronary artery disease. Continue current medical management. Continue statin therapy. Dementia. Paroxysmal atrial fibrillation, currently in sinus rhythm. Anxiety and depression. Continue Lexapro. Gastrointestinal and deep venous thrombosis prophylaxis. Continue proton pump inhibitor and Eliquis Problems: Consultation Date/Type/Reason Admit Date/Time Feb 24, 2017 at 18:19 Initial Consult Date 02/25/17 Type of Consultation: [facility] Referring Provider: MEGAN FLORES DO 24 HR Interval Summary Free Text/Dictation ALL NOTED + SOME IMPROVEMENT Exam/Review of Systems Vital Signs Vitals Vital Signs Date Time Temp Pulse Resp B/P Pulse Ox O2 Delivery O2 Flow Rate FiO2 03/08/17 14:00 98.5 73 18 91/52 96 03/04/17 21:04 Room Air Intake and Output 03/07/17 03/07/17 03/08/17 15:00 23:00 07:00 Intake Total 120 ml 480 ml 200 ml Balance 120 ml 480 ml 200 ml Exam HEENT: Head is normocephalic. NECK: Supple. HEART: Regular rate. LUNGS: Diminished breath sounds at the base. ABDOMEN: Soft. Nontender to palpation. No guarding. EXTREMITIES: Negative for clubbing, cyanosis, or edema. DERMATOLOGIC: No rashes. MUSCULOSKELETAL: No joint effusion. NEUROLOGIC: The patient has left-sided hemiparesis. No change. Medications Medications Current Medications Pantoprazole (Protonix Tab) 40 mg DAILY@06 PO Last administered on 03/08/17 05 :31; Admin Dose 40 MG; Start 02/25/17 at 06:00 Polyethylene Glycol (Miralax) 17 gm DAILY PO Last administered on 03/08/17 09: 08; Admin Dose 17 GM; Start 02/25/17 at 09:00 Simethicone (Mylicon) 80 mg TID PRN PO DISTENSION/GAS/BLOATING Last administered on 03/01/17 03:01; Admin Dose 80 MG; Start 02/24/17 at 21:00 Zolpidem Tartrate (Ambien) 5 mg HS PRN PO INSOMNIA Last administered on 20:45; Admin Dose 5 MG; Start 02/24/17 at 21:00 Lactulose (Enulose) 20 gm TID PO Last administered on 03/08/17 12:43; Admin Dose 20 GM; Start 02/24/17 at 21:00 Meclizine HCl (Antivert) 25 mg DAILY PRN PO VERTIGO Last administered on 09:35; Admin Dose 25 MG; Start 02/24/17 at 21:00 Metoprolol Succinate (Toprol Xl) 12.5 mg BID PO Last administered on 03/08/17 09:10; Admin Dose 12.5 MG; Start 02/24/17 at 21:00 Ondansetron HCl (Zofran Inj) 4 mg Q6H PRN IV NAUSEA AND/OR VOMITING; Start at 21:00 Acetaminophen (Tylenol Tab) 650 mg Q6H PRN PO PAIN AND OR ELEVATED TEMP; Start 02/24/17 at 21:00 Apixaban (Eliquis) 2.5 mg BID PO Last administered on 03/08/17 09:10; Admin Dose 2.5 MG; Start 02/24/17 at 21:00 Aspirin (Aspirin) 81 mg DAILY PO Last administered on 03/08/17 09:10; Admin Dose 81 MG; Start 02/25/17 at 09:00 Atorvastatin Calcium (Lipitor) 80 mg DAILY@21 PO Last administered on 03/06/17 20:48; Admin Dose 80 MG; Start 02/24/17 at 21:00 Clonazepam (Klonopin) 0.25 mg BID PO Last administered on 03/08/17 09:11; Admin Dose 0.25 MG; Start 02/24/17 at 21:00 Escitalopram Oxalate (Lexapro) 10 mg QHS PO Last administered on 03/07/17 20: 48; Admin Dose 10 MG; Start 02/24/17 at 21:00 Docusate Sodium (Colace) 100 mg BID PO Last administered on 03/08/17 09:09; Admin Dose 100 MG; Start 02/24/17 at 21:00 Clonidine (Catapres) 0.1 mg Q6H PRN PO SBP > 170; Start 02/24/17 at 21:00 Bisacodyl (Dulcolax Supp) 10 mg DAILY PRN [place] CONSTIPATION Last administered on 03/01/17 06:47; Admin Dose 10 MG; Start 02/25/17 at 04:30 Levetiracetam (Keppra Liquid) 750 mg TID PO Last administered on 03/08/17 12: 43; Admin Dose 750 MG; Start 02/28/17 at 23:00 TERRA RANGEL MD Mar 08, 2017 18:16
--- NOTE | 2017-03-08 18:23 | PN ---
DATE: 03/08/2017 SUBJECTIVE DATA: The patient is stable. No events overnight. OBJECTIVE DATA: VITAL SIGNS: Blood pressure 113/68, temperature 97.7, pulse 70, respirations 18. HEENT: Head is normocephalic. NECK: Supple. HEART: Regular rate. RESPIRATORY: Show diminished breath sounds at the base. ABDOMEN: Soft, nontender to palpation. No rebound or guarding. EXTREMITIES: Negative for clubbing, cyanosis. No edema. DERMATOLOGIC: No rashes. MUSCULOSKELETAL: No joint effusion NEUROLOGIC: Unchanged exam. MEDICATIONS: Reviewed. LABORATORY AND DIAGNOSTIC DATA: Have been reviewed. No new labs. ASSESSMENT AND PLAN: 1. Acute cerebrovascular accident, with left hemiparesis. Continue current medical management. 2. Seizure disorder. Continue Keppra. 3. Hypertension. Continue current blood pressure regimen. 4. Anemia. Monitor H and H levels. 5. Dyslipidemia. Continue statin therapy. 6. Paroxysmal atrial fibrillation. Currently in sinus rhythm. Continue medical management. 7. Depression. Continue current treatment plan. 8. History of dementia. 9. Gastrointestinal and deep venous thrombosis prophylaxis. Dictated By: Derrick Bloom DO /anders/kel /Document#: [id number]
[2017-03-08 20:00] VITALS: BP 103/57; RESP 18
[2017-03-08] MEDS: ESCITALOPRAM 10 MG TAB PO SCH (20:09)
[2017-03-08] MEDS: ATORVASTATIN 80 MG TAB PO SCH (20:12)
[2017-03-09 02:00] VITALS: BP 107/52; RESP 18
[2017-03-09] MEDS: ACETAMINOPHEN 325 MG TAB PO PRN (02:59)
[2017-03-09] MEDS: PANTOPRAZOLE (EC) 40 MG TAB PO SCH (06:43)
[2017-03-09 08:14] VITALS: BP 97/56; PULSE 61; RESP 18
[2017-03-09] MEDS: METOPROLOL (XL) 25 MG TAB PO SCH ×2 (09:00→20:34)
[2017-03-09] MEDS: LEVETIRACETAM (100 MG/ML) 5ML CUP PO SCH ×3 (09:19→20:32)
[2017-03-09] MEDS: POLYETHYLENE GLYCOL 17 GM PACKET PO SCH (09:19)
[2017-03-09] MEDS: LACTULOSE 30ML CUP PO SCH ×3 (09:19→20:32)
[2017-03-09] MEDS: DOCUSATE SODIUM 100 MG CAP PO SCH ×2 (09:19→20:32)
[2017-03-09] MEDS: ASPIRIN 81 MG TAB PO SCH (09:20)
[2017-03-09] MEDS: clonAZEPAM 0.5 MG TAB PO SCH ×2 (09:20→20:34)
[2017-03-09] MEDS: APIXABAN 5 MG TABLET PO SCH ×2 (09:20→20:32)
--- NOTE | 2017-03-09 09:30 | CONS ---
Date/Time of Note Date/Time of Note DATE: 03/09/17 TIME: 09:28 Assessment/Plan Assessment/Plan Additional Assessment/Plan 1. Syncope. -NL EF by echo/RV enlargement with NL RV function/negative trop x 3/negative orthostatics/no sig arrythmias by ecg. Area of acute infarct by MRI - more alert, will adjust Rx as needed 2. Hypertension-well controlled and tolerating medications- well controlled now, will monitor 3. Dyslipidemia. 4. History of cerebrovascular accident- in rehab now 5. Dementia - more alert now. 6. Possible urinary tract infection- on anti-Bx. 7. PAF on xarelto/BB - rate controlled. 8. H/O cva-acute on chronic by MRI this admit Consultation Date/Type/Reason Admit Date/Time Feb 24, 2017 at 18:19 Initial Consult Date 02/25/17 Type of Consultation: [facility] Referring Provider: MEGAN FLORES DO 24 HR Interval Summary Free Text/Dictation More alert - VS stable - compliant with rehab. ROS: No fever, no chills, no nausea, no vomiting, no diarrhea/constipation No recent weight changes No chest pain, no PND, no orthopnea No dizziness, blurred vision No thirst, no heat or cold intolerance Exam/Review of Systems Vital Signs Vitals Vital Signs Date Time Temp Pulse Resp B/P Pulse Ox O2 Delivery O2 Flow Rate FiO2 03/09/17 08:14 97.6 61 18 97/56 97 Room Air Intake and Output 03/08/17 03/08/17 03/09/17 15:00 23:00 07:00 Intake Total 660 ml 120 ml Balance 660 ml 120 ml Exam General: WN/WD/NAD, AOx 2-3 HEENT: Unicetric/atraumatic/EOMI (follows commands) NECK: JVD elevated, no thyromegaly Lymph: no lymphadenopathy HEART: Irregular with no S3, II/ systolic murmur at apex LUNGS: Coarse sounds ABD: soft, NT, ND, +BS : Intact Neuro: s/p CVA SKIN: chronic changes EXT: trace edema Medications Medications Current Medications Pantoprazole (Protonix Tab) 40 mg DAILY@06 PO Last administered on 03/09/17t 06 :43; Admin Dose 40 MG; Start 02/25/17 at 06:00 Polyethylene Glycol (Miralax) 17 gm DAILY PO Last administered on 03/09/17 09: 19; Admin Dose 17 GM; Start 02/25/17 at 09:00 Simethicone (Mylicon) 80 mg TID PRN PO DISTENSION/GAS/BLOATING Last administered on 03/01/17 03:01; Admin Dose 80 MG; Start 02/24/17 at 21:00 Zolpidem Tartrate (Ambien) 5 mg HS PRN PO INSOMNIA Last administered on 20:45; Admin Dose 5 MG; Start 02/24/17 at 21:00 Lactulose (Enulose) 20 gm TID PO Last administered on 03/09/17 09:19; Admin Dose 20 GM; Start 02/24/17 at 21:00 Meclizine HCl (Antivert) 25 mg DAILY PRN PO VERTIGO Last administered on 09:35; Admin Dose 25 MG; Start 02/24/17 at 21:00 Metoprolol Succinate (Toprol Xl) 12.5 mg BID PO Last administered on 03/08/17 20:11; Admin Dose 12.5 MG; Start 02/24/17 at 21:00 Ondansetron HCl (Zofran Inj) 4 mg Q6H PRN IV NAUSEA AND/OR VOMITING; Start at 21:00 Acetaminophen (Tylenol Tab) 650 mg Q6H PRN PO PAIN AND OR ELEVATED TEMP Last administered on 03/09/17 02:59; Admin Dose 650 MG; Start 02/24/17 at 21:00 Apixaban (Eliquis) 2.5 mg BID PO Last administered on 03/09/17 09:20; Admin Dose 2.5 MG; Start 02/24/17 at 21:00 Aspirin (Aspirin) 81 mg DAILY PO Last administered on 03/09/17 09:20; Admin Dose 81 MG; Start 02/25/17 at 09:00 Atorvastatin Calcium (Lipitor) 80 mg DAILY@21 PO Last administered on 03/06/17 20:48; Admin Dose 80 MG; Start 02/24/17 at 21:00 Clonazepam (Klonopin) 0.25 mg BID PO Last administered on 03/09/17 09:20; Admin Dose 0.25 MG; Start 02/24/17 at 21:00 Escitalopram Oxalate (Lexapro) 10 mg QHS PO Last administered on 03/08/17 20: 09; Admin Dose 10 MG; Start 02/24/17 at 21:00 Docusate Sodium (Colace) 100 mg BID PO Last administered on 03/09/17 09:19; Admin Dose 100 MG; Start 02/24/17 at 21:00 Clonidine (Catapres) 0.1 mg Q6H PRN PO SBP > 170; Start 02/24/17 at 21:00 Bisacodyl (Dulcolax Supp) 10 mg DAILY PRN [place] CONSTIPATION Last administered on 03/01/17 06:47; Admin Dose 10 MG; Start 02/25/17 at 04:30 Levetiracetam (Keppra Liquid) 750 mg TID PO Last administered on 03/09/17 09: 19; Admin Dose 750 MG; Start 02/28/17 at 23:00 NAGI NARANJO MD Mar 09, 2017 09:30
--- NOTE | 2017-03-09 11:21 | PN ---
DATE: SUBJECTIVE DATA: The patient is stable. No events overnight. No fevers, chills, nausea, vomiting. OBJECTIVE DATA: VITAL SIGNS: Pressure is 97/56, respirations 18, pulse 61, temperature 97.3. HEENT: Head is normocephalic. NECK: Supple. HEART: Regular rate. LUNGS: Diminished breath sounds at the base. ABDOMEN: Soft, nontender to palpation. No rebound or guarding. EXTREMITIES: Negative for clubbing, cyanosis. No edema. DERMATOLOGIC: Clean. No rashes. MUSCULOSKELETAL: No joint effusion. NEUROLOGIC: Unchanged exam. MEDICATIONS: Reviewed. LABORATORY AND DIAGNOSTIC DATA: Laboratory data have been reviewed. No new labs. ASSESSMENT AND PLAN: 1. Acute cerebrovascular accident with left-sided paresis. Continue current medical management. 2. Seizure disorder. Continue Keppra. 3. Hypertension. Continue current blood pressure regimen. 4. Anemia. Monitor hemoglobin and hematocrit levels. 5. Dyslipidemia. Continue statin therapy. 6. Paroxysmal atrial fibrillation. 7. Depression. Continue current treatment plan. 8. History of dementia. 9. Gastrointestinal and deep venous thrombosis prophylaxis. Dictated By: Derrick Bloom DO /[email or web address]/deysi /Document#: [id number]
--- NOTE | 2017-03-09 12:41 | CONS ---
Date/Time of Note Date/Time of Note DATE: 03/09/17 TIME: 12:40 Consult Date/Type/Reason Admit Date/Time Feb 24, 2017 at 18:19 Initial Consult Date 02/25/17 Type of Consultation: [facility] Ordering Provider: MEGAN FLORES DO Subjective Patient comfortable Objective Lungs clear abdomen soft Maximal assist transfer Vital Signs Date Time Temp Pulse Resp B/P Pulse Ox O2 Delivery O2 Flow Rate FiO2 03/09/17 08:14 97.6 61 18 97/56 97 Room Air Intake and Output 03/08/17 03/08/17 03/09/17 15:00 23:00 07:00 Intake Total 660 ml 120 ml Balance 660 ml 120 ml Results/Medications Medications Current Medications Pantoprazole (Protonix Tab) 40 mg DAILY@06 PO Last administered on 03/09/17 06 :43; Admin Dose 40 MG; Start 02/25/17 at 06:00 Polyethylene Glycol (Miralax) 17 gm DAILY PO Last administered on 03/09/17 09: 19; Admin Dose 17 GM; Start 02/25/17 at 09:00 Simethicone (Mylicon) 80 mg TID PRN PO DISTENSION/GAS/BLOATING Last administered on 03/01/17 03:01; Admin Dose 80 MG; Start 02/24/17 at 21:00 Zolpidem Tartrate (Ambien) 5 mg HS PRN PO INSOMNIA Last administered on 20:45; Admin Dose 5 MG; Start 02/24/17 at 21:00 Lactulose (Enulose) 20 gm TID PO Last administered on 03/09/17 09:19; Admin Dose 20 GM; Start 02/24/17 at 21:00 Meclizine HCl (Antivert) 25 mg DAILY PRN PO VERTIGO Last administered on 09:35; Admin Dose 25 MG; Start 02/24/17 at 21:00 Metoprolol Succinate (Toprol Xl) 12.5 mg BID PO Last administered on 03/08/17 20:11; Admin Dose 12.5 MG; Start 02/24/17 at 21:00 Ondansetron HCl (Zofran Inj) 4 mg Q6H PRN IV NAUSEA AND/OR VOMITING; Start at 21:00 Acetaminophen (Tylenol Tab) 650 mg Q6H PRN PO PAIN AND OR ELEVATED TEMP Last administered on 03/09/17 02:59; Admin Dose 650 MG; Start 02/24/17 at 21:00 Apixaban (Eliquis) 2.5 mg BID PO Last administered on 03/09/17 09:20; Admin Dose 2.5 MG; Start 02/24/17 at 21:00 Aspirin (Aspirin) 81 mg DAILY PO Last administered on 03/09/17 09:20; Admin Dose 81 MG; Start 02/25/17 at 09:00 Atorvastatin Calcium (Lipitor) 80 mg DAILY@21 PO Last administered on 03/06/17 20:48; Admin Dose 80 MG; Start 02/24/17 at 21:00 Clonazepam (Klonopin) 0.25 mg BID PO Last administered on 03/09/17 09:20; Admin Dose 0.25 MG; Start 02/24/17 at 21:00 Escitalopram Oxalate (Lexapro) 10 mg QHS PO Last administered on 03/08/17 20: 09; Admin Dose 10 MG; Start 02/24/17 at 21:00 Docusate Sodium (Colace) 100 mg BID PO Last administered on 03/09/17 09:19; Admin Dose 100 MG; Start 02/24/17 at 21:00 Clonidine (Catapres) 0.1 mg Q6H PRN PO SBP > 170; Start 02/24/17 at 21:00 Bisacodyl (Dulcolax Supp) 10 mg DAILY PRN [place] CONSTIPATION Last administered on 03/01/17 06:47; Admin Dose 10 MG; Start 02/25/17 at 04:30 Levetiracetam (Keppra Liquid) 750 mg TID PO Last administered on 03/09/17 09: 19; Admin Dose 750 MG; Start 02/28/17 at 23:00 Assessment/Plan Additional Assessment/Plan Rehab- 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 Continue rehab program. All activity tolerance continues to improve Possible seizure disorder. Hypertension. Urinary tract infection. Coronary artery disease. Dyslipidemia. Paroxysmal atrial fibrillation. Anemia. History of cerebrovascular accident. FARIDEH COOK MD Mar 09, 2017 12:41
[2017-03-09 14:48] VITALS: BP 90/53; RESP 18
[2017-03-09 20:00] VITALS: BP 106/60; RESP 18
[2017-03-09] MEDS: ESCITALOPRAM 10 MG TAB PO SCH (20:33)
[2017-03-09] MEDS: ATORVASTATIN 80 MG TAB PO SCH (20:36)
--- NOTE | 2017-03-09 22:54 | CONS ---
Date/Time of Note Date/Time of Note DATE: 03/09/17 TIME: 22:54 Assessment/Plan Assessment/Plan Chief Complaint/Hosp Course Hypercoagulable state Acute cerebrovascular accident. The patient will continue current medical management of Eliquis, aspirin, and Lipitor. ANEMIA- COMPLEX, MULTIFACTORIAL LOOKS COMPENSATED AT PRESENT CONT TO MONITOR Seizure disorder. Continue Keppra. Hypertension. Continue current blood pressure regimen. This is status post urinary tract infection. Coronary artery disease. Continue current medical management. Continue statin therapy. Dementia. Paroxysmal atrial fibrillation, currently in sinus rhythm. Anxiety and depression. Continue Lexapro. Gastrointestinal and deep venous thrombosis prophylaxis. Continue proton pump inhibitor and Eliquis Problems: Consultation Date/Type/Reason Admit Date/Time Feb 24, 2017 at 18:19 Initial Consult Date 02/25/17 Type of Consultation: [facility] Referring Provider: MEGAN FLORES DO 24 HR Interval Summary Free Text/Dictation all noted NAD Exam/Review of Systems Vital Signs Vitals Vital Signs Date Time Temp Pulse Resp B/P Pulse Ox O2 Delivery O2 Flow Rate FiO2 03/09/17 20:00 97.8 73 18 106/60 97 03/09/17 08:14 Room Air Intake and Output 03/08/17 03/08/17 03/09/17 15:00 23:00 07:00 Intake Total 660 ml 120 ml Balance 660 ml 120 ml Exam HEENT: Head is normocephalic. NECK: Supple. HEART: Regular rate. LUNGS: Diminished breath sounds at the base. ABDOMEN: Soft. Nontender to palpation. No guarding. EXTREMITIES: Negative for clubbing, cyanosis, or edema. DERMATOLOGIC: No rashes. MUSCULOSKELETAL: No joint effusion. NEUROLOGIC: The patient has left-sided hemiparesis. No change. Medications Medications Current Medications Pantoprazole (Protonix Tab) 40 mg DAILY@06 PO Last administered on 03/09/17 06 :43; Admin Dose 40 MG; Start 02/25/17 at 06:00 Polyethylene Glycol (Miralax) 17 gm DAILY PO Last administered on 03/09/17 09: 19; Admin Dose 17 GM; Start 02/25/17 at 09:00 Simethicone (Mylicon) 80 mg TID PRN PO DISTENSION/GAS/BLOATING Last administered on 03/01/17 03:01; Admin Dose 80 MG; Start 02/24/17 at 21:00 Zolpidem Tartrate (Ambien) 5 mg HS PRN PO INSOMNIA Last administered on 20:45; Admin Dose 5 MG; Start 02/24/17 at 21:00 Lactulose (Enulose) 20 gm TID PO Last administered on 03/09/17 20:32; Admin Dose 20 GM; Start 02/24/17 at 21:00 Meclizine HCl (Antivert) 25 mg DAILY PRN PO VERTIGO Last administered on 09:35; Admin Dose 25 MG; Start 02/24/17 at 21:00 Metoprolol Succinate (Toprol Xl) 12.5 mg BID PO Last administered on 03/09/17 20:34; Admin Dose 12.5 MG; Start 02/24/17 at 21:00 Ondansetron HCl (Zofran Inj) 4 mg Q6H PRN IV NAUSEA AND/OR VOMITING; Start at 21:00 Acetaminophen (Tylenol Tab) 650 mg Q6H PRN PO PAIN AND OR ELEVATED TEMP Last administered on 03/09/17 02:59; Admin Dose 650 MG; Start 02/24/17 at 21:00 Apixaban (Eliquis) 2.5 mg BID PO Last administered on 03/09/17 20:32; Admin Dose 2.5 MG; Start 02/24/17 at 21:00 Aspirin (Aspirin) 81 mg DAILY PO Last administered on 03/09/17 09:20; Admin Dose 81 MG; Start 02/25/17 at 09:00 Atorvastatin Calcium (Lipitor) 80 mg DAILY@21 PO Last administered on 03/06/17 20:48; Admin Dose 80 MG; Start 02/24/17 at 21:00 Clonazepam (Klonopin) 0.25 mg BID PO Last administered on 03/09/17 20:34; Admin Dose 0.25 MG; Start 02/24/17 at 21:00 Escitalopram Oxalate (Lexapro) 10 mg QHS PO Last administered on 03/09/17 20: 33; Admin Dose 10 MG; Start 02/24/17 at 21:00 Docusate Sodium (Colace) 100 mg BID PO Last administered on 03/09/17 20:32; Admin Dose 100 MG; Start 02/24/17 at 21:00 Clonidine (Catapres) 0.1 mg Q6H PRN PO SBP > 170; Start 02/24/17 at 21:00 Bisacodyl (Dulcolax Supp) 10 mg DAILY PRN [place] CONSTIPATION Last administered on 03/01/17 06:47; Admin Dose 10 MG; Start 02/25/17 at 04:30 Levetiracetam (Keppra Liquid) 750 mg TID PO Last administered on 03/09/17 20: 32; Admin Dose 750 MG; Start 02/28/17 at 23:00 TERRA RANGEL MD Mar 09, 2017 22:54
[2017-03-10] MEDS: ZOLPIDEM 5 MG TAB PO PRN (01:04)
[2017-03-10 02:00] VITALS: BP 110/61; RESP 18
[2017-03-10] MEDS: PANTOPRAZOLE (EC) 40 MG TAB PO SCH (06:07)
[2017-03-10 06:25] LABS: BASOPHIL # 0.1 10^3/ul (0.0-0.1); BASOPHILS % 0.8 % (0.0-2.0); EOSINOPHILS # 0.1 10^3/ul (0.0-0.5); HEMATOCRIT 34.3 % (37.0-47.0); HEMOGLOBIN 10.9 g/dl (12.0-16.0); LYMPHOCYTES # 2.3 10^3/ul (0.8-2.9); LYMPHOCYTES % 32.7 % (15.0-51.0); MEAN CORPUSCULAR HEMOGLOBIN 28.9 pg (29.0-33.0); MEAN CORPUSCULAR HGB CONC 31.8 g/dl (32.0-37.0); MEAN PLATELET VOLUME 9.8 fl (7.4-10.4); MONOCYTE # 0.5 10^3/ul (0.3-0.9); MONOCYTES % 6.8 % (0.0-11.0); NEUTROPHILS % 56.4 % (39.0-77.0); PLATELET COUNT 301 10^3/UL (140-415); RED BLOOD COUNT 3.77 10^6/ul (4.20-5.40); RED CELL DISTRIBUTION WIDTH 14.6 % (11.5-14.5); WHITE BLOOD COUNT 7.1 10^3/ul (4.8-10.8)
[2017-03-10 06:57] LABS: CALCIUM 9.3 mg/dl (8.4-10.2); CREATININE 0.63 mg/dl (0.44-1.00); MAGNESIUM 2.2 mg/dl (1.7-2.5); PHOSPHORUS 4.3 mg/dl (2.5-4.9); POTASSIUM 4.5 mmol/L (3.5-5.1)
[2017-03-10] MEDS: MECLIZINE 25 MG TAB PO PRN (09:41)
[2017-03-10] MEDS: POLYETHYLENE GLYCOL 17 GM PACKET PO SCH (09:41)
[2017-03-10] MEDS: DOCUSATE SODIUM 100 MG CAP PO SCH ×2 (09:43→21:14)
[2017-03-10] MEDS: ASPIRIN 81 MG TAB PO SCH (09:43)
[2017-03-10] MEDS: APIXABAN 5 MG TABLET PO SCH ×2 (09:43→21:14)
[2017-03-10] MEDS: LEVETIRACETAM (100 MG/ML) 5ML CUP PO SCH ×3 (09:43→21:13)
[2017-03-10] MEDS: METOPROLOL (XL) 25 MG TAB PO SCH ×2 (09:44→21:14)
[2017-03-10] MEDS: clonAZEPAM 0.5 MG TAB PO SCH ×2 (09:44→21:15)
[2017-03-10] MEDS: LACTULOSE 30ML CUP PO SCH ×3 (09:48→21:00)
--- NOTE | 2017-03-10 10:54 | PN ---
DATE: 03/10/2015 SUBJECTIVE DATA: The patient is stable. No events overnight. No fevers, chills, nausea, vomiting. OBJECTIVE DATA: VITAL SIGNS: Blood pressure is 110/61, respirations 18, pulse 70, temperature 97.5. HEENT: Head is normocephalic. NECK: Supple. HEART: Regular rate. LUNGS: Diminished breath sounds at the base. ABDOMEN: Soft, nontender to palpation. No rebound of guarding. EXTREMITIES: Negative for clubbing, cyanosis. No edema. DERMATOLOGIC: No rashes. MUSCULOSKELETAL: No joint effusion. NEUROLOGIC: No change in exam. MEDICATIONS: Reviewed. LABORATORY AND DIAGNOSTIC DATA: Shows a BMP within normal limits. White count 7.1, hemoglobin 10.9, hematocrit 34.3, platelet count of 301. ASSESSMENT AND PLAN: 1. Acute cerebrovascular accident with right-sided hemiparesis. Continue current medical management. 2. Seizure disorder. Continue Keppra. 3. Hypertension. Continue current blood pressure regimen. 4. Anemia. Monitor H and H levels. 5. Dyslipidemia. Continue statin therapy. 6. Paroxysmal atrial fibrillation. 7. Depression. Continue current treatment plan. 8. History of depression. 9. Gastrointestinal and deep venous thrombosis prophylaxis. Dictated By: Derrick Bloom DO /anders/kadeem /Document#: [id number]
--- NOTE | 2017-03-10 12:23 | CONS ---
Date/Time of Note Date/Time of Note DATE: 03/10/17 TIME: 12:23 Consult Date/Type/Reason Admit Date/Time Feb 24, 2017 at 18:19 Initial Consult Date 02/25/17 Type of Consultation: [facility] Ordering Provider: MEGAN FLORES DO Subjective Comfortable Objective pulm-cta max assist transfer Vital Signs Date Time Temp Pulse Resp B/P Pulse Ox O2 Delivery O2 Flow Rate FiO2 03/10/17 02:00 97.5 70 18 110/61 93 03/09/17 08:14 Room Air Intake and Output 03/09/17 03/09/17 03/10/17 15:00 23:00 07:00 Intake Total 850 ml Balance 850 ml Results/Medications Result Diagram: 03/10/17 0557 03/10/17 0557 Results 24 hrs Laboratory Tests Test 03/10/17 05:57 White Blood Count 7.1 Red Blood Count 3.77 L Hemoglobin 10.9 L Hematocrit 34.3 L Mean Corpuscular Volume 91.0 Mean Corpuscular Hemoglobin 28.9 L Mean Corpuscular Hemoglobin Concent 31.8 L Red Cell Distribution Width 14.6 H Platelet Count 301 # Mean Platelet Volume 9.8 Neutrophils % 56.4 Lymphocytes % 32.7 Monocytes % 6.8 Eosinophils % 2.0 Basophils % 0.8 Nucleated Red Blood Cells % 0.0 Neutrophils # (Manual) 4.0 Lymphocytes # 2.3 Monocytes # 0.5 Eosinophils # 0.1 Basophils # 0.1 Nucleated Red Blood Cells # 0.0 Sodium Level 137 Potassium Level 4.5 Chloride Level 105 Carbon Dioxide Level 28 Anion Gap 9 Blood Urea Nitrogen 22 H Creatinine 0.63 Glucose Level 93 Calcium Level 9.3 Phosphorus Level 4.3 Magnesium Level 2.2 Medications Current Medications Pantoprazole (Protonix Tab) 40 mg DAILY@06 PO Last administered on 03/10/17 06 :07; Admin Dose 40 MG; Start 02/25/17 at 06:00 Polyethylene Glycol (Miralax) 17 gm DAILY PO Last administered on 03/10/17 09: 41; Admin Dose 17 GM; Start 02/25/17 at 09:00 Simethicone (Mylicon) 80 mg TID PRN PO DISTENSION/GAS/BLOATING Last administered on 03/01/17 03:01; Admin Dose 80 MG; Start 02/24/17 at 21:00 Zolpidem Tartrate (Ambien) 5 mg HS PRN PO INSOMNIA Last administered on 01:04; Admin Dose 5 MG; Start 02/24/17 at 21:00 Lactulose (Enulose) 20 gm TID PO Last administered on 03/10/17 09:48; Admin Dose 20 GM; Start 02/24/17 at 21:00 Meclizine HCl (Antivert) 25 mg DAILY PRN PO VERTIGO Last administered on 09:41; Admin Dose 25 MG; Start 02/24/17 at 21:00 Metoprolol Succinate (Toprol Xl) 12.5 mg BID PO Last administered on 03/10/17 09:44; Admin Dose 12.5 MG; Start 02/24/17 at 21:00 Ondansetron HCl (Zofran Inj) 4 mg Q6H PRN IV NAUSEA AND/OR VOMITING; Start at 21:00 Acetaminophen (Tylenol Tab) 650 mg Q6H PRN PO PAIN AND OR ELEVATED TEMP Last administered on 03/09/17 02:59; Admin Dose 650 MG; Start 02/24/17 at 21:00 Apixaban (Eliquis) 2.5 mg BID PO Last administered on 03/10/17 09:43; Admin Dose 2.5 MG; Start 02/24/17 at 21:00 Aspirin (Aspirin) 81 mg DAILY PO Last administered on 03/10/17 09:43; Admin Dose 81 MG; Start 02/25/17 at 09:00 Atorvastatin Calcium (Lipitor) 80 mg DAILY@21 PO Last administered on 03/06/17 20:48; Admin Dose 80 MG; Start 02/24/17 at 21:00 Clonazepam (Klonopin) 0.25 mg BID PO Last administered on 03/10/17 09:44; Admin Dose 0.25 MG; Start 02/24/17 at 21:00 Escitalopram Oxalate (Lexapro) 10 mg QHS PO Last administered on 03/09/17 20: 33; Admin Dose 10 MG; Start 02/24/17 at 21:00 Docusate Sodium (Colace) 100 mg BID PO Last administered on 03/10/17 09:43; Admin Dose 100 MG; Start 02/24/17 at 21:00 Clonidine (Catapres) 0.1 mg Q6H PRN PO SBP > 170; Start 02/24/17 at 21:00 Bisacodyl (Dulcolax Supp) 10 mg DAILY PRN [place] CONSTIPATION Last administered on 03/01/17 06:47; Admin Dose 10 MG; Start 02/25/17 at 04:30 Levetiracetam (Keppra Liquid) 750 mg TID PO Last administered on 03/10/17 09: 43; Admin Dose 750 MG; Start 02/28/17 at 23:00 Assessment/Plan Additional Assessment/Plan Rehab- 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 Continue rehab interdisciplinary activities Possible seizure disorder. Hypertension. Urinary tract infection. Coronary artery disease. Dyslipidemia. Paroxysmal atrial fibrillation. Anemia. History of cerebrovascular accident. FARIDEH COOK MD Mar 10, 2017 12:23
[2017-03-10 14:00] VITALS: BP 100/72; RESP 18
--- NOTE | 2017-03-10 14:51 | CONS ---
Date/Time of Note Date/Time of Note DATE: 03/10/17 TIME: 14:45 Assessment/Plan Assessment/Plan Chief Complaint/Hosp Course IMPRESSION: 1. Syncope. -NL EF by echo/RV enlargement with NL RV function/negative trop x 3/negative orthostatics/no sig arrythmias by ecg. Area of acute infarct by MRI 2. Hypertension-well controlled and tolerating medications 3. Dyslipidemia. 4. History of cerebrovascular accident. 5. Dementia. 6. Possible urinary tract infection. 7. PAF on xarelto/BB 8. H/O cva-acute on chronic by MRI this admit 9. Neck pain Recc: -Now transferred to rehab -continue keppra -Continue low dose BB as tolerated and follow BP closely -Continue statin -Continue eliquis/asa as tolerated and follow for any bleeding complications -PT/OT Problems: Consultation Date/Type/Reason Admit Date/Time Feb 24, 2017 at 18:19 Initial Consult Date 02/25/17 Type of Consultation: cardiology Reason for Consultation syncope Referring Provider: MEGAN FLORES DO Exam/Review of Systems Vital Signs Vitals Vital Signs Date Time Temp Pulse Resp B/P Pulse Ox O2 Delivery O2 Flow Rate FiO2 03/10/17 14:00 97.7 78 18 100/72 97 03/09/17 08:14 Room Air Intake and Output 03/09/17 03/09/17 03/10/17 15:00 23:00 07:00 Intake Total 850 ml Balance 850 ml Exam Review of Systems: CONSTITUTIONAL: No fevers, chills. PULMONARY: No sob CARDIOVASCULAR: No chest pain/palpitations GASTROINTESTINAL: No nausea/vomiting. GENITOURINARY: No hematuria/dysuria. MUSCULOSKELETAL: No myagias/arthalgias. PSYCHIATRIC: The patient denies depression. NEUROLOGIC: No weakness Constitutional: alert Psych: no complaints Head: normocephalic ENMT: mucosa pink and moist Neck: jvd (9 cm water) Respiratory: diminished breath sounds (at bases/B) Cardiovascular: regular rate and rhythm Gastrointestinal: non-tender, soft Musculoskeletal: muscle tone (bormal) Extremities: edema (none) Neurological: other (NO focal deficits) Results Result Diagram: 03/10/17 0557 03/10/17 0557 Results 24 hrs Laboratory Tests Test 03/10/17 05:57 White Blood Count 7.1 Red Blood Count 3.77 L Hemoglobin 10.9 L Hematocrit 34.3 L Mean Corpuscular Volume 91.0 Mean Corpuscular Hemoglobin 28.9 L Mean Corpuscular Hemoglobin Concent 31.8 L Red Cell Distribution Width 14.6 H Platelet Count 301 # Mean Platelet Volume 9.8 Neutrophils % 56.4 Lymphocytes % 32.7 Monocytes % 6.8 Eosinophils % 2.0 Basophils % 0.8 Nucleated Red Blood Cells % 0.0 Neutrophils # (Manual) 4.0 Lymphocytes # 2.3 Monocytes # 0.5 Eosinophils # 0.1 Basophils # 0.1 Nucleated Red Blood Cells # 0.0 Sodium Level 137 Potassium Level 4.5 Chloride Level 105 Carbon Dioxide Level 28 Anion Gap 9 Blood Urea Nitrogen 22 H Creatinine 0.63 Glucose Level 93 Calcium Level 9.3 Phosphorus Level 4.3 Magnesium Level 2.2 Medications Medications Current Medications Pantoprazole (Protonix Tab) 40 mg DAILY@06 PO Last administered on 03/10/17 06 :07; Admin Dose 40 MG; Start 02/25/17 at 06:00 Polyethylene Glycol (Miralax) 17 gm DAILY PO Last administered on 03/10/17 09: 41; Admin Dose 17 GM; Start 02/25/17 at 09:00 Simethicone (Mylicon) 80 mg TID PRN PO DISTENSION/GAS/BLOATING Last administered on 03/01/17 03:01; Admin Dose 80 MG; Start 02/24/17 at 21:00 Zolpidem Tartrate (Ambien) 5 mg HS PRN PO INSOMNIA Last administered on 01:04; Admin Dose 5 MG; Start 02/24/17 at 21:00 Lactulose (Enulose) 20 gm TID PO Last administered on 03/10/17 09:48; Admin Dose 20 GM; Start 02/24/17 at 21:00 Meclizine HCl (Antivert) 25 mg DAILY PRN PO VERTIGO Last administered on 09:41; Admin Dose 25 MG; Start 02/24/17 at 21:00 Metoprolol Succinate (Toprol Xl) 12.5 mg BID PO Last administered on 03/10/17 09:44; Admin Dose 12.5 MG; Start 02/24/17 at 21:00 Ondansetron HCl (Zofran Inj) 4 mg Q6H PRN IV NAUSEA AND/OR VOMITING; Start at 21:00 Acetaminophen (Tylenol Tab) 650 mg Q6H PRN PO PAIN AND OR ELEVATED TEMP Last administered on 03/09/17 02:59; Admin Dose 650 MG; Start 02/24/17 at 21:00 Apixaban (Eliquis) 2.5 mg BID PO Last administered on 03/10/17 09:43; Admin Dose 2.5 MG; Start 02/24/17 at 21:00 Aspirin (Aspirin) 81 mg DAILY PO Last administered on 03/10/17 09:43; Admin Dose 81 MG; Start 02/25/17 at 09:00 Atorvastatin Calcium (Lipitor) 80 mg DAILY@21 PO Last administered on 03/06/17 20:48; Admin Dose 80 MG; Start 02/24/17 at 21:00 Clonazepam (Klonopin) 0.25 mg BID PO Last administered on 03/10/17 09:44; Admin Dose 0.25 MG; Start 02/24/17 at 21:00 Escitalopram Oxalate (Lexapro) 10 mg QHS PO Last administered on 03/09/17 20: 33; Admin Dose 10 MG; Start 02/24/17 at 21:00 Docusate Sodium (Colace) 100 mg BID PO Last administered on 03/10/17 09:43; Admin Dose 100 MG; Start 02/24/17 at 21:00 Clonidine (Catapres) 0.1 mg Q6H PRN PO SBP > 170; Start 02/24/17 at 21:00 Bisacodyl (Dulcolax Supp) 10 mg DAILY PRN [place] CONSTIPATION Last administered on 03/01/17 06:47; Admin Dose 10 MG; Start 02/25/17 at 04:30 Levetiracetam (Keppra Liquid) 750 mg TID PO Last administered on 03/10/17 09: 43; Admin Dose 750 MG; Start 02/28/17 at 23:00 DAVID TESFAYE Mar 10, 2017 14:50
--- NOTE | 2017-03-10 17:00 | CONS ---
Date/Time of Note Date/Time of Note DATE: 03/10/17 TIME: 16:59 Assessment/Plan Assessment/Plan Chief Complaint/Hosp Course Hypercoagulable state Acute cerebrovascular accident. The patient will continue current medical management of Eliquis, aspirin, and Lipitor. ANEMIA- COMPLEX, MULTIFACTORIAL LOOKS COMPENSATED AT PRESENT CONT TO MONITOR Seizure disorder. Continue Keppra. Hypertension. Continue current blood pressure regimen. This is status post urinary tract infection. Coronary artery disease. Continue current medical management. Continue statin therapy. Dementia. Paroxysmal atrial fibrillation, currently in sinus rhythm. Anxiety and depression. Continue Lexapro. Gastrointestinal and deep venous thrombosis prophylaxis. Continue proton pump inhibitor and Eliquis Problems: Consultation Date/Type/Reason Admit Date/Time Feb 24, 2017 at 18:19 Initial Consult Date 02/25/17 Type of Consultation: [facility] Referring Provider: MEGAN FLORES DO 24 HR Interval Summary Free Text/Dictation all noted felling better Exam/Review of Systems Vital Signs Vitals Vital Signs Date Time Temp Pulse Resp B/P Pulse Ox O2 Delivery O2 Flow Rate FiO2 03/10/17 14:00 97.7 78 18 100/72 97 03/09/17 08:14 Room Air Intake and Output 03/09/17 03/09/17 03/10/17 15:00 23:00 07:00 Intake Total 850 ml Balance 850 ml Exam HEENT: Head is normocephalic. NECK: Supple. HEART: Regular rate. LUNGS: Diminished breath sounds at the base. ABDOMEN: Soft. Nontender to palpation. No guarding. EXTREMITIES: Negative for clubbing, cyanosis, or edema. DERMATOLOGIC: No rashes. MUSCULOSKELETAL: No joint effusion. NEUROLOGIC: The patient has left-sided hemiparesis. No change. Results Result Diagram: 03/10/17 0557 03/10/17 0557 Results 24 hrs Laboratory Tests Test 03/10/17 05:57 White Blood Count 7.1 Red Blood Count 3.77 L Hemoglobin 10.9 L Hematocrit 34.3 L Mean Corpuscular Volume 91.0 Mean Corpuscular Hemoglobin 28.9 L Mean Corpuscular Hemoglobin Concent 31.8 L Red Cell Distribution Width 14.6 H Platelet Count 301 # Mean Platelet Volume 9.8 Neutrophils % 56.4 Lymphocytes % 32.7 Monocytes % 6.8 Eosinophils % 2.0 Basophils % 0.8 Nucleated Red Blood Cells % 0.0 Neutrophils # (Manual) 4.0 Lymphocytes # 2.3 Monocytes # 0.5 Eosinophils # 0.1 Basophils # 0.1 Nucleated Red Blood Cells # 0.0 Sodium Level 137 Potassium Level 4.5 Chloride Level 105 Carbon Dioxide Level 28 Anion Gap 9 Blood Urea Nitrogen 22 H Creatinine 0.63 Glucose Level 93 Calcium Level 9.3 Phosphorus Level 4.3 Magnesium Level 2.2 Medications Medications Current Medications Pantoprazole (Protonix Tab) 40 mg DAILY@06 PO Last administered on 03/10/17 06 :07; Admin Dose 40 MG; Start 02/25/17 at 06:00 Polyethylene Glycol (Miralax) 17 gm DAILY PO Last administered on 03/10/17 09: 41; Admin Dose 17 GM; Start 02/25/17 at 09:00 Simethicone (Mylicon) 80 mg TID PRN PO DISTENSION/GAS/BLOATING Last administered on 03/01/17 03:01; Admin Dose 80 MG; Start 02/24/17 at 21:00 Zolpidem Tartrate (Ambien) 5 mg HS PRN PO INSOMNIA Last administered on 01:04; Admin Dose 5 MG; Start 02/24/17 at 21:00 Lactulose (Enulose) 20 gm TID PO Last administered on 03/10/17 15:21; Admin Dose 20 GM; Start 02/24/17 at 21:00 Meclizine HCl (Antivert) 25 mg DAILY PRN PO VERTIGO Last administered on 09:41; Admin Dose 25 MG; Start 02/24/17 at 21:00 Metoprolol Succinate (Toprol Xl) 12.5 mg BID PO Last administered on 03/10/17 09:44; Admin Dose 12.5 MG; Start 02/24/17 at 21:00 Ondansetron HCl (Zofran Inj) 4 mg Q6H PRN IV NAUSEA AND/OR VOMITING; Start at 21:00 Acetaminophen (Tylenol Tab) 650 mg Q6H PRN PO PAIN AND OR ELEVATED TEMP Last administered on 03/09/17 02:59; Admin Dose 650 MG; Start 02/24/17 at 21:00 Apixaban (Eliquis) 2.5 mg BID PO Last administered on 03/10/17 09:43; Admin Dose 2.5 MG; Start 02/24/17 at 21:00 Aspirin (Aspirin) 81 mg DAILY PO Last administered on 03/10/17 09:43; Admin Dose 81 MG; Start 02/25/17 at 09:00 Atorvastatin Calcium (Lipitor) 80 mg DAILY@21 PO Last administered on 03/06/17 20:48; Admin Dose 80 MG; Start 02/24/17 at 21:00 Clonazepam (Klonopin) 0.25 mg BID PO Last administered on 03/10/17 09:44; Admin Dose 0.25 MG; Start 02/24/17 at 21:00 Escitalopram Oxalate (Lexapro) 10 mg QHS PO Last administered on 03/09/17 20: 33; Admin Dose 10 MG; Start 02/24/17 at 21:00 Docusate Sodium (Colace) 100 mg BID PO Last administered on 03/10/17 09:43; Admin Dose 100 MG; Start 02/24/17 at 21:00 Clonidine (Catapres) 0.1 mg Q6H PRN PO SBP > 170; Start 02/24/17 at 21:00 Bisacodyl (Dulcolax Supp) 10 mg DAILY PRN [place] CONSTIPATION Last administered on 03/01/17 06:47; Admin Dose 10 MG; Start 02/25/17 at 04:30 Levetiracetam (Keppra Liquid) 750 mg TID PO Last administered on 03/10/17 15: 21; Admin Dose 750 MG; Start 02/28/17 at 23:00 TERRA RANGEL MD Mar 10, 2017 17:00
[2017-03-10 19:00] VITALS: BP 101/51; PULSE 78
[2017-03-10 20:00] VITALS: BP 109/76; RESP 18
[2017-03-10] MEDS: ATORVASTATIN 80 MG TAB PO SCH (21:00)
[2017-03-10] MEDS: ESCITALOPRAM 10 MG TAB PO SCH (21:13)
[2017-03-11 02:00] VITALS: BP 112/65; RESP 18
--- NOTE | 2017-03-11 02:37 | CONS ---
DATE OF ADMISSION: 02/24/2017 DATE OF CONSULTATION: 03/10/2017 TYPE OF CONSULTATION: Psychological. REFERRING PHYSICIAN: Nathan Ramesh MD. CONSULTING PSYCHOLOGIST: Matias Strong, PHD. REASON FOR CONSULTATION: This consultation was requested by Dr. Ramesh in order to evaluate the cognitive and emotional functioning of this patient related to her present medical condition. HISTORY OF PRESENT ILLNESS: The patient is an 82-year-old female. The patient does have a history of previous cerebral vascular accident with right-sided hemiparesis. The patient was admitted, and it was found that she did have a new infarct in the right MCA distribution. The patient was medically treated and cleared and then sent to the acute rehabilitation unit for acute multidisciplinary rehabilitation. The patient has numerous other problems regarding depression. The patient has numerous losses in her life. Her 5 years ago, but the most traumatic issue for the patient is that her 56-year-old son a year ago from cancer. The patient was very depressed about this. The patient has been depressed and is on antidepressant medications, as well as anti-anxiety medication. The patient is motivated to get better and does want to return to her previous level of functioning and does want to go back to her previous living situation. FAMILY/SOCIAL HISTORY: The patient reports at present she lives alone in a low-income apartment in [place]. The patient says that her other son lives nearby and is able to help her. The patient does want to return to her previous living situation. MEDICATION: The patient is currently on: 1. Lexapro 10 mg q.h.s. 2. Klonopin 0.25 mg b.i.d. SUBSTANCE USE: The patient reports that she does not smoke. The patient reports that she does not use alcohol or other drugs. MENTAL STATUS EXAMINATION: Appearance: The patient was seen in bed. She appears to be small and thin. The patient is right handed. Behavior: The patient was cooperative during the consultation. The patient did attempt to answer all questions presented to her by the interviewer. Mood and affect: The patient's mood appears to be depressed. The patient reports that she is depressed and nervous. Affect does appear to be anxious. Perception: The patient reports no hallucinations or delusions. The patient was alert to person, place, situation, and time. Memory and cognition: The patient's memory and cognition does reveal some level of impairment likely related to her previous stroke and this stroke. Overall, the patient was able to say the name of the hospital as [facility] she did come [facility] She was able to say the month and the year. She was able to say who the professor of literacy is. The patient could not say who the governor of the state is or who the mayor of the city is. The patient was not able to do serial 7 subtractions from 100. The patient could not spell "world" backwards. Overall, the patient appears to have some vascular dementia that relates probably back to her original stroke and probably was increased by her recent one. Intelligence: Intelligence appears to fall in the average range when she was functioning adequately. Insight: Fair. Judgment: Fair. Thought content: The patient is concerned about her present medical condition. The patient is very verbal about her depression and her issues regarding the loss of her son. The patient is frustrated about her present medical condition and does say that she is presently in pain. The patient states that she was a 9 as far as pain goes on the pain scale. Discussion: The patient can likely benefit from some cognitive/behavioral psychotherapy while she is on the unit. The psychotherapy would focus on her underlying level of depression related to her medical condition but also related to the grief she has over the of her son. DIAGNOSTIC IMPRESSION: 1. F 33.1. Major depressive disorder, recurrent, moderate. 2. F 01.50. Vascular dementia without behavioral disturbance. Thank you very much, Dr. Haris Ramesh, for referring this individual. Please do not hesitate to call if you have additional questions. Dictated By: Matias Strong, PHD /fnt/grs /Document#: [id number]
[2017-03-11] MEDS: PANTOPRAZOLE (EC) 40 MG TAB PO SCH (06:37)
[2017-03-11 07:30] VITALS: BP 116/70; RESP 18
[2017-03-11] MEDS: POLYETHYLENE GLYCOL 17 GM PACKET PO SCH (08:33)
[2017-03-11] MEDS: LACTULOSE 30ML CUP PO SCH ×3 (08:33→21:12)
[2017-03-11] MEDS: LEVETIRACETAM (100 MG/ML) 5ML CUP PO SCH ×3 (08:35→21:13)
[2017-03-11] MEDS: DOCUSATE SODIUM 100 MG CAP PO SCH ×2 (08:35→21:10)
[2017-03-11] MEDS: clonAZEPAM 0.5 MG TAB PO SCH ×2 (08:35→21:12)
[2017-03-11] MEDS: ASPIRIN 81 MG TAB PO SCH (08:36)
[2017-03-11] MEDS: APIXABAN 5 MG TABLET PO SCH ×2 (08:36→21:12)
[2017-03-11] MEDS: METOPROLOL (XL) 25 MG TAB PO SCH ×2 (08:36→21:12)
--- NOTE | 2017-03-11 11:17 | PN ---
DATE: 03/11/2017 SUBJECTIVE DATA: Patient is stable. No events overnight. No fevers, chills, nausea, vomiting. OBJECTIVE DATA: VITAL SIGNS: Blood pressure 116/70, respirations 18, pulse 67, temperature 98.4. HEENT: Head is normocephalic. NECK: Supple. HEART: Regular rate. LUNGS: Show diminished breath sounds at the base. ABDOMEN: Soft, nontender to palpation. No rebound or guarding. EXTREMITIES: Negative for clubbing, cyanosis. No edema. DERMATOLOGIC: No rashes. MUSCULOSKELETAL: No joint effusion. NEUROLOGIC: Unchanged exam. MEDICATIONS: Reviewed. LABORATORY AND DIAGNOSTIC DATA: Reviewed. ASSESSMENT AND PLAN: 1. Acute cerebrovascular accident with right-sided hemiparesis. Patient is currently stable. Continue medical management. 2. Seizure disorder. Continue Keppra. 3. Hypertension. Continue current blood pressure regimen. 4. Anemia. Monitor H and H levels. 5. Dyslipidemia. Continue statin therapy. 6. Paroxysmal atrial fibrillation, stable. Patient is in sinus rhythm. Continue current treatment plan. 7. Depression. Continue current medical management. Continue current treatment plan. 8. Gastrointestinal and deep venous thrombosis prophylaxes. Dictated By: Derrick Bloom DO /anders/zena /Document#: [id number]
--- NOTE | 2017-03-11 13:41 | CONS ---
Date/Time of Note Date/Time of Note DATE: 03/11/17 TIME: 13:41 Consult Date/Type/Reason Admit Date/Time Feb 24, 2017 at 18:19 Initial Consult Date 02/25/17 Type of Consultation: [facility] Ordering Provider: MEGAN FLORES DO Subjective Comfortable Objective pulm-cta max assist Vital Signs Date Time Temp Pulse Resp B/P Pulse Ox O2 Delivery O2 Flow Rate FiO2 03/11/17 07:30 98.4 67 18 116/70 97 03/09/17 08:14 Room Air Intake and Output 03/10/17 03/10/17 03/11/17 15:00 23:00 07:00 Intake Total 980 ml 650 ml Output Total 1 ml Balance 979 ml 650 ml Results/Medications Result Diagram: 03/10/17 0557 03/10/17 0557 Medications Current Medications Pantoprazole (Protonix Tab) 40 mg DAILY@06 PO Last administered on 03/11/17 06 :37; Admin Dose 40 MG; Start 02/25/17 at 06:00 Polyethylene Glycol (Miralax) 17 gm DAILY PO Last administered on 03/11/17 08: 33; Admin Dose 17 GM; Start 02/25/17 at 09:00 Simethicone (Mylicon) 80 mg TID PRN PO DISTENSION/GAS/BLOATING Last administered on 03/01/17 03:01; Admin Dose 80 MG; Start 02/24/17 at 21:00 Zolpidem Tartrate (Ambien) 5 mg HS PRN PO INSOMNIA Last administered on 01:04; Admin Dose 5 MG; Start 02/24/17 at 21:00 Lactulose (Enulose) 20 gm TID PO Last administered on 03/11/17 08:33; Admin Dose 20 GM; Start 02/24/17 at 21:00 Meclizine HCl (Antivert) 25 mg DAILY PRN PO VERTIGO Last administered on 09:41; Admin Dose 25 MG; Start 02/24/17 at 21:00 Metoprolol Succinate (Toprol Xl) 12.5 mg BID PO Last administered on 03/11/17 08:36; Admin Dose 12.5 MG; Start 02/24/17 at 21:00 Ondansetron HCl (Zofran Inj) 4 mg Q6H PRN IV NAUSEA AND/OR VOMITING; Start at 21:00 Acetaminophen (Tylenol Tab) 650 mg Q6H PRN PO PAIN AND OR ELEVATED TEMP Last administered on 03/09/17 02:59; Admin Dose 650 MG; Start 02/24/17 at 21:00 Apixaban (Eliquis) 2.5 mg BID PO Last administered on 03/11/17 08:36; Admin Dose 2.5 MG; Start 02/24/17 at 21:00 Aspirin (Aspirin) 81 mg DAILY PO Last administered on 03/11/17 08:36; Admin Dose 81 MG; Start 02/25/17 at 09:00 Atorvastatin Calcium (Lipitor) 80 mg DAILY@21 PO Last administered on 03/06/17 20:48; Admin Dose 80 MG; Start 02/24/17 at 21:00 Clonazepam (Klonopin) 0.25 mg BID PO Last administered on 03/11/17 08:35; Admin Dose 0.25 MG; Start 02/24/17 at 21:00 Escitalopram Oxalate (Lexapro) 10 mg QHS PO Last administered on 03/10/17 21: 13; Admin Dose 10 MG; Start 02/24/17 at 21:00 Docusate Sodium (Colace) 100 mg BID PO Last administered on 03/11/17 08:35; Admin Dose 100 MG; Start 02/24/17 at 21:00 Clonidine (Catapres) 0.1 mg Q6H PRN PO SBP > 170; Start 02/24/17 at 21:00 Bisacodyl (Dulcolax Supp) 10 mg DAILY PRN [place] CONSTIPATION Last administered on 03/01/17 06:47; Admin Dose 10 MG; Start 02/25/17 at 04:30 Levetiracetam (Keppra Liquid) 750 mg TID PO Last administered on 03/11/17 08: 35; Admin Dose 750 MG; Start 02/28/17 at 23:00 Assessment/Plan Additional Assessment/Plan Rehab- Right MCA infarct CVA with left-sided weakness. Continue rehab program Possible seizure disorder. Hypertension. Urinary tract infection. Coronary artery disease. Dyslipidemia. Paroxysmal atrial fibrillation. Anemia. History of cerebrovascular accident. FARIDEH COOK MD Mar 11, 2017 13:41
[2017-03-11 14:00] VITALS: BP 117/57; RESP 18
[2017-03-11 20:00] VITALS: BP 111/54; RESP 18
--- NOTE | 2017-03-11 20:56 | CONS ---
Date/Time of Note Date/Time of Note DATE: 03/11/17 TIME: 20:54 Assessment/Plan Assessment/Plan Chief Complaint/Hosp Course IMPRESSION: 1. Syncope. -NL EF by echo/RV enlargement with NL RV function/negative trop x 3/negative orthostatics/no sig arrythmias by ecg. Area of acute infarct by MRI 2. Hypertension-well controlled and tolerating medications 3. Dyslipidemia. 4. History of cerebrovascular accident. 5. Dementia. 6. Possible urinary tract infection. 7. PAF on Eliquis/BB 8. H/O cva-acute on chronic by MRI this admit 9. Neck pain Recc: -Now transferred to rehab -continue keppra -Continue low dose BB as tolerated and follow BP closely -Continue statin -Continue eliquis/asa as tolerated and follow for any bleeding complications -PT/OT Problems: Consultation Date/Type/Reason Admit Date/Time Feb 24, 2017 at 18:19 Initial Consult Date 02/25/17 Type of Consultation: cardiology Reason for Consultation syncope Referring Provider: MEGAN FLORES DO Exam/Review of Systems Vital Signs Vitals Vital Signs Date Time Temp Pulse Resp B/P Pulse Ox O2 Delivery O2 Flow Rate FiO2 03/11/17 20:00 98.3 65 18 111/54 97 03/09/17 08:14 Room Air Intake and Output 03/10/17 03/10/17 03/11/17 15:00 23:00 07:00 Intake Total 980 ml 650 ml Output Total 1 ml Balance 979 ml 650 ml Exam Review of Systems: CONSTITUTIONAL: No fevers, chills. PULMONARY: No sob CARDIOVASCULAR: No chest pain/palpitations GASTROINTESTINAL: No nausea/vomiting. GENITOURINARY: No hematuria/dysuria. MUSCULOSKELETAL: No myagias/arthalgias. PSYCHIATRIC: The patient denies depression. NEUROLOGIC: generalized weakness Constitutional: alert Psych: no complaints Head: normocephalic ENMT: mucosa pink and moist Neck: jvd (8-9 cm water), supple Respiratory: diminished breath sounds (at bases/B) Cardiovascular: regular rate and rhythm Gastrointestinal: non-tender, soft Musculoskeletal: muscle tone (normal) Extremities: edema (none) Neurological: other (mild generalized weakness) Results Result Diagram: 03/10/17 0557 03/10/17 0557 Medications Medications Current Medications Pantoprazole (Protonix Tab) 40 mg DAILY@06 PO Last administered on 03/11/17 06 :37; Admin Dose 40 MG; Start 02/25/17 at 06:00 Polyethylene Glycol (Miralax) 17 gm DAILY PO Last administered on 03/11/17 08: 33; Admin Dose 17 GM; Start 02/25/17 at 09:00 Simethicone (Mylicon) 80 mg TID PRN PO DISTENSION/GAS/BLOATING Last administered on 03/01/17 03:01; Admin Dose 80 MG; Start 02/24/17 at 21:00 Zolpidem Tartrate (Ambien) 5 mg HS PRN PO INSOMNIA Last administered on 01:04; Admin Dose 5 MG; Start 02/24/17 at 21:00 Lactulose (Enulose) 20 gm TID PO Last administered on 03/11/17 13:44; Admin Dose 20 GM; Start 02/24/17 at 21:00 Meclizine HCl (Antivert) 25 mg DAILY PRN PO VERTIGO Last administered on 09:41; Admin Dose 25 MG; Start 02/24/17 at 21:00 Metoprolol Succinate (Toprol Xl) 12.5 mg BID PO Last administered on 03/11/17 08:36; Admin Dose 12.5 MG; Start 02/24/17 at 21:00 Ondansetron HCl (Zofran Inj) 4 mg Q6H PRN IV NAUSEA AND/OR VOMITING; Start at 21:00 Acetaminophen (Tylenol Tab) 650 mg Q6H PRN PO PAIN AND OR ELEVATED TEMP Last administered on 03/09/17 02:59; Admin Dose 650 MG; Start 02/24/17 at 21:00 Apixaban (Eliquis) 2.5 mg BID PO Last administered on 03/11/17 08:36; Admin Dose 2.5 MG; Start 02/24/17 at 21:00 Aspirin (Aspirin) 81 mg DAILY PO Last administered on 03/11/17 08:36; Admin Dose 81 MG; Start 02/25/17 at 09:00 Atorvastatin Calcium (Lipitor) 80 mg DAILY@21 PO Last administered on 03/06/17 20:48; Admin Dose 80 MG; Start 02/24/17 at 21:00 Clonazepam (Klonopin) 0.25 mg BID PO Last administered on 03/11/17 08:35; Admin Dose 0.25 MG; Start 02/24/17 at 21:00 Escitalopram Oxalate (Lexapro) 10 mg QHS PO Last administered on 03/10/17 21: 13; Admin Dose 10 MG; Start 02/24/17 at 21:00 Docusate Sodium (Colace) 100 mg BID PO Last administered on 03/11/17 08:35; Admin Dose 100 MG; Start 02/24/17 at 21:00 Clonidine (Catapres) 0.1 mg Q6H PRN PO SBP > 170; Start 02/24/17 at 21:00 Bisacodyl (Dulcolax Supp) 10 mg DAILY PRN [place] CONSTIPATION Last administered on 03/01/17 06:47; Admin Dose 10 MG; Start 02/25/17 at 04:30 Levetiracetam (Keppra Liquid) 750 mg TID PO Last administered on 03/11/17 13: 44; Admin Dose 750 MG; Start 02/28/17 at 23:00 DAVID TESFAYE Mar 11, 2017 20:56
[2017-03-11] MEDS: ATORVASTATIN 80 MG TAB PO SCH (21:00)
[2017-03-11] MEDS: ESCITALOPRAM 10 MG TAB PO SCH (21:10)
--- NOTE | 2017-03-11 22:22 | CONS ---
Date/Time of Note Date/Time of Note DATE: 03/11/17 TIME: 22:21 Assessment/Plan Assessment/Plan Chief Complaint/Hosp Course Hypercoagulable state Acute cerebrovascular accident. The patient will continue current medical management of Eliquis, aspirin, and Lipitor. ANEMIA- COMPLEX, MULTIFACTORIAL LOOKS COMPENSATED AT PRESENT CONT TO MONITOR Seizure disorder. Continue Keppra. Hypertension. Continue current blood pressure regimen. This is status post urinary tract infection. Coronary artery disease. Continue current medical management. Continue statin therapy. Dementia. Paroxysmal atrial fibrillation, currently in sinus rhythm. Anxiety and depression. Continue Lexapro. Gastrointestinal and deep venous thrombosis prophylaxis. Continue proton pump inhibitor and Eliquis Problems: Consultation Date/Type/Reason Admit Date/Time Feb 24, 2017 at 18:19 Initial Consult Date 02/25/17 Type of Consultation: [facility] Referring Provider: MEGAN FLORES DO 24 HR Interval Summary Free Text/Dictation ALL NOTED NO NEW EVENS WEAK, BUT SLOWLY IMPROVING Exam/Review of Systems Vital Signs Vitals Vital Signs Date Time Temp Pulse Resp B/P Pulse Ox O2 Delivery O2 Flow Rate FiO2 03/11/17 20:00 98.3 65 18 111/54 97 03/09/17 08:14 Room Air Intake and Output 03/10/17 03/10/17 03/11/17 15:00 23:00 07:00 Intake Total 980 ml 650 ml Output Total 1 ml Balance 979 ml 650 ml Exam HEENT: Head is normocephalic. NECK: Supple. HEART: Regular rate. LUNGS: Diminished breath sounds at the base. ABDOMEN: Soft. Nontender to palpation. No guarding. EXTREMITIES: Negative for clubbing, cyanosis, or edema. DERMATOLOGIC: No rashes. MUSCULOSKELETAL: No joint effusion. NEUROLOGIC: The patient has left-sided hemiparesis. No change. Results Result Diagram: 03/10/17 0557 03/10/17 0557 Medications Medications Current Medications Pantoprazole (Protonix Tab) 40 mg DAILY@06 PO Last administered on 03/11/17 06 :37; Admin Dose 40 MG; Start 02/25/17 at 06:00 Polyethylene Glycol (Miralax) 17 gm DAILY PO Last administered on 03/11/17 08: 33; Admin Dose 17 GM; Start 02/25/17 at 09:00 Simethicone (Mylicon) 80 mg TID PRN PO DISTENSION/GAS/BLOATING Last administered on 03/01/17 03:01; Admin Dose 80 MG; Start 02/24/17 at 21:00 Zolpidem Tartrate (Ambien) 5 mg HS PRN PO INSOMNIA Last administered on 01:04; Admin Dose 5 MG; Start 02/24/17 at 21:00 Lactulose (Enulose) 20 gm TID PO Last administered on 03/11/17 21:12; Admin Dose 20 GM; Start 02/24/17 at 21:00 Meclizine HCl (Antivert) 25 mg DAILY PRN PO VERTIGO Last administered on 09:41; Admin Dose 25 MG; Start 02/24/17 at 21:00 Metoprolol Succinate (Toprol Xl) 12.5 mg BID PO Last administered on 03/11/17 21:12; Admin Dose 12.5 MG; Start 02/24/17 at 21:00 Ondansetron HCl (Zofran Inj) 4 mg Q6H PRN IV NAUSEA AND/OR VOMITING; Start at 21:00 Acetaminophen (Tylenol Tab) 650 mg Q6H PRN PO PAIN AND OR ELEVATED TEMP Last administered on 03/09/17 02:59; Admin Dose 650 MG; Start 02/24/17 at 21:00 Apixaban (Eliquis) 2.5 mg BID PO Last administered on 03/11/17 21:12; Admin Dose 2.5 MG; Start 02/24/17 at 21:00 Aspirin (Aspirin) 81 mg DAILY PO Last administered on 03/11/17 08:36; Admin Dose 81 MG; Start 02/25/17 at 09:00 Atorvastatin Calcium (Lipitor) 80 mg DAILY@21 PO Last administered on 03/06/17 20:48; Admin Dose 80 MG; Start 02/24/17 at 21:00 Clonazepam (Klonopin) 0.25 mg BID PO Last administered on 03/11/17 21:12; Admin Dose 0.25 MG; Start 02/24/17 at 21:00 Escitalopram Oxalate (Lexapro) 10 mg QHS PO Last administered on 03/11/17 21: 10; Admin Dose 10 MG; Start 02/24/17 at 21:00 Docusate Sodium (Colace) 100 mg BID PO Last administered on 03/11/17 21:10; Admin Dose 100 MG; Start 02/24/17 at 21:00 Clonidine (Catapres) 0.1 mg Q6H PRN PO SBP > 170; Start 02/24/17 at 21:00 Bisacodyl (Dulcolax Supp) 10 mg DAILY PRN [place] CONSTIPATION Last administered on 03/01/17 06:47; Admin Dose 10 MG; Start 02/25/17 at 04:30 Levetiracetam (Keppra Liquid) 750 mg TID PO Last administered on 03/11/17 21: 13; Admin Dose 750 MG; Start 02/28/17 at 23:00 TERRA RANGEL MD Mar 11, 2017 22:22
[2017-03-12] MEDS: ZOLPIDEM 5 MG TAB PO PRN (01:52)
[2017-03-12 02:00] VITALS: BP 114/63; RESP 18
[2017-03-12] MEDS: PANTOPRAZOLE (EC) 40 MG TAB PO SCH (06:29)
[2017-03-12 08:00] VITALS: BP 112/73; PULSE 81; RESP 20
[2017-03-12] MEDS: POLYETHYLENE GLYCOL 17 GM PACKET PO SCH (08:30)
[2017-03-12] MEDS: clonAZEPAM 0.5 MG TAB PO SCH ×2 (08:30→20:49)
[2017-03-12] MEDS: DOCUSATE SODIUM 100 MG CAP PO SCH ×2 (08:30→20:49)
[2017-03-12] MEDS: LEVETIRACETAM (100 MG/ML) 5ML CUP PO SCH ×3 (08:30→20:50)
[2017-03-12] MEDS: ASPIRIN 81 MG TAB PO SCH (08:30)
[2017-03-12] MEDS: LACTULOSE 30ML CUP PO SCH ×3 (08:30→20:50)
[2017-03-12] MEDS: APIXABAN 5 MG TABLET PO SCH ×2 (08:30→20:49)
[2017-03-12] MEDS: METOPROLOL (XL) 25 MG TAB PO SCH ×2 (08:31→20:50)
--- NOTE | 2017-03-12 12:19 | PN ---
DATE: 03/12/2017 SUBJECTIVE DATA: Patient is stable. No events overnight. No fevers, chills, nausea, vomiting. OBJECTIVE DATA: VITAL SIGNS: Blood pressure is 112/73, temperature 97.9, pulse 81, respirations 20. HEENT: Head is normocephalic. NECK: Supple. HEART: Regular rate. LUNGS: Diminished breath sounds at the base. ABDOMEN: Soft, nontender to palpation. No rebound or guarding. EXTREMITIES: Negative for clubbing, cyanosis. No edema. DERMATOLOGIC: Clean. No rashes. MUSCULOSKELETAL: No joint effusion. NEUROLOGIC: No change in exam. MEDICATIONS: Reviewed. LABORATORY DATA: Has been reviewed. ASSESSMENT AND PLAN: 1. Acute cerebrovascular accident with -sided hemiparesis. The patient is currently stable. Continue medical management. 2. Seizure disorder. Continue Keppra. 3. Hypertension. Continue current blood pressure regimen. 4. Anemia. Monitor hemoglobin and hematocrit levels. 5. . Continue statin therapy. 6. Paroxysmal atrial fibrillation. Currently sinus rhythm. Continue current treatment plan. 7. Depression. Continue current medical management. 8. Gastrointestinal and deep venous thrombosis prophylaxis. Dictated By: Derrick Bloom DO /anders/margarita /Document#: [id number]
--- NOTE | 2017-03-12 13:41 | CONS ---
Date/Time of Note Date/Time of Note DATE: 03/12/17 TIME: 13:40 Consult Date/Type/Reason Admit Date/Time Feb 24, 2017 at 18:19 Initial Consult Date 02/25/17 Type of Consultation: [facility] Ordering Provider: MEGAN FLORES DO Subjective Comfortable Objective pulm-cta abd-soft max assist Vital Signs Date Time Temp Pulse Resp B/P Pulse Ox O2 Delivery O2 Flow Rate FiO2 03/12/17 08:00 97.9 81 20 112/73 96 Room Air Intake and Output 03/11/17 03/11/17 03/12/17 15:00 23:00 07:00 Intake Total 400 ml 460 ml 910 ml Output Total 2 ml Balance 400 ml 458 ml 910 ml Results/Medications Result Diagram: 03/10/17 0557 03/10/17 0557 Medications Current Medications Pantoprazole (Protonix Tab) 40 mg DAILY@06 PO Last administered on 03/12/17 06 :29; Admin Dose 40 MG; Start 02/25/17 at 06:00 Polyethylene Glycol (Miralax) 17 gm DAILY PO Last administered on 03/12/17 08: 30; Admin Dose 17 GM; Start 02/25/17 at 09:00 Simethicone (Mylicon) 80 mg TID PRN PO DISTENSION/GAS/BLOATING Last administered on 03/01/17 03:01; Admin Dose 80 MG; Start 02/24/17 at 21:00 Zolpidem Tartrate (Ambien) 5 mg HS PRN PO INSOMNIA Last administered on 01:52; Admin Dose 5 MG; Start 02/24/17 at 21:00 Lactulose (Enulose) 20 gm TID PO Last administered on 03/12/17 08:30; Admin Dose 20 GM; Start 02/24/17 at 21:00 Meclizine HCl (Antivert) 25 mg DAILY PRN PO VERTIGO Last administered on 09:41; Admin Dose 25 MG; Start 02/24/17 at 21:00 Metoprolol Succinate (Toprol Xl) 12.5 mg BID PO Last administered on 03/11/17 21:12; Admin Dose 12.5 MG; Start 02/24/17 at 21:00 Ondansetron HCl (Zofran Inj) 4 mg Q6H PRN IV NAUSEA AND/OR VOMITING; Start at 21:00 Acetaminophen (Tylenol Tab) 650 mg Q6H PRN PO PAIN AND OR ELEVATED TEMP Last administered on 03/09/17 02:59; Admin Dose 650 MG; Start 02/24/17 at 21:00 Apixaban (Eliquis) 2.5 mg BID PO Last administered on 03/12/17 08:30; Admin Dose 2.5 MG; Start 02/24/17 at 21:00 Aspirin (Aspirin) 81 mg DAILY PO Last administered on 03/12/17 08:30; Admin Dose 81 MG; Start 02/25/17 at 09:00 Atorvastatin Calcium (Lipitor) 80 mg DAILY@21 PO Last administered on 03/06/17 20:48; Admin Dose 80 MG; Start 02/24/17 at 21:00 Clonazepam (Klonopin) 0.25 mg BID PO Last administered on 03/12/17 08:30; Admin Dose 0.25 MG; Start 02/24/17 at 21:00 Escitalopram Oxalate (Lexapro) 10 mg QHS PO Last administered on 03/11/17 21: 10; Admin Dose 10 MG; Start 02/24/17 at 21:00 Docusate Sodium (Colace) 100 mg BID PO Last administered on 03/12/17 08:30; Admin Dose 100 MG; Start 02/24/17 at 21:00 Clonidine (Catapres) 0.1 mg Q6H PRN PO SBP > 170; Start 02/24/17 at 21:00 Bisacodyl (Dulcolax Supp) 10 mg DAILY PRN [place] CONSTIPATION Last administered on 03/01/17 06:47; Admin Dose 10 MG; Start 02/25/17 at 04:30 Levetiracetam (Keppra Liquid) 750 mg TID PO Last administered on 03/12/17 13: 04; Admin Dose 750 MG; Start 02/28/17 at 23:00 Assessment/Plan Additional Assessment/Plan Rehab- 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 Son receiving family training Possible seizure disorder. Hypertension. Urinary tract infection. Coronary artery disease. Dyslipidemia. Paroxysmal atrial fibrillation. Anemia. History of cerebrovascular accident. FARIDEH COOK MD Mar 12, 2017 13:41
--- NOTE | 2017-03-12 14:48 | CONS ---
Date/Time of Note Date/Time of Note DATE: 03/12/17 TIME: 14:46 Assessment/Plan Assessment/Plan Additional Assessment/Plan 1. Syncope. -NL EF by echo/RV enlargement with NL RV function/negative trop x 3/negative orthostatics/no sig arrythmias by ecg. Area of acute infarct by MRI - more alert, will adjust Rx as needed - STABLE NOW 2. Hypertension-well controlled and tolerating medications- well controlled now, will monitor 3. Dyslipidemia. 4. History of cerebrovascular accident- in rehab now - COMPLIANT 5. Dementia - more alert now. 6. Possible urinary tract infection- on anti-Bx. 7. PAF on xarelto/BB - rate controlled. 8. H/O cva-acute on chronic by MRI this admit Consultation Date/Type/Reason Admit Date/Time Feb 24, 2017 at 18:19 Initial Consult Date 02/25/17 Type of Consultation: [facility] Referring Provider: MEGAN FLORES DO 24 HR Interval Summary Free Text/Dictation No acute events - con't rehab, ROS: No fever, no chills, no nausea, no vomiting, no diarrhea/constipation No recent weight changes No chest pain, no PND, no orthopnea No dizziness, blurred vision No thirst, no heat or cold intolerance Exam/Review of Systems Vital Signs Vitals Vital Signs Date Time Temp Pulse Resp B/P Pulse Ox O2 Delivery O2 Flow Rate FiO2 03/12/17 08:00 97.9 81 20 112/73 96 Room Air Intake and Output 03/11/17 03/11/17 03/12/17 15:00 23:00 07:00 Intake Total 400 ml 460 ml 910 ml Output Total 2 ml Balance 400 ml 458 ml 910 ml Exam General: WN/WD/NAD, AOx 1-2 HEENT: Unicetric/atraumatic/EOMI (follow commands) NECK: JVD elevated, no thyromegaly Lymph: no lymphadenopathy HEART: regular with no S3, II/ systolic murmur at apex LUNGS: Coarse sounds ABD: soft, NT, ND, +BS : Intact Neuro: post Cva SKIN: chronic changes EXT: trace edema Results Result Diagram: 03/10/17 0557 03/10/17 0557 Medications Medications Current Medications Pantoprazole (Protonix Tab) 40 mg DAILY@06 PO Last administered on 03/12/17 06 :29; Admin Dose 40 MG; Start 02/25/17 at 06:00 Polyethylene Glycol (Miralax) 17 gm DAILY PO Last administered on 03/12/17 08: 30; Admin Dose 17 GM; Start 02/25/17 at 09:00 Simethicone (Mylicon) 80 mg TID PRN PO DISTENSION/GAS/BLOATING Last administered on 03/01/17 03:01; Admin Dose 80 MG; Start 02/24/17 at 21:00 Zolpidem Tartrate (Ambien) 5 mg HS PRN PO INSOMNIA Last administered on 01:52; Admin Dose 5 MG; Start 02/24/17 at 21:00 Lactulose (Enulose) 20 gm TID PO Last administered on 03/12/17 08:30; Admin Dose 20 GM; Start 02/24/17 at 21:00 Meclizine HCl (Antivert) 25 mg DAILY PRN PO VERTIGO Last administered on 09:41; Admin Dose 25 MG; Start 02/24/17 at 21:00 Metoprolol Succinate (Toprol Xl) 12.5 mg BID PO Last administered on 03/11/17 21:12; Admin Dose 12.5 MG; Start 02/24/17 at 21:00 Ondansetron HCl (Zofran Inj) 4 mg Q6H PRN IV NAUSEA AND/OR VOMITING; Start at 21:00 Acetaminophen (Tylenol Tab) 650 mg Q6H PRN PO PAIN AND OR ELEVATED TEMP Last administered on 03/09/17 02:59; Admin Dose 650 MG; Start 02/24/17 at 21:00 Apixaban (Eliquis) 2.5 mg BID PO Last administered on 03/12/17 08:30; Admin Dose 2.5 MG; Start 02/24/17 at 21:00 Aspirin (Aspirin) 81 mg DAILY PO Last administered on 03/12/17 08:30; Admin Dose 81 MG; Start 02/25/17 at 09:00 Atorvastatin Calcium (Lipitor) 80 mg DAILY@21 PO Last administered on 03/06/17 20:48; Admin Dose 80 MG; Start 02/24/17 at 21:00 Clonazepam (Klonopin) 0.25 mg BID PO Last administered on 03/12/17 08:30; Admin Dose 0.25 MG; Start 02/24/17 at 21:00 Escitalopram Oxalate (Lexapro) 10 mg QHS PO Last administered on 03/11/17 21: 10; Admin Dose 10 MG; Start 02/24/17 at 21:00 Docusate Sodium (Colace) 100 mg BID PO Last administered on 03/12/17 08:30; Admin Dose 100 MG; Start 02/24/17 at 21:00 Clonidine (Catapres) 0.1 mg Q6H PRN PO SBP > 170; Start 02/24/17 at 21:00 Bisacodyl (Dulcolax Supp) 10 mg DAILY PRN [place] CONSTIPATION Last administered on 03/01/17 06:47; Admin Dose 10 MG; Start 02/25/17 at 04:30 Levetiracetam (Keppra Liquid) 750 mg TID PO Last administered on 03/12/17 13: 04; Admin Dose 750 MG; Start 02/28/17 at 23:00 NAGI NARANJO MD Mar 12, 2017 14:48
[2017-03-12 16:15] VITALS: BP 100/58; RESP 18
--- NOTE | 2017-03-12 16:36 | CONS ---
Date/Time of Note Date/Time of Note DATE: 03/12/17 TIME: 16:36 Assessment/Plan Assessment/Plan Chief Complaint/Hosp Course Hypercoagulable state Acute cerebrovascular accident. The patient will continue current medical management of Eliquis, aspirin, and Lipitor. ANEMIA- COMPLEX, MULTIFACTORIAL LOOKS COMPENSATED AT PRESENT CONT TO MONITOR Seizure disorder. Continue Keppra. Hypertension. Continue current blood pressure regimen. This is status post urinary tract infection. Coronary artery disease. Continue current medical management. Continue statin therapy. Dementia. Paroxysmal atrial fibrillation, currently in sinus rhythm. Anxiety and depression. Continue Lexapro. Gastrointestinal and deep venous thrombosis prophylaxis. Continue proton pump inhibitor and Eliquis Problems: Consultation Date/Type/Reason Admit Date/Time Feb 24, 2017 at 18:19 Initial Consult Date 02/25/17 Type of Consultation: [facility] Referring Provider: MEGAN FLORES DO 24 HR Interval Summary Free Text/Dictation ALL NOTED MORE STABLE Exam/Review of Systems Vital Signs Vitals Vital Signs Date Time Temp Pulse Resp B/P Pulse Ox O2 Delivery O2 Flow Rate FiO2 03/12/17 08:00 97.9 81 20 112/73 96 Room Air Intake and Output 03/11/17 03/11/17 03/12/17 15:00 23:00 07:00 Intake Total 400 ml 460 ml 910 ml Output Total 2 ml Balance 400 ml 458 ml 910 ml Exam HEENT: Head is normocephalic. NECK: Supple. HEART: Regular rate. LUNGS: Diminished breath sounds at the base. ABDOMEN: Soft. Nontender to palpation. No guarding. EXTREMITIES: Negative for clubbing, cyanosis, or edema. DERMATOLOGIC: No rashes. MUSCULOSKELETAL: No joint effusion. NEUROLOGIC: The patient has left-sided hemiparesis. No change. Results Result Diagram: 03/10/17 0557 03/10/17 0557 Medications Medications Current Medications Pantoprazole (Protonix Tab) 40 mg DAILY@06 PO Last administered on 03/12/17 06 :29; Admin Dose 40 MG; Start 02/25/17 at 06:00 Polyethylene Glycol (Miralax) 17 gm DAILY PO Last administered on 03/12/17 08: 30; Admin Dose 17 GM; Start 02/25/17 at 09:00 Simethicone (Mylicon) 80 mg TID PRN PO DISTENSION/GAS/BLOATING Last administered on 03/01/17 03:01; Admin Dose 80 MG; Start 02/24/17 at 21:00 Zolpidem Tartrate (Ambien) 5 mg HS PRN PO INSOMNIA Last administered on 01:52; Admin Dose 5 MG; Start 02/24/17 at 21:00 Lactulose (Enulose) 20 gm TID PO Last administered on 03/12/17 08:30; Admin Dose 20 GM; Start 02/24/17 at 21:00 Meclizine HCl (Antivert) 25 mg DAILY PRN PO VERTIGO Last administered on 09:41; Admin Dose 25 MG; Start 02/24/17 at 21:00 Metoprolol Succinate (Toprol Xl) 12.5 mg BID PO Last administered on 03/11/17 21:12; Admin Dose 12.5 MG; Start 02/24/17 at 21:00 Ondansetron HCl (Zofran Inj) 4 mg Q6H PRN IV NAUSEA AND/OR VOMITING; Start at 21:00 Acetaminophen (Tylenol Tab) 650 mg Q6H PRN PO PAIN AND OR ELEVATED TEMP Last administered on 03/09/17 02:59; Admin Dose 650 MG; Start 02/24/17 at 21:00 Apixaban (Eliquis) 2.5 mg BID PO Last administered on 03/12/17 08:30; Admin Dose 2.5 MG; Start 02/24/17 at 21:00 Aspirin (Aspirin) 81 mg DAILY PO Last administered on 03/12/17 08:30; Admin Dose 81 MG; Start 02/25/17 at 09:00 Atorvastatin Calcium (Lipitor) 80 mg DAILY@21 PO Last administered on 03/06/17 20:48; Admin Dose 80 MG; Start 02/24/17 at 21:00 Clonazepam (Klonopin) 0.25 mg BID PO Last administered on 03/12/17 08:30; Admin Dose 0.25 MG; Start 02/24/17 at 21:00 Escitalopram Oxalate (Lexapro) 10 mg QHS PO Last administered on 03/11/17 21: 10; Admin Dose 10 MG; Start 02/24/17 at 21:00 Docusate Sodium (Colace) 100 mg BID PO Last administered on 03/12/17 08:30; Admin Dose 100 MG; Start 02/24/17 at 21:00 Clonidine (Catapres) 0.1 mg Q6H PRN PO SBP > 170; Start 02/24/17 at 21:00 Bisacodyl (Dulcolax Supp) 10 mg DAILY PRN [place] CONSTIPATION Last administered on 03/01/17 06:47; Admin Dose 10 MG; Start 02/25/17 at 04:30 Levetiracetam (Keppra Liquid) 750 mg TID PO Last administered on 03/12/17 13: 04; Admin Dose 750 MG; Start 02/28/17 at 23:00 TERRA RANGEL MD Mar 12, 2017 16:36
[2017-03-12 20:00] VITALS: BP 105/59; RESP 18
[2017-03-12] MEDS: ESCITALOPRAM 10 MG TAB PO SCH (20:49)
[2017-03-12] MEDS: ATORVASTATIN 80 MG TAB PO SCH (20:50)
[2017-03-13] MEDS: ZOLPIDEM 5 MG TAB PO PRN ×2 (01:04→22:40)
[2017-03-13 02:00] VITALS: BP 116/68; RESP 18
[2017-03-13] MEDS: PANTOPRAZOLE (EC) 40 MG TAB PO SCH (06:24)
[2017-03-13] MEDS: APIXABAN 5 MG TABLET PO SCH ×2 (08:36→20:52)
[2017-03-13] MEDS: DOCUSATE SODIUM 100 MG CAP PO SCH ×2 (08:36→20:52)
[2017-03-13] MEDS: clonAZEPAM 0.5 MG TAB PO SCH ×2 (08:36→20:53)
[2017-03-13] MEDS: ASPIRIN 81 MG TAB PO SCH (08:37)
[2017-03-13] MEDS: METOPROLOL (XL) 25 MG TAB PO SCH ×2 (08:37→20:53)
[2017-03-13] MEDS: LEVETIRACETAM (100 MG/ML) 5ML CUP PO SCH ×3 (08:38→20:53)
[2017-03-13] MEDS: POLYETHYLENE GLYCOL 17 GM PACKET PO SCH (08:46)
[2017-03-13] MEDS: LACTULOSE 30ML CUP PO SCH ×4 (08:46→20:53)
--- NOTE | 2017-03-13 10:32 | CONS ---
Date/Time of Note Date/Time of Note DATE: 03/13/17 TIME: 10:31 Consult Date/Type/Reason Admit Date/Time Feb 24, 2017 at 18:19 Initial Consult Date 02/25/17 Type of Consultation: [facility] Ordering Provider: MEGAN FLORES DO Subjective Comfortable Objective pulm-cta max assist Vital Signs Date Time Temp Pulse Resp B/P Pulse Ox O2 Delivery O2 Flow Rate FiO2 03/13/17 02:00 98.0 68 18 116/68 96 03/12/17 08:00 Room Air Intake and Output 03/12/17 03/12/17 03/13/17 14:59 22:59 06:59 Intake Total 880 ml Balance 880 ml Results/Medications Result Diagram: 03/10/17 0557 03/10/17 0557 Medications Current Medications Pantoprazole (Protonix Tab) 40 mg DAILY@06 PO Last administered on 03/13/17 06 :24; Admin Dose 40 MG; Start 02/25/17 at 06:00 Polyethylene Glycol (Miralax) 17 gm DAILY PO Last administered on 03/12/17 08: 30; Admin Dose 17 GM; Start 02/25/17 at 09:00 Simethicone (Mylicon) 80 mg TID PRN PO DISTENSION/GAS/BLOATING Last administered on 03/01/17 03:01; Admin Dose 80 MG; Start 02/24/17 at 21:00 Zolpidem Tartrate (Ambien) 5 mg HS PRN PO INSOMNIA Last administered on 01:04; Admin Dose 5 MG; Start 02/24/17 at 21:00 Lactulose (Enulose) 20 gm TID PO Last administered on 03/12/17 20:50; Admin Dose 20 GM; Start 02/24/17 at 21:00 Meclizine HCl (Antivert) 25 mg DAILY PRN PO VERTIGO Last administered on 09:41; Admin Dose 25 MG; Start 02/24/17 at 21:00 Metoprolol Succinate (Toprol Xl) 12.5 mg BID PO Last administered on 03/13/17 08:37; Admin Dose 12.5 MG; Start 02/24/17 at 21:00 Ondansetron HCl (Zofran Inj) 4 mg Q6H PRN IV NAUSEA AND/OR VOMITING; Start at 21:00 Acetaminophen (Tylenol Tab) 650 mg Q6H PRN PO PAIN AND OR ELEVATED TEMP Last administered on 03/09/17 02:59; Admin Dose 650 MG; Start 02/24/17 at 21:00 Apixaban (Eliquis) 2.5 mg BID PO Last administered on 03/13/17 08:36; Admin Dose 2.5 MG; Start 02/24/17 at 21:00 Aspirin (Aspirin) 81 mg DAILY PO Last administered on 03/13/17 08:37; Admin Dose 81 MG; Start 02/25/17 at 09:00 Atorvastatin Calcium (Lipitor) 80 mg DAILY@21 PO Last administered on 03/06/17 20:48; Admin Dose 80 MG; Start 02/24/17 at 21:00 Clonazepam (Klonopin) 0.25 mg BID PO Last administered on 03/13/17 08:36; Admin Dose 0.25 MG; Start 02/24/17 at 21:00 Escitalopram Oxalate (Lexapro) 10 mg QHS PO Last administered on 03/12/17 20: 49; Admin Dose 10 MG; Start 02/24/17 at 21:00 Docusate Sodium (Colace) 100 mg BID PO Last administered on 03/13/17 08:36; Admin Dose 100 MG; Start 02/24/17 at 21:00 Clonidine (Catapres) 0.1 mg Q6H PRN PO SBP > 170; Start 02/24/17 at 21:00 Bisacodyl (Dulcolax Supp) 10 mg DAILY PRN [place] CONSTIPATION Last administered on 03/01/17 06:47; Admin Dose 10 MG; Start 02/25/17 at 04:30 Levetiracetam (Keppra Liquid) 750 mg TID PO Last administered on 03/13/17 08: 38; Admin Dose 750 MG; Start 02/28/17 at 23:00 Assessment/Plan Additional Assessment/Plan Rehab- 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 Son receiving family training, they will need a maria d lift Possible seizure disorder. Hypertension. Urinary tract infection. Coronary artery disease. Dyslipidemia. Paroxysmal atrial fibrillation. Anemia. History of cerebrovascular accident. FARIDEH COOK MD Mar 13, 2017 10:32
--- NOTE | 2017-03-13 12:14 | PN ---
Date/Time of Note Date/Time of Note DATE: 03/13/17 TIME: 12:13 Assessment/Plan VTE Prophylaxis VTE Prophylaxis Intervention: other Lines/Catheters IV [facility] Saline Lock Urinary Cath still in place: No Assessment/Plan Chief Complaint/Hosp Course Medicine follow up Patient is stable. No acute events overnight. No fevers, chills, nausea, vomiting. d/w Dr Bloom OBJECTIVE DATA: HEENT: Head is normocephalic. NECK: Supple. HEART: Regular rate. LUNGS: Show diminished breath sounds at the base. ABDOMEN: Soft, nontender to palpation. No rebound or guarding. EXTREMITIES: Negative for clubbing, cyanosis. No edema. DERMATOLOGIC: Clean. No rashes. MUSCULOSKELETAL: No joint effusion. NEUROLOGIC: Unchanged exam. MEDICATIONS: Reviewed. LABORATORY AND DIAGNOSTIC DATA: Reviewed. No new labs. ASSESSMENT AND PLAN: 1. Acute cerebrovascular accident. The patient is currently stable. Continue medical management with Eliquis, aspirin, and Lipitor. 2. Seizure disorder. Continue Keppra. 3. Hypertension. will decrease lisinopril dose 4. Coronary artery disease. Continue medical management. 5. Dyslipidemia. Continue statin therapy. 6. Anemia. Monitor H and H levels. 7. History of dementia. 8. Paroxysmal atrial fibrillation. Currently in sinus rhythm. 9. Anxiety and depression. 10. Status post urinary tract infection. 11. Gastrointestinal and deep venous thrombosis prophylaxis. Problems: Exam/Review of Systems Vital Signs Vitals Vital Signs Date Time Temp Pulse Resp B/P Pulse Ox O2 Delivery O2 Flow Rate FiO2 03/13/17 02:00 98.0 68 18 116/68 96 03/12/17 08:00 Room Air Intake and Output 03/12/17 03/12/17 03/13/17 15:00 23:00 07:00 Intake Total 880 ml Balance 880 ml Results Result Diagram: 03/10/17 0557 03/10/17 0557 Medications Medications Current Medications Pantoprazole (Protonix Tab) 40 mg DAILY@06 PO Last administered on 03/13/17 06 :24; Admin Dose 40 MG; Start 02/25/17 at 06:00 Polyethylene Glycol (Miralax) 17 gm DAILY PO Last administered on 03/12/17 08: 30; Admin Dose 17 GM; Start 02/25/17 at 09:00 Simethicone (Mylicon) 80 mg TID PRN PO DISTENSION/GAS/BLOATING Last administered on 03/01/17 03:01; Admin Dose 80 MG; Start 02/24/17 at 21:00 Zolpidem Tartrate (Ambien) 5 mg HS PRN PO INSOMNIA Last administered on 01:04; Admin Dose 5 MG; Start 02/24/17 at 21:00 Lactulose (Enulose) 20 gm TID PO Last administered on 03/12/17 20:50; Admin Dose 20 GM; Start 02/24/17 at 21:00 Meclizine HCl (Antivert) 25 mg DAILY PRN PO VERTIGO Last administered on 09:41; Admin Dose 25 MG; Start 02/24/17 at 21:00 Metoprolol Succinate (Toprol Xl) 12.5 mg BID PO Last administered on 03/13/17 08:37; Admin Dose 12.5 MG; Start 02/24/17 at 21:00 Ondansetron HCl (Zofran Inj) 4 mg Q6H PRN IV NAUSEA AND/OR VOMITING; Start at 21:00 Acetaminophen (Tylenol Tab) 650 mg Q6H PRN PO PAIN AND OR ELEVATED TEMP Last administered on 03/09/17 02:59; Admin Dose 650 MG; Start 02/24/17 at 21:00 Apixaban (Eliquis) 2.5 mg BID PO Last administered on 03/13/17 08:36; Admin Dose 2.5 MG; Start 02/24/17 at 21:00 Aspirin (Aspirin) 81 mg DAILY PO Last administered on 03/13/17 08:37; Admin Dose 81 MG; Start 02/25/17 at 09:00 Atorvastatin Calcium (Lipitor) 80 mg DAILY@21 PO Last administered on 03/06/17 20:48; Admin Dose 80 MG; Start 02/24/17 at 21:00 Clonazepam (Klonopin) 0.25 mg BID PO Last administered on 03/13/17 08:36; Admin Dose 0.25 MG; Start 02/24/17 at 21:00 Escitalopram Oxalate (Lexapro) 10 mg QHS PO Last administered on 03/12/17 20: 49; Admin Dose 10 MG; Start 02/24/17 at 21:00 Docusate Sodium (Colace) 100 mg BID PO Last administered on 03/13/17 08:36; Admin Dose 100 MG; Start 02/24/17 at 21:00 Clonidine (Catapres) 0.1 mg Q6H PRN PO SBP > 170; Start 02/24/17 at 21:00 Bisacodyl (Dulcolax Supp) 10 mg DAILY PRN [place] CONSTIPATION Last administered on 03/01/17 06:47; Admin Dose 10 MG; Start 02/25/17 at 04:30 Levetiracetam (Keppra Liquid) 750 mg TID PO Last administered on 03/13/17 08: 38; Admin Dose 750 MG; Start 02/28/17 at 23:00 FORTUNATO ALBERTO DO Mar 13, 2017 12:14
[2017-03-13 14:00] VITALS: BP 104/60; RESP 18
--- NOTE | 2017-03-13 14:58 | CONS ---
Date/Time of Note Date/Time of Note DATE: 03/13/17 TIME: 14:56 Assessment/Plan Assessment/Plan Additional Assessment/Plan 1. Syncope. -NL EF by echo/RV enlargement with NL RV function/negative trop x 3/negative orthostatics/no sig arrythmias by ecg. Area of acute infarct by MRI - more alert, will adjust Rx as needed - STABLE NOW - nochange - co't to recover. 2. Hypertension-well controlled and tolerating medications- well controlled now, will monitor 3. Dyslipidemia. 4. History of cerebrovascular accident- in rehab now - COMPLIANT 5. Dementia - more alert now. STABLE. 6. Possible urinary tract infection- on anti-Bx. 7. PAF on xarelto/BB - rate controlled. 8. H/O cva-acute on chronic by MRI this admit - rehab now Consultation Date/Type/Reason Admit Date/Time Feb 24, 2017 at 18:19 Initial Consult Date 02/25/17 Type of Consultation: [facility] Referring Provider: MEGAN FLORES DO 24 HR Interval Summary Free Text/Dictation NO acute events - BP stable - con't rehab now ROS: No fever, no chills, no nausea, no vomiting, no diarrhea/constipation No recent weight changes No chest pain, no PND, no orthopnea No dizziness, blurred vision No thirst, no heat or cold intolerance Exam/Review of Systems Vital Signs Vitals Vital Signs Date Time Temp Pulse Resp B/P Pulse Ox O2 Delivery O2 Flow Rate FiO2 03/13/17 02:00 98.0 68 18 116/68 96 03/12/17 08:00 Room Air Intake and Output 03/12/17 03/12/17 03/13/17 15:00 23:00 07:00 Intake Total 880 ml Balance 880 ml Exam General: WN/WD/NAD, AOx comfortable HEENT: Unicetric/atraumatic/EOMI (follows commands) NECK: JVD elevated, no thyromegaly Lymph: no lymphadenopathy HEART: regular with no S3, II/ systolic murmur at apex LUNGS: Coarse sounds ABD: soft, NT, ND, +BS : Intact Neuro: non focal SKIN: chronic changes EXT: trace edema Results Result Diagram: 03/10/17 0557 03/10/17 0557 Medications Medications Current Medications Pantoprazole (Protonix Tab) 40 mg DAILY@06 PO Last administered on 03/13/17 06 :24; Admin Dose 40 MG; Start 02/25/17 at 06:00 Polyethylene Glycol (Miralax) 17 gm DAILY PO Last administered on 03/12/17 08: 30; Admin Dose 17 GM; Start 02/25/17 at 09:00 Simethicone (Mylicon) 80 mg TID PRN PO DISTENSION/GAS/BLOATING Last administered on 03/01/17 03:01; Admin Dose 80 MG; Start 02/24/17 at 21:00 Zolpidem Tartrate (Ambien) 5 mg HS PRN PO INSOMNIA Last administered on 01:04; Admin Dose 5 MG; Start 02/24/17 at 21:00 Lactulose (Enulose) 20 gm TID PO Last administered on 03/12/17 20:50; Admin Dose 20 GM; Start 02/24/17 at 21:00 Meclizine HCl (Antivert) 25 mg DAILY PRN PO VERTIGO Last administered on 09:41; Admin Dose 25 MG; Start 02/24/17 at 21:00 Metoprolol Succinate (Toprol Xl) 12.5 mg BID PO Last administered on 03/13/17 08:37; Admin Dose 12.5 MG; Start 02/24/17 at 21:00 Ondansetron HCl (Zofran Inj) 4 mg Q6H PRN IV NAUSEA AND/OR VOMITING; Start at 21:00 Acetaminophen (Tylenol Tab) 650 mg Q6H PRN PO PAIN AND OR ELEVATED TEMP Last administered on 03/09/17 02:59; Admin Dose 650 MG; Start 02/24/17 at 21:00 Apixaban (Eliquis) 2.5 mg BID PO Last administered on 03/13/17 08:36; Admin Dose 2.5 MG; Start 02/24/17 at 21:00 Aspirin (Aspirin) 81 mg DAILY PO Last administered on 03/13/17 08:37; Admin Dose 81 MG; Start 02/25/17 at 09:00 Atorvastatin Calcium (Lipitor) 80 mg DAILY@21 PO Last administered on 03/06/17 20:48; Admin Dose 80 MG; Start 02/24/17 at 21:00 Clonazepam (Klonopin) 0.25 mg BID PO Last administered on 03/13/17 08:36; Admin Dose 0.25 MG; Start 02/24/17 at 21:00 Escitalopram Oxalate (Lexapro) 10 mg QHS PO Last administered on 03/12/17 20: 49; Admin Dose 10 MG; Start 02/24/17 at 21:00 Docusate Sodium (Colace) 100 mg BID PO Last administered on 03/13/17 08:36; Admin Dose 100 MG; Start 02/24/17 at 21:00 Clonidine (Catapres) 0.1 mg Q6H PRN PO SBP > 170; Start 02/24/17 at 21:00 Bisacodyl (Dulcolax Supp) 10 mg DAILY PRN [place] CONSTIPATION Last administered on 03/01/17 06:47; Admin Dose 10 MG; Start 02/25/17 at 04:30 Levetiracetam (Keppra Liquid) 750 mg TID PO Last administered on 03/13/17 13: 02; Admin Dose 750 MG; Start 02/28/17 at 23:00 NAGI NARANJO MD Mar 13, 2017 14:58
--- NOTE | 2017-03-13 19:11 | CONS ---
Date/Time of Note Date/Time of Note DATE: 03/13/17 TIME: 19:11 Assessment/Plan Assessment/Plan Chief Complaint/Hosp Course Hypercoagulable state Acute cerebrovascular accident. The patient will continue current medical management of Eliquis, aspirin, and Lipitor. ANEMIA- COMPLEX, MULTIFACTORIAL LOOKS COMPENSATED AT PRESENT CONT TO MONITOR Seizure disorder. Continue Keppra. Hypertension. Continue current blood pressure regimen. This is status post urinary tract infection. Coronary artery disease. Continue current medical management. Continue statin therapy. Dementia. Paroxysmal atrial fibrillation, currently in sinus rhythm. Anxiety and depression. Continue Lexapro. Gastrointestinal and deep venous thrombosis prophylaxis. Continue proton pump inhibitor and Eliquis Problems: Consultation Date/Type/Reason Admit Date/Time Feb 24, 2017 at 18:19 Initial Consult Date 02/25/17 Type of Consultation: [facility] Referring Provider: MEGAN FLORES DO 24 HR Interval Summary Free Text/Dictation ALL NOTED NO NEW EVENTS Exam/Review of Systems Vital Signs Vitals Vital Signs Date Time Temp Pulse Resp B/P Pulse Ox O2 Delivery O2 Flow Rate FiO2 03/13/17 14:00 98.5 68 18 104/60 94 03/12/17 08:00 Room Air Intake and Output 03/12/17 03/12/17 03/13/17 15:00 23:00 07:00 Intake Total 880 ml Balance 880 ml Exam HEENT: Head is normocephalic. NECK: Supple. HEART: Regular rate. LUNGS: Diminished breath sounds at the base. ABDOMEN: Soft. Nontender to palpation. No guarding. EXTREMITIES: Negative for clubbing, cyanosis, or edema. DERMATOLOGIC: No rashes. MUSCULOSKELETAL: No joint effusion. NEUROLOGIC: The patient has left-sided hemiparesis. No change. Results Result Diagram: 03/10/17 0557 03/10/17 0557 Medications Medications Current Medications Pantoprazole (Protonix Tab) 40 mg DAILY@06 PO Last administered on 03/13/17 06 :24; Admin Dose 40 MG; Start 02/25/17 at 06:00 Polyethylene Glycol (Miralax) 17 gm DAILY PO Last administered on 03/12/17 08: 30; Admin Dose 17 GM; Start 02/25/17 at 09:00 Simethicone (Mylicon) 80 mg TID PRN PO DISTENSION/GAS/BLOATING Last administered on 03/01/17 03:01; Admin Dose 80 MG; Start 02/24/17 at 21:00 Zolpidem Tartrate (Ambien) 5 mg HS PRN PO INSOMNIA Last administered on 01:04; Admin Dose 5 MG; Start 02/24/17 at 21:00 Lactulose (Enulose) 20 gm TID PO Last administered on 03/12/17 20:50; Admin Dose 20 GM; Start 02/24/17 at 21:00 Meclizine HCl (Antivert) 25 mg DAILY PRN PO VERTIGO Last administered on 09:41; Admin Dose 25 MG; Start 02/24/17 at 21:00 Metoprolol Succinate (Toprol Xl) 12.5 mg BID PO Last administered on 03/13/17 08:37; Admin Dose 12.5 MG; Start 02/24/17 at 21:00 Ondansetron HCl (Zofran Inj) 4 mg Q6H PRN IV NAUSEA AND/OR VOMITING; Start at 21:00 Acetaminophen (Tylenol Tab) 650 mg Q6H PRN PO PAIN AND OR ELEVATED TEMP Last administered on 03/09/17 02:59; Admin Dose 650 MG; Start 02/24/17 at 21:00 Apixaban (Eliquis) 2.5 mg BID PO Last administered on 03/13/17 08:36; Admin Dose 2.5 MG; Start 02/24/17 at 21:00 Aspirin (Aspirin) 81 mg DAILY PO Last administered on 03/13/17 08:37; Admin Dose 81 MG; Start 02/25/17 at 09:00 Atorvastatin Calcium (Lipitor) 80 mg DAILY@21 PO Last administered on 03/06/17 20:48; Admin Dose 80 MG; Start 02/24/17 at 21:00 Clonazepam (Klonopin) 0.25 mg BID PO Last administered on 03/13/17 08:36; Admin Dose 0.25 MG; Start 02/24/17 at 21:00 Escitalopram Oxalate (Lexapro) 10 mg QHS PO Last administered on 03/12/17 20: 49; Admin Dose 10 MG; Start 02/24/17 at 21:00 Docusate Sodium (Colace) 100 mg BID PO Last administered on 03/13/17 08:36; Admin Dose 100 MG; Start 02/24/17 at 21:00 Clonidine (Catapres) 0.1 mg Q6H PRN PO SBP > 170; Start 02/24/17 at 21:00 Bisacodyl (Dulcolax Supp) 10 mg DAILY PRN [place] CONSTIPATION Last administered on 03/01/17 06:47; Admin Dose 10 MG; Start 02/25/17 at 04:30 Levetiracetam (Keppra Liquid) 750 mg TID PO Last administered on 03/13/17 13: 02; Admin Dose 750 MG; Start 02/28/17 at 23:00 TERRA RANGEL MD Mar 13, 2017 19:11
[2017-03-13 20:00] VITALS: BP 100/60; PULSE 83; RESP 18
[2017-03-13] MEDS: ESCITALOPRAM 10 MG TAB PO SCH (20:52)
[2017-03-13] MEDS: ATORVASTATIN 80 MG TAB PO SCH (20:53)
[2017-03-13] MEDS: ACETAMINOPHEN 325 MG TAB PO PRN (22:40)
[2017-03-14] MEDS: PANTOPRAZOLE (EC) 40 MG TAB PO SCH (06:25)
[2017-03-14 07:30] VITALS: BP 114/72; RESP 18
[2017-03-14] MEDS: LEVETIRACETAM (100 MG/ML) 5ML CUP PO SCH ×3 (08:19→21:25)
[2017-03-14] MEDS: clonAZEPAM 0.5 MG TAB PO SCH ×2 (08:20→21:23)
[2017-03-14] MEDS: METOPROLOL (XL) 25 MG TAB PO SCH ×2 (08:21→21:00)
[2017-03-14] MEDS: DOCUSATE SODIUM 100 MG CAP PO SCH ×2 (08:21→21:21)
[2017-03-14] MEDS: LACTULOSE 30ML CUP PO SCH ×3 (08:22→21:25)
[2017-03-14] MEDS: POLYETHYLENE GLYCOL 17 GM PACKET PO SCH (08:22)
[2017-03-14] MEDS: ASPIRIN 81 MG TAB PO SCH (08:22)
[2017-03-14] MEDS: APIXABAN 5 MG TABLET PO SCH ×2 (08:22→21:23)
--- NOTE | 2017-03-14 10:41 | PN ---
Date/Time of Note Date/Time of Note DATE: 03/14/17 TIME: 10:41 Assessment/Plan VTE Prophylaxis VTE Prophylaxis Intervention: other Lines/Catheters IV Catheter Type (from Rust): Saline Lock Urinary Cath still in place: No Assessment/Plan Chief Complaint/Hosp Course Medicine follow up Patient is stable. No acute events overnight. No fevers, chills, nausea, vomiting. d/w Dr Bloom OBJECTIVE DATA: HEENT: Head is normocephalic. NECK: Supple. HEART: Regular rate. LUNGS: Show diminished breath sounds at the base. ABDOMEN: Soft, nontender to palpation. No rebound or guarding. EXTREMITIES: Negative for clubbing, cyanosis. No edema. DERMATOLOGIC: Clean. No rashes. MUSCULOSKELETAL: No joint effusion. NEUROLOGIC: Unchanged exam. MEDICATIONS: Reviewed. LABORATORY AND DIAGNOSTIC DATA: Reviewed. No new labs. ASSESSMENT AND PLAN: 1. Acute cerebrovascular accident. The patient is currently stable. Continue medical management with Eliquis, aspirin, and Lipitor. 2. Seizure disorder. Continue Keppra. 3. Hypertension. will decrease lisinopril dose 4. Coronary artery disease. Continue medical management. 5. Dyslipidemia. Continue statin therapy. 6. Anemia. Monitor H and H levels. 7. History of dementia. 8. Paroxysmal atrial fibrillation. Currently in sinus rhythm. 9. Anxiety and depression. 10. Status post urinary tract infection. 11. Gastrointestinal and deep venous thrombosis prophylaxis. Problems: Exam/Review of Systems Vital Signs Vitals Vital Signs Date Time Temp Pulse Resp B/P Pulse Ox O2 Delivery O2 Flow Rate FiO2 03/14/17 07:30 97.8 82 18 114/72 99 03/13/17 20:00 Room Air Intake and Output 03/13/17 03/13/17 03/14/17 15:00 23:00 07:00 Intake Total 740 ml 240 ml Output Total 1 ml Balance 739 ml 240 ml Results Result Diagram: 03/10/17 0557 03/10/17 0557 Medications Medications Current Medications Pantoprazole (Protonix Tab) 40 mg DAILY@06 PO Last administered on 03/14/17 06 :25; Admin Dose 40 MG; Start 02/25/17 at 06:00 Polyethylene Glycol (Miralax) 17 gm DAILY PO Last administered on 03/14/17 08: 22; Admin Dose 17 GM; Start 02/25/17 at 09:00 Simethicone (Mylicon) 80 mg TID PRN PO DISTENSION/GAS/BLOATING Last administered on 03/01/17 03:01; Admin Dose 80 MG; Start 02/24/17 at 21:00 Zolpidem Tartrate (Ambien) 5 mg HS PRN PO INSOMNIA Last administered on 22:40; Admin Dose 5 MG; Start 02/24/17 at 21:00 Lactulose (Enulose) 20 gm TID PO Last administered on 03/14/17 08:22; Admin Dose 20 GM; Start 02/24/17 at 21:00 Meclizine HCl (Antivert) 25 mg DAILY PRN PO VERTIGO Last administered on 09:41; Admin Dose 25 MG; Start 02/24/17 at 21:00 Metoprolol Succinate (Toprol Xl) 12.5 mg BID PO Last administered on 03/14/17 08:21; Admin Dose 12.5 MG; Start 02/24/17 at 21:00 Ondansetron HCl (Zofran Inj) 4 mg Q6H PRN IV NAUSEA AND/OR VOMITING; Start at 21:00 Acetaminophen (Tylenol Tab) 650 mg Q6H PRN PO PAIN AND OR ELEVATED TEMP Last administered on 03/13/17 22:40; Admin Dose 650 MG; Start 02/24/17 at 21:00 Apixaban (Eliquis) 2.5 mg BID PO Last administered on 03/14/17 08:22; Admin Dose 2.5 MG; Start 02/24/17 at 21:00 Aspirin (Aspirin) 81 mg DAILY PO Last administered on 03/14/17 08:22; Admin Dose 81 MG; Start 02/25/17 at 09:00 Atorvastatin Calcium (Lipitor) 80 mg DAILY@21 PO Last administered on 03/06/17 20:48; Admin Dose 80 MG; Start 02/24/17 at 21:00 Clonazepam (Klonopin) 0.25 mg BID PO Last administered on 03/14/17 08:20; Admin Dose 0.25 MG; Start 02/24/17 at 21:00 Escitalopram Oxalate (Lexapro) 10 mg QHS PO Last administered on 03/13/17 20: 52; Admin Dose 10 MG; Start 02/24/17 at 21:00 Docusate Sodium (Colace) 100 mg BID PO Last administered on 03/14/17 08:21; Admin Dose 100 MG; Start 02/24/17 at 21:00 Clonidine (Catapres) 0.1 mg Q6H PRN PO SBP > 170; Start 02/24/17 at 21:00 Bisacodyl (Dulcolax Supp) 10 mg DAILY PRN [place] CONSTIPATION Last administered on 03/01/17 06:47; Admin Dose 10 MG; Start 02/25/17 at 04:30 Levetiracetam (Keppra Liquid) 750 mg TID PO Last administered on 03/14/17 08: 19; Admin Dose 750 MG; Start 02/28/17 at 23:00 FORTUNATO ALBERTO DO Mar 14, 2017 10:41
--- NOTE | 2017-03-14 13:07 | CONS ---
Date/Time of Note Date/Time of Note DATE: 03/14/17 TIME: 13:06 Assessment/Plan Assessment/Plan Additional Assessment/Plan 1. Syncope. -NL EF by echo/RV enlargement with NL RV function/negative trop x 3/negative orthostatics/no sig arrythmias by ecg. Area of acute infarct by MRI - more alert, will adjust Rx as needed - STABLE NOW - no change - con't to recover. Will adjust Rx as needed. 2. Hypertension-well controlled and tolerating medications- well controlled now, will monitor 3. Dyslipidemia. 4. History of cerebrovascular accident- in rehab now - COMPLIANT 5. Dementia - more alert now. STABLE. MORE alert now. 6. Possible urinary tract infection- on anti-Bx. 7. PAF on xarelto/BB - rate controlled. 8. H/O cva-acute on chronic by MRI this admit - rehab now Consultation Date/Type/Reason Admit Date/Time Feb 24, 2017 at 18:19 Initial Consult Date 02/25/17 Type of Consultation: [facility] Referring Provider: MEGAN FLORES DO 24 HR Interval Summary Free Text/Dictation NO acute events - BP in good range - no CP - will monitor closely. ROS: No fever, no chills, no nausea, no vomiting, no diarrhea/constipation No recent weight changes No chest pain, no PND, no orthopnea No dizziness, blurred vision No thirst, no heat or cold intolerance Exam/Review of Systems Vital Signs Vitals Vital Signs Date Time Temp Pulse Resp B/P Pulse Ox O2 Delivery O2 Flow Rate FiO2 03/14/17 07:30 97.8 82 18 114/72 99 03/13/17 20:00 Room Air Intake and Output 03/13/17 03/13/17 03/14/17 14:59 22:59 06:59 Intake Total 740 ml 240 ml Output Total 1 ml Balance 739 ml 240 ml Exam General: WN/WD/NAD, AOx 2-3 HEENT: Unicetric/atraumatic/EOMI (follow commands) NECK: JVD elevated, no thyromegaly Lymph: no lymphadenopathy HEART: regular with no S3, II/ systolic murmur at apex LUNGS: Coarse sounds ABD: soft, NT, ND, +BS : Intact Neuro: h/o CVA SKIN: chronic changes EXT: trace edema Results Result Diagram: 03/10/17 0557 03/10/17 0557 Medications Medications Current Medications Pantoprazole (Protonix Tab) 40 mg DAILY@06 PO Last administered on 03/14/17 06 :25; Admin Dose 40 MG; Start 02/25/17 at 06:00 Polyethylene Glycol (Miralax) 17 gm DAILY PO Last administered on 03/14/17 08: 22; Admin Dose 17 GM; Start 02/25/17 at 09:00 Simethicone (Mylicon) 80 mg TID PRN PO DISTENSION/GAS/BLOATING Last administered on 03/01/17 03:01; Admin Dose 80 MG; Start 02/24/17 at 21:00 Zolpidem Tartrate (Ambien) 5 mg HS PRN PO INSOMNIA Last administered on 22:40; Admin Dose 5 MG; Start 02/24/17 at 21:00 Lactulose (Enulose) 20 gm TID PO Last administered on 03/14/17 12:21; Admin Dose 20 GM; Start 02/24/17 at 21:00 Meclizine HCl (Antivert) 25 mg DAILY PRN PO VERTIGO Last administered on 09:41; Admin Dose 25 MG; Start 02/24/17 at 21:00 Metoprolol Succinate (Toprol Xl) 12.5 mg BID PO Last administered on 03/14/17 08:21; Admin Dose 12.5 MG; Start 02/24/17 at 21:00 Ondansetron HCl (Zofran Inj) 4 mg Q6H PRN IV NAUSEA AND/OR VOMITING; Start at 21:00 Acetaminophen (Tylenol Tab) 650 mg Q6H PRN PO PAIN AND OR ELEVATED TEMP Last administered on 03/13/17 22:40; Admin Dose 650 MG; Start 02/24/17 at 21:00 Apixaban (Eliquis) 2.5 mg BID PO Last administered on 03/14/17 08:22; Admin Dose 2.5 MG; Start 02/24/17 at 21:00 Aspirin (Aspirin) 81 mg DAILY PO Last administered on 03/14/17 08:22; Admin Dose 81 MG; Start 02/25/17 at 09:00 Atorvastatin Calcium (Lipitor) 80 mg DAILY@21 PO Last administered on 03/06/17 20:48; Admin Dose 80 MG; Start 02/24/17 at 21:00 Clonazepam (Klonopin) 0.25 mg BID PO Last administered on 03/14/17 08:20; Admin Dose 0.25 MG; Start 02/24/17 at 21:00 Escitalopram Oxalate (Lexapro) 10 mg QHS PO Last administered on 03/13/17 20: 52; Admin Dose 10 MG; Start 02/24/17 at 21:00 Docusate Sodium (Colace) 100 mg BID PO Last administered on 03/14/17 08:21; Admin Dose 100 MG; Start 02/24/17 at 21:00 Clonidine (Catapres) 0.1 mg Q6H PRN PO SBP > 170; Start 02/24/17 at 21:00 Bisacodyl (Dulcolax Supp) 10 mg DAILY PRN [place] CONSTIPATION Last administered on 03/01/17 06:47; Admin Dose 10 MG; Start 02/25/17 at 04:30 Levetiracetam (Keppra Liquid) 750 mg TID PO Last administered on 03/14/17 12: 21; Admin Dose 750 MG; Start 02/28/17 at 23:00 NAGI NARANJO MD Mar 14, 2017 13:07
[2017-03-14 14:00] VITALS: BP 106/55; RESP 18
[2017-03-14 20:00] VITALS: BP_SYST 101; BP_SYST 131; BP_DIAS 61; BP_DIAS 95; RESP 18
[2017-03-14] MEDS: ATORVASTATIN 80 MG TAB PO SCH (21:21)
[2017-03-14] MEDS: ESCITALOPRAM 10 MG TAB PO SCH (21:21)
[2017-03-15] MEDS: ACETAMINOPHEN 325 MG TAB PO PRN ×2 (00:16→21:05)
[2017-03-15] MEDS: ZOLPIDEM 5 MG TAB PO PRN ×2 (00:16→21:05)
[2017-03-15] MEDS: PANTOPRAZOLE (EC) 40 MG TAB PO SCH (06:25)
[2017-03-15 07:30] VITALS: BP 130/70; RESP 20
--- NOTE | 2017-03-15 09:14 | CONS ---
Date/Time of Note Date/Time of Note DATE: 03/15/17 TIME: 09:12 Assessment/Plan Assessment/Plan Additional Assessment/Plan 1. Syncope. -NL EF by echo/RV enlargement with NL RV function/negative trop x 3/negative orthostatics/no sig arrythmias by ecg. Area of acute infarct by MRI - more alert, will adjust Rx as needed - STABLE NOW - no change - con't to recover. Will adjust Rx as needed. REHAB NOW. 2. Hypertension-well controlled and tolerating medications- well controlled now, will monitor - IN GOD RANGE. 3. Dyslipidemia. 4. History of cerebrovascular accident- in rehab now - COMPLIANT 5. Dementia - more alert now. STABLE. MORE alert now. 6. Possible urinary tract infection- on anti-Bx. 7. PAF on xarelto/BB - rate controlled. NO bleeding now. 8. H/O cva-acute on chronic by MRI this admit - rehab now Consultation Date/Type/Reason Admit Date/Time Feb 24, 2017 at 18:19 Initial Consult Date 02/25/17 Type of Consultation: [facility] Referring Provider: MEGAN FLORES DO 24 HR Interval Summary Free Text/Dictation NO acute events - BP in good range - NO CP - will monitor. ROS: No fever, no chills, no nausea, no vomiting, no diarrhea/constipation No recent weight changes No chest pain, no PND, no orthopnea No dizziness, blurred vision No thirst, no heat or cold intolerance Exam/Review of Systems Vital Signs Vitals Vital Signs Date Time Temp Pulse Resp B/P Pulse Ox O2 Delivery O2 Flow Rate FiO2 03/14/17 20:00 98.0 67 18 101/61 97 03/13/17 20:00 Room Air Intake and Output 03/14/17 03/14/17 03/15/17 15:00 23:00 07:00 Intake Total 860 ml 280 ml Balance 860 ml 280 ml Exam General: WN/WD/NAD, AOx 2-3 HEENT: Unicetric/atraumatic/EOMI (follows commands) NECK: JVD elevated, no thyromegaly Lymph: no lymphadenopathy HEART: regular with no S3, II/ systolic murmur at apex LUNGS: Coarse sounds ABD: soft, NT, ND, +BS : Intact Neuro: post CVA SKIN: chronic changes EXT: trace edema Medications Medications Current Medications Pantoprazole (Protonix Tab) 40 mg DAILY@06 PO Last administered on 03/15/17 06 :25; Admin Dose 40 MG; Start 02/25/17 at 06:00 Polyethylene Glycol (Miralax) 17 gm DAILY PO Last administered on 03/14/17 08: 22; Admin Dose 17 GM; Start 02/25/17 at 09:00 Simethicone (Mylicon) 80 mg TID PRN PO DISTENSION/GAS/BLOATING Last administered on 03/15/17 00:16; Admin Dose 80 MG; Start 02/24/17 at 21:00 Zolpidem Tartrate (Ambien) 5 mg HS PRN PO INSOMNIA Last administered on 00:16; Admin Dose 5 MG; Start 02/24/17 at 21:00 Lactulose (Enulose) 20 gm TID PO Last administered on 03/14/17 21:25; Admin Dose 20 GM; Start 02/24/17 at 21:00 Meclizine HCl (Antivert) 25 mg DAILY PRN PO VERTIGO Last administered on 09:41; Admin Dose 25 MG; Start 02/24/17 at 21:00 Metoprolol Succinate (Toprol Xl) 12.5 mg BID PO Last administered on 03/14/17 08:21; Admin Dose 12.5 MG; Start 02/24/17 at 21:00 Ondansetron HCl (Zofran Inj) 4 mg Q6H PRN IV NAUSEA AND/OR VOMITING; Start at 21:00 Acetaminophen (Tylenol Tab) 650 mg Q6H PRN PO PAIN AND OR ELEVATED TEMP Last administered on 03/15/17 00:16; Admin Dose 650 MG; Start 02/24/17 at 21:00 Apixaban (Eliquis) 2.5 mg BID PO Last administered on 03/14/17 21:23; Admin Dose 2.5 MG; Start 02/24/17 at 21:00 Aspirin (Aspirin) 81 mg DAILY PO Last administered on 03/14/17 08:22; Admin Dose 81 MG; Start 02/25/17 at 09:00 Atorvastatin Calcium (Lipitor) 80 mg DAILY@21 PO Last administered on 21:21; Admin Dose 80 MG; Start 02/24/17 at 21:00 Clonazepam (Klonopin) 0.25 mg BID PO Last administered on 03/14/17 21:23; Admin Dose 0.25 MG; Start 02/24/17 at 21:00 Escitalopram Oxalate (Lexapro) 10 mg QHS PO Last administered on 03/14/17 21: 21; Admin Dose 10 MG; Start 02/24/17 at 21:00 Docusate Sodium (Colace) 100 mg BID PO Last administered on 03/14/17 21:21; Admin Dose 100 MG; Start 02/24/17 at 21:00 Clonidine (Catapres) 0.1 mg Q6H PRN PO SBP > 170; Start 02/24/17 at 21:00 Bisacodyl (Dulcolax Supp) 10 mg DAILY PRN [place] CONSTIPATION Last administered on 03/01/17 06:47; Admin Dose 10 MG; Start 02/25/17 at 04:30 Levetiracetam (Keppra Liquid) 750 mg TID PO Last administered on 03/14/17 21: 25; Admin Dose 750 MG; Start 02/28/17 at 23:00 NAGI NARANJO MD Mar 15, 2017 09:14
[2017-03-15] MEDS: LACTULOSE 30ML CUP PO SCH ×3 (09:49→21:06)
[2017-03-15] MEDS: DOCUSATE SODIUM 100 MG CAP PO SCH ×2 (09:49→21:05)
[2017-03-15] MEDS: LEVETIRACETAM (100 MG/ML) 5ML CUP PO SCH ×3 (09:49→21:05)
[2017-03-15] MEDS: POLYETHYLENE GLYCOL 17 GM PACKET PO SCH (09:50)
[2017-03-15] MEDS: ASPIRIN 81 MG TAB PO SCH (09:50)
[2017-03-15] MEDS: APIXABAN 5 MG TABLET PO SCH ×2 (09:50→21:06)
[2017-03-15] MEDS: clonAZEPAM 0.5 MG TAB PO SCH ×2 (09:50→21:06)
[2017-03-15] MEDS: METOPROLOL (XL) 25 MG TAB PO SCH ×2 (09:51→21:00)
--- NOTE | 2017-03-15 12:35 | CONS ---
Date/Time of Note Date/Time of Note DATE: 03/15/17 TIME: 12:35 Consult Date/Type/Reason Admit Date/Time Feb 24, 2017 at 18:19 Initial Consult Date 02/25/17 Type of Consultation: [facility] Ordering Provider: MEGAN FLORES DO Objective Vital Signs Date Time Temp Pulse Resp B/P Pulse Ox O2 Delivery O2 Flow Rate FiO2 03/15/17 07:30 97.6 75 20 130/70 97 03/13/17 20:00 Room Air Intake and Output 03/14/17 03/14/17 03/15/17 15:00 23:00 07:00 Intake Total 860 ml 280 ml Balance 860 ml 280 ml INTERDISCIPLINARY TEAM CONFERENCE BOWEL- Cont/incont BLADDER-Cont/incont SKIN- improving OT- DRESSING-max/dep BATHING-max/dep TOILETING-max/dep PT- BED MOBILITY-max/dep TRANSFERS-max/dep W.C. MOBILITY-max/dep SPEECH- COGNITION-sba DYPHAGIA A/P- Interdisciplinary team conference held today. Please see interdisciplinary sheet. Working toward d.c. on 03/16 with post discharge follow up of physical therapy, occupational therapy. Given current functional level, recommend SNF. Results/Medications Medications Current Medications Pantoprazole (Protonix Tab) 40 mg DAILY@06 PO Last administered on 03/15/17 06 :25; Admin Dose 40 MG; Start 02/25/17 at 06:00 Polyethylene Glycol (Miralax) 17 gm DAILY PO Last administered on 03/15/17 09: 50; Admin Dose 17 GM; Start 02/25/17 at 09:00 Simethicone (Mylicon) 80 mg TID PRN PO DISTENSION/GAS/BLOATING Last administered on 03/15/17 00:16; Admin Dose 80 MG; Start 02/24/17 at 21:00 Zolpidem Tartrate (Ambien) 5 mg HS PRN PO INSOMNIA Last administered on 00:16; Admin Dose 5 MG; Start 02/24/17 at 21:00 Lactulose (Enulose) 20 gm TID PO Last administered on 03/15/17 09:49; Admin Dose 20 GM; Start 02/24/17 at 21:00 Meclizine HCl (Antivert) 25 mg DAILY PRN PO VERTIGO Last administered on 09:41; Admin Dose 25 MG; Start 02/24/17 at 21:00 Metoprolol Succinate (Toprol Xl) 12.5 mg BID PO Last administered on 03/15/17 09:51; Admin Dose 12.5 MG; Start 02/24/17 at 21:00 Ondansetron HCl (Zofran Inj) 4 mg Q6H PRN IV NAUSEA AND/OR VOMITING; Start at 21:00 Acetaminophen (Tylenol Tab) 650 mg Q6H PRN PO PAIN AND OR ELEVATED TEMP Last administered on 03/15/17 00:16; Admin Dose 650 MG; Start 02/24/17 at 21:00 Apixaban (Eliquis) 2.5 mg BID PO Last administered on 03/15/17 09:50; Admin Dose 2.5 MG; Start 02/24/17 at 21:00 Aspirin (Aspirin) 81 mg DAILY PO Last administered on 03/15/17 09:50; Admin Dose 81 MG; Start 02/25/17 at 09:00 Atorvastatin Calcium (Lipitor) 80 mg DAILY@21 PO Last administered on 21:21; Admin Dose 80 MG; Start 02/24/17 at 21:00 Clonazepam (Klonopin) 0.25 mg BID PO Last administered on 03/15/17 09:50; Admin Dose 0.25 MG; Start 02/24/17 at 21:00 Escitalopram Oxalate (Lexapro) 10 mg QHS PO Last administered on 03/14/17 21: 21; Admin Dose 10 MG; Start 02/24/17 at 21:00 Docusate Sodium (Colace) 100 mg BID PO Last administered on 03/15/17 09:49; Admin Dose 100 MG; Start 02/24/17 at 21:00 Clonidine (Catapres) 0.1 mg Q6H PRN PO SBP > 170; Start 02/24/17 at 21:00 Bisacodyl (Dulcolax Supp) 10 mg DAILY PRN [place] CONSTIPATION Last administered on 03/01/17 06:47; Admin Dose 10 MG; Start 02/25/17 at 04:30 Levetiracetam (Keppra Liquid) 750 mg TID PO Last administered on 03/15/17 09: 49; Admin Dose 750 MG; Start 02/28/17 at 23:00 FARIDEH COOK MD Mar 15, 2017 12:35
--- NOTE | 2017-03-15 14:57 | PN ---
DATE: 03/15/2017 SUBJECTIVE DATA: The patient is stable. No events overnight. No fevers, chills, nausea, vomiting. OBJECTIVE DATA: VITAL SIGNS: Blood pressure 130/70, temperature 97.6, pulse 75, respirations 20. HEENT: Head is normocephalic. Pupils are reactive to light. NECK: Supple. HEART: Regular rate. LUNGS: Diminished breath sounds at the base. ABDOMEN: Soft, nontender to palpation. No rebound or guarding. EXTREMITIES: Negative for clubbing, cyanosis, no edema. DERMATOLOGIC: Clean. No rashes. MUSCULOSKELETAL: No joint effusion. NEUROLOGIC: No change in examination. MEDICATIONS: Reviewed. LABORATORY DATA: Reviewed. No new labs. ASSESSMENT AND PLAN: 1. Acute cerebrovascular accident. The patient is currently stable. Continue medical management with Eliquis, aspirin and Lipitor. 2. No seizures. Continue Keppra. 3. Hypertension. Continue current blood pressure regimen. 4. Coronary artery disease. Continue medical management. 5. Dyslipidemia. Continue statin therapy. 6. Anemia. Monitor hemoglobin and hematocrit levels. 7. Paroxysmal atrial fibrillation, currently sinus rhythm. Continue current treatment plan. 8. Status post urinary tract infection. 9. Anxiety, depression. 10. History of dementia. 11. Gastrointestinal and deep venous thrombosis prophylaxis. Dictated By: Derrick Bloom DO /anders/tere /Document#: [id number]
[2017-03-15 20:00] VITALS: BP 98/53; RESP 18
[2017-03-15] MEDS: ATORVASTATIN 80 MG TAB PO SCH (21:05)
[2017-03-15] MEDS: ESCITALOPRAM 10 MG TAB PO SCH (21:05)
--- NOTE | 2017-03-15 22:04 | CONS ---
Date/Time of Note Date/Time of Note DATE: 03/15/17 TIME: 22:03 Assessment/Plan Assessment/Plan Chief Complaint/Hosp Course Hypercoagulable state Acute cerebrovascular accident. The patient will continue current medical management of Eliquis, aspirin, and Lipitor. ANEMIA- COMPLEX, MULTIFACTORIAL LOOKS COMPENSATED AT PRESENT CONT TO MONITOR Seizure disorder. Continue Keppra. Hypertension. Continue current blood pressure regimen. This is status post urinary tract infection. Coronary artery disease. Continue current medical management. Continue statin therapy. Dementia. Paroxysmal atrial fibrillation, currently in sinus rhythm. Anxiety and depression. Continue Lexapro. Gastrointestinal and deep venous thrombosis prophylaxis. Continue proton pump inhibitor and Eliquis Problems: Consultation Date/Type/Reason Admit Date/Time Feb 24, 2017 at 18:19 Initial Consult Date 02/25/17 Type of Consultation: [facility] Referring Provider: MEGAN FLORES DO 24 HR Interval Summary Free Text/Dictation ALL NOTED DC PLAN IN PROGRESS Exam/Review of Systems Vital Signs Vitals Vital Signs Date Time Temp Pulse Resp B/P Pulse Ox O2 Delivery O2 Flow Rate FiO2 03/15/17 07:30 97.6 75 20 130/70 97 03/13/17 20:00 Room Air Intake and Output 03/14/17 03/14/17 03/15/17 15:00 23:00 07:00 Intake Total 860 ml 280 ml Balance 860 ml 280 ml Exam HEENT: Head is normocephalic. NECK: Supple. HEART: Regular rate. LUNGS: Diminished breath sounds at the base. ABDOMEN: Soft. Nontender to palpation. No guarding. EXTREMITIES: Negative for clubbing, cyanosis, or edema. DERMATOLOGIC: No rashes. MUSCULOSKELETAL: No joint effusion. NEUROLOGIC: The patient has left-sided hemiparesis. No change. Medications Medications Current Medications Pantoprazole (Protonix Tab) 40 mg DAILY@06 PO Last administered on 03/15/17 06 :25; Admin Dose 40 MG; Start 02/25/17 at 06:00 Polyethylene Glycol (Miralax) 17 gm DAILY PO Last administered on 03/15/17 09: 50; Admin Dose 17 GM; Start 02/25/17 at 09:00 Simethicone (Mylicon) 80 mg TID PRN PO DISTENSION/GAS/BLOATING Last administered on 03/15/17 00:16; Admin Dose 80 MG; Start 02/24/17 at 21:00 Zolpidem Tartrate (Ambien) 5 mg HS PRN PO INSOMNIA Last administered on 21:05; Admin Dose 5 MG; Start 02/24/17 at 21:00 Lactulose (Enulose) 20 gm TID PO Last administered on 03/15/17 21:06; Admin Dose 20 GM; Start 02/24/17 at 21:00 Meclizine HCl (Antivert) 25 mg DAILY PRN PO VERTIGO Last administered on 09:41; Admin Dose 25 MG; Start 02/24/17 at 21:00 Metoprolol Succinate (Toprol Xl) 12.5 mg BID PO Last administered on 03/15/17 09:51; Admin Dose 12.5 MG; Start 02/24/17 at 21:00 Ondansetron HCl (Zofran Inj) 4 mg Q6H PRN IV NAUSEA AND/OR VOMITING; Start at 21:00 Acetaminophen (Tylenol Tab) 650 mg Q6H PRN PO PAIN AND OR ELEVATED TEMP Last administered on 03/15/17 21:05; Admin Dose 650 MG; Start 02/24/17 at 21:00 Apixaban (Eliquis) 2.5 mg BID PO Last administered on 03/15/17 21:06; Admin Dose 2.5 MG; Start 02/24/17 at 21:00 Aspirin (Aspirin) 81 mg DAILY PO Last administered on 03/15/17 09:50; Admin Dose 81 MG; Start 02/25/17 at 09:00 Atorvastatin Calcium (Lipitor) 80 mg DAILY@21 PO Last administered on 21:05; Admin Dose 80 MG; Start 02/24/17 at 21:00 Clonazepam (Klonopin) 0.25 mg BID PO Last administered on 03/15/17 21:06; Admin Dose 0.25 MG; Start 02/24/17 at 21:00 Escitalopram Oxalate (Lexapro) 10 mg QHS PO Last administered on 03/15/17 21: 05; Admin Dose 10 MG; Start 02/24/17 at 21:00 Docusate Sodium (Colace) 100 mg BID PO Last administered on 9/18/17at 21:05; Admin Dose 100 MG; Start 02/24/17 at 21:00 Clonidine (Catapres) 0.1 mg Q6H PRN PO SBP > 170; Start 02/24/17 at 21:00 Bisacodyl (Dulcolax Supp) 10 mg DAILY PRN [place] CONSTIPATION Last administered on 03/01/17 06:47; Admin Dose 10 MG; Start 02/25/17 at 04:30 Levetiracetam (Keppra Liquid) 750 mg TID PO Last administered on 03/15/17 21: 05; Admin Dose 750 MG; Start 02/28/17 at 23:00 TERRA RANGEL MD Mar 15, 2017 22:04
[2017-03-16 02:00] VITALS: BP 118/63; RESP 18
[2017-03-16] MEDS: PANTOPRAZOLE (EC) 40 MG TAB PO SCH (06:40)
[2017-03-16 09:01] VITALS: BP 132/74; RESP 18
--- NOTE | 2017-03-16 09:06 | CONS ---
Date/Time of Note Date/Time of Note DATE: 03/16/17 TIME: 09:04 Assessment/Plan Assessment/Plan Additional Assessment/Plan 1. Syncope. -NL EF by echo/RV enlargement with NL RV function/negative trop x 3/negative orthostatics/no sig arrythmias by ecg. Area of acute infarct by MRI - more alert, will adjust Rx as needed - STABLE NOW - no change - con't to recover. Will adjust Rx as needed. REHAB NOW. NO NEW EPISODES. 2. Hypertension-well controlled and tolerating medications- well controlled now, will monitor - IN GOD RANGE. RATE CONTROLLED. 3. Dyslipidemia. 4. History of cerebrovascular accident- in rehab now - COMPLIANT 5. Dementia - MORE alert now. Con't rehab. 6. Possible urinary tract infection- on anti-Bx. 7. PAF on xarelto/BB - rate controlled. NO bleeding now. 8. H/O cva-acute on chronic by MRI this admit - rehab now Consultation Date/Type/Reason Admit Date/Time Feb 24, 2017 at 18:19 Initial Consult Date 02/25/17 Type of Consultation: [facility] Referring Provider: MEGAN FLORES DO 24 HR Interval Summary Free Text/Dictation Gradually improving - stable overall - will monitor now, ROS: No fever, no chills, no nausea, no vomiting, no diarrhea/constipation No recent weight changes No chest pain, no PND, no orthopnea No dizziness, blurred vision No thirst, no heat or cold intolerance Exam/Review of Systems Vital Signs Vitals Vital Signs Date Time Temp Pulse Resp B/P Pulse Ox O2 Delivery O2 Flow Rate FiO2 03/16/17 09:01 98.5 66 18 132/74 98 03/13/17 20:00 Room Air Intake and Output 03/15/17 03/15/17 03/16/17 15:00 23:00 07:00 Intake Total 300 ml 260 ml Balance 300 ml 260 ml Exam General: WN/WD/NAD, AOx 1-2 HEENT: Unicetric/atraumatic/EOMI (follow some commands) NECK: JVD elevated, no thyromegaly Lymph: no lymphadenopathy HEART: regular with no S3, II/ systolic murmur at apex LUNGS: Coarse sounds ABD: soft, NT, ND, +BS : Intact Neuro: post CVA SKIN: chronic changes EXT: trace edema Medications Medications Current Medications Pantoprazole (Protonix Tab) 40 mg DAILY@06 PO Last administered on 03/16/17 06 :40; Admin Dose 40 MG; Start 02/25/17 at 06:00 Polyethylene Glycol (Miralax) 17 gm DAILY PO Last administered on 03/15/17 09: 50; Admin Dose 17 GM; Start 02/25/17 at 09:00 Simethicone (Mylicon) 80 mg TID PRN PO DISTENSION/GAS/BLOATING Last administered on 03/15/17 00:16; Admin Dose 80 MG; Start 02/24/17 at 21:00 Zolpidem Tartrate (Ambien) 5 mg HS PRN PO INSOMNIA Last administered on 21:05; Admin Dose 5 MG; Start 02/24/17 at 21:00 Lactulose (Enulose) 20 gm TID PO Last administered on 03/15/17 21:06; Admin Dose 20 GM; Start 02/24/17 at 21:00 Meclizine HCl (Antivert) 25 mg DAILY PRN PO VERTIGO Last administered on 09:41; Admin Dose 25 MG; Start 02/24/17 at 21:00 Metoprolol Succinate (Toprol Xl) 12.5 mg BID PO Last administered on 03/15/17 09:51; Admin Dose 12.5 MG; Start 02/24/17 at 21:00 Ondansetron HCl (Zofran Inj) 4 mg Q6H PRN IV NAUSEA AND/OR VOMITING; Start at 21:00 Acetaminophen (Tylenol Tab) 650 mg Q6H PRN PO PAIN AND OR ELEVATED TEMP Last administered on 03/15/17 21:05; Admin Dose 650 MG; Start 02/24/17 at 21:00 Apixaban (Eliquis) 2.5 mg BID PO Last administered on 03/15/17 21:06; Admin Dose 2.5 MG; Start 02/24/17 at 21:00 Aspirin (Aspirin) 81 mg DAILY PO Last administered on 03/15/17 09:50; Admin Dose 81 MG; Start 02/25/17 at 09:00 Atorvastatin Calcium (Lipitor) 80 mg DAILY@21 PO Last administered on 21:05; Admin Dose 80 MG; Start 02/24/17 at 21:00 Clonazepam (Klonopin) 0.25 mg BID PO Last administered on 03/15/17 21:06; Admin Dose 0.25 MG; Start 02/24/17 at 21:00 Escitalopram Oxalate (Lexapro) 10 mg QHS PO Last administered on 03/15/17 21: 05; Admin Dose 10 MG; Start 02/24/17 at 21:00 Docusate Sodium (Colace) 100 mg BID PO Last administered on 03/15/17 21:05; Admin Dose 100 MG; Start 02/24/17 at 21:00 Clonidine (Catapres) 0.1 mg Q6H PRN PO SBP > 170; Start 02/24/17 at 21:00 Bisacodyl (Dulcolax Supp) 10 mg DAILY PRN [place] CONSTIPATION Last administered on 03/01/17 06:47; Admin Dose 10 MG; Start 02/25/17 at 04:30 Levetiracetam (Keppra Liquid) 750 mg TID PO Last administered on 03/15/17 21: 05; Admin Dose 750 MG; Start 02/28/17 at 23:00 NAGI NARANJO MD Mar 16, 2017 09:06
[2017-03-16] MEDS: ASPIRIN 81 MG TAB PO SCH (10:36)
[2017-03-16] MEDS: APIXABAN 5 MG TABLET PO SCH (10:38)
[2017-03-16] MEDS: LACTULOSE 30ML CUP PO SCH ×2 (10:39→13:00)
[2017-03-16] MEDS: LEVETIRACETAM (100 MG/ML) 5ML CUP PO SCH ×2 (10:40→13:22)
[2017-03-16] MEDS: DOCUSATE SODIUM 100 MG CAP PO SCH (10:41)
[2017-03-16] MEDS: clonAZEPAM 0.5 MG TAB PO SCH (10:41)
[2017-03-16] MEDS: POLYETHYLENE GLYCOL 17 GM PACKET PO SCH (10:41)
[2017-03-16] MEDS: METOPROLOL (XL) 25 MG TAB PO SCH (10:43)
--- NOTE | 2017-03-16 12:03 | DS ---
Date/Time of Note Date/Time of Note DATE: 03/16/17 TIME: 12:00 Discharge Summary Admission/Discharge Info Admit Date/Time Feb 24, 2017 at 18:19 Discharge Date/Time Discharge Diagnosis 1. 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 2. Possible seizure disorder. 3. Hypertension. 4. Coronary artery disease. 5. Dyslipidemia. 6. Paroxysmal atrial fibrillation. 7. Anemia. 8. History of cerebrovascular accident. 9. Impairments in self-care, mobility and cognition. Patient Condition: Fair Hospital Course Patient admitted for comprehensive interdisciplinary rehab. She made fluctuating gains with rehab treatment program, and still required assistance for self care and mobility. Functional status reviewed with son, and given continued rehab needs, patient transferred to lower level of care. Patient now able to tolerate lower level of care at SNF. Home Meds Reported Medications Lactulose (Generlac) 10 Gm/15 Ml Solution, 30 ML PO TID 02/15/17 Donepezil* (Donepezil*) 23 Mg Tablet, 23 MG PO DAILY, #30 TAB 02/15/17 Meclizine Hcl* (Meclizine Hcl*) 25 Mg Tablet, 25 MG PO DAILY Y for DIZZINESS, TAB 02/15/17 Esomeprazole Mag Trihydrate (Nexium) 40 Mg Capsule.dr, 40 MG PO DAILY, #30 CAP 02/15/17 Smmftj-Udyrcuwt-Lerazsi* (Zaida WALKER* 3,000) 3,000 L-9,500-15,000 Unit Capsule.dr , 1 CAP PO WITH MEALS, CAP 02/15/17 Simethicone* (Mylicon*) 80 Mg Tab, 160 MG PO TID Y for STOMACH UPSET, TAB 02/15/17 Metoprolol Succinate* (Toprol XL*) 25 Mg Tab.sr.24h, 12.5 MG PO BID, #30 TAB HOLD FOR SBP<110 02/15/17 Temazepam* (Temazepam*) 15 Mg Capsule, 15 MG PO HS Y for INSOMNIA, CAP 10/05/16 Escitalopram Oxalate* (Lexapro*) 10 Mg Tablet, 10 MG PO QHS, #30 TAB 10/05/16 Polyethylene Glycol* (Miralax*) 17 Gm Powd.pack, 17 GM PO DAILY, #30 PACKET 10/05/16 Lisinopril* (Lisinopril*) 5 Mg Tablet, 5 MG PO DAILY, #30 TAB HOLD IF SBP<110 10/05/16 Docusate Sodium* (Colace*) 100 Mg Capsule, 100 MG PO BID, #60 CAP 10/05/16 Atorvastatin* (Atorvastatin*) 80 Mg Tablet, 80 MG PO QHS, #30 TAB 10/05/16 Primary Care Provider MD JOYCE Miranda LIVA L. MD Mar 16, 2017 12:03
--- NOTE | 2017-03-16 12:26 | PN ---
DATE: 03/16/2017 SUBJECTIVE DATA: The patient is stable. No events overnight. No fevers, chills, nausea, vomiting. OBJECTIVE DATA: VITAL SIGNS: Blood pressure 132/74, temperature 98.5, pulse 66, respirations 18. HEENT: Head is normocephalic. NECK: Supple. HEART: Regular rate. LUNGS: Diminished breath sounds at the base. ABDOMEN: Soft, nontender to palpation. No rebound or guarding. EXTREMITIES: Negative for clubbing, cyanosis. No edema. DERMATOLOGIC: Clean. No rashes. MUSCULOSKELETAL: No joint effusion. NEUROLOGIC: Unchanged exam. MEDICATIONS: Reviewed. LABORATORY AND DIAGNOSTIC DATA: Been reviewed. ASSESSMENT AND PLAN: 1. Acute cerebrovascular accident. The patient is currently stable. Continue current medical management. 2. Seizure disorder. Continue Keppra. 3. Hypertension. Continue current blood pressure regimen. 4. Coronary artery disease. Continue medical management. 5. Dyslipidemia. Continue statin therapy. 6. Anemia. Monitor hemoglobin and hematocrit levels. 7. Paroxysmal atrial fibrillation. Currently sinus rhythm. 8. Status post urinary tract infection. 9. Anxiety and depression. 10. History of dementia. 11. Gastrointestinal and deep venous thrombosis prophylaxis. Dictated By: Derrick Bloom DO /anders/cindy /Document#: [id number]
--- NOTE | 2017-03-16 22:57 | CONS ---
Date/Time of Note Date/Time of Note DATE: 03/16/17 TIME: 10:56 VK LE Assessment/Plan Assessment/Plan Chief Complaint/Hosp Course Hypercoagulable state Acute cerebrovascular accident. The patient will continue current medical management of Eliquis, aspirin, and Lipitor. ANEMIA- COMPLEX, MULTIFACTORIAL LOOKS COMPENSATED AT PRESENT CONT TO MONITOR Seizure disorder. Continue Keppra. Hypertension. Continue current blood pressure regimen. This is status post urinary tract infection. Coronary artery disease. Continue current medical management. Continue statin therapy. Dementia. Paroxysmal atrial fibrillation, currently in sinus rhythm. Anxiety and depression. Continue Lexapro. Gastrointestinal and deep venous thrombosis prophylaxis. Continue proton pump inhibitor and Eliquis Problems: Consultation Date/Type/Reason Admit Date/Time Feb 24, 2017 at 18:19 Initial Consult Date 02/25/17 Type of Consultation: [facility] Referring Provider: MEGAN FLORES DO 24 HR Interval Summary Free Text/Dictation ALL NOTED GOING TO SNF TODAY Exam/Review of Systems Vital Signs Vitals Vital Signs Date Time Temp Pulse Resp B/P Pulse Ox O2 Delivery O2 Flow Rate FiO2 03/16/17 09:01 98.5 66 18 132/74 98 03/13/17 20:00 Room Air Intake and Output 03/15/17 03/15/17 03/16/17 15:00 23:00 07:00 Intake Total 300 ml 260 ml Balance 300 ml 260 ml Exam HEENT: Head is normocephalic. NECK: Supple. HEART: Regular rate. LUNGS: Diminished breath sounds at the base. ABDOMEN: Soft. Nontender to palpation. No guarding. EXTREMITIES: Negative for clubbing, cyanosis, or edema. DERMATOLOGIC: No rashes. MUSCULOSKELETAL: No joint effusion. NEUROLOGIC: The patient has left-sided hemiparesis. No change. TERRA RANGEL MD Mar 16, 2017 22:57
== END 2017-03-16 13:30 | DRG 57 ==
LOC: VRC 02-24 18:19
PROVIDERS: ADMIT Physical Medicine & Rehabilitation; ATTEND Internal Medicine
PROC: F08Z1ZZ Dressing Techniques Treatment (ICD-10-PCS; principal; 2017-02-24)
PROC: F07Z5ZZ Bed Mobility Treatment (ICD-10-PCS; 2017-02-24)
PROC: F06Z6ZZ Communicative/Cognitive Integration Skills Treatment (ICD-10-PCS; 2017-02-24)
DX: I69.354 Hemiplegia and hemiparesis following cerebral infarction affecting left non-dominant side (principal); I48.91 Unspecified atrial fibrillation; F03.90 Unspecified dementia, unspecified severity, without behavioral disturbance, psychotic disturbance, mood disturbance, and anxiety; N39.0 Urinary tract infection, site not specified; I10 Essential (primary) hypertension; F32.9 Major depressive disorder, single episode, unspecified; E78.5 Hyperlipidemia, unspecified; R55 Syncope and collapse; G40.909 Epilepsy, unspecified, not intractable, without status epilepticus; D64.9 Anemia, unspecified; F41.9 Anxiety disorder, unspecified; I25.10 Atherosclerotic heart disease of native coronary artery without angina pectoris; M54.2 Cervicalgia; F01.50 Vascular dementia, unspecified severity, without behavioral disturbance, psychotic disturbance, mood disturbance, and anxiety
CPT/HCPCS: 80048; 80053; 81003; 83735; 84100; 85025; 87081; 87086; 92507; 92523; 92526; 92610; 97110; 97112; 97150; 97163; 97530; 97535; 97542; A4310